=== PATIENT | female | born 1945 | race African-American/Black ===

== ENCOUNTER 2018-06-09 15:41 | Inpatient (IN) | payer MEDICARE, OTHER ==
[~2018-06-09] VITALS: Ht 167.6 cm; Wt 103.0 kg
[~2018-06-09 15:41] MED LIST: LIPITOR10 MG PO; NAPROXEN500 M1 ORAL; NORCO 5-325 TA1 EACH ORAL; NORVASC10 MG PO
[2018-06-09 21:30] VITALS: BP 146/67
[2018-06-09] MEDS ORDERED: Acetaminophen 500mg (ES) tab ORAL PRN (21:30)
[2018-06-09] MEDS: Docusate 100mg cap ORAL SCH (22:36)
[2018-06-09] MEDS: Atorvastatin 20mg tab ORAL SCH (22:39)
[2018-06-09] MEDS: Carvedilol 12.5mg tab ORAL SCH (22:39)
[2018-06-09] MEDS: Heparin 5000 units/ml inj SUBQ SCH (23:08)
[2018-06-10] VITALS: BP 111/53
[2018-06-10 04:00] VITALS: BP 121/53
[2018-06-10] MEDS: Heparin 5000 units/ml inj SUBQ SCH ×3 (05:38→22:19)
[2018-06-10] MEDS: metFORMIN 500mg tab ORAL SCH ×3 (06:25→16:59)
[2018-06-10] MEDS: NovoLOG Insulin Flexpen SUBQ SCH ×4 (06:26→20:36)
[2018-06-10] MEDS ORDERED: METFORMIN HCL500 M1 ORAL (06:29)
[2018-06-10] MEDS ORDERED: ASPIRIN81 M3 PO (06:49)
[2018-06-10] MEDS ORDERED: SPIRONOLACTONE100 MG ORAL (06:49)
[2018-06-10] MEDS ORDERED: APRESOLINE50 MG ORAL (06:49)
[2018-06-10] MEDS ORDERED: AMLODIPINE BESYL5 MG ORAL (06:49)
[2018-06-10] MEDS ORDERED: COLACE100 MG ORAL (06:49)
[2018-06-10] MEDS ORDERED: CRESTOR10 M1 ORAL (06:49)
[2018-06-10] MEDS ORDERED: FUROSEMIDE40 MG/5 ML ORAL (06:49)
[2018-06-10] MEDS ORDERED: PROTONIX20 MG ORAL (06:49)
[2018-06-10] MEDS ORDERED: COREG12.5 MG ORAL (06:49)
[2018-06-10] MEDS ORDERED: BENICAR HCT 401 EAC1 ORAL (06:50)
[2018-06-10 06:59] LABS: ALANINE AMINOTRANSFERASE 15 U/L (12-78); ALBUMIN 3.3 G/DL (3.4-5.0); ALBUMIN/GLOBULIN RATIO 0.7 (1.0-2.7); ALKALINE PHOSPHATASE 82 U/L (46-116); ANION GAP 8 mmol/L (5-15); ASPARTATE AMINO TRANSFERASE 13 U/L (15-37); BILIRUBIN,TOTAL 0.4 MG/DL (0.2-1.0); BLOOD UREA NITROGEN 43 mg/dL (7-18); CALCIUM 8.8 MG/DL (8.5-10.1); CARBON DIOXIDE 28 MMOL/L (21-32); CHLORIDE 101 MMOL/L (98-107); CHOLESTEROL 108 MG/DL (< 200); CREATININE 1.8 MG/DL (0.55-1.30); HDL CHOLESTEROL 43 MG/DL (40-60); PHOSPHORUS 4.8 MG/DL (2.5-4.9); POTASSIUM 4.1 MMOL/L (3.5-5.1); SODIUM 137 MMOL/L (136-145); TRIGLYCERIDES 87 MG/DL (30-150)
[2018-06-10 07:14] LABS: BASOPHILS % (AUTO) 0.8 % (0.0-2.0); HEMATOCRIT 26.3 % (37.0-47.0); HEMOGLOBIN 8.6 G/DL (12.0-16.0); LYMPHOCYTES % (AUTO) 18.6 % (20.0-45.0); MEAN CORPUSCULAR VOLUME 89 FL (80-99); MONOCYTES % (AUTO) 9.1 % (1.0-10.0); NEUTROPHILS % (AUTO) 70.4 % (45.0-75.0); PLATELET COUNT 274 K/UL (150-450); RED BLOOD COUNT 2.96 M/UL (4.20-5.40); WHITE BLOOD COUNT 10.9 K/UL (4.8-10.8)
[2018-06-10 08:00] VITALS: BP 149/56
[2018-06-10] MEDS: Spironolactone 50mg tab ORAL SCH (09:11)
[2018-06-10] MEDS: Carvedilol 12.5mg tab ORAL SCH ×2 (09:11→20:36)
[2018-06-10] MEDS: Aspirin Baby 81mg ORAL SCH (09:12)
--- NOTE | 2018-06-10 10:07 | Consultation ---
History of Present Illness General Date patient seen: Jun 10, 2018 Present Illness HPI 72 year old female with hx of DM, HTN, CHF ( based on meds that she takes), poor historian was taken by her daughter to [facility] with cc of increased pain in bottom of feet and inability to care for herself. Pt was found to have renal failure and transferred to [facility] for further management. Allergies: Coded Allergies: No Known Allergies (Unverified , 09/17/12) Medication History Scheduled Amlodipine Besylate* (Amlodipine Besylate*), 5 MG ORAL DAILY, (Reported) Aspirin (Aspirin), 81 MG PO DAILY, (Reported) Carvedilol (Coreg), 12.5 MG ORAL EVERY 12 HOURS, (Reported) Docusate Sodium* (Colace*), 100 MG ORAL QHS, (Reported) Furosemide (Furosemide), 20 MG ORAL DAILY, (Reported) Metformin Hcl* (Metformin Hcl*), 500 MG ORAL THREE TIMES A DAY, (Reported) Pantoprazole Sodium (Protonix), 40 MG ORAL DAILY, (Reported) Rosuvastatin Calcium (Crestor), 10 MG ORAL DAILY, (Reported) Spironolactone* (Spironolactone*), 50 MG ORAL DAILY, (Reported) Discontinued Medications Amlodipine Besylate (Norvasc), 10 MG PO DAILY, (Reported) Discontinued Reason: Medication dose changed Hydralazine HCl (Hydralazine HCl), 50 MG ORAL TID, (Reported) Discontinued Reason: MD discontinued med Olmesartan/Hydrochlorothiazide 40-25MG (Benicar Hct 40-25 Mg Tablet), 1 TAB ORAL DAILY, (Reported) Discontinued Reason: MD discontinued med Patient History Healthcare decision maker N Resuscitation status Full Code Advanced Directive on File No Past Medical/Surgical History Past Medical/Surgical History: (1) History of hypertension (2) Diabetes mellitus Review of Systems Constitutional: Reports: weakness Neurological: Reports: numbness, paresthesia - in feet All Other Systems: negative except mentioned in HPI Physical Exam General Appearance: WD/WN Lines, tubes and drains: peripheral HEENT: normocephalic, atraumatic Neck: non-tender, normal alignment Respiratory/Chest: chest wall non-tender, lungs clear Cardiovascular/Chest: normal peripheral pulses, normal rate Abdomen: normal bowel sounds, non tender Last 24 Hour Vital Signs Date Time Temp Pulse Resp B/P (MAP) Pulse Ox O2 Delivery O2 Flow Rate FiO2 06/10/18 09:12 74 149/56 06/10/18 09:11 74 149/56 06/10/18 08:00 97.9 74 18 149/56 (87) 97 06/10/18 04:00 63 06/10/18 04:00 97.7 62 20 121/53 (75) 97 06/10/18 00:00 99.2 68 18 111/53 (72) 96 06/10/18 00:00 62 06/09/18 22:39 70 146/67 06/09/18 22:00 Room Air 06/09/18 21:30 99.0 68 16 146/67 (93) 99 06/09/18 20:50 70 Intake and Output 06/09/18 06/10/18 19:00 07:00 Intake Total 240 ml Balance 240 ml Intake Oral 240 ml # Voids 2 Laboratory Tests Test 06/10/18 06:05 White Blood Count 10.9 K/UL (4.8-10.8) H Red Blood Count 2.96 M/UL (4.20-5.40) L Hemoglobin 8.6 G/DL (12.0-16.0) L Hematocrit 26.3 % (37.0-47.0) L Mean Corpuscular Volume 89 FL (80-99) Mean Corpuscular Hemoglobin 29.1 PG (27.0-31.0) Mean Corpuscular Hemoglobin Concent 32.8 G/DL (32.0-36.0) Red Cell Distribution Width 13.0 % (11.6-14.8) Platelet Count 274 K/UL (150-450) Mean Platelet Volume 6.7 FL (6.5-10.1) Neutrophils (%) (Auto) 70.4 % (45.0-75.0) Lymphocytes (%) (Auto) 18.6 % (20.0-45.0) L Monocytes (%) (Auto) 9.1 % (1.0-10.0) Eosinophils (%) (Auto) 1.0 % (0.0-3.0) Basophils (%) (Auto) 0.8 % (0.0-2.0) Sodium Level 137 MMOL/L (136-145) Potassium Level 4.1 MMOL/L (3.5-5.1) Chloride Level 101 MMOL/L (98-107) Carbon Dioxide Level 28 MMOL/L (21-32) Anion Gap 8 mmol/L (5-15) Blood Urea Nitrogen 43 mg/dL (7-18) H Creatinine 1.8 MG/DL (0.55-1.30) H Estimat Glomerular Filtration Rate mL/min (>60) Glucose Level 142 MG/DL (74-106) H Hemoglobin A1c 6.5 % (4.3-6.0) H Uric Acid 10.7 MG/DL (2.6-7.2) H Calcium Level 8.8 MG/DL (8.5-10.1) Phosphorus Level 4.8 MG/DL (2.5-4.9) Magnesium Level 2.1 MG/DL (1.8-2.4) Total Bilirubin 0.4 MG/DL (0.2-1.0) Aspartate Amino Transf (AST/SGOT) 13 U/L (15-37) L Alanine Aminotransferase (ALT/SGPT) 15 U/L (12-78) Alkaline Phosphatase 82 U/L (46-116) Troponin I 0.000 ng/mL (0.000-0.056) Total Protein 7.8 G/DL (6.4-8.2) Albumin 3.3 G/DL (3.4-5.0) L Globulin 4.5 g/dL Albumin/Globulin Ratio 0.7 (1.0-2.7) L Triglycerides Level 87 MG/DL (30-150) Cholesterol Level 108 MG/DL (< 200) LDL Cholesterol 58 mg/dL (<100) HDL Cholesterol 43 MG/DL (40-60) Cholesterol/HDL Ratio 2.5 (3.3-4.4) L Height (Feet): 5 Height (Inches): 6.00 Weight (Pounds): 227 Medications Current Medications Medications (Trade) Dose Ordered Sig/Nick Route PRN Reason Start Time Stop Time Status Last Admin Dose Admin Acetaminophen (Tylenol) 500 mg Q4H PRN ORAL Mild Pain/Temp > 100.5 06/09/18 21:30 07/09/18 21:29 Amlodipine Besylate (Norvasc) 5 mg DAILY ORAL 06/10/18 09:00 07/10/18 08:59 06/10/18 09:12 Aspirin (ASA) 81 mg DAILY ORAL 06/10/18 09:00 07/10/18 08:59 06/10/18 09:12 Atorvastatin Calcium (Lipitor) 40 mg BEDTIME ORAL 06/09/18 22:30 07/09/18 22:29 06/09/18 22:39 Carvedilol (Coreg) 12.5 mg EVERY 12 HOURS ORAL 06/09/18 22:30 07/09/18 22:29 06/10/18 09:11 Colchicine (Colchicine) 0.6 mg Q8HR PRN ORAL For Pain 06/09/18 21:30 07/09/18 21:29 06/10/18 09:11 Dextrose (Dextrose 50%) 25 ml Q30M PRN IV Hypoglycemia 06/09/18 21:45 07/09/18 21:44 Dextrose (Dextrose 50%) 50 ml Q30M PRN IV Hypoglycemia 06/09/18 21:45 07/09/18 21:44 Docusate Sodium (Colace) 100 mg QHS ORAL 06/09/18 22:30 07/09/18 22:29 06/09/18 22:36 Furosemide (Lasix) 20 mg DAILY ORAL 06/10/18 09:00 07/10/18 08:59 06/10/18 09:12 Heparin Sodium (Porcine) (Heparin 5000 units/ml) 5,000 units EVERY 8 HOURS SUBQ 06/09/18 22:00 07/09/18 21:59 06/10/18 05:38 Insulin Aspart (NovoLOG) BEFORE MEALS AND HS SUBQ 06/10/18 06:30 07/10/18 06:29 06/10/18 06:26 Metformin HCl (Glucophage) 500 mg TIAC ORAL 06/10/18 06:30 07/10/18 06:29 06/10/18 06:25 Ondansetron HCl (Zofran) 4 mg Q4HR PRN IVP Nausea & Vomiting 06/09/18 21:30 07/09/18 21:29 Pantoprazole (Protonix) 40 mg DAILY ORAL 06/10/18 09:00 07/10/18 08:59 06/10/18 09:11 Spironolactone (Aldactone) 50 mg DAILY ORAL 06/10/18 09:00 07/10/18 08:59 06/10/18 09:11 Assessment/Plan Problem List: (1) ACS (acute coronary syndrome) ICD Codes: I24.9 - Acute ischemic heart disease, unspecified SNOMED: 819413814 (2) ATN (acute tubular necrosis) ICD Codes: N17.0 - Acute kidney failure with tubular necrosis SNOMED: 60327930 (3) Decreased activities of daily living (ADL) ICD Codes: R68.89 - Other general symptoms and signs SNOMED: 886016120 (4) Diabetes mellitus ICD Codes: E11.9 - Type 2 diabetes mellitus without complications SNOMED: 08283482 (5) Neuropathy ICD Codes: G62.9 - Polyneuropathy, unspecified SNOMED: 861484985 (6) History of hypertension ICD Codes: Z86.79 - Personal history of other diseases of the circulatory system SNOMED: 605796176 Assessment/Plan serial EKG, troponin Echo Cardiology to see renal studies social service might need placement pt/ot Calli Lux MD Jun 10, 2018 10:07
[2018-06-10 10:14] LABS: CREATINE KINASE 151 U/L (26-308)
[2018-06-10] MEDS ORDERED: NovoLOG Insulin Flexpen SUBQ SCH (11:30)
[2018-06-10 12:00] VITALS: BP 138/56
[2018-06-10] MEDS ORDERED: methylPREDNISolone Sod Succ 500 MG in NS 110 ML IVPB ONE (13:00)
[2018-06-10] MEDS: Indomethacin 25mg cap ORAL SCH ×2 (13:14→17:29)
--- NOTE | 2018-06-10 14:14 | Cardiology Progress Note ---
Assessment/Plan Assessment/Plan [id number] Subjective Subjective Past Medical History: Diagnosis Date History of cancer left breast CA History of gastrointestinal disorder GERD History of hypertension History of stroke 12/2014, left posterior limb Past Surgical History: Procedure Laterality Date HX HYSTERECTOMY partial, 30yrs ago OTHER SURGICAL HISTORY left breast lymphectomy Allergies:~~Review of patient's allergies indicates no known allergies.~ Family history:~family history includes Heart Attack in her mother. There is no history of Diabetes. Social history:~~reports that she has never smoked. She does not have any smokeless tobacco history on file. She reports that she does not drink alcohol or use illicit drugs.~ Objective Last 24 Hour Vital Signs Date Time Temp Pulse Resp B/P (MAP) Pulse Ox O2 Delivery O2 Flow Rate FiO2 06/10/18 12:00 98.5 63 18 138/56 (83) 99 06/10/18 11:33 62 06/10/18 09:12 74 149/56 06/10/18 09:11 74 149/56 06/10/18 08:20 Room Air 06/10/18 08:00 97.9 74 18 149/56 (87) 97 06/10/18 07:30 74 06/10/18 04:00 63 06/10/18 04:00 97.7 62 20 121/53 (75) 97 06/10/18 00:00 99.2 68 18 111/53 (72) 96 06/10/18 00:00 62 06/09/18 22:39 70 146/67 06/09/18 22:00 Room Air 06/09/18 21:30 99.0 68 16 146/67 (93) 99 06/09/18 20:50 70 Intake and Output 06/09/18 06/10/18 19:00 07:00 Intake Total 240 ml Balance 240 ml Intake Oral 240 ml # Voids 2 Laboratory Tests Test 06/10/18 06:05 White Blood Count 10.9 K/UL (4.8-10.8) H Red Blood Count 2.96 M/UL (4.20-5.40) L Hemoglobin 8.6 G/DL (12.0-16.0) L Hematocrit 26.3 % (37.0-47.0) L Mean Corpuscular Volume 89 FL (80-99) Mean Corpuscular Hemoglobin 29.1 PG (27.0-31.0) Mean Corpuscular Hemoglobin Concent 32.8 G/DL (32.0-36.0) Red Cell Distribution Width 13.0 % (11.6-14.8) Platelet Count 274 K/UL (150-450) Mean Platelet Volume 6.7 FL (6.5-10.1) Neutrophils (%) (Auto) 70.4 % (45.0-75.0) Lymphocytes (%) (Auto) 18.6 % (20.0-45.0) L Monocytes (%) (Auto) 9.1 % (1.0-10.0) Eosinophils (%) (Auto) 1.0 % (0.0-3.0) Basophils (%) (Auto) 0.8 % (0.0-2.0) Erythrocyte Sedimentation Rate 108 MM/HR (0-30) H Sodium Level 137 MMOL/L (136-145) Potassium Level 4.1 MMOL/L (3.5-5.1) Chloride Level 101 MMOL/L (98-107) Carbon Dioxide Level 28 MMOL/L (21-32) Anion Gap 8 mmol/L (5-15) Blood Urea Nitrogen 43 mg/dL (7-18) H Creatinine 1.8 MG/DL (0.55-1.30) H Estimat Glomerular Filtration Rate mL/min (>60) Glucose Level 142 MG/DL (74-106) H Hemoglobin A1c 6.5 % (4.3-6.0) H Uric Acid 10.7 MG/DL (2.6-7.2) H Calcium Level 8.8 MG/DL (8.5-10.1) Phosphorus Level 4.8 MG/DL (2.5-4.9) Magnesium Level 2.1 MG/DL (1.8-2.4) Total Bilirubin 0.4 MG/DL (0.2-1.0) Aspartate Amino Transf (AST/SGOT) 13 U/L (15-37) L Alanine Aminotransferase (ALT/SGPT) 15 U/L (12-78) Alkaline Phosphatase 82 U/L (46-116) Total Creatine Kinase 151 U/L (26-308) Troponin I 0.000 ng/mL (0.000-0.056) C-Reactive Protein, Quantitative 4.0 mg/dL (0.00-0.90) H Total Protein 7.8 G/DL (6.4-8.2) Albumin 3.3 G/DL (3.4-5.0) L Globulin 4.5 g/dL Albumin/Globulin Ratio 0.7 (1.0-2.7) L Triglycerides Level 87 MG/DL (30-150) Cholesterol Level 108 MG/DL (< 200) LDL Cholesterol 58 mg/dL (<100) HDL Cholesterol 43 MG/DL (40-60) Cholesterol/HDL Ratio 2.5 (3.3-4.4) L Giovanni Veloz MD Jun 10, 2018 14:14
--- NOTE | 2018-06-10 15:24 | Cardiology Report ---
APPROVED REPORT EXAM: Two-dimensional and M-mode echocardiogram with Doppler and color Doppler. INDICATION LV FUNCTION M-Mode DIMENSIONS IVSd1.2 (0.7-1.1cm)Left Atrium (MM)3.8 (1.6-4.0cm) LVDd5.4 (3.5-5.6cm)Aortic Root3.2 (2.0-3.7cm) PWd1.1 (0.7-1.1cm)Aortic Cusp Exc.1.8 (1.5-2.0cm) IVSs1.9 cm LVDs3.3 (2.5-4.0cm) PWs1.5 cm Normal left ventricular chamber size, systolic function and wall motion . Left ventricular ejection fraction estimated to be 60 %. Mild left ventricular hypertrophy. No evidence of pericardial effusion. All other cardiac chamber sizes are within normal limits. Focal aortic valve sclerosis with adequate cusp excursion. Thickened mitral valve leaflets with normal excursion. Mitral annulus and aortic root calcification. Pulmonic valve not well visualized. Normal tricuspid valve structure. IVC at normal size physiologic collapse . A color flow and spectral Doppler study was performed and revealed: No aortic regurgitation. Trace mitral regurgitation. Mitral diastolic velocities suggest reduced left ventricular relaxation c/w mild LV diastolic dysfunction (Grade I ) Mild tricuspid regurgitation. Tricuspid systolic velocities suggests peak right ventricular systolic pressure of 35 mmHg,consistent with mild pulmonary hypertension .
[2018-06-10 16:00] VITALS: BP 130/60
--- NOTE | 2018-06-10 19:30 | Consultation ---
DATE OF CONSULTATION: 06/10/2018 CARDIAC CONSULTATION CONSULTING PHYSICIAN: Giovanni Veloz M.D. REFERRING PHYSICIAN: 1. Papa French M.D. 2. Calli Lux M.D. REASON FOR REFERRAL: History of coronary artery disease. HISTORY OF PRESENT ILLNESS: This is a 72-year-old, female, who is a [facility]. The patient presented to the hospital because of pain in both the soles of her feet but she said they started recently. She says she is able to ambulate with help of a walker around the facility and sometimes even in the halls of the facility without much in terms of chest pain or shortness of breath. There is no PND or orthopnea. She uses one pillow. There is no dizziness on standing. No heart pounding or palpitations. PAST MEDICAL HISTORY: Extensive and documented at [facility] with history of breast cancer status post lumpectomy, history of gastroesophageal reflux disease, hypertension, history of stroke in history of diabetes mellitus, hypertension, hyperlipidemia, and dehydration. She has a history of hysterectomy some 30 years ago. SOCIAL HISTORY: She never smoked. No alcoholic beverages. She lives at a facility. She has a daughter who lives in [place] that checks on her intermittently. REVIEW OF SYSTEMS: GASTROINTESTINAL: She indicates she has had diarrhea as of today. No black or bloody stools. GENITOURINARY: Denies any discomfort on urination. No blood in her urine. PULMONARY: Denies any coughing or wheezing. CONSTITUTIONAL: No fever, chills, or night sweats. NEUROLOGIC: Negative. PHYSICAL EXAMINATION: GENERAL: Shows to be obese elderly female, in no apparent respiratory distress. NECK: Supple. No jugular venous distention. LUNGS: Clear to auscultation and percussion. CARDIAC: S1 is normal. S2 is normal. Regular rate and rhythm. No heaves, thrills, or gallops noted. ABDOMEN: Obese. Positive bowel sounds. Nontender. EXTREMITIES: There is no edema, clubbing, or cyanosis. NEUROLOGICAL: She is awake, alert, responsive, and in no apparent respiratory distress. LABORATORY AND DIAGNOSTIC DATA: Sodium is 137, potassium 4.1, chloride 101, bicarb 24, BUN of 42, creatinine 1.8 glucose of 142, A1c of 6.5 with a uric acid 10.7. Troponin first set was negative. CK of 151. Total cholesterol was 108, LDL of 58 and HDL of 43. White count 10.9, hemoglobin 8.6, and platelet count of 274. Sedimentation rate of 104. She has no readings here from the x-ray although she had a CT scan that did not show any evidence of abnormality at [facility] where she was before, she was transferred here. EKG is sinus, no ST or T-wave abnormalities. Review of [facility] data was performed, no real cardiac studies recently at [facility] either. ASSESSMENT AND PLAN: 1. Hypertension. 2. Diabetes. 3. Paresthesias in feet likely secondary to peripheral neuropathy. 4. History of stroke previously. 5. Obesity. This patient was seen in cardiac consultation. She does not seem to endorse any chest pain. No pressure, tightness, heaviness or discomfort in the chest at this time. She is minimally ambulatory according to her own description. First set of cardiac enzymes are negative. Her electrocardiogram is also negative. appeared to be well controlled. She should be continued on her home medications which includes amlodipine, aspirin, Coreg, Colace, Lasix, metformin, Crestor, spironolactone. Creatinine seems to be relatively high than it has been previously at [facility]. Her last creatinine at [facility] was 0.9 that was two years ago. Giovanni Veloz M.D. DR: Nicholas JOB#: [id number] CC:
--- NOTE | 2018-06-10 19:45 | History & Physical ---
History and Physical History & Physicial dictated for Int med-dr French no. [id number]. Bk Kellogg MD Jun 10, 2018 19:45
[2018-06-10 20:00] VITALS: BP 141/75
[2018-06-10] MEDS: Atorvastatin 20mg tab ORAL SCH (20:35)
[2018-06-10] MEDS: Docusate 100mg cap ORAL SCH (20:35)
--- NOTE | 2018-06-10 21:37 | Consultation ---
History of Present Illness General Date patient seen: Jun 10, 2018 Present Illness HPI 72-year-old, female, who is a resident of convalescent facility. The patient presented to the hospital because of pain in both the soles of her feet. The pt is low energy and depressed. the pt is addition c/o anxiety and insomnia. she denied si/hi. The pt stated that she has lost interest in daily activities no si/hi Allergies: Coded Allergies: No Known Allergies (Unverified , 09/17/12) Medication History Scheduled Amlodipine Besylate* (Amlodipine Besylate*), 5 MG ORAL DAILY, (Reported) Aspirin (Aspirin), 81 MG PO DAILY, (Reported) Carvedilol (Coreg), 12.5 MG ORAL EVERY 12 HOURS, (Reported) Docusate Sodium* (Colace*), 100 MG ORAL QHS, (Reported) Furosemide (Furosemide), 20 MG ORAL DAILY, (Reported) Metformin Hcl* (Metformin Hcl*), 500 MG ORAL THREE TIMES A DAY, (Reported) Pantoprazole Sodium (Protonix), 40 MG ORAL DAILY, (Reported) Rosuvastatin Calcium (Crestor), 10 MG ORAL DAILY, (Reported) Spironolactone* (Spironolactone*), 50 MG ORAL DAILY, (Reported) Discontinued Medications Amlodipine Besylate (Norvasc), 10 MG PO DAILY, (Reported) Discontinued Reason: Medication dose changed Hydralazine HCl (Hydralazine HCl), 50 MG ORAL TID, (Reported) Discontinued Reason: MD discontinued med Olmesartan/Hydrochlorothiazide 40-25MG (Benicar Hct 40-25 Mg Tablet), 1 TAB ORAL DAILY, (Reported) Discontinued Reason: MD discontinued med Patient History History Provided By: Patient, Medical Record, PMD Healthcare decision maker N Resuscitation status Full Code Advanced Directive on File No Past Medical/Surgical History Past Medical/Surgical History: (1) arthritis (2) Diabetes mellitus (3) History of hypertension (4) Gout (5) Neuropathy (6) Decreased activities of daily living (ADL) (7) ATN (acute tubular necrosis) (8) ACS (acute coronary syndrome) Review of Systems Psychiatric: Reports: prior hx, anxiety, depressed feelings Physical Exam General Appearance: alert Neurologic: oriented x 3, responsive, depressed affect Last 24 Hour Vital Signs Date Time Temp Pulse Resp B/P (MAP) Pulse Ox O2 Delivery O2 Flow Rate FiO2 06/10/18 20:36 76 141/75 06/10/18 20:00 76 06/10/18 16:16 60 06/10/18 16:00 98.1 62 18 130/60 (83) 96 06/10/18 12:00 98.5 63 18 138/56 (83) 99 06/10/18 11:33 62 06/10/18 09:12 74 149/56 06/10/18 09:11 74 149/56 06/10/18 08:20 Room Air 06/10/18 08:00 97.9 74 18 149/56 (87) 97 06/10/18 07:30 74 06/10/18 04:00 63 06/10/18 04:00 97.7 62 20 121/53 (75) 97 06/10/18 00:00 99.2 68 18 111/53 (72) 96 06/10/18 00:00 62 06/09/18 22:39 70 146/67 06/09/18 22:00 Room Air Intake and Output 06/09/18 06/10/18 18:59 06:59 Intake Total 240 ml Balance 240 ml Intake Oral 240 ml # Voids 2 Laboratory Tests Test 06/10/18 06:05 06/10/18 14:10 White Blood Count 10.9 K/UL (4.8-10.8) H Red Blood Count 2.96 M/UL (4.20-5.40) L Hemoglobin 8.6 G/DL (12.0-16.0) L Hematocrit 26.3 % (37.0-47.0) L Mean Corpuscular Volume 89 FL (80-99) Mean Corpuscular Hemoglobin 29.1 PG (27.0-31.0) Mean Corpuscular Hemoglobin Concent 32.8 G/DL (32.0-36.0) Red Cell Distribution Width 13.0 % (11.6-14.8) Platelet Count 274 K/UL (150-450) Mean Platelet Volume 6.7 FL (6.5-10.1) Neutrophils (%) (Auto) 70.4 % (45.0-75.0) Lymphocytes (%) (Auto) 18.6 % (20.0-45.0) L Monocytes (%) (Auto) 9.1 % (1.0-10.0) Eosinophils (%) (Auto) 1.0 % (0.0-3.0) Basophils (%) (Auto) 0.8 % (0.0-2.0) Erythrocyte Sedimentation Rate 108 MM/HR (0-30) H Sodium Level 137 MMOL/L (136-145) Potassium Level 4.1 MMOL/L (3.5-5.1) Chloride Level 101 MMOL/L (98-107) Carbon Dioxide Level 28 MMOL/L (21-32) Anion Gap 8 mmol/L (5-15) Blood Urea Nitrogen 43 mg/dL (7-18) H Creatinine 1.8 MG/DL (0.55-1.30) H Estimat Glomerular Filtration Rate mL/min (>60) Glucose Level 142 MG/DL (74-106) H Hemoglobin A1c 6.5 % (4.3-6.0) H Uric Acid 10.7 MG/DL (2.6-7.2) H Calcium Level 8.8 MG/DL (8.5-10.1) Phosphorus Level 4.8 MG/DL (2.5-4.9) Magnesium Level 2.1 MG/DL (1.8-2.4) Total Bilirubin 0.4 MG/DL (0.2-1.0) Aspartate Amino Transf (AST/SGOT) 13 U/L (15-37) L Alanine Aminotransferase (ALT/SGPT) 15 U/L (12-78) Alkaline Phosphatase 82 U/L (46-116) Total Creatine Kinase 151 U/L (26-308) Troponin I 0.000 ng/mL (0.000-0.056) C-Reactive Protein, Quantitative 4.0 mg/dL (0.00-0.90) H Total Protein 7.8 G/DL (6.4-8.2) Albumin 3.3 G/DL (3.4-5.0) L Globulin 4.5 g/dL Albumin/Globulin Ratio 0.7 (1.0-2.7) L Triglycerides Level 87 MG/DL (30-150) Cholesterol Level 108 MG/DL (< 200) LDL Cholesterol 58 mg/dL (<100) HDL Cholesterol 43 MG/DL (40-60) Cholesterol/HDL Ratio 2.5 (3.3-4.4) L Stool Occult Blood Pending Height (Feet): 5 Height (Inches): 6.00 Weight (Pounds): 227 Medications Current Medications Medications (Trade) Dose Ordered Sig/Nick Route PRN Reason Start Time Stop Time Status Last Admin Dose Admin Acetaminophen (Tylenol) 500 mg Q4H PRN ORAL Mild Pain/Temp > 100.5 06/09/18 21:30 07/09/18 21:29 Amlodipine Besylate (Norvasc) 5 mg DAILY ORAL 06/10/18 09:00 07/10/18 08:59 06/10/18 09:12 Aspirin (ASA) 81 mg DAILY ORAL 06/10/18 09:00 07/10/18 08:59 06/10/18 09:12 Atorvastatin Calcium (Lipitor) 40 mg BEDTIME ORAL 06/09/18 22:30 07/09/18 22:29 06/10/18 20:35 Carvedilol (Coreg) 12.5 mg EVERY 12 HOURS ORAL 06/09/18 22:30 07/09/18 22:29 06/10/18 20:36 Colchicine (Colchicine) 0.6 mg Q8HR PRN ORAL For Pain 06/09/18 21:30 07/09/18 21:29 06/10/18 20:35 Dextrose (Dextrose 50%) 25 ml Q30M PRN IV Hypoglycemia 06/09/18 21:45 07/09/18 21:44 Dextrose (Dextrose 50%) 50 ml Q30M PRN IV Hypoglycemia 06/09/18 21:45 07/09/18 21:44 Diphenhydramine HCl (Benadryl) 25 mg BEDTIME ORAL 06/10/18 21:00 07/10/18 20:59 06/10/18 20:35 Docusate Sodium (Colace) 100 mg QHS ORAL 06/09/18 22:30 07/09/18 22:29 06/10/18 20:35 Escitalopram Oxalate (Lexapro) 10 mg DAILY ORAL 06/10/18 12:00 07/10/18 11:59 06/10/18 12:02 Furosemide (Lasix) 20 mg DAILY ORAL 06/10/18 09:00 07/10/18 08:59 06/10/18 09:12 Heparin Sodium (Porcine) (Heparin 5000 units/ml) 5,000 units EVERY 8 HOURS SUBQ 06/09/18 22:00 07/09/18 21:59 06/10/18 14:39 Indomethacin (Indocin) 25 mg THREE TIMES A DAY ORAL 06/10/18 13:00 07/10/18 12:59 06/10/18 17:29 Insulin Aspart (NovoLOG) BEFORE MEALS AND HS SUBQ 06/10/18 06:30 07/10/18 06:29 06/10/18 20:36 Metformin HCl (Glucophage) 500 mg TIAC ORAL 06/10/18 06:30 07/10/18 06:29 06/10/18 16:59 Ondansetron HCl (Zofran) 4 mg Q4HR PRN IVP Nausea & Vomiting 06/09/18 21:30 07/09/18 21:29 Pantoprazole (Protonix) 40 mg DAILY ORAL 06/10/18 09:00 07/10/18 08:59 06/10/18 09:11 Spironolactone (Aldactone) 50 mg DAILY ORAL 06/10/18 09:00 07/10/18 08:59 06/10/18 09:11 Assessment/Plan Problem List: (1) Major depression, recurrent ICD Codes: F33.9 - Major depressive disorder, recurrent, unspecified SNOMED: 78812801 (2) Anxiety disorder ICD Codes: F41.9 - Anxiety disorder, unspecified SNOMED: 085473878 Status: stable Assessment/Plan Lexapro 10mg qam Benadryl 25mg qhs provided reese/Geovanna Acuna MD Jun 10, 2018 21:37
--- NOTE | 2018-06-10 22:45 | History and Physical Report ---
DATE OF ADMISSION: 06/09/2018 CHIEF COMPLAINT: The patient is a 72-year-old female, who presents with chief complaint of bilateral leg and feet swelling. HISTORY OF PRESENT ILLNESS: This began two days prior to admission. The patient began to experience extreme bilateral leg and foot pain. The patient has history of gout. The patient states this attack was more severe than others. The patient states she was unable to get out of bed. The patient states every time she put her legs over the side of the bed, the pain became unbearable. The patient initially presented to [facility] Emergency Room. The patient was transferred to [facility] for insurance purposes. The patient is admitted for bilateral lower extremity pain to rule out acute gouty arthritis. REVIEW OF SYSTEMS: CONSTITUTIONAL: The patient denies weight loss or weight gain. The patient denies fever or chills. HEENT: The patient denies ear or throat pain. The patient denies headache. CARDIOVASCULAR: The patient denies palpitations or chest pain. CHEST: The patient denies wheeze or shortness of breath. ABDOMINAL: The patient denies nausea, vomiting, diarrhea, or constipation. GENITOURINARY: The patient denies dysuria or increased frequency of urination. NEUROMUSCULAR: The patient complains of bilateral leg and foot pain as above. The patient denies seizures or generalized weakness. PAST MEDICAL HISTORY: Significant for: 1. Diabetes type 2. 2. Hypertension. 3. Gout. 4. Hypercholesterolemia. PAST SURGICAL HISTORY: The patient denies. CURRENT MEDICATIONS: 1. Amlodipine 5 mg p.o. daily. 2. Aspirin 81 mg p.o. daily. 3. Carvedilol 12.5 mg p.o. twice daily. 4. Metformin 500 mg p.o. 3 times daily. 5. Protonix 20 mg p.o. daily. 6. Crestor 10 mg p.o. daily. 7. Spironolactone 50 mg p.o. daily. ALLERGIES: No known drug allergies. SOCIAL HISTORY: The patient is and lives alone. The patient has a grown daughter who lives nearby. The patient denies tobacco or alcohol use. PHYSICAL EXAMINATION: VITAL SIGNS: Temperature 98.3, respirations 17, pulse 78, blood pressure 133/78. GENERAL: The patient is a well-developed, well-nourished, slightly obese female, in no apparent distress. HEENT: Eyes, pupils equal and responsive to light and accommodation. Extraocular movements are intact. NECK: Supple without lymphadenopathy. CHEST: Lungs are clear to auscultation bilaterally without wheezes or rales. CARDIOVASCULAR: Regular rate. S1, S2 are normal without murmurs, rubs, or gallops. ABDOMEN: Soft, nontender, nondistended. Positive bowel sounds. No evidence of hepatosplenomegaly. Currently, no rebound or guarding noted. EXTREMITIES: Negative for clubbing, cyanosis, or edema. RECTAL: Refused. GENITAL: Refused. NEUROLOGIC: Cranial nerves II through XII are grossly intact without focal deficits. Motor strength is 5/5 bilaterally intact. Deep tendon reflexes are 2+, plantar. LABORATORY STUDIES: WBC 18.9, hemoglobin 10.8, hematocrit 32.9, platelets 364,000. Sodium 135, potassium 5.0, chloride 99, CO2 23, BUN 41, creatinine 1.60, glucose 140. Uric acid elevated at 10.6. CT scan of the brain revealed no acute hemorrhage or infarct. ASSESSMENT: This is a 72-year-old female with: 1. Bilateral lower extremity pain. 2. Gout. 3. Diabetes type 2. 4. Hypertension. 5. Hypercholesterolemia. TREATMENT: 1. Bilateral lower extremity pain/gout. The patient has been started empirically on intravenous Solu-Medrol. The patient has been off of her colchicine as well. The patient's pain is somewhat improved. 2. Diabetes type 2. Regular insulin sliding scale has been instituted. 3. Hypertension. Continue amlodipine and spironolactone as above. 4. Hypercholesterolemia. Continue simvastatin as above. Bk Kellogg M.D. DR: Rakel JOB#: [id number] CC:
[2018-06-11] VITALS: BP 119/54
[2018-06-11 04:00] VITALS: BP 156/79
[2018-06-11] MEDS: Heparin 5000 units/ml inj SUBQ SCH ×3 (05:58→21:58)
[2018-06-11] MEDS: metFORMIN 500mg tab ORAL SCH ×3 (06:18→17:18)
[2018-06-11] MEDS: NovoLOG Insulin Flexpen SUBQ SCH ×4 (06:19→20:31)
[2018-06-11 08:00] VITALS: BP 151/69
[2018-06-11] MEDS: Spironolactone 50mg tab ORAL SCH (09:03)
[2018-06-11] MEDS: Aspirin Baby 81mg ORAL SCH (09:03)
[2018-06-11] MEDS: Indomethacin 25mg cap ORAL SCH ×3 (09:04→17:18)
[2018-06-11] MEDS: Carvedilol 12.5mg tab ORAL SCH ×2 (09:04→20:33)
[2018-06-11 09:13] LABS: HEMATOCRIT 28.2 % (37.0-47.0); HEMOGLOBIN 9.2 G/DL (12.0-16.0); LACTATE DEHYDROGENASE 107 U/L (81-234); MEAN CORPUSCULAR VOLUME 89 FL (80-99); PLATELET COUNT 290 K/UL (150-450); RED BLOOD COUNT 3.18 M/UL (4.20-5.40); RED CELL DISTRIBUTION WIDTH 12.7 % (11.6-14.8)
[2018-06-11 09:50] LABS: % IRON SATURATION 23 % (15-50); IRON 61 ug/dL (50-175); TOTAL IRON BINDING CAPACITY 267 ug/dL (250-450)
--- NOTE | 2018-06-11 11:15 | Pulmonology Progress Note ---
Assessment/Plan Problems: (1) ACS (acute coronary syndrome) (2) ATN (acute tubular necrosis) (3) Decreased activities of daily living (ADL) (4) Diabetes mellitus (5) Neuropathy (6) History of hypertension Assessment/Plan cardiology note appreciated symptomatic treatment renal w/u NSAID and steroids for possible gouty arthritis, ( doubt) med/surg Subjective ROS Limited/Unobtainable: No Interval Events: feeling better, less pain in left ankle Constitutional: Reports: no symptoms Allergies: Coded Allergies: No Known Allergies (Unverified , 09/17/12) Objective Last 24 Hour Vital Signs Date Time Temp Pulse Resp B/P (MAP) Pulse Ox O2 Delivery O2 Flow Rate FiO2 06/11/18 09:04 80 151/69 06/11/18 09:04 80 151/69 06/11/18 09:00 Room Air 06/11/18 08:00 96.8 80 20 151/69 (96) 96 06/11/18 08:00 80 06/11/18 04:00 97.5 74 16 156/79 (104) 96 06/11/18 04:00 76 06/11/18 00:00 69 06/11/18 00:00 97.0 74 18 119/54 (75) 97 06/10/18 21:00 Room Air 06/10/18 20:36 76 141/75 06/10/18 20:00 76 06/10/18 20:00 97.9 76 18 141/75 (97) 94 06/10/18 16:16 60 06/10/18 16:00 98.1 62 18 130/60 (83) 96 06/10/18 12:00 98.5 63 18 138/56 (83) 99 06/10/18 11:33 62 Intake and Output 06/10/18 06/11/18 19:00 07:00 Intake Total 360 ml 240 ml Output Total 350 ml Balance 10 ml 240 ml Intake Oral 360 ml 240 ml Output Urine Total 350 ml # Voids 1 1 # Bowel Movements 2 General Appearance: WD/WN HEENT: normocephalic, atraumatic Respiratory/Chest: chest wall non-tender, lungs clear Breasts: no masses Cardiovascular: normal peripheral pulses, normal rate Abdomen: normal bowel sounds, soft, non tender Genitourinary: normal external genitalia Extremities: no clubbing Skin: no lesions 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 Laboratory Tests 06/10/18 14:10: Stool Occult Blood Negative 06/11/18 06:53: White Blood Count 17.0#H, Red Blood Count 3.18L, Hemoglobin 9.2L, Hematocrit 28.2L, Mean Corpuscular Volume 89, Mean Corpuscular Hemoglobin 28.9, Mean Corpuscular Hemoglobin Concent 32.7, Red Cell Distribution Width 12.7, Platelet Count 290, Mean Platelet Volume 5.8L, Neutrophils (%) (Auto) , Lymphocytes (%) ( Auto) , Monocytes (%) (Auto) , Eosinophils (%) (Auto) , Basophils (%) (Auto) , Differential Total Cells Counted 100, Neutrophils % (Manual) 86H, Lymphocytes % (Manual) 13L, Monocytes % (Manual) 1, Eosinophils % (Manual) 0, Basophils % ( Manual) 0, Band Neutrophils 0, Platelet Estimate Adequate, Platelet Morphology Normal, Hypochromasia 2+, Erythrocyte Sedimentation Rate 114H, Reticulocyte Count 1.2, Prothrombin Time 10.3, Prothromb Time International Ratio 1.0, Activated Partial Thromboplast Time 28, Iron Level 61, Total Iron Binding Capacity 267, Percent Iron Saturation 23, Unsaturated Iron Binding 206, Lactate Dehydrogenase 107, Troponin I 0.000, Carcinoembryonic Antigen [Pending], Vitamin B12 Level < 80L, Folate 11.9 Current Medications Medications (Trade) Dose Ordered Sig/Nick Route PRN Reason Start Time Stop Time Status Last Admin Dose Admin Acetaminophen (Tylenol) 500 mg Q4H PRN ORAL Mild Pain/Temp > 100.5 06/09/18 21:30 07/09/18 21:29 Amlodipine Besylate (Norvasc) 5 mg DAILY ORAL 06/10/18 09:00 07/10/18 08:59 06/11/18 09:04 Aspirin (ASA) 81 mg DAILY ORAL 06/10/18 09:00 07/10/18 08:59 06/11/18 09:03 Atorvastatin Calcium (Lipitor) 40 mg BEDTIME ORAL 06/09/18 22:30 07/09/18 22:29 06/10/18 20:35 Carvedilol (Coreg) 12.5 mg EVERY 12 HOURS ORAL 06/09/18 22:30 07/09/18 22:29 06/11/18 09:04 Colchicine (Colchicine) 0.6 mg Q8HR PRN ORAL For Pain 06/09/18 21:30 07/09/18 21:29 06/11/18 09:10 Dextrose (Dextrose 50%) 25 ml Q30M PRN IV Hypoglycemia 06/09/18 21:45 07/09/18 21:44 Dextrose (Dextrose 50%) 50 ml Q30M PRN IV Hypoglycemia 06/09/18 21:45 07/09/18 21:44 Diphenhydramine HCl (Benadryl) 25 mg BEDTIME ORAL 06/10/18 21:00 07/10/18 20:59 06/10/18 20:35 Docusate Sodium (Colace) 100 mg QHS ORAL 06/09/18 22:30 07/09/18 22:29 06/10/18 20:35 Escitalopram Oxalate (Lexapro) 10 mg DAILY ORAL 06/10/18 12:00 07/10/18 11:59 06/11/18 09:04 Furosemide (Lasix) 20 mg DAILY ORAL 06/10/18 09:00 07/10/18 08:59 06/11/18 09:03 Heparin Sodium (Porcine) (Heparin 5000 units/ml) 5,000 units EVERY 8 HOURS SUBQ 06/09/18 22:00 07/09/18 21:59 06/11/18 05:58 Indomethacin (Indocin) 25 mg THREE TIMES A DAY ORAL 06/10/18 13:00 07/10/18 12:59 06/11/18 09:04 Insulin Aspart (NovoLOG) BEFORE MEALS AND HS SUBQ 06/10/18 06:30 07/10/18 06:29 06/11/18 06:19 Metformin HCl (Glucophage) 500 mg TIAC ORAL 06/10/18 06:30 07/10/18 06:29 06/11/18 06:18 Ondansetron HCl (Zofran) 4 mg Q4HR PRN IVP Nausea & Vomiting 06/09/18 21:30 07/09/18 21:29 Pantoprazole (Protonix) 40 mg DAILY ORAL 06/10/18 09:00 07/10/18 08:59 06/11/18 09:03 Spironolactone (Aldactone) 50 mg DAILY ORAL 06/10/18 09:00 07/10/18 08:59 06/11/18 09:03 Calli Lux MD Jun 11, 2018 11:15
[2018-06-11 12:00] VITALS: BP 123/61
[2018-06-11 16:00] VITALS: BP 142/69
--- NOTE | 2018-06-11 17:16 | Consultation ---
History of Present Illness General Date patient seen: Jun 11, 2018 Present Illness HPI 72 y/o F with hx of Breast CA s/p lumpectomy, gout, GERD, Obesity, CHF, HTN, CVA , DM2, HLD, s/p hysterectomy ~30 yras ago presents to ED on 06/10 with b/l feet pain, low energy, depression. Upon admission found to have SVETLANA Denied PND, orthopnea, palpitations, CP Allergies: Coded Allergies: No Known Allergies (Unverified , 09/17/12) Medication History Scheduled Amlodipine Besylate* (Amlodipine Besylate*), 5 MG ORAL DAILY, (Reported) Aspirin (Aspirin), 81 MG PO DAILY, (Reported) Carvedilol (Coreg), 12.5 MG ORAL EVERY 12 HOURS, (Reported) Docusate Sodium* (Colace*), 100 MG ORAL QHS, (Reported) Furosemide (Furosemide), 20 MG ORAL DAILY, (Reported) Metformin Hcl* (Metformin Hcl*), 500 MG ORAL THREE TIMES A DAY, (Reported) Pantoprazole Sodium (Protonix), 40 MG ORAL DAILY, (Reported) Rosuvastatin Calcium (Crestor), 10 MG ORAL DAILY, (Reported) Spironolactone* (Spironolactone*), 50 MG ORAL DAILY, (Reported) Discontinued Medications Amlodipine Besylate (Norvasc), 10 MG PO DAILY, (Reported) Discontinued Reason: Medication dose changed Hydralazine HCl (Hydralazine HCl), 50 MG ORAL TID, (Reported) Discontinued Reason: discontinued med Olmesartan/Hydrochlorothiazide 40-25MG (Benicar Hct 40-25 Mg Tablet), 1 TAB ORAL DAILY, (Reported) Discontinued Reason: discontinued med Patient History Healthcare decision maker N Resuscitation status Full Code Advanced Directive on File No Patient History Narrative Pmhx: as above Shx: She never smoked. No alcoholic beverages. She lives at a facility. She has a daughter who lives in [place] that checks on her intermittently. Fhx: non contributory Review of Systems All Other Systems: negative except mentioned in HPI Physical Exam Physical Exam Narrative GENERAL: Shows to be obese elderly female, in no apparent respiratory distress. NECK: Supple. No jugular venous distention. LUNGS: Clear to auscultation and percussion. CARDIAC: S1 is normal. S2 is normal. Regular rate and rhythm. No heaves, thrills, or gallops noted. ABDOMEN: Obese. Positive bowel sounds. Nontender. EXTREMITIES: There is no edema, clubbing, or cyanosis. NEUROLOGICAL: She is awake, alert, responsive, and in no apparent respiratory distress. Last 24 Hour Vital Signs Date Time Temp Pulse Resp B/P (MAP) Pulse Ox O2 Delivery O2 Flow Rate FiO2 06/11/18 12:00 97.5 79 20 123/61 (81) 94 06/11/18 12:00 81 06/11/18 09:04 80 151/69 06/11/18 09:04 80 151/69 06/11/18 09:00 Room Air 06/11/18 08:00 96.8 80 20 151/69 (96) 96 06/11/18 08:00 80 06/11/18 04:00 97.5 74 16 156/79 (104) 96 06/11/18 04:00 76 06/11/18 00:00 69 06/11/18 00:00 97.0 74 18 119/54 (75) 97 06/10/18 21:00 Room Air 06/10/18 20:36 76 141/75 06/10/18 20:00 76 06/10/18 20:00 97.9 76 18 141/75 (97) 94 Intake and Output 06/10/18 06/11/18 19:00 07:00 Intake Total 360 ml 240 ml Output Total 350 ml Balance 10 ml 240 ml Intake Oral 360 ml 240 ml Output Urine Total 350 ml # Voids 1 1 # Bowel Movements 2 Laboratory Tests Test 06/11/18 06:53 White Blood Count 17.0 K/UL (4.8-10.8) #H Red Blood Count 3.18 M/UL (4.20-5.40) L Hemoglobin 9.2 G/DL (12.0-16.0) L Hematocrit 28.2 % (37.0-47.0) L Mean Corpuscular Volume 89 FL (80-99) Mean Corpuscular Hemoglobin 28.9 PG (27.0-31.0) Mean Corpuscular Hemoglobin Concent 32.7 G/DL (32.0-36.0) Red Cell Distribution Width 12.7 % (11.6-14.8) Platelet Count 290 K/UL (150-450) Mean Platelet Volume 5.8 FL (6.5-10.1) L Neutrophils (%) (Auto) % (45.0-75.0) Lymphocytes (%) (Auto) % (20.0-45.0) Monocytes (%) (Auto) % (1.0-10.0) Eosinophils (%) (Auto) % (0.0-3.0) Basophils (%) (Auto) % (0.0-2.0) Differential Total Cells Counted 100 Neutrophils % (Manual) 86 % (45-75) H Lymphocytes % (Manual) 13 % (20-45) L Monocytes % (Manual) 1 % (1-10) Eosinophils % (Manual) 0 % (0-3) Basophils % (Manual) 0 % (0-2) Band Neutrophils 0 % (0-8) Platelet Estimate Adequate Platelet Morphology Normal Hypochromasia 2+ Erythrocyte Sedimentation Rate 114 MM/HR (0-30) H Reticulocyte Count 1.2 % (0.0-2.0) Prothrombin Time 10.3 SEC (9.30-11.50) Prothromb Time International Ratio 1.0 (0.9-1.1) Activated Partial Thromboplast Time 28 SEC (23-33) Iron Level 61 ug/dL (50-175) Total Iron Binding Capacity 267 ug/dL (250-450) Percent Iron Saturation 23 % (15-50) Unsaturated Iron Binding 206 ug/dL (112-346) Lactate Dehydrogenase 107 U/L (81-234) Troponin I 0.000 ng/mL (0.000-0.056) Carcinoembryonic Antigen Pending Vitamin B12 Level < 80 PG/ML (193-986) L Folate 11.9 NG/ML (8.6-58.9) Height (Feet): 5 Height (Inches): 6.00 Weight (Pounds): 227 Medications Current Medications Medications (Trade) Dose Ordered Sig/Nick Route PRN Reason Start Time Stop Time Status Last Admin Dose Admin Acetaminophen (Tylenol) 500 mg Q4H PRN ORAL Mild Pain/Temp > 100.5 06/09/18 21:30 07/09/18 21:29 06/11/18 12:31 Amlodipine Besylate (Norvasc) 5 mg DAILY ORAL 06/10/18 09:00 07/10/18 08:59 06/11/18 09:04 Aspirin (ASA) 81 mg DAILY ORAL 06/10/18 09:00 07/10/18 08:59 06/11/18 09:03 Atorvastatin Calcium (Lipitor) 40 mg BEDTIME ORAL 06/09/18 22:30 07/09/18 22:29 06/10/18 20:35 Carvedilol (Coreg) 12.5 mg EVERY 12 HOURS ORAL 06/09/18 22:30 07/09/18 22:29 06/11/18 09:04 Colchicine (Colchicine) 0.6 mg Q8HR PRN ORAL For Pain 06/09/18 21:30 07/09/18 21:29 06/11/18 09:10 Dextrose (Dextrose 50%) 25 ml Q30M PRN IV Hypoglycemia 06/09/18 21:45 07/09/18 21:44 Dextrose (Dextrose 50%) 50 ml Q30M PRN IV Hypoglycemia 06/09/18 21:45 07/09/18 21:44 Diphenhydramine HCl (Benadryl) 25 mg BEDTIME ORAL 06/10/18 21:00 07/10/18 20:59 06/10/18 20:35 Docusate Sodium (Colace) 100 mg QHS ORAL 06/09/18 22:30 07/09/18 22:29 06/10/18 20:35 Escitalopram Oxalate (Lexapro) 10 mg DAILY ORAL 06/10/18 12:00 07/10/18 11:59 06/11/18 09:04 Furosemide (Lasix) 20 mg DAILY ORAL 06/10/18 09:00 07/10/18 08:59 06/11/18 09:03 Heparin Sodium (Porcine) (Heparin 5000 units/ml) 5,000 units EVERY 8 HOURS SUBQ 06/09/18 22:00 07/09/18 21:59 06/11/18 15:01 Indomethacin (Indocin) 25 mg THREE TIMES A DAY ORAL 06/10/18 13:00 07/10/18 12:59 06/11/18 12:28 Insulin Aspart (NovoLOG) BEFORE MEALS AND HS SUBQ 06/10/18 06:30 07/10/18 06:29 06/11/18 12:29 Metformin HCl (Glucophage) 500 mg TIAC ORAL 06/10/18 06:30 07/10/18 06:29 06/11/18 12:28 Ondansetron HCl (Zofran) 4 mg Q4HR PRN IVP Nausea & Vomiting 06/09/18 21:30 07/09/18 21:29 Pantoprazole (Protonix) 40 mg DAILY ORAL 06/10/18 09:00 07/10/18 08:59 06/11/18 09:03 Spironolactone (Aldactone) 50 mg DAILY ORAL 06/10/18 09:00 07/10/18 08:59 06/11/18 09:03 Assessment/Plan Assessment/Plan Abx: None Assessment: B/l feet pain- suspect Gout flare Leukocytosis- likely 2ry to high dose steroid -cdff neg Afebrile SVETLANA Breast CA s/p lumpectomy gout GERD Obesity CHF HTN CVA DM2 HLD s/p hysterectomy ~30 yrs ago Plan: -Continue to monitor off abx -f/u cx -Monitor CBC/CMP, temperatures -aspiration precautions -CBC, CMP am -CXR Thank you for this consultation. Will continue to follow along with you. Discussed with Kathryn Abad M.D. Jun 11, 2018 17:16
--- NOTE | 2018-06-11 19:28 | Internal Med Progress Note ---
Subjective Date of Service: Jun 11, 2018 Physician Name Bk Kellogg Attending Physician Papa French MD Current Medications Medications (Trade) Dose Ordered Sig/Nick Route PRN Reason Start Time Stop Time Status Last Admin Dose Admin Acetaminophen (Tylenol) 500 mg Q4H PRN ORAL Mild Pain/Temp > 100.5 06/09/18 21:30 07/09/18 21:29 06/11/18 12:31 Amlodipine Besylate (Norvasc) 5 mg DAILY ORAL 06/10/18 09:00 07/10/18 08:59 06/11/18 09:04 Aspirin (ASA) 81 mg DAILY ORAL 06/10/18 09:00 07/10/18 08:59 06/11/18 09:03 Atorvastatin Calcium (Lipitor) 40 mg BEDTIME ORAL 06/09/18 22:30 07/09/18 22:29 06/10/18 20:35 Carvedilol (Coreg) 12.5 mg EVERY 12 HOURS ORAL 06/09/18 22:30 07/09/18 22:29 06/11/18 09:04 Colchicine (Colchicine) 0.6 mg Q8HR PRN ORAL For Pain 06/09/18 21:30 07/09/18 21:29 06/11/18 09:10 Dextrose (Dextrose 50%) 25 ml Q30M PRN IV Hypoglycemia 06/09/18 21:45 07/09/18 21:44 Dextrose (Dextrose 50%) 50 ml Q30M PRN IV Hypoglycemia 06/09/18 21:45 07/09/18 21:44 Diphenhydramine HCl (Benadryl) 25 mg BEDTIME ORAL 06/10/18 21:00 07/10/18 20:59 06/10/18 20:35 Docusate Sodium (Colace) 100 mg QHS ORAL 06/09/18 22:30 07/09/18 22:29 06/10/18 20:35 Escitalopram Oxalate (Lexapro) 10 mg DAILY ORAL 06/10/18 12:00 07/10/18 11:59 06/11/18 09:04 Furosemide (Lasix) 20 mg DAILY ORAL 06/10/18 09:00 07/10/18 08:59 06/11/18 09:03 Heparin Sodium (Porcine) (Heparin 5000 units/ml) 5,000 units EVERY 8 HOURS SUBQ 06/09/18 22:00 07/09/18 21:59 06/11/18 15:01 Indomethacin (Indocin) 25 mg THREE TIMES A DAY ORAL 06/10/18 13:00 07/10/18 12:59 06/11/18 17:18 Insulin Aspart (NovoLOG) BEFORE MEALS AND HS SUBQ 06/10/18 06:30 07/10/18 06:29 06/11/18 17:20 Metformin HCl (Glucophage) 500 mg TIAC ORAL 06/10/18 06:30 07/10/18 06:29 06/11/18 17:18 Ondansetron HCl (Zofran) 4 mg Q4HR PRN IVP Nausea & Vomiting 06/09/18 21:30 07/09/18 21:29 Pantoprazole (Protonix) 40 mg DAILY ORAL 06/10/18 09:00 07/10/18 08:59 06/11/18 09:03 Spironolactone (Aldactone) 50 mg DAILY ORAL 06/10/18 09:00 07/10/18 08:59 06/11/18 09:03 Allergies: Coded Allergies: No Known Allergies (Unverified , 09/17/12) ROS Limited/Unobtainable: No Constitutional: Reports: no symptoms HEENT: Reports: no symptoms Cardiovascular: Reports: no symptoms Respiratory: Reports: no symptoms Gastrointestinal/Abdominal: Reports: no symptoms Genitourinary: Reports: no symptoms Neurologic/Psychiatric: Reports: no symptoms Subjective 72 YO F admitted with bilat lower ext pain. Now leukocytosis and acute renal insufficiency. Cover for Int Ambrocio-Dr French Objective Last Vital Signs Date Time Temp Pulse Resp B/P (MAP) Pulse Ox O2 Delivery O2 Flow Rate FiO2 06/11/18 16:00 98.0 75 21 142/69 (93) 96 06/11/18 09:00 Room Air General Appearance: WD/WN, no apparent distress, alert EENT: PERRL/EOMI, normal ENT inspection, TMs normal Neck: non-tender, normal alignment, supple, normal inspection Cardiovascular: normal peripheral pulses, normal rate, regular rhythm, no gallop/murmur, no JVD Respiratory/Chest: chest wall non-tender, lungs clear, normal breath sounds, no respiratory distress, no accessory muscle use Abdomen: normal bowel sounds, non tender, soft, no organomegaly, no mass Extremities: normal range of motion 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, no motor/sensory deficits Skin: normal pigmentation, warm/dry Laboratory Tests Test 06/11/18 06:53 White Blood Count 17.0 K/UL (4.8-10.8) #H Red Blood Count 3.18 M/UL (4.20-5.40) L Hemoglobin 9.2 G/DL (12.0-16.0) L Hematocrit 28.2 % (37.0-47.0) L Mean Corpuscular Volume 89 FL (80-99) Mean Corpuscular Hemoglobin 28.9 PG (27.0-31.0) Mean Corpuscular Hemoglobin Concent 32.7 G/DL (32.0-36.0) Red Cell Distribution Width 12.7 % (11.6-14.8) Platelet Count 290 K/UL (150-450) Mean Platelet Volume 5.8 FL (6.5-10.1) L Neutrophils (%) (Auto) % (45.0-75.0) Lymphocytes (%) (Auto) % (20.0-45.0) Monocytes (%) (Auto) % (1.0-10.0) Eosinophils (%) (Auto) % (0.0-3.0) Basophils (%) (Auto) % (0.0-2.0) Differential Total Cells Counted 100 Neutrophils % (Manual) 86 % (45-75) H Lymphocytes % (Manual) 13 % (20-45) L Monocytes % (Manual) 1 % (1-10) Eosinophils % (Manual) 0 % (0-3) Basophils % (Manual) 0 % (0-2) Band Neutrophils 0 % (0-8) Platelet Estimate Adequate Platelet Morphology Normal Hypochromasia 2+ Erythrocyte Sedimentation Rate 114 MM/HR (0-30) H Reticulocyte Count 1.2 % (0.0-2.0) Prothrombin Time 10.3 SEC (9.30-11.50) Prothromb Time International Ratio 1.0 (0.9-1.1) Activated Partial Thromboplast Time 28 SEC (23-33) Iron Level 61 ug/dL (50-175) Total Iron Binding Capacity 267 ug/dL (250-450) Percent Iron Saturation 23 % (15-50) Unsaturated Iron Binding 206 ug/dL (112-346) Lactate Dehydrogenase 107 U/L (81-234) Troponin I 0.000 ng/mL (0.000-0.056) Carcinoembryonic Antigen Pending Vitamin B12 Level < 80 PG/ML (193-986) L Folate 11.9 NG/ML (8.6-58.9) Microbiology Date/Time Source Procedure Growth Status 06/10/18 14:10 Stool Clostridium difficile Toxin Assay - Final Complete Intake and Output 06/10/18 06/11/18 19:00 07:00 Intake Total 360 ml 240 ml Output Total 350 ml Balance 10 ml 240 ml Intake Oral 360 ml 240 ml Output Urine Total 350 ml # Voids 1 1 # Bowel Movements 2 Assessment/Plan Problem List: (1) Gout Assessment & Plan: Acute attack. Continue indomethacin and solumedrol (2) HTN (hypertension) Assessment & Plan: continue norvasc, aldactone and coreg (3) Renal insufficiency (4) Hypercholesteremia Assessment & Plan: Continue lipitor (5) HX: breast cancer (6) Diabetes mellitus Assessment & Plan: Continue novolog sliding scale. (7) Leukocytosis Assessment & Plan: See ID note Status: not improved Bk Kellogg MD Jun 11, 2018 19:28
[2018-06-11 20:00] VITALS: BP 133/55
[2018-06-11] MEDS: Atorvastatin 20mg tab ORAL SCH (20:33)
[2018-06-11] MEDS: Docusate 100mg cap ORAL SCH (20:33)
[2018-06-12] VITALS: BP 122/61
[2018-06-12 04:00] VITALS: BP 139/73
[2018-06-12] MEDS: metFORMIN 500mg tab ORAL SCH (05:58)
[2018-06-12] MEDS: Heparin 5000 units/ml inj SUBQ SCH ×3 (05:59→22:12)
[2018-06-12] MEDS: NovoLOG Insulin Flexpen SUBQ SCH ×4 (06:00→20:48)
[2018-06-12 07:34] LABS: ALANINE AMINOTRANSFERASE 19 U/L (12-78); ALBUMIN/GLOBULIN RATIO 0.7 (1.0-2.7); ALKALINE PHOSPHATASE 78 U/L (46-116); ANION GAP 10 mmol/L (5-15); ASPARTATE AMINO TRANSFERASE 13 U/L (15-37); BASOPHILS % (AUTO) 0.2 % (0.0-2.0); BILIRUBIN,TOTAL 0.3 MG/DL (0.2-1.0); BLOOD UREA NITROGEN 76 mg/dL (7-18); CALCIUM 8.9 MG/DL (8.5-10.1); CARBON DIOXIDE 25 MMOL/L (21-32); CHLORIDE 101 MMOL/L (98-107); CREATININE 2.6 MG/DL (0.55-1.30); EOSINOPHILS % (AUTO) 0.1 % (0.0-3.0); HEMATOCRIT 25.8 % (37.0-47.0); HEMOGLOBIN 8.5 G/DL (12.0-16.0); LYMPHOCYTES % (AUTO) 15.5 % (20.0-45.0); MEAN CORPUSCULAR VOLUME 88 FL (80-99); MONOCYTES % (AUTO) 7.1 % (1.0-10.0); PLATELET COUNT 283 K/UL (150-450); POTASSIUM 4.6 MMOL/L (3.5-5.1); RED BLOOD COUNT 2.92 M/UL (4.20-5.40); RED CELL DISTRIBUTION WIDTH 12.9 % (11.6-14.8); SODIUM 136 MMOL/L (136-145); WHITE BLOOD COUNT 17.7 K/UL (4.8-10.8)
[2018-06-12 08:00] VITALS: BP 138/73
--- NOTE | 2018-06-12 08:45 | Diagnostic Imaging Report ---
Indication: Cough Technique: One view of the chest Comparison: none Findings: The heart is enlarged. Lungs and pleural spaces are clear. There are surgical clips in the left and axilla Impression: Cardiomegaly. No definite acute process Evidence of prior left axillary node dissection
[2018-06-12] MEDS: Carvedilol 12.5mg tab ORAL SCH ×2 (09:49→20:46)
[2018-06-12] MEDS: Spironolactone 50mg tab ORAL SCH (09:49)
[2018-06-12] MEDS: Aspirin Baby 81mg ORAL SCH (09:50)
[2018-06-12] MEDS: Indomethacin 25mg cap ORAL SCH (09:50)
--- NOTE | 2018-06-12 11:02 | Pulmonology Progress Note ---
Assessment/Plan Problems: (1) ACS (acute coronary syndrome) (2) ATN (acute tubular necrosis) (3) Decreased activities of daily living (ADL) (4) Diabetes mellitus (5) Neuropathy (6) History of hypertension Assessment/Plan cardiology note appreciated symptomatic treatment renal w/u on colchicine Indocin for Gouty arthritis med/surg Subjective ROS Limited/Unobtainable: No Interval Events: still c/o pain in right ankle Constitutional: Reports: no symptoms Respiratory: Reports: no symptoms Allergies: Coded Allergies: No Known Allergies (Unverified , 09/17/12) Objective Last 24 Hour Vital Signs Date Time Temp Pulse Resp B/P (MAP) Pulse Ox O2 Delivery O2 Flow Rate FiO2 06/12/18 09:50 69 138/73 06/12/18 09:49 69 138/73 06/12/18 09:00 Room Air 06/12/18 08:00 97.5 69 21 138/73 (94) 96 06/12/18 04:00 97.4 88 18 139/73 (95) 96 06/12/18 00:00 98.0 81 18 122/61 (81) 97 06/11/18 21:00 Room Air 06/11/18 20:33 72 133/55 06/11/18 20:00 98.4 72 18 133/55 (81) 94 06/11/18 16:00 98.0 75 21 142/69 (93) 96 06/11/18 12:00 97.5 79 20 123/61 (81) 94 06/11/18 12:00 81 Intake and Output 06/11/18 06/12/18 19:00 07:00 Intake Total 860 ml Balance 860 ml Intake Oral 860 ml # Voids 1 Objective General Appearance: WD/WN Lines, tubes and drains: peripheral HEENT: normocephalic Neck: non-tender Respiratory/Chest: chest wall non-tender, lungs clear Cardiovascular/Chest: normal peripheral pulses Abdomen: normal bowel sounds Genitourinary/Rectal: normal genital exam Extremities: normal range of motion, non-pitting Microbiology Date/Time Source Procedure Growth Status 06/10/18 14:10 Stool Clostridium difficile Toxin Assay - Final Complete Laboratory Tests 06/12/18 05:35: White Blood Count 17.7H, Red Blood Count 2.92L, Hemoglobin 8.5L, Hematocrit 25.8L, Mean Corpuscular Volume 88, Mean Corpuscular Hemoglobin 29.2, Mean Corpuscular Hemoglobin Concent 33.1, Red Cell Distribution Width 12.9, Platelet Count 283, Mean Platelet Volume 6.7, Neutrophils (%) (Auto) 77.0H, Lymphocytes ( %) (Auto) 15.5L, Monocytes (%) (Auto) 7.1, Eosinophils (%) (Auto) 0.1, Basophils (%) (Auto) 0.2, Erythrocyte Sedimentation Rate 108H, Sodium Level 136 , Potassium Level 4.6, Chloride Level 101, Carbon Dioxide Level 25, Anion Gap 10 , Blood Urea Nitrogen 76H, Creatinine 2.6H, Estimat Glomerular Filtration Rate , Glucose Level 151H, Calcium Level 8.9, Phosphorus Level 4.0, Magnesium Level 2.1, Total Bilirubin 0.3, Aspartate Amino Transf (AST/SGOT) 13L, Alanine Aminotransferase (ALT/SGPT) 19, Alkaline Phosphatase 78, C-Reactive Protein, Quantitative 1.3H, Total Protein 7.5, Albumin 3.0L, Globulin 4.5, Albumin/ Globulin Ratio 0.7L Current Medications Medications (Trade) Dose Ordered Sig/Nick Route PRN Reason Start Time Stop Time Status Last Admin Dose Admin Acetaminophen (Tylenol) 500 mg Q4H PRN ORAL Mild Pain/Temp > 100.5 06/09/18 21:30 07/09/18 21:29 06/11/18 12:31 Amlodipine Besylate (Norvasc) 5 mg DAILY ORAL 06/10/18 09:00 07/10/18 08:59 06/12/18 09:50 Aspirin (ASA) 81 mg DAILY ORAL 06/10/18 09:00 07/10/18 08:59 06/12/18 09:50 Atorvastatin Calcium (Lipitor) 40 mg BEDTIME ORAL 06/09/18 22:30 07/09/18 22:29 06/11/18 20:33 Carvedilol (Coreg) 12.5 mg EVERY 12 HOURS ORAL 06/09/18 22:30 07/09/18 22:29 06/12/18 09:49 Colchicine (Colchicine) 0.6 mg Q8HR PRN ORAL For Pain 06/09/18 21:30 07/09/18 21:29 06/11/18 20:33 Dextrose (Dextrose 50%) 25 ml Q30M PRN IV Hypoglycemia 06/09/18 21:45 07/09/18 21:44 Dextrose (Dextrose 50%) 50 ml Q30M PRN IV Hypoglycemia 06/09/18 21:45 07/09/18 21:44 Diphenhydramine HCl (Benadryl) 25 mg BEDTIME ORAL 06/10/18 21:00 07/10/18 20:59 06/11/18 20:34 Docusate Sodium (Colace) 100 mg QHS ORAL 06/09/18 22:30 07/09/18 22:29 06/11/18 20:33 Escitalopram Oxalate (Lexapro) 10 mg DAILY ORAL 06/10/18 12:00 07/10/18 11:59 06/12/18 09:49 Furosemide (Lasix) 20 mg DAILY ORAL 06/10/18 09:00 07/10/18 08:59 06/12/18 09:49 Heparin Sodium (Porcine) (Heparin 5000 units/ml) 5,000 units EVERY 8 HOURS SUBQ 06/09/18 22:00 07/09/18 21:59 06/12/18 05:59 Indomethacin (Indocin) 25 mg THREE TIMES A DAY ORAL 06/10/18 13:00 07/10/18 12:59 06/12/18 09:50 Insulin Aspart (NovoLOG) BEFORE MEALS AND HS SUBQ 06/10/18 06:30 07/10/18 06:29 06/12/18 06:00 Metformin HCl (Glucophage) 500 mg TIAC ORAL 06/10/18 06:30 07/10/18 06:29 06/12/18 05:58 Ondansetron HCl (Zofran) 4 mg Q4HR PRN IVP Nausea & Vomiting 06/09/18 21:30 07/09/18 21:29 Pantoprazole (Protonix) 40 mg DAILY ORAL 06/10/18 09:00 07/10/18 08:59 06/12/18 09:49 Spironolactone (Aldactone) 50 mg DAILY ORAL 06/10/18 09:00 07/10/18 08:59 06/12/18 09:49 Temazepam (Restoril) 15 mg HSPRN PRN ORAL Insomnia 06/11/18 22:30 06/18/18 22:29 Calli Lux MD Jun 12, 2018 11:02
--- NOTE | 2018-06-12 11:03 | Infectious Diseases Prog Note ---
Assessment/Plan Assessment/Plan Abx: None Assessment: B/l feet pain- suspect Gout flare Leukocytosis- likely 2ry to s/p high dose steroid -cdff neg -CXR: Cardiomegaly. No definite acute process. Evidence of prior left axillary node dissection Afebrile SVETLANA, worsening Breast CA s/p lumpectomy gout GERD Obesity CHF HTN CVA DM2 HLD s/p hysterectomy ~30 yrs ago Plan: -Continue to monitor off abx -f/u cx -Monitor CBC/CMP, temperatures -aspiration precautions Thank you for this consultation. Will continue to follow along with you. Discussed with RN Subjective Allergies: Coded Allergies: No Known Allergies (Unverified , 09/17/12) Subjective afebrile wbc stable ast 17 Cr increased Objective Vital Signs Last 24 Hour Vital Signs Date Time Temp Pulse Resp B/P (MAP) Pulse Ox O2 Delivery O2 Flow Rate FiO2 06/12/18 09:50 69 138/73 06/12/18 09:49 69 138/73 06/12/18 09:00 Room Air 06/12/18 08:00 97.5 69 21 138/73 (94) 96 06/12/18 04:00 97.4 88 18 139/73 (95) 96 06/12/18 00:00 98.0 81 18 122/61 (81) 97 06/11/18 21:00 Room Air 06/11/18 20:33 72 133/55 06/11/18 20:00 98.4 72 18 133/55 (81) 94 06/11/18 16:00 98.0 75 21 142/69 (93) 96 06/11/18 12:00 97.5 79 20 123/61 (81) 94 06/11/18 12:00 81 Height (Feet): 5 Height (Inches): 6.00 Weight (Pounds): 227 Objective GENERAL: Shows to be obese elderly female, in no apparent respiratory distress. NECK: Supple. No jugular venous distention. LUNGS: Clear to auscultation and percussion. CARDIAC: S1 is normal. S2 is normal. Regular rate and rhythm. No heaves, thrills, or gallops noted. ABDOMEN: Obese. Positive bowel sounds. Nontender. EXTREMITIES: There is no edema, clubbing, or cyanosis.b/l 1st toe swelling L>R and TTP, mild rednes on L 1st toe NEUROLOGICAL: She is awake, alert, responsive, and in no apparent respiratory distress. Microbiology Date/Time Source Procedure Growth Status 06/10/18 14:10 Stool Clostridium difficile Toxin Assay - Final Complete Laboratory Tests Test 06/12/18 05:35 White Blood Count 17.7 K/UL (4.8-10.8) H Red Blood Count 2.92 M/UL (4.20-5.40) L Hemoglobin 8.5 G/DL (12.0-16.0) L Hematocrit 25.8 % (37.0-47.0) L Mean Corpuscular Volume 88 FL (80-99) Mean Corpuscular Hemoglobin 29.2 PG (27.0-31.0) Mean Corpuscular Hemoglobin Concent 33.1 G/DL (32.0-36.0) Red Cell Distribution Width 12.9 % (11.6-14.8) Platelet Count 283 K/UL (150-450) Mean Platelet Volume 6.7 FL (6.5-10.1) Neutrophils (%) (Auto) 77.0 % (45.0-75.0) H Lymphocytes (%) (Auto) 15.5 % (20.0-45.0) L Monocytes (%) (Auto) 7.1 % (1.0-10.0) Eosinophils (%) (Auto) 0.1 % (0.0-3.0) Basophils (%) (Auto) 0.2 % (0.0-2.0) Erythrocyte Sedimentation Rate 108 MM/HR (0-30) H Sodium Level 136 MMOL/L (136-145) Potassium Level 4.6 MMOL/L (3.5-5.1) Chloride Level 101 MMOL/L (98-107) Carbon Dioxide Level 25 MMOL/L (21-32) Anion Gap 10 mmol/L (5-15) Blood Urea Nitrogen 76 mg/dL (7-18) H Creatinine 2.6 MG/DL (0.55-1.30) H Estimat Glomerular Filtration Rate mL/min (>60) Glucose Level 151 MG/DL (74-106) H Calcium Level 8.9 MG/DL (8.5-10.1) Phosphorus Level 4.0 MG/DL (2.5-4.9) Magnesium Level 2.1 MG/DL (1.8-2.4) Total Bilirubin 0.3 MG/DL (0.2-1.0) Aspartate Amino Transf (AST/SGOT) 13 U/L (15-37) L Alanine Aminotransferase (ALT/SGPT) 19 U/L (12-78) Alkaline Phosphatase 78 U/L (46-116) C-Reactive Protein, Quantitative 1.3 mg/dL (0.00-0.90) H Total Protein 7.5 G/DL (6.4-8.2) Albumin 3.0 G/DL (3.4-5.0) L Globulin 4.5 g/dL Albumin/Globulin Ratio 0.7 (1.0-2.7) L Current Medications Medications (Trade) Dose Ordered Sig/Nick Route PRN Reason Start Time Stop Time Status Last Admin Dose Admin Acetaminophen (Tylenol) 500 mg Q4H PRN ORAL Mild Pain/Temp > 100.5 06/09/18 21:30 07/09/18 21:29 06/11/18 12:31 Amlodipine Besylate (Norvasc) 5 mg DAILY ORAL 06/10/18 09:00 07/10/18 08:59 06/12/18 09:50 Aspirin (ASA) 81 mg DAILY ORAL 06/10/18 09:00 07/10/18 08:59 06/12/18 09:50 Atorvastatin Calcium (Lipitor) 40 mg BEDTIME ORAL 06/09/18 22:30 07/09/18 22:29 06/11/18 20:33 Carvedilol (Coreg) 12.5 mg EVERY 12 HOURS ORAL 06/09/18 22:30 07/09/18 22:29 06/12/18 09:49 Colchicine (Colchicine) 0.6 mg Q8HR PRN ORAL For Pain 06/09/18 21:30 07/09/18 21:29 06/11/18 20:33 Dextrose (Dextrose 50%) 25 ml Q30M PRN IV Hypoglycemia 06/09/18 21:45 07/09/18 21:44 Dextrose (Dextrose 50%) 50 ml Q30M PRN IV Hypoglycemia 06/09/18 21:45 07/09/18 21:44 Diphenhydramine HCl (Benadryl) 25 mg BEDTIME ORAL 06/10/18 21:00 07/10/18 20:59 06/11/18 20:34 Docusate Sodium (Colace) 100 mg QHS ORAL 06/09/18 22:30 07/09/18 22:29 06/11/18 20:33 Escitalopram Oxalate (Lexapro) 10 mg DAILY ORAL 06/10/18 12:00 07/10/18 11:59 06/12/18 09:49 Furosemide (Lasix) 20 mg DAILY ORAL 06/10/18 09:00 07/10/18 08:59 06/12/18 09:49 Heparin Sodium (Porcine) (Heparin 5000 units/ml) 5,000 units EVERY 8 HOURS SUBQ 06/09/18 22:00 07/09/18 21:59 06/12/18 05:59 Indomethacin (Indocin) 25 mg THREE TIMES A DAY ORAL 06/10/18 13:00 07/10/18 12:59 06/12/18 09:50 Insulin Aspart (NovoLOG) BEFORE MEALS AND HS SUBQ 06/10/18 06:30 07/10/18 06:29 06/12/18 06:00 Metformin HCl (Glucophage) 500 mg TIAC ORAL 06/10/18 06:30 07/10/18 06:29 06/12/18 05:58 Ondansetron HCl (Zofran) 4 mg Q4HR PRN IVP Nausea & Vomiting 06/09/18 21:30 07/09/18 21:29 Pantoprazole (Protonix) 40 mg DAILY ORAL 06/10/18 09:00 07/10/18 08:59 06/12/18 09:49 Spironolactone (Aldactone) 50 mg DAILY ORAL 06/10/18 09:00 07/10/18 08:59 06/12/18 09:49 Temazepam (Restoril) 15 mg HSPRN PRN ORAL Insomnia 06/11/18 22:30 06/18/18 22:29 Kathryn Hernandez M.D. Jun 12, 2018 11:03
--- NOTE | 2018-06-12 11:51 | Consultation ---
Consult Note Consult Note ask to eval for rising creatinine 72 year old female with hx of DM, HTN, CHF ( based on meds that she takes), poor historian was taken by her daughter to [facility] with cc of increased pain in bottom of feet and inability to care for herself. Pt was found to have renal failure and transferred to [facility] for further management. Allergies: Coded Allergies: No Known Allergies (Unverified , 09/17/12) examined- data reviewed discussed with weight analyst/Plan Acute Renal Failure DM HTN Neuropathy Obesity Breast Ca s/p Lumpectomy s/p Hysterectomy GERD Gout Ej Fx 60% Anemia Plan DC Indomethacin Adjust BP meds Abraham Hold Diuretics urine studies Anemia rodriguez Add allopurinol Monitor renal parameters Avoid Nephrotoxics Adithya Valladares MD Jun 12, 2018 11:51
[2018-06-12 12:00] VITALS: BP 155/72
--- NOTE | 2018-06-12 12:22 | General Progress Note ---
Assessment/Plan Problem List: (1) Major depression, recurrent ICD Codes: F33.9 - Major depressive disorder, recurrent, unspecified SNOMED: 17870607 (2) Anxiety disorder ICD Codes: F41.9 - Anxiety disorder, unspecified SNOMED: 618753728 Status: stable, progressing Assessment/Plan Lexapro 10mg qam Benadryl 25mg qhs provided ro/st Subjective Neurologic/Psychiatric: Reports: anxiety, depressed Allergies: Coded Allergies: No Known Allergies (Unverified , 09/17/12) Objective Last 24 Hour Vital Signs Date Time Temp Pulse Resp B/P (MAP) Pulse Ox O2 Delivery O2 Flow Rate FiO2 06/12/18 09:50 69 138/73 06/12/18 09:49 69 138/73 06/12/18 09:00 Room Air 06/12/18 08:00 97.5 69 21 138/73 (94) 96 06/12/18 04:00 97.4 88 18 139/73 (95) 96 06/12/18 00:00 98.0 81 18 122/61 (81) 97 06/11/18 21:00 Room Air 06/11/18 20:33 72 133/55 06/11/18 20:00 98.4 72 18 133/55 (81) 94 06/11/18 16:00 98.0 75 21 142/69 (93) 96 Intake and Output 06/11/18 06/12/18 19:00 07:00 Intake Total 860 ml Balance 860 ml Intake Oral 860 ml # Voids 1 Laboratory Tests 06/12/18 05:35: White Blood Count 17.7H, Red Blood Count 2.92L, Hemoglobin 8.5L, Hematocrit 25.8L, Mean Corpuscular Volume 88, Mean Corpuscular Hemoglobin 29.2, Mean Corpuscular Hemoglobin Concent 33.1, Red Cell Distribution Width 12.9, Platelet Count 283, Mean Platelet Volume 6.7, Neutrophils (%) (Auto) 77.0H, Lymphocytes ( %) (Auto) 15.5L, Monocytes (%) (Auto) 7.1, Eosinophils (%) (Auto) 0.1, Basophils (%) (Auto) 0.2, Erythrocyte Sedimentation Rate 108H, Sodium Level 136 , Potassium Level 4.6, Chloride Level 101, Carbon Dioxide Level 25, Anion Gap 10 , Blood Urea Nitrogen 76H, Creatinine 2.6H, Estimat Glomerular Filtration Rate , Glucose Level 151H, Uric Acid [Pending], Calcium Level 8.9, Phosphorus Level 4.0, Magnesium Level 2.1, Iron Level [Pending], Unsaturated Iron Binding [ Pending], Ferritin [Pending], Total Bilirubin 0.3, Aspartate Amino Transf (AST/ SGOT) 13L, Alanine Aminotransferase (ALT/SGPT) 19, Alkaline Phosphatase 78, C- Reactive Protein, Quantitative 1.3H, Total Protein 7.5, Albumin 3.0L, Globulin 4.5, Albumin/Globulin Ratio 0.7L, Vitamin B12 Level [Pending], Folate [Pending] Height (Feet): 5 Height (Inches): 6.00 Weight (Pounds): 227 General Appearance: no apparent distress, alert Geovanna Murguia MD Jun 12, 2018 12:22
[2018-06-12 12:45] LABS: APPEARANCE,URINE CLEAR; BILIRUBIN, URINE NEGATIVE (NEGATIVE); COLOR,URINE PALE YELLOW; GLUCOSE, URINE (UA) NEGATIVE (NEGATIVE); KETONES,URINE NEGATIVE (NEGATIVE); LEUKOCYTE ESTERASE ,URINE NEGATIVE (NEGATIVE); NITRITE,URINE NEGATIVE (NEGATIVE); PH,URINE 5 (4.5-8.0); PROTEIN,URINE NEGATIVE (NEGATIVE); UROBILINOGEN,URINE NORMAL MG/DL (0.0-1.0)
[2018-06-12] MEDS: Docusate 100mg cap ORAL SCH ×2 (13:05→17:24)
[2018-06-12 13:09] LABS: % IRON SATURATION 33 % (15-50); FERRITIN 97 NG/ML (8-388); IRON 81 ug/dL (50-175); TOTAL IRON BINDING CAPACITY 244 ug/dL (250-450)
[2018-06-12] MEDS ORDERED: Vitamin B12 1000mcg/ml Inj SUBQ SCH (13:30)
--- NOTE | 2018-06-12 14:56 | Cardiology Report ---
APPROVED REPORT EKG Measurement Heart [id number] Sinus rhythm with 1st degree AV block Moderate voltage criteria for LVH, may be normal variant Borderline ECG
[2018-06-12 16:00] VITALS: BP 142/73
[2018-06-12 20:00] VITALS: BP 130/61
[2018-06-12] MEDS: Atorvastatin 20mg tab ORAL SCH (20:46)
--- NOTE | 2018-06-12 21:36 | Internal Med Progress Note ---
Subjective Physician Name Papa French Attending Physician Papa French MD Current Medications Medications (Trade) Dose Ordered Sig/Nick Route PRN Reason Start Time Stop Time Status Last Admin Dose Admin Acetaminophen (Tylenol) 500 mg Q4H PRN ORAL Mild Pain/Temp > 100.5 06/09/18 21:30 07/09/18 21:29 06/11/18 12:31 Allopurinol (Allopurinol) 300 mg DAILY ORAL 06/13/18 09:00 07/13/18 08:59 Amlodipine Besylate (Norvasc) 5 mg DAILY ORAL 06/10/18 09:00 07/10/18 08:59 06/12/18 09:50 Aspirin (ASA) 81 mg DAILY ORAL 06/10/18 09:00 07/10/18 08:59 06/12/18 09:50 Atorvastatin Calcium (Lipitor) 40 mg BEDTIME ORAL 06/09/18 22:30 07/09/18 22:29 06/12/18 20:46 Carvedilol (Coreg) 12.5 mg EVERY 12 HOURS ORAL 06/09/18 22:30 07/09/18 22:29 06/12/18 20:46 Colchicine (Colchicine) 0.6 mg Q8HR PRN ORAL For Pain 06/09/18 21:30 07/09/18 21:29 06/12/18 20:46 Cyanocobalamin (Vitamin B12) 1,000 mcg DAILY SUBQ 06/12/18 13:30 06/14/18 09:01 06/12/18 13:20 Dextrose (Dextrose 50%) 25 ml Q30M PRN IV Hypoglycemia 06/09/18 21:45 07/09/18 21:44 Dextrose (Dextrose 50%) 50 ml Q30M PRN IV Hypoglycemia 06/09/18 21:45 07/09/18 21:44 Diphenhydramine HCl (Benadryl) 25 mg BEDTIME ORAL 06/10/18 21:00 07/10/18 20:59 06/12/18 20:47 Docusate Sodium (Colace) 100 mg TID ORAL 06/12/18 13:00 07/09/18 22:29 06/12/18 17:24 Escitalopram Oxalate (Lexapro) 10 mg DAILY ORAL 06/10/18 12:00 1/10/19 11:59 06/12/18 09:49 Heparin Sodium (Porcine) (Heparin 5000 units/ml) 5,000 units EVERY 8 HOURS SUBQ 06/09/18 22:00 07/09/18 21:59 06/12/18 13:08 Insulin Aspart (NovoLOG) BEFORE MEALS AND HS SUBQ 06/10/18 06:30 07/10/18 06:29 06/12/18 20:48 Ondansetron HCl (Zofran) 4 mg Q4HR PRN IVP Nausea & Vomiting 06/09/18 21:30 07/09/18 21:29 Pantoprazole (Protonix) 40 mg DAILY ORAL 06/10/18 09:00 07/10/18 08:59 06/12/18 09:49 Spironolactone (Aldactone) 50 mg DAILY ORAL 06/10/18 09:00 07/10/18 08:59 06/12/18 09:49 Temazepam (Restoril) 15 mg HSPRN PRN ORAL Insomnia 06/11/18 22:30 06/18/18 22:29 06/12/18 20:47 Allergies: Coded Allergies: No Known Allergies (Unverified , 09/17/12) Subjective awake, responsive, NAD Objective Last Vital Signs Date Time Temp Pulse Resp B/P (MAP) Pulse Ox O2 Delivery O2 Flow Rate FiO2 06/12/18 20:46 66 130/61 06/12/18 20:00 98.6 18 97 06/12/18 09:00 Room Air Laboratory Tests Test 06/12/18 05:35 06/12/18 12:21 White Blood Count 17.7 K/UL (4.8-10.8) H Red Blood Count 2.92 M/UL (4.20-5.40) L Hemoglobin 8.5 G/DL (12.0-16.0) L Hematocrit 25.8 % (37.0-47.0) L Mean Corpuscular Volume 88 FL (80-99) Mean Corpuscular Hemoglobin 29.2 PG (27.0-31.0) Mean Corpuscular Hemoglobin Concent 33.1 G/DL (32.0-36.0) Red Cell Distribution Width 12.9 % (11.6-14.8) Platelet Count 283 K/UL (150-450) Mean Platelet Volume 6.7 FL (6.5-10.1) Neutrophils (%) (Auto) 77.0 % (45.0-75.0) H Lymphocytes (%) (Auto) 15.5 % (20.0-45.0) L Monocytes (%) (Auto) 7.1 % (1.0-10.0) Eosinophils (%) (Auto) 0.1 % (0.0-3.0) Basophils (%) (Auto) 0.2 % (0.0-2.0) Erythrocyte Sedimentation Rate 108 MM/HR (0-30) H Sodium Level 136 MMOL/L (136-145) Potassium Level 4.6 MMOL/L (3.5-5.1) Chloride Level 101 MMOL/L (98-107) Carbon Dioxide Level 25 MMOL/L (21-32) Anion Gap 10 mmol/L (5-15) Blood Urea Nitrogen 76 mg/dL (7-18) H Creatinine 2.6 MG/DL (0.55-1.30) H Estimat Glomerular Filtration Rate mL/min (>60) Glucose Level 151 MG/DL (74-106) H Uric Acid 12.0 MG/DL (2.6-7.2) H Calcium Level 8.9 MG/DL (8.5-10.1) Phosphorus Level 4.0 MG/DL (2.5-4.9) Magnesium Level 2.1 MG/DL (1.8-2.4) Iron Level 81 ug/dL (50-175) Total Iron Binding Capacity 244 ug/dL (250-450) L Percent Iron Saturation 33 % (15-50) Unsaturated Iron Binding 163 ug/dL (112-346) Ferritin 97 NG/ML (8-388) Total Bilirubin 0.3 MG/DL (0.2-1.0) Aspartate Amino Transf (AST/SGOT) 13 U/L (15-37) L Alanine Aminotransferase (ALT/SGPT) 19 U/L (12-78) Alkaline Phosphatase 78 U/L (46-116) C-Reactive Protein, Quantitative 1.3 mg/dL (0.00-0.90) H Total Protein 7.5 G/DL (6.4-8.2) Albumin 3.0 G/DL (3.4-5.0) L Globulin 4.5 g/dL Albumin/Globulin Ratio 0.7 (1.0-2.7) L Vitamin B12 Level 94 PG/ML (193-986) L Folate 8.2 NG/ML (8.6-58.9) L Urine Color Pale yellow Urine Appearance Clear Urine pH 5 (4.5-8.0) Urine Specific [place] 1.015 (1.005-1.035) Urine Protein Negative (NEGATIVE) Urine Glucose (UA) Negative (NEGATIVE) Urine Ketones Negative (NEGATIVE) Urine Blood Negative (NEGATIVE) Urine Nitrite Negative (NEGATIVE) Urine Bilirubin Negative (NEGATIVE) Urine Urobilinogen Normal MG/DL (0.0-1.0) Urine Leukocyte Esterase Negative (NEGATIVE) Urine RBC 0 /HPF (0 - 2) Urine WBC 0-2 /HPF (0 - 2) Urine Squamous Epithelial Cells Occasional /LPF Urine Bacteria Occasional /HPF (NONE) Urine Random Sodium 69 mmol/L (20-110) Microbiology Date/Time Source Procedure Growth Status 06/10/18 14:10 Stool Clostridium difficile Toxin Assay - Final Complete Intake and Output 06/11/18 06/12/18 19:00 07:00 Intake Total 860 ml Balance 860 ml Intake Oral 860 ml # Voids 1 Objective General: No acute distress, awake and alert HEENT: NCAT, sclera anicteric, PERRL, EOMI. Neck: Supple, no significant jugular venous distention, Lungs: Good inspiratory effort, Decrease air on the bases, no Wheeze or Rales. Heart: Regular rate and rhythm, normal S1/S2, no murmurs Abdomen: soft, nontender, nondistended. Normoactive bowel sounds, Obesity / Rectal: Refused and deferred. Extremities: No Cyanosis , clubbing, +1 edema. Neuro: A&O x 3, Able to move all extremities Skin: warm, no rashes or lesions Psych: Normal mood and affect Assessment/Plan Assessment/Plan (1) Gout Assessment & Plan: Acute attack. Continue indomethacin (2) HTN (hypertension) Assessment & Plan: continue norvasc, aldactone and coreg (3) SVETLANA on CKD. (4) Hypercholesteremia Assessment & Plan: Continue lipitor (5) HX: breast cancer (6) Diabetes mellitus Assessment & Plan: Continue novolog sliding scale. (7) Leukocytosis Assessment & Plan: monitor labs Papa French MD Jun 12, 2018 21:36
[2018-06-13] VITALS: BP 122/60
[2018-06-13 04:00] VITALS: BP 145/59
[2018-06-13] MEDS: Heparin 5000 units/ml inj SUBQ SCH ×3 (05:35→21:35)
[2018-06-13] MEDS: NovoLOG Insulin Flexpen SUBQ SCH ×4 (05:58→20:36)
[2018-06-13 06:09] LABS: BASOPHILS % (AUTO) 0.6 % (0.0-2.0); EOSINOPHILS % (AUTO) 1.4 % (0.0-3.0); HEMATOCRIT 26.6 % (37.0-47.0); HEMOGLOBIN 8.7 G/DL (12.0-16.0); LYMPHOCYTES % (AUTO) 25.9 % (20.0-45.0); MEAN CORPUSCULAR VOLUME 88 FL (80-99); MONOCYTES % (AUTO) 8.1 % (1.0-10.0); PLATELET COUNT 293 K/UL (150-450); RED CELL DISTRIBUTION WIDTH 12.9 % (11.6-14.8); WHITE BLOOD COUNT 12.1 K/UL (4.8-10.8)
[2018-06-13 06:49] LABS: ALANINE AMINOTRANSFERASE 19 U/L (12-78); ALBUMIN 3.1 G/DL (3.4-5.0); ALBUMIN/GLOBULIN RATIO 0.7 (1.0-2.7); ALKALINE PHOSPHATASE 84 U/L (46-116); ANION GAP 8 mmol/L (5-15); ASPARTATE AMINO TRANSFERASE 7 U/L (15-37); BILIRUBIN,TOTAL 0.2 MG/DL (0.2-1.0); BLOOD UREA NITROGEN 67 mg/dL (7-18); CALCIUM 9.2 MG/DL (8.5-10.1); CARBON DIOXIDE 25 MMOL/L (21-32); CHLORIDE 102 MMOL/L (98-107); CREATININE 2.2 MG/DL (0.55-1.30); PHOSPHORUS 3.9 MG/DL (2.5-4.9); POTASSIUM 4.4 MMOL/L (3.5-5.1); SODIUM 135 MMOL/L (136-145)
[2018-06-13 08:00] VITALS: BP 138/59
[2018-06-13] MEDS: Carvedilol 12.5mg tab ORAL SCH ×2 (08:55→20:26)
[2018-06-13] MEDS: Spironolactone 50mg tab ORAL SCH (08:55)
[2018-06-13] MEDS: Aspirin Baby 81mg ORAL SCH (08:55)
[2018-06-13] MEDS: Vitamin B12 1000mcg/ml Inj SUBQ SCH (08:56)
[2018-06-13] MEDS: Docusate 100mg cap ORAL SCH ×3 (08:56→17:28)
[2018-06-13 12:00] VITALS: BP 140/55
--- NOTE | 2018-06-13 14:09 | General Progress Note ---
Assessment/Plan Problem List: (1) Major depression, recurrent ICD Codes: F33.9 - Major depressive disorder, recurrent, unspecified SNOMED: 14511232 (2) Anxiety disorder ICD Codes: F41.9 - Anxiety disorder, unspecified SNOMED: 551822280 Status: stable, progressing Assessment/Plan Lexapro 10mg qam Benadryl 25mg qhs provided ro/st Subjective Neurologic/Psychiatric: Reports: anxiety, depressed, emotional problems Allergies: Coded Allergies: No Known Allergies (Unverified , 09/17/12) Objective Last 24 Hour Vital Signs Date Time Temp Pulse Resp B/P (MAP) Pulse Ox O2 Delivery O2 Flow Rate FiO2 06/13/18 12:00 98.3 57 20 140/55 (83) 98 06/13/18 09:00 Room Air 06/13/18 08:56 64 138/59 06/13/18 08:55 64 138/59 06/13/18 08:00 98.0 64 19 138/59 (85) 100 06/13/18 04:00 98.1 62 19 145/59 (87) 96 06/13/18 00:00 98.2 60 17 122/60 (80) 96 06/12/18 21:00 Room Air 06/12/18 20:46 66 130/61 06/12/18 20:00 98.6 66 18 130/61 (84) 97 06/12/18 16:00 98.4 61 21 142/73 (96) 97 Intake and Output 06/12/18 06/13/18 19:00 07:00 Intake Total 860 ml 120 ml Output Total 1200 ml Balance 860 ml -1080 ml Intake Oral 860 ml 120 ml Output Urine Total 1200 ml # Voids 2 Laboratory Tests 06/13/18 05:40: Urine Eosinophils None seen 06/13/18 05:50: White Blood Count 12.1H, Red Blood Count 3.00L, Hemoglobin 8.7L, Hematocrit 26.6L, Mean Corpuscular Volume 88, Mean Corpuscular Hemoglobin 29.1, Mean Corpuscular Hemoglobin Concent 32.9, Red Cell Distribution Width 12.9, Platelet Count 293, Mean Platelet Volume 6.4L, Neutrophils (%) (Auto) 64.0, Lymphocytes ( %) (Auto) 25.9, Monocytes (%) (Auto) 8.1, Eosinophils (%) (Auto) 1.4, Basophils (%) (Auto) 0.6, Sodium Level 135L, Potassium Level 4.4, Chloride Level 102, Carbon Dioxide Level 25, Anion Gap 8, Blood Urea Nitrogen 67H, Creatinine 2.2H, Estimat Glomerular Filtration Rate , Glucose Level 149H, Uric Acid 10.9H, Calcium Level 9.2, Phosphorus Level 3.9, Magnesium Level 2.2, Total Bilirubin 0.2, Aspartate Amino Transf (AST/SGOT) 7L, Alanine Aminotransferase (ALT/SGPT) 19, Alkaline Phosphatase 84, C-Reactive Protein, Quantitative 0.9, Pro-B-Type Natriuretic Peptide 155H, Total Protein 7.5, Albumin 3.1L, Globulin 4.4, Albumin /Globulin Ratio 0.7L Height (Feet): 5 Height (Inches): 6.00 Weight (Pounds): 227 General Appearance: no apparent distress, alert Neurologic: oriented x 3, responsive, depressed affect Geovanna Murguia MD Jun 13, 2018 14:09
--- NOTE | 2018-06-13 14:37 | Pulmonology Progress Note ---
Assessment/Plan Problems: (1) ACS (acute coronary syndrome) (2) ATN (acute tubular necrosis) (3) Decreased activities of daily living (ADL) (4) Diabetes mellitus (5) Neuropathy (6) History of hypertension Assessment/Plan on colchine still has lots of pain cardiology note appreciated symptomatic treatment renal w/u on colchicine Indocin for Gouty arthritis f/u WBC med/surg Subjective ROS Limited/Unobtainable: No Constitutional: Reports: no symptoms HEENT: Repors: no symptoms Respiratory: Reports: no symptoms Allergies: Coded Allergies: No Known Allergies (Unverified , 09/17/12) Objective Last 24 Hour Vital Signs Date Time Temp Pulse Resp B/P (MAP) Pulse Ox O2 Delivery O2 Flow Rate FiO2 06/13/18 12:00 98.3 57 20 140/55 (83) 98 06/13/18 09:00 Room Air 06/13/18 08:56 64 138/59 06/13/18 08:55 64 138/59 06/13/18 08:00 98.0 64 19 138/59 (85) 100 06/13/18 04:00 98.1 62 19 145/59 (87) 96 06/13/18 00:00 98.2 60 17 122/60 (80) 96 06/12/18 21:00 Room Air 06/12/18 20:46 66 130/61 06/12/18 20:00 98.6 66 18 130/61 (84) 97 06/12/18 16:00 98.4 61 21 142/73 (96) 97 Intake and Output 06/12/18 06/13/18 19:00 07:00 Intake Total 860 ml 120 ml Output Total 1200 ml Balance 860 ml -1080 ml Intake Oral 860 ml 120 ml Output Urine Total 1200 ml # Voids 2 Objective General Appearance: WD/WN Lines, tubes and drains: peripheral HEENT: normocephalic Neck: non-tender Respiratory/Chest: chest wall non-tender, lungs clear Cardiovascular/Chest: normal peripheral pulses Abdomen: normal bowel sounds Genitourinary/Rectal: normal genital exam Extremities: normal range of motion, non-pitting Laboratory Tests 06/13/18 05:40: Urine Eosinophils None seen 06/13/18 05:50: White Blood Count 12.1H, Red Blood Count 3.00L, Hemoglobin 8.7L, Hematocrit 26.6L, Mean Corpuscular Volume 88, Mean Corpuscular Hemoglobin 29.1, Mean Corpuscular Hemoglobin Concent 32.9, Red Cell Distribution Width 12.9, Platelet Count 293, Mean Platelet Volume 6.4L, Neutrophils (%) (Auto) 64.0, Lymphocytes ( %) (Auto) 25.9, Monocytes (%) (Auto) 8.1, Eosinophils (%) (Auto) 1.4, Basophils (%) (Auto) 0.6, Sodium Level 135L, Potassium Level 4.4, Chloride Level 102, Carbon Dioxide Level 25, Anion Gap 8, Blood Urea Nitrogen 67H, Creatinine 2.2H, Estimat Glomerular Filtration Rate , Glucose Level 149H, Uric Acid 10.9H, Calcium Level 9.2, Phosphorus Level 3.9, Magnesium Level 2.2, Total Bilirubin 0.2, Aspartate Amino Transf (AST/SGOT) 7L, Alanine Aminotransferase (ALT/SGPT) 19, Alkaline Phosphatase 84, C-Reactive Protein, Quantitative 0.9, Pro-B-Type Natriuretic Peptide 155H, Total Protein 7.5, Albumin 3.1L, Globulin 4.4, Albumin /Globulin Ratio 0.7L Current Medications Medications (Trade) Dose Ordered Sig/Nick Route PRN Reason Start Time Stop Time Status Last Admin Dose Admin Acetaminophen (Tylenol) 500 mg Q4H PRN ORAL Mild Pain/Temp > 100.5 06/13/18 01:30 07/09/18 21:29 Allopurinol (Allopurinol) 300 mg DAILY ORAL 06/13/18 09:00 07/13/18 08:59 06/13/18 08:56 Amlodipine Besylate (Norvasc) 5 mg DAILY ORAL 06/13/18 09:00 07/10/18 08:59 06/13/18 08:56 Aspirin (ASA) 81 mg DAILY ORAL 06/13/18 09:00 07/10/18 08:59 06/13/18 08:55 Atorvastatin Calcium (Lipitor) 40 mg BEDTIME ORAL 06/13/18 21:00 07/09/18 22:29 Carvedilol (Coreg) 12.5 mg EVERY 12 HOURS ORAL 06/13/18 09:00 07/09/18 22:29 06/13/18 08:55 Colchicine (Colchicine) 0.6 mg Q8HR PRN ORAL For Pain 06/13/18 06:00 07/09/18 21:29 Cyanocobalamin (Vitamin B12) 1,000 mcg DAILY SUBQ 06/13/18 09:00 06/14/18 09:01 06/13/18 08:56 Dextrose (Dextrose 50%) 25 ml Q30M PRN IV Hypoglycemia 06/12/18 22:45 07/09/18 21:44 Dextrose (Dextrose 50%) 50 ml Q30M PRN IV Hypoglycemia 06/12/18 22:45 07/09/18 21:44 Diphenhydramine HCl (Benadryl) 25 mg BEDTIME ORAL 06/13/18 21:00 07/10/18 20:59 Docusate Sodium (Colace) 100 mg TID ORAL 06/13/18 09:00 07/09/18 22:29 06/13/18 12:29 Escitalopram Oxalate (Lexapro) 10 mg DAILY ORAL 06/13/18 09:00 07/10/18 11:59 06/13/18 08:56 Heparin Sodium (Porcine) (Heparin 5000 units/ml) 5,000 units EVERY 8 HOURS SUBQ 06/13/18 06:00 07/09/18 21:59 06/13/18 14:31 Insulin Aspart (NovoLOG) BEFORE MEALS AND HS SUBQ 06/13/18 06:30 07/10/18 06:29 06/13/18 12:31 Ondansetron HCl (Zofran) 4 mg Q4HR PRN IVP Nausea & Vomiting 06/13/18 01:00 07/09/18 21:29 Pantoprazole (Protonix) 40 mg DAILY ORAL 06/13/18 09:00 07/10/18 08:59 06/13/18 08:55 Spironolactone (Aldactone) 50 mg DAILY ORAL 06/13/18 09:00 07/10/18 08:59 06/13/18 08:55 Temazepam (Restoril) 15 mg HSPRN PRN ORAL Insomnia 06/13/18 22:30 06/18/18 22:29 Calli Lux MD Jun 13, 2018 14:37
--- NOTE | 2018-06-13 15:37 | Infectious Diseases Prog Note ---
Assessment/Plan Assessment/Plan Abx: None Assessment: B/l feet pain- suspect Gout flare; improving Leukocytosis- likely 2ry to s/p high dose steroid -cdff neg -CXR: Cardiomegaly. No definite acute process. Evidence of prior left axillary node dissection Afebrile SVETLANA, worsened, now improving Breast CA s/p lumpectomy gout GERD Obesity CHF HTN CVA DM2 HLD s/p hysterectomy ~30 yrs ago Plan: -Continue to monitor off abx -f/u cx -Monitor CBC/CMP, temperatures -aspiration precautions Thank you for this consultation. Will continue to follow along with you. Discussed with RN Subjective Allergies: Coded Allergies: No Known Allergies (Unverified , 09/17/12) Subjective afebrile wbc improving b/l 1st toe pain and swelling improving Objective Vital Signs Last 24 Hour Vital Signs Date Time Temp Pulse Resp B/P (MAP) Pulse Ox O2 Delivery O2 Flow Rate FiO2 06/13/18 12:00 98.3 57 20 140/55 (83) 98 06/13/18 09:00 Room Air 06/13/18 08:56 64 138/59 06/13/18 08:55 64 138/59 06/13/18 08:00 98.0 64 19 138/59 (85) 100 06/13/18 04:00 98.1 62 19 145/59 (87) 96 06/13/18 00:00 98.2 60 17 122/60 (80) 96 06/12/18 21:00 Room Air 06/12/18 20:46 66 130/61 06/12/18 20:00 98.6 66 18 130/61 (84) 97 06/12/18 16:00 98.4 61 21 142/73 (96) 97 Height (Feet): 5 Height (Inches): 6.00 Weight (Pounds): 227 Objective GENERAL: Shows to be obese elderly female, in no apparent respiratory distress. NECK: Supple. No jugular venous distention. LUNGS: Clear to auscultation and percussion. CARDIAC: S1 is normal. S2 is normal. Regular rate and rhythm. No heaves, thrills, or gallops noted. ABDOMEN: Obese. Positive bowel sounds. Nontender. EXTREMITIES: There is no edema, clubbing, or cyanosis.b/l 1st toe swelling L>R and TTP, mild rednes on L 1st toe NEUROLOGICAL: She is awake, alert, responsive, and in no apparent respiratory distress. Laboratory Tests Test 06/13/18 05:40 06/13/18 05:50 Urine Eosinophils None seen (NONE SEEN) White Blood Count 12.1 K/UL (4.8-10.8) H Red Blood Count 3.00 M/UL (4.20-5.40) L Hemoglobin 8.7 G/DL (12.0-16.0) L Hematocrit 26.6 % (37.0-47.0) L Mean Corpuscular Volume 88 FL (80-99) Mean Corpuscular Hemoglobin 29.1 PG (27.0-31.0) Mean Corpuscular Hemoglobin Concent 32.9 G/DL (32.0-36.0) Red Cell Distribution Width 12.9 % (11.6-14.8) Platelet Count 293 K/UL (150-450) Mean Platelet Volume 6.4 FL (6.5-10.1) L Neutrophils (%) (Auto) 64.0 % (45.0-75.0) Lymphocytes (%) (Auto) 25.9 % (20.0-45.0) Monocytes (%) (Auto) 8.1 % (1.0-10.0) Eosinophils (%) (Auto) 1.4 % (0.0-3.0) Basophils (%) (Auto) 0.6 % (0.0-2.0) Sodium Level 135 MMOL/L (136-145) L Potassium Level 4.4 MMOL/L (3.5-5.1) Chloride Level 102 MMOL/L (98-107) Carbon Dioxide Level 25 MMOL/L (21-32) Anion Gap 8 mmol/L (5-15) Blood Urea Nitrogen 67 mg/dL (7-18) H Creatinine 2.2 MG/DL (0.55-1.30) H Estimat Glomerular Filtration Rate mL/min (>60) Glucose Level 149 MG/DL (74-106) H Uric Acid 10.9 MG/DL (2.6-7.2) H Calcium Level 9.2 MG/DL (8.5-10.1) Phosphorus Level 3.9 MG/DL (2.5-4.9) Magnesium Level 2.2 MG/DL (1.8-2.4) Total Bilirubin 0.2 MG/DL (0.2-1.0) Aspartate Amino Transf (AST/SGOT) 7 U/L (15-37) L Alanine Aminotransferase (ALT/SGPT) 19 U/L (12-78) Alkaline Phosphatase 84 U/L (46-116) C-Reactive Protein, Quantitative 0.9 mg/dL (0.00-0.90) Pro-B-Type Natriuretic Peptide 155 pg/mL (0-125) H Total Protein 7.5 G/DL (6.4-8.2) Albumin 3.1 G/DL (3.4-5.0) L Globulin 4.4 g/dL Albumin/Globulin Ratio 0.7 (1.0-2.7) L Current Medications Medications (Trade) Dose Ordered Sig/Nick Route PRN Reason Start Time Stop Time Status Last Admin Dose Admin Acetaminophen (Tylenol) 500 mg Q4H PRN ORAL Mild Pain/Temp > 100.5 06/13/18 01:30 07/09/18 21:29 Allopurinol (Allopurinol) 300 mg DAILY ORAL 06/13/18 09:00 07/13/18 08:59 06/13/18 08:56 Amlodipine Besylate (Norvasc) 5 mg DAILY ORAL 06/13/18 09:00 07/10/18 08:59 06/13/18 08:56 Aspirin (ASA) 81 mg DAILY ORAL 06/13/18 09:00 07/10/18 08:59 06/13/18 08:55 Atorvastatin Calcium (Lipitor) 40 mg BEDTIME ORAL 06/13/18 21:00 07/09/18 22:29 Carvedilol (Coreg) 12.5 mg EVERY 12 HOURS ORAL 06/13/18 09:00 07/09/18 22:29 06/13/18 08:55 Colchicine (Colchicine) 0.6 mg Q8HR PRN ORAL For Pain 06/13/18 06:00 07/09/18 21:29 Cyanocobalamin (Vitamin B12) 1,000 mcg DAILY SUBQ 06/13/18 09:00 06/14/18 09:01 06/13/18 08:56 Dextrose (Dextrose 50%) 25 ml Q30M PRN IV Hypoglycemia 06/12/18 22:45 07/09/18 21:44 Dextrose (Dextrose 50%) 50 ml Q30M PRN IV Hypoglycemia 06/12/18 22:45 07/09/18 21:44 Diphenhydramine HCl (Benadryl) 25 mg BEDTIME ORAL 06/13/18 21:00 07/10/18 20:59 Docusate Sodium (Colace) 100 mg TID ORAL 06/13/18 09:00 07/09/18 22:29 06/13/18 12:29 Escitalopram Oxalate (Lexapro) 10 mg DAILY ORAL 06/13/18 09:00 07/10/18 11:59 06/13/18 08:56 Heparin Sodium (Porcine) (Heparin 5000 units/ml) 5,000 units EVERY 8 HOURS SUBQ 06/13/18 06:00 07/09/18 21:59 06/13/18 14:31 Insulin Aspart (NovoLOG) BEFORE MEALS AND HS SUBQ 06/13/18 06:30 07/10/18 06:29 06/13/18 12:31 Ondansetron HCl (Zofran) 4 mg Q4HR PRN IVP Nausea & Vomiting 06/13/18 01:00 07/09/18 21:29 Pantoprazole (Protonix) 40 mg DAILY ORAL 06/13/18 09:00 07/10/18 08:59 06/13/18 08:55 Spironolactone (Aldactone) 50 mg DAILY ORAL 06/13/18 09:00 07/10/18 08:59 06/13/18 08:55 Temazepam (Restoril) 15 mg HSPRN PRN ORAL Insomnia 06/13/18 22:30 06/18/18 22:29 Kathryn Hernandez M.D. Jun 13, 2018 15:37
[2018-06-13] MEDS ORDERED: Sodium Chloride 500ML 550 ML IV SCH (15:46)
--- NOTE | 2018-06-13 15:46 | Nephrology Progress Note ---
Assessment/Plan Problem List: (1) ATN (acute tubular necrosis) (2) HTN (hypertension) (3) Gout (4) Diabetes mellitus (5) Anemia (6) Obesity (BMI 30-39.9) Assessment Acute Renal Failure DM HTN Neuropathy Obesity Breast Ca s/p Lumpectomy s/p Hysterectomy GERD Gout Ej Fx 60% Anemia Plan DC Indomethacin Adjust BP meds Abraham Hold Diuretics urine studies Anemia rodriguez Add allopurinol Monitor renal parameters Avoid Nephrotoxics NS bollous Thiamin Folic acid Ergocalciferol Objective Objective Last 24 Hour Vital Signs Date Time Temp Pulse Resp B/P (MAP) Pulse Ox O2 Delivery O2 Flow Rate FiO2 06/13/18 12:00 98.3 57 20 140/55 (83) 98 06/13/18 09:00 Room Air 06/13/18 08:56 64 138/59 06/13/18 08:55 64 138/59 06/13/18 08:00 98.0 64 19 138/59 (85) 100 06/13/18 04:00 98.1 62 19 145/59 (87) 96 06/13/18 00:00 98.2 60 17 122/60 (80) 96 06/12/18 21:00 Room Air 06/12/18 20:46 66 130/61 06/12/18 20:00 98.6 66 18 130/61 (84) 97 06/12/18 16:00 98.4 61 21 142/73 (96) 97 Intake and Output 06/12/18 06/13/18 19:00 07:00 Intake Total 860 ml 120 ml Output Total 1200 ml Balance 860 ml -1080 ml Intake Oral 860 ml 120 ml Output Urine Total 1200 ml # Voids 2 Laboratory Tests 06/13/18 05:40: Urine Eosinophils None seen 06/13/18 05:50: White Blood Count 12.1H, Red Blood Count 3.00L, Hemoglobin 8.7L, Hematocrit 26.6L, Mean Corpuscular Volume 88, Mean Corpuscular Hemoglobin 29.1, Mean Corpuscular Hemoglobin Concent 32.9, Red Cell Distribution Width 12.9, Platelet Count 293, Mean Platelet Volume 6.4L, Neutrophils (%) (Auto) 64.0, Lymphocytes ( %) (Auto) 25.9, Monocytes (%) (Auto) 8.1, Eosinophils (%) (Auto) 1.4, Basophils (%) (Auto) 0.6, Sodium Level 135L, Potassium Level 4.4, Chloride Level 102, Carbon Dioxide Level 25, Anion Gap 8, Blood Urea Nitrogen 67H, Creatinine 2.2H, Estimat Glomerular Filtration Rate , Glucose Level 149H, Uric Acid 10.9H, Calcium Level 9.2, Phosphorus Level 3.9, Magnesium Level 2.2, Total Bilirubin 0.2, Aspartate Amino Transf (AST/SGOT) 7L, Alanine Aminotransferase (ALT/SGPT) 19, Alkaline Phosphatase 84, C-Reactive Protein, Quantitative 0.9, Pro-B-Type Natriuretic Peptide 155H, Total Protein 7.5, Albumin 3.1L, Globulin 4.4, Albumin /Globulin Ratio 0.7L Height (Feet): 5 Height (Inches): 6.00 Weight (Pounds): 227 Adithya Valladares MD Jun 13, 2018 15:46
[2018-06-13 16:00] VITALS: BP 136/61
[2018-06-13] MEDS ORDERED: Vitamin D 50,000 units cap ORAL SCH (17:00)
[2018-06-13 20:21] VITALS: BP 131/66
[2018-06-13] MEDS: Atorvastatin 20mg tab ORAL SCH (20:26)
[2018-06-14] VITALS: BP 119/51
[2018-06-14 04:00] VITALS: BP 127/52
[2018-06-14] MEDS: Heparin 5000 units/ml inj SUBQ SCH ×3 (05:45→21:16)
[2018-06-14] MEDS: NovoLOG Insulin Flexpen SUBQ SCH ×4 (05:45→21:15)
[2018-06-14 06:24] LABS: BASOPHILS % (AUTO) 1.1 % (0.0-2.0); EOSINOPHILS % (AUTO) 2.2 % (0.0-3.0); HEMATOCRIT 27.8 % (37.0-47.0); HEMOGLOBIN 9.2 G/DL (12.0-16.0); LYMPHOCYTES % (AUTO) 25.3 % (20.0-45.0); MEAN CORPUSCULAR VOLUME 89 FL (80-99); MONOCYTES % (AUTO) 7.6 % (1.0-10.0); NEUTROPHILS % (AUTO) 63.8 % (45.0-75.0); PLATELET COUNT 311 K/UL (150-450); RED BLOOD COUNT 3.12 M/UL (4.20-5.40); RED CELL DISTRIBUTION WIDTH 13.1 % (11.6-14.8); WHITE BLOOD COUNT 12.8 K/UL (4.8-10.8)
[2018-06-14 06:55] LABS: ALANINE AMINOTRANSFERASE 24 U/L (12-78); ALBUMIN 3.1 G/DL (3.4-5.0); ALBUMIN/GLOBULIN RATIO 0.7 (1.0-2.7); ALKALINE PHOSPHATASE 86 U/L (46-116); ANION GAP 7 mmol/L (5-15); ASPARTATE AMINO TRANSFERASE 14 U/L (15-37); BILIRUBIN,TOTAL 0.2 MG/DL (0.2-1.0); BLOOD UREA NITROGEN 62 mg/dL (7-18); CARBON DIOXIDE 27 MMOL/L (21-32); CHLORIDE 106 MMOL/L (98-107); CREATININE 2.3 MG/DL (0.55-1.30); PHOSPHORUS 3.9 MG/DL (2.5-4.9); POTASSIUM 4.8 MMOL/L (3.5-5.1); SODIUM 139 MMOL/L (136-145)
--- NOTE | 2018-06-14 07:40 | Pulmonology Progress Note ---
Assessment/Plan Assessment/Plan ASSESSMENT BLE edema Acute renal failure Gout, probably gout flare Peripheral neuropathy Diabetes mellitus type 2 Hypertension Obesity Anemia B 12 deficiency Folic acid deficiency Major depressive disorder Anxiety History of breast cancer , status post lumpectomy PLAN OF CARE Med Surg floor initially on indomethacin and Lasix , both dc due to worsening renal failure allopurinol added and colchicine prn uric acid trending down monitor renal parameters and electrolytes, correct lytes prn, and avoid nephrotoxic follow-up with nephro recs despite uric acid go down , pain BLE add small dose of Neurontin will need slowly uptitrated for effect as outpatient continue home meds, including Aspirin , statin and Aldactone BP management with CCB and BB, optimize further as needed DVT and GI prophylaxis BS management with SSI ECHO with PEF 60 % and RVSP of 35 c/w mild pulm HTN stool for C. difficile negative chest x-ray revealed cardiomegaly , but no acute process monitor H&H with goal to keep hemoglobin 7 , remains at baseline CEA WNL , stool for OB negative iron stable , low B 12 and folate, started on supplements bowel regimen pain management supportive care PT RX continue discussed with daughter POC and progress daughter lives out of town, mother lives alone, daughter will consider short term rehab recommended to speak with counseling case manager re options available case discussed and evaluated by supervising physician Subjective Allergies: Coded Allergies: No Known Allergies (Unverified , 09/17/12) Subjective mild leucocytosis, afebrile pulse ox stable on RA HH stable uric acid trending down still ++ pain BLE Objective Last 24 Hour Vital Signs Date Time Temp Pulse Resp B/P (MAP) Pulse Ox O2 Delivery O2 Flow Rate FiO2 06/14/18 04:00 98.4 66 18 127/52 (77) 96 06/14/18 00:00 98.9 65 19 119/51 (73) 96 06/13/18 21:00 Room Air 06/13/18 20:26 63 131/66 06/13/18 20:21 98.3 63 20 131/66 (87) 98 06/13/18 16:00 97.8 68 19 136/61 (86) 98 06/13/18 12:00 98.3 57 20 140/55 (83) 98 06/13/18 09:00 Room Air 06/13/18 08:56 64 138/59 12/14/18 08:55 64 138/59 12/14/18 08:00 98.0 64 19 138/59 (85) 100 Intake and Output 06/13/18 06/14/18 18:59 06:59 Intake Total 760 ml 880 ml Output Total 1050 ml 1300 ml Balance -290 ml -420 ml Intake Oral 760 ml 880 ml Output Urine Total 800 ml 1300 ml Stool Total 250 ml # Voids 2 # Bowel Movements 1 1 General Appearance: no acute distress, other - aawake, alert, oriented, obese AA female HEENT: normocephalic, atraumatic, anicteric, mucous membranes moist Respiratory/Chest: lungs clear, no accessory muscle use Cardiovascular: normal peripheral pulses, normal rate, no JVD Abdomen: normal bowel sounds, soft, non tender - obese Extremities: pedal pulses normal, other - trace to +1 edema BLE Neurologic/Psychiatric: abnormal gait, alert, oriented x 3, responsive Musculoskeletal: normal muscle bulk Laboratory Tests 06/14/18 03:20: Urine Eosinophils None seen 06/14/18 06:03: White Blood Count 12.8H, Red Blood Count 3.12L, Hemoglobin 9.2L, Hematocrit 27.8L, Mean Corpuscular Volume 89, Mean Corpuscular Hemoglobin 29.5, Mean Corpuscular Hemoglobin Concent 33.1, Red Cell Distribution Width 13.1, Platelet Count 311, Mean Platelet Volume 6.6, Neutrophils (%) (Auto) 63.8, Lymphocytes (% ) (Auto) 25.3, Monocytes (%) (Auto) 7.6, Eosinophils (%) (Auto) 2.2, Basophils ( %) (Auto) 1.1, Sodium Level 139, Potassium Level 4.8, Chloride Level 106, Carbon Dioxide Level 27, Anion Gap 7, Blood Urea Nitrogen 62H, Creatinine 2.3H, Estimat Glomerular Filtration Rate , Glucose Level 168H, Uric Acid 8.5H, Calcium Level 9.0, Phosphorus Level 3.9, Magnesium Level 2.2, Total Bilirubin 0.2, Aspartate Amino Transf (AST/SGOT) 14L, Alanine Aminotransferase (ALT/SGPT) 24, Alkaline Phosphatase 86, Pro-B-Type Natriuretic Peptide 71, Total Protein 7.5, Albumin 3.1L, Globulin 4.4, Albumin/Globulin Ratio 0.7L Current Medications Medications (Trade) Dose Ordered Sig/Nick Route PRN Reason Start Time Stop Time Status Last Admin Dose Admin Acetaminophen (Tylenol) 500 mg Q4H PRN ORAL Mild Pain/Temp > 100.5 06/13/18 01:30 07/09/18 21:29 Allopurinol (Allopurinol) 300 mg DAILY ORAL 06/13/18 09:00 07/13/18 08:59 06/13/18 08:56 Amlodipine Besylate (Norvasc) 5 mg DAILY ORAL 06/13/18 09:00 07/10/18 08:59 06/13/18 08:56 Aspirin (ASA) 81 mg DAILY ORAL 06/13/18 09:00 07/10/18 08:59 06/13/18 08:55 Atorvastatin Calcium (Lipitor) 40 mg BEDTIME ORAL 06/13/18 21:00 07/09/18 22:29 06/13/18 20:26 Carvedilol (Coreg) 12.5 mg EVERY 12 HOURS ORAL 06/13/18 09:00 07/09/18 22:29 06/13/18 20:26 Colchicine (Colchicine) 0.6 mg Q8HR PRN ORAL For Pain 06/13/18 06:00 07/09/18 21:29 Cyanocobalamin (Vitamin B12) 1,000 mcg DAILY SUBQ 06/13/18 09:00 06/14/18 09:01 06/13/18 08:56 Dextrose (Dextrose 50%) 25 ml Q30M PRN IV Hypoglycemia 06/12/18 22:45 07/09/18 21:44 Dextrose (Dextrose 50%) 50 ml Q30M PRN IV Hypoglycemia 06/12/18 22:45 07/09/18 21:44 Diphenhydramine HCl (Benadryl) 25 mg BEDTIME ORAL 06/13/18 21:00 07/10/18 20:59 06/13/18 20:26 Docusate Sodium (Colace) 100 mg TID ORAL 06/13/18 09:00 07/09/18 22:29 06/13/18 12:29 Ergocalciferol (Drisdol) 50,000 intlu QWEEK ORAL 06/13/18 17:00 07/13/18 16:59 06/13/18 17:28 Escitalopram Oxalate (Lexapro) 10 mg DAILY ORAL 06/13/18 09:00 07/10/18 11:59 06/13/18 08:56 Folic Acid (Folate) 2 mg DAILY ORAL 06/13/18 15:44 07/13/18 15:43 06/13/18 17:28 Heparin Sodium (Porcine) (Heparin 5000 units/ml) 5,000 units EVERY 8 HOURS SUBQ 06/13/18 06:00 07/09/18 21:59 06/14/18 05:45 Insulin Aspart (NovoLOG) BEFORE MEALS AND HS SUBQ 06/13/18 06:30 07/10/18 06:29 06/14/18 05:45 Ondansetron HCl (Zofran) 4 mg Q4HR PRN IVP Nausea & Vomiting 06/13/18 01:00 07/09/18 21:29 Pantoprazole (Protonix) 40 mg DAILY ORAL 06/13/18 09:00 07/10/18 08:59 06/13/18 08:55 Sodium Chloride 550 ml @ 0 mls/hr Q0M IV 06/13/18 15:46 07/13/18 15:45 Spironolactone (Aldactone) 50 mg DAILY ORAL 06/13/18 09:00 07/10/18 08:59 06/13/18 08:55 Temazepam (Restoril) 15 mg HSPRN PRN ORAL Insomnia 06/13/18 22:30 06/18/18 22:29 06/14/18 02:07 Thiamine HCl (Vitamin B1) 100 mg DAILY ORAL 06/14/18 09:00 07/14/18 08:59 Angelina Alvarado [employer] Jun 14, 2018 07:40
--- NOTE | 2018-06-14 08:18 | Infectious Diseases Prog Note ---
Assessment/Plan Assessment/Plan Abx: None Assessment: B/l feet pain- suspect Gout flare; improving Leukocytosis- likely 2ry to s/p high dose steroid -cdff neg -CXR: Cardiomegaly. No definite acute process. Evidence of prior left axillary node dissection Afebrile SVETLANA, worsened, now improving Breast CA s/p lumpectomy gout GERD Obesity CHF HTN CVA DM2 HLD s/p hysterectomy ~30 yrs ago Plan: -Continue to monitor off abx as clinically improving -f/u cx -Monitor CBC/CMP, temperatures -aspiration precautions Thank you for this consultation. Will continue to follow along with you. Discussed with RN Subjective Allergies: Coded Allergies: No Known Allergies (Unverified , 09/17/12) Subjective Pain controlled Afebrile leukocytosis resolving Objective Vital Signs Last 24 Hour Vital Signs Date Time Temp Pulse Resp B/P (MAP) Pulse Ox O2 Delivery O2 Flow Rate FiO2 06/14/18 04:00 98.4 66 18 127/52 (77) 96 06/14/18 00:00 98.9 65 19 119/51 (73) 96 06/13/18 21:00 Room Air 06/13/18 20:26 63 131/66 06/13/18 20:21 98.3 63 20 131/66 (87) 98 06/13/18 16:00 97.8 68 19 136/61 (86) 98 06/13/18 12:00 98.3 57 20 140/55 (83) 98 06/13/18 09:00 Room Air 06/13/18 08:56 64 138/59 06/13/18 08:55 64 138/59 Height (Feet): 5 Height (Inches): 6.00 Weight (Pounds): 227 Objective GENERAL: NAD LUNGS: Clear to auscultation and percussion. CARDIAC: S1 is normal. S2 is normal. Regular rate and rhythm. ABDOMEN: Obese. Positive bowel sounds. Nontender. EXTREMITIES: There is no edema, clubbing, or cyanosis.b/l 1st toe swelling L>R and TTP, mild redness on L 1st toe NEUROLOGICAL: She is awake, alert, responsive, Laboratory Tests Test 06/14/18 03:20 06/14/18 06:03 Urine Eosinophils None seen (NONE SEEN) White Blood Count 12.8 K/UL (4.8-10.8) H Red Blood Count 3.12 M/UL (4.20-5.40) L Hemoglobin 9.2 G/DL (12.0-16.0) L Hematocrit 27.8 % (37.0-47.0) L Mean Corpuscular Volume 89 FL (80-99) Mean Corpuscular Hemoglobin 29.5 PG (27.0-31.0) Mean Corpuscular Hemoglobin Concent 33.1 G/DL (32.0-36.0) Red Cell Distribution Width 13.1 % (11.6-14.8) Platelet Count 311 K/UL (150-450) Mean Platelet Volume 6.6 FL (6.5-10.1) Neutrophils (%) (Auto) 63.8 % (45.0-75.0) Lymphocytes (%) (Auto) 25.3 % (20.0-45.0) Monocytes (%) (Auto) 7.6 % (1.0-10.0) Eosinophils (%) (Auto) 2.2 % (0.0-3.0) Basophils (%) (Auto) 1.1 % (0.0-2.0) Sodium Level 139 MMOL/L (136-145) Potassium Level 4.8 MMOL/L (3.5-5.1) Chloride Level 106 MMOL/L (98-107) Carbon Dioxide Level 27 MMOL/L (21-32) Anion Gap 7 mmol/L (5-15) Blood Urea Nitrogen 62 mg/dL (7-18) H Creatinine 2.3 MG/DL (0.55-1.30) H Estimat Glomerular Filtration Rate mL/min (>60) Glucose Level 168 MG/DL (74-106) H Uric Acid 8.5 MG/DL (2.6-7.2) H Calcium Level 9.0 MG/DL (8.5-10.1) Phosphorus Level 3.9 MG/DL (2.5-4.9) Magnesium Level 2.2 MG/DL (1.8-2.4) Total Bilirubin 0.2 MG/DL (0.2-1.0) Aspartate Amino Transf (AST/SGOT) 14 U/L (15-37) L Alanine Aminotransferase (ALT/SGPT) 24 U/L (12-78) Alkaline Phosphatase 86 U/L (46-116) Pro-B-Type Natriuretic Peptide 71 pg/mL (0-125) Total Protein 7.5 G/DL (6.4-8.2) Albumin 3.1 G/DL (3.4-5.0) L Globulin 4.4 g/dL Albumin/Globulin Ratio 0.7 (1.0-2.7) L Current Medications Medications (Trade) Dose Ordered Sig/Nick Route PRN Reason Start Time Stop Time Status Last Admin Dose Admin Acetaminophen (Tylenol) 500 mg Q4H PRN ORAL Mild Pain/Temp > 100.5 06/13/18 01:30 07/09/18 21:29 Allopurinol (Allopurinol) 300 mg DAILY ORAL 06/13/18 09:00 07/13/18 08:59 06/13/18 08:56 Amlodipine Besylate (Norvasc) 5 mg DAILY ORAL 06/13/18 09:00 07/10/18 08:59 06/13/18 08:56 Aspirin (ASA) 81 mg DAILY ORAL 06/13/18 09:00 07/10/18 08:59 06/13/18 08:55 Atorvastatin Calcium (Lipitor) 40 mg BEDTIME ORAL 06/13/18 21:00 07/09/18 22:29 06/13/18 20:26 Carvedilol (Coreg) 12.5 mg EVERY 12 HOURS ORAL 06/13/18 09:00 07/09/18 22:29 06/13/18 20:26 Colchicine (Colchicine) 0.6 mg Q8HR PRN ORAL For Pain 06/13/18 06:00 07/09/18 21:29 Cyanocobalamin (Vitamin B12) 1,000 mcg DAILY SUBQ 06/13/18 09:00 06/14/18 09:01 06/13/18 08:56 Dextrose (Dextrose 50%) 25 ml Q30M PRN IV Hypoglycemia 06/12/18 22:45 07/09/18 21:44 Dextrose (Dextrose 50%) 50 ml Q30M PRN IV Hypoglycemia 06/12/18 22:45 07/09/18 21:44 Diphenhydramine HCl (Benadryl) 25 mg BEDTIME ORAL 06/13/18 21:00 07/10/18 20:59 06/13/18 20:26 Docusate Sodium (Colace) 100 mg TID ORAL 06/13/18 09:00 07/09/18 22:29 06/13/18 12:29 Ergocalciferol (Drisdol) 50,000 intlu QWEEK ORAL 06/13/18 17:00 07/13/18 16:59 06/13/18 17:28 Escitalopram Oxalate (Lexapro) 10 mg DAILY ORAL 06/13/18 09:00 07/10/18 11:59 06/13/18 08:56 Folic Acid (Folate) 2 mg DAILY ORAL 06/13/18 15:44 07/13/18 15:43 06/13/18 17:28 Heparin Sodium (Porcine) (Heparin 5000 units/ml) 5,000 units EVERY 8 HOURS SUBQ 06/13/18 06:00 07/09/18 21:59 06/14/18 05:45 Insulin Aspart (NovoLOG) BEFORE MEALS AND HS SUBQ 06/13/18 06:30 07/10/18 06:29 06/14/18 05:45 Ondansetron HCl (Zofran) 4 mg Q4HR PRN IVP Nausea & Vomiting 06/13/18 01:00 07/09/18 21:29 Pantoprazole (Protonix) 40 mg DAILY ORAL 06/13/18 09:00 07/10/18 08:59 06/13/18 08:55 Sodium Chloride 550 ml @ 0 mls/hr Q0M IV 06/13/18 15:46 07/13/18 15:45 Spironolactone (Aldactone) 50 mg DAILY ORAL 06/13/18 09:00 07/10/18 08:59 06/13/18 08:55 Temazepam (Restoril) 15 mg HSPRN PRN ORAL Insomnia 06/13/18 22:30 06/18/18 22:29 06/14/18 02:07 Thiamine HCl (Vitamin B1) 100 mg DAILY ORAL 06/14/18 09:00 07/14/18 08:59 Mio Oviedo MD Jun 14, 2018 08:18
[2018-06-14 08:20] VITALS: BP 146/64
[2018-06-14] MEDS: Thiamine 100mg tab ORAL SCH (08:21)
[2018-06-14] MEDS: Aspirin Baby 81mg ORAL SCH (08:21)
[2018-06-14] MEDS: Docusate 100mg cap ORAL SCH ×3 (08:22→17:21)
[2018-06-14] MEDS: Spironolactone 50mg tab ORAL SCH (08:22)
[2018-06-14] MEDS: Carvedilol 12.5mg tab ORAL SCH ×2 (08:22→21:11)
[2018-06-14] MEDS: Vitamin B12 1000mcg/ml Inj SUBQ SCH (09:00)
[2018-06-14] MEDS: Acetaminophen 500mg (ES) tab ORAL PRN (09:08)
[2018-06-14] MEDS ORDERED: Vitamin B12 1000mcg/ml Inj SUBQ SCH ×2 (09:15→13:00)
[2018-06-14 12:00] VITALS: BP 140/64
--- NOTE | 2018-06-14 12:05 | Nephrology Progress Note ---
Assessment/Plan Problem List: (1) ATN (acute tubular necrosis) (2) HTN (hypertension) (3) Gout (4) Diabetes mellitus (5) Anemia (6) Obesity (BMI 30-39.9) Assessment Acute Renal Failure DM HTN Neuropathy Obesity Breast Ca s/p Lumpectomy s/p Hysterectomy GERD Gout Ej Fx 60% Anemia Plan one liter IV fluids DC Indomethacin Adjust BP meds Abraham Hold Diuretics urine studies Anemia rodriguez Add allopurinol Monitor renal parameters Avoid Nephrotoxics Thiamin Folic acid Ergocalciferol Subjective ROS Limited/Unobtainable: No Objective Objective Last 24 Hour Vital Signs Date Time Temp Pulse Resp B/P (MAP) Pulse Ox O2 Delivery O2 Flow Rate FiO2 06/14/18 09:00 Room Air 06/14/18 08:22 70 146/64 06/14/18 08:22 70 146/64 06/14/18 08:20 98.5 70 18 146/64 (91) 96 06/14/18 04:00 98.4 66 18 127/52 (77) 96 06/14/18 00:00 98.9 65 19 119/51 (73) 96 06/13/18 21:00 Room Air 06/13/18 20:26 63 131/66 06/13/18 20:21 98.3 63 20 131/66 (87) 98 06/13/18 16:00 97.8 68 19 136/61 (86) 98 Intake and Output 06/13/18 06/14/18 18:59 06:59 Intake Total 760 ml 880 ml Output Total 1050 ml 1300 ml Balance -290 ml -420 ml Intake Oral 760 ml 880 ml Output Urine Total 800 ml 1300 ml Stool Total 250 ml # Voids 2 # Bowel Movements 1 1 Laboratory Tests 06/14/18 03:20: Urine Eosinophils None seen 06/14/18 06:03: White Blood Count 12.8H, Red Blood Count 3.12L, Hemoglobin 9.2L, Hematocrit 27.8L, Mean Corpuscular Volume 89, Mean Corpuscular Hemoglobin 29.5, Mean Corpuscular Hemoglobin Concent 33.1, Red Cell Distribution Width 13.1, Platelet Count 311, Mean Platelet Volume 6.6, Neutrophils (%) (Auto) 63.8, Lymphocytes (% ) (Auto) 25.3, Monocytes (%) (Auto) 7.6, Eosinophils (%) (Auto) 2.2, Basophils ( %) (Auto) 1.1, Sodium Level 139, Potassium Level 4.8, Chloride Level 106, Carbon Dioxide Level 27, Anion Gap 7, Blood Urea Nitrogen 62H, Creatinine 2.3H, Estimat Glomerular Filtration Rate , Glucose Level 168H, Uric Acid 8.5H, Calcium Level 9.0, Phosphorus Level 3.9, Magnesium Level 2.2, Total Bilirubin 0.2, Aspartate Amino Transf (AST/SGOT) 14L, Alanine Aminotransferase (ALT/SGPT) 24, Alkaline Phosphatase 86, Pro-B-Type Natriuretic Peptide 71, Total Protein 7.5, Albumin 3.1L, Globulin 4.4, Albumin/Globulin Ratio 0.7L Height (Feet): 5 Height (Inches): 6.00 Weight (Pounds): 227 General Appearance: no apparent distress Objective no change Adithya Valladares MD Jun 14, 2018 12:05
--- NOTE | 2018-06-14 14:09 | Internal Med Progress Note ---
Subjective Physician Name Papa French Attending Physician Papa French MD Current Medications Medications (Trade) Dose Ordered Sig/Nick Route PRN Reason Start Time Stop Time Status Last Admin Dose Admin Acetaminophen (Tylenol) 500 mg Q4H PRN ORAL Mild Pain/Temp > 100.5 06/13/18 01:30 07/09/18 21:29 06/14/18 09:08 Allopurinol (Allopurinol) 300 mg DAILY ORAL 06/13/18 09:00 07/13/18 08:59 06/14/18 08:22 Amlodipine Besylate (Norvasc) 5 mg DAILY ORAL 06/13/18 09:00 07/10/18 08:59 06/14/18 08:22 Aspirin (ASA) 81 mg DAILY ORAL 06/13/18 09:00 07/10/18 08:59 06/14/18 08:21 Atorvastatin Calcium (Lipitor) 40 mg BEDTIME ORAL 06/13/18 21:00 07/09/18 22:29 06/13/18 20:26 Carvedilol (Coreg) 12.5 mg EVERY 12 HOURS ORAL 06/13/18 09:00 07/09/18 22:29 06/14/18 08:22 Colchicine (Colchicine) 0.6 mg Q8HR PRN ORAL For Pain 06/13/18 06:00 07/09/18 21:29 Cyanocobalamin (Vitamin B12) 1,000 mcg DAILY SUBQ 06/15/18 09:00 06/17/18 09:01 Dextrose (Dextrose 50%) 25 ml Q30M PRN IV Hypoglycemia 06/12/18 22:45 07/09/18 21:44 Dextrose (Dextrose 50%) 50 ml Q30M PRN IV Hypoglycemia 06/12/18 22:45 07/09/18 21:44 Diphenhydramine HCl (Benadryl) 25 mg BEDTIME ORAL 06/13/18 21:00 07/10/18 20:59 06/13/18 20:26 Docusate Sodium (Colace) 100 mg TID ORAL 06/13/18 09:00 07/09/18 22:29 06/14/18 08:22 Ergocalciferol (Drisdol) 50,000 intlu QWEEK ORAL 06/13/18 17:00 07/13/18 16:59 06/13/18 17:28 Escitalopram Oxalate (Lexapro) 10 mg DAILY ORAL 06/13/18 09:00 07/10/18 11:59 06/14/18 08:22 Folic Acid (Folate) 2 mg DAILY ORAL 06/13/18 15:44 07/13/18 15:43 06/14/18 08:22 Gabapentin (Neurontin) 100 mg THREE TIMES A DAY ORAL 06/14/18 13:00 07/14/18 12:59 Heparin Sodium (Porcine) (Heparin 5000 units/ml) 5,000 units EVERY 8 HOURS SUBQ 06/13/18 06:00 07/09/18 21:59 06/14/18 05:45 Insulin Aspart (NovoLOG) BEFORE MEALS AND HS SUBQ 06/13/18 06:30 07/10/18 06:29 06/14/18 11:54 Ondansetron HCl (Zofran) 4 mg Q4HR PRN IVP Nausea & Vomiting 06/13/18 01:00 07/09/18 21:29 Pantoprazole (Protonix) 40 mg DAILY ORAL 06/13/18 09:00 07/10/18 08:59 06/14/18 08:22 Sodium Chloride 550 ml @ 0 mls/hr Q0M IV 06/13/18 15:46 07/13/18 15:45 Sodium Chloride 1,000 ml @ 100 mls/hr Q10H IV 06/14/18 12:30 06/14/18 22:29 Spironolactone (Aldactone) 50 mg DAILY ORAL 06/13/18 09:00 07/10/18 08:59 06/14/18 08:22 Temazepam (Restoril) 15 mg HSPRN PRN ORAL Insomnia 06/13/18 22:30 06/18/18 22:29 06/14/18 02:07 Thiamine HCl (Vitamin B1) 100 mg DAILY ORAL 06/14/18 09:00 07/14/18 08:59 06/14/18 08:21 Allergies: Coded Allergies: No Known Allergies (Unverified , 09/17/12) Subjective awake, alert, responsive, NAD, + BM, Cr: 2.3 Objective Last Vital Signs Date Time Temp Pulse Resp B/P (MAP) Pulse Ox O2 Delivery O2 Flow Rate FiO2 06/14/18 12:00 98.1 65 19 140/64 (89) 100 06/14/18 09:00 Room Air Laboratory Tests Test 06/14/18 03:20 06/14/18 06:03 Urine Eosinophils None seen (NONE SEEN) White Blood Count 12.8 K/UL (4.8-10.8) H Red Blood Count 3.12 M/UL (4.20-5.40) L Hemoglobin 9.2 G/DL (12.0-16.0) L Hematocrit 27.8 % (37.0-47.0) L Mean Corpuscular Volume 89 FL (80-99) Mean Corpuscular Hemoglobin 29.5 PG (27.0-31.0) Mean Corpuscular Hemoglobin Concent 33.1 G/DL (32.0-36.0) Red Cell Distribution Width 13.1 % (11.6-14.8) Platelet Count 311 K/UL (150-450) Mean Platelet Volume 6.6 FL (6.5-10.1) Neutrophils (%) (Auto) 63.8 % (45.0-75.0) Lymphocytes (%) (Auto) 25.3 % (20.0-45.0) Monocytes (%) (Auto) 7.6 % (1.0-10.0) Eosinophils (%) (Auto) 2.2 % (0.0-3.0) Basophils (%) (Auto) 1.1 % (0.0-2.0) Sodium Level 139 MMOL/L (136-145) Potassium Level 4.8 MMOL/L (3.5-5.1) Chloride Level 106 MMOL/L (98-107) Carbon Dioxide Level 27 MMOL/L (21-32) Anion Gap 7 mmol/L (5-15) Blood Urea Nitrogen 62 mg/dL (7-18) H Creatinine 2.3 MG/DL (0.55-1.30) H Estimat Glomerular Filtration Rate mL/min (>60) Glucose Level 168 MG/DL (74-106) H Uric Acid 8.5 MG/DL (2.6-7.2) H Calcium Level 9.0 MG/DL (8.5-10.1) Phosphorus Level 3.9 MG/DL (2.5-4.9) Magnesium Level 2.2 MG/DL (1.8-2.4) Total Bilirubin 0.2 MG/DL (0.2-1.0) Aspartate Amino Transf (AST/SGOT) 14 U/L (15-37) L Alanine Aminotransferase (ALT/SGPT) 24 U/L (12-78) Alkaline Phosphatase 86 U/L (46-116) Pro-B-Type Natriuretic Peptide 71 pg/mL (0-125) Total Protein 7.5 G/DL (6.4-8.2) Albumin 3.1 G/DL (3.4-5.0) L Globulin 4.4 g/dL Albumin/Globulin Ratio 0.7 (1.0-2.7) L Intake and Output 06/13/18 06/14/18 19:00 07:00 Intake Total 760 ml 880 ml Output Total 1050 ml 1300 ml Balance -290 ml -420 ml Intake Oral 760 ml 880 ml Output Urine Total 800 ml 1300 ml Stool Total 250 ml # Voids 2 # Bowel Movements 1 1 Objective General: No acute distress, awake and alert HEENT: NCAT, sclera anicteric, PERRL, EOMI. Neck: Supple, no significant jugular venous distention, Lungs: Fair inspiratory effort, Decrease air on the bases, no Wheeze or Rales. Heart: Regular rate and rhythm, normal S1/S2, no murmurs Abdomen: soft, nontender, nondistended. Normoactive bowel sounds, Obesity Extremities: No Cyanosis , clubbing, +1 edema. Neuro: A&O x 3, Able to move all extremities Skin: warm, no rashes or lesions Psych: Normal mood and affect Assessment/Plan Assessment/Plan (1) Gout Assessment & Plan: Acute attack. Continue indomethacin (2) HTN (hypertension) Assessment & Plan: continue norvasc, aldactone and coreg (3) SVETLANA on CKD. (4) Hypercholesteremia Assessment & Plan: Continue lipitor (5) HX: breast cancer (6) Diabetes mellitus Assessment & Plan: Continue novolog sliding scale. (7) Leukocytosis Assessment & Plan: monitor labs Plan: DC planning to SNF soon Continue to monitor off abx as clinically improving Papa French MD Jun 14, 2018 14:09
[2018-06-14] MEDS ORDERED: Tubing IV Secondary IV ONE (15:29)
[2018-06-14] MEDS ORDERED: LR 1000ml ONE (15:29)
[2018-06-14] MEDS ORDERED: NS 275ml ONE (15:29)
[2018-06-14] MEDS ORDERED: NS 500ML ONE (15:29)
[2018-06-14 16:00] VITALS: BP 146/64
[2018-06-14 20:00] VITALS: BP 105/57
[2018-06-14] MEDS: Atorvastatin 20mg tab ORAL SCH (21:11)
[2018-06-15] VITALS: BP 144/72
[2018-06-15 04:00] VITALS: BP 127/75
[2018-06-15] MEDS: Heparin 5000 units/ml inj SUBQ SCH ×3 (05:54→21:10)
[2018-06-15] MEDS: NovoLOG Insulin Flexpen SUBQ SCH ×4 (06:32→21:09)
[2018-06-15 07:30] LABS: BASOPHILS % (AUTO) 0.9 % (0.0-2.0); EOSINOPHILS % (AUTO) 2.3 % (0.0-3.0); HEMATOCRIT 25.9 % (37.0-47.0); HEMOGLOBIN 8.4 G/DL (12.0-16.0); LYMPHOCYTES % (AUTO) 23.7 % (20.0-45.0); MEAN CORPUSCULAR VOLUME 89 FL (80-99); MONOCYTES % (AUTO) 8.1 % (1.0-10.0); NEUTROPHILS % (AUTO) 65.1 % (45.0-75.0); PLATELET COUNT 278 K/UL (150-450); RED BLOOD COUNT 2.93 M/UL (4.20-5.40); RED CELL DISTRIBUTION WIDTH 13.3 % (11.6-14.8); WHITE BLOOD COUNT 13.9 K/UL (4.8-10.8)
[2018-06-15 08:00] VITALS: BP 155/62
[2018-06-15 08:03] LABS: ALANINE AMINOTRANSFERASE 34 U/L (12-78); ALBUMIN/GLOBULIN RATIO 0.7 (1.0-2.7); ALKALINE PHOSPHATASE 77 U/L (46-116); ANION GAP 8 mmol/L (5-15); ASPARTATE AMINO TRANSFERASE 27 U/L (15-37); BILIRUBIN,TOTAL 0.4 MG/DL (0.2-1.0); BLOOD UREA NITROGEN 43 mg/dL (7-18); CALCIUM 9.1 MG/DL (8.5-10.1); CARBON DIOXIDE 25 MMOL/L (21-32); CHLORIDE 103 MMOL/L (98-107); CREATININE 1.7 MG/DL (0.55-1.30); PHOSPHORUS 3.5 MG/DL (2.5-4.9); SODIUM 136 MMOL/L (136-145)
--- NOTE | 2018-06-15 08:06 | Pulmonology Progress Note ---
Assessment/Plan Assessment/Plan ASSESSMENT BLE edema Acute renal failure Gout, probably gout flare Peripheral neuropathy Diabetes mellitus type 2 Hypertension Obesity Anemia B 12 deficiency Folate deficiency Major depressive disorder Anxiety History of breast cancer , status post lumpectomy PLAN OF CARE Med Surg floor initially on indomethacin and Lasix , both dc due to worsening renal failure allopurinol added and colchicine prn uric acid trending down monitor renal parameters and electrolytes, correct lytes prn, and avoid nephrotoxic follow-up with nephro recs creat down to admission level despite uric acid go down , pain BLE added small dose of Neurontin will need slowly uptitrated for effect as outpatient continue home meds, including Aspirin , statin and Aldactone BP management with CCB and BB, optimize further as needed DVT and GI prophylaxis BS management with SSI ECHO with PEF 60 % and RVSP of 35 c/w mild pulm HTN stool for C. difficile negative chest x-ray revealed cardiomegaly , but no acute process monitor H&H with goal to keep hemoglobin 7 , remains at baseline CEA WNL , stool for OB negative iron stable ,low B 12 and folate, started on supplements bowel regimen pain management supportive care PT RX continue, PT recommended SNF daughter at the bedside awaiting for disability case manager, charge nurse aware case discussed and evaluated by supervising physician Subjective Allergies: Coded Allergies: No Known Allergies (Unverified , 09/17/12) Subjective mild leucocytosis, afebrile pulse ox stable on RA uric acid trending down creat down to admission level still ++ pain BLE Objective Last 24 Hour Vital Signs Date Time Temp Pulse Resp B/P (MAP) Pulse Ox O2 Delivery O2 Flow Rate FiO2 06/15/18 04:00 98.4 60 18 127/75 (92) 97 06/15/18 00:00 98.2 63 18 144/72 (96) 97 06/14/18 21:42 Room Air 06/14/18 21:11 60 153/61 06/14/18 20:00 98.3 65 20 105/57 (73) 97 06/14/18 16:00 98.6 61 19 146/64 (91) 100 06/14/18 12:00 98.1 65 19 140/64 (89) 100 06/14/18 09:00 Room Air 06/14/18 08:22 70 146/64 06/14/18 08:22 70 146/64 06/14/18 08:20 98.5 70 18 146/64 (91) 96 Intake and Output 06/14/18 06/15/18 19:00 07:00 Intake Total 100 ml 460 ml Output Total 1100 ml Balance 100 ml -640 ml Intake Oral 360 ml IV Total 100 ml 100 ml Output Urine Total 1100 ml # Bowel Movements 1 1 Objective General Appearance: no acute distress, awake, alert, oriented, obese AA female HEENT: normocephalic, atraumatic, anicteric, mucous membranes moist Respiratory/Chest: lungs clear, no accessory muscle use Cardiovascular: normal peripheral pulses, normal rate, no JVD Abdomen: normal bowel sounds, soft, non tender - obese Extremities: pedal pulses normal, trace to +1 edema BLE Neurologic/Psychiatric: abnormal gait, alert, oriented x 3, responsive Musculoskeletal: normal muscle bulk Laboratory Tests 06/15/18 05:30: Urine Eosinophils [Pending] 06/15/18 06:25: White Blood Count 13.9H, Red Blood Count 2.93L, Hemoglobin 8.4L, Hematocrit 25.9L, Mean Corpuscular Volume 89, Mean Corpuscular Hemoglobin 28.8, Mean Corpuscular Hemoglobin Concent 32.5, Red Cell Distribution Width 13.3, Platelet Count 278, Mean Platelet Volume 6.6, Neutrophils (%) (Auto) 65.1, Lymphocytes (% ) (Auto) 23.7, Monocytes (%) (Auto) 8.1, Eosinophils (%) (Auto) 2.3, Basophils ( %) (Auto) 0.9, Sodium Level 136, Potassium Level 5.0, Chloride Level 103, Carbon Dioxide Level 25, Anion Gap 8, Blood Urea Nitrogen 43H, Creatinine 1.7H, Estimat Glomerular Filtration Rate , Glucose Level 135H, Uric Acid 6.5, Calcium Level 9.1, Phosphorus Level 3.5, Magnesium Level 2.0, Total Bilirubin 0.4, Aspartate Amino Transf (AST/SGOT) 27, Alanine Aminotransferase (ALT/SGPT) 34, Alkaline Phosphatase 77, Total Protein 7.3, Albumin 3.0L, Globulin 4.3, Albumin/ Globulin Ratio 0.7L, Vitamin B12 Level [Pending], Folate [Pending] Current Medications Medications (Trade) Dose Ordered Sig/Nick Route PRN Reason Start Time Stop Time Status Last Admin Dose Admin Acetaminophen (Tylenol) 500 mg Q4H PRN ORAL Mild Pain/Temp > 100.5 06/13/18 01:30 07/09/18 21:29 06/14/18 09:08 Allopurinol (Allopurinol) 300 mg DAILY ORAL 06/13/18 09:00 07/13/18 08:59 06/14/18 08:22 Amlodipine Besylate (Norvasc) 5 mg DAILY ORAL 06/13/18 09:00 07/10/18 08:59 06/14/18 08:22 Aspirin (ASA) 81 mg DAILY ORAL 06/13/18 09:00 07/10/18 08:59 06/14/18 08:21 Atorvastatin Calcium (Lipitor) 40 mg BEDTIME ORAL 06/13/18 21:00 07/09/18 22:29 06/14/18 21:11 Carvedilol (Coreg) 12.5 mg EVERY 12 HOURS ORAL 06/13/18 09:00 07/09/18 22:29 06/14/18 21:11 Colchicine (Colchicine) 0.6 mg Q8HR PRN ORAL For Pain 06/13/18 06:00 07/09/18 21:29 Cyanocobalamin (Vitamin B12) 1,000 mcg DAILY SUBQ 06/15/18 09:00 06/17/18 09:01 Dextrose (Dextrose 50%) 25 ml Q30M PRN IV Hypoglycemia 06/12/18 22:45 07/09/18 21:44 Dextrose (Dextrose 50%) 50 ml Q30M PRN IV Hypoglycemia 06/12/18 22:45 07/09/18 21:44 Diphenhydramine HCl (Benadryl) 25 mg BEDTIME ORAL 06/13/18 21:00 07/10/18 20:59 06/14/18 21:11 Docusate Sodium (Colace) 100 mg TID ORAL 06/13/18 09:00 07/09/18 22:29 06/14/18 17:21 Ergocalciferol (Drisdol) 50,000 intlu QWEEK ORAL 06/13/18 17:00 07/13/18 16:59 06/13/18 17:28 Escitalopram Oxalate (Lexapro) 10 mg DAILY ORAL 06/13/18 09:00 07/10/18 11:59 06/14/18 08:22 Folic Acid (Folate) 2 mg DAILY ORAL 06/13/18 15:44 07/13/18 15:43 06/14/18 08:22 Gabapentin (Neurontin) 100 mg THREE TIMES A DAY ORAL 06/14/18 13:00 07/14/18 12:59 06/14/18 17:21 Heparin Sodium (Porcine) (Heparin 5000 units/ml) 5,000 units EVERY 8 HOURS SUBQ 06/13/18 06:00 07/09/18 21:59 06/15/18 05:54 Insulin Aspart (NovoLOG) BEFORE MEALS AND HS SUBQ 06/13/18 06:30 07/10/18 06:29 06/15/18 06:32 Ondansetron HCl (Zofran) 4 mg Q4HR PRN IVP Nausea & Vomiting 06/13/18 01:00 07/09/18 21:29 Pantoprazole (Protonix) 40 mg DAILY ORAL 06/13/18 09:00 07/10/18 08:59 06/14/18 08:22 Sodium Chloride 550 ml @ 0 mls/hr Q0M IV 06/13/18 15:46 07/13/18 15:45 Spironolactone (Aldactone) 50 mg DAILY ORAL 06/13/18 09:00 07/10/18 08:59 06/14/18 08:22 Temazepam (Restoril) 15 mg HSPRN PRN ORAL Insomnia 06/13/18 22:30 06/18/18 22:29 06/14/18 02:07 Thiamine HCl (Vitamin B1) 100 mg DAILY ORAL 06/14/18 09:00 07/14/18 08:59 06/14/18 08:21 Angelina Alvarado NP Jun 15, 2018 08:06
[2018-06-15] MEDS ORDERED: Vitamin B12 1000mcg/ml Inj SUBQ SCH (09:00)
[2018-06-15] MEDS: Docusate 100mg cap ORAL SCH ×3 (09:20→17:52)
[2018-06-15] MEDS: Carvedilol 12.5mg tab ORAL SCH ×2 (09:20→21:09)
[2018-06-15] MEDS: Aspirin Baby 81mg ORAL SCH (09:20)
[2018-06-15] MEDS: Spironolactone 50mg tab ORAL SCH (09:20)
[2018-06-15] MEDS: Thiamine 100mg tab ORAL SCH (09:21)
[2018-06-15 12:00] VITALS: BP 138/59
--- NOTE | 2018-06-15 14:41 | Nephrology Progress Note ---
Assessment/Plan Problem List: (1) ATN (acute tubular necrosis) Assessment: Cr lower (2) HTN (hypertension) (3) Gout (4) Diabetes mellitus (5) Anemia (6) Obesity (BMI 30-39.9) Assessment Acute Renal Failure DM HTN Neuropathy Obesity Breast Ca s/p Lumpectomy s/p Hysterectomy GERD Gout Ej Fx 60% Anemia Plan one liter IV fluids DC Indomethacin Adjust BP meds Abraham Hold Diuretics urine studies Anemia rodriguez Add allopurinol Monitor renal parameters Avoid Nephrotoxics Thiamin Folic acid Ergocalciferol Subjective ROS Limited/Unobtainable: No Constitutional: Reports: malaise Objective Objective Last 24 Hour Vital Signs Date Time Temp Pulse Resp B/P (MAP) Pulse Ox O2 Delivery O2 Flow Rate FiO2 06/15/18 12:00 98.7 62 18 138/59 (85) 97 06/15/18 09:21 63 155/62 06/15/18 09:20 63 155/62 06/15/18 08:00 98.3 63 18 155/62 (93) 98 06/15/18 04:00 98.4 60 18 127/75 (92) 97 06/15/18 00:00 98.2 63 18 144/72 (96) 97 06/14/18 21:42 Room Air 06/14/18 21:11 60 153/61 06/14/18 20:00 98.3 65 20 105/57 (73) 97 06/14/18 16:00 98.6 61 19 146/64 (91) 100 Intake and Output 06/14/18 06/15/18 18:59 06:59 Intake Total 560 ml Output Total 1100 ml Balance -540 ml Intake Oral 360 ml IV Total 200 ml Output Urine Total 1100 ml # Bowel Movements 1 1 Laboratory Tests 06/15/18 05:30: Urine Eosinophils None seen 06/15/18 06:25: White Blood Count 13.9H, Red Blood Count 2.93L, Hemoglobin 8.4L, Hematocrit 25.9L, Mean Corpuscular Volume 89, Mean Corpuscular Hemoglobin 28.8, Mean Corpuscular Hemoglobin Concent 32.5, Red Cell Distribution Width 13.3, Platelet Count 278, Mean Platelet Volume 6.6, Neutrophils (%) (Auto) 65.1, Lymphocytes (% ) (Auto) 23.7, Monocytes (%) (Auto) 8.1, Eosinophils (%) (Auto) 2.3, Basophils ( %) (Auto) 0.9, Sodium Level 136, Potassium Level 5.0, Chloride Level 103, Carbon Dioxide Level 25, Anion Gap 8, Blood Urea Nitrogen 43H, Creatinine 1.7H, Estimat Glomerular Filtration Rate , Glucose Level 135H, Uric Acid 6.5, Calcium Level 9.1, Phosphorus Level 3.5, Magnesium Level 2.0, Total Bilirubin 0.4, Aspartate Amino Transf (AST/SGOT) 27, Alanine Aminotransferase (ALT/SGPT) 34, Alkaline Phosphatase 77, Total Protein 7.3, Albumin 3.0L, Globulin 4.3, Albumin/ Globulin Ratio 0.7L, Vitamin B12 Level > 2000H, Folate 17.7 Height (Feet): 5 Height (Inches): 6.00 Weight (Pounds): 227 General Appearance: no apparent distress Objective no change Adithya Valladares MD Jun 15, 2018 14:41
[2018-06-15 16:00] VITALS: BP 148/64
[2018-06-15] MEDS: Acetaminophen 500mg (ES) tab ORAL PRN (16:54)
[2018-06-15 20:00] VITALS: BP 139/55
[2018-06-15] MEDS: Atorvastatin 20mg tab ORAL SCH (21:08)
--- NOTE | 2018-06-15 22:46 | Internal Med Progress Note ---
Subjective Physician Name Papa French Attending Physician Papa French MD Current Medications Medications (Trade) Dose Ordered Sig/Nick Route PRN Reason Start Time Stop Time Status Last Admin Dose Admin Acetaminophen (Tylenol) 500 mg Q4H PRN ORAL Mild Pain/Temp > 100.5 06/13/18 01:30 07/09/18 21:29 06/15/18 16:54 Allopurinol (Zyloprim) 200 mg DAILY ORAL 06/16/18 09:00 07/13/18 08:59 Amlodipine Besylate (Norvasc) 5 mg DAILY ORAL 06/13/18 09:00 07/10/18 08:59 06/15/18 09:21 Aspirin (ASA) 81 mg DAILY ORAL 06/13/18 09:00 07/10/18 08:59 06/15/18 09:20 Atorvastatin Calcium (Lipitor) 20 mg BEDTIME ORAL 06/15/18 21:00 07/09/18 22:29 06/15/18 21:08 Carvedilol (Coreg) 12.5 mg EVERY 12 HOURS ORAL 06/13/18 09:00 07/09/18 22:29 06/15/18 21:09 Colchicine (Colchicine) 0.6 mg Q8HR PRN ORAL For Pain 06/13/18 06:00 07/09/18 21:29 Dextrose (Dextrose 50%) 25 ml Q30M PRN IV Hypoglycemia 06/12/18 22:45 07/09/18 21:44 Dextrose (Dextrose 50%) 50 ml Q30M PRN IV Hypoglycemia 06/12/18 22:45 07/09/18 21:44 Diphenhydramine HCl (Benadryl) 25 mg BEDTIME ORAL 06/13/18 21:00 07/10/18 20:59 06/15/18 21:09 Docusate Sodium (Colace) 100 mg TID ORAL 06/13/18 09:00 07/09/18 22:29 06/15/18 17:52 Ergocalciferol (Drisdol) 50,000 intlu QWEEK ORAL 06/13/18 17:00 07/13/18 16:59 06/13/18 17:28 Escitalopram Oxalate (Lexapro) 10 mg DAILY ORAL 06/13/18 09:00 07/10/18 11:59 06/15/18 09:20 Folic Acid (Folate) 1 mg DAILY ORAL 06/16/18 09:00 07/13/18 15:43 Gabapentin (Neurontin) 100 mg THREE TIMES A DAY ORAL 06/14/18 13:00 07/14/18 12:59 06/15/18 17:52 Heparin Sodium (Porcine) (Heparin 5000 units/ml) 5,000 units EVERY 8 HOURS SUBQ 06/13/18 06:00 07/09/18 21:59 06/15/18 21:10 Insulin Aspart (NovoLOG) BEFORE MEALS AND HS SUBQ 06/13/18 06:30 07/10/18 06:29 06/15/18 21:09 Ondansetron HCl (Zofran) 4 mg Q4HR PRN IVP Nausea & Vomiting 06/13/18 01:00 07/09/18 21:29 Pantoprazole (Protonix) 40 mg DAILY ORAL 06/13/18 09:00 07/10/18 08:59 06/15/18 09:20 Sodium Chloride 550 ml @ 0 mls/hr Q0M IV 06/13/18 15:46 07/13/18 15:45 Spironolactone (Aldactone) 50 mg DAILY ORAL 06/13/18 09:00 07/10/18 08:59 06/15/18 09:20 Temazepam (Restoril) 15 mg HSPRN PRN ORAL Insomnia 06/13/18 22:30 06/18/18 22:29 06/14/18 02:07 Thiamine HCl (Vitamin B1) 100 mg DAILY ORAL 06/14/18 09:00 07/14/18 08:59 06/15/18 09:21 Allergies: Coded Allergies: No Known Allergies (Unverified , 09/17/12) Subjective awake, alert, responsive, NAD, + BM, Cr: 1.7 Objective Last Vital Signs Date Time Temp Pulse Resp B/P (MAP) Pulse Ox O2 Delivery O2 Flow Rate FiO2 06/15/18 21:09 60 139/55 06/15/18 20:00 98.4 18 96 06/14/18 21:42 Room Air Laboratory Tests Test 06/15/18 05:30 06/15/18 06:25 Urine Eosinophils None seen (NONE SEEN) White Blood Count 13.9 K/UL (4.8-10.8) H Red Blood Count 2.93 M/UL (4.20-5.40) L Hemoglobin 8.4 G/DL (12.0-16.0) L Hematocrit 25.9 % (37.0-47.0) L Mean Corpuscular Volume 89 FL (80-99) Mean Corpuscular Hemoglobin 28.8 PG (27.0-31.0) Mean Corpuscular Hemoglobin Concent 32.5 G/DL (32.0-36.0) Red Cell Distribution Width 13.3 % (11.6-14.8) Platelet Count 278 K/UL (150-450) Mean Platelet Volume 6.6 FL (6.5-10.1) Neutrophils (%) (Auto) 65.1 % (45.0-75.0) Lymphocytes (%) (Auto) 23.7 % (20.0-45.0) Monocytes (%) (Auto) 8.1 % (1.0-10.0) Eosinophils (%) (Auto) 2.3 % (0.0-3.0) Basophils (%) (Auto) 0.9 % (0.0-2.0) Sodium Level 136 MMOL/L (136-145) Potassium Level 5.0 MMOL/L (3.5-5.1) Chloride Level 103 MMOL/L (98-107) Carbon Dioxide Level 25 MMOL/L (21-32) Anion Gap 8 mmol/L (5-15) Blood Urea Nitrogen 43 mg/dL (7-18) H Creatinine 1.7 MG/DL (0.55-1.30) H Estimat Glomerular Filtration Rate mL/min (>60) Glucose Level 135 MG/DL (74-106) H Uric Acid 6.5 MG/DL (2.6-7.2) Calcium Level 9.1 MG/DL (8.5-10.1) Phosphorus Level 3.5 MG/DL (2.5-4.9) Magnesium Level 2.0 MG/DL (1.8-2.4) Total Bilirubin 0.4 MG/DL (0.2-1.0) Aspartate Amino Transf (AST/SGOT) 27 U/L (15-37) Alanine Aminotransferase (ALT/SGPT) 34 U/L (12-78) Alkaline Phosphatase 77 U/L (46-116) Total Protein 7.3 G/DL (6.4-8.2) Albumin 3.0 G/DL (3.4-5.0) L Globulin 4.3 g/dL Albumin/Globulin Ratio 0.7 (1.0-2.7) L Vitamin B12 Level > 2000 PG/ML (193-986) H Folate 17.7 NG/ML (8.6-58.9) Intake and Output 06/14/18 06/15/18 19:00 07:00 Intake Total 100 ml 460 ml Output Total 1100 ml Balance 100 ml -640 ml Intake Oral 360 ml IV Total 100 ml 100 ml Output Urine Total 1100 ml # Bowel Movements 1 1 Objective General: No acute distress, awake and alert HEENT: NCAT, sclera anicteric, PERRL, EOMI. Neck: Supple, no significant jugular venous distention, Lungs: Fair inspiratory effort, Decrease air on the bases, no Wheeze or Rales. Heart: Regular rate and rhythm, normal S1/S2, no murmurs Abdomen: soft, nontender, nondistended. Normoactive bowel sounds, Obesity Extremities: No Cyanosis , clubbing, +1 edema. Neuro: A&O x 3, Able to move all extremities Skin: warm, no rashes or lesions Psych: Normal mood and affect Assessment/Plan Assessment/Plan (1) Gout Assessment & Plan: Acute attack. Continue indomethacin (2) HTN (hypertension) Assessment & Plan: continue norvasc, aldactone and coreg (3) SVETLANA on CKD. (4) Hypercholesteremia Assessment & Plan: Continue lipitor (5) HX: breast cancer (6) Diabetes mellitus Assessment & Plan: Continue novolog sliding scale. (7) Leukocytosis Assessment & Plan: monitor labs Plan: DC planning to SNF soon Continue to monitor off abx as clinically improving Papa French MD Jun 15, 2018 22:46
[2018-06-16] VITALS: BP 133/58
[2018-06-16 04:00] VITALS: BP 133/57
[2018-06-16] MEDS: Heparin 5000 units/ml inj SUBQ SCH ×3 (06:17→21:43)
[2018-06-16] MEDS: NovoLOG Insulin Flexpen SUBQ SCH ×4 (06:18→20:49)
[2018-06-16 08:00] VITALS: BP 129/52
[2018-06-16] MEDS: Allopurinol 100mg Tab ORAL SCH (09:05)
[2018-06-16] MEDS: Thiamine 100mg tab ORAL SCH (09:05)
[2018-06-16] MEDS: Docusate 100mg cap ORAL SCH ×3 (09:05→17:15)
[2018-06-16] MEDS: Aspirin Baby 81mg ORAL SCH (09:05)
[2018-06-16] MEDS: Spironolactone 50mg tab ORAL SCH (09:06)
[2018-06-16] MEDS: Carvedilol 12.5mg tab ORAL SCH ×2 (09:06→20:43)
[2018-06-16 12:00] VITALS: BP 136/63
--- NOTE | 2018-06-16 12:10 | Infectious Diseases Prog Note ---
Assessment/Plan Assessment/Plan Abx: None Assessment: B/l feet pain- suspect Gout flare; improving Leukocytosis- likely 2ry to s/p high dose steroid -cdff neg -CXR: Cardiomegaly. No definite acute process. Evidence of prior left axillary node dissection Afebrile SVETLANA, worsened, now improving Breast CA s/p lumpectomy gout GERD Obesity CHF HTN CVA DM2 HLD s/p hysterectomy ~30 yrs ago Plan: -Continue to monitor off abx as clinically improving -f/u cx -Monitor CBC/CMP, temperatures -aspiration precautions Thank you for this consultation. Will continue to follow along with you. Discussed with RN Subjective Allergies: Coded Allergies: No Known Allergies (Unverified , 09/17/12) Subjective afebrile wbc improving b/l 1st toe pain and swelling improving Objective Vital Signs Last 24 Hour Vital Signs Date Time Temp Pulse Resp B/P (MAP) Pulse Ox O2 Delivery O2 Flow Rate FiO2 06/16/18 09:06 61 129/52 06/16/18 09:04 61 129/52 06/16/18 08:00 98.6 61 18 129/52 (77) 98 06/16/18 08:00 Room Air 06/16/18 04:00 98.3 62 19 133/57 (82) 98 06/16/18 00:00 98.5 62 18 133/58 (83) 97 06/15/18 21:09 60 139/55 06/15/18 20:00 98.4 60 18 139/55 (83) 96 06/15/18 16:00 98.5 64 18 148/64 (92) 99 Height (Feet): 5 Height (Inches): 6.00 Weight (Pounds): 227 Objective GENERAL: Shows to be obese elderly female, in no apparent respiratory distress. NECK: Supple. No jugular venous distention. LUNGS: Clear to auscultation and percussion. CARDIAC: S1 is normal. S2 is normal. Regular rate and rhythm. No heaves, thrills, or gallops noted. ABDOMEN: Obese. Positive bowel sounds. Nontender. EXTREMITIES: There is no edema, clubbing, or cyanosis.b/l 1st toe swelling L>R and TTP, mild rednes on L 1st toe NEUROLOGICAL: She is awake, alert, responsive, and in no apparent respiratory distress. Current Medications Medications (Trade) Dose Ordered Sig/Nick Route PRN Reason Start Time Stop Time Status Last Admin Dose Admin Acetaminophen (Tylenol) 500 mg Q4H PRN ORAL Mild Pain/Temp > 100.5 06/13/18 01:30 07/09/18 21:29 06/15/18 16:54 Allopurinol (Zyloprim) 200 mg DAILY ORAL 06/16/18 09:00 07/13/18 08:59 06/16/18 09:05 Amlodipine Besylate (Norvasc) 5 mg DAILY ORAL 06/13/18 09:00 07/10/18 08:59 06/16/18 09:04 Aspirin (ASA) 81 mg DAILY ORAL 06/13/18 09:00 07/10/18 08:59 06/16/18 09:05 Atorvastatin Calcium (Lipitor) 20 mg BEDTIME ORAL 06/15/18 21:00 07/09/18 22:29 06/15/18 21:08 Carvedilol (Coreg) 12.5 mg EVERY 12 HOURS ORAL 06/13/18 09:00 07/09/18 22:29 06/16/18 09:06 Colchicine (Colchicine) 0.6 mg Q8HR PRN ORAL For Pain 06/13/18 06:00 07/09/18 21:29 Dextrose (Dextrose 50%) 25 ml Q30M PRN IV Hypoglycemia 06/12/18 22:45 07/09/18 21:44 Dextrose (Dextrose 50%) 50 ml Q30M PRN IV Hypoglycemia 06/12/18 22:45 07/09/18 21:44 Diphenhydramine HCl (Benadryl) 25 mg BEDTIME ORAL 06/13/18 21:00 07/10/18 20:59 06/15/18 21:09 Docusate Sodium (Colace) 100 mg TID ORAL 06/13/18 09:00 07/09/18 22:29 06/16/18 09:05 Ergocalciferol (Drisdol) 50,000 intlu QWEEK ORAL 06/13/18 17:00 07/13/18 16:59 06/13/18 17:28 Escitalopram Oxalate (Lexapro) 10 mg DAILY ORAL 06/13/18 09:00 07/10/18 11:59 06/16/18 09:06 Folic Acid (Folate) 1 mg DAILY ORAL 06/16/18 09:00 07/13/18 15:43 06/16/18 09:04 Gabapentin (Neurontin) 100 mg THREE TIMES A DAY ORAL 06/14/18 13:00 07/14/18 12:59 06/16/18 09:05 Heparin Sodium (Porcine) (Heparin 5000 units/ml) 5,000 units EVERY 8 HOURS SUBQ 06/13/18 06:00 07/09/18 21:59 06/16/18 06:17 Insulin Aspart (NovoLOG) BEFORE MEALS AND HS SUBQ 06/13/18 06:30 07/10/18 06:29 06/16/18 06:18 Ondansetron HCl (Zofran) 4 mg Q4HR PRN IVP Nausea & Vomiting 06/13/18 01:00 07/09/18 21:29 Pantoprazole (Protonix) 40 mg DAILY ORAL 06/13/18 09:00 07/10/18 08:59 06/16/18 09:06 Sodium Chloride 550 ml @ 0 mls/hr Q0M IV 06/13/18 15:46 07/13/18 15:45 Spironolactone (Aldactone) 50 mg DAILY ORAL 06/13/18 09:00 07/10/18 08:59 06/16/18 09:06 Temazepam (Restoril) 15 mg HSPRN PRN ORAL Insomnia 06/13/18 22:30 06/18/18 22:29 06/14/18 02:07 Thiamine HCl (Vitamin B1) 100 mg DAILY ORAL 06/14/18 09:00 07/14/18 08:59 06/16/18 09:05 Kathryn Hernandez M.D. Jun 16, 2018 12:10
--- NOTE | 2018-06-16 12:28 | Nephrology Progress Note ---
Assessment/Plan Problem List: (1) ATN (acute tubular necrosis) Assessment: Cr lower (2) HTN (hypertension) (3) Gout (4) Diabetes mellitus (5) Anemia (6) Obesity (BMI 30-39.9) Assessment Acute Renal Failure DM HTN Neuropathy Obesity Breast Ca s/p Lumpectomy s/p Hysterectomy GERD Gout Ej Fx 60% Anemia Plan one liter IV fluids DC Indomethacin Adjust BP meds Abraham Hold Diuretics urine studies Anemia rodriguez Add allopurinol Monitor renal parameters Avoid Nephrotoxics Thiamin Folic acid Ergocalciferol Subjective ROS Limited/Unobtainable: No Constitutional: Reports: weakness Objective Objective Last 24 Hour Vital Signs Date Time Temp Pulse Resp B/P (MAP) Pulse Ox O2 Delivery O2 Flow Rate FiO2 06/16/18 09:06 61 129/52 06/16/18 09:04 61 129/52 06/16/18 08:00 98.6 61 18 129/52 (77) 98 06/16/18 08:00 Room Air 06/16/18 04:00 98.3 62 19 133/57 (82) 98 06/16/18 00:00 98.5 62 18 133/58 (83) 97 06/15/18 21:09 60 139/55 06/15/18 20:00 98.4 60 18 139/55 (83) 96 06/15/18 16:00 98.5 64 18 148/64 (92) 99 Intake and Output 06/15/18 06/16/18 19:00 07:00 Intake Total 720 ml Output Total 850 ml 1500 ml Balance -130 ml -1500 ml Intake Oral 720 ml Output Urine Total 850 ml 1500 ml Height (Feet): 5 Height (Inches): 6.00 Weight (Pounds): 227 General Appearance: no apparent distress Objective no change Adithya Valladares MD Jun 16, 2018 12:28
[2018-06-16] MEDS ORDERED: LEXAPRO10 MG ORAL (14:56)
[2018-06-16] MEDS ORDERED: ALLOPURINOL100 M1 ORAL (14:56)
[2018-06-16] MEDS ORDERED: NOVOLOG100 UNITS1 SUBQ (14:56)
[2018-06-16] MEDS ORDERED: GABAPENTIN100 MG ORAL (14:56)
--- NOTE | 2018-06-16 14:57 | Pulmonology Progress Note ---
Assessment/Plan Problems: (1) ACS (acute coronary syndrome) (2) ATN (acute tubular necrosis) (3) Decreased activities of daily living (ADL) (4) Diabetes mellitus (5) Neuropathy (6) History of hypertension Assessment/Plan less pain pain cardiology note appreciated symptomatic treatment renal w/u on colchicine sliding scale f/u WBC med/surg dc to [facility] today, med/recon done Subjective ROS Limited/Unobtainable: No Constitutional: Reports: no symptoms HEENT: Repors: no symptoms Respiratory: Reports: no symptoms Allergies: Coded Allergies: No Known Allergies (Unverified , 09/17/12) Objective Last 24 Hour Vital Signs Date Time Temp Pulse Resp B/P (MAP) Pulse Ox O2 Delivery O2 Flow Rate FiO2 06/16/18 12:00 98.8 60 19 136/63 (87) 98 06/16/18 09:06 61 129/52 06/16/18 09:04 61 129/52 06/16/18 08:00 98.6 61 18 129/52 (77) 98 06/16/18 08:00 Room Air 06/16/18 04:00 98.3 62 19 133/57 (82) 98 06/16/18 00:00 98.5 62 18 133/58 (83) 97 06/15/18 21:09 60 139/55 06/15/18 20:00 98.4 60 18 139/55 (83) 96 06/15/18 16:00 98.5 64 18 148/64 (92) 99 Intake and Output 06/15/18 06/16/18 19:00 07:00 Intake Total 720 ml Output Total 850 ml 1500 ml Balance -130 ml -1500 ml Intake Oral 720 ml Output Urine Total 850 ml 1500 ml Objective General Appearance: WD/WN Lines, tubes and drains: peripheral HEENT: normocephalic Neck: non-tender Respiratory/Chest: chest wall non-tender, lungs clear Cardiovascular/Chest: normal peripheral pulses Abdomen: normal bowel sounds Genitourinary/Rectal: normal genital exam Extremities: normal range of motion, non-pitting Current Medications Medications (Trade) Dose Ordered Sig/Nick Route PRN Reason Start Time Stop Time Status Last Admin Dose Admin Acetaminophen (Tylenol) 500 mg Q4H PRN ORAL Mild Pain/Temp > 100.5 06/13/18 01:30 07/09/18 21:29 06/15/18 16:54 Allopurinol (Zyloprim) 200 mg DAILY ORAL 06/16/18 09:00 07/13/18 08:59 06/16/18 09:05 Amlodipine Besylate (Norvasc) 5 mg DAILY ORAL 06/13/18 09:00 07/10/18 08:59 06/16/18 09:04 Aspirin (ASA) 81 mg DAILY ORAL 06/13/18 09:00 07/10/18 08:59 06/16/18 09:05 Atorvastatin Calcium (Lipitor) 20 mg BEDTIME ORAL 06/15/18 21:00 07/09/18 22:29 06/15/18 21:08 Carvedilol (Coreg) 12.5 mg EVERY 12 HOURS ORAL 06/13/18 09:00 07/09/18 22:29 06/16/18 09:06 Colchicine (Colchicine) 0.6 mg Q8HR PRN ORAL For Pain 06/13/18 06:00 07/09/18 21:29 Dextrose (Dextrose 50%) 25 ml Q30M PRN IV Hypoglycemia 06/12/18 22:45 07/09/18 21:44 Dextrose (Dextrose 50%) 50 ml Q30M PRN IV Hypoglycemia 06/12/18 22:45 07/09/18 21:44 Diphenhydramine HCl (Benadryl) 25 mg BEDTIME ORAL 06/13/18 21:00 07/10/18 20:59 06/15/18 21:09 Docusate Sodium (Colace) 100 mg TID ORAL 06/13/18 09:00 07/09/18 22:29 06/16/18 12:15 Ergocalciferol (Drisdol) 50,000 intlu QWEEK ORAL 06/13/18 17:00 07/13/18 16:59 06/13/18 17:28 Escitalopram Oxalate (Lexapro) 10 mg DAILY ORAL 06/13/18 09:00 07/10/18 11:59 06/16/18 09:06 Folic Acid (Folate) 1 mg DAILY ORAL 06/16/18 09:00 07/13/18 15:43 06/16/18 09:04 Gabapentin (Neurontin) 100 mg THREE TIMES A DAY ORAL 06/14/18 13:00 07/14/18 12:59 12/17/18 12:15 Heparin Sodium (Porcine) (Heparin 5000 units/ml) 5,000 units EVERY 8 HOURS SUBQ 06/13/18 06:00 07/09/18 21:59 06/16/18 13:05 Insulin Aspart (NovoLOG) BEFORE MEALS AND HS SUBQ 06/13/18 06:30 07/10/18 06:29 06/16/18 12:14 Ondansetron HCl (Zofran) 4 mg Q4HR PRN IVP Nausea & Vomiting 06/13/18 01:00 07/09/18 21:29 Pantoprazole (Protonix) 40 mg DAILY ORAL 06/13/18 09:00 07/10/18 08:59 06/16/18 09:06 Sodium Chloride 550 ml @ 0 mls/hr Q0M IV 06/13/18 15:46 07/13/18 15:45 Spironolactone (Aldactone) 50 mg DAILY ORAL 06/13/18 09:00 07/10/18 08:59 06/16/18 09:06 Temazepam (Restoril) 15 mg HSPRN PRN ORAL Insomnia 06/13/18 22:30 06/18/18 22:29 06/14/18 02:07 Thiamine HCl (Vitamin B1) 100 mg DAILY ORAL 06/14/18 09:00 07/14/18 08:59 06/16/18 09:05 Calli Lux MD Jun 16, 2018 14:57
[2018-06-16 15:47] VITALS: BP 138/68
--- NOTE | 2018-06-16 19:27 | Internal Med Progress Note ---
Subjective Date of Service: Jun 16, 2018 Physician Name Bk Kellogg Attending Physician Papa French MD Current Medications Medications (Trade) Dose Ordered Sig/Nick Route PRN Reason Start Time Stop Time Status Last Admin Dose Admin Acetaminophen (Tylenol) 500 mg Q4H PRN ORAL Mild Pain/Temp > 100.5 06/13/18 01:30 07/09/18 21:29 06/15/18 16:54 Allopurinol (Zyloprim) 200 mg DAILY ORAL 06/16/18 09:00 07/13/18 08:59 06/16/18 09:05 Amlodipine Besylate (Norvasc) 5 mg DAILY ORAL 06/13/18 09:00 07/10/18 08:59 06/16/18 09:04 Aspirin (ASA) 81 mg DAILY ORAL 06/13/18 09:00 07/10/18 08:59 06/16/18 09:05 Atorvastatin Calcium (Lipitor) 20 mg BEDTIME ORAL 06/15/18 21:00 07/09/18 22:29 06/15/18 21:08 Carvedilol (Coreg) 12.5 mg EVERY 12 HOURS ORAL 06/13/18 09:00 07/09/18 22:29 06/16/18 09:06 Colchicine (Colchicine) 0.6 mg Q8HR PRN ORAL For Pain 06/13/18 06:00 07/09/18 21:29 Dextrose (Dextrose 50%) 25 ml Q30M PRN IV Hypoglycemia 06/12/18 22:45 07/09/18 21:44 Dextrose (Dextrose 50%) 50 ml Q30M PRN IV Hypoglycemia 06/12/18 22:45 07/09/18 21:44 Diphenhydramine HCl (Benadryl) 25 mg BEDTIME ORAL 06/13/18 21:00 07/10/18 20:59 06/15/18 21:09 Docusate Sodium (Colace) 100 mg TID ORAL 06/13/18 09:00 07/09/18 22:29 06/16/18 17:15 Ergocalciferol (Drisdol) 50,000 intlu QWEEK ORAL 06/13/18 17:00 07/13/18 16:59 06/13/18 17:28 Escitalopram Oxalate (Lexapro) 10 mg DAILY ORAL 06/13/18 09:00 07/10/18 11:59 06/16/18 09:06 Folic Acid (Folate) 1 mg DAILY ORAL 06/16/18 09:00 07/13/18 15:43 06/16/18 09:04 Gabapentin (Neurontin) 100 mg THREE TIMES A DAY ORAL 06/14/18 13:00 07/14/18 12:59 06/16/18 17:15 Heparin Sodium (Porcine) (Heparin 5000 units/ml) 5,000 units EVERY 8 HOURS SUBQ 06/13/18 06:00 07/09/18 21:59 06/16/18 13:05 Insulin Aspart (NovoLOG) BEFORE MEALS AND HS SUBQ 06/13/18 06:30 07/10/18 06:29 06/16/18 17:17 Ondansetron HCl (Zofran) 4 mg Q4HR PRN IVP Nausea & Vomiting 06/13/18 01:00 07/09/18 21:29 Pantoprazole (Protonix) 40 mg DAILY ORAL 06/13/18 09:00 07/10/18 08:59 06/16/18 09:06 Sodium Chloride 550 ml @ 0 mls/hr Q0M IV 06/13/18 15:46 07/13/18 15:45 Spironolactone (Aldactone) 50 mg DAILY ORAL 06/13/18 09:00 07/10/18 08:59 06/16/18 09:06 Temazepam (Restoril) 15 mg HSPRN PRN ORAL Insomnia 06/13/18 22:30 06/18/18 22:29 06/14/18 02:07 Thiamine HCl (Vitamin B1) 100 mg DAILY ORAL 06/14/18 09:00 07/14/18 08:59 06/16/18 09:05 Allergies: Coded Allergies: No Known Allergies (Unverified , 09/17/12) ROS Limited/Unobtainable: No Constitutional: Reports: no symptoms HEENT: Reports: no symptoms Cardiovascular: Reports: no symptoms Respiratory: Reports: no symptoms Gastrointestinal/Abdominal: Reports: no symptoms Genitourinary: Reports: no symptoms Neurologic/Psychiatric: Reports: no symptoms Subjective 72 YO F admitted with bilat lower ext pain. Now leukocytosis and acute renal insufficiency. Cover for Int Ambroc[facility]-Dr French Objective Last Vital Signs Date Time Temp Pulse Resp B/P (MAP) Pulse Ox O2 Delivery O2 Flow Rate FiO2 06/16/18 15:47 99.3 64 18 138/68 (91) 98 06/16/18 08:00 Room Air Intake and Output 06/15/18 06/16/18 18:59 06:59 Intake Total 720 ml Output Total 850 ml 1500 ml Balance -130 ml -1500 ml Intake Oral 720 ml Output Urine Total 850 ml 1500 ml Objective General Appearance: WD/WN, no apparent distress, alert EENT: PERRL/EOMI, normal ENT inspection, TMs normal Neck: non-tender, normal alignment, supple, normal inspection Cardiovascular: normal peripheral pulses, normal rate, regular rhythm, no gallop/murmur, no JVD Respiratory/Chest: chest wall non-tender, lungs clear, normal breath sounds, no respiratory distress, no accessory muscle use Abdomen: normal bowel sounds, non tender, soft, no organomegaly, no mass Extremities: normal range of motion 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 Continue indomethacin and solumedrol (2) HTN (hypertension) Assessment & Plan: continue norvasc, aldactone and coreg (3) Renal insufficiency (4) Hypercholesteremia Assessment & Plan: Continue lipitor (5) HX: breast cancer (6) Diabetes mellitus Assessment & Plan: Continue novolog sliding scale. (7) Leukocytosis Assessment & Plan: See ID Bk Lopes MD Jun 16, 2018 19:27
[2018-06-16 20:00] VITALS: BP 133/63
[2018-06-16] MEDS: Atorvastatin 20mg tab ORAL SCH (20:38)
[2018-06-17 00:51] VITALS: BP 129/67
[2018-06-17 04:00] VITALS: BP 119/50
[2018-06-17 04:49] VITALS: BP 119/50
[2018-06-17] MEDS: Heparin 5000 units/ml inj SUBQ SCH ×2 (05:35→13:11)
[2018-06-17] MEDS: NovoLOG Insulin Flexpen SUBQ SCH ×3 (05:44→16:49)
[2018-06-17 06:06] LABS: BASOPHILS % (AUTO) 0.8 % (0.0-2.0); EOSINOPHILS % (AUTO) 2.7 % (0.0-3.0); HEMATOCRIT 25.3 % (37.0-47.0); HEMOGLOBIN 8.2 G/DL (12.0-16.0); LYMPHOCYTES % (AUTO) 22.1 % (20.0-45.0); MEAN CORPUSCULAR VOLUME 90 FL (80-99); NEUTROPHILS % (AUTO) 67.5 % (45.0-75.0); PLATELET COUNT 298 K/UL (150-450); RED CELL DISTRIBUTION WIDTH 13.5 % (11.6-14.8); WHITE BLOOD COUNT 13.7 K/UL (4.8-10.8)
[2018-06-17 06:43] LABS: ALANINE AMINOTRANSFERASE 56 U/L (12-78); ALBUMIN 2.9 G/DL (3.4-5.0); ALBUMIN/GLOBULIN RATIO 0.6 (1.0-2.7); ALKALINE PHOSPHATASE 79 U/L (46-116); ANION GAP 7 mmol/L (5-15); ASPARTATE AMINO TRANSFERASE 32 U/L (15-37); BILIRUBIN,TOTAL 0.2 MG/DL (0.2-1.0); BLOOD UREA NITROGEN 40 mg/dL (7-18); CALCIUM 9.2 MG/DL (8.5-10.1); CARBON DIOXIDE 27 MMOL/L (21-32); CHLORIDE 103 MMOL/L (98-107); CREATININE 1.8 MG/DL (0.55-1.30); PHOSPHORUS 4.4 MG/DL (2.5-4.9); POTASSIUM 4.9 MMOL/L (3.5-5.1); SODIUM 136 MMOL/L (136-145)
[2018-06-17 08:00] VITALS: BP 131/74
[2018-06-17] MEDS: Carvedilol 12.5mg tab ORAL SCH (10:01)
[2018-06-17] MEDS: Docusate 100mg cap ORAL SCH ×3 (10:01→18:50)
[2018-06-17] MEDS: Aspirin Baby 81mg ORAL SCH (10:01)
[2018-06-17] MEDS: Spironolactone 50mg tab ORAL SCH (10:01)
[2018-06-17] MEDS: Thiamine 100mg tab ORAL SCH (10:02)
[2018-06-17] MEDS: Allopurinol 100mg Tab ORAL SCH (10:02)
[2018-06-17 12:00] VITALS: BP 143/60
--- NOTE | 2018-06-17 12:25 | Pulmonology Progress Note ---
Assessment/Plan Problems: (1) Gout (2) ACS (acute coronary syndrome) (3) ATN (acute tubular necrosis) (4) Decreased activities of daily living (ADL) (5) Diabetes mellitus (6) Neuropathy (7) History of hypertension (8) HX: breast cancer (9) Major depression, recurrent Assessment/Plan improving slowly less pain pain cardiology note appreciated symptomatic treatment renal w/u on colchicine sliding scale f/u WBC med/surg dc to [facility] today, med/recon done Subjective ROS Limited/Unobtainable: No Constitutional: Reports: no symptoms HEENT: Repors: no symptoms Respiratory: Reports: no symptoms Cardiovascular: Reports: no symptoms Gastrointestinal/Abdominal: Reports: no symptoms Allergies: Coded Allergies: No Known Allergies (Unverified , 09/17/12) Objective Last 24 Hour Vital Signs Date Time Temp Pulse Resp B/P (MAP) Pulse Ox O2 Delivery O2 Flow Rate FiO2 06/17/18 12:00 98.0 55 19 143/60 (87) 98 06/17/18 10:02 63 131/74 06/17/18 10:01 63 131/74 06/17/18 09:00 Room Air 06/17/18 08:00 98.4 63 18 131/74 (93) 96 06/17/18 04:49 98.5 63 18 119/50 (73) 96 06/17/18 04:00 98.5 63 18 119/50 (73) 96 06/17/18 00:51 98.6 60 17 129/67 (87) 98 06/16/18 21:00 Room Air 06/16/18 20:43 63 133/63 06/16/18 20:00 98.5 63 17 133/63 (86) 98 06/16/18 15:47 99.3 64 18 138/68 (91) 98 Intake and Output 06/16/18 06/17/18 19:00 07:00 Intake Total 1000 ml 480 ml Output Total 1650 ml 800 ml Balance -650 ml -320 ml Intake Oral 1000 ml 480 ml Output Urine Total 1650 ml 800 ml # Voids 1 Objective General Appearance: WD/WN Lines, tubes and drains: peripheral HEENT: normocephalic Neck: non-tender Respiratory/Chest: chest wall non-tender, lungs clear Cardiovascular/Chest: normal peripheral pulses Abdomen: normal bowel sounds Genitourinary/Rectal: normal genital exam Extremities: normal range of motion, non-pitting Laboratory Tests 06/17/18 04:50: White Blood Count 13.7H, Red Blood Count 2.80L, Hemoglobin 8.2L, Hematocrit 25.3L, Mean Corpuscular Volume 90, Mean Corpuscular Hemoglobin 29.4, Mean Corpuscular Hemoglobin Concent 32.6, Red Cell Distribution Width 13.5, Platelet Count 298, Mean Platelet Volume 6.4L, Neutrophils (%) (Auto) 67.5, Lymphocytes ( %) (Auto) 22.1, Monocytes (%) (Auto) 7.0, Eosinophils (%) (Auto) 2.7, Basophils (%) (Auto) 0.8, Sodium Level 136, Potassium Level 4.9, Chloride Level 103, Carbon Dioxide Level 27, Anion Gap 7, Blood Urea Nitrogen 40H, Creatinine 1.8H, Estimat Glomerular Filtration Rate , Glucose Level 149H, Uric Acid 5.3, Calcium Level 9.2, Phosphorus Level 4.4, Magnesium Level 2.1, Total Bilirubin 0.2, Aspartate Amino Transf (AST/SGOT) 32, Alanine Aminotransferase (ALT/SGPT) 56, Alkaline Phosphatase 79, C-Reactive Protein, Quantitative 1.5H, Pro-B-Type Natriuretic Peptide 48, Total Protein 7.4, Albumin 2.9L, Globulin 4.5, Albumin/ Globulin Ratio 0.6L Current Medications Medications (Trade) Dose Ordered Sig/Nick Route PRN Reason Start Time Stop Time Status Last Admin Dose Admin Acetaminophen (Tylenol) 500 mg Q4H PRN ORAL Mild Pain/Temp > 100.5 06/13/18 01:30 07/09/18 21:29 06/15/18 16:54 Allopurinol (Zyloprim) 200 mg DAILY ORAL 06/16/18 09:00 07/13/18 08:59 06/17/18 10:02 Amlodipine Besylate (Norvasc) 5 mg DAILY ORAL 06/13/18 09:00 07/10/18 08:59 06/17/18 10:02 Aspirin (ASA) 81 mg DAILY ORAL 06/13/18 09:00 07/10/18 08:59 06/17/18 10:01 Atorvastatin Calcium (Lipitor) 20 mg BEDTIME ORAL 06/15/18 21:00 07/09/18 22:29 06/16/18 20:38 Carvedilol (Coreg) 12.5 mg EVERY 12 HOURS ORAL 06/13/18 09:00 07/09/18 22:29 06/17/18 10:01 Colchicine (Colchicine) 0.6 mg Q8HR PRN ORAL For Pain 06/13/18 06:00 07/09/18 21:29 06/16/18 20:38 Dextrose (Dextrose 50%) 25 ml Q30M PRN IV Hypoglycemia 06/12/18 22:45 07/09/18 21:44 Dextrose (Dextrose 50%) 50 ml Q30M PRN IV Hypoglycemia 06/12/18 22:45 07/09/18 21:44 Diphenhydramine HCl (Benadryl) 25 mg BEDTIME ORAL 06/13/18 21:00 07/10/18 20:59 06/16/18 20:38 Docusate Sodium (Colace) 100 mg TID ORAL 06/13/18 09:00 07/09/18 22:29 06/17/18 10:01 Ergocalciferol (Drisdol) 50,000 intlu QWEEK ORAL 06/13/18 17:00 07/13/18 16:59 06/13/18 17:28 Escitalopram Oxalate (Lexapro) 10 mg DAILY ORAL 06/13/18 09:00 07/10/18 11:59 06/17/18 10:02 Folic Acid (Folate) 1 mg DAILY ORAL 06/16/18 09:00 07/13/18 15:43 06/17/18 10:01 Gabapentin (Neurontin) 100 mg THREE TIMES A DAY ORAL 06/14/18 13:00 07/14/18 12:59 06/17/18 10:01 Heparin Sodium (Porcine) (Heparin 5000 units/ml) 5,000 units EVERY 8 HOURS SUBQ 06/13/18 06:00 07/09/18 21:59 06/17/18 05:35 Insulin Aspart (NovoLOG) BEFORE MEALS AND HS SUBQ 06/13/18 06:30 07/10/18 06:29 06/17/18 11:51 Ondansetron HCl (Zofran) 4 mg Q4HR PRN IVP Nausea & Vomiting 06/13/18 01:00 1/9/19 21:29 Pantoprazole (Protonix) 40 mg DAILY ORAL 06/13/18 09:00 07/10/18 08:59 06/17/18 10:01 Sodium Chloride 550 ml @ 0 mls/hr Q0M IV 06/13/18 15:46 07/13/18 15:45 Spironolactone (Aldactone) 50 mg DAILY ORAL 06/13/18 09:00 07/10/18 08:59 06/17/18 10:01 Temazepam (Restoril) 15 mg HSPRN PRN ORAL Insomnia 06/13/18 22:30 06/18/18 22:29 06/14/18 02:07 Thiamine HCl (Vitamin B1) 100 mg DAILY ORAL 06/14/18 09:00 07/14/18 08:59 06/17/18 10:02 Calli Lux MD Jun 17, 2018 12:25
--- NOTE | 2018-06-17 12:27 | Nephrology Progress Note ---
Assessment/Plan Problem List: (1) ATN (acute tubular necrosis) Assessment: Cr lower (2) HTN (hypertension) (3) Gout (4) Diabetes mellitus (5) Anemia (6) Obesity (BMI 30-39.9) Assessment Acute Renal Failure DM HTN Neuropathy Obesity Breast Ca s/p Lumpectomy s/p Hysterectomy GERD Gout Ej Fx 60% Anemia Plan one liter IV fluids DC Indomethacin Adjust BP meds Abraham Hold Diuretics urine studies Anemia rodriguez Add allopurinol Monitor renal parameters Avoid Nephrotoxics Thiamin Folic acid Ergocalciferol Objective Objective Last 24 Hour Vital Signs Date Time Temp Pulse Resp B/P (MAP) Pulse Ox O2 Delivery O2 Flow Rate FiO2 06/17/18 12:00 98.0 55 19 143/60 (87) 98 06/17/18 10:02 63 131/74 06/17/18 10:01 63 131/74 06/17/18 09:00 Room Air 06/17/18 08:00 98.4 63 18 131/74 (93) 96 06/17/18 04:49 98.5 63 18 119/50 (73) 96 06/17/18 04:00 98.5 63 18 119/50 (73) 96 06/17/18 00:51 98.6 60 17 129/67 (87) 98 06/16/18 21:00 Room Air 06/16/18 20:43 63 133/63 06/16/18 20:00 98.5 63 17 133/63 (86) 98 06/16/18 15:47 99.3 64 18 138/68 (91) 98 Intake and Output 06/16/18 06/17/18 19:00 07:00 Intake Total 1000 ml 480 ml Output Total 1650 ml 800 ml Balance -650 ml -320 ml Intake Oral 1000 ml 480 ml Output Urine Total 1650 ml 800 ml # Voids 1 Laboratory Tests 06/17/18 04:50: White Blood Count 13.7H, Red Blood Count 2.80L, Hemoglobin 8.2L, Hematocrit 25.3L, Mean Corpuscular Volume 90, Mean Corpuscular Hemoglobin 29.4, Mean Corpuscular Hemoglobin Concent 32.6, Red Cell Distribution Width 13.5, Platelet Count 298, Mean Platelet Volume 6.4L, Neutrophils (%) (Auto) 67.5, Lymphocytes ( %) (Auto) 22.1, Monocytes (%) (Auto) 7.0, Eosinophils (%) (Auto) 2.7, Basophils (%) (Auto) 0.8, Sodium Level 136, Potassium Level 4.9, Chloride Level 103, Carbon Dioxide Level 27, Anion Gap 7, Blood Urea Nitrogen 40H, Creatinine 1.8H, Estimat Glomerular Filtration Rate , Glucose Level 149H, Uric Acid 5.3, Calcium Level 9.2, Phosphorus Level 4.4, Magnesium Level 2.1, Total Bilirubin 0.2, Aspartate Amino Transf (AST/SGOT) 32, Alanine Aminotransferase (ALT/SGPT) 56, Alkaline Phosphatase 79, C-Reactive Protein, Quantitative 1.5H, Pro-B-Type Natriuretic Peptide 48, Total Protein 7.4, Albumin 2.9L, Globulin 4.5, Albumin/ Globulin Ratio 0.6L Height (Feet): 5 Height (Inches): 6.00 Weight (Pounds): 227 Objective no change Adithya Valladares MD Jun 17, 2018 12:27
--- NOTE | 2018-06-17 12:51 | Infectious Diseases Prog Note ---
Assessment/Plan Assessment/Plan Abx: None Assessment: B/l feet pain- suspect Gout flare; improving Leukocytosis- likely 2ry to s/p high dose steroid -cdff neg -CXR: Cardiomegaly. No definite acute process. Evidence of prior left axillary node dissection Afebrile SVETLANA, worsened, now improving Breast CA s/p lumpectomy gout GERD Obesity CHF HTN CVA DM2 HLD s/p hysterectomy ~30 yrs ago Plan: -Continue to monitor off abx as clinically improving -f/u cx -Monitor CBC/CMP, temperatures -aspiration precautions Thank you for this consultation. Will continue to follow along with you. Discussed with RN Subjective Allergies: Coded Allergies: No Known Allergies (Unverified , 09/17/12) Subjective afebrile wbc improving b/l 1st toe pain and swelling improving Objective Vital Signs Last 24 Hour Vital Signs Date Time Temp Pulse Resp B/P (MAP) Pulse Ox O2 Delivery O2 Flow Rate FiO2 06/17/18 12:00 98.0 55 19 143/60 (87) 98 06/17/18 10:02 63 131/74 06/17/18 10:01 63 131/74 06/17/18 09:00 Room Air 06/17/18 08:00 98.4 63 18 131/74 (93) 96 06/17/18 04:49 98.5 63 18 119/50 (73) 96 06/17/18 04:00 98.5 63 18 119/50 (73) 96 06/17/18 00:51 98.6 60 17 129/67 (87) 98 06/16/18 21:00 Room Air 06/16/18 20:43 63 133/63 06/16/18 20:00 98.5 63 17 133/63 (86) 98 06/16/18 15:47 99.3 64 18 138/68 (91) 98 Height (Feet): 5 Height (Inches): 6.00 Weight (Pounds): 227 Objective GENERAL: Shows to be obese elderly female, in no apparent respiratory distress. NECK: Supple. No jugular venous distention. LUNGS: Clear to auscultation and percussion. CARDIAC: S1 is normal. S2 is normal. Regular rate and rhythm. No heaves, thrills, or gallops noted. ABDOMEN: Obese. Positive bowel sounds. Nontender. EXTREMITIES: There is no edema, clubbing, or cyanosis.b/l 1st toe swelling L>R and TTP, mild rednes on L 1st toe NEUROLOGICAL: She is awake, alert, responsive, and in no apparent respiratory distress. Laboratory Tests Test 06/17/18 04:50 White Blood Count 13.7 K/UL (4.8-10.8) H Red Blood Count 2.80 M/UL (4.20-5.40) L Hemoglobin 8.2 G/DL (12.0-16.0) L Hematocrit 25.3 % (37.0-47.0) L Mean Corpuscular Volume 90 FL (80-99) Mean Corpuscular Hemoglobin 29.4 PG (27.0-31.0) Mean Corpuscular Hemoglobin Concent 32.6 G/DL (32.0-36.0) Red Cell Distribution Width 13.5 % (11.6-14.8) Platelet Count 298 K/UL (150-450) Mean Platelet Volume 6.4 FL (6.5-10.1) L Neutrophils (%) (Auto) 67.5 % (45.0-75.0) Lymphocytes (%) (Auto) 22.1 % (20.0-45.0) Monocytes (%) (Auto) 7.0 % (1.0-10.0) Eosinophils (%) (Auto) 2.7 % (0.0-3.0) Basophils (%) (Auto) 0.8 % (0.0-2.0) Sodium Level 136 MMOL/L (136-145) Potassium Level 4.9 MMOL/L (3.5-5.1) Chloride Level 103 MMOL/L (98-107) Carbon Dioxide Level 27 MMOL/L (21-32) Anion Gap 7 mmol/L (5-15) Blood Urea Nitrogen 40 mg/dL (7-18) H Creatinine 1.8 MG/DL (0.55-1.30) H Estimat Glomerular Filtration Rate mL/min (>60) Glucose Level 149 MG/DL (74-106) H Uric Acid 5.3 MG/DL (2.6-7.2) Calcium Level 9.2 MG/DL (8.5-10.1) Phosphorus Level 4.4 MG/DL (2.5-4.9) Magnesium Level 2.1 MG/DL (1.8-2.4) Total Bilirubin 0.2 MG/DL (0.2-1.0) Aspartate Amino Transf (AST/SGOT) 32 U/L (15-37) Alanine Aminotransferase (ALT/SGPT) 56 U/L (12-78) Alkaline Phosphatase 79 U/L (46-116) C-Reactive Protein, Quantitative 1.5 mg/dL (0.00-0.90) H Pro-B-Type Natriuretic Peptide 48 pg/mL (0-125) Total Protein 7.4 G/DL (6.4-8.2) Albumin 2.9 G/DL (3.4-5.0) L Globulin 4.5 g/dL Albumin/Globulin Ratio 0.6 (1.0-2.7) L Current Medications Medications (Trade) Dose Ordered Sig/Nick Route PRN Reason Start Time Stop Time Status Last Admin Dose Admin Acetaminophen (Tylenol) 500 mg Q4H PRN ORAL Mild Pain/Temp > 100.5 06/13/18 01:30 07/09/18 21:29 06/15/18 16:54 Allopurinol (Zyloprim) 200 mg DAILY ORAL 06/16/18 09:00 07/13/18 08:59 06/17/18 10:02 Amlodipine Besylate (Norvasc) 5 mg DAILY ORAL 06/13/18 09:00 07/10/18 08:59 06/17/18 10:02 Aspirin (ASA) 81 mg DAILY ORAL 06/13/18 09:00 07/10/18 08:59 06/17/18 10:01 Atorvastatin Calcium (Lipitor) 20 mg BEDTIME ORAL 06/15/18 21:00 07/09/18 22:29 06/16/18 20:38 Carvedilol (Coreg) 12.5 mg EVERY 12 HOURS ORAL 06/13/18 09:00 07/09/18 22:29 06/17/18 10:01 Colchicine (Colchicine) 0.6 mg Q8HR PRN ORAL For Pain 06/13/18 06:00 07/09/18 21:29 06/16/18 20:38 Dextrose (Dextrose 50%) 25 ml Q30M PRN IV Hypoglycemia 06/12/18 22:45 07/09/18 21:44 Dextrose (Dextrose 50%) 50 ml Q30M PRN IV Hypoglycemia 06/12/18 22:45 07/09/18 21:44 Diphenhydramine HCl (Benadryl) 25 mg BEDTIME ORAL 06/13/18 21:00 07/10/18 20:59 06/16/18 20:38 Docusate Sodium (Colace) 100 mg TID ORAL 06/13/18 09:00 07/09/18 22:29 06/17/18 10:01 Ergocalciferol (Drisdol) 50,000 intlu QWEEK ORAL 06/13/18 17:00 07/13/18 16:59 06/13/18 17:28 Escitalopram Oxalate (Lexapro) 10 mg DAILY ORAL 06/13/18 09:00 07/10/18 11:59 06/17/18 10:02 Folic Acid (Folate) 1 mg DAILY ORAL 06/16/18 09:00 07/13/18 15:43 06/17/18 10:01 Gabapentin (Neurontin) 100 mg THREE TIMES A DAY ORAL 06/14/18 13:00 07/14/18 12:59 06/17/18 10:01 Heparin Sodium (Porcine) (Heparin 5000 units/ml) 5,000 units EVERY 8 HOURS SUBQ 06/13/18 06:00 07/09/18 21:59 06/17/18 05:35 Insulin Aspart (NovoLOG) BEFORE MEALS AND HS SUBQ 06/13/18 06:30 07/10/18 06:29 06/17/18 11:51 Ondansetron HCl (Zofran) 4 mg Q4HR PRN IVP Nausea & Vomiting 06/13/18 01:00 07/09/18 21:29 Pantoprazole (Protonix) 40 mg DAILY ORAL 06/13/18 09:00 07/10/18 08:59 06/17/18 10:01 Sodium Chloride 550 ml @ 0 mls/hr Q0M IV 06/13/18 15:46 07/13/18 15:45 Spironolactone (Aldactone) 50 mg DAILY ORAL 06/13/18 09:00 07/10/18 08:59 06/17/18 10:01 Temazepam (Restoril) 15 mg HSPRN PRN ORAL Insomnia 06/13/18 22:30 06/18/18 22:29 06/14/18 02:07 Thiamine HCl (Vitamin B1) 100 mg DAILY ORAL 06/14/18 09:00 07/14/18 08:59 06/17/18 10:02 Kathryn Hernandez M.D. Jun 17, 2018 12:51
[2018-06-17 16:00] VITALS: BP 114/62
--- NOTE | 2018-06-17 17:05 | Internal Med Progress Note ---
Subjective Date of Service: Jun 17, 2018 Physician Name Bk Kellogg Attending Physician Papa French MD Current Medications Medications (Trade) Dose Ordered Sig/Nick Route PRN Reason Start Time Stop Time Status Last Admin Dose Admin Acetaminophen (Tylenol) 500 mg Q4H PRN ORAL Mild Pain/Temp > 100.5 06/13/18 01:30 07/09/18 21:29 06/15/18 16:54 Allopurinol (Zyloprim) 200 mg DAILY ORAL 06/16/18 09:00 07/13/18 08:59 06/17/18 10:02 Amlodipine Besylate (Norvasc) 5 mg DAILY ORAL 06/13/18 09:00 07/10/18 08:59 06/17/18 10:02 Aspirin (ASA) 81 mg DAILY ORAL 06/13/18 09:00 07/10/18 08:59 06/17/18 10:01 Atorvastatin Calcium (Lipitor) 20 mg BEDTIME ORAL 06/15/18 21:00 07/09/18 22:29 06/16/18 20:38 Carvedilol (Coreg) 12.5 mg EVERY 12 HOURS ORAL 06/13/18 09:00 07/09/18 22:29 06/17/18 10:01 Colchicine (Colchicine) 0.6 mg Q8HR PRN ORAL For Pain 06/13/18 06:00 07/09/18 21:29 06/16/18 20:38 Dextrose (Dextrose 50%) 25 ml Q30M PRN IV Hypoglycemia 06/12/18 22:45 07/09/18 21:44 Dextrose (Dextrose 50%) 50 ml Q30M PRN IV Hypoglycemia 06/12/18 22:45 07/09/18 21:44 Diphenhydramine HCl (Benadryl) 25 mg BEDTIME ORAL 06/13/18 21:00 07/10/18 20:59 06/16/18 20:38 Docusate Sodium (Colace) 100 mg TID ORAL 06/13/18 09:00 07/09/18 22:29 06/17/18 13:09 Ergocalciferol (Drisdol) 50,000 intlu QWEEK ORAL 06/13/18 17:00 07/13/18 16:59 06/13/18 17:28 Escitalopram Oxalate (Lexapro) 10 mg DAILY ORAL 06/13/18 09:00 07/10/18 11:59 06/17/18 10:02 Folic Acid (Folate) 1 mg DAILY ORAL 06/16/18 09:00 07/13/18 15:43 06/17/18 10:01 Gabapentin (Neurontin) 100 mg THREE TIMES A DAY ORAL 06/14/18 13:00 07/14/18 12:59 06/17/18 13:09 Heparin Sodium (Porcine) (Heparin 5000 units/ml) 5,000 units EVERY 8 HOURS SUBQ 06/13/18 06:00 07/09/18 21:59 06/17/18 13:11 Insulin Aspart (NovoLOG) BEFORE MEALS AND HS SUBQ 06/13/18 06:30 07/10/18 06:29 06/17/18 16:49 Ondansetron HCl (Zofran) 4 mg Q4HR PRN IVP Nausea & Vomiting 06/13/18 01:00 07/09/18 21:29 Pantoprazole (Protonix) 40 mg DAILY ORAL 06/13/18 09:00 07/10/18 08:59 06/17/18 10:01 Sodium Chloride 550 ml @ 0 mls/hr Q0M IV 06/13/18 15:46 07/13/18 15:45 Spironolactone (Aldactone) 50 mg DAILY ORAL 06/13/18 09:00 07/10/18 08:59 06/17/18 10:01 Temazepam (Restoril) 15 mg HSPRN PRN ORAL Insomnia 06/13/18 22:30 06/18/18 22:29 06/14/18 02:07 Thiamine HCl (Vitamin B1) 100 mg DAILY ORAL 06/14/18 09:00 07/14/18 08:59 06/17/18 10:02 Allergies: Coded Allergies: No Known Allergies (Unverified , 09/17/12) ROS Limited/Unobtainable: No Constitutional: Reports: no symptoms HEENT: Reports: no symptoms Cardiovascular: Reports: no symptoms Respiratory: Reports: no symptoms Gastrointestinal/Abdominal: Reports: no symptoms Genitourinary: Reports: no symptoms Neurologic/Psychiatric: Reports: no symptoms Subjective 72 YO F admitted with bilat lower ext pain. Now leukocytosis and acute renal insufficiency. Cover for Int Med-Dr Manolo Objective Last Vital Signs Date Time Temp Pulse Resp B/P (MAP) Pulse Ox O2 Delivery O2 Flow Rate FiO2 06/17/18 12:00 98.0 55 19 143/60 (87) 98 06/17/18 09:00 Room Air Laboratory Tests Test 06/17/18 04:50 White Blood Count 13.7 K/UL (4.8-10.8) H Red Blood Count 2.80 M/UL (4.20-5.40) L Hemoglobin 8.2 G/DL (12.0-16.0) L Hematocrit 25.3 % (37.0-47.0) L Mean Corpuscular Volume 90 FL (80-99) Mean Corpuscular Hemoglobin 29.4 PG (27.0-31.0) Mean Corpuscular Hemoglobin Concent 32.6 G/DL (32.0-36.0) Red Cell Distribution Width 13.5 % (11.6-14.8) Platelet Count 298 K/UL (150-450) Mean Platelet Volume 6.4 FL (6.5-10.1) L Neutrophils (%) (Auto) 67.5 % (45.0-75.0) Lymphocytes (%) (Auto) 22.1 % (20.0-45.0) Monocytes (%) (Auto) 7.0 % (1.0-10.0) Eosinophils (%) (Auto) 2.7 % (0.0-3.0) Basophils (%) (Auto) 0.8 % (0.0-2.0) Sodium Level 136 MMOL/L (136-145) Potassium Level 4.9 MMOL/L (3.5-5.1) Chloride Level 103 MMOL/L (98-107) Carbon Dioxide Level 27 MMOL/L (21-32) Anion Gap 7 mmol/L (5-15) Blood Urea Nitrogen 40 mg/dL (7-18) H Creatinine 1.8 MG/DL (0.55-1.30) H Estimat Glomerular Filtration Rate mL/min (>60) Glucose Level 149 MG/DL (74-106) H Uric Acid 5.3 MG/DL (2.6-7.2) Calcium Level 9.2 MG/DL (8.5-10.1) Phosphorus Level 4.4 MG/DL (2.5-4.9) Magnesium Level 2.1 MG/DL (1.8-2.4) Total Bilirubin 0.2 MG/DL (0.2-1.0) Aspartate Amino Transf (AST/SGOT) 32 U/L (15-37) Alanine Aminotransferase (ALT/SGPT) 56 U/L (12-78) Alkaline Phosphatase 79 U/L (46-116) C-Reactive Protein, Quantitative 1.5 mg/dL (0.00-0.90) H Pro-B-Type Natriuretic Peptide 48 pg/mL (0-125) Total Protein 7.4 G/DL (6.4-8.2) Albumin 2.9 G/DL (3.4-5.0) L Globulin 4.5 g/dL Albumin/Globulin Ratio 0.6 (1.0-2.7) L Intake and Output 06/16/18 06/17/18 18:59 06:59 Intake Total 1000 ml 480 ml Output Total 1650 ml 800 ml Balance -650 ml -320 ml Intake Oral 1000 ml 480 ml Output Urine Total 1650 ml 800 ml # Voids 1 Objective General Appearance: WD/WN, no apparent distress, alert EENT: PERRL/EOMI, normal ENT inspection, TMs normal Neck: non-tender, normal alignment, supple, normal inspection Cardiovascular: normal peripheral pulses, normal rate, regular rhythm, no gallop/murmur, no JVD Respiratory/Chest: chest wall non-tender, lungs clear, normal breath sounds, no respiratory distress, no accessory muscle use Abdomen: normal bowel sounds, non tender, soft, no organomegaly, no mass Extremities: normal range of motion Neurologic: genetic counselor II-XII grossly normal, no motor/sensory deficits Skin: normal pigmentation, warm/dry Assessment/Plan Problem List: (1) Gout Assessment & Plan: Acute attack. Continue indomethacin and solumedrol (2) HTN (hypertension) Assessment & Plan: continue norvasc, aldactone and coreg (3) Renal insufficiency (4) Hypercholesteremia Assessment & Plan: Continue lipitor (5) HX: breast cancer (6) Diabetes mellitus Assessment & Plan: Continue novolog sliding scale. (7) Leukocytosis Assessment & Plan: ?secondary to IV solumedrol? See ID note Status: Bk Guerra MD Jun 17, 2018 17:05
--- NOTE | 2018-06-17 17:15 | Nephrology Progress Note ---
Assessment/Plan Problem List: (1) ATN (acute tubular necrosis) Assessment: Cr lower (2) HTN (hypertension) (3) Gout (4) Diabetes mellitus (5) Anemia (6) Obesity (BMI 30-39.9) Assessment Acute Renal Failure DM HTN Neuropathy Obesity Breast Ca s/p Lumpectomy s/p Hysterectomy GERD Gout Ej Fx 60% Anemia Plan DC Indomethacin Adjust BP meds Abraham Hold Diuretics urine studies Anemia rodriguez Add allopurinol Monitor renal parameters Avoid Nephrotoxics Thiamin Folic acid Ergocalciferol Subjective ROS Limited/Unobtainable: No Objective Objective Last 24 Hour Vital Signs Date Time Temp Pulse Resp B/P (MAP) Pulse Ox O2 Delivery O2 Flow Rate FiO2 06/17/18 12:00 98.0 55 19 143/60 (87) 98 06/17/18 10:02 63 131/74 06/17/18 10:01 63 131/74 06/17/18 09:00 Room Air 06/17/18 08:00 98.4 63 18 131/74 (93) 96 06/17/18 04:49 98.5 63 18 119/50 (73) 96 06/17/18 04:00 98.5 63 18 119/50 (73) 96 06/17/18 00:51 98.6 60 17 129/67 (87) 98 06/16/18 21:00 Room Air 06/16/18 20:43 63 133/63 06/16/18 20:00 98.5 63 17 133/63 (86) 98 Intake and Output 06/16/18 06/17/18 18:59 06:59 Intake Total 1000 ml 480 ml Output Total 1650 ml 800 ml Balance -650 ml -320 ml Intake Oral 1000 ml 480 ml Output Urine Total 1650 ml 800 ml # Voids 1 Laboratory Tests 06/17/18 04:50: White Blood Count 13.7H, Red Blood Count 2.80L, Hemoglobin 8.2L, Hematocrit 25.3L, Mean Corpuscular Volume 90, Mean Corpuscular Hemoglobin 29.4, Mean Corpuscular Hemoglobin Concent 32.6, Red Cell Distribution Width 13.5, Platelet Count 298, Mean Platelet Volume 6.4L, Neutrophils (%) (Auto) 67.5, Lymphocytes ( %) (Auto) 22.1, Monocytes (%) (Auto) 7.0, Eosinophils (%) (Auto) 2.7, Basophils (%) (Auto) 0.8, Sodium Level 136, Potassium Level 4.9, Chloride Level 103, Carbon Dioxide Level 27, Anion Gap 7, Blood Urea Nitrogen 40H, Creatinine 1.8H, Estimat Glomerular Filtration Rate , Glucose Level 149H, Uric Acid 5.3, Calcium Level 9.2, Phosphorus Level 4.4, Magnesium Level 2.1, Total Bilirubin 0.2, Aspartate Amino Transf (AST/SGOT) 32, Alanine Aminotransferase (ALT/SGPT) 56, Alkaline Phosphatase 79, C-Reactive Protein, Quantitative 1.5H, Pro-B-Type Natriuretic Peptide 48, Total Protein 7.4, Albumin 2.9L, Globulin 4.5, Albumin/ Globulin Ratio 0.6L Height (Feet): 5 Height (Inches): 6.00 Weight (Pounds): 227 General Appearance: no apparent distress Objective no change Adithya Valladares MD Jun 17, 2018 17:15
--- NOTE | 2018-06-19 09:53 | Discharge Summary ---
Discharge Summary Discharge Summary _ DATE OF ADMISSION: 06/09/2018 DATE OF DISCHARGE: 06/17/2018 DISCHARGED BY: Dr. French REASON FOR ADMISSION: 72 years old female with past medical history of diabetes mellitus type 2, hypertension, hypercholesterolemia, gout, initially presented to [facility] emergency department. Patient started to experience extreme bilateral leg swelling and pain. Patient reported that it was more severe than before. Patient was unable to get out of the bed. Her pain became unbearable. Patient stabilized at [place] emergency room and was subsequently transferred to [facility] for insurance purposes. Patient admitted with bilateral lower extremity edema pain , gout, probable gout flare, peripheral neuropathy. CONSULTANTS: radio tester Dr. Veloz pulmonary Dr. Lux ID specialist Dr. Garcia manager air Dr. Valladares psychiatrist [facility] COURSE: Patient admitted to medical surgical floor. Patient initially started on indomethacin and Lasix , which were s discontinued due to worsening renal failure. Allopurinol was added to existing regimen and colchicine was continued on as needed basis. Uric acid was trending down. Barge Captain follow. Renal parameters and electrolytes were closely monitored. Electrolytes corrected as needed. Nephrotoxins were avoided. Creatinine trended down to admission level. Despite uric acid trending down to 5.3 , patient reported pain and in bilateral lower extremity. Patient started on small dose of Neurontin. Patient will need to slowly up titrate to desired effect as outpatient. Laboratory workup revealed folate and B 12 deficiency. Patient started on supplements of B 12 and folic acid. After three days of supplements , B12 level more than 2000, folate level 17.7. Pain management was addressed, and eventually controlled. Blood pressure was managed with amlodipine. Statin was continued. Lipid panel was stable. Cardiology followed. Patient did not endorse chest pain. Troponin were negative. EKG reveals no acute ischemic changes. Echocardiogram revealed preserved ejection fraction of 60%. Mild left ventricular hypertrophy. No evidence. No wall motion abnormality. Right ventricular systolic pressure of 35, consistent with mild pulmonary hypertension. DVT and GI prophylaxis provided. Blood sugar was managed with sliding scale of insulin. Hemoglobin A1c 6.5. Infectious disease specialist closely followed. Patient had a leukocytosis , which was likely reactive secondary to high-dose of steroids initially provided( time one). Stool for C. difficile is negative. Chest x-ray revealed cardiomegaly but no acute process. No fever. Infectious disease doctor recommended to keep patient off antibiotics and monitor clinically. Hemoglobin hematocrit were closely monitored with goal to keep hemoglobin 7. Anemia workup revealed stable iron. B 12 and folate deficiency were addressed as mentioned above. Hemoglobin and hematocrit remain at baseline. CEA within normal limits. Stool for occult blood was negative.. Supportive care provided. Patient was working with physical therapist. Fall precautions were maintained. Psychiatrist followed and diagnosed patient with major depression , recurrent and anxiety disorder. Patient started on antidepressant with Lexapro and Benadryl at nighttime. reality orientation and supportive therapy provided. Daughter lives out of town , was at the bedside and requested short-term jail facility. [facility] facility placement was arranged . Patient was subsequently transferred to the jail facility for continuation of care. FINAL DIAGNOSES: Acute renal failure/ acute tubular necrosis Gout, probably gout flare Peripheral neuropathy Diabetes mellitus type 2 Hypertension Anemia B12 deficiency Folic acid deficiency Obesity Major depressive disorder Anxiety History of breast cancer , status post lumpectomy DISCHARGE MEDICATIONS: See Medication Reconciliation list. DISCHARGE INSTRUCTIONS: Patient was discharged to the jail facility. Follow up with medical doctor at the facility. Angelina Alvarado NP Jun 19, 2018 09:53
== END 2018-06-17 20:12 | DRG 684 ==
LOC: 2E 19:45 → 3E 06-12 22:25
DX: N17.0 Acute kidney failure with tubular necrosis (principal); M10.9 Gout, unspecified; E11.9 Type 2 diabetes mellitus without complications; G62.9 Polyneuropathy, unspecified; I10 Essential (primary) hypertension; E78.00 Pure hypercholesterolemia, unspecified; Z79.84 Long term (current) use of oral hypoglycemic drugs; Z79.82 Long term (current) use of aspirin; D52.9 Folate deficiency anemia, unspecified; E53.8 Deficiency of other specified B group vitamins; F32.9 Major depressive disorder, single episode, unspecified; F41.9 Anxiety disorder, unspecified; Z85.3 Personal history of malignant neoplasm of breast; Z86.73 Personal history of transient ischemic attack (TIA), and cerebral infarction without residual deficits; E66.9 Obesity, unspecified; K21.9 Gastro-esophageal reflux disease without esophagitis
CPT/HCPCS: 36415; 71045; 80053; 80061; 81001; 82270; 82378; 82550; 82607; 82728; 82746; 82962; 83036; 83540; 83550; 83615; 83735; 83880; 84100; 84300; 84484; 84550; 85007; 85025; 85044; 85060; 85610; 85651; 85730; 86140; 87324; 89050; 93005; 93306; J1815

== ENCOUNTER 2020-03-18 09:38 | Inpatient (IN) | payer MEDICARE, OTHER ==
[~2020-03-18] VITALS: Ht 165.1 cm; Wt 102.7 kg
[~2020-03-18 09:38] MED LIST changes: +ALLOPURINOL100 M1 ORAL; +AMLODIPINE BESYL5 MG ORAL; +APRESOLINE50 MG ORAL; +ASPIRIN81 M3 PO; +BENICAR HCT 401 EAC1 ORAL; +COLACE100 MG ORAL; +COREG12.5 MG ORAL; +CRESTOR10 M1 ORAL; +FUROSEMIDE40 MG/5 ML ORAL; +GABAPENTIN100 MG ORAL; +LEXAPRO10 MG ORAL; +METFORMIN HCL500 M1 ORAL; +NOVOLOG100 UNITS1 SUBQ; +PROTONIX20 MG ORAL; +SPIRONOLACTONE100 MG ORAL
--- NOTE | 2020-03-18 09:52 | NUR ---
ED Nurse Note: Pt BIBA from [facility] for fever of 103F at [facility]. Pt tested positive for COVID 03/15. Pt is alert and oreintedx4, incontinent. Lungs clear bilaterally. Pt is set up with iso precautions.
[2020-03-18] MEDS ORDERED: GABAPENTIN100 MG ORAL (10:03)
[2020-03-18] MEDS ORDERED: VITAMIN C500 M1 ORAL (10:03)
[2020-03-18] MEDS ORDERED: MAGNESIUM400 M1 PO (10:03)
[2020-03-18] MEDS ORDERED: CRESTOR10 M2 ORAL (10:03)
[2020-03-18] MEDS ORDERED: FERROUS SULFAT325 MG ORAL (10:03)
[2020-03-18] MEDS ORDERED: METFORMIN HCL1000 M1 ORAL (10:03)
[2020-03-18] MEDS ORDERED: LOSARTAN POTASS50 MG ORAL (10:03)
[2020-03-18] MEDS ORDERED: LEXAPRO10 MG ORAL (10:03)
[2020-03-18] MEDS ORDERED: ACETAMINOPHEN500 M3 ORAL ×2 (10:03→15:22)
[2020-03-18] MEDS ORDERED: MULTIVITAMINS1 EAC8 ORAL (10:03)
[2020-03-18] MEDS ORDERED: AMLODIPINE BESY10 MG ORAL (10:03)
[2020-03-18] MEDS ORDERED: NOVOLIN R100 UNIT/1 SUBQ (10:03)
[2020-03-18] MEDS ORDERED: HYDROCHLOROTH12.5 MG ORAL (10:03)
[2020-03-18] MEDS ORDERED: FUROSEMIDE20 M1 ORAL (10:03)
--- NOTE | 2020-03-18 10:12 | Emergency Room Report ---
History of Present Illness General Chief Complaint: Fever Source: Patient Present Illness HPI Disclaimer: Please note that this report is being documented using DRAGON technology. This can lead to erroneous entry secondary to incorrect interpretation by the dictating instrument. HPI: 74-year-old female history of heart failure, obesity, hypertension, diabetes presents for evaluation of hypoxia. Found saturating 90% on room air with worsening cough. Patient had COVID-19 swab performed on 03/15 which returned positive on 03/17. She also had a chest x-ray on 03/17 showing bilateral infiltrates. Sent over for treatment of COVID-19 pneumonia. The patient herself has no complaints though she is a poor historian does not seem to know much about her medical history. Denies fevers, headache, nausea, vomiting, chest pain, abdominal pain or discomfort of any kind. 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 COVID-19 Screening: Positive COVID-19 COVID-19 Testing Source: unpaid intern Patient History Last Menstrual Period: na Nursing Documentation-PMH Past Medical History: No History, Except For Hx Cardiac Problems: Yes Hx Hypertension: Yes Hx Diabetes: Yes Hx Cancer: Yes Hx Gastrointestinal Problems: Yes Hx Cerebrovascular Accident: Yes - 2 years ago per dtr Review of Systems All Other Systems: negative except mentioned in HPI Physical Exam Vital Signs Date Time Temp Pulse Resp B/P (MAP) Pulse Ox O2 Delivery O2 Flow Rate FiO2 03/18/20 09:39 100.2 81 24 198/110 (139) 97 Nasal Cannula 2.0 General: Awake and alert, no acute distress, low-grade fever HEENT: NC/AT. EOMI. Cardiovascular: RRR. S1 and S2 normal. No murmur appreciated Resp: 2 L nasal cannula. Normal work of breathing. No cough, wheezing or crackles appreciated Abdomen: Abdomen is soft, nondistended. Nontender Skin: Intact. No abrasions, laceration or rash over the exposed skin MSK: Normal tone and bulk. Moving all extremities. No obvious deformity. Neuro: Awake and alert. Mentating appropriately though a poor historian. Procedures Critical Care Time Critical Care Time Total critical care time: Approximately 45 minutes Due to a high probability of clinically significant, life threatening de terioration, the patient required the highest level of preparedness to intervene emergently and I personally spent this critical care time directly and personally managing the patient. This critical care time included obtaining a history, examining the patient, pulse oximetry, ordering and reviewing studies, ordering treatments, evaluating response to treatment and updating management plan as needed, frequent reassessment and discussion with other providers as well as arranging for ultimate disposition. This critical to care time was performed to assess and manage the high probability of life-threatening deterioration that could result in multiorgan failure. This critical care time is separate from the separately billable procedures and treating other patients. Medical Decision Making Diagnostic Impression: Primary Impression: Pneumonia due to COVID-19 virus Additional Impressions: UTI (urinary tract infection) Elevated d-dimer Diabetes mellitus ER Course 74-year-old female transferred from nursing facility to ER for admission of COVID-19 pneumonia. She arrives with a borderline fever will be given antipyretics, start antibiotics, IV steroids ordered. Will repeat COVID-19 swab, x-ray and send broad labs. Will admit to her PMD, Dr. French. 1300 Blood show evidence of an acute urinary tract infection as well as a middle lobe infiltrate on chest x-ray consistent with the patient's history. Treated with Zosyn. Lactate within normal limits. Other labs unremarkable. D-dimer was slightly elevated and patient was treated with Lovenox. Admitted to telemetry. Laboratory Tests Test 03/18/20 10:05 03/18/20 10:51 White Blood Count 8.5 K/UL (4.8-10.8) Red Blood Count 4.12 M/UL (4.20-5.40) L Hemoglobin 11.2 G/DL (12.0-16.0) L Hematocrit 35.9 % (37.0-47.0) L Mean Corpuscular Volume 87 FL (80-99) Mean Corpuscular Hemoglobin 27.2 PG (27.0-31.0) Mean Corpuscular Hemoglobin Concent 31.2 G/DL (32.0-36.0) L Red Cell Distribution Width 15.0 % (11.6-14.8) H Platelet Count 324 K/UL (150-450) Mean Platelet Volume 6.2 FL (6.5-10.1) L Neutrophils (%) (Auto) 66.1 % (45.0-75.0) Lymphocytes (%) (Auto) 19.9 % (20.0-45.0) L Monocytes (%) (Auto) 10.1 % (1.0-10.0) H Eosinophils (%) (Auto) 1.2 % (0.0-3.0) Basophils (%) (Auto) 2.8 % (0.0-2.0) H Prothrombin Time 10.5 SEC (9.30-11.50) Prothrombin Time INR 0.9 (0.9-1.1) Activated Partial Thromboplast Time 27 SEC (23-33) D-Dimer 0.70 mg/L FEU (0.00-0.49) H Sodium Level 141 MMOL/L (136-145) Potassium Level 4.4 MMOL/L (3.5-5.1) Chloride Level 100 MMOL/L (98-107) Carbon Dioxide Level 31 MMOL/L (21-32) Anion Gap 10 mmol/L (5-15) Blood Urea Nitrogen 26 mg/dL (7-18) H Creatinine 1.1 MG/DL (0.55-1.30) Estimated Glomerular Filtration Rate 59.0 mL/min (>60) Glucose Level 143 MG/DL (74-106) H Lactic Acid Level 1.00 mmol/L (0.4-2.0) Calcium Level 8.9 MG/DL (8.5-10.1) Ferritin 299 NG/ML (8-388) Total Bilirubin 0.5 MG/DL (0.2-1.0) Aspartate Amino Transferase (AST) 30 U/L (15-37) Alanine Aminotransferase (ALT) 24 U/L (12-78) Alkaline Phosphatase 111 U/L (46-116) Lactate Dehydrogenase 207 U/L (81-234) Total Creatine Kinase 58 U/L (26-308) Creatine Kinase MB < 0.5 NG/ML (0.0-3.6) Creatine Kinase MB Relative Index 0.8 Troponin I 0.000 ng/mL (0.000-0.056) C-Reactive Protein, Quantitative 6.7 mg/dL (0.00-0.90) H Pro-B-Type Natriuretic Peptide 86 pg/mL (0-125) Total Protein 8.6 G/DL (6.4-8.2) H Albumin 3.6 G/DL (3.4-5.0) Globulin 5.0 g/dL Albumin/Globulin Ratio 0.7 (1.0-2.7) L Lipase 59 U/L (73-393) L Urine Color Yellow Urine Appearance Slightly cloudy Urine pH 6.5 (4.5-8.0) Urine Specific [place] 1.010 (1.005-1.035) Urine Protein 3+ (NEGATIVE) H Urine Glucose (UA) Negative (NEGATIVE) Urine Ketones Negative (NEGATIVE) Urine Blood 5+ (NEGATIVE) H Urine Nitrite Positive (NEGATIVE) H Urine Bilirubin Negative (NEGATIVE) Urine Urobilinogen 1 MG/DL (0.0-1.0) H Urine Leukocyte Esterase 3+ (NEGATIVE) H Urine RBC 10-15 /HPF (0 - 2) H Urine WBC 60-80 /HPF (0 - 2) H Urine Squamous Epithelial Cells Moderate /LPF (NONE/OCC) H Urine Bacteria Moderate /HPF (NONE) H Microbiology Date/Time Source Procedure Growth Status 03/18/20 10:51 Nasopharynx SARS-CoV-2 RdRp Gene Assay - Final Complete EKG Diagnostic Results EKG Time: 10:12 Rate: normal Rhythm: NSR ST Segments: no acute changes Other Impression Sinus rhythm, left axis, first-degree AV block with MS interval of 232 ms, QTc interval 454 ms. Signs of LVH and nonspecific T wave changes. Rhythm Strip Diag. Results Rhythm Strip Time: 10:12 EP Interpretation: yes Rate: 80 Rhythm: NSR, no PVC's, no ectopy Chest X-Ray Diagnostic Results Chest X-Ray Diagnostic Results : Chest X-Ray Ordered: Yes Indication: Shortness of Breath EP Interpretation: Yes Interpretation: other - Cardiomegaly, hazy bilateral opacities Impression: Other - Cardiomegaly with bilateral opacities Electronically Signed by: Electronically signed by Dr. Zain Marshall Last Vital Signs Date Time Temp Pulse Resp B/P (MAP) Pulse Ox O2 Delivery O2 Flow Rate FiO2 03/18/20 09:39 100.2 81 24 198/110 (139) 97 Nasal Cannula 2.0 Disposition: ADMITTED INPATIENT Condition: Serious Referrals: Papa French MD (PCP) Zain Marshall MD Mar 18, 2020 10:12
[2020-03-18] MEDS ORDERED: cefTRIAXone 1 GM in NS 55 ML IV ONE (10:15)
[2020-03-18] MEDS ORDERED: Azithromycin 500 MG in NS 275 ML IVPB ONE (10:15)
[2020-03-18] MEDS ORDERED: dexAMETHasone 10mg/ml Inj IV ONE (10:15)
[2020-03-18 10:25] VITALS: BP 150/101
[2020-03-18 10:47] LABS: BASOPHILS % (AUTO) 2.8 % (0.0-2.0); EOSINOPHILS % (AUTO) 1.2 % (0.0-3.0); HEMATOCRIT 35.9 % (37.0-47.0); HEMOGLOBIN 11.2 G/DL (12.0-16.0); LYMPHOCYTES % (AUTO) 19.9 % (20.0-45.0); MEAN CORPUSCULAR VOLUME 87 FL (80-99); MONOCYTES % (AUTO) 10.1 % (1.0-10.0); NEUTROPHILS % (AUTO) 66.1 % (45.0-75.0); PLATELET COUNT 324 K/UL (150-450); RED BLOOD COUNT 4.12 M/UL (4.20-5.40); WHITE BLOOD COUNT 8.5 K/UL (4.8-10.8)
[2020-03-18 10:54] LABS: INR 0.9 (0.9-1.1)
[2020-03-18 11:03] LABS: ANION GAP 10 mmol/L (5-15); BLOOD UREA NITROGEN 26 mg/dL (7-18); CALCIUM 8.9 MG/DL (8.5-10.1); CARBON DIOXIDE 31 MMOL/L (21-32); CHLORIDE 100 MMOL/L (98-107); CREATININE 1.1 MG/DL (0.55-1.30); POTASSIUM 4.4 MMOL/L (3.5-5.1); SODIUM 141 MMOL/L (136-145)
[2020-03-18 11:18] LABS: APPEARANCE,URINE SLIGHTLY CLOUDY; BILIRUBIN, URINE NEGATIVE (NEGATIVE); GLUCOSE, URINE (UA) NEGATIVE (NEGATIVE); KETONES,URINE NEGATIVE (NEGATIVE); LEUKOCYTE ESTERASE ,URINE 3+ (NEGATIVE); NITRITE,URINE POSITIVE (NEGATIVE); PH,URINE 6.5 (4.5-8.0); PROTEIN,URINE 3+ (NEGATIVE); UROBILINOGEN,URINE 1 MG/DL (0.0-1.0)
[2020-03-18 11:19] LABS: ALANINE AMINOTRANSFERASE 24 U/L (12-78); ALBUMIN 3.6 G/DL (3.4-5.0); ALBUMIN/GLOBULIN RATIO 0.7 (1.0-2.7); ALKALINE PHOSPHATASE 111 U/L (46-116); ASPARTATE AMINO TRANSFERASE 30 U/L (15-37); BILIRUBIN,TOTAL 0.5 MG/DL (0.2-1.0); CKMB < 0.5 NG/ML (0.0-3.6); CREATINE KINASE 58 U/L (26-308); FERRITIN 299 NG/ML (8-388); LACTATE DEHYDROGENASE 207 U/L (81-234)
[2020-03-18 11:21] LABS: COLOR,URINE YELLOW
--- NOTE | 2020-03-18 11:33 | Diagnostic Imaging Report ---
Procedure: XRAY Chest 1v Reason for study: Reason For Exam: SOB Comparison films: 06/11/2018. FINDINGS: A single one view chest is obtained. Vascularity is normal. There is mild densities noted in the right midlung. Question early infiltrate. Cardiomegaly unchanged. CP angles are sharp. The bony thorax appear unremarkable. IMPRESSION: Possible early infiltrate right midlung.
[2020-03-18] MEDS ORDERED: Enoxaparin 40mg Inj SUBQ SCH (12:30)
[2020-03-18 12:45] VITALS: BP 146/100
--- NOTE | 2020-03-18 13:40 | NUR ---
ED Nurse Note: Pt transferred with all belongings to tele floor on monitor. No acute distress.
[2020-03-18] MEDS ORDERED: LORazepam Inj 2mg/ml 1ml IV PRN (14:00)
[2020-03-18] MEDS ORDERED: Promethazine/Codeine 5ml UD ORAL PRN (14:00)
[2020-03-18] MEDS ORDERED: Albuterol/Ipratropium 3ml neb HHN PRN (14:00)
[2020-03-18] MEDS ORDERED: Miralax 17gm pkt ORAL PRN (14:00)
--- NOTE | 2020-03-18 14:07 | Consultation ---
History of Present Illness General Date patient seen: Mar 18, 2020 Chief Complaint: Fever Present Illness HPI 4-year-old female wit history of heart failure, obesity, hypertension, diabetes presented to ER for evaluation of hypoxia and persistent cough. Patient had COVID-19 swab performed on 03/15 which returned positive on 03/17. She also had a chest x-ray on 03/17 showing bilateral infiltrates. Sent over for treatment of COVID-19 pneumonia. The patient herself has no complaints though she is a poor historian does not seem to know much about her medical history. Denies fevers, headache, nausea, vomiting, chest pain, abdominal pain or discomfort of any kin d. Allergies: Coded Allergies: No Known Allergies (Unverified , 09/17/12) Medication History Scheduled Allopurinol* (Allopurinol*), 100 MG ORAL DAILY, (Reported) Amlodipine Besylate* (Amlodipine Besylate*), 10 MG ORAL DAILY, (Reported) Ascorbic Acid* (Vitamin C*), 500 MG ORAL DAILY, (Reported) Aspirin (Aspirin), 81 MG PO DAILY, (Reported) Carvedilol (Coreg), 12.5 MG ORAL EVERY 12 HOURS, (Reported) Docusate Sodium* (Colace*), 100 MG ORAL QHS, (Reported) Escitalopram Oxalate* (Lexapro*), 5 MG ORAL DAILY, (Reported) Ferrous Sulfate* (Ferrous Sulfate*), 325 MG ORAL BID, (Reported) Furosemide* (Lasix*), 20 MG ORAL DAILY, (Reported) Gabapentin* (Gabapentin*), 300 MG ORAL THREE TIMES A DAY, (Reported) Hydrochlorothiazide* (Hydrochlorothiazide*), 12.5 MG ORAL DAILY, (Reported) Losartan Potassium* (Losartan Potassium*), 50 MG ORAL DAILY, (Reported) Magnesium Oxide (Magnesium), 400 MG PO DAILY, (Reported) Metformin Hcl* (Metformin Hcl*), 1,000 MG ORAL BID, (Reported) Multivitamin With Minerals (Multivitamins With Minerals*), 1 TAB ORAL DAILY, (Reported) Rosuvastatin Calcium* (Crestor*), 10 MG ORAL DAILY, (Reported) Scheduled PRN Acetaminophen* (Acetaminophen 325MG Tablet*), 650 MG ORAL Q4H PRN for For Pain, (Reported) Acetaminophen* (Acetaminophen 325MG Tablet*), 650 MG ORAL Q4H PRN for TEMP (Temp>101F), (Reported) Acetaminophen* (Acetaminophen Extra Strength*), 1,000 MG ORAL for For Pain, (Reported) Lidocaine Hcl (Lidocaine Hcl), GM TP BID PRN for BILATERAL KNEE PAIN, (Reported) Miscellaneous Medications Insulin Aspart (Novolog), UNITS SUBQ, (Reported) Discontinued Medications Acetaminophen* (Acetaminophen Extra Strength*), 1,000 MG ORAL Q6H, (Reported) Discontinued Reason: Prescription changed Allopurinol* (Allopurinol*), 200 MG ORAL DAILY Discontinued Reason: Pt stopped taking med Amlodipine Besylate* (Amlodipine Besylate*), 5 MG ORAL DAILY, (Reported) Discontinued Reason: Pt stopped taking med Escitalopram Oxalate* (Lexapro*), 10 MG ORAL DAILY Discontinued Reason: Pt stopped taking med Furosemide (Furosemide), 20 MG ORAL DAILY, (Reported) Discontinued Reason: Pt stopped taking med Gabapentin* (Gabapentin*), 100 MG ORAL THREE TIMES A DAY Discontinued Reason: Pt stopped taking med Insulin Aspart (Novolog Flexpen), 0 UNITS SUBQ BEFORE MEALS AND HS Discontinued Reason: Pt stopped taking med Insulin Regular, Human* (Novolin R*), 0 SUBQ .SLIDING SCALE, (Reported) Discontinued Reason: Pt stopped taking med Metformin Hcl* (Metformin Hcl*), 500 MG ORAL THREE TIMES A DAY, (Reported) Discontinued Reason: Pt stopped taking med Pantoprazole Sodium (Protonix), 40 MG ORAL DAILY, (Reported) Discontinued Reason: Pt stopped taking med Rosuvastatin Calcium (Crestor), 10 MG ORAL DAILY, (Reported) Discontinued Reason: Pt stopped taking med Spironolactone* (Spironolactone*), 50 MG ORAL DAILY, (Reported) Discontinued Reason: Pt stopped taking med Patient History Healthcare decision maker Resuscitation status Advanced Directive on File Past Medical/Surgical History Past Medical/Surgical History: (1) Diabetes mellitus (2) HX: breast cancer (3) Anxiety disorder (4) Major depression, recurrent (5) Decreased activities of daily living (ADL) (6) Gout (7) History of hypertension Review of Systems All Other Systems: negative except mentioned in HPI Physical Exam General Appearance: WD/WN, no apparent distress Lines, tubes and drains: peripheral HEENT: normocephalic, atraumatic Neck: non-tender, normal alignment Respiratory/Chest: chest wall non-tender, rhonchi - left, rhonchi - right Abdomen: normal bowel sounds, non tender Genitourinary/Rectal: normal genital exam Extremities: normal range of motion Skin Exam: normal pigmentation 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 Last 24 Hour Vital Signs Date Time Temp Pulse Resp B/P (MAP) Pulse Ox O2 Delivery O2 Flow Rate FiO2 03/18/20 13:40 98.1 76 19 126/87 96 Room Air 03/18/20 12:45 100.2 81 20 146/100 98 Nasal Cannula 2.0 03/18/20 10:25 83 22 Nasal Cannula 2.0 97 03/18/20 10:25 100.2 83 22 150/101 97 Nasal Cannula 2.0 03/18/20 09:39 100.2 81 24 198/110 (139) 97 Nasal Cannula 2.0 Laboratory Tests Test 03/18/20 10:05 03/18/20 10:51 White Blood Count 8.5 K/UL (4.8-10.8) Red Blood Count 4.12 M/UL (4.20-5.40) L Hemoglobin 11.2 G/DL (12.0-16.0) L Hematocrit 35.9 % (37.0-47.0) L Mean Corpuscular Volume 87 FL (80-99) Mean Corpuscular Hemoglobin 27.2 PG (27.0-31.0) Mean Corpuscular Hemoglobin Concent 31.2 G/DL (32.0-36.0) L Red Cell Distribution Width 15.0 % (11.6-14.8) H Platelet Count 324 K/UL (150-450) Mean Platelet Volume 6.2 FL (6.5-10.1) L Neutrophils (%) (Auto) 66.1 % (45.0-75.0) Lymphocytes (%) (Auto) 19.9 % (20.0-45.0) L Monocytes (%) (Auto) 10.1 % (1.0-10.0) H Eosinophils (%) (Auto) 1.2 % (0.0-3.0) Basophils (%) (Auto) 2.8 % (0.0-2.0) H Prothrombin Time 10.5 SEC (9.30-11.50) Prothromb Time International Ratio 0.9 (0.9-1.1) Activated Partial Thromboplast Time 27 SEC (23-33) D-Dimer 0.70 mg/L FEU (0.00-0.49) H Sodium Level 141 MMOL/L (136-145) Potassium Level 4.4 MMOL/L (3.5-5.1) Chloride Level 100 MMOL/L (98-107) Carbon Dioxide Level 31 MMOL/L (21-32) Anion Gap 10 mmol/L (5-15) Blood Urea Nitrogen 26 mg/dL (7-18) H Creatinine 1.1 MG/DL (0.55-1.30) Estimat Glomerular Filtration Rate 59.0 mL/min (>60) Glucose Level 143 MG/DL (74-106) H Lactic Acid Level 1.00 mmol/L (0.4-2.0) Calcium Level 8.9 MG/DL (8.5-10.1) Ferritin 299 NG/ML (8-388) Total Bilirubin 0.5 MG/DL (0.2-1.0) Aspartate Amino Transf (AST/SGOT) 30 U/L (15-37) Alanine Aminotransferase (ALT/SGPT) 24 U/L (12-78) Alkaline Phosphatase 111 U/L (46-116) Lactate Dehydrogenase 207 U/L (81-234) Total Creatine Kinase 58 U/L (26-308) Creatine Kinase MB < 0.5 NG/ML (0.0-3.6) Creatine Kinase MB Relative Index 0.8 Troponin I 0.000 ng/mL (0.000-0.056) C-Reactive Protein, Quantitative 6.7 mg/dL (0.00-0.90) H Pro-B-Type Natriuretic Peptide 86 pg/mL (0-125) Total Protein 8.6 G/DL (6.4-8.2) H Albumin 3.6 G/DL (3.4-5.0) Globulin 5.0 g/dL Albumin/Globulin Ratio 0.7 (1.0-2.7) L Lipase 59 U/L (73-393) L Urine Color Yellow Urine Appearance Slightly cloudy Urine pH 6.5 (4.5-8.0) Urine Specific [place] 1.010 (1.005-1.035) Urine Protein 3+ (NEGATIVE) H Urine Glucose (UA) Negative (NEGATIVE) Urine Ketones Negative (NEGATIVE) Urine Blood 5+ (NEGATIVE) H Urine Nitrite Positive (NEGATIVE) H Urine Bilirubin Negative (NEGATIVE) Urine Urobilinogen 1 MG/DL (0.0-1.0) H Urine Leukocyte Esterase 3+ (NEGATIVE) H Urine RBC 10-15 /HPF (0 - 2) H Urine WBC 60-80 /HPF (0 - 2) H Urine Squamous Epithelial Cells Moderate /LPF (NONE/OCC) H Urine Bacteria Moderate /HPF (NONE) H Microbiology Date/Time Source Procedure Growth Status 03/18/20 11:11 Rectum Received 03/18/20 10:51 Nasopharynx SARS-CoV-2 RdRp Gene Assay - Final Complete Height (Feet): 5 Height (Inches): 3.00 Weight (Pounds): 232 Medications Current Medications Medications (Trade) Dose Ordered Sig/Nick Route PRN Reason Start Time Stop Time Status Last Admin Dose Admin Acetaminophen (Tylenol) 650 mg Q4H PRN ORAL FEVER 03/18/20 14:00 04/17/20 13:59 UNV Albuterol/ Ipratropium (Albuterol/ Ipratropium) 3 ml EVERY 4 HOURS PRN HHN Shortness of Breath 03/18/20 14:00 03/23/20 13:59 UNV Allopurinol (Zyloprim) 200 mg DAILY ORAL 03/19/20 09:00 04/18/20 08:59 Amlodipine Besylate (Norvasc) 5 mg DAILY ORAL 03/19/20 09:00 04/18/20 08:59 Carvedilol (Coreg) 12.5 mg EVERY 12 HOURS ORAL 03/18/20 21:00 04/17/20 20:59 Cefepime HCl 2 gm/ Dextrose 110 ml @ 220 mls/hr EVERY 12 HOURS IV 03/18/20 21:00 03/25/20 20:59 UNV Dextrose (Dextrose 50%) 25 ml Q30M PRN IV Hypoglycemia 03/18/20 14:00 06/16/20 13:59 Dextrose (Dextrose 50%) 50 ml Q30M PRN IV Hypoglycemia 03/18/20 14:00 06/16/20 13:59 Enoxaparin Sodium (Lovenox) 40 mg Q12HR SUBQ 03/18/20 12:30 06/16/20 12:29 03/18/20 12:37 Escitalopram Oxalate (Lexapro) 5 mg DAILY ORAL 03/19/20 09:00 04/18/20 08:59 Heparin Sodium (Porcine) (Heparin 5000 units/ml) 5,000 units EVERY 12 HOURS SUBQ 03/18/20 21:00 05/02/20 20:59 UNV Insulin Aspart (NovoLOG) BEFORE MEALS AND HS SUBQ 03/18/20 16:30 06/16/20 16:29 Lorazepam (Ativan 2mg/ml 1ml) 2 mg EVERY 2 HOURS PRN IV For Anxiety 03/18/20 14:00 03/25/20 13:59 UNV Ondansetron HCl (Zofran) 4 mg Q6H PRN IVP Nausea & Vomiting 03/18/20 14:00 04/17/20 13:59 UNV Polyethylene Glycol (Miralax) 17 gm DAILYPRN PRN ORAL Constipation 03/18/20 14:00 04/17/20 13:59 UNV Promethazine HCl/ Codeine (Phenergan with Codeine) 5 ml Q4H PRN ORAL For Cough 03/18/20 14:00 04/17/20 13:59 UNV Vancomycin HCl 1 gm/Dextrose 275 ml @ 183.3 mls/ hr Q24H IV 03/18/20 23:00 03/23/20 22:59 UNV Assessment/Plan Problem List: (1) 2019 novel coronavirus disease (COVID-19) ICD Codes: U07.1 - COVID-19 SNOMED: 681213979 (2) UTI (urinary tract infection) ICD Codes: N39.0 - Urinary tract infection, site not specified SNOMED: 54780014 (3) Diabetes mellitus ICD Codes: E11.9 - Type 2 diabetes mellitus without complications SNOMED: 53939354 (4) History of hypertension ICD Codes: Z86.79 - Personal history of other diseases of the circulatory system SNOMED: 359061943 (5) Gout ICD Codes: M10.9 - Gout, unspecified SNOMED: 10101941 (6) HX: breast cancer ICD Codes: Z85.3 - Personal history of malignant neoplasm of breast SNOMED: 843194300 (7) Major depression, recurrent ICD Codes: F33.9 - Major depressive disorder, recurrent, unspecified SNOMED: 85807446 Assessment/Plan: hi culture respiratory isolation check urine culture ID evaluation sliding scale diabetic diet monitor BP Calli Lux MD Mar 18, 2020 14:07
[2020-03-18 14:09] VITALS: BP 126/75
--- NOTE | 2020-03-18 14:20 | NUR ---
NURSE NOTES:Handoff received. Patient arrived to the floor and placed on threat monitoring analyst, vital signs are stable, patient on room air. Patient placed on droplet and contact precautions for Covid-19, patient does not have any belongings. Oriented patient to room and call light. Bed in the low and locked position, will continue to monitor patient.
--- NOTE | 2020-03-18 14:30 | NUR ---
NURSE NOTES: Received patient in bed. Awake, A/O x2. On room air, respirations unlabored. VSS. Heart monitor in place. Bed low and locked, side rails up x2, call light within reach with return demonstration. IV in the Left AC, site intact. Patient denies pain.
[2020-03-18] MEDS ORDERED: ACETAMINOPHEN325 M1 ORAL (14:59)
[2020-03-18] MEDS ORDERED: ALLOPURINOL100 M1 ORAL (15:01)
[2020-03-18] MEDS ORDERED: NOVOLOG100 UNIT/5 SUBQ (15:22)
[2020-03-18] MEDS ORDERED: LIDOCAINE HC28.35 GM TP (15:25)
--- NOTE | 2020-03-18 15:31 | Consultation ---
History of Present Illness General Date patient seen: Mar 18, 2020 Chief Complaint: Fever Present Illness HPI 74 y/o F with hx of CHF, obesity, HTN, Dm2, CVA, COVID19 (dx'ed 03/15) presented to ED on 03/18 with worsening cough, 90% at RA. CXR done on 03/17 showed b/l infiltrates Denies fevers, headache, nausea, vomiting, chest pain, abdominal pain Allergies: Coded Allergies: No Known Allergies (Unverified , 09/17/12) Medication History Scheduled Allopurinol* (Allopurinol*), 100 MG ORAL DAILY, (Reported) Amlodipine Besylate* (Amlodipine Besylate*), 10 MG ORAL DAILY, (Reported) Ascorbic Acid* (Vitamin C*), 500 MG ORAL DAILY, (Reported) Aspirin (Aspirin), 81 MG PO DAILY, (Reported) Carvedilol (Coreg), 12.5 MG ORAL EVERY 12 HOURS, (Reported) Docusate Sodium* (Colace*), 100 MG ORAL QHS, (Reported) Escitalopram Oxalate* (Lexapro*), 5 MG ORAL DAILY, (Reported) Ferrous Sulfate* (Ferrous Sulfate*), 325 MG ORAL BID, (Reported) Furosemide* (Lasix*), 20 MG ORAL DAILY, (Reported) Gabapentin* (Gabapentin*), 300 MG ORAL THREE TIMES A DAY, (Reported) Hydrochlorothiazide* (Hydrochlorothiazide*), 12.5 MG ORAL DAILY, (Reported) Losartan Potassium* (Losartan Potassium*), 50 MG ORAL DAILY, (Reported) Magnesium Oxide (Magnesium), 400 MG PO DAILY, (Reported) Metformin Hcl* (Metformin Hcl*), 1,000 MG ORAL BID, (Reported) Multivitamin With Minerals (Multivitamins With Minerals*), 1 TAB ORAL DAILY, (Reported) Rosuvastatin Calcium* (Crestor*), 10 MG ORAL DAILY, (Reported) Scheduled PRN Acetaminophen* (Acetaminophen 325MG Tablet*), 650 MG ORAL Q4H PRN for For Pain, (Reported) Acetaminophen* (Acetaminophen 325MG Tablet*), 650 MG ORAL Q4H PRN for TEMP (Temp>101F), (Reported) Acetaminophen* (Acetaminophen Extra Strength*), 1,000 MG ORAL for For Pain, (Reported) Lidocaine Hcl (Lidocaine Hcl), GM TP BID PRN for BILATERAL KNEE PAIN, (Reported) Miscellaneous Medications Insulin Aspart (Novolog), UNITS SUBQ, (Reported) Discontinued Medications Acetaminophen* (Acetaminophen Extra Strength*), 1,000 MG ORAL Q6H, (Reported) Discontinued Reason: Prescription changed Allopurinol* (Allopurinol*), 200 MG ORAL DAILY Discontinued Reason: Pt stopped taking med Amlodipine Besylate* (Amlodipine Besylate*), 5 MG ORAL DAILY, (Reported) Discontinued Reason: Pt stopped taking med Escitalopram Oxalate* (Lexapro*), 10 MG ORAL DAILY Discontinued Reason: Pt stopped taking med Furosemide (Furosemide), 20 MG ORAL DAILY, (Reported) Discontinued Reason: Pt stopped taking med Gabapentin* (Gabapentin*), 100 MG ORAL THREE TIMES A DAY Discontinued Reason: Pt stopped taking med Insulin Aspart (Novolog Flexpen), 0 UNITS SUBQ BEFORE MEALS AND HS Discontinued Reason: Pt stopped taking med Insulin Regular, Human* (Novolin R*), 0 SUBQ .SLIDING SCALE, (Reported) Discontinued Reason: Pt stopped taking med Metformin Hcl* (Metformin Hcl*), 500 MG ORAL THREE TIMES A DAY, (Reported) Discontinued Reason: Pt stopped taking med Pantoprazole Sodium (Protonix), 40 MG ORAL DAILY, (Reported) Discontinued Reason: Pt stopped taking med Rosuvastatin Calcium (Crestor), 10 MG ORAL DAILY, (Reported) Discontinued Reason: Pt stopped taking med Spironolactone* (Spironolactone*), 50 MG ORAL DAILY, (Reported) Discontinued Reason: Pt stopped taking med Patient History Healthcare decision maker Resuscitation status Advanced Directive on File Patient History Narrative Pmhx: as above Shx: reviewed Fhx: non contributory Review of Systems All Other Systems: negative except mentioned in HPI Physical Exam Physical Exam Narrative General: Awake and alert, no acute distress, low-grade fever HEENT: NC/AT. EOMI. Cardiovascular: RRR. S1 and S2 normal. No murmur appreciated Resp: 2 L nasal cannula. Normal work of breathing. No cough, wheezing or crackles appreciated Abdomen: Abdomen is soft, nondistended. Nontender Skin: Intact. No abrasions, laceration or rash over the exposed skin MSK: Normal tone and bulk. Moving all extremities. No obvious deformity. Neuro: Awake and alert. Mentating appropriately though a poor historian. Last 24 Hour Vital Signs Date Time Temp Pulse Resp B/P (MAP) Pulse Ox O2 Delivery O2 Flow Rate FiO2 03/18/20 14:39 Room Air 03/18/20 14:09 98.2 73 18 126/75 (92) 96 03/18/20 13:40 98.1 76 19 126/87 96 Room Air 03/18/20 12:45 100.2 81 20 146/100 98 Nasal Cannula 2.0 03/18/20 10:25 83 22 Nasal Cannula 2.0 97 03/18/20 10:25 100.2 83 22 150/101 97 Nasal Cannula 2.0 03/18/20 09:39 100.2 81 24 198/110 (139) 97 Nasal Cannula 2.0 Laboratory Tests Test 03/18/20 10:05 03/18/20 10:51 White Blood Count 8.5 K/UL (4.8-10.8) Red Blood Count 4.12 M/UL (4.20-5.40) L Hemoglobin 11.2 G/DL (12.0-16.0) L Hematocrit 35.9 % (37.0-47.0) L Mean Corpuscular Volume 87 FL (80-99) Mean Corpuscular Hemoglobin 27.2 PG (27.0-31.0) Mean Corpuscular Hemoglobin Concent 31.2 G/DL (32.0-36.0) L Red Cell Distribution Width 15.0 % (11.6-14.8) H Platelet Count 324 K/UL (150-450) Mean Platelet Volume 6.2 FL (6.5-10.1) L Neutrophils (%) (Auto) 66.1 % (45.0-75.0) Lymphocytes (%) (Auto) 19.9 % (20.0-45.0) L Monocytes (%) (Auto) 10.1 % (1.0-10.0) H Eosinophils (%) (Auto) 1.2 % (0.0-3.0) Basophils (%) (Auto) 2.8 % (0.0-2.0) H Prothrombin Time 10.5 SEC (9.30-11.50) Prothromb Time International Ratio 0.9 (0.9-1.1) Activated Partial Thromboplast Time 27 SEC (23-33) D-Dimer 0.70 mg/L FEU (0.00-0.49) H Sodium Level 141 MMOL/L (136-145) Potassium Level 4.4 MMOL/L (3.5-5.1) Chloride Level 100 MMOL/L (98-107) Carbon Dioxide Level 31 MMOL/L (21-32) Anion Gap 10 mmol/L (5-15) Blood Urea Nitrogen 26 mg/dL (7-18) H Creatinine 1.1 MG/DL (0.55-1.30) Estimat Glomerular Filtration Rate 59.0 mL/min (>60) Glucose Level 143 MG/DL (74-106) H Lactic Acid Level 1.00 mmol/L (0.4-2.0) Calcium Level 8.9 MG/DL (8.5-10.1) Ferritin 299 NG/ML (8-388) Total Bilirubin 0.5 MG/DL (0.2-1.0) Aspartate Amino Transf (AST/SGOT) 30 U/L (15-37) Alanine Aminotransferase (ALT/SGPT) 24 U/L (12-78) Alkaline Phosphatase 111 U/L (46-116) Lactate Dehydrogenase 207 U/L (81-234) Total Creatine Kinase 58 U/L (26-308) Creatine Kinase MB < 0.5 NG/ML (0.0-3.6) Creatine Kinase MB Relative Index 0.8 Troponin I 0.000 ng/mL (0.000-0.056) C-Reactive Protein, Quantitative 6.7 mg/dL (0.00-0.90) H Pro-B-Type Natriuretic Peptide 86 pg/mL (0-125) Total Protein 8.6 G/DL (6.4-8.2) H Albumin 3.6 G/DL (3.4-5.0) Globulin 5.0 g/dL Albumin/Globulin Ratio 0.7 (1.0-2.7) L Lipase 59 U/L (73-393) L Urine Color Yellow Urine Appearance Slightly cloudy Urine pH 6.5 (4.5-8.0) Urine Specific [place] 1.010 (1.005-1.035) Urine Protein 3+ (NEGATIVE) H Urine Glucose (UA) Negative (NEGATIVE) Urine Ketones Negative (NEGATIVE) Urine Blood 5+ (NEGATIVE) H Urine Nitrite Positive (NEGATIVE) H Urine Bilirubin Negative (NEGATIVE) Urine Urobilinogen 1 MG/DL (0.0-1.0) H Urine Leukocyte Esterase 3+ (NEGATIVE) H Urine RBC 10-15 /HPF (0 - 2) H Urine WBC 60-80 /HPF (0 - 2) H Urine Squamous Epithelial Cells Moderate /LPF (NONE/OCC) H Urine Bacteria Moderate /HPF (NONE) H Microbiology Date/Time Source Procedure Growth Status 03/18/20 11:11 Rectum Received 03/18/20 10:51 Nasopharynx SARS-CoV-2 RdRp Gene Assay - Final Complete Height (Feet): 5 Height (Inches): 5.00 Weight (Pounds): 225 Medications Current Medications Medications (Trade) Dose Ordered Sig/Nick Route PRN Reason Start Time Stop Time Status Last Admin Dose Admin Acetaminophen (Tylenol) 650 mg Q4H PRN ORAL FEVER 03/18/20 14:00 04/17/20 13:59 Albuterol/ Ipratropium (Albuterol/ Ipratropium) 3 ml Q4H PRN HHN Shortness of Breath 03/18/20 14:00 03/23/20 13:59 Allopurinol (Zyloprim) 200 mg DAILY ORAL 03/19/20 09:00 04/18/20 08:59 Amlodipine Besylate (Norvasc) 5 mg DAILY ORAL 03/19/20 09:00 04/18/20 08:59 Carvedilol (Coreg) 12.5 mg EVERY 12 HOURS ORAL 03/18/20 21:00 04/17/20 20:59 Cefepime HCl 2 gm/ Dextrose 110 ml @ 220 mls/hr Q24H IV 03/18/20 21:00 03/25/20 20:59 Dextrose (Dextrose 50%) 25 ml Q30M PRN IV Hypoglycemia 03/18/20 14:00 06/16/20 13:59 Dextrose (Dextrose 50%) 50 ml Q30M PRN IV Hypoglycemia 03/18/20 14:00 06/16/20 13:59 Enoxaparin Sodium (Lovenox) 40 mg Q12HR SUBQ 03/18/20 12:30 06/16/20 12:29 03/18/20 12:37 Escitalopram Oxalate (Lexapro) 5 mg DAILY ORAL 03/19/20 09:00 04/18/20 08:59 Heparin Sodium (Porcine) (Heparin 5000 units/ml) 5,000 units EVERY 12 HOURS SUBQ 03/18/20 21:00 05/02/20 20:59 Insulin Aspart (NovoLOG) BEFORE MEALS AND HS SUBQ 03/18/20 16:30 06/16/20 16:29 Lorazepam (Ativan 2mg/ml 1ml) 2 mg Q2H PRN IV For Anxiety 03/18/20 14:00 03/25/20 13:59 Ondansetron HCl (Zofran) 4 mg Q6H PRN IVP Nausea & Vomiting 03/18/20 14:00 04/17/20 13:59 Polyethylene Glycol (Miralax) 17 gm DAILYPRN PRN ORAL Constipation 03/18/20 14:00 04/17/20 13:59 Promethazine HCl/ Codeine (Phenergan with Codeine) 5 ml Q4H PRN ORAL For Cough 03/18/20 14:00 04/17/20 13:59 Vancomycin HCl (Vanco pharmacy to dose) 1 ea DAILY PRN MISC . 03/18/20 14:15 04/17/20 14:14 Vancomycin HCl 750 mg/Sodium Chloride 250 ml @ 166.667 mls/hr Q12HR@0400,1600 IVPB 03/18/20 16:00 03/23/20 15:59 Assessment/Plan Assessment/Plan: Abx: IV Vancomycin 03/18- Cefepime 03/18- Ceftriaxone x1 03/18 Azithromycin x1 03/18 Assessment: COVID19 Pneumonia(dx'ed 03/15) Acute hypoxic resp failure- sp OR, now at -03/18 rapid COVID PCR + CXR: Possible early infiltrate right midlung. Low grade fever No leukocytosis Probable UTI -u/a wbc 60-80, nit +, leuk +3; ucx p CHF obesity HTN Dm2 CVA Plan: -Continue empiric IV Vancomcyin, Cefepime, Azithromycin #2 -Decadron #1 -Patient is currently at and does not meet C criteria for Remdesevir- if decompensates requiring O2, will request -f/u cx -Monitor CBC/CMP, temperatures -COVID19 isolation Thank you for consulting [facility]. Will continue to follow along with you. Discussed with Kathryn Bonilla M.D. Mar 18, 2020 15:31
[2020-03-18 16:00] VITALS: BP 142/64
[2020-03-18] MEDS: NovoLOG Insulin Flexpen SUBQ SCH ×2 (16:59→21:12)
--- NOTE | 2020-03-18 18:11 | History & Physical ---
History and Physical History & Physicial Papa French MD Mar 18, 2020 18:11
--- NOTE | 2020-03-18 18:22 | NUR ---
NURSE NOTES: Patient attempted to cough up sputum for specimen collection. Per patient she is unable to provide sputum.
--- NOTE | 2020-03-18 18:51 | NUR ---
NURSE NOTES: Pictures taken for sacrum.
--- NOTE | 2020-03-18 19:28 | NUR ---
Received report from PRITESH Anderson. Pt in bed awake, alert, oriented x2.able to make needs known. On O2 via NC at 2L/min, no resp distress noted. On cardiac monitoring. IV 20G in left AC in place & patent. Bed in low position & locked, side rail up x3. Bed alarm on. Call light with in reach. Remained pt to use call light for assistance.
--- NOTE | 2020-03-18 19:31 | NUR ---
NURSE HAND-OFF REPORT: Important Events on Shift:[admit, IV antibiotics] Patient Status: [FULL CODE] Diet: [CCHO medium] Pending Orders: [] Pending Results/Labs:[] Pending MD notification:[] Latest Vital Signs: Temperature 97.7 , Pulse 89 , B/P 142 /64 , Respiratory Rate 18 , O2 SAT 93 , Room Air, O2 Flow Rate 2.0 . Vital Sign Comment: [] EKG Rhythm: Sinus Rhythm Rhythm change?: N MD Notified?: - MD Response: Latest Garcia Fall Score: 35 Fall Risk: Medium Risk Safety Measures: Call light Within Reach, Bed Alarm Zone 2, Side Rails Side Rails x3, Bed position Low and Locked. Fall Precautions: Yellow Socks Patient Fall Education Report given to [Dafne RN].
[2020-03-18 20:00] VITALS: BP 150/85
[2020-03-18] MEDS: Cefepime HCl 2 GM in D5W 110 ML IV SCH (20:59)
[2020-03-18] MEDS: Carvedilol 12.5mg tab ORAL SCH (20:59)
[2020-03-18 21:00] VITALS: BP 150/85
[2020-03-18] MEDS: Heparin 5000 units/ml inj SUBQ SCH (21:01)
[2020-03-18] MEDS ORDERED: Vancomycin 1 GM in D5W 275 ML IV SCH (23:00)
[2020-03-19] VITALS: BP 146/56
[2020-03-19 04:00] VITALS: BP 137/62
[2020-03-19] MEDS: NovoLOG Insulin Flexpen SUBQ SCH ×4 (05:55→20:43)
--- NOTE | 2020-03-19 07:30 | NUR ---
NURSE NOTES: Received patient in bed awake. O2 via NC in place, no SOB or acute distress. IV line intact. HOB elevated. Bed locked in low position. Call light within reach. Will continue plan of care.
[2020-03-19 08:00] VITALS: BP 140/65
[2020-03-19] MEDS: Allopurinol 100mg Tab ORAL SCH (08:49)
[2020-03-19] MEDS: Carvedilol 12.5mg tab ORAL SCH ×2 (08:50→20:35)
[2020-03-19] MEDS: Azithromycin 250mg tab ORAL SCH (08:50)
[2020-03-19] MEDS: Heparin 5000 units/ml inj SUBQ SCH ×2 (08:52→20:34)
--- NOTE | 2020-03-19 09:06 | Pulmonology Progress Note ---
Subjective ROS Limited/Unobtainable: No Constitutional: Reports: no symptoms HEENT: Repors: no symptoms Allergies: Coded Allergies: No Known Allergies (Unverified , 09/17/12) Objective Last 24 Hour Vital Signs Date Time Temp Pulse Resp B/P (MAP) Pulse Ox O2 Delivery O2 Flow Rate FiO2 03/19/20 08:50 77 140/65 03/19/20 08:50 77 140/65 03/19/20 08:00 99.0 77 20 140/65 (90) 94 03/19/20 04:00 99.1 88 19 137/62 (87) 94 03/19/20 04:00 56 03/19/20 00:00 63 03/19/20 00:00 99.0 75 20 146/56 (86) 93 03/18/20 21:00 Nasal Cannula 2.0 03/18/20 20:59 80 144/68 03/18/20 20:00 97.0 73 20 150/85 (106) 94 03/18/20 20:00 74 03/18/20 16:00 89 03/18/20 16:00 97.7 81 18 142/64 (90) 93 03/18/20 14:39 Room Air 03/18/20 14:09 98.2 73 18 126/75 (92) 96 03/18/20 13:40 98.1 76 19 126/87 96 Room Air 03/18/20 12:45 100.2 81 20 146/100 98 Nasal Cannula 2.0 03/18/20 10:25 83 22 Nasal Cannula 2.0 97 03/18/20 10:25 100.2 83 22 150/101 97 Nasal Cannula 2.0 03/18/20 09:39 100.2 81 24 198/110 (139) 97 Nasal Cannula 2.0 Intake and Output 03/18/20 03/19/20 19:00 07:00 Intake Total 100 ml 300 ml Balance 100 ml 300 ml Intake Oral 100 ml 300 ml # Voids 2 3 # Bowel Movements 1 1 General Appearance: WD/WN HEENT: normocephalic, atraumatic Respiratory: chest wall non-tender, lungs clear Breasts: no masses Cardiovascular: normal peripheral pulses, normal rate Genitourinary: normal external genitalia Extremities: no cyanosis Skin: no lesions Neurologic: blue line trimmer II-XII grossly normal Microbiology Date/Time Source Procedure Growth Status 03/18/20 11:11 Rectum Received 03/18/20 10:51 Nasopharynx SARS-CoV-2 RdRp Gene Assay - Final Complete 03/18/20 10:05 Blood Blood Culture - Preliminary Resulted 03/18/20 09:50 Blood Blood Culture - Preliminary Resulted Laboratory Tests 03/18/20 10:05: White Blood Count 8.5, Red Blood Count 4.12L, Hemoglobin 11.2L, Hematocrit 35.9L , Mean Corpuscular Volume 87, Mean Corpuscular Hemoglobin 27.2, Mean Corpuscular Hemoglobin Concent 31.2L, Red Cell Distribution Width 15.0H, Platelet Count 324, Mean Platelet Volume 6.2L, Neutrophils (%) (Auto) 66.1, Lymphocytes (%) (Auto) 19.9L, Monocytes (%) (Auto) 10.1H, Eosinophils (%) (Auto) 1.2, Basophils (%) (Auto) 2.8H, Prothrombin Time 10.5, Prothromb Time International Ratio 0.9, Activated Partial Thromboplast Time 27, D-Dimer 0.70H, Sodium Level 141, Potassium Level 4.4, Chloride Level 100, Carbon Dioxide Level 31, Anion Gap 10, Blood Urea Nitrogen 26H, Creatinine 1.1, Estimat Glomerular Filtration Rate 59.0, Glucose Level 143H, Lactic Acid Level 1.00, Calcium Level 8.9, Ferritin 299, Total Bilirubin 0.5, Aspartate Amino Transf (AST/SGOT) 30, Alanine Aminotransferase (ALT/SGPT) 24, Alkaline Phosphatase 111, Lactate Dehydrogenase 207, Total Creatine Kinase 58, Creatine Kinase MB < 0.5, Creatine Kinase MB Relative Index 0.8, Troponin I 0.000, C-Reactive Protein, Quantitative 6.7H, Pro-B-Type Natriuretic Peptide 86, Total Protein 8.6H, Albumin 3.6, Globulin 5.0, Albumin/Globulin Ratio 0.7L, Lipase 59L 03/18/20 10:51: Urine Color Yellow, Urine Appearance Slightly cloudy, Urine pH 6.5, Urine Sp ecific [place] 1.010, Urine Protein 3+H, Urine Glucose (UA) Negative, Urine Ketones Negative, Urine Blood 5+H, Urine Nitrite PositiveH, Urine Bilirubin Negative, Urine Urobilinogen 1H, Urine Leukocyte Esterase 3+H, Urine RBC 10-15H, Urine WBC 60-80H, Urine Squamous Epithelial Cells ModerateH, Urine Bacteria ModerateH 03/18/20 15:31: POC Whole Blood Glucose [Pending] 03/18/20 20:48: POC Whole Blood Glucose 219H 03/19/20 05:47: POC Whole Blood Glucose 173H Current Medications Medications (Trade) Dose Ordered Sig/Nick Route PRN Reason Start Time Stop Time Status Last Admin Dose Admin Acetaminophen (Tylenol) 650 mg Q4H PRN ORAL FEVER 03/18/20 14:00 04/17/20 13:59 Albuterol/ Ipratropium (Albuterol/ Ipratropium) 3 ml Q4H PRN HHN Shortness of Breath 03/18/20 14:00 03/23/20 13:59 Allopurinol (Zyloprim) 200 mg DAILY ORAL 03/19/20 09:00 04/18/20 08:59 03/19/20 08:49 Amlodipine Besylate (Norvasc) 5 mg DAILY ORAL 03/19/20 09:00 04/18/20 08:59 03/19/20 08:50 Azithromycin (Zithromax) 500 mg DAILY ORAL 03/19/20 09:00 03/26/20 08:59 03/19/20 08:50 Carvedilol (Coreg) 12.5 mg EVERY 12 HOURS ORAL 03/18/20 21:00 04/17/20 20:59 03/19/20 08:50 Cefepime HCl 2 gm/ Dextrose 110 ml @ 220 mls/hr Q24H IV 03/18/20 21:00 03/25/20 20:59 03/18/20 20:59 Dexamethasone Sodium Phosphate (Decadron 4mg/ml vial) 6 mg DAILY IVP 03/19/20 09:00 03/28/20 08:59 03/19/20 08:51 Dextrose (Dextrose 50%) 25 ml Q30M PRN IV Hypoglycemia 03/18/20 14:00 06/16/20 13:59 Dextrose (Dextrose 50%) 50 ml Q30M PRN IV Hypoglycemia 03/18/20 14:00 06/16/20 13:59 Escitalopram Oxalate (Lexapro) 5 mg DAILY ORAL 03/19/20 09:00 04/18/20 08:59 03/19/20 08:49 Heparin Sodium (Porcine) (Heparin 5000 units/ml) 5,000 units EVERY 12 HOURS SUBQ 03/18/20 21:00 05/02/20 20:59 03/19/20 08:52 Insulin Aspart (NovoLOG) BEFORE MEALS AND HS SUBQ 03/18/20 16:30 06/16/20 16:29 03/19/20 05:55 Lorazepam (Ativan 2mg/ml 1ml) 2 mg Q2H PRN IV For Anxiety 03/18/20 14:00 03/25/20 13:59 Ondansetron HCl (Zofran) 4 mg Q6H PRN IVP Nausea & Vomiting 03/18/20 14:00 04/17/20 13:59 Polyethylene Glycol (Miralax) 17 gm DAILYPRN PRN ORAL Constipation 03/18/20 14:00 04/17/20 13:59 Promethazine HCl/ Codeine (Phenergan with Codeine) 5 ml Q4H PRN ORAL For Cough 03/18/20 14:00 04/17/20 13:59 Vancomycin HCl (Vanco pharmacy to dose) 1 ea DAILY PRN MISC . 03/18/20 14:15 04/17/20 14:14 Vancomycin HCl 750 mg/Sodium Chloride 250 ml @ 166.667 mls/hr Q12HR@0400,1600 IVPB 03/18/20 16:00 03/23/20 15:59 03/19/20 04:07 Assessment/Plan Problems: (1) 2019 novel coronavirus disease (COVID-19) (2) UTI (urinary tract infection) (3) Diabetes mellitus (4) History of hypertension (5) Gout (6) HX: breast cancer (7) Major depression, recurrent Assessment/Plan hi culture, BC are positive for [facility] respiratory isolation check urine culture ID evaluation appreciated sliding scale diabetic diet monitor BP Calli Lux MD Mar 19, 2020 09:06
--- NOTE | 2020-03-19 09:53 | NUR ---
NURSE NOTES: Relayed blood culture result to dr larson, awaiting response. Patient positive for gram positive cocci in clusters for 2 aerobic bottles. Addendum: 03/19/20 at 1026 by Rosa Dahl RN Relayed blood culture to Dr Garcia as instructed by Dr Larson, awaiting response. Addendum: 03/19/20 at 1140 by Rosa Dahl RN For repeat blood culture x [address] Garcia
--- NOTE | 2020-03-19 09:59 | History and Physical Report ---
DATE OF ADMISSION: 03/18/2020 CHIEF COMPLAINT: Shortness of breath and fever. HISTORY OF PRESENT ILLNESS: This is a 74-year-old female with past medical history significant for congestive heart failure, morbid obesity, hypertension, diabetes type 2, stroke, who presented to the hospital from nursing facility after she was noted to have COVID-19 pneumonia recently. The patient presented complaining of shortness of breath and cough, noted saturation 90% on room, worsening of cough. COVID swab was performed on 03/15/2020 which was positive for 03/17/2020. X-ray on 03/17/2020 confirmed bilateral infiltrate and the patient was subsequently referred to the hospital from nursing facility for COVID-19 pneumonia. Shortly after initial evaluation in the emergency department, the patient was admitted to the hospital with acute hypoxemic respiratory failure due to the COVID-19 pneumonia. The patient denies any nausea or vomiting, had a fever. Denies any headache. Denies any chest pain, abdominal pain, or loss of consciousness. PAST MEDICAL HISTORY/PAST SURGICAL HISTORY: As above history of obesity, hypertension, diabetes type 2, congestive heart failure, history of stroke about 2 years ago. MEDICATIONS: At the nursing facility, please refer to medication reconciliation. ALLERGIES: No known drug allergies. SOCIAL HISTORY: [facility] resident. No smoking, alcohol, or drugs. FAMILY HISTORY: Noncontributory. REVIEW OF SYSTEMS: Mostly as above, shortness of breath, fever, cough. Denies any hemoptysis or hematochezia. Denies any bright red blood per rectum. Denies any loss of consciousness. PHYSICAL EXAMINATION: VITAL SIGNS: On admission, temperature is 100.2, pulse of 81, respirations 24, blood pressure 198/110. GENERAL: The patient awake, responsive, no acute distress. HEENT: Head and neck examination, pupils are equal and reactive to light. Extraocular muscles intact. Neck was supple. No JVD. LUNGS: Good air entry. Decreased air in bases. HEART: S1, S2. Regular rhythm. No gallops. ABDOMEN: Soft, nontender, nondistended. Mildly obese. EXTREMITIES: No cyanosis, clubbing, or edema. NEUROLOGIC: Cranial nerves II through XII grossly intact. The patient moving all extremities. RECTAL: Refused and deferred. GENITOURINARY: Refused and deferred. PSYCHIATRIC: Mood and affect is intact. LABORATORY AND DIAGNOSTIC DATA: Laboratory on admission from the emergency department, WBC of 8.5, hemoglobin 11, hematocrit 35, platelet is 324. Sodium 141, potassium 4.4, chloride 100, bicarb 31, BUN 23, creatinine 1.1, GFR 59, glucose is 143. Ferritin is 299. AST of 30, ALT of 24, alkaline phosphatase was 111. First troponin 0.00. Total protein is 8.6. Lipase is 59. PT of 10, INR 0.9, PTT of 27. D-dimer 0.70. UA wbc's of 60 to 80, moderate bacteria, moderate epithelial cell, +5 blood, +3 protein, +3 leukocyte esterase. Rapid COVID-19 test is positive. Chest x-ray early infiltrate in the right mid lung. ASSESSMENT: 1. COVID-19 pneumonia. 2. Acute hypoxemic respiratory failure. 3. Low-grade fever, possible due to the pneumonia. 4. Possible urinary tract infection. 5. Congestive heart failure, chronic. 6. Obesity. 7. Hypertension. 8. Diabetes type 2. 9. History of CVA. PLAN: Admit the patient to monitored unit. We will start the patient on broad-spectrum antibiotic, vancomycin, cefepime, and azithromycin. Start the patient on Decadron IV. At this time, we will hold off on Remdesivir therapy due to the patient's oxygen saturation has been stable. Follow up with the laboratory cultures. DVT prophylaxis, heparin subcutaneous. Code status is Full Code. Follow up with Dr. Calli Lux, Pulmonary Critical Care as well as Dr. Hernandez from Infectious Disease consultation. Papa French M.D. DR: Romario JOB#: [id number] CC:
--- NOTE | 2020-03-19 11:30 | NUR ---
NURSE NOTES: Relayed rhythm strip to Dr Lux, no new orders.
[2020-03-19 12:00] VITALS: BP 138/68
--- NOTE | 2020-03-19 12:50 | Infectious Diseases Prog Note ---
Assessment/Plan Abx: IV Vancomycin 03/18- Cefepime 03/18- Ceftriaxone x1 03/18 Azithromycin x1 03/18 Assessment: COVID19 Pneumonia(dx'ed 03/15) Acute hypoxic resp failure- sp NC, now on 2 Lit O2 -03/18 rapid COVID PCR + CXR: Possible early infiltrate right midlung. Low grade fever No leukocytosis Probable UTI -u/a wbc 60-80, nit +, leuk +3; ucx p CHF obesity HTN Dm2 CVA Plan: -Continue empiric IV Vancomcyin, Cefepime, Azithromycin # 3 -Decadron #2 -Patient is on 2 L NC: and O2 Sat on RA 93% will DW pt about RDV -f/u cx -Monitor CBC/CMP, temperatures -COVID19 isolation Pt agrees with RDV That the patient/ has been: a) Given the Fact Sheet for Patients and Parents/Caregivers( Asled RN to provide it the facts sheet) (helps patient understand risks and benefits)b. Informed of alternatives to receiving remdesivir, and c. Informed that remdesivir is an unapproved drug that is authorized for use under EUA Subjective Allergies: Coded Allergies: No Known Allergies (Unverified , 09/17/12) afebrile no active infection Objective Last 24 Hour Vital Signs Date Time Temp Pulse Resp B/P (MAP) Pulse Ox O2 Delivery O2 Flow Rate FiO2 03/19/20 12:00 98.8 65 18 138/68 (91) 93 03/19/20 09:00 Nasal Cannula 2.0 03/19/20 08:50 77 140/65 03/19/20 08:50 77 140/65 03/19/20 08:00 81 03/19/20 08:00 99.0 77 20 140/65 (90) 94 03/19/20 04:00 99.1 88 19 137/62 (87) 94 03/19/20 04:00 56 03/19/20 00:00 63 03/19/20 00:00 99.0 75 20 146/56 (86) 93 03/18/20 21:00 Nasal Cannula 2.0 03/18/20 20:59 80 144/68 03/18/20 20:00 97.0 73 20 150/85 (106) 94 03/18/20 20:00 74 03/18/20 16:00 89 03/18/20 16:00 97.7 81 18 142/64 (90) 93 03/18/20 14:39 Room Air 03/18/20 14:09 98.2 73 18 126/75 (92) 96 03/18/20 13:40 98.1 76 19 126/87 96 Room Air Height (Feet): 5 Height (Inches): 5.00 Weight (Pounds): 225 HEENT: atraumatic Respiratory/Chest: normal breath sounds Cardiovascular: regularly irregular Microbiology Date/Time Source Procedure Growth Status 03/18/20 11:11 Rectum Received 03/18/20 10:51 Nasopharynx SARS-CoV-2 RdRp Gene Assay - Final Complete 03/18/20 10:05 Blood Blood Culture - Preliminary Resulted 03/18/20 09:50 Blood Blood Culture - Preliminary Resulted Laboratory Tests Test 03/18/20 15:31 03/18/20 20:48 03/19/20 05:47 03/19/20 11:52 POC Whole Blood Glucose Pending 219 MG/DL (74-106) H 173 MG/DL (74-106) H 241 MG/DL (74-106) H Current Medications Medications (Trade) Dose Ordered Sig/Nick Route PRN Reason Start Time Stop Time Status Last Admin Dose Admin Acetaminophen (Tylenol) 650 mg Q4H PRN ORAL FEVER 03/18/20 14:00 04/17/20 13:59 Albuterol/ Ipratropium (Albuterol/ Ipratropium) 3 ml Q4H PRN HHN Shortness of Breath 03/18/20 14:00 03/23/20 13:59 Allopurinol (Zyloprim) 200 mg DAILY ORAL 03/19/20 09:00 04/18/20 08:59 03/19/20 08:49 Amlodipine Besylate (Norvasc) 5 mg DAILY ORAL 03/19/20 09:00 04/18/20 08:59 03/19/20 08:50 Azithromycin (Zithromax) 500 mg DAILY ORAL 03/19/20 09:00 03/26/20 08:59 03/19/20 08:50 Carvedilol (Coreg) 12.5 mg EVERY 12 HOURS ORAL 03/18/20 21:00 04/17/20 20:59 03/19/20 08:50 Cefepime HCl 2 gm/ Dextrose 110 ml @ 220 mls/hr Q24H IV 03/18/20 21:00 03/25/20 20:59 03/18/20 20:59 Dexamethasone Sodium Phosphate (Decadron 4mg/ml vial) 6 mg DAILY IVP 03/19/20 09:00 03/28/20 08:59 03/19/20 08:51 Dextrose (Dextrose 50%) 25 ml Q30M PRN IV Hypoglycemia 03/18/20 14:00 06/16/20 13:59 Dextrose (Dextrose 50%) 50 ml Q30M PRN IV Hypoglycemia 03/18/20 14:00 06/16/20 13:59 Escitalopram Oxalate (Lexapro) 5 mg DAILY ORAL 03/19/20 09:00 04/18/20 08:59 03/19/20 08:49 Heparin Sodium (Porcine) (Heparin 5000 units/ml) 5,000 units EVERY 12 HOURS SUBQ 03/18/20 21:00 05/02/20 20:59 03/19/20 08:52 Insulin Aspart (NovoLOG) BEFORE MEALS AND HS SUBQ 03/18/20 16:30 06/16/20 16:29 03/19/20 12:09 Lorazepam (Ativan 2mg/ml 1ml) 2 mg Q2H PRN IV For Anxiety 03/18/20 14:00 03/25/20 13:59 Ondansetron HCl (Zofran) 4 mg Q6H PRN IVP Nausea & Vomiting 03/18/20 14:00 04/17/20 13:59 Polyethylene Glycol (Miralax) 17 gm DAILYPRN PRN ORAL Constipation 03/18/20 14:00 04/17/20 13:59 Promethazine HCl/ Codeine (Phenergan with Codeine) 5 ml Q4H PRN ORAL For Cough 03/18/20 14:00 04/17/20 13:59 Vancomycin HCl ([facility] pharmacy to dose) 1 ea DAILY PRN MISC . 03/18/20 14:15 04/17/20 14:14 Vancomycin HCl 750 mg/Sodium Chloride 250 ml @ 166.667 mls/hr Q12HR@0400,1600 IVPB 03/18/20 16:00 03/23/20 15:59 03/19/20 04:07 De Garcia MD Mar 19, 2020 12:50
--- NOTE | 2020-03-19 15:46 | Internal Med Progress Note ---
Subjective Date of Service: Mar 19, 2020 Physician Name KelloggBk Attending Physician Papa French MD Current Medications Medications (Trade) Dose Ordered Sig/Nick Route PRN Reason Start Time Stop Time Status Last Admin Dose Admin Acetaminophen (Tylenol) 650 mg Q4H PRN ORAL FEVER 03/18/20 14:00 04/17/20 13:59 Albuterol/ Ipratropium (Albuterol/ Ipratropium) 3 ml Q4H PRN HHN Shortness of Breath 03/18/20 14:00 03/23/20 13:59 Allopurinol (Zyloprim) 200 mg DAILY ORAL 03/19/20 09:00 04/18/20 08:59 03/19/20 08:49 Amlodipine Besylate (Norvasc) 5 mg DAILY ORAL 03/19/20 09:00 04/18/20 08:59 03/19/20 08:50 Azithromycin (Zithromax) 500 mg DAILY ORAL 03/19/20 09:00 03/26/20 08:59 03/19/20 08:50 Carvedilol (Coreg) 12.5 mg EVERY 12 HOURS ORAL 03/18/20 21:00 04/17/20 20:59 03/19/20 08:50 Cefepime HCl 2 gm/ Dextrose 110 ml @ 220 mls/hr Q24H IV 03/18/20 21:00 03/25/20 20:59 03/18/20 20:59 Dexamethasone Sodium Phosphate (Decadron 4mg/ml vial) 6 mg DAILY IVP 03/19/20 09:00 03/28/20 08:59 03/19/20 08:51 Dextrose (Dextrose 50%) 25 ml Q30M PRN IV Hypoglycemia 03/18/20 14:00 06/16/20 13:59 Dextrose (Dextrose 50%) 50 ml Q30M PRN IV Hypoglycemia 03/18/20 14:00 06/16/20 13:59 Escitalopram Oxalate (Lexapro) 5 mg DAILY ORAL 03/19/20 09:00 04/18/20 08:59 03/19/20 08:49 Heparin Sodium (Porcine) (Heparin 5000 units/ml) 5,000 units EVERY 12 HOURS SUBQ 03/18/20 21:00 05/02/20 20:59 03/19/20 08:52 Insulin Aspart (NovoLOG) BEFORE MEALS AND HS SUBQ 03/18/20 16:30 06/16/20 16:29 03/19/20 12:09 Lorazepam (Ativan 2mg/ml 1ml) 2 mg Q2H PRN IV For Anxiety 03/18/20 14:00 03/25/20 13:59 Ondansetron HCl (Zofran) 4 mg Q6H PRN IVP Nausea & Vomiting 03/18/20 14:00 04/17/20 13:59 Polyethylene Glycol (Miralax) 17 gm DAILYPRN PRN ORAL Constipation 03/18/20 14:00 04/17/20 13:59 Promethazine HCl/ Codeine (Phenergan with Codeine) 5 ml Q4H PRN ORAL For Cough 03/18/20 14:00 04/17/20 13:59 Vancomycin HCl ([facility] pharmacy to dose) 1 ea DAILY PRN MISC . 03/18/20 14:15 04/17/20 14:14 Vancomycin HCl 750 mg/Sodium Chloride 250 ml @ 166.667 mls/hr Q12HR@0400,1600 IVPB 03/18/20 16:00 03/23/20 15:59 03/19/20 04:07 Allergies: Coded Allergies: No Known Allergies (Unverified , 09/17/12) ROS Limited/Unobtainable: Yes Subjective 74 YO F admitted with fever. Now COVID 19 positive and pneumonia. Cover for Int Med-Dr French Objective Last Vital Signs Date Time Temp Pulse Resp B/P (MAP) Pulse Ox O2 Delivery O2 Flow Rate FiO2 03/19/20 12:00 69 03/19/20 12:00 98.8 18 138/68 (91) 93 03/19/20 09:00 Nasal Cannula 2.0 03/18/20 10:25 97 Laboratory Tests Test 03/18/20 20:48 03/19/20 05:47 03/19/20 11:52 POC Whole Blood Glucose 219 MG/DL (74-106) H 173 MG/DL (74-106) H 241 MG/DL (74-106) H Microbiology Date/Time Source Procedure Growth Status 03/18/20 11:11 Rectum Received 03/18/20 10:51 Nasopharynx SARS-CoV-2 RdRp Gene Assay - Final Complete 03/18/20 10:05 Blood Blood Culture - Preliminary Resulted 03/18/20 09:50 Blood Blood Culture - Preliminary Resulted Intake and Output 03/18/20 03/19/20 19:00 07:00 Intake Total 100 ml 300 ml Balance 100 ml 300 ml Intake Oral 100 ml 300 ml # Voids 2 3 # Bowel Movements 1 1 Objective PHYSICAL EXAMINATION: GENERAL: The patient awake, responsive, no acute distress. HEENT: Head and neck examination, pupils are equal and reactive to light. Extraocular muscles intact. Neck was supple. No JVD. LUNGS: Good air entry. Decreased air in bases. HEART: S1, S2. Regular rhythm. No gallops. ABDOMEN: Soft, nontender, nondistended. Mildly obese. EXTREMITIES: No cyanosis, clubbing, or edema. NEUROLOGIC: Cranial nerves II through XII grossly intact. The patient moving all extremities. RECTAL: Refused and deferred. GENITOURINARY: Refused and deferred. PSYCHIATRIC: Mood and affect is intact. Assessment/Plan Assessment/Plan ASSESSMENT: 1. COVID-19 pneumonia. 2. Acute hypoxemic respiratory failure. 3. Low-grade fever, possible due to the pneumonia. 4. Possible urinary tract infection. 5. Congestive heart failure, chronic. 6. Obesity. 7. Hypertension. 8. Diabetes type 2. 9. History of CVA. PLAN: Admit the patient to monitored unit. We will start the patient on broad-spectrum antibiotic, vancomycin, cefepime, and azithromycin. Start the patient on Decadron IV. At this time, we will hold off on Remdesivir therapy due to the patient's oxygen saturation has been stable. Follow up with the laboratory cultures. DVT prophylaxis, heparin subcutaneous. Code status is Full Code. Follow up with Dr. Calli Lux, Pulmonary Critical Care as well as Dr. Hernandez from Infectious Disease consultation. Bk Kellogg MD Mar 19, 2020 15:46
[2020-03-19 16:00] VITALS: BP 145/72
--- NOTE | 2020-03-19 18:47 | NUR ---
NURSE HAND-OFF REPORT: Important Events on Shift:wound nurse recommended wound consult for sacral redness Patient Status: stable, on room air Diet: ccho med Pending Orders: sputum culture, repeat blood culture x2 Pending Results/Labs:mrsa, vre, cre Pending notification: Latest Vital Signs: Temperature 98.9 , Pulse 72 , B/P 145 /72 , Respiratory Rate 20 , O2 SAT 94 , Nasal Cannula, O2 Flow Rate 2.0 . Vital Sign Comment: EKG Rhythm: Sinus Rhythm Rhythm change?: N Notified?: N -Dr Jose J BADILLO Response: No New Orders Received Latest Garcia Fall Score: 50 Fall Risk: High Risk Safety Measures: Call light Within Reach, Bed Alarm Zone 2, Side Rails Side Rails x2, Bed position Low and Locked. Fall Precautions: Yellow Socks Yellow Gown Door Sign Patient Fall Education . Addendum: 03/19/20 at 1921 by Rosa Dahl RN HAND-OFF: Report given to Dafne FERNÁNDEZ
--- NOTE | 2020-03-19 19:25 | NUR ---
NURSE NOTES: Received report from PRITESH Lee. Pt in bed awake, alert, oriented x2.able to make needs known. On O2 via NC at 2L/min, no resp distress noted. On cardiac monitoring. IV 20G in left AC in place & patent. No c/o pain. Bed in low position & locked, side rail up x3. Bed alarm on. Call light with in reach. Remained pt to use call light for assistance.
[2020-03-19 20:00] VITALS: BP 155/70
[2020-03-19] MEDS: Cefepime HCl 2 GM in D5W 110 ML IV SCH (20:32)
[2020-03-20] VITALS: BP 134/57
[2020-03-20 04:00] VITALS: BP 154/58
[2020-03-20 04:20] LABS: BASOPHILS % (AUTO) 0.7 % (0.0-2.0); HEMOGLOBIN 11.1 G/DL (12.0-16.0); LYMPHOCYTES % (AUTO) 20.4 % (20.0-45.0); MEAN CORPUSCULAR VOLUME 86 FL (80-99); MONOCYTES % (AUTO) 6.3 % (1.0-10.0); NEUTROPHILS % (AUTO) 72.6 % (45.0-75.0); PLATELET COUNT 359 K/UL (150-450); RED BLOOD COUNT 3.96 M/UL (4.20-5.40); RED CELL DISTRIBUTION WIDTH 14.3 % (11.6-14.8); WHITE BLOOD COUNT 8.8 K/UL (4.8-10.8)
[2020-03-20 04:39] LABS: PHOSPHORUS 2.9 MG/DL (2.5-4.9)
[2020-03-20 04:40] LABS: ALBUMIN 3.6 G/DL (3.4-5.0); ALBUMIN/GLOBULIN RATIO 0.7 (1.0-2.7); BILIRUBIN,TOTAL 0.3 MG/DL (0.2-1.0); CALCIUM 9.4 MG/DL (8.5-10.1); CREATININE 1.1 MG/DL (0.55-1.30); POTASSIUM 3.5 MMOL/L (3.5-5.1)
[2020-03-20 05:21] LABS: ALBUMIN 3.7 G/DL (3.4-5.0); ANION GAP 9 mmol/L (5-15); BLOOD UREA NITROGEN 23 mg/dL (7-18); CALCIUM 9.3 MG/DL (8.5-10.1); CARBON DIOXIDE 28 MMOL/L (21-32); CHLORIDE 100 MMOL/L (98-107); FERRITIN 397 NG/ML (8-388); LACTATE DEHYDROGENASE 182 U/L (81-234); POTASSIUM 3.9 MMOL/L (3.5-5.1); SODIUM 137 MMOL/L (136-145)
[2020-03-20] MEDS: NovoLOG Insulin Flexpen SUBQ SCH ×4 (06:26→20:32)
--- NOTE | 2020-03-20 06:58 | NUR ---
Dr. Garcia called with new orders for Remdesivir pharmacy to dose.
--- NOTE | 2020-03-20 07:20 | NUR ---
NURSE HAND-OFF REPORT: Important Events on Shift:Dr mike guzman Patient Status: stable Diet: CCHO Pending Orders: [] Pending Results/Labs:[] Pending MD notification:[] Latest Vital Signs: Temperature 98.2 , Pulse 53 , B/P 154 /58 , Respiratory Rate 18 , O2 SAT 93 , Nasal Cannula, O2 Flow Rate 2.0 . Vital Sign Comment: [] EKG Rhythm: Sinus Bradycardia Rhythm change?: N MD Notified?: N -Dr Jose J BADILLO Response: No New Orders Received Latest Garcia Fall Score: 50 Fall Risk: High Risk Safety Measures: Call light Within Reach, Bed Alarm Zone 2, Side Rails Side Rails x2, Bed position Low and Locked. Fall Precautions: Yellow Socks Yellow Gown Door Sign Patient Fall Education Report given to PRITESH Gonzalez.
[2020-03-20 08:00] VITALS: BP 156/73
--- NOTE | 2020-03-20 08:37 | NUR ---
NURSE NOTES: pt in bed awake and talking. She just had breakfast. Pt on threat monitoring analyst no signs of cardiac or respiratory distress. Bed in lowest position and locked. Call light within reach. IV site may have to be changed, there is discomfort on the area. Will continue to monitor pt.
[2020-03-20 09:19] LABS: ALANINE AMINOTRANSFERASE 39 U/L (12-78); ALBUMIN 3.4 G/DL (3.4-5.0); ALBUMIN/GLOBULIN RATIO 0.7 (1.0-2.7); ALKALINE PHOSPHATASE 104 U/L (46-116); ANION GAP 10 mmol/L (5-15); ASPARTATE AMINO TRANSFERASE 31 U/L (15-37); BILIRUBIN,TOTAL 0.4 MG/DL (0.2-1.0); BLOOD UREA NITROGEN 20 mg/dL (7-18); CALCIUM 9.1 MG/DL (8.5-10.1); CARBON DIOXIDE 28 MMOL/L (21-32); CHLORIDE 102 MMOL/L (98-107); PHOSPHORUS 2.6 MG/DL (2.5-4.9); POTASSIUM 3.4 MMOL/L (3.5-5.1); SODIUM 140 MMOL/L (136-145)
[2020-03-20] MEDS: Heparin 5000 units/ml inj SUBQ SCH ×2 (09:40→20:31)
[2020-03-20] MEDS: Allopurinol 100mg Tab ORAL SCH (09:56)
[2020-03-20] MEDS: Azithromycin 250mg tab ORAL SCH (09:56)
[2020-03-20] MEDS: Carvedilol 12.5mg tab ORAL SCH ×2 (09:57→20:27)
--- NOTE | 2020-03-20 11:02 | Pulmonology Progress Note ---
Subjective ROS Limited/Unobtainable: Yes Constitutional: Reports: no symptoms HEENT: Repors: no symptoms Allergies: Coded Allergies: No Known Allergies (Unverified , 09/17/12) Objective Last 24 Hour Vital Signs Date Time Temp Pulse Resp B/P (MAP) Pulse Ox O2 Delivery O2 Flow Rate FiO2 03/20/20 09:57 70 156/73 03/20/20 09:56 70 156/73 03/20/20 08:23 98 Nasal Cannula 2.0 28 03/20/20 08:00 98.0 70 20 156/73 (100) 97 03/20/20 04:00 53 03/20/20 04:00 98.2 54 18 154/58 (90) 93 03/20/20 00:00 99.0 62 20 134/57 (82) 94 03/20/20 00:00 56 03/19/20 21:00 Nasal Cannula 2.0 03/19/20 20:35 88 158/70 03/19/20 20:00 77 03/19/20 20:00 98.7 76 20 155/70 (98) 98 03/19/20 19:28 97 Nasal Cannula 2.0 28 03/19/20 16:00 98.9 65 20 145/72 (96) 94 03/19/20 16:00 72 03/19/20 12:00 69 03/19/20 12:00 98.8 65 18 138/68 (91) 93 Intake and Output 03/19/20 03/20/20 19:00 07:00 Intake Total 360 ml 200 ml Balance 360 ml 200 ml Intake Oral 360 ml 200 ml # Voids 4 General Appearance: WD/WN HEENT: normocephalic, atraumatic Respiratory: chest wall non-tender, lungs clear Breasts: no masses Cardiovascular: normal peripheral pulses, normal rate Genitourinary: normal external genitalia Extremities: no cyanosis Skin: no lesions Neurologic: carbon setter II-XII grossly normal Microbiology Date/Time Source Procedure Growth Status 03/18/20 11:11 Rectum VRE Culture - Final NO VANCOMYCIN RESISTANT ENTEROCOCCUS ... Complete 03/18/20 11:11 Nasal Nares MRSA Culture - Final Staphylococcus Aureus - Mrsa Complete 03/18/20 10:51 Urine,Clean Catch Urine Culture - Preliminary Gram Negative [place] Resulted 03/18/20 10:51 Nasopharynx SARS-CoV-2 RdRp Gene Assay - Final Complete 03/18/20 10:05 Blood Blood Culture - Preliminary Staphylococcus Sp Coag Neg Resulted 03/18/20 09:50 Blood Blood Culture - Preliminary Staphylococcus Sp Coag Neg Resulted Laboratory Tests 03/19/20 11:52: POC Whole Blood Glucose 241H 03/19/20 16:46: POC Whole Blood Glucose [Pending] 03/19/20 20:22: POC Whole Blood Glucose 288H 03/20/20 03:20: White Blood Count 8.8, Red Blood Count 3.96L, Hemoglobin 11.1L, Hematocrit 34.0L , Mean Corpuscular Volume 86, Mean Corpuscular Hemoglobin 27.9, Mean Corpuscular Hemoglobin Concent 32.5, Red Cell Distribution Width 14.3, Platelet Count 359, Mean Platelet Volume 5.5L, Neutrophils (%) (Auto) 72.6, Lymphocytes (%) (Auto) 20.4, Monocytes (%) (Auto) 6.3, Eosinophils (%) (Auto) 0.0, Basophils (%) (Auto) 0.7, Erythrocyte Sedimentation Rate 100H, Sodium Level 137, Potassium Level 3.9, Chloride Level 100, Carbon Dioxide Level 28, Anion Gap 9, Blood Urea Nitrogen 23H, Creatinine 1.0, Estimat Glomerular Filtration Rate > 60, Glucose Level 244H, Calcium Level 9.3, Phosphorus Level 3.0, Magnesium Level 2.2, Ferritin 397H, Total Bilirubin 0.3, Aspartate Amino Transf (AST/SGOT) 27, Alanine Aminotransferase (ALT/SGPT) 35, Alkaline Phosphatase 108, Lactate Dehydrogenase 182, C-Reactive Protein, Quantitative 3.8H, Total Protein 8.7H, Albumin 3.7, Globulin 5.1, Albumin/Globulin Ratio 0.7L, Vancomycin Level Trough 9.7, HIV (1&2) Antibody Rapid Negative 03/20/20 05:38: POC Whole Blood Glucose 220H 03/20/20 08:20: Sodium Level 140, Potassium Level 3.4L, Chloride Level 102, Carbon Dioxide Level 28, Anion Gap 10, Blood Urea Nitrogen 20H, Creatinine 1.0, Estimat Glomerular Filtration Rate > 60, Glucose Level 211H, Calcium Level 9.1, Phosphorus Level 2.6, Total Bilirubin 0.4, Aspartate Amino Transf (AST/SGOT) 31, Alanine Aminotransferase (ALT/SGPT) 39, Alkaline Phosphatase 104, Lactate Dehydrogenase 149, Total Protein 8.2, Albumin 3.4, Globulin 4.8, Albumin/Globulin Ratio 0.7L, HIV (1&2) Antibody Rapid Negative 03/20/20 08:30: Fibrinogen 412H, D-Dimer 0.81H, Magnesium Level 2.0, Ferritin 404H, C-Reactive Protein, Quantitative 2.7H Current Medications Medications (Trade) Dose Ordered Sig/Nick Route PRN Reason Start Time Stop Time Status Last Admin Dose Admin Acetaminophen (Tylenol) 650 mg Q4H PRN ORAL FEVER 03/18/20 14:00 04/17/20 13:59 Albuterol/ Ipratropium (Albuterol/ Ipratropium) 3 ml Q4H PRN HHN Shortness of Breath 03/18/20 14:00 03/23/20 13:59 Allopurinol (Zyloprim) 200 mg DAILY ORAL 03/19/20 09:00 04/18/20 08:59 03/20/20 09:56 Amlodipine Besylate (Norvasc) 5 mg DAILY ORAL 03/19/20 09:00 04/18/20 08:59 03/20/20 09:56 Azithromycin (Zithromax) 500 mg DAILY ORAL 03/19/20 09:00 03/26/20 08:59 03/20/20 09:56 Carvedilol (Coreg) 12.5 mg EVERY 12 HOURS ORAL 03/18/20 21:00 04/17/20 20:59 03/20/20 09:57 Cefepime HCl 2 gm/ Dextrose 110 ml @ 220 mls/hr Q24H IV 03/18/20 21:00 03/25/20 20:59 03/19/20 20:32 Dexamethasone Sodium Phosphate (Decadron 4mg/ml vial) 6 mg DAILY IVP 03/19/20 09:00 03/28/20 08:59 03/20/20 09:52 Dextrose (Dextrose 50%) 25 ml Q30M PRN IV Hypoglycemia 03/18/20 14:00 06/16/20 13:59 Dextrose (Dextrose 50%) 50 ml Q30M PRN IV Hypoglycemia 03/18/20 14:00 06/16/20 13:59 Escitalopram Oxalate (Lexapro) 5 mg DAILY ORAL 03/19/20 09:00 04/18/20 08:59 03/20/20 09:56 Heparin Sodium (Porcine) (Heparin 5000 units/ml) 5,000 units EVERY 12 HOURS SUBQ 03/18/20 21:00 05/02/20 20:59 03/20/20 09:40 Insulin Aspart (NovoLOG) BEFORE MEALS AND HS SUBQ 03/18/20 16:30 06/16/20 16:29 03/20/20 06:26 Lorazepam (Ativan 2mg/ml 1ml) 2 mg Q2H PRN IV For Anxiety 03/18/20 14:00 03/25/20 13:59 Non-Formulary Medication (Non-Formulary Med) 1 ea DAILY ORAL 03/20/20 09:00 04/19/20 08:59 UNV Ondansetron HCl (Zofran) 4 mg Q6H PRN IVP Nausea & Vomiting 03/18/20 14:00 04/17/20 13:59 Polyethylene Glycol (Miralax) 17 gm DAILYPRN PRN ORAL Constipation 03/18/20 14:00 04/17/20 13:59 Promethazine HCl/ Codeine (Phenergan with Codeine) 5 ml Q4H PRN ORAL For Cough 03/18/20 14:00 04/17/20 13:59 Vancomycin HCl ([facility] pharmacy to dose) 1 ea DAILY PRN MISC . 03/18/20 14:15 04/17/20 14:14 Vancomycin HCl 750 mg/Sodium Chloride 250 ml @ 166.667 mls/hr Q8HR@0500,1300,2100 IVPB 03/20/20 13:00 03/25/20 12:59 Assessment/Plan Problems: (1) 2019 novel coronavirus disease (COVID-19) (2) UTI (urinary tract infection) (3) Diabetes mellitus (4) History of hypertension (5) Gout (6) HX: breast cancer (7) Major depression, recurrent Assessment/Plan afebrile check cxr, crp in am hi culture, BC are positive for GPC respiratory isolation check urine culture ID evaluation appreciated sliding scale diabetic diet monitor BP Calli Lux MD Mar 20, 2020 11:02
[2020-03-20 12:00] VITALS: BP 138/70
--- NOTE | 2020-03-20 13:00 | NUR ---
NURSE NOTE Julia daughter consented for pt to get Rendesevier to treat covid. Daughter looked up side effects of med and she was ok for pt to recieved meds.
[2020-03-20] MEDS ORDERED: Loading Dose:Remdesivir 200mg/NS 210ml IV SCH ×2 (14:00)
[2020-03-20] MEDS ORDERED: Remdesivir Fact Sheet MISC SCH (14:00)
[2020-03-20 16:00] VITALS: BP 142/60
--- NOTE | 2020-03-20 16:27 | Internal Med Progress Note ---
Subjective Date of Service: Mar 20, 2020 Physician Name BessBk Attending Physician Papa French MD Current Medications Medications (Trade) Dose Ordered Sig/Nick Route PRN Reason Start Time Stop Time Status Last Admin Dose Admin Acetaminophen (Tylenol) 650 mg Q4H PRN ORAL FEVER 03/18/20 14:00 04/17/20 13:59 Albuterol/ Ipratropium (Albuterol/ Ipratropium) 3 ml Q4H PRN HHN Shortness of Breath 03/18/20 14:00 03/23/20 13:59 Allopurinol (Zyloprim) 200 mg DAILY ORAL 03/19/20 09:00 04/18/20 08:59 03/20/20 09:56 Amlodipine Besylate (Norvasc) 5 mg DAILY ORAL 03/19/20 09:00 04/18/20 08:59 03/20/20 09:56 Azithromycin (Zithromax) 500 mg DAILY ORAL 03/19/20 09:00 03/26/20 08:59 03/20/20 09:56 Carvedilol (Coreg) 12.5 mg EVERY 12 HOURS ORAL 03/18/20 21:00 04/17/20 20:59 03/20/20 09:57 Cefepime HCl 2 gm/ Dextrose 110 ml @ 220 mls/hr Q24H IV 03/18/20 21:00 03/25/20 20:59 03/19/20 20:32 Dexamethasone Sodium Phosphate (Decadron 4mg/ml vial) 6 mg DAILY IVP 03/19/20 09:00 03/28/20 08:59 03/20/20 09:52 Dextrose (Dextrose 50%) 25 ml Q30M PRN IV Hypoglycemia 03/18/20 14:00 06/16/20 13:59 Dextrose (Dextrose 50%) 50 ml Q30M PRN IV Hypoglycemia 03/18/20 14:00 06/16/20 13:59 Escitalopram Oxalate (Lexapro) 5 mg DAILY ORAL 03/19/20 09:00 04/18/20 08:59 03/20/20 09:56 Heparin Sodium (Porcine) (Heparin 5000 units/ml) 5,000 units EVERY 12 HOURS SUBQ 03/18/20 21:00 05/02/20 20:59 03/20/20 09:40 Insulin Aspart (NovoLOG) BEFORE MEALS AND HS SUBQ 03/18/20 16:30 06/16/20 16:29 03/20/20 12:43 Lorazepam (Ativan 2mg/ml 1ml) 2 mg Q2H PRN IV For Anxiety 03/18/20 14:00 03/25/20 13:59 Ondansetron HCl (Zofran) 4 mg Q6H PRN IVP Nausea & Vomiting 03/18/20 14:00 04/17/20 13:59 Polyethylene Glycol (Miralax) 17 gm DAILYPRN PRN ORAL Constipation 03/18/20 14:00 04/17/20 13:59 Promethazine HCl/ Codeine (Phenergan with Codeine) 5 ml Q4H PRN ORAL For Cough 03/18/20 14:00 04/17/20 13:59 Remdesivir 100 mg/ Sodium Chloride 250 ml @ 250 mls/hr Q24H IV 03/21/20 14:00 03/24/20 14:59 Vancomycin HCl (Vanco pharmacy to dose) 1 ea DAILY PRN MISC . 03/18/20 14:15 04/17/20 14:14 Vancomycin HCl 750 mg/Sodium Chloride 250 ml @ 166.667 mls/hr Q8HR@0500,1300,2100 IVPB 03/20/20 13:00 03/25/20 12:59 03/20/20 12:08 Allergies: Coded Allergies: No Known Allergies (Unverified , 09/17/12) ROS Limited/Unobtainable: Yes Subjective 74 YO F admitted with fever. Now COVID 19 positive and pneumonia. Cover for Int [facility]-Dr French Objective Last Vital Signs Date Time Temp Pulse Resp B/P (MAP) Pulse Ox O2 Delivery O2 Flow Rate FiO2 03/20/20 12:00 61 03/20/20 09:57 156/73 03/20/20 09:00 Nasal Cannula 2.0 03/20/20 08:23 98 28 03/20/20 08:00 98.0 20 Laboratory Tests Test 03/19/20 16:46 03/19/20 20:22 03/20/20 03:20 03/20/20 05:38 POC Whole Blood Glucose Pending 288 MG/DL (74-106) H 220 MG/DL (74-106) H White Blood Count 8.8 K/UL (4.8-10.8) Red Blood Count 3.96 M/UL (4.20-5.40) L Hemoglobin 11.1 G/DL (12.0-16.0) L Hematocrit 34.0 % (37.0-47.0) L Mean Corpuscular Volume 86 FL (80-99) Mean Corpuscular Hemoglobin 27.9 PG (27.0-31.0) Mean Corpuscular Hemoglobin Concent 32.5 G/DL (32.0-36.0) Red Cell Distribution Width 14.3 % (11.6-14.8) Platelet Count 359 K/UL (150-450) Mean Platelet Volume 5.5 FL (6.5-10.1) L Neutrophils (%) (Auto) 72.6 % (45.0-75.0) Lymphocytes (%) (Auto) 20.4 % (20.0-45.0) Monocytes (%) (Auto) 6.3 % (1.0-10.0) Eosinophils (%) (Auto) 0.0 % (0.0-3.0) Basophils (%) (Auto) 0.7 % (0.0-2.0) Erythrocyte Sedimentation Rate 100 MM/HR (0-30) H Sodium Level 137 MMOL/L (136-145) Potassium Level 3.9 MMOL/L (3.5-5.1) Chloride Level 100 MMOL/L (98-107) Carbon Dioxide Level 28 MMOL/L (21-32) Anion Gap 9 mmol/L (5-15) Blood Urea Nitrogen 23 mg/dL (7-18) H Creatinine 1.0 MG/DL (0.55-1.30) Estimat Glomerular Filtration Rate > 60 mL/min (>60) Glucose Level 244 MG/DL (74-106) H Calcium Level 9.3 MG/DL (8.5-10.1) Phosphorus Level 3.0 MG/DL (2.5-4.9) Magnesium Level 2.2 MG/DL (1.8-2.4) Ferritin 397 NG/ML (8-388) H Total Bilirubin 0.3 MG/DL (0.2-1.0) Aspartate Amino Transf (AST/SGOT) 27 U/L (15-37) Alanine Aminotransferase (ALT/SGPT) 35 U/L (12-78) Alkaline Phosphatase 108 U/L (46-116) Lactate Dehydrogenase 182 U/L (81-234) C-Reactive Protein, Quantitative 3.8 mg/dL (0.00-0.90) H Total Protein 8.7 G/DL (6.4-8.2) H Albumin 3.7 G/DL (3.4-5.0) Globulin 5.1 g/dL Albumin/Globulin Ratio 0.7 (1.0-2.7) L Vancomycin Level Trough 9.7 ug/mL (5.0-12.0) HIV (1&2) Antibody Rapid Negative (NEGATIVE) Test 03/20/20 08:20 03/20/20 08:30 03/20/20 12:11 Sodium Level 140 MMOL/L (136-145) Potassium Level 3.4 MMOL/L (3.5-5.1) L Chloride Level 102 MMOL/L (98-107) Carbon Dioxide Level 28 MMOL/L (21-32) Anion Gap 10 mmol/L (5-15) Blood Urea Nitrogen 20 mg/dL (7-18) H Creatinine 1.0 MG/DL (0.55-1.30) Estimat Glomerular Filtration Rate > 60 mL/min (>60) Glucose Level 211 MG/DL (74-106) H Calcium Level 9.1 MG/DL (8.5-10.1) Phosphorus Level 2.6 MG/DL (2.5-4.9) Total Bilirubin 0.4 MG/DL (0.2-1.0) Aspartate Amino Transf (AST/SGOT) 31 U/L (15-37) Alanine Aminotransferase (ALT/SGPT) 39 U/L (12-78) Alkaline Phosphatase 104 U/L (46-116) Lactate Dehydrogenase 149 U/L (81-234) Total Protein 8.2 G/DL (6.4-8.2) Albumin 3.4 G/DL (3.4-5.0) Globulin 4.8 g/dL Albumin/Globulin Ratio 0.7 (1.0-2.7) L HIV (1&2) Antibody Rapid Negative (NEGATIVE) Fibrinogen 412 mg/dL (200-400) H D-Dimer 0.81 mg/L FEU (0.00-0.49) H Magnesium Level 2.0 MG/DL (1.8-2.4) Ferritin 404 NG/ML (8-388) H C-Reactive Protein, Quantitative 2.7 mg/dL (0.00-0.90) H POC Whole Blood Glucose 183 MG/DL (74-106) H Microbiology Date/Time Source Procedure Growth Status 03/18/20 11:11 Rectum VRE Culture - Final NO VANCOMYCIN RESISTANT ENTEROCOCCUS ... Complete 03/18/20 11:11 Nasal Nares MRSA Culture - Final Staphylococcus Aureus - Mrsa Complete 03/18/20 10:51 Urine,Clean Catch Urine Culture - Preliminary Gram Negative Constantine Resulted 03/18/20 10:51 Nasopharynx SARS-CoV-2 RdRp Gene Assay - Final Complete 03/18/20 10:05 Blood Blood Culture - Preliminary Staphylococcus Sp Coag Neg Resulted 03/18/20 09:50 Blood Blood Culture - Preliminary Staphylococcus Sp Coag Neg Resulted Intake and Output 03/19/20 03/20/20 19:00 07:00 Intake Total 360 ml 200 ml Balance 360 ml 200 ml Intake Oral 360 ml 200 ml # Voids 4 Objective PHYSICAL EXAMINATION: GENERAL: The patient awake, responsive, no acute distress. HEENT: Head and neck examination, pupils are equal and reactive to light. Extraocular muscles intact. Neck was supple. No JVD. LUNGS: Good air entry. Decreased air in bases. HEART: S1, S2. Regular rhythm. No gallops. ABDOMEN: Soft, nontender, nondistended. Mildly obese. EXTREMITIES: No cyanosis, clubbing, or edema. NEUROLOGIC: Cranial nerves II through XII grossly intact. The patient moving all extremities. RECTAL: Refused and deferred. GENITOURINARY: Refused and deferred. PSYCHIATRIC: Mood and affect is intact. Assessment/Plan Assessment/Plan ASSESSMENT: 1. COVID-19 pneumonia. 2. Acute hypoxemic respiratory failure. 3. Low-grade fever, possible due to the pneumonia. 4. Possible urinary tract infection. 5. Congestive heart failure, chronic. 6. Obesity. 7. Hypertension. 8. Diabetes type 2. 9. History of CVA. PLAN: 1. Admit the patient to monitored unit. 2. antibiotic, vancomycin, cefepime, and azithromycin. 3. Continue Decadron IV. 4. Continue Remdesivir 5. DVT prophylaxis=heparin subcutaneous. 6. Code status is Full Code. 7. Dr. Calli Lux=Pulmonary Critical Care 8. Dr. Hernandez = Infectious Disease Bk Kellogg MD Mar 20, 2020 16:27
--- NOTE | 2020-03-20 18:30 | NUR ---
NURSE NOTES: Reported latest labs to and Bess, they are aware. Doctor Bess ordered 40meq of potassium once
--- NOTE | 2020-03-20 19:15 | NUR ---
NURSE NOTES: Received report from PRITESH Gonzalez. Pt in bed awake, alert, oriented x2.able to make needs known. On O2 via NC at 2L/min, no resp distress noted. On cardiac monitoring. IV on left hand in place & patent. No c/o pain. Bed in low position & locked, side rail up x3. Bed alarm on. Call light with in reach. Remained pt to use call light for assistance.
--- NOTE | 2020-03-20 19:18 | NUR ---
NURSE HAND-OFF REPORT: Important Events on Shift: 1st dose of [place]ve[place] given, no side effects noted. once dose of potassium will be given Patient Status: full code Diet: CCHO Pending Orders: xray, labs` Pending Results/Labs: Pending MD notification: Latest Vital Signs: Temperature 97.7 , Pulse 72 , B/P 142 /60 , Respiratory Rate 20 , O2 SAT 97 , Nasal Cannula, O2 Flow Rate 2.0 . Vital Sign Comment: EKG Rhythm: Sinus Rhythm Rhythm change?: N Notified?: N -Dr Jose J BADILLO Response: No New Orders Received Latest Garcia Fall Score: 50 Fall Risk: High Risk Safety Measures: Call light Within Reach, Bed Alarm Zone 2, Side Rails Side Rails x2, Bed position Low and Locked. Fall Precautions: Y Yellow Socks y Yellow Gown y Door Sign y Patient Fall Education Y Report given to [place]/JOSE J.
[2020-03-20 20:00] VITALS: BP 139/61
[2020-03-20] MEDS: Cefepime HCl 2 GM in D5W 110 ML IV SCH (21:55)
[2020-03-21] VITALS: BP 145/67
[2020-03-21 04:00] VITALS: BP 170/86
[2020-03-21 05:05] LABS: HEMATOCRIT 36.8 % (37.0-47.0); HEMOGLOBIN 11.8 G/DL (12.0-16.0); LYMPHOCYTES % (AUTO) 17.7 % (20.0-45.0); MEAN CORPUSCULAR VOLUME 86 FL (80-99); MONOCYTES % (AUTO) 9.3 % (1.0-10.0); PLATELET COUNT 395 K/UL (150-450); RED BLOOD COUNT 4.28 M/UL (4.20-5.40); RED CELL DISTRIBUTION WIDTH 14.3 % (11.6-14.8); WHITE BLOOD COUNT 9.4 K/UL (4.8-10.8)
[2020-03-21 05:21] LABS: ALANINE AMINOTRANSFERASE 78 U/L (12-78); ALBUMIN 3.6 G/DL (3.4-5.0); ALBUMIN/GLOBULIN RATIO 0.7 (1.0-2.7); ALKALINE PHOSPHATASE 119 U/L (46-116); ANION GAP 11 mmol/L (5-15); ASPARTATE AMINO TRANSFERASE 47 U/L (15-37); BILIRUBIN,TOTAL 0.3 MG/DL (0.2-1.0); BLOOD UREA NITROGEN 19 mg/dL (7-18); CALCIUM 9.4 MG/DL (8.5-10.1); CARBON DIOXIDE 27 MMOL/L (21-32); CHLORIDE 101 MMOL/L (98-107); POTASSIUM 3.9 MMOL/L (3.5-5.1); SODIUM 139 MMOL/L (136-145)
--- NOTE | 2020-03-21 05:30 | NUR ---
NURSE NOTES: Called regarding b/p of 170/ awating call back.
--- NOTE | 2020-03-21 05:40 | NUR ---
NURSE NOTES: Recheck b/p 155/57, p62, RR 20, O2 SAT 97%. made comfortable.
[2020-03-21 05:42] LABS: PHOSPHORUS 2.9 MG/DL (2.5-4.9)
[2020-03-21] MEDS: NovoLOG Insulin Flexpen SUBQ SCH ×4 (06:27→21:49)
--- NOTE | 2020-03-21 07:20 | NUR ---
NURSE HAND-OFF REPORT: Important Events on Shift:NOTED AN EPISODE OF ELEVATED BP 170/[address] WORTHY AWAITING CALL BACK, RECHECKED BP 155/57 AND EPISODE OF BRADYCARDIA AT 48 Patient Status: STABLE Diet: CCHO MED Pending Orders: YES Pending Results/Labs:YES Pending MD notification:[] Latest Vital Signs: Temperature 99.0 , Pulse 67 , B/P 170 /86 , Respiratory Rate 18 , O2 SAT 99 , Nasal Cannula, O2 Flow Rate 2.0 . Vital Sign Comment: [] EKG Rhythm: Sinus Bradycardia Rhythm change?: N Notified?: N -Dr Jose J BADILLO Response: No New Orders Received Latest Garcia Fall Score: 50 Fall Risk: High Risk Safety Measures: Call light Within Reach, Bed Alarm Zone 2, Side Rails Side Rails x2, Bed position Low and Locked. Fall Precautions: Yellow Socks Yellow Gown Door Sign Patient Fall Education Report given to PRITESH Arango.
--- NOTE | 2020-03-21 07:31 | NUR ---
NURSE NOTES: Received report from PRITESH Leos. Pt in bed sleeping. On O2 via NC at 2L/min, no resp distress noted. On cardiac monitoring. IV on left hand and left AC. No c/o pain. Bed in low position & locked, side rail up x2. Bed alarm on. Call light with in reach. Remained pt to use call light for assistance. Whiteboard updated.
--- NOTE | 2020-03-21 07:46 | NUR ---
NURSE NOTES: Dr. Samuel made aware of ESBL in urine, awaiting call back indorsed to on coming shift.
[2020-03-21 08:00] VITALS: BP 153/56
[2020-03-21] MEDS: Carvedilol 12.5mg tab ORAL SCH ×2 (08:08→21:49)
[2020-03-21] MEDS: Azithromycin 250mg tab ORAL SCH (08:09)
[2020-03-21] MEDS: Allopurinol 100mg Tab ORAL SCH (08:10)
[2020-03-21] MEDS: Heparin 5000 units/ml inj SUBQ SCH ×2 (08:13→21:00)
--- NOTE | 2020-03-21 11:03 | NUR ---
RADIOLOGY DEPT., CHEST X-RAY DONE.-P.DYE
--- NOTE | 2020-03-21 11:21 | Pulmonology Progress Note ---
Subjective ROS Limited/Unobtainable: No Constitutional: Reports: no symptoms HEENT: Repors: no symptoms Respiratory: Reports: no symptoms Allergies: Coded Allergies: No Known Allergies (Unverified , 09/17/12) Objective Last 24 Hour Vital Signs Date Time Temp Pulse Resp B/P (MAP) Pulse Ox O2 Delivery O2 Flow Rate FiO2 03/21/20 09:00 Nasal Cannula 2.0 03/21/20 08:24 62 153/56 03/21/20 08:08 50 153/56 03/21/20 08:00 47 03/21/20 08:00 98.2 50 18 153/56 (88) 98 03/21/20 04:00 48 03/21/20 04:00 99.0 67 18 170/86 (114) 99 03/21/20 00:00 99.2 63 18 145/67 (93) 98 03/21/20 00:00 62 03/20/20 21:00 Nasal Cannula 2.0 03/20/20 20:27 84 142/78 03/20/20 20:00 60 03/20/20 20:00 99.8 61 18 139/61 (87) 98 03/20/20 16:00 72 03/20/20 16:00 97.7 71 20 142/60 (87) 97 03/20/20 12:00 61 03/20/20 12:00 97.3 58 22 138/70 (92) 96 Intake and Output 03/20/20 03/21/20 19:00 07:00 Intake Total 360 ml Balance 360 ml Intake Oral 360 ml # Voids 4 2 # Bowel Movements 1 General Appearance: WD/WN HEENT: normocephalic, atraumatic Respiratory: chest wall non-tender, lungs clear Breasts: no masses Cardiovascular: normal peripheral pulses, normal rate Genitourinary: normal external genitalia Extremities: no cyanosis Skin: no lesions Neurologic: transplanter II-XII grossly normal Laboratory Tests 03/20/20 12:11: POC Whole Blood Glucose 183H 03/20/20 17:44: POC Whole Blood Glucose [Pending] 03/20/20 20:29: POC Whole Blood Glucose 297H 03/21/20 04:53: White Blood Count 9.4, Red Blood Count 4.28, Hemoglobin 11.8L, Hematocrit 36.8L, Mean Corpuscular Volume 86, Mean Corpuscular Hemoglobin 27.5, Mean Corpuscular Hemoglobin Concent 31.9L, Red Cell Distribution Width 14.3, Platelet Count 395, Mean Platelet Volume 5.9L, Neutrophils (%) (Auto) 72.0, Lymphocytes (%) (Auto) 17.7L, Monocytes (%) (Auto) 9.3, Eosinophils (%) (Auto) 0.0, Basophils (%) (Auto) 1.0, Erythrocyte Sedimentation Rate 84H, Sodium Level 139, Potassium Level 3.9, Chloride Level 101, Carbon Dioxide Level 27, Anion Gap 11, Blood Urea Nitrogen 19H, Creatinine 1.0, Estimat Glomerular Filtration Rate > 60, Glucose Level 201H, Calcium Level 9.4, Phosphorus Level 2.9, Magnesium Level 2.1, Total Bilirubin 0.3, Aspartate Amino Transf (AST/SGOT) 47H, Alanine Aminotransferase (ALT/SGPT) 78, Alkaline Phosphatase 119H, C-Reactive Protein, Quantitative 2.4H, Total Protein 8.7H, Albumin 3.6, Globulin 5.1, Albumin/Globulin Ratio 0.7L, Vancomycin Level Trough 18.2H 03/21/20 06:25: POC Whole Blood Glucose 203H Current Medications Medications (Trade) Dose Ordered Sig/Nick Route PRN Reason Start Time Stop Time Status Last Admin Dose Admin Acetaminophen (Tylenol) 650 mg Q4H PRN ORAL FEVER 03/18/20 14:00 04/17/20 13:59 Albuterol/ Ipratropium (Albuterol/ Ipratropium) 3 ml Q4H PRN HHN Shortness of Breath 03/18/20 14:00 03/23/20 13:59 Allopurinol (Zyloprim) 200 mg DAILY ORAL 03/19/20 09:00 04/18/20 08:59 03/21/20 08:10 Amlodipine Besylate (Norvasc) 5 mg DAILY ORAL 03/19/20 09:00 04/18/20 08:59 03/21/20 08:24 Azithromycin (Zithromax) 500 mg DAILY ORAL 03/19/20 09:00 03/26/20 08:59 03/21/20 08:09 Carvedilol (Coreg) 12.5 mg EVERY 12 HOURS ORAL 03/18/20 21:00 04/17/20 20:59 03/20/20 20:27 Cefepime HCl 2 gm/ Dextrose 110 ml @ 220 mls/hr Q24H IV 03/18/20 21:00 03/25/20 20:59 03/20/20 21:55 Dexamethasone Sodium Phosphate (Decadron 4mg/ml vial) 6 mg DAILY IVP 03/19/20 09:00 03/28/20 08:59 03/21/20 08:09 Dextrose (Dextrose 50%) 25 ml Q30M PRN IV Hypoglycemia 03/18/20 14:00 06/16/20 13:59 Dextrose (Dextrose 50%) 50 ml Q30M PRN IV Hypoglycemia 03/18/20 14:00 06/16/20 13:59 Escitalopram Oxalate (Lexapro) 5 mg DAILY ORAL 03/19/20 09:00 04/18/20 08:59 03/21/20 08:08 Heparin Sodium (Porcine) (Heparin 5000 units/ml) 5,000 units EVERY 12 HOURS SUBQ 03/18/20 21:00 05/02/20 20:59 03/21/20 08:13 Insulin Aspart (NovoLOG) BEFORE MEALS AND HS SUBQ 03/18/20 16:30 06/16/20 16:29 03/21/20 06:27 Lorazepam (Ativan 2mg/ml 1ml) 2 mg Q2H PRN IV For Anxiety 03/18/20 14:00 03/25/20 13:59 Ondansetron HCl (Zofran) 4 mg Q6H PRN IVP Nausea & Vomiting 03/18/20 14:00 04/17/20 13:59 Polyethylene Glycol (Miralax) 17 gm DAILYPRN PRN ORAL Constipation 03/18/20 14:00 04/17/20 13:59 Promethazine HCl/ Codeine (Phenergan with Codeine) 5 ml Q4H PRN ORAL For Cough 03/18/20 14:00 04/17/20 13:59 Remdesivir 100 mg/ Sodium Chloride 250 ml @ 250 mls/hr Q24H IV 03/21/20 14:00 03/24/20 14:59 Vancomycin HCl (Vanco pharmacy to dose) 1 ea DAILY PRN MISC . 03/18/20 14:15 04/17/20 14:14 Vancomycin HCl 750 mg/Sodium Chloride 250 ml @ 166.667 mls/hr Q8HR@0500,1300,2100 IVPB 03/20/20 13:00 03/25/20 12:59 03/21/20 06:03 Assessment/Plan Problems: (1) 2019 novel coronavirus disease (COVID-19) (2) UTI (urinary tract infection) (3) Diabetes mellitus (4) History of hypertension (5) Gout (6) HX: breast cancer (7) Major depression, recurrent Assessment/Plan afebrile check cxr,still pending hi culture, BC are positive for GPC respiratory isolation check urine culture ID evaluation appreciated sliding scale diabetic diet monitor BP Calli Lux MD Mar 21, 2020 11:21
[2020-03-21 12:00] VITALS: BP 159/64
--- NOTE | 2020-03-21 13:28 | NUR ---
NURSE NOTES: Reported to Dr. Lux that 5mg amlodipine in AM jeffries snot reduce BP and coreg is not appropriate because pt jay jay. Per Dr. Lux make amlodipine BID. Add Hydralazine IV PRN Q4 for Systolic> 160. However hydralazine on back order therefore can't order. Will assess efficacy of second dose of amlodipine and ask for alternative to hydralazine if it jeffries snot help.
--- NOTE | 2020-03-21 13:29 | Internal Med Progress Note ---
Subjective Date of Service: Mar 21, 2020 Physician Name KelloggBk Attending Physician Papa French MD Current Medications Medications (Trade) Dose Ordered Sig/Nick Route PRN Reason Start Time Stop Time Status Last Admin Dose Admin Acetaminophen (Tylenol) 650 mg Q4H PRN ORAL FEVER 03/18/20 14:00 04/17/20 13:59 Albuterol/ Ipratropium (Albuterol/ Ipratropium) 3 ml Q4H PRN HHN Shortness of Breath 03/18/20 14:00 03/23/20 13:59 Allopurinol (Zyloprim) 200 mg DAILY ORAL 03/19/20 09:00 04/18/20 08:59 03/21/20 08:10 Amlodipine Besylate (Norvasc) 5 mg DAILY ORAL 03/19/20 09:00 04/18/20 08:59 03/21/20 08:24 Azithromycin (Zithromax) 500 mg DAILY ORAL 03/19/20 09:00 03/26/20 08:59 03/21/20 08:09 Carvedilol (Coreg) 12.5 mg EVERY 12 HOURS ORAL 03/18/20 21:00 04/17/20 20:59 03/20/20 20:27 Cefepime HCl 2 gm/ Dextrose 110 ml @ 220 mls/hr Q24H IV 03/18/20 21:00 03/25/20 20:59 03/20/20 21:55 Dexamethasone Sodium Phosphate (Decadron 4mg/ml vial) 6 mg DAILY IVP 03/19/20 09:00 03/28/20 08:59 03/21/20 08:09 Dextrose (Dextrose 50%) 25 ml Q30M PRN IV Hypoglycemia 03/18/20 14:00 06/16/20 13:59 Dextrose (Dextrose 50%) 50 ml Q30M PRN IV Hypoglycemia 03/18/20 14:00 06/16/20 13:59 Escitalopram Oxalate (Lexapro) 5 mg DAILY ORAL 03/19/20 09:00 04/18/20 08:59 03/21/20 08:08 Heparin Sodium (Porcine) (Heparin 5000 units/ml) 5,000 units EVERY 12 HOURS SUBQ 03/18/20 21:00 05/02/20 20:59 03/21/20 08:13 Insulin Aspart (NovoLOG) BEFORE MEALS AND HS SUBQ 03/18/20 16:30 06/16/20 16:29 03/21/20 11:43 Lorazepam (Ativan 2mg/ml 1ml) 2 mg Q2H PRN IV For Anxiety 03/18/20 14:00 03/25/20 13:59 Ondansetron HCl (Zofran) 4 mg Q6H PRN IVP Nausea & Vomiting 03/18/20 14:00 04/17/20 13:59 Polyethylene Glycol (Miralax) 17 gm DAILYPRN PRN ORAL Constipation 03/18/20 14:00 04/17/20 13:59 Promethazine HCl/ Codeine (Phenergan with Codeine) 5 ml Q4H PRN ORAL For Cough 03/18/20 14:00 04/17/20 13:59 Remdesivir 100 mg/ Sodium Chloride 250 ml @ 250 mls/hr Q24H IV 03/21/20 14:00 03/24/20 14:59 Vancomycin HCl (Vanco pharmacy to dose) 1 ea DAILY PRN MISC . 03/18/20 14:15 04/17/20 14:14 Vancomycin HCl 750 mg/Sodium Chloride 250 ml @ 166.667 mls/hr Q8HR@0500,1300,2100 IVPB 03/20/20 13:00 03/25/20 12:59 03/21/20 12:29 Allergies: Coded Allergies: No Known Allergies (Unverified , 09/17/12) ROS Limited/Unobtainable: Yes Subjective 74 YO F admitted with fever. Now COVID 19 positive and pneumonia. Cover for Int [facility]-Dr French Objective Last Vital Signs Date Time Temp Pulse Resp B/P (MAP) Pulse Ox O2 Delivery O2 Flow Rate FiO2 03/21/20 12:00 49 03/21/20 12:00 99.5 18 159/64 (95) 98 03/21/20 09:00 Nasal Cannula 2.0 03/20/20 08:23 28 Laboratory Tests Test 03/20/20 17:44 03/20/20 20:29 03/21/20 04:53 03/21/20 06:25 POC Whole Blood Glucose Pending 297 MG/DL (74-106) H 203 MG/DL (74-106) H White Blood Count 9.4 K/UL (4.8-10.8) Red Blood Count 4.28 M/UL (4.20-5.40) Hemoglobin 11.8 G/DL (12.0-16.0) L Hematocrit 36.8 % (37.0-47.0) L Mean Corpuscular Volume 86 FL (80-99) Mean Corpuscular Hemoglobin 27.5 PG (27.0-31.0) Mean Corpuscular Hemoglobin Concent 31.9 G/DL (32.0-36.0) L Red Cell Distribution Width 14.3 % (11.6-14.8) Platelet Count 395 K/UL (150-450) Mean Platelet Volume 5.9 FL (6.5-10.1) L Neutrophils (%) (Auto) 72.0 % (45.0-75.0) Lymphocytes (%) (Auto) 17.7 % (20.0-45.0) L Monocytes (%) (Auto) 9.3 % (1.0-10.0) Eosinophils (%) (Auto) 0.0 % (0.0-3.0) Basophils (%) (Auto) 1.0 % (0.0-2.0) Erythrocyte Sedimentation Rate 84 MM/HR (0-30) H Sodium Level 139 MMOL/L (136-145) Potassium Level 3.9 MMOL/L (3.5-5.1) Chloride Level 101 MMOL/L (98-107) Carbon Dioxide Level 27 MMOL/L (21-32) Anion Gap 11 mmol/L (5-15) Blood Urea Nitrogen 19 mg/dL (7-18) H Creatinine 1.0 MG/DL (0.55-1.30) Estimat Glomerular Filtration Rate > 60 mL/min (>60) Glucose Level 201 MG/DL (74-106) H Calcium Level 9.4 MG/DL (8.5-10.1) Phosphorus Level 2.9 MG/DL (2.5-4.9) Magnesium Level 2.1 MG/DL (1.8-2.4) Total Bilirubin 0.3 MG/DL (0.2-1.0) Aspartate Amino Transf (AST/SGOT) 47 U/L (15-37) H Alanine Aminotransferase (ALT/SGPT) 78 U/L (12-78) Alkaline Phosphatase 119 U/L (46-116) H C-Reactive Protein, Quantitative 2.4 mg/dL (0.00-0.90) H Total Protein 8.7 G/DL (6.4-8.2) H Albumin 3.6 G/DL (3.4-5.0) Globulin 5.1 g/dL Albumin/Globulin Ratio 0.7 (1.0-2.7) L Vancomycin Level Trough 18.2 ug/mL (5.0-12.0) H Intake and Output 03/20/20 03/21/20 19:00 07:00 Intake Total 360 ml Balance 360 ml Intake Oral 360 ml # Voids 4 2 # Bowel Movements 1 Objective PHYSICAL EXAMINATION: GENERAL: The patient awake, responsive, no acute distress. HEENT: Head and neck examination, pupils are equal and reactive to light. Extraocular muscles intact. Neck was supple. No JVD. LUNGS: Good air entry. Decreased air in bases. HEART: S1, S2. Regular rhythm. No gallops. ABDOMEN: Soft, nontender, nondistended. Mildly obese. EXTREMITIES: No cyanosis, clubbing, or edema. NEUROLOGIC: Cranial nerves II through XII grossly intact. The patient moving all extremities. RECTAL: Refused and deferred. GENITOURINARY: Refused and deferred. PSYCHIATRIC: Mood and affect is intact. Assessment/Plan Assessment/Plan ASSESSMENT: 1. COVID-19 pneumonia. 2. Acute hypoxemic respiratory failure. 3. Low-grade fever, possible due to the pneumonia. 4. Possible urinary tract infection. 5. Congestive heart failure, chronic. 6. Obesity. 7. Hypertension. 8. Diabetes type 2. 9. History of CVA. PLAN: 1. Admit the patient to monitored unit. 2. antibiotic, vancomycin, cefepime, and azithromycin. 3. Continue Decadron IV. 4. Continue Remdesivir 5. DVT prophylaxis=heparin subcutaneous. 6. Code status is Full Code. 7. Dr. Calli Lux=Pulmonary Critical Care 8. Dr. Hernandez = Infectious Disease Bk Kellogg MD Mar 21, 2020 13:29
--- NOTE | 2020-03-21 14:35 | NUR ---
CASE MANAGEMENT:REVIEW BIBA FROM [facility] CC: FEVER AND ABNORMAL CXR SI: COVID PNA 100.3 81 24 150/101 97% ON 2L/NC BUN+26 IS:IV AZITHROMYCIN X1 IV DECADRON IV ROCPHIN LOVENOX SQ : TO TELEMETRY
--- NOTE | 2020-03-21 14:41 | NUR ---
CASE MANAGEMENT:REVIEW 03/21/20 SI: COVID PNEUMONIA 99.5 57 18 159/64 98% ON RA H/H-11.8/36.8 ESR+84 GLUCOSE+201 IS: IV REMDESIVIR Q24 (DAY #2/5) IV VANCOMYCIN Q8HRS IV DECADRON QD AZITHROMYCIN QD IV CEFEPIME Q24 HEPARIN SQ Q12 : TELEMETRY STATUS DCP; FROM [facility]
[2020-03-21 16:00] VITALS: BP 165/66
[2020-03-21] MEDS: Maintenance Dose:Remdesivir 100mg/NS 230ml x 4 Doses IV SCH ×2 (16:27)
--- NOTE | 2020-03-21 17:04 | Diagnostic Imaging Report ---
Indication: Dyspnea Technique: One view of the chest Comparison: 03/18/2020 Findings: The heart is enlarged. There is perhaps slightly increased interstitial congestion. No focal airspace consolidation. Impression: Suspect slightly increased interstitial congestion. Cardiomegaly
--- NOTE | 2020-03-21 17:42 | NUR ---
NURSE NOTES:WOUND CARE NOTES:Pt presented on admission with non-Blanchable erythema Sacrum.Pt also noted to have skin tone that is significantly darker than is normal skin tone R and L gluteal cheeks. Both heels are easily blanchable and dry.Thick callus noted to Plantar L foot. Tx.Plan: Apply Moisture Barrier Paste to Buttocks with each incontinence care. Cover Sacrum with Optifoam drsg. Change every 3 days and prn. Apply Cavilon Skin Barrier to both heels. Cover each heel with Optifoam drsg. Change every 7 days and prn. Reposition at least every 2hours or as tolerated. Off-load heels with pillow.
[2020-03-21] MEDS: Meropenem 1gm/NS 55ml IVPB SCH ×2 (17:51)
--- NOTE | 2020-03-21 19:49 | NUR ---
HAND-OFF: Report given to rodrigue velasquez
--- NOTE | 2020-03-21 19:55 | NUR ---
NURSE NOTES: Pt received from PRITESH Arango. Pt is sleeping comfortably in bed. Pt is AO x2 to person and location; pt is lethargic and responds with minimal effort. Pt has NC3 LPM sating 99% and breathing unlabored. Pt is on cardiac monitoring SB 58 and asymptomatic. Pt has purwick in place and draining well to suction. Pt has LAC 22G TKO NS 5ml/hr. Bed locked in lowest position and call light within reach. Will continue to monitor.
[2020-03-21 20:00] VITALS: BP 161/63
--- NOTE | 2020-03-21 20:35 | Infectious Diseases Prog Note ---
Assessment/Plan Assessment: COVID19 Pneumonia(dx'ed 03/15) Acute hypoxic resp failure- sp NC, now on 2 Lit O2 -03/21 CXR: Suspect slightly increased interstitial congestion. Cardiomegaly -03/20 Bcx 1/2 GPC clusters -03/18 rapid COVID PCR + CXR: Possible early infiltrate right midlung. Low grade fever, SP No leukocytosis Probable UTI -u/a wbc 60-80, nit +, leuk +3; ucx >100k ESBL E.coli, 20-30k GNR Gram positive bacteremia -03/18 Bcx 1/ S. warneri, 07/04 S. hominis CHF obesity HTN Dm2 CVA Plan: -Continue empiric IV Vancomcyin #5 - Azithromycin # 5/ -Meropenem #1 for ESBL UTI -Decadron #10/08 -Remdesivir #2/5 -03/20 SP Cefepime #4 -03/18 SP Ceftriaxone x1 -f/u cx -Monitor CBC/CMP, temperatures -COVID19 isolation Pt agrees with RDV That the patient/ has been: a) Given the Fact Sheet for Patients and Parents/Caregivers( Asled RN to provide it the facts sheet) (helps patient understand risks and benefits)b. Informed of alternatives to receiving remdesivir, and c. Informed that remdesivir is an unapproved drug that is authorized for use under EUA Subjective Allergies: Coded Allergies: No Known Allergies (Unverified , 09/17/12) *late entry* afebrile >72hrs at 2l NC Objective Last 24 Hour Vital Signs Date Time Temp Pulse Resp B/P (MAP) Pulse Ox O2 Delivery O2 Flow Rate FiO2 03/21/20 17:51 61 165/66 03/21/20 16:00 99.3 54 18 165/66 (99) 97 03/21/20 16:00 49 03/21/20 12:00 49 03/21/20 12:00 99.5 57 18 159/64 (95) 98 03/21/20 09:00 Nasal Cannula 2.0 03/21/20 08:24 62 153/56 03/21/20 08:08 50 153/56 03/21/20 08:00 47 03/21/20 08:00 98.2 50 18 153/56 (88) 98 03/21/20 04:00 48 03/21/20 04:00 99.0 67 18 170/86 (114) 99 03/21/20 00:00 99.2 63 18 145/67 (93) 98 03/21/20 00:00 62 03/20/20 21:00 Nasal Cannula 2.0 03/20/20 20:27 84 142/78 Height (Feet): 5 Height (Inches): 5.00 Weight (Pounds): 225 GENERAL: The patient awake, responsive, no acute distress. HEENT: Head and neck examination, pupils are equal and reactive to light. Extraocular muscles intact. Neck was supple. No JVD. LUNGS: Good air entry. Decreased air in bases. HEART: S1, S2. Regular rhythm. No gallops. ABDOMEN: Soft, nontender, nondistended. Mildly obese. EXTREMITIES: No cyanosis, clubbing, or edema. Microbiology Date/Time Source Procedure Growth Status 03/20/20 08:30 Blood Blood Culture - Preliminary Resulted Laboratory Tests Test 03/20/20 20:29 03/21/20 04:53 03/21/20 06:25 POC Whole Blood Glucose 297 MG/DL (74-106) H 203 MG/DL (74-106) H White Blood Count 9.4 K/UL (4.8-10.8) Red Blood Count 4.28 M/UL (4.20-5.40) Hemoglobin 11.8 G/DL (12.0-16.0) L Hematocrit 36.8 % (37.0-47.0) L Mean Corpuscular Volume 86 FL (80-99) Mean Corpuscular Hemoglobin 27.5 PG (27.0-31.0) Mean Corpuscular Hemoglobin Concent 31.9 G/DL (32.0-36.0) L Red Cell Distribution Width 14.3 % (11.6-14.8) Platelet Count 395 K/UL (150-450) Mean Platelet Volume 5.9 FL (6.5-10.1) L Neutrophils (%) (Auto) 72.0 % (45.0-75.0) Lymphocytes (%) (Auto) 17.7 % (20.0-45.0) L Monocytes (%) (Auto) 9.3 % (1.0-10.0) Eosinophils (%) (Auto) 0.0 % (0.0-3.0) Basophils (%) (Auto) 1.0 % (0.0-2.0) Erythrocyte Sedimentation Rate 84 MM/HR (0-30) H Sodium Level 139 MMOL/L (136-145) Potassium Level 3.9 MMOL/L (3.5-5.1) Chloride Level 101 MMOL/L (98-107) Carbon Dioxide Level 27 MMOL/L (21-32) Anion Gap 11 mmol/L (5-15) Blood Urea Nitrogen 19 mg/dL (7-18) H Creatinine 1.0 MG/DL (0.55-1.30) Estimat Glomerular Filtration Rate > 60 mL/min (>60) Glucose Level 201 MG/DL (74-106) H Calcium Level 9.4 MG/DL (8.5-10.1) Phosphorus Level 2.9 MG/DL (2.5-4.9) Magnesium Level 2.1 MG/DL (1.8-2.4) Total Bilirubin 0.3 MG/DL (0.2-1.0) Aspartate Amino Transf (AST/SGOT) 47 U/L (15-37) H Alanine Aminotransferase (ALT/SGPT) 78 U/L (12-78) Alkaline Phosphatase 119 U/L (46-116) H C-Reactive Protein, Quantitative 2.4 mg/dL (0.00-0.90) H Total Protein 8.7 G/DL (6.4-8.2) H Albumin 3.6 G/DL (3.4-5.0) Globulin 5.1 g/dL Albumin/Globulin Ratio 0.7 (1.0-2.7) L Vancomycin Level Trough 18.2 ug/mL (5.0-12.0) H Current Medications Medications (Trade) Dose Ordered Sig/Nick Route PRN Reason Start Time Stop Time Status Last Admin Dose Admin Acetaminophen (Tylenol) 650 mg Q4H PRN ORAL FEVER 03/18/20 14:00 04/17/20 13:59 Albuterol/ Ipratropium (Albuterol/ Ipratropium) 3 ml Q4H PRN HHN Shortness of Breath 03/18/20 14:00 03/23/20 13:59 Allopurinol (Zyloprim) 200 mg DAILY ORAL 03/19/20 09:00 04/18/20 08:59 03/21/20 08:10 Amlodipine Besylate (Norvasc) 5 mg BID ORAL 03/21/20 18:00 04/18/20 08:59 03/21/20 17:51 Azithromycin (Zithromax) 500 mg DAILY ORAL 03/19/20 09:00 03/26/20 08:59 03/21/20 08:09 Carvedilol (Coreg) 12.5 mg EVERY 12 HOURS ORAL 03/18/20 21:00 04/17/20 20:59 03/20/20 20:27 Dexamethasone Sodium Phosphate (Decadron 4mg/ml vial) 6 mg DAILY IVP 03/19/20 09:00 03/28/20 08:59 03/21/20 08:09 Dextrose (Dextrose 50%) 25 ml Q30M PRN IV Hypoglycemia 03/18/20 14:00 06/16/20 13:59 Dextrose (Dextrose 50%) 50 ml Q30M PRN IV Hypoglycemia 03/18/20 14:00 06/16/20 13:59 Escitalopram Oxalate (Lexapro) 5 mg DAILY ORAL 03/19/20 09:00 04/18/20 08:59 03/21/20 08:08 Heparin Sodium (Porcine) (Heparin 5000 units/ml) 5,000 units EVERY 12 HOURS SUBQ 03/18/20 21:00 05/02/20 20:59 03/21/20 08:13 Insulin Aspart (NovoLOG) BEFORE MEALS AND HS SUBQ 03/18/20 16:30 06/16/20 16:29 03/21/20 16:53 Lorazepam (Ativan 2mg/ml 1ml) 2 mg Q2H PRN IV For Anxiety 03/18/20 14:00 03/25/20 13:59 Meropenem 1 gm/ Sodium Chloride 55 ml @ 110 mls/hr Q12HR@0400,1600 IVPB 03/21/20 16:00 03/26/20 15:59 03/21/20 17:51 Ondansetron HCl (Zofran) 4 mg Q6H PRN IVP Nausea & Vomiting 03/18/20 14:00 04/17/20 13:59 Polyethylene Glycol (Miralax) 17 gm DAILYPRN PRN ORAL Constipation 03/18/20 14:00 04/17/20 13:59 Promethazine HCl/ Codeine (Phenergan with Codeine) 5 ml Q4H PRN ORAL For Cough 03/18/20 14:00 04/17/20 13:59 Remdesivir 100 mg/ Sodium Chloride 250 ml @ 250 mls/hr Q24H IV 03/21/20 14:00 03/24/20 14:59 03/21/20 16:27 Vancomycin HCl (Vanco pharmacy to dose) 1 ea DAILY PRN MISC . 03/18/20 14:15 04/17/20 14:14 Vancomycin HCl 750 mg/Sodium Chloride 250 ml @ 166.667 mls/hr Q8HR@0500,1300,2100 IVPB 03/20/20 13:00 03/25/20 12:59 03/21/20 12:29 Kathryn Hernandez M.D. Mar 21, 2020 20:35
[2020-03-22] VITALS: BP 168/74
[2020-03-22] MEDS ORDERED: HydrALAZINE 10mg Tab ORAL PRN (00:30)
[2020-03-22] MEDS: Meropenem 1gm/NS 55ml IVPB SCH ×4 (03:58→15:36)
[2020-03-22 04:00] VITALS: BP 157/61
[2020-03-22] MEDS: NovoLOG Insulin Flexpen SUBQ SCH ×4 (05:48→20:34)
[2020-03-22 07:03] LABS: BASOPHILS % (AUTO) 1.1 % (0.0-2.0); HEMATOCRIT 34.9 % (37.0-47.0); HEMOGLOBIN 11.2 G/DL (12.0-16.0); LYMPHOCYTES % (AUTO) 28.8 % (20.0-45.0); MEAN CORPUSCULAR VOLUME 86 FL (80-99); MONOCYTES % (AUTO) 10.7 % (1.0-10.0); NEUTROPHILS % (AUTO) 59.4 % (45.0-75.0); PLATELET COUNT 357 K/UL (150-450); RED BLOOD COUNT 4.08 M/UL (4.20-5.40); RED CELL DISTRIBUTION WIDTH 14.6 % (11.6-14.8); WHITE BLOOD COUNT 7.7 K/UL (4.8-10.8)
--- NOTE | 2020-03-22 07:15 | NUR ---
NURSE HAND-OFF REPORT: Important Events on Shift:Pt simple mask increased to 10lpm. Patient Status: Stable Diet: Cardiac Diet Pending Orders: CXR Pending Results/Labs:AM Labs Latest Vital Signs: Temperature 97.9 , Pulse 51 , B/P 157 /61 , Respiratory Rate 18 , O2 SAT 99 , Nasal Cannula, O2 Flow Rate 2.0 . Vital Sign Comment: VSS EKG Rhythm: Sinus Bradycardia Rhythm change?: N Notified?: N -Dr Jose J BADILLO Response: No New Orders Received Latest Garcia Fall Score: 50 Fall Risk: High Risk Safety Measures: Call light Within Reach, Bed Alarm Zone 2, Side Rails Side Rails x2, Bed position Low and Locked. Fall Precautions: Yellow Socks Yellow Gown Door Sign Patient Fall Education Report given to PRITESH Anderson.
--- NOTE | 2020-03-22 07:43 | NUR ---
NURSE NOTES: Received patient in bed. Awake, A/O x2. On 2 L via NC. Patient denies pain at this time. IV in the Left AC, site intact. Patient is a high fall risk d/t Garcia fall score of 50. Patient placed close to the nurse's station for safety and close monitoring. Yellow socks on, yellow gown on, bed alarm placed on high sensitivity, bed at the lowest position, side rails up x2, bed alarm within reach - unable to return demonstration. CN and SPRINKLING SYSTEM IRRIGATOR made aware. Heart monitor on.
--- NOTE | 2020-03-22 07:46 | NUR ---
NURSE HAND-OFF REPORT: Important Events on Shift:Pt started Vancomycin and Meropenem. Pt received new orders for Hydralazine and Clonidine. Sputum culture not collected Patient Status: Stable Diet: CCHO Med Pending Results/Labs:AM Labs Latest Vital Signs: Temperature 97.9 , Pulse 51 , B/P 157 /61 , Respiratory Rate 18 , O2 SAT 99 , Nasal Cannula, O2 Flow Rate 2.0 . Vital Sign Comment: Pt bradycardia and hypertension EKG Rhythm: Sinus Bradycardia Rhythm change?: N Notified?: N -Dr Jose J BADILLO Response: No New Orders Received Latest Garcia Fall Score: 50 Fall Risk: High Risk Safety Measures: Call light Within Reach, Bed Alarm Zone 2, Side Rails Side Rails x2, Bed position Low and Locked. Fall Precautions: Yellow Socks Yellow Gown Door Sign Patient Fall Education Report given to PRITESH Anderson.
[2020-03-22 08:00] VITALS: BP 161/61
[2020-03-22 08:06] LABS: ALANINE AMINOTRANSFERASE 66 U/L (12-78); ALBUMIN 3.1 G/DL (3.4-5.0); ALBUMIN/GLOBULIN RATIO 0.7 (1.0-2.7); ALKALINE PHOSPHATASE 106 U/L (46-116); ANION GAP 11 mmol/L (5-15); ASPARTATE AMINO TRANSFERASE 34 U/L (15-37); BILIRUBIN,TOTAL 0.3 MG/DL (0.2-1.0); BLOOD UREA NITROGEN 17 mg/dL (7-18); CALCIUM 9.1 MG/DL (8.5-10.1); CARBON DIOXIDE 25 MMOL/L (21-32); CHLORIDE 103 MMOL/L (98-107); CREATININE 0.9 MG/DL (0.55-1.30); PHOSPHORUS 3.2 MG/DL (2.5-4.9); SODIUM 139 MMOL/L (136-145)
[2020-03-22] MEDS: Carvedilol 12.5mg tab ORAL SCH ×2 (09:00→20:07)
[2020-03-22] MEDS: HydrALAZINE 25mg tab ORAL SCH ×3 (09:17→17:26)
[2020-03-22] MEDS: Allopurinol 100mg Tab ORAL SCH (09:17)
[2020-03-22] MEDS: Azithromycin 250mg tab ORAL SCH (09:17)
[2020-03-22] MEDS: Heparin 5000 units/ml inj SUBQ SCH ×2 (09:27→20:09)
--- NOTE | 2020-03-22 09:36 | NUR ---
NURSE NOTES: PO coreg held d/t HR of 46.
--- NOTE | 2020-03-22 11:04 | Diagnostic Imaging Report ---
Indication: Shortness of breath Technique: One view of the chest Comparison: none Findings: Heart is enlarged. Previously demonstrated interstitial congestive changes are less prominent, allowing for differences in degree of exposure. Left axillary surgical clips are again demonstrated.. Impression: Cardiomegaly Decreased and now minimal interstitial congestion
--- NOTE | 2020-03-22 11:31 | Pulmonology Progress Note ---
Subjective ROS Limited/Unobtainable: Yes Constitutional: Reports: no symptoms HEENT: Repors: no symptoms Respiratory: Reports: no symptoms Allergies: Coded Allergies: No Known Allergies (Unverified , 09/17/12) Objective Last 24 Hour Vital Signs Date Time Temp Pulse Resp B/P (MAP) Pulse Ox O2 Delivery O2 Flow Rate FiO2 03/22/20 09:34 46 161/61 03/22/20 09:17 161/61 03/22/20 08:11 Nasal Cannula 2.0 03/22/20 08:00 97.9 46 18 161/61 (94) 99 03/22/20 08:00 46 03/22/20 07:15 99 Nasal Cannula 2.0 28 03/22/20 04:00 97.9 51 18 157/61 (93) 99 03/22/20 04:00 41 03/22/20 03:59 172/68 03/22/20 00:00 97.7 60 20 168/74 (105) 100 03/22/20 00:00 44 03/21/20 22:38 99 Nasal Cannula 2.0 28 03/21/20 21:49 59 168/69 03/21/20 21:00 Nasal Cannula 2.0 03/21/20 20:00 98.2 55 18 161/63 (95) 95 03/21/20 17:51 61 165/66 03/21/20 16:00 99.3 54 18 165/66 (99) 97 03/21/20 16:00 49 03/21/20 12:00 49 03/21/20 12:00 99.5 57 18 159/64 (95) 98 Intake and Output 03/21/20 03/22/20 19:00 07:00 Intake Total 120 ml 240 ml Output Total 450 ml Balance 120 ml -210 ml Intake Oral 120 ml 240 ml Output Urine Total 450 ml # Voids 1 1 # Bowel Movements 1 General Appearance: WD/WN HEENT: normocephalic, atraumatic Respiratory: chest wall non-tender, lungs clear Breasts: no masses Cardiovascular: normal peripheral pulses, normal rate Abdomen: normal bowel sounds Genitourinary: normal external genitalia Extremities: no cyanosis Skin: no lesions Neurologic: senior caregiver II-XII grossly normal Microbiology Date/Time Source Procedure Growth Status 03/20/20 08:30 Blood Blood Culture - Preliminary Staphylococcus Sp Coag Neg Resulted 03/20/20 08:20 Blood Blood Culture - Preliminary NO GROWTH AFTER 24 HOURS Resulted Laboratory Tests 03/22/20 05:30: White Blood Count 7.7, Red Blood Count 4.08L, Hemoglobin 11.2L, Hematocrit 34.9L , Mean Corpuscular Volume 86, Mean Corpuscular Hemoglobin 27.4, Mean Corpuscular Hemoglobin Concent 32.0, Red Cell Distribution Width 14.6, Platelet Count 357, Mean Platelet Volume 5.3L, Neutrophils (%) (Auto) 59.4, Lymphocytes (%) (Auto) 28.8, Monocytes (%) (Auto) 10.7H, Eosinophils (%) (Auto) 0.0, Basophils (%) (Auto) 1.1, Erythrocyte Sedimentation Rate 87H, Sodium Level 139, Potassium L evel 4.0, Chloride Level 103, Carbon Dioxide Level 25, Anion Gap 11, Blood Urea Nitrogen 17, Creatinine 0.9, Estimat Glomerular Filtration Rate > 60, Glucose Level 167H, Calcium Level 9.1, Phosphorus Level 3.2, Magnesium Level 2.0, Total Bilirubin 0.3, Direct Bilirubin < 0.1, Aspartate Amino Transf (AST/SGOT) 34, Alanine Aminotransferase (ALT/SGPT) 66, Alkaline Phosphatase 106, C-Reactive Protein, Quantitative 1.7H, Total Protein 7.7, Albumin 3.1L, Globulin 4.6, Albumin/Globulin Ratio 0.7L 03/22/20 10:57: POC Whole Blood Glucose [Pending] Current Medications Medications (Trade) Dose Ordered Sig/Nick Route PRN Reason Start Time Stop Time Status Last Admin Dose Admin Acetaminophen (Tylenol) 650 mg Q4H PRN ORAL FEVER 03/18/20 14:00 04/17/20 13:59 Albuterol/ Ipratropium (Albuterol/ Ipratropium) 3 ml Q4H PRN HHN Shortness of Breath 03/18/20 14:00 03/23/20 13:59 Allopurinol (Zyloprim) 200 mg DAILY ORAL 03/19/20 09:00 04/18/20 08:59 03/22/20 09:17 Amlodipine Besylate (Norvasc) 5 mg BID ORAL 03/21/20 18:00 04/18/20 08:59 03/22/20 09:34 Azithromycin (Zithromax) 500 mg DAILY ORAL 03/19/20 09:00 03/26/20 08:59 03/22/20 09:17 Carvedilol (Coreg) 6.25 mg EVERY 12 HOURS ORAL 03/22/20 09:00 04/17/20 20:59 Clonidine HCl (Catapres Tab) 0.1 mg Q4H PRN ORAL For High Blood Pressure 03/22/20 03:45 06/20/20 03:44 03/22/20 03:59 Dexamethasone Sodium Phosphate (Decadron 4mg/ml vial) 6 mg DAILY IVP 03/19/20 09:00 03/28/20 08:59 03/22/20 09:17 Dextrose (Dextrose 50%) 25 ml Q30M PRN IV Hypoglycemia 03/18/20 14:00 06/16/20 13:59 Dextrose (Dextrose 50%) 50 ml Q30M PRN IV Hypoglycemia 03/18/20 14:00 06/16/20 13:59 Escitalopram Oxalate (Lexapro) 5 mg DAILY ORAL 03/19/20 09:00 04/18/20 08:59 03/22/20 09:17 Heparin Sodium (Porcine) (Heparin 5000 units/ml) 5,000 units EVERY 12 HOURS SUBQ 03/18/20 21:00 05/02/20 20:59 03/22/20 09:27 Hydralazine HCl (Apresoline) 25 mg TID ORAL 03/22/20 09:00 06/20/20 08:59 03/22/20 09:17 Hydralazine HCl (Apresoline) 50 mg EVERY 8 HOURS PRN ORAL For High Blood Pressure 03/22/20 00:30 06/20/20 00:29 Insulin Aspart (NovoLOG) BEFORE MEALS AND HS SUBQ 03/18/20 16:30 06/16/20 16:29 03/22/20 05:48 Lorazepam (Ativan 2mg/ml 1ml) 2 mg Q2H PRN IV For Anxiety 03/18/20 14:00 03/25/20 13:59 Meropenem 1 gm/ Sodium Chloride 55 ml @ 110 mls/hr Q12HR@0400,1600 IVPB 03/21/20 16:00 03/26/20 15:59 03/22/20 03:58 Ondansetron HCl (Zofran) 4 mg Q6H PRN IVP Nausea & Vomiting 03/18/20 14:00 04/17/20 13:59 Polyethylene Glycol (Miralax) 17 gm DAILYPRN PRN ORAL Constipation 03/18/20 14:00 04/17/20 13:59 Promethazine HCl/ Codeine (Phenergan with Codeine) 5 ml Q4H PRN ORAL For Cough 03/18/20 14:00 04/17/20 13:59 Remdesivir 100 mg/ Sodium Chloride 250 ml @ 250 mls/hr Q24H IV 03/21/20 14:00 03/24/20 14:59 03/21/20 16:27 Vancomycin HCl (Vanco pharmacy to dose) 1 ea DAILY PRN MISC . 03/18/20 14:15 04/17/20 14:14 Vancomycin HCl 750 mg/Sodium Chloride 250 ml @ 166.667 mls/hr Q8HR@0500,1300,2100 IVPB 03/20/20 13:00 03/25/20 12:59 03/22/20 05:00 Assessment/Plan Problems: (1) 2019 novel coronavirus disease (COVID-19) (2) UTI (urinary tract infection) (3) Diabetes mellitus (4) History of hypertension (5) Gout (6) HX: breast cancer (7) Major depression, recurrent Assessment/Plan afebrile check cxr,still pending respiratory isolation check urine culture ID evaluation appreciated sliding scale diabetic diet monitor BP Calli Lux MD Mar 22, 2020 11:31
--- NOTE | 2020-03-22 11:40 | NUR ---
NURSE NOTES: Dr. Lux notified of HR 46. No new orders.
[2020-03-22 12:00] VITALS: BP 147/62
--- NOTE | 2020-03-22 12:39 | NUR ---
RD ASSESSMENT & RECOMMENDATIONS SEE CARE ACTIVITY FOR COMPLETE ASSESSMENT DAILY ESTIMATED NEEDS: Needs based on DM, OBESE/ 69kg abw 22-27 kcals/kg 7147-3503 total kcals 1-1.3 g protein/kg 69-89 g total protein 25-30 mL/kg 3842-2957 total fluid mLs NUTRITION DIAGNOSIS: Altered nutrition related lab values R/T DM + on steroidal med and HTN as evidenced by elev BGs (167 201 211), pt on Decadron, elev BPs (198/110). CURRENT DIET:[facility]HO MED PO DIET RECOMMENDATIONS: Maintain CCHO MED/ texture as tolerated ADDITIONAL RECOMMENDATIONS: * Standing wt as able for accurate CBW * Glucerna TID w/ poor PO (DC Glucerna once PO intake consistently >50%) * Monitor BGs, need for long acting insulin * Add LOW NA to diet once PO intake consistently >50% * Monitor lytes, replete as needed * Skin integrity: MVI x 1 + Vit C 250mg QD
--- NOTE | 2020-03-22 12:59 | NUR ---
RADIOLOGY DEPT., CHEST X-RAY DONE.-P.DYE
[2020-03-22] MEDS: Maintenance Dose:Remdesivir 100mg/NS 230ml x 4 Doses IV SCH ×2 (14:18)
--- NOTE | 2020-03-22 14:55 | Cardiology Progress Note ---
Assessment/Plan Assessment/Plan [id number] jay jay sinus asymptomatic bp elevated need to restart cozaar agree with decrease in coreg dose for now echo when safe to see if needs coreg avoid neg chronotropic meds Objective Last 24 Hour Vital Signs Date Time Temp Pulse Resp B/P (MAP) Pulse Ox O2 Delivery O2 Flow Rate FiO2 03/22/20 13:02 147/62 03/22/20 12:00 98.5 53 18 147/62 (90) 98 03/22/20 12:00 48 03/22/20 09:34 46 161/61 03/22/20 09:17 161/61 03/22/20 08:11 Nasal Cannula 2.0 03/22/20 08:00 97.9 46 18 161/61 (94) 99 03/22/20 08:00 46 03/22/20 07:15 99 Nasal Cannula 2.0 28 03/22/20 04:00 97.9 51 18 157/61 (93) 99 03/22/20 04:00 41 03/22/20 03:59 172/68 03/22/20 00:00 97.7 60 20 168/74 (105) 100 03/22/20 00:00 44 03/21/20 22:38 99 Nasal Cannula 2.0 28 03/21/20 21:49 59 168/69 03/21/20 21:00 Nasal Cannula 2.0 03/21/20 20:00 98.2 55 18 161/63 (95) 95 03/21/20 17:51 61 165/66 03/21/20 16:00 99.3 54 18 165/66 (99) 97 03/21/20 16:00 49 Intake and Output 03/21/20 03/22/20 19:00 07:00 Intake Total 120 ml 240 ml Output Total 450 ml Balance 120 ml -210 ml Intake Oral 120 ml 240 ml Output Urine Total 450 ml # Voids 1 1 # Bowel Movements 1 Laboratory Tests Test 03/22/20 05:30 03/22/20 10:57 03/22/20 12:40 White Blood Count 7.7 K/UL (4.8-10.8) Red Blood Count 4.08 M/UL (4.20-5.40) L Hemoglobin 11.2 G/DL (12.0-16.0) L Hematocrit 34.9 % (37.0-47.0) L Mean Corpuscular Volume 86 FL (80-99) Mean Corpuscular Hemoglobin 27.4 PG (27.0-31.0) Mean Corpuscular Hemoglobin Concent 32.0 G/DL (32.0-36.0) Red Cell Distribution Width 14.6 % (11.6-14.8) Platelet Count 357 K/UL (150-450) Mean Platelet Volume 5.3 FL (6.5-10.1) L Neutrophils (%) (Auto) 59.4 % (45.0-75.0) Lymphocytes (%) (Auto) 28.8 % (20.0-45.0) Monocytes (%) (Auto) 10.7 % (1.0-10.0) H Eosinophils (%) (Auto) 0.0 % (0.0-3.0) Basophils (%) (Auto) 1.1 % (0.0-2.0) Erythrocyte Sedimentation Rate 87 MM/HR (0-30) H Sodium Level 139 MMOL/L (136-145) Potassium Level 4.0 MMOL/L (3.5-5.1) Chloride Level 103 MMOL/L (98-107) Carbon Dioxide Level 25 MMOL/L (21-32) Anion Gap 11 mmol/L (5-15) Blood Urea Nitrogen 17 mg/dL (7-18) Creatinine 0.9 MG/DL (0.55-1.30) Estimat Glomerular Filtration Rate > 60 mL/min (>60) Glucose Level 167 MG/DL (74-106) H Calcium Level 9.1 MG/DL (8.5-10.1) Phosphorus Level 3.2 MG/DL (2.5-4.9) Magnesium Level 2.0 MG/DL (1.8-2.4) Total Bilirubin 0.3 MG/DL (0.2-1.0) Direct Bilirubin < 0.1 MG/DL (0.0-0.3) Aspartate Amino Transf (AST/SGOT) 34 U/L (15-37) Alanine Aminotransferase (ALT/SGPT) 66 U/L (12-78) Alkaline Phosphatase 106 U/L (46-116) C-Reactive Protein, Quantitative 1.7 mg/dL (0.00-0.90) H Total Protein 7.7 G/DL (6.4-8.2) Albumin 3.1 G/DL (3.4-5.0) L Globulin 4.6 g/dL Albumin/Globulin Ratio 0.7 (1.0-2.7) L POC Whole Blood Glucose Pending Vancomycin Level Trough 19.9 ug/mL (5.0-12.0) H Microbiology Date/Time Source Procedure Growth Status 03/20/20 08:30 Blood Blood Culture - Preliminary Staphylococcus Sp Coag Neg Resulted 03/20/20 08:20 Blood Blood Culture - Preliminary NO GROWTH AFTER 24 HOURS Resulted Giovanni Veloz MD Mar 22, 2020 14:55
[2020-03-22] MEDS: Losartan 50mg tab ORAL SCH ×2 (15:31→20:08)
[2020-03-22 16:00] VITALS: BP 150/69
--- NOTE | 2020-03-22 16:29 | Consultation ---
DATE OF CONSULTATION: 03/22/2020 CARDIOLOGY CONSULTATION CONSULTING PHYSICIAN: Giovanni Veloz MD. REFERRING PHYSICIAN: Calli Lux MD. REASON FOR REFERRAL: Bradycardia. HISTORY OF PRESENT ILLNESS: This is a 74-year-old female with history of multiple medical problems as detailed below. The patient is a resident of convalescent facility, was noted to have low oxygen saturation, was transferred to the emergency room at [facility]. History is obtained from review of the patient's chart. The patient was a COVID positive swab on 03/15/2020 results of which was apparent on 03/17/2020. A chest x-ray on that day showed bilateral pulmonary infiltration. The patient was transferred to [facility] for evaluation of COVID-19 pneumonia. Patient's information is obtained from the chart as well as from my review of the [facility] records. The patient felt to be a poor historian through the emergency room physician's documentation and at the time apparently she denied any chest pain, abdominal pain or discomfort or fevers or chills or any other symptoms. PAST MEDICAL HISTORY: Positive for history of diabetes mellitus, gastroesophageal reflux disease, history of breast cancer for which she underwent a left breast partial mastectomy, systemic hypertension, left posterior limb stroke. She reportedly has a history of heart failure, obesity as well according to the records here, but the details of which are really not known. PAST SURGICAL HISTORY: Hysterectomy and left breast mastectomy. ALLERGIES: She has no known drug allergies. MEDICATIONS: Review of the medications from the convalescent facility indicated that the patient has been on allopurinol, amlodipine 10 mg a day, aspirin, carvedilol 12.5 mg twice daily, Colace as well as Lexapro, iron sulfate, Lasix 20 mg a day for congestive heart failure, gabapentin, hydrochlorothiazide in addition to Lasix, losartan 50 mg 1 time a day, magnesium, metformin, multivitamins, NovoLog insulin, Crestor 10 mg, and vitamin C as well. The patient's medications here also reviewed. She seems to be getting the same dose of Coreg before. The dose was decreased today because of bradycardia down to 6.25 mg, which I feel is appropriate. The patient was getting Cozaar, which I do not see her getting here and I think that should be resumed as well. SOCIAL HISTORY: Never smoked. Does not use any alcoholic beverages or drugs. She resides in a convalescent facility. REVIEW OF SYSTEMS: Really not able to obtain from the patient in the emergency room physician's notation. Patient denied any fevers, headache, nausea, vomiting, chest pain, abdominal pain, or discomfort of any kind. PHYSICAL EXAMINATION: This was deferred secondary to active COVID infection. CARDIAC: Review of the chart indicates that patient has a regular rate and rhythm. No murmurs appreciated. HEENT: Unremarkable. GENERAL: Patient was awake, alert, no acute respiratory distress with low-grade fevers. RESPIRATORY: 2 liters nasal cannula. Normal work of breathing. No cough or wheezing or crackles appreciated by the emergency room physician. ABDOMEN: Soft, nontender. SKIN: No lesions in the lower extremities. LABORATORY AND DIAGNOSTIC DATA: White count of 7.7, hemoglobin 11.2, and platelet count 357. Sodium is 139, potassium 4.0, chloride 103, bicarb 25, BUN 17, creatinine 0.9, glucose of 167, calcium 9.1, phosphorus of 3.2, magnesium of 3.0. AST of 34, ALT of 66, and alkaline phosphatase is 106. of 1.7 down from 2.4. Albumin of 3.1. Coags, INR of 0.9 two days ago with PTT of 27, of 412. D-dimer of 0.77 and 0.81. Urinalysis shows 10 to 15 rbc's, 60 to 80 wbc's, 3+ leukocyte esterase. Microbiology shows 2 sets of blood cultures, 1 growing Staphylococcus warneri, second one is Staphylococcus hominis. COVID SARS rapid swab was positive here as well. The patient's urine cultures now growing E. coli ESBL and repeat blood culture 1 of 2 was negative. The second 1 shows Staphylococcus aureus. The patient's electrocardiogram was reviewed. The patient in sinus rhythm, rate of 80. No significant ST or T-wave abnormalities. She did have leftward axis. Left axis deviation was noted. Her telemetry data was reviewed. Heart rates are in the 40s and even in the middle of the night in the 30s were documented. At the time of admission, her heart rates were in the 70s. ASSESSMENT AND PLAN: 1. Acute COVID-19 infection. 2. COVID-19 pneumonia. 3. History of cardiomyopathy reportedly. 4. Diabetes mellitus. 5. Hypertension. 6. Hyperlipidemia. 7. Obesity. Dr. Lux, this patient was seen in cardiac consultation. The patient's blood pressure appears to be relatively stable and normal in fact on the high side. The patient is somewhat bradycardic although she is on a lower dose of beta-blockers. The etiology of the decrease in heart rate while inpatient compared to her EKG at the time of admission is not really apparent. None of her medications otherwise can cause bradycardia of that significant degree. She will be followed on telemetry. If needed, the dose of the Coreg will be readjusted downward. An echocardiogram will be ordered to evaluate her systolic function to see if she truly needs to be on carvedilol at all at this time in light of the bradycardia. Further recommendations will be provided once that is known. The patient otherwise should be back on her Cozaar that she was receiving as outpatient and if needed the dose could be adjusted upward rather than administering any other medication like hydralazine. The patient had a chest x-ray that showed some cardiomegaly. Interstitial congestive changes were less prominent and some surgical clips were noted in the axilla, which may be related to her breast surgery. She will have a set of cardiac enzymes repeated. Giovanni Veloz M.D. DR: ELSIE JOB#: [id number] CC:
--- NOTE | 2020-03-22 16:30 | Internal Med Progress Note ---
Subjective Date of Service: Mar 22, 2020 Physician Name BessBk Attending Physician Papa French MD Current Medications Medications (Trade) Dose Ordered Sig/Nick Route PRN Reason Start Time Stop Time Status Last Admin Dose Admin Acetaminophen (Tylenol) 650 mg Q4H PRN ORAL FEVER 03/18/20 14:00 04/17/20 13:59 Albuterol/ Ipratropium (Albuterol/ Ipratropium) 3 ml Q4H PRN HHN Shortness of Breath 03/18/20 14:00 03/23/20 13:59 Allopurinol (Zyloprim) 200 mg DAILY ORAL 03/19/20 09:00 04/18/20 08:59 03/22/20 09:17 Amlodipine Besylate (Norvasc) 5 mg BID ORAL 03/21/20 18:00 04/18/20 08:59 03/22/20 09:34 Azithromycin (Zithromax) 500 mg DAILY ORAL 03/19/20 09:00 03/26/20 08:59 03/22/20 09:17 Carvedilol (Coreg) 6.25 mg EVERY 12 HOURS ORAL 03/22/20 09:00 04/17/20 20:59 Clonidine HCl (Catapres Tab) 0.1 mg Q4H PRN ORAL For High Blood Pressure 03/22/20 03:45 06/20/20 03:44 03/22/20 03:59 Dexamethasone Sodium Phosphate (Decadron 10mg/ ml Inj) 6 mg DAILY IV 03/23/20 09:00 03/28/20 08:59 Dextrose (Dextrose 50%) 25 ml Q30M PRN IV Hypoglycemia 03/18/20 14:00 06/16/20 13:59 Dextrose (Dextrose 50%) 50 ml Q30M PRN IV Hypoglycemia 03/18/20 14:00 06/16/20 13:59 Escitalopram Oxalate (Lexapro) 5 mg DAILY ORAL 03/19/20 09:00 04/18/20 08:59 03/22/20 09:17 Heparin Sodium (Porcine) (Heparin 5000 units/ml) 5,000 units EVERY 12 HOURS SUBQ 03/18/20 21:00 05/02/20 20:59 03/22/20 09:27 Hydralazine HCl (Apresoline) 25 mg TID ORAL 03/22/20 09:00 06/20/20 08:59 03/22/20 13:02 Hydralazine HCl (Apresoline) 50 mg EVERY 8 HOURS PRN ORAL For High Blood Pressure 03/22/20 00:30 06/20/20 00:29 Insulin Aspart (NovoLOG) BEFORE MEALS AND HS SUBQ 03/18/20 16:30 06/16/20 16:29 03/22/20 11:39 Lorazepam (Ativan 2mg/ml 1ml) 2 mg Q2H PRN IV For Anxiety 03/18/20 14:00 03/25/20 13:59 Losartan Potassium (Cozaar) 50 mg EVERY 12 HOURS ORAL 03/22/20 15:00 04/21/20 14:59 03/22/20 15:31 Meropenem 1 gm/ Sodium Chloride 55 ml @ 110 mls/hr Q12HR@0400,1600 IVPB 03/21/20 16:00 03/26/20 15:59 03/22/20 15:36 Ondansetron HCl (Zofran) 4 mg Q6H PRN IVP Nausea & Vomiting 03/18/20 14:00 04/17/20 13:59 Polyethylene Glycol (Miralax) 17 gm DAILYPRN PRN ORAL Constipation 03/18/20 14:00 04/17/20 13:59 Promethazine HCl/ Codeine (Phenergan with Codeine) 5 ml Q4H PRN ORAL For Cough 03/18/20 14:00 04/17/20 13:59 Remdesivir 100 mg/ Sodium Chloride 250 ml @ 250 mls/hr Q24H IV 03/21/20 14:00 03/24/20 14:59 03/22/20 14:18 Vancomycin HCl ([facility] pharmacy to dose) 1 ea DAILY PRN MISC . 03/18/20 14:15 04/17/20 14:14 Vancomycin HCl 750 mg/Sodium Chloride 250 ml @ 166.667 mls/hr Q8HR@0500,1300,2100 IVPB 03/20/20 13:00 03/25/20 12:59 03/22/20 13:26 Allergies: Coded Allergies: No Known Allergies (Unverified , 09/17/12) ROS Limited/Unobtainable: Yes Subjective 74 YO F admitted with fever. Now COVID 19 positive and pneumonia. Cover for Int [facility]-Dr French Objective Last Vital Signs Date Time Temp Pulse Resp B/P (MAP) Pulse Ox O2 Delivery O2 Flow Rate FiO2 03/22/20 16:00 98.1 60 18 150/69 (96) 98 03/22/20 08:11 Nasal Cannula 2.0 03/22/20 07:15 28 Laboratory Tests Test 03/22/20 05:30 03/22/20 10:57 03/22/20 12:40 White Blood Count 7.7 K/UL (4.8-10.8) Red Blood Count 4.08 M/UL (4.20-5.40) L Hemoglobin 11.2 G/DL (12.0-16.0) L Hematocrit 34.9 % (37.0-47.0) L Mean Corpuscular Volume 86 FL (80-99) Mean Corpuscular Hemoglobin 27.4 PG (27.0-31.0) Mean Corpuscular Hemoglobin Concent 32.0 G/DL (32.0-36.0) Red Cell Distribution Width 14.6 % (11.6-14.8) Platelet Count 357 K/UL (150-450) Mean Platelet Volume 5.3 FL (6.5-10.1) L Neutrophils (%) (Auto) 59.4 % (45.0-75.0) Lymphocytes (%) (Auto) 28.8 % (20.0-45.0) Monocytes (%) (Auto) 10.7 % (1.0-10.0) H Eosinophils (%) (Auto) 0.0 % (0.0-3.0) Basophils (%) (Auto) 1.1 % (0.0-2.0) Erythrocyte Sedimentation Rate 87 MM/HR (0-30) H Sodium Level 139 MMOL/L (136-145) Potassium Level 4.0 MMOL/L (3.5-5.1) Chloride Level 103 MMOL/L (98-107) Carbon Dioxide Level 25 MMOL/L (21-32) Anion Gap 11 mmol/L (5-15) Blood Urea Nitrogen 17 mg/dL (7-18) Creatinine 0.9 MG/DL (0.55-1.30) Estimat Glomerular Filtration Rate > 60 mL/min (>60) Glucose Level 167 MG/DL (74-106) H Calcium Level 9.1 MG/DL (8.5-10.1) Phosphorus Level 3.2 MG/DL (2.5-4.9) Magnesium Level 2.0 MG/DL (1.8-2.4) Total Bilirubin 0.3 MG/DL (0.2-1.0) Direct Bilirubin < 0.1 MG/DL (0.0-0.3) Aspartate Amino Transf (AST/SGOT) 34 U/L (15-37) Alanine Aminotransferase (ALT/SGPT) 66 U/L (12-78) Alkaline Phosphatase 106 U/L (46-116) C-Reactive Protein, Quantitative 1.7 mg/dL (0.00-0.90) H Total Protein 7.7 G/DL (6.4-8.2) Albumin 3.1 G/DL (3.4-5.0) L Globulin 4.6 g/dL Albumin/Globulin Ratio 0.7 (1.0-2.7) L POC Whole Blood Glucose Pending Vancomycin Level Trough 19.9 ug/mL (5.0-12.0) H Microbiology Date/Time Source Procedure Growth Status 03/20/20 08:30 Blood Blood Culture - Preliminary Staphylococcus Sp Coag Neg Resulted 03/20/20 08:20 Blood Blood Culture - Preliminary NO GROWTH AFTER 24 HOURS Resulted Intake and Output 03/21/20 03/22/20 19:00 07:00 Intake Total 120 ml 240 ml Output Total 450 ml Balance 120 ml -210 ml Intake Oral 120 ml 240 ml Output Urine Total 450 ml # Voids 1 1 # Bowel Movements 1 Objective PHYSICAL EXAMINATION: GENERAL: The patient awake, responsive, no acute distress. HEENT: Head and neck examination, pupils are equal and reactive to light. Extraocular muscles intact. Neck was supple. No JVD. LUNGS: Good air entry. Decreased air in bases. HEART: S1, S2. Regular rhythm. No gallops. ABDOMEN: Soft, nontender, nondistended. Mildly obese. EXTREMITIES: No cyanosis, clubbing, or edema. NEUROLOGIC: Cranial nerves II through XII grossly intact. The patient moving all extremities. RECTAL: Refused and deferred. GENITOURINARY: Refused and deferred. PSYCHIATRIC: Mood and affect is intact. Assessment/Plan Assessment/Plan ASSESSMENT: 1. COVID-19 pneumonia. 2. Acute hypoxemic respiratory failure. 3. Low-grade fever, possible due to the pneumonia. 4. Possible urinary tract infection. 5. Congestive heart failure, chronic. 6. Obesity. 7. Hypertension. 8. Diabetes type 2. 9. History of CVA. 10. UTI=ESBL E. Coli PLAN: 1. Admit the patient to monitored unit. 2. antibiotic=vancomycin, meropenem, and azithromycin. S/P cefepime 3. Continue Decadron IV. 4. Continue Remdesivir 5. DVT prophylaxis=heparin subcutaneous. 6. Code status is Full Code. 7. Dr. Calli Lux=Pulmonary Critical Care 8. Dr. Hernandez = Infectious Disease Bk Kellogg MD Mar 22, 2020 16:29
--- NOTE | 2020-03-22 16:47 | NUR ---
NURSE NOTES: RN attempted to collect sputum specimen. Patient unable to provide specimen. Patient states "It is dry. I am too weak."
--- NOTE | 2020-03-22 18:57 | NUR ---
NURSE HAND-OFF REPORT: Important Events on Shift:[IV antibiotics/antivirals, new IV insertion, PRN miralax] Patient Status: [Full code] Diet: [CCHO medium] Pending Orders: [] Pending Results/Labs:[] Pending MD notification:[] Latest Vital Signs: Temperature 98.1 , Pulse 60 , B/P 150 /69 , Respiratory Rate 18 , O2 SAT 98 , Nasal Cannula, O2 Flow Rate 2.0 . Vital Sign Comment: [] EKG Rhythm: Sinus Bradycardia Rhythm change?: N Notified?: N -Dr Jose J BADILLO Response: No New Orders Received Latest Garcia Fall Score: 50 Fall Risk: High Risk Safety Measures: Call light Within Reach, Bed Alarm Zone 1, Side Rails Side Rails x2, Bed position Low and Locked. Fall Precautions: Yellow Socks Yellow Gown Door Sign Patient Fall Education Report given to [Latrice JONAS].
--- NOTE | 2020-03-22 19:25 | NUR ---
NURSE NOTES: Received report from PRITESH Anderson. Patient is awake, on bed, alert and oriented x 1. awake overnight monitor is in place, shows sinus bradycardia. On oxygen via nasal cannula @ 2Lpm with no shortness of breath nor reported. Patient is on fall and aspiration precaution. IV site is on left hand g-24 and left AC G-22 saline lock that is patent and intact. Safety measures are in place, bed in lowest and locked position, side rails up x 2. Call light button and bedside table within reach, instructed to call for any assistance needed. Will continue plan of care.
[2020-03-22 20:00] VITALS: BP 135/48
--- NOTE | 2020-03-22 20:57 | Infectious Diseases Prog Note ---
Assessment/Plan Assessment: COVID19 Pneumonia(dx'ed 03/15) Acute hypoxic resp failure- sp NC, now on 2 Lit O2 -03/22 CXR: Cardiomegaly. Decreased and now minimal interstitial congestion -03/21 CXR: Suspect slightly increased interstitial congestion. Cardiomegaly -03/18 rapid COVID PCR + CXR: Possible early infiltrate right midlung. Low grade fever, SP No leukocytosis Probable UTI -u/a wbc 60-80, nit +, leuk +3; ucx >100k ESBL E.coli, 20-30k GNR Gram positive bacteremia -03/21 Bcx p -03/18 Bcx 1/ S. warneri, 07/04 S. hominis; 03/20 Bcx 1/ CONS CHF obesity HTN Dm2 CVA Plan: -Continue empiric IV Vancomcyin #6 - Dc Azithromycin # 6/5 -Meropenem #2 for ESBL UTI -Decadron #/ -Remdesivir #3/ -03/20 SP Cefepime #4 -03/18 SP Ceftriaxone x1 -f/u cx -Monitor CBC/CMP, temperatures -COVID19 isolation - f/u repeat Bcx Pt agrees with RDV That the patient/ has been: a) Given the Fact Sheet for Patients and Parents/Caregivers( Asled RN to provide it the facts sheet) (helps patient un derstand risks and benefits)b. Informed of alternatives to receiving remdesivir, and c. Informed that remdesivir is an unapproved drug that is authorized for use under EUA Subjective Allergies: Coded Allergies: No Known Allergies (Unverified , 09/17/12) *late entry* afebrile at 2l NC Objective Last 24 Hour Vital Signs Date Time Temp Pulse Resp B/P (MAP) Pulse Ox O2 Delivery O2 Flow Rate FiO2 03/22/20 20:08 135/48 03/22/20 20:07 50 135/48 03/22/20 17:26 150/69 03/22/20 17:26 60 150/69 03/22/20 16:00 98.1 60 18 150/69 (96) 98 03/22/20 16:00 51 03/22/20 15:31 145/68 03/22/20 13:02 147/62 03/22/20 12:00 98.5 53 18 147/62 (90) 98 03/22/20 12:00 48 03/22/20 09:34 46 161/61 03/22/20 09:17 161/61 03/22/20 08:11 Nasal Cannula 2.0 03/22/20 08:00 97.9 46 18 161/61 (94) 99 03/22/20 08:00 46 03/22/20 07:15 99 Nasal Cannula 2.0 28 03/22/20 04:00 97.9 51 18 157/61 (93) 99 03/22/20 04:00 41 03/22/20 03:59 172/68 03/22/20 00:00 97.7 60 20 168/74 (105) 100 03/22/20 00:00 44 03/21/20 22:38 99 Nasal Cannula 2.0 28 03/21/20 21:49 59 168/69 03/21/20 21:00 Nasal Cannula 2.0 Height (Feet): 5 Height (Inches): 5.00 Weight (Pounds): 225 GENERAL: The patient awake, responsive, no acute distress. HEENT: Head and neck examination, pupils are equal and reactive to light. Extraocular muscles intact. Neck was supple. No JVD. LUNGS: Good air entry. Decreased air in bases. HEART: S1, S2. Regular rhythm. No gallops. ABDOMEN: Soft, nontender, nondistended. Mildly obese. EXTREMITIES: No cyanosis, clubbing, or edema. Microbiology Date/Time Source Procedure Growth Status 03/20/20 08:30 Blood Blood Culture - Preliminary Staphylococcus Sp Coag Neg Resulted 03/20/20 08:20 Blood Blood Culture - Preliminary NO GROWTH AFTER 24 HOURS Resulted Laboratory Tests Test 03/22/20 05:30 03/22/20 10:57 03/22/20 12:40 03/22/20 16:54 White Blood Count 7.7 K/UL (4.8-10.8) Red Blood Count 4.08 M/UL (4.20-5.40) L Hemoglobin 11.2 G/DL (12.0-16.0) L Hematocrit 34.9 % (37.0-47.0) L Mean Corpuscular Volume 86 FL (80-99) Mean Corpuscular Hemoglobin 27.4 PG (27.0-31.0) Mean Corpuscular Hemoglobin Concent 32.0 G/DL (32.0-36.0) Red Cell Distribution Width 14.6 % (11.6-14.8) Platelet Count 357 K/UL (150-450) Mean Platelet Volume 5.3 FL (6.5-10.1) L Neutrophils (%) (Auto) 59.4 % (45.0-75.0) Lymphocytes (%) (Auto) 28.8 % (20.0-45.0) Monocytes (%) (Auto) 10.7 % (1.0-10.0) H Eosinophils (%) (Auto) 0.0 % (0.0-3.0) Basophils (%) (Auto) 1.1 % (0.0-2.0) Erythrocyte Sedimentation Rate 87 MM/HR (0-30) H Sodium Level 139 MMOL/L (136-145) Potassium Level 4.0 MMOL/L (3.5-5.1) Chloride Level 103 MMOL/L (98-107) Carbon Dioxide Level 25 MMOL/L (21-32) Anion Gap 11 mmol/L (5-15) Blood Urea Nitrogen 17 mg/dL (7-18) Creatinine 0.9 MG/DL (0.55-1.30) Estimat Glomerular Filtration Rate > 60 mL/min (>60) Glucose Level 167 MG/DL (74-106) H Calcium Level 9.1 MG/DL (8.5-10.1) Phosphorus Level 3.2 MG/DL (2.5-4.9) Magnesium Level 2.0 MG/DL (1.8-2.4) Total Bilirubin 0.3 MG/DL (0.2-1.0) Direct Bilirubin < 0.1 MG/DL (0.0-0.3) Aspartate Amino Transf (AST/SGOT) 34 U/L (15-37) Alanine Aminotransferase (ALT/SGPT) 66 U/L (12-78) Alkaline Phosphatase 106 U/L (46-116) C-Reactive Protein, Quantitative 1.7 mg/dL (0.00-0.90) H Total Protein 7.7 G/DL (6.4-8.2) Albumin 3.1 G/DL (3.4-5.0) L Globulin 4.6 g/dL Albumin/Globulin Ratio 0.7 (1.0-2.7) L POC Whole Blood Glucose Pending Pending Vancomycin Level Trough 19.9 ug/mL (5.0-12.0) H Test 03/22/20 20:12 POC Whole Blood Glucose Pending Current Medications Medications (Trade) Dose Ordered Sig/Nick Route PRN Reason Start Time Stop Time Status Last Admin Dose Admin Acetaminophen (Tylenol) 650 mg Q4H PRN ORAL FEVER 03/18/20 14:00 04/17/20 13:59 Albuterol/ Ipratropium (Albuterol/ Ipratropium) 3 ml Q4H PRN HHN Shortness of Breath 03/18/20 14:00 03/23/20 13:59 Allopurinol (Zyloprim) 200 mg DAILY ORAL 03/19/20 09:00 04/18/20 08:59 03/22/20 09:17 Amlodipine Besylate (Norvasc) 5 mg BID ORAL 03/21/20 18:00 04/18/20 08:59 03/22/20 17:26 Azithromycin (Zithromax) 500 mg DAILY ORAL 03/19/20 09:00 03/26/20 08:59 03/22/20 09:17 Carvedilol (Coreg) 6.25 mg EVERY 12 HOURS ORAL 03/22/20 09:00 04/17/20 20:59 Clonidine HCl (Catapres Tab) 0.1 mg Q4H PRN ORAL For High Blood Pressure 03/22/20 03:45 06/20/20 03:44 03/22/20 03:59 Dexamethasone Sodium Phosphate (Decadron 10mg/ ml Inj) 6 mg DAILY IV 03/23/20 09:00 03/28/20 08:59 Dextrose (Dextrose 50%) 25 ml Q30M PRN IV Hypoglycemia 03/18/20 14:00 06/16/20 13:59 Dextrose (Dextrose 50%) 50 ml Q30M PRN IV Hypoglycemia 03/18/20 14:00 06/16/20 13:59 Escitalopram Oxalate (Lexapro) 5 mg DAILY ORAL 03/19/20 09:00 04/18/20 08:59 03/22/20 09:17 Heparin Sodium (Porcine) (Heparin 5000 units/ml) 5,000 units EVERY 12 HOURS SUBQ 03/18/20 21:00 11/2/20 20:59 03/22/20 20:09 Hydralazine HCl (Apresoline) 25 mg TID ORAL 03/22/20 09:00 06/20/20 08:59 03/22/20 17:26 Hydralazine HCl (Apresoline) 50 mg EVERY 8 HOURS PRN ORAL For High Blood Pressure 03/22/20 00:30 06/20/20 00:29 Insulin Aspart (NovoLOG) BEFORE MEALS AND HS SUBQ 03/18/20 16:30 06/16/20 16:29 03/22/20 20:34 Lorazepam (Ativan 2mg/ml 1ml) 2 mg Q2H PRN IV For Anxiety 03/18/20 14:00 03/25/20 13:59 Losartan Potassium (Cozaar) 50 mg EVERY 12 HOURS ORAL 03/22/20 15:00 04/21/20 14:59 03/22/20 20:08 Meropenem 1 gm/ Sodium Chloride 55 ml @ 110 mls/hr Q12HR@0400,1600 IVPB 03/21/20 16:00 03/26/20 15:59 03/22/20 15:36 Ondansetron HCl (Zofran) 4 mg Q6H PRN IVP Nausea & Vomiting 03/18/20 14:00 04/17/20 13:59 Polyethylene Glycol (Miralax) 17 gm DAILYPRN PRN ORAL Constipation 03/18/20 14:00 04/17/20 13:59 03/22/20 17:26 Promethazine HCl/ Codeine (Phenergan with Codeine) 5 ml Q4H PRN ORAL For Cough 03/18/20 14:00 04/17/20 13:59 Remdesivir 100 mg/ Sodium Chloride 250 ml @ 250 mls/hr Q24H IV 03/21/20 14:00 03/24/20 14:59 03/22/20 14:18 Vancomycin HCl ([facility] pharmacy to dose) 1 ea DAILY PRN MISC . 03/18/20 14:15 04/17/20 14:14 Vancomycin HCl 750 mg/Sodium Chloride 250 ml @ 166.667 mls/hr Q8HR@0500,1300,2100 IVPB 03/20/20 13:00 03/25/20 12:59 03/22/20 20:05 Kathryn Hernandez M.D. Mar 22, 2020 20:57
[2020-03-23] VITALS: BP 155/57
[2020-03-23] MEDS: Meropenem 1gm/NS 55ml IVPB SCH ×4 (03:32→16:30)
[2020-03-23 04:00] VITALS: BP 151/52
[2020-03-23 05:15] LABS: EOSINOPHILS % (AUTO) 0.3 % (0.0-3.0); HEMOGLOBIN 10.7 G/DL (12.0-16.0); LYMPHOCYTES % (AUTO) 27.1 % (20.0-45.0); MEAN CORPUSCULAR VOLUME 86 FL (80-99); NEUTROPHILS % (AUTO) 57.6 % (45.0-75.0); PLATELET COUNT 204 K/UL (150-450); RED BLOOD COUNT 4.19 M/UL (4.20-5.40); RED CELL DISTRIBUTION WIDTH 14.4 % (11.6-14.8); WHITE BLOOD COUNT 10.3 K/UL (4.8-10.8)
[2020-03-23 05:51] LABS: ALANINE AMINOTRANSFERASE 68 U/L (12-78); ALBUMIN/GLOBULIN RATIO 0.7 (1.0-2.7); ALKALINE PHOSPHATASE 105 U/L (46-116); ASPARTATE AMINO TRANSFERASE 48 U/L (15-37); BILIRUBIN,DIRECT < 0.1 MG/DL (0.0-0.3); BILIRUBIN,TOTAL 0.3 MG/DL (0.2-1.0); BLOOD UREA NITROGEN 20 mg/dL (7-18); CALCIUM 8.9 MG/DL (8.5-10.1); CARBON DIOXIDE 24 MMOL/L (21-32); CREATININE 0.9 MG/DL (0.55-1.30)
[2020-03-23 06:02] LABS: CHLORIDE 102 MMOL/L (98-107); POTASSIUM 4.5 MMOL/L (3.5-5.1); SODIUM 136 MMOL/L (136-145)
[2020-03-23] MEDS: NovoLOG Insulin Flexpen SUBQ SCH ×4 (06:09→21:00)
--- NOTE | 2020-03-23 07:00 | Consultation ---
DATE OF CONSULTATION: 03/22/2020 CARDIOLOGY CONSULTATION NOTE: INCOMPLETE DICTATION CONSULTING PHYSICIAN: Giovanni Veloz MD HISTORY OF PRESENT ILLNESS: This is a 74-year-old female who is a resident of a convalescent facility. The patient was transferred from the [facility] facility where she has been taken care of by Dr. French for low oxygen saturation on room air of 90%, worsening cough, had COVID-19 swab on 03/15/2020 which returned positive on 03/17/2020 and the patient was subsequently transferred to [facility] because she had a chest x-ray showing bilateral infiltrates at the [facility] facility and a diagnosis of COVID-19 pneumonia. The patient apparently has been a poor historian and I did not know much about her medical history, according to the emergency physician whose data I have reviewed. I was consulted because the patient has some bradycardia and asked to see the patient in relation to the bradycardia. I really does not know much about her history. I was asked to address the patient's bradycardia for which I have reviewed the patient's chart. Because of the COVID infection, interview with the patient was deferred and all information was obtained from review of the chart at this time. In the emergency room, the patient denied any chest pain, abdominal pain or discomfort of any kind, fevers, headache, nausea or vomiting. PAST MEDICAL HISTORY: Positive for history of diabetes mellitus, hypertension, history of cerebrovascular accident, history of hyperlipidemia as well, history of left breast cancer, history of gastroenteritis, gastroesophageal reflux disease, stroke was in December of 2014, left posterior limb, stroke was documented in the patient's previous chart at [facility]. PAST SURGICAL HISTORY: Left breast lumpectomy, partial hysterectomy. SOCIAL HISTORY: Never smoked. No alcoholic beverages. At the present time, resides in a convalescent facility. ALLERGIES: There has been no reports of any allergies to medications here or through the patient's chart review at [facility]. REVIEW OF SYSTEMS: Really I did not obtain, again the patient was not physically interviewed. From the emergency room physician's data sheet, the patient was noted to be a poor historian. . Giovanni Veloz M.D. DR: Nicholas JOB#: [id number] CC:
--- NOTE | 2020-03-23 07:15 | NUR ---
NURSE NOTES: pt in bed awake and about to have breakfast. pt is not complaining of pain. 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 Bed in lowest position call light within reach. Will continue to monitor.
--- NOTE | 2020-03-23 07:40 | NUR ---
NURSE HAND-OFF REPORT: Important Events on Shift: Patient has been resting comfortably the whole night. Still on Sinus bradycardia Patient Status: Patient is asleep, in stable condition without complaints made at this time. Plan of care endorsed. Diet: CCHO (Medium) Pending Orders: none Pending Results/Labs: CBC, Trop-I, CMP, Direct bili and BTNP results Pending MD notification: Latest Vital Signs: Temperature 96.3 , Pulse 60 , B/P 151 /52 , Respiratory Rate 20 , O2 SAT 98 , Nasal Cannula, O2 Flow Rate 2.0 . Vital Sign Comment: stable EKG Rhythm: Sinus Bradycardia Rhythm change?: N Notified?: N -Dr Jose J BADILLO Response: No New Orders Received Latest Garcia Fall Score: 70 Fall Risk: High Risk Safety Measures: Call light Within Reach, Bed Alarm Zone 1, Side Rails Side Rails x2, Bed position Low and Locked. Fall Precautions: Yellow Socks Yellow Gown Door Sign Patient Fall Education Report given to PRITESH Gonzalez.
[2020-03-23] MEDS: Losartan 50mg tab ORAL SCH ×2 (09:00→22:02)
[2020-03-23] MEDS: Carvedilol 12.5mg tab ORAL SCH ×2 (09:00→22:03)
[2020-03-23 11:43] VITALS: BP 156/60
[2020-03-23] MEDS: HydrALAZINE 25mg tab ORAL SCH ×3 (11:45→17:34)
[2020-03-23] MEDS: Allopurinol 100mg Tab ORAL SCH (11:48)
[2020-03-23] MEDS: Heparin 5000 units/ml inj SUBQ SCH ×2 (11:49→22:02)
[2020-03-23] MEDS: dexAMETHasone 10mg/ml Inj IV SCH (11:50)
[2020-03-23] MEDS: Maintenance Dose:Remdesivir 100mg/NS 230ml x 4 Doses IV SCH ×2 (14:11)
--- NOTE | 2020-03-23 15:01 | NUR ---
CASE MANAGEMENT:REVIEW 03/23/20 SI: COVID PNEUMONIA 99.0 54 20 156/60 98% ON 2L/NC BUN+20 [id number] IS: IV REMDESIVIR Q24 (DAY #4/5) IV DECADRON QD IV VANCOMYCIN Q8HRS IV MEROPENEM Q12 : TELEMETRY STATUS DCP; FROM [facility]
[2020-03-23 16:00] VITALS: BP 153/66
--- NOTE | 2020-03-23 17:13 | Pulmonology Progress Note ---
Subjective ROS Limited/Unobtainable: Yes Constitutional: Reports: no symptoms HEENT: Repors: no symptoms Respiratory: Reports: no symptoms Allergies: Coded Allergies: No Known Allergies (Unverified , 09/17/12) Objective Last 24 Hour Vital Signs Date Time Temp Pulse Resp B/P (MAP) Pulse Ox O2 Delivery O2 Flow Rate FiO2 03/23/20 16:00 71 03/23/20 13:00 142/58 03/23/20 12:00 57 03/23/20 11:45 156/60 03/23/20 11:45 56 156/60 03/23/20 11:43 99.0 54 20 156/60 (92) 98 03/23/20 09:00 Nasal Cannula 2.0 03/23/20 09:00 156/60 03/23/20 08:00 54 03/23/20 04:00 42 03/23/20 04:00 96.3 60 20 151/52 (85) 98 03/23/20 00:00 43 03/23/20 00:00 96.1 51 18 155/57 (89) 99 03/22/20 21:00 Nasal Cannula 2.0 03/22/20 20:08 135/48 03/22/20 20:07 50 135/48 03/22/20 20:00 99.9 50 20 135/48 (77) 98 03/22/20 20:00 46 03/22/20 19:05 98 Nasal Cannula 2.0 28 03/22/20 17:26 150/69 03/22/20 17:26 60 150/69 Intake and Output 03/22/20 03/23/20 19:00 07:00 Intake Total 125 ml 200 ml Output Total 350 ml Balance 125 ml -150 ml Intake Oral 125 ml 200 ml Output Urine Total 350 ml # Voids 1 General Appearance: WD/WN HEENT: normocephalic, atraumatic Respiratory: chest wall non-tender, lungs clear Breasts: no masses Cardiovascular: normal peripheral pulses, normal rate Abdomen: normal bowel sounds Genitourinary: normal external genitalia Extremities: no cyanosis Skin: no lesions Neurologic: home stager II-XII grossly normal Microbiology Date/Time Source Procedure Growth Status 03/21/20 16:30 Blood Blood Culture - Preliminary NO GROWTH AFTER 24 HOURS Resulted 03/21/20 16:30 Blood Blood Culture - Preliminary NO GROWTH AFTER 24 HOURS Resulted Laboratory Tests 03/22/20 20:12: POC Whole Blood Glucose [Pending] 03/23/20 04:00: White Blood Count 10.3, Red Blood Count 4.19L, Hemoglobin 10.7L, Hematocrit 36.0L, Mean Corpuscular Volume 86, Mean Corpuscular Hemoglobin 25.6L, Mean Corpuscular Hemoglobin Concent 29.8L, Red Cell Distribution Width 14.4, Platelet Count 204, Mean Platelet Volume 5.2L, Neutrophils (%) (Auto) 57.6, Lymphocytes (%) (Auto) 27.1, Monocytes (%) (Auto) 12.0H, Eosinophils (%) (Auto) 0.3, Basophils (%) (Auto) 3.0H, Sodium Level 136, Potassium Level 4.5, Chloride Level 102, Carbon Dioxide Level 24, Blood Urea Nitrogen 20H, Creatinine 0.9, Estimat Glomerular Filtration Rate > 60, Glucose Level 160H, Calcium Level 8.9, Total Bilirubin 0.3, Direct Bilirubin < 0.1, Aspartate Amino Transf (AST/SGOT) 48H, Alanine Aminotransferase (ALT/SGPT) 68, Alkaline Phosphatase 105, Troponin I 0.010, Pro-B-Type Natriuretic Peptide 226H, Total Protein 7.3, Albumin 3.0L, Globulin 4.3, Albumin/Globulin Ratio 0.7L 03/23/20 05:24: POC Whole Blood Glucose 161H 03/23/20 11:48: POC Whole Blood Glucose 172H Current Medications Medications (Trade) Dose Ordered Sig/Nick Route PRN Reason Start Time Stop Time Status Last Admin Dose Admin Acetaminophen (Tylenol) 650 mg Q4H PRN ORAL FEVER 03/18/20 14:00 04/17/20 13:59 Allopurinol (Zyloprim) 200 mg DAILY ORAL 03/19/20 09:00 04/18/20 08:59 03/23/20 11:48 Amlodipine Besylate (Norvasc) 5 mg BID ORAL 03/21/20 18:00 04/18/20 08:59 03/23/20 11:45 Carvedilol (Coreg) 6.25 mg EVERY 12 HOURS ORAL 03/22/20 09:00 04/17/20 20:59 Clonidine HCl (Catapres Tab) 0.1 mg Q4H PRN ORAL For High Blood Pressure 03/22/20 03:45 06/20/20 03:44 03/22/20 03:59 Dexamethasone Sodium Phosphate (Decadron 10mg/ ml Inj) 6 mg DAILY IV 03/23/20 09:00 03/28/20 08:59 03/23/20 11:50 Dextrose (Dextrose 50%) 25 ml Q30M PRN IV Hypoglycemia 03/18/20 14:00 06/16/20 13:59 Dextrose (Dextrose 50%) 50 ml Q30M PRN IV Hypoglycemia 03/18/20 14:00 06/16/20 13:59 Escitalopram Oxalate (Lexapro) 5 mg DAILY ORAL 03/19/20 09:00 04/18/20 08:59 03/23/20 11:47 Heparin Sodium (Porcine) (Heparin 5000 units/ml) 5,000 units EVERY 12 HOURS SUBQ 03/18/20 21:00 05/02/20 20:59 03/23/20 11:49 Hydralazine HCl (Apresoline) 25 mg TID ORAL 03/22/20 09:00 06/20/20 08:59 03/23/20 13:00 Hydralazine HCl (Apresoline) 50 mg EVERY 8 HOURS PRN ORAL For High Blood Pressure 03/22/20 00:30 06/20/20 00:29 Insulin Aspart (NovoLOG) BEFORE MEALS AND HS SUBQ 03/18/20 16:30 06/16/20 16:29 03/23/20 12:58 Lorazepam (Ativan 2mg/ml 1ml) 2 mg Q2H PRN IV For Anxiety 03/18/20 14:00 03/25/20 13:59 Losartan Potassium (Cozaar) 50 mg EVERY 12 HOURS ORAL 03/22/20 15:00 04/21/20 14:59 03/23/20 09:00 Meropenem 1 gm/ Sodium Chloride 55 ml @ 110 mls/hr Q12HR@0400,1600 IVPB 03/21/20 16:00 03/26/20 15:59 03/23/20 03:32 Ondansetron HCl (Zofran) 4 mg Q6H PRN IVP Nausea & Vomiting 03/18/20 14:00 04/17/20 13:59 Polyethylene Glycol (Miralax) 17 gm DAILYPRN PRN ORAL Constipation 03/18/20 14:00 04/17/20 13:59 03/22/20 17:26 Promethazine HCl/ Codeine (Phenergan with Codeine) 5 ml Q4H PRN ORAL For Cough 03/18/20 14:00 04/17/20 13:59 Remdesivir 100 mg/ Sodium Chloride 250 ml @ 250 mls/hr Q24H IV 03/21/20 14:00 03/24/20 14:59 03/23/20 14:11 Vancomycin HCl (Vanco pharmacy to dose) 1 ea DAILY PRN MISC . 03/18/20 14:15 04/17/20 14:14 Vancomycin HCl 750 mg/Sodium Chloride 250 ml @ 166.667 mls/hr Q8HR@0500,1300,2100 IVPB 03/20/20 13:00 03/25/20 12:59 03/23/20 13:00 Assessment/Plan Problems: (1) 2019 novel coronavirus disease (COVID-19) (2) UTI (urinary tract infection) (3) Diabetes mellitus (4) History of hypertension (5) Gout (6) HX: breast cancer (7) Major depression, recurrent (8) Bacteremia Assessment/Plan BC are positive now afebrile check cxr, Decreased and now minimal interstitial congestion respiratory isolation check urine culture ID evaluation appreciated sliding scale diabetic diet monitor BP Calli Lxu MD Mar 23, 2020 17:13
--- NOTE | 2020-03-23 18:33 | Internal Med Progress Note ---
Subjective Date of Service: Mar 23, 2020 Physician Name BessBk Attending Physician Papa French MD Current Medications Medications (Trade) Dose Ordered Sig/Nick Route PRN Reason Start Time Stop Time Status Last Admin Dose Admin Acetaminophen (Tylenol) 650 mg Q4H PRN ORAL FEVER 03/18/20 14:00 04/17/20 13:59 Allopurinol (Zyloprim) 200 mg DAILY ORAL 03/19/20 09:00 04/18/20 08:59 03/23/20 11:48 Amlodipine Besylate (Norvasc) 5 mg BID ORAL 03/21/20 18:00 04/18/20 08:59 03/23/20 17:35 Carvedilol (Coreg) 6.25 mg EVERY 12 HOURS ORAL 03/22/20 09:00 04/17/20 20:59 Clonidine HCl (Catapres Tab) 0.1 mg Q4H PRN ORAL For High Blood Pressure 03/22/20 03:45 06/20/20 03:44 03/22/20 03:59 Dexamethasone Sodium Phosphate (Decadron 10mg/ ml Inj) 6 mg DAILY IV 03/23/20 09:00 03/28/20 08:59 03/23/20 11:50 Dextrose (Dextrose 50%) 25 ml Q30M PRN IV Hypoglycemia 03/18/20 14:00 06/16/20 13:59 Dextrose (Dextrose 50%) 50 ml Q30M PRN IV Hypoglycemia 03/18/20 14:00 06/16/20 13:59 Escitalopram Oxalate (Lexapro) 5 mg DAILY ORAL 03/19/20 09:00 04/18/20 08:59 03/23/20 11:47 Heparin Sodium (Porcine) (Heparin 5000 units/ml) 5,000 units EVERY 12 HOURS SUBQ 03/18/20 21:00 05/02/20 20:59 03/23/20 11:49 Hydralazine HCl (Apresoline) 25 mg TID ORAL 03/22/20 09:00 06/20/20 08:59 03/23/20 17:34 Hydralazine HCl (Apresoline) 50 mg EVERY 8 HOURS PRN ORAL For High Blood Pressure 03/22/20 00:30 06/20/20 00:29 Insulin Aspart (NovoLOG) BEFORE MEALS AND HS SUBQ 03/18/20 16:30 06/16/20 16:29 03/23/20 16:30 Lorazepam (Ativan 2mg/ml 1ml) 2 mg Q2H PRN IV For Anxiety 03/18/20 14:00 03/25/20 13:59 Losartan Potassium (Cozaar) 50 mg EVERY 12 HOURS ORAL 03/22/20 15:00 04/21/20 14:59 03/23/20 09:00 Meropenem 1 gm/ Sodium Chloride 55 ml @ 110 mls/hr Q12HR@0400,1600 IVPB 03/21/20 16:00 03/26/20 15:59 03/23/20 16:30 Ondansetron HCl (Zofran) 4 mg Q6H PRN IVP Nausea & Vomiting 03/18/20 14:00 04/17/20 13:59 Polyethylene Glycol (Miralax) 17 gm DAILYPRN PRN ORAL Constipation 03/18/20 14:00 04/17/20 13:59 03/22/20 17:26 Promethazine HCl/ Codeine (Phenergan with Codeine) 5 ml Q4H PRN ORAL For Cough 03/18/20 14:00 04/17/20 13:59 Remdesivir 100 mg/ Sodium Chloride 250 ml @ 250 mls/hr Q24H IV 03/21/20 14:00 03/24/20 14:59 03/23/20 14:11 Vancomycin HCl (Vanco pharmacy to dose) 1 ea DAILY PRN MISC . 03/18/20 14:15 04/17/20 14:14 Vancomycin HCl 750 mg/Sodium Chloride 250 ml @ 166.667 mls/hr Q8HR@0500,1300,2100 IVPB 03/20/20 13:00 03/25/20 12:59 03/23/20 13:00 Allergies: Coded Allergies: No Known Allergies (Unverified , 09/17/12) ROS Limited/Unobtainable: Yes Subjective 74 YO F admitted with fever. Now COVID 19 positive and pneumonia. Cover for Int Ambrocio-Dr French Objective Last Vital Signs Date Time Temp Pulse Resp B/P (MAP) Pulse Ox O2 Delivery O2 Flow Rate FiO2 03/23/20 17:35 74 153/66 03/23/20 11:43 99.0 20 98 03/23/20 09:00 Nasal Cannula 2.0 03/22/20 19:05 28 Laboratory Tests Test 03/22/20 20:12 03/23/20 04:00 03/23/20 05:24 03/23/20 11:48 POC Whole Blood Glucose Pending 161 MG/DL (74-106) H 172 MG/DL (74-106) H White Blood Count 10.3 K/UL (4.8-10.8) Red Blood Count 4.19 M/UL (4.20-5.40) L Hemoglobin 10.7 G/DL (12.0-16.0) L Hematocrit 36.0 % (37.0-47.0) L Mean Corpuscular Volume 86 FL (80-99) Mean Corpuscular Hemoglobin 25.6 PG (27.0-31.0) L Mean Corpuscular Hemoglobin Concent 29.8 G/DL (32.0-36.0) L Red Cell Distribution Width 14.4 % (11.6-14.8) Platelet Count 204 K/UL (150-450) Mean Platelet Volume 5.2 FL (6.5-10.1) L Neutrophils (%) (Auto) 57.6 % (45.0-75.0) Lymphocytes (%) (Auto) 27.1 % (20.0-45.0) Monocytes (%) (Auto) 12.0 % (1.0-10.0) H Eosinophils (%) (Auto) 0.3 % (0.0-3.0) Basophils (%) (Auto) 3.0 % (0.0-2.0) H Sodium Level 136 MMOL/L (136-145) Potassium Level 4.5 MMOL/L (3.5-5.1) Chloride Level 102 MMOL/L (98-107) Carbon Dioxide Level 24 MMOL/L (21-32) Blood Urea Nitrogen 20 mg/dL (7-18) H Creatinine 0.9 MG/DL (0.55-1.30) Estimat Glomerular Filtration Rate > 60 mL/min (>60) Glucose Level 160 MG/DL (74-106) H Calcium Level 8.9 MG/DL (8.5-10.1) Total Bilirubin 0.3 MG/DL (0.2-1.0) Direct Bilirubin < 0.1 MG/DL (0.0-0.3) Aspartate Amino Transf (AST/SGOT) 48 U/L (15-37) H Alanine Aminotransferase (ALT/SGPT) 68 U/L (12-78) Alkaline Phosphatase 105 U/L (46-116) Troponin I 0.010 ng/mL (0.000-0.056) Pro-B-Type Natriuretic Peptide 226 pg/mL (0-125) H Total Protein 7.3 G/DL (6.4-8.2) Albumin 3.0 G/DL (3.4-5.0) L Globulin 4.3 g/dL Albumin/Globulin Ratio 0.7 (1.0-2.7) L Test 03/23/20 17:12 POC Whole Blood Glucose Pending Microbiology Date/Time Source Procedure Growth Status 03/21/20 16:30 Blood Blood Culture - Preliminary NO GROWTH AFTER 24 HOURS Resulted 03/21/20 16:30 Blood Blood Culture - Preliminary NO GROWTH AFTER 24 HOURS Resulted Intake and Output 03/22/20 03/23/20 19:00 07:00 Intake Total 125 ml 200 ml Output Total 350 ml Balance 125 ml -150 ml Intake Oral 125 ml 200 ml Output Urine Total 350 ml # Voids 1 Objective PHYSICAL EXAMINATION: GENERAL: The patient awake, responsive, no acute distress. HEENT: Head and neck examination, pupils are equal and reactive to light. Extraocular muscles intact. Neck was supple. No JVD. LUNGS: Good air entry. Decreased air in bases. HEART: S1, S2. Regular rhythm. No gallops. ABDOMEN: Soft, nontender, nondistended. Mildly obese. EXTREMITIES: No cyanosis, clubbing, or edema. NEUROLOGIC: Cranial nerves II through XII grossly intact. The patient moving all extremities. RECTAL: Refused and deferred. GENITOURINARY: Refused and deferred. PSYCHIATRIC: Mood and affect is intact. Assessment/Plan Assessment/Plan ASSESSMENT: 1. COVID-19 pneumonia. 2. Acute hypoxemic respiratory failure. 3. Low-grade fever, possible due to the pneumonia. 4. Possible urinary tract infection. 5. Congestive heart failure, chronic. 6. Obesity. 7. Hypertension. 8. Diabetes type 2. 9. History of CVA. 10. UTI=ESBL E. Coli PLAN: 1. Admit the patient to monitored unit. 2. antibiotic=vancomycin, meropenem, and azithromycin. S/P cefepime 3. Continue Decadron IV. 4. Continue Remdesivir 5. DVT prophylaxis=heparin subcutaneous. 6. Code status is Full Code. 7. Dr. Calli Lux=Pulmonary Critical Care 8. Dr. Hernandez = Infectious Disease Bk Kellogg MD Mar 23, 2020 18:33
--- NOTE | 2020-03-23 19:30 | NUR ---
NURSE NOTES: Report received from Lisa JONAS. Patient is COVID positive. Isolation precautions instilled. Patient is on room air. No SOB or distress at this time. Call light within reach. Bed at lowest position locked with side rails up. fitness coach intact. Will continue with plan of care.
--- NOTE | 2020-03-23 19:35 | Cardiology Progress Note ---
Assessment/Plan Assessment/Plan 1. Acute COVID-19 infection. 2. COVID-19 pneumonia. 3. History of cardiomyopathy reportedly. 4. Diabetes mellitus. 5. Hypertension. 6. Hyperlipidemia. 7. Obesity. tele reviewed personally sinus jay jay earlier now sinus no sig pauses noted trop neg pro bnp normal cxr improved bp elevated on max dose of cozaar is on hydralazine and low dose coreg will add low dsoe norvasc diuretic prn Subjective Subjective deferred due to acute covid infection per rn Objective Last 24 Hour Vital Signs Date Time Temp Pulse Resp B/P (MAP) Pulse Ox O2 Delivery O2 Flow Rate FiO2 03/23/20 17:35 74 153/66 03/23/20 17:34 153/66 03/23/20 16:00 71 03/23/20 13:00 142/58 03/23/20 12:00 57 03/23/20 11:45 156/60 03/23/20 11:45 56 156/60 03/23/20 11:43 99.0 54 20 156/60 (92) 98 03/23/20 09:00 Nasal Cannula 2.0 03/23/20 09:00 156/60 03/23/20 08:00 54 03/23/20 04:00 42 03/23/20 04:00 96.3 60 20 151/52 (85) 98 03/23/20 00:00 43 03/23/20 00:00 96.1 51 18 155/57 (89) 99 03/22/20 21:00 Nasal Cannula 2.0 03/22/20 20:08 135/48 03/22/20 20:07 50 135/48 03/22/20 20:00 99.9 50 20 135/48 (77) 98 03/22/20 20:00 46 Intake and Output 03/22/20 03/23/20 19:00 07:00 Intake Total 125 ml 200 ml Output Total 350 ml Balance 125 ml -150 ml Intake Oral 125 ml 200 ml Output Urine Total 350 ml # Voids 1 Laboratory Tests Test 03/22/20 20:12 03/23/20 04:00 03/23/20 05:24 03/23/20 11:48 POC Whole Blood Glucose Pending 161 MG/DL (74-106) H 172 MG/DL (74-106) H White Blood Count 10.3 K/UL (4.8-10.8) Red Blood Count 4.19 M/UL (4.20-5.40) L Hemoglobin 10.7 G/DL (12.0-16.0) L Hematocrit 36.0 % (37.0-47.0) L Mean Corpuscular Volume 86 FL (80-99) Mean Corpuscular Hemoglobin 25.6 PG (27.0-31.0) L Mean Corpuscular Hemoglobin Concent 29.8 G/DL (32.0-36.0) L Red Cell Distribution Width 14.4 % (11.6-14.8) Platelet Count 204 K/UL (150-450) Mean Platelet Volume 5.2 FL (6.5-10.1) L Neutrophils (%) (Auto) 57.6 % (45.0-75.0) Lymphocytes (%) (Auto) 27.1 % (20.0-45.0) Monocytes (%) (Auto) 12.0 % (1.0-10.0) H Eosinophils (%) (Auto) 0.3 % (0.0-3.0) Basophils (%) (Auto) 3.0 % (0.0-2.0) H Sodium Level 136 MMOL/L (136-145) Potassium Level 4.5 MMOL/L (3.5-5.1) Chloride Level 102 MMOL/L (98-107) Carbon Dioxide Level 24 MMOL/L (21-32) Blood Urea Nitrogen 20 mg/dL (7-18) H Creatinine 0.9 MG/DL (0.55-1.30) Estimat Glomerular Filtration Rate > 60 mL/min (>60) Glucose Level 160 MG/DL (74-106) H Calcium Level 8.9 MG/DL (8.5-10.1) Total Bilirubin 0.3 MG/DL (0.2-1.0) Direct Bilirubin < 0.1 MG/DL (0.0-0.3) Aspartate Amino Transf (AST/SGOT) 48 U/L (15-37) H Alanine Aminotransferase (ALT/SGPT) 68 U/L (12-78) Alkaline Phosphatase 105 U/L (46-116) Troponin I 0.010 ng/mL (0.000-0.056) Pro-B-Type Natriuretic Peptide 226 pg/mL (0-125) H Total Protein 7.3 G/DL (6.4-8.2) Albumin 3.0 G/DL (3.4-5.0) L Globulin 4.3 g/dL Albumin/Globulin Ratio 0.7 (1.0-2.7) L Test 03/23/20 17:12 POC Whole Blood Glucose Pending Microbiology Date/Time Source Procedure Growth Status 03/21/20 16:30 Blood Blood Culture - Preliminary NO GROWTH AFTER 24 HOURS Resulted 03/21/20 16:30 Blood Blood Culture - Preliminary NO GROWTH AFTER 24 HOURS Resulted Objective deferred due to active covid infection per dr feng LUNGS: Good air entry. Decreased air in bases. HEART: S1, S2. Regular rhythm. No gallops. ABDOMEN: Soft, nontender, nondistended. Mildly obese. EXTREMITIES: No cyanosis, clubbing, or edema Giovanni Veloz MD Mar 23, 2020 19:35
--- NOTE | 2020-03-23 19:50 | NUR ---
NURSE HAND-OFF REPORT: Important Events on Shift:pt is doing fine and is more alert, pt needs to be encourage to eat BP meds pls read comments when given specially if pt has low HR Patient Status: full code Diet: ccho Pending Orders: stool and sputum sample pending because she is covid positive Pending Results/Labs: Pending MD notification: Latest Vital Signs: Temperature 100.4 , Pulse 74 , B/P 153 /66 , Respiratory Rate 20 , O2 SAT 98 , Nasal Cannula, O2 Flow Rate 2.0 . Vital Sign Comment: EKG Rhythm: Sinus Bradycardia Rhythm change?: N Notified?: N -Dr Jose J BADILLO Response: No New Orders Received Latest Garcia Fall Score: 70 Fall Risk: High Risk Safety Measures: Call light Within Reach, Bed Alarm Zone 1, Side Rails Side Rails x2, Bed position Low and Locked. Fall Precautions: Y Yellow Socks y Yellow Gown y Door Sign Patient Fall Education Report given to Keke/RN.
[2020-03-23 20:00] VITALS: BP 132/48
--- NOTE | 2020-03-23 20:12 | Infectious Diseases Prog Note ---
Assessment/Plan Assessment: COVID19 Pneumonia(dx'ed 03/15) Acute hypoxic resp failure- sp NC, now on 2 Lit O2 -03/22 CXR: Cardiomegaly. Decreased and now minimal interstitial congestion -03/21 CXR: Suspect slightly increased interstitial congestion. Cardiomegaly -03/18 rapid COVID PCR + CXR: Possible early infiltrate right midlung. Low grade fever, recurrent No leukocytosis Probable UTI -u/a wbc 60-80, nit +, leuk +3; ucx >100k ESBL E.coli, 20-30k GNR Gram positive bacteremia -03/21 Bcx p -03/18 Bcx 1/4 S. warneri, 07/04 S. hominis; 03/20 Bcx 1/4 S.auricularis; 03/21 Bcx NTD CHF obesity HTN Dm2 CVA Plan: -Continue empiric IV Vancomcyin #7 -Meropenem #3/ for ESBL UTI -Decadron #/ -Remdesivir #4/5 -03/22 SP Azithromycin #6 -03/20 SP Cefepime #4 -03/18 SP Ceftriaxone x1 -f/u cx -Monitor CBC/CMP, temperatures -COVID19 isolation - f/u repeat Bcx Pt agrees with RDV That the patient/ has been: a) Given the Fact Sheet for Patients and Parents/Caregivers( Asled RN to provide it the facts sheet) (helps patient understand risks and benefits)b. Informed of alternatives to receiving remdesivir, and c. Informed that remdesivir is an unapproved drug that is authorized for use under EUA Subjective Allergies: Coded Allergies: No Known Allergies (Unverified , 09/17/12) *late entry* afebrile at 2l NC Objective Last 24 Hour Vital Signs Date Time Temp Pulse Resp B/P (MAP) Pulse Ox O2 Delivery O2 Flow Rate FiO2 03/23/20 17:35 74 153/66 03/23/20 17:34 153/66 03/23/20 16:00 71 03/23/20 16:00 100.4 74 20 153/66 (95) 98 03/23/20 13:00 142/58 03/23/20 12:00 57 03/23/20 11:45 156/60 03/23/20 11:45 56 156/60 03/23/20 11:43 99.0 54 20 156/60 (92) 98 03/23/20 09:00 Nasal Cannula 2.0 03/23/20 09:00 156/60 03/23/20 08:00 54 03/23/20 04:00 42 03/23/20 04:00 96.3 60 20 151/52 (85) 98 03/23/20 00:00 43 03/23/20 00:00 96.1 51 18 155/57 (89) 99 03/22/20 21:00 Nasal Cannula 2.0 Height (Feet): 5 Height (Inches): 5.00 Weight (Pounds): 225 GENERAL: The patient awake, responsive, no acute distress. HEENT: Head and neck examination, pupils are equal and reactive to light. Extraocular muscles intact. Neck was supple. No JVD. LUNGS: Good air entry. Decreased air in bases. HEART: S1, S2. Regular rhythm. No gallops. ABDOMEN: Soft, nontender, nondistended. Mildly obese. EXTREMITIES: No cyanosis, clubbing, or edema. Microbiology Date/Time Source Procedure Growth Status 03/21/20 16:30 Blood Blood Culture - Preliminary NO GROWTH AFTER 24 HOURS Resulted 03/21/20 16:30 Blood Blood Culture - Preliminary NO GROWTH AFTER 24 HOURS Resulted Laboratory Tests Test 03/22/20 20:12 03/23/20 04:00 03/23/20 05:24 03/23/20 11:48 POC Whole Blood Glucose Pending 161 MG/DL (74-106) H 172 MG/DL (74-106) H White Blood Count 10.3 K/UL (4.8-10.8) Red Blood Count 4.19 M/UL (4.20-5.40) L Hemoglobin 10.7 G/DL (12.0-16.0) L Hematocrit 36.0 % (37.0-47.0) L Mean Corpuscular Volume 86 FL (80-99) Mean Corpuscular Hemoglobin 25.6 PG (27.0-31.0) L Mean Corpuscular Hemoglobin Concent 29.8 G/DL (32.0-36.0) L Red Cell Distribution Width 14.4 % (11.6-14.8) Platelet Count 204 K/UL (150-450) Mean Platelet Volume 5.2 FL (6.5-10.1) L Neutrophils (%) (Auto) 57.6 % (45.0-75.0) Lymphocytes (%) (Auto) 27.1 % (20.0-45.0) Monocytes (%) (Auto) 12.0 % (1.0-10.0) H Eosinophils (%) (Auto) 0.3 % (0.0-3.0) Basophils (%) (Auto) 3.0 % (0.0-2.0) H Sodium Level 136 MMOL/L (136-145) Potassium Level 4.5 MMOL/L (3.5-5.1) Chloride Level 102 MMOL/L (98-107) Carbon Dioxide Level 24 MMOL/L (21-32) Blood Urea Nitrogen 20 mg/dL (7-18) H Creatinine 0.9 MG/DL (0.55-1.30) Estimat Glomerular Filtration Rate > 60 mL/min (>60) Glucose Level 160 MG/DL (74-106) H Calcium Level 8.9 MG/DL (8.5-10.1) Total Bilirubin 0.3 MG/DL (0.2-1.0) Direct Bilirubin < 0.1 MG/DL (0.0-0.3) Aspartate Amino Transf (AST/SGOT) 48 U/L (15-37) H Alanine Aminotransferase (ALT/SGPT) 68 U/L (12-78) Alkaline Phosphatase 105 U/L (46-116) Troponin I 0.010 ng/mL (0.000-0.056) Pro-B-Type Natriuretic Peptide 226 pg/mL (0-125) H Total Protein 7.3 G/DL (6.4-8.2) Albumin 3.0 G/DL (3.4-5.0) L Globulin 4.3 g/dL Albumin/Globulin Ratio 0.7 (1.0-2.7) L Test 03/23/20 17:12 POC Whole Blood Glucose Pending Current Medications Medications (Trade) Dose Ordered Sig/Nick Route PRN Reason Start Time Stop Time Status Last Admin Dose Admin Acetaminophen (Tylenol) 650 mg Q4H PRN ORAL FEVER 03/18/20 14:00 04/17/20 13:59 Allopurinol (Zyloprim) 200 mg DAILY ORAL 03/19/20 09:00 04/18/20 08:59 03/23/20 11:48 Amlodipine Besylate (Norvasc) 2.5 mg DAILY ORAL 03/23/20 19:45 04/22/20 19:44 Carvedilol (Coreg) 6.25 mg EVERY 12 HOURS ORAL 03/22/20 09:00 04/17/20 20:59 Clonidine HCl (Catapres Tab) 0.1 mg Q4H PRN ORAL For High Blood Pressure 03/22/20 03:45 06/20/20 03:44 03/22/20 03:59 Dexamethasone Sodium Phosphate (Decadron 10mg/ ml Inj) 6 mg DAILY IV 03/23/20 09:00 03/28/20 08:59 03/23/20 11:50 Dextrose (Dextrose 50%) 25 ml Q30M PRN IV Hypoglycemia 03/18/20 14:00 06/16/20 13:59 Dextrose (Dextrose 50%) 50 ml Q30M PRN IV Hypoglycemia 03/18/20 14:00 06/16/20 13:59 Escitalopram Oxalate (Lexapro) 5 mg DAILY ORAL 03/19/20 09:00 04/18/20 08:59 03/23/20 11:47 Heparin Sodium (Porcine) (Heparin 5000 units/ml) 5,000 units EVERY 12 HOURS SUBQ 03/18/20 21:00 05/02/20 20:59 03/23/20 11:49 Hydralazine HCl (Apresoline) 25 mg TID ORAL 03/22/20 09:00 06/20/20 08:59 03/23/20 17:34 Hydralazine HCl (Apresoline) 50 mg EVERY 8 HOURS PRN ORAL For High Blood Pressure 03/22/20 00:30 06/20/20 00:29 Insulin Aspart (NovoLOG) BEFORE MEALS AND HS SUBQ 03/18/20 16:30 06/16/20 16:29 03/23/20 16:30 Lorazepam (Ativan 2mg/ml 1ml) 2 mg Q2H PRN IV For Anxiety 03/18/20 14:00 03/25/20 13:59 Losartan Potassium (Cozaar) 50 mg EVERY 12 HOURS ORAL 03/22/20 15:00 04/21/20 14:59 03/23/20 09:00 Meropenem 1 gm/ Sodium Chloride 55 ml @ 110 mls/hr Q12HR@0400,1600 IVPB 03/21/20 16:00 03/26/20 15:59 03/23/20 16:30 Ondansetron HCl (Zofran) 4 mg Q6H PRN IVP Nausea & Vomiting 03/18/20 14:00 04/17/20 13:59 Polyethylene Glycol (Miralax) 17 gm DAILYPRN PRN ORAL Constipation 03/18/20 14:00 04/17/20 13:59 03/22/20 17:26 Promethazine HCl/ Codeine (Phenergan with Codeine) 5 ml Q4H PRN ORAL For Cough 03/18/20 14:00 04/17/20 13:59 Remdesivir 100 mg/ Sodium Chloride 250 ml @ 250 mls/hr Q24H IV 03/21/20 14:00 03/24/20 14:59 03/23/20 14:11 Vancomycin HCl (Vanco pharmacy to dose) 1 ea DAILY PRN MISC . 03/18/20 14:15 04/17/20 14:14 Vancomycin HCl 750 mg/Sodium Chloride 250 ml @ 166.667 mls/hr Q8HR@0500,1300,2100 IVPB 03/20/20 13:00 03/25/20 12:59 03/23/20 13:00 Kathryn Hernandez M.D. Mar 23, 2020 20:12
--- NOTE | 2020-03-23 22:00 | NUR ---
NURSE NOTES: Vano level elevated. Spoke with Perfecto at pharmacy and laboratory. Pharmacy to change dose and time of next Vanco dose.
[2020-03-23] MEDS ORDERED: NS 275ml ONE (22:32)
[2020-03-23] MEDS ORDERED: Tubing IV Secondary IV ONE (22:32)
[2020-03-24] VITALS: BP 145/67
[2020-03-24 04:00] VITALS: BP 116/43
[2020-03-24] MEDS: Meropenem 1gm/NS 55ml IVPB SCH ×4 (04:09→16:00)
[2020-03-24] MEDS: NovoLOG Insulin Flexpen SUBQ SCH ×4 (06:38→20:48)
--- NOTE | 2020-03-24 07:15 | NUR ---
NURSE HAND-OFF REPORT: Important Events on Shift:[Unable to collect stool and sputum] Patient Status: [Stable alert and oriented] Diet: [CCHO Medium] Pending Orders: [] Pending Results/Labs:[] Pending MD notification:[] Latest Vital Signs: Temperature 97.7 , Pulse 46 , B/P 116 /43 , Respiratory Rate 21 , O2 SAT 96 , Nasal Cannula, O2 Flow Rate 2.0 . Vital Sign Comment: [] EKG Rhythm: Sinus Bradycardia Rhythm change?: N Notified?: N -Dr Jose J BADILLO Response: No New Orders Received Latest Garcia Fall Score: 70 Fall Risk: High Risk Safety Measures: Call light Within Reach, Bed Alarm Zone 1, Side Rails Side Rails x2, Bed position Low and Locked. Fall Precautions: Yellow Socks Yellow Gown Door Sign Patient Fall Education Report given to [PRITESH Gonzalez].
[2020-03-24 07:33] LABS: BASOPHILS % (AUTO) 1.1 % (0.0-2.0); EOSINOPHILS % (AUTO) 0.2 % (0.0-3.0); HEMATOCRIT 35.4 % (37.0-47.0); HEMOGLOBIN 11.4 G/DL (12.0-16.0); LYMPHOCYTES % (AUTO) 23.5 % (20.0-45.0); MEAN CORPUSCULAR VOLUME 86 FL (80-99); MONOCYTES % (AUTO) 10.1 % (1.0-10.0); NEUTROPHILS % (AUTO) 65.2 % (45.0-75.0); PLATELET COUNT 388 K/UL (150-450); RED BLOOD COUNT 4.12 M/UL (4.20-5.40); RED CELL DISTRIBUTION WIDTH 14.5 % (11.6-14.8); WHITE BLOOD COUNT 9.6 K/UL (4.8-10.8)
[2020-03-24 08:00] VITALS: BP 149/52
[2020-03-24 08:07] LABS: ALANINE AMINOTRANSFERASE 68 U/L (12-78); ALBUMIN 3.2 G/DL (3.4-5.0); ALBUMIN/GLOBULIN RATIO 0.9 (1.0-2.7); ALKALINE PHOSPHATASE 112 U/L (46-116); ANION GAP 10 mmol/L (5-15); ASPARTATE AMINO TRANSFERASE 30 U/L (15-37); BILIRUBIN,DIRECT < 0.1 MG/DL (0.0-0.3); BILIRUBIN,TOTAL 0.4 MG/DL (0.2-1.0); BLOOD UREA NITROGEN 20 mg/dL (7-18); CALCIUM 9.4 MG/DL (8.5-10.1); CARBON DIOXIDE 26 MMOL/L (21-32); CHLORIDE 101 MMOL/L (98-107); CREATININE 1.1 MG/DL (0.55-1.30); POTASSIUM 3.8 MMOL/L (3.5-5.1); SODIUM 137 MMOL/L (136-145)
--- NOTE | 2020-03-24 08:50 | NUR ---
NURSE NOTES: pt in bed having breakfast AOx2. Pt is on 2L oxygen, Pt on electronic device monitor no signs of cardiac or respiratory distress at this time. Bed locked and in lowest position. call light and ph within reach. Pt has yellow socks. Will continue to monitor pt.
--- NOTE | 2020-03-24 09:51 | Infectious Diseases Prog Note ---
Assessment/Plan Assessment: COVID19 Pneumonia(dx'ed 03/15) Acute hypoxic resp failure- sp NC, now on 2 Lit O2 -03/22 CXR: Cardiomegaly. Decreased and now minimal interstitial congestion -03/21 CXR: Suspect slightly increased interstitial congestion. Cardiomegaly -03/18 rapid COVID PCR + CXR: Possible early infiltrate right midlung. Low grade fever, recurrent No leukocytosis Probable UTI -u/a wbc 60-80, nit +, leuk +3; ucx >100k ESBL E.coli, 20-30k GNR Gram positive bacteremia - Likely contaminants -03/21 Bcx p -03/18 Bcx 1/4 S. warneri, 07/04 S. hominis; 03/20 Bcx 1/4 S.auricularis; 03/21 Bcx NTD CHF obesity HTN Dm2 CVA Plan: -Continue empiric IV Vancomcyin #8 -Meropenem #/ for ESBL UTI -Decadron #/ -Remdesivir #5/ -03/22 SP Azithromycin #6 -03/20 SP Cefepime #4 -03/18 SP Ceftriaxone x1 -f/u cx -Monitor CBC/CMP, temperatures -COVID19 isolation - f/u repeat Bcx Pt agrees with RDV That the patient/ has been: a) Given the Fact Sheet for Patients and Parents/Caregivers( Asled RN to provide it the facts sheet) (helps patient understand risks and benefits)b. Informed of alternatives to receiving remdesivir, and c. Informed that remdesivir is an unapproved drug that is authorized for use under EUA Subjective Allergies: Coded Allergies: No Known Allergies (Unverified , 09/17/12) Afebrile on 2L NC and no leukocytosis is present CHAMP Objective Last 24 Hour Vital Signs Date Time Temp Pulse Resp B/P (MAP) Pulse Ox O2 Delivery O2 Flow Rate FiO2 03/24/20 04:00 46 03/24/20 04:00 97.7 70 21 116/43 (67) 96 03/24/20 00:00 47 03/24/20 00:00 99.4 75 21 145/67 (93) 98 03/23/20 22:08 73 132/55 03/23/20 22:03 73 132/55 03/23/20 22:02 132/55 03/23/20 21:00 Nasal Cannula 2.0 03/23/20 20:23 97 Nasal Cannula 2.0 28 03/23/20 20:00 64 03/23/20 20:00 98.4 73 22 132/48 (76) 94 03/23/20 17:35 74 153/66 03/23/20 17:34 153/66 03/23/20 16:00 71 03/23/20 16:00 100.4 74 20 153/66 (95) 98 03/23/20 13:00 142/58 03/23/20 12:00 57 03/23/20 11:45 156/60 03/23/20 11:45 56 156/60 03/23/20 11:43 99.0 54 20 156/60 (92) 98 Height (Feet): 5 Height (Inches): 5.00 Weight (Pounds): 225 GENERAL: NAD on 2L nC HEENT: NCAT, MMM, EOMI LUNGS: Equal rise and fall of chest B/L no accessory muscle use ABDOMEN: Soft, nondistended EXTREMITIES: No cyanosis, clubbing, or edema. Microbiology Date/Time Source Procedure Growth Status 03/21/20 16:30 Blood Blood Culture - Preliminary NO GROWTH AFTER 48 HOURS Resulted 03/21/20 16:30 Blood Blood Culture - Preliminary NO GROWTH AFTER 48 HOURS Resulted Laboratory Tests Test 03/23/20 11:48 03/23/20 17:12 03/23/20 20:40 03/23/20 22:20 POC Whole Blood Glucose 172 MG/DL (74-106) H Pending Pending Vancomycin Level Trough 22.8 ug/mL (5.0-12.0) H Test 03/24/20 06:17 03/24/20 06:34 White Blood Count 9.6 K/UL (4.8-10.8) Red Blood Count 4.12 M/UL (4.20-5.40) L Hemoglobin 11.4 G/DL (12.0-16.0) L Hematocrit 35.4 % (37.0-47.0) L Mean Corpuscular Volume 86 FL (80-99) Mean Corpuscular Hemoglobin 27.7 PG (27.0-31.0) Mean Corpuscular Hemoglobin Concent 32.2 G/DL (32.0-36.0) Red Cell Distribution Width 14.5 % (11.6-14.8) Platelet Count 388 K/UL (150-450) # Mean Platelet Volume 5.8 FL (6.5-10.1) L Neutrophils (%) (Auto) 65.2 % (45.0-75.0) Lymphocytes (%) (Auto) 23.5 % (20.0-45.0) Monocytes (%) (Auto) 10.1 % (1.0-10.0) H Eosinophils (%) (Auto) 0.2 % (0.0-3.0) Basophils (%) (Auto) 1.1 % (0.0-2.0) Sodium Level 137 MMOL/L (136-145) Potassium Level 3.8 MMOL/L (3.5-5.1) Chloride Level 101 MMOL/L (98-107) Carbon Dioxide Level 26 MMOL/L (21-32) Anion Gap 10 mmol/L (5-15) Blood Urea Nitrogen 20 mg/dL (7-18) H Creatinine 1.1 MG/DL (0.55-1.30) Estimat Glomerular Filtration Rate 59.0 mL/min (>60) Glucose Level 196 MG/DL (74-106) H Calcium Level 9.4 MG/DL (8.5-10.1) Total Bilirubin 0.4 MG/DL (0.2-1.0) Direct Bilirubin < 0.1 MG/DL (0.0-0.3) Aspartate Amino Transf (AST/SGOT) 30 U/L (15-37) Alanine Aminotransferase (ALT/SGPT) 68 U/L (12-78) Alkaline Phosphatase 112 U/L (46-116) Total Protein 6.9 G/DL (6.4-8.2) Albumin 3.2 G/DL (3.4-5.0) L Globulin 3.7 g/dL Albumin/Globulin Ratio 0.9 (1.0-2.7) L POC Whole Blood Glucose Pending Current Medications Medications (Trade) Dose Ordered Sig/Nick Route PRN Reason Start Time Stop Time Status Last Admin Dose Admin Acetaminophen (Tylenol) 650 mg Q4H PRN ORAL FEVER 03/18/20 14:00 04/17/20 13:59 Allopurinol (Zyloprim) 200 mg DAILY ORAL 03/19/20 09:00 04/18/20 08:59 03/23/20 11:48 Amlodipine Besylate (Norvasc) 2.5 mg DAILY ORAL 03/23/20 19:45 04/22/20 19:44 03/23/20 22:08 Carvedilol (Coreg) 6.25 mg EVERY 12 HOURS ORAL 03/22/20 09:00 04/17/20 20:59 03/23/20 22:03 Clonidine HCl (Catapres Tab) 0.1 mg Q4H PRN ORAL For High Blood Pressure 03/22/20 03:45 06/20/20 03:44 03/22/20 03:59 Dexamethasone Sodium Phosphate (Decadron 10mg/ ml Inj) 6 mg DAILY IV 03/23/20 09:00 03/28/20 08:59 03/23/20 11:50 Dextrose (Dextrose 50%) 25 ml Q30M PRN IV Hypoglycemia 03/18/20 14:00 06/16/20 13:59 Dextrose (Dextrose 50%) 50 ml Q30M PRN IV Hypoglycemia 03/18/20 14:00 06/16/20 13:59 Escitalopram Oxalate (Lexapro) 5 mg DAILY ORAL 03/19/20 09:00 04/18/20 08:59 03/23/20 11:47 Heparin Sodium (Porcine) (Heparin 5000 units/ml) 5,000 units EVERY 12 HOURS SUBQ 03/18/20 21:00 05/02/20 20:59 03/23/20 22:02 Hydralazine HCl (Apresoline) 25 mg Q8HR ORAL 03/24/20 09:00 06/20/20 08:59 Hydralazine HCl (Apresoline) 50 mg EVERY 8 HOURS PRN ORAL For High Blood Pressure 03/22/20 00:30 06/20/20 00:29 Insulin Aspart (NovoLOG) BEFORE MEALS AND HS SUBQ 03/18/20 16:30 06/16/20 16:29 03/24/20 06:38 Lorazepam (Ativan 2mg/ml 1ml) 2 mg Q2H PRN IV For Anxiety 03/18/20 14:00 03/25/20 13:59 Losartan Potassium (Cozaar) 50 mg EVERY 12 HOURS ORAL 9/22/20 15:00 04/21/20 14:59 03/23/20 22:02 Meropenem 1 gm/ Sodium Chloride 55 ml @ 110 mls/hr Q12HR@0400,1600 IVPB 03/21/20 16:00 03/26/20 15:59 03/24/20 04:09 Ondansetron HCl (Zofran) 4 mg Q6H PRN IVP Nausea & Vomiting 03/18/20 14:00 04/17/20 13:59 Polyethylene Glycol (Miralax) 17 gm DAILYPRN PRN ORAL Constipation 03/18/20 14:00 04/17/20 13:59 03/22/20 17:26 Promethazine HCl/ Codeine (Phenergan with Codeine) 5 ml Q4H PRN ORAL For Cough 03/18/20 14:00 04/17/20 13:59 Remdesivir 100 mg/ Sodium Chloride 250 ml @ 250 mls/hr Q24H IV 03/21/20 14:00 03/24/20 14:59 03/23/20 14:11 Vancomycin HCl (Vanco pharmacy to dose) 1 ea DAILY PRN MISC . 03/18/20 14:15 04/17/20 14:14 Vancomycin HCl 500 mg/Sodium Chloride 100 ml @ 100 mls/hr Q8H IVPB 03/24/20 01:00 03/29/20 00:59 03/24/20 01:19 Mio Oviedo MD Mar 24, 2020 09:51
[2020-03-24] MEDS: dexAMETHasone 10mg/ml Inj IV SCH (10:25)
[2020-03-24] MEDS: Losartan 50mg tab ORAL SCH ×2 (10:26→20:49)
[2020-03-24] MEDS: HydrALAZINE 25mg tab ORAL SCH ×3 (10:27→21:21)
[2020-03-24] MEDS: Allopurinol 100mg Tab ORAL SCH (10:27)
[2020-03-24] MEDS: Carvedilol 12.5mg tab ORAL SCH ×2 (10:28→20:50)
[2020-03-24] MEDS: Heparin 5000 units/ml inj SUBQ SCH ×2 (10:28→20:48)
--- NOTE | 2020-03-24 11:22 | Pulmonology Progress Note ---
Subjective ROS Limited/Unobtainable: Yes Constitutional: Reports: no symptoms HEENT: Repors: no symptoms Respiratory: Reports: no symptoms Allergies: Coded Allergies: No Known Allergies (Unverified , 09/17/12) Objective Last 24 Hour Vital Signs Date Time Temp Pulse Resp B/P (MAP) Pulse Ox O2 Delivery O2 Flow Rate FiO2 03/24/20 10:27 149/52 03/24/20 10:26 149/52 03/24/20 10:25 61 149/52 03/24/20 04:00 46 03/24/20 04:00 97.7 70 21 116/43 (67) 96 03/24/20 00:00 47 03/24/20 00:00 99.4 75 21 145/67 (93) 98 03/23/20 22:08 73 132/55 03/23/20 22:03 73 132/55 03/23/20 22:02 132/55 03/23/20 21:00 Nasal Cannula 2.0 03/23/20 20:23 97 Nasal Cannula 2.0 28 03/23/20 20:00 64 03/23/20 20:00 98.4 73 22 132/48 (76) 94 03/23/20 17:35 74 153/66 03/23/20 17:34 153/66 03/23/20 16:00 71 03/23/20 16:00 100.4 74 20 153/66 (95) 98 03/23/20 13:00 142/58 03/23/20 12:00 57 03/23/20 11:45 156/60 03/23/20 11:45 56 156/60 03/23/20 11:43 99.0 54 20 156/60 (92) 98 Intake and Output 03/23/20 03/24/20 19:00 07:00 Intake Total 240 ml 200 ml Output Total 500 ml Balance 240 ml -300 ml Intake Oral 240 ml 200 ml Output Urine Total 500 ml # Voids 1 General Appearance: WD/WN HEENT: normocephalic, atraumatic Respiratory: chest wall non-tender, lungs clear Breasts: no masses Cardiovascular: normal peripheral pulses, normal rate Abdomen: normal bowel sounds Genitourinary: normal external genitalia Extremities: no cyanosis Skin: no lesions Neurologic: child adolescent care II-XII grossly normal Microbiology Date/Time Source Procedure Growth Status 03/21/20 16:30 Blood Blood Culture - Preliminary NO GROWTH AFTER 48 HOURS Resulted 03/21/20 16:30 Blood Blood Culture - Preliminary NO GROWTH AFTER 48 HOURS Resulted Laboratory Tests 03/23/20 11:48: POC Whole Blood Glucose 172H 03/23/20 17:12: POC Whole Blood Glucose [Pending] 03/23/20 20:40: Vancomycin Level Trough 22.8H 03/23/20 22:20: POC Whole Blood Glucose [Pending] 03/24/20 06:17: White Blood Count 9.6, Red Blood Count 4.12L, Hemoglobin 11.4L, Hematocrit 35.4L , Mean Corpuscular Volume 86, Mean Corpuscular Hemoglobin 27.7, Mean Corpuscular Hemoglobin Concent 32.2, Red Cell Distribution Width 14.5, Platelet Count 388#, Mean Platelet Volume 5.8L, Neutrophils (%) (Auto) 65.2, Lymphocytes (%) (Auto) 23.5, Monocytes (%) (Auto) 10.1H, Eosinophils (%) (Auto) 0.2, Basophils (%) (Auto) 1.1, Sodium Level 137, Potassium Level 3.8, Chloride Level 101, Carbon Dioxide Level 26, Anion Gap 10, Blood Urea Nitrogen 20H, Creatinine 1.1, Estimat Glomerular Filtration Rate 59.0, Glucose Level 196H, Calcium Level 9.4, Total Bilirubin 0.4, Direct Bilirubin < 0.1, Aspartate Amino Transf (AST/SGOT) 30, Alanine Aminotransferase (ALT/SGPT) 68, Alkaline Phosphatase 112, Total Protein 6.9, Albumin 3.2L, Globulin 3.7, Albumin/Globulin Ratio 0.9L 03/24/20 06:34: POC Whole Blood Glucose [Pending] Current Medications Medications (Trade) Dose Ordered Sig/Nick Route PRN Reason Start Time Stop Time Status Last Admin Dose Admin Acetaminophen (Tylenol) 650 mg Q4H PRN ORAL FEVER 03/18/20 14:00 04/17/20 13:59 Allopurinol (Zyloprim) 200 mg DAILY ORAL 03/19/20 09:00 04/18/20 08:59 03/24/20 10:27 Amlodipine Besylate (Norvasc) 2.5 mg DAILY ORAL 03/23/20 19:45 04/22/20 19:44 03/24/20 10:25 Carvedilol (Coreg) 6.25 mg EVERY 12 HOURS ORAL 03/22/20 09:00 04/17/20 20:59 03/23/20 22:03 Clonidine HCl (Catapres Tab) 0.1 mg Q4H PRN ORAL For High Blood Pressure 03/22/20 03:45 06/20/20 03:44 03/22/20 03:59 Dexamethasone Sodium Phosphate (Decadron 10mg/ ml Inj) 6 mg DAILY IV 03/23/20 09:00 03/28/20 08:59 03/24/20 10:25 Dextrose (Dextrose 50%) 25 ml Q30M PRN IV Hypoglycemia 03/18/20 14:00 06/16/20 13:59 Dextrose (Dextrose 50%) 50 ml Q30M PRN IV Hypoglycemia 03/18/20 14:00 06/16/20 13:59 Escitalopram Oxalate (Lexapro) 5 mg DAILY ORAL 03/19/20 09:00 04/18/20 08:59 03/24/20 10:19 Heparin Sodium (Porcine) (Heparin 5000 units/ml) 5,000 units EVERY 12 HOURS SUBQ 03/18/20 21:00 05/02/20 20:59 03/24/20 10:28 Hydralazine HCl (Apresoline) 25 mg Q8HR ORAL 03/24/20 09:00 06/20/20 08:59 03/24/20 10:27 Hydralazine HCl (Apresoline) 50 mg EVERY 8 HOURS PRN ORAL For High Blood Pressure 03/22/20 00:30 06/20/20 00:29 Insulin Aspart (NovoLOG) BEFORE MEALS AND HS SUBQ 03/18/20 16:30 06/16/20 16:29 03/24/20 06:38 Lorazepam (Ativan 2mg/ml 1ml) 2 mg Q2H PRN IV For Anxiety 03/18/20 14:00 03/25/20 13:59 Losartan Potassium (Cozaar) 50 mg EVERY 12 HOURS ORAL 03/22/20 15:00 04/21/20 14:59 03/24/20 10:26 Meropenem 1 gm/ Sodium Chloride 55 ml @ 110 mls/hr Q12HR@0400,1600 IVPB 03/21/20 16:00 03/26/20 15:59 03/24/20 04:09 Ondansetron HCl (Zofran) 4 mg Q6H PRN IVP Nausea & Vomiting 03/18/20 14:00 04/17/20 13:59 Polyethylene Glycol (Miralax) 17 gm DAILYPRN PRN ORAL Constipation 03/18/20 14:00 04/17/20 13:59 03/22/20 17:26 Promethazine HCl/ Codeine (Phenergan with Codeine) 5 ml Q4H PRN ORAL For Cough 03/18/20 14:00 04/17/20 13:59 Remdesivir 100 mg/ Sodium Chloride 250 ml @ 250 mls/hr Q24H IV 03/21/20 14:00 03/24/20 14:59 03/23/20 14:11 Vancomycin HCl (Vanco pharmacy to dose) 1 ea DAILY PRN MISC . 03/18/20 14:15 04/17/20 14:14 Vancomycin HCl 500 mg/Sodium Chloride 100 ml @ 100 mls/hr Q8H IVPB 03/24/20 01:00 03/29/20 00:59 03/24/20 09:00 Assessment/Plan Problems: (1) 2019 novel coronavirus disease (COVID-19) (2) UTI (urinary tract infection) (3) Diabetes mellitus (4) History of hypertension (5) Gout (6) HX: breast cancer (7) Major depression, recurrent (8) Bacteremia Assessment/Plan repeat BC were negative low grade temp last night check cxr, 03/22, decreasing infiltrate Decreased and now minimal interstitial congestion respiratory isolation check urine culture sliding scale diabetic diet monitor BP Calli Lux MD Mar 24, 2020 11:22
[2020-03-24 12:00] VITALS: BP 140/56
--- NOTE | 2020-03-24 14:04 | Cardiology Report ---
APPROVED REPORT EKG Measurement Heart [id number] ID [id number] <Conclusion> Sinus rhythm with 1st degree AV block Left axis deviation Moderate voltage criteria for LVH, may be normal variant Nonspecific T wave abnormality Abnormal ECG
[2020-03-24] MEDS: Maintenance Dose:Remdesivir 100mg/NS 230ml x 4 Doses IV SCH ×2 (14:40)
--- NOTE | 2020-03-24 14:50 | NUR ---
CASE MANAGEMENT:REVIEW 03/24/20 SI: COVID PNEUMONIA T: 98.9 HR 61 RR 22 B/P 149/52 SATS 95% ON 2L/NC LABS: BUN 20 GLU 196 IS: IV REMDESIVIR Q24 (DAY #11/02) IV DECADRON QD IV VANCOMYCIN Q8HRS IV MEROPENEM Q12H : TELEMETRY STATUS DCP; FROM [facility]
--- NOTE | 2020-03-24 14:58 | NUR ---
DISCHARGE PLANNING: NOTE CLINICALS FAXED TO [facility] T: [phone]/F: [phone] DC REQUESTED Addendum: 03/24/20 at 1505 by Aby Mcgrath CM NO DC TODAY. PT LETHARGIC PER
[2020-03-24 16:00] VITALS: BP 135/60
--- NOTE | 2020-03-24 17:15 | Internal Med Progress Note ---
Subjective Date of Service: Mar 24, 2020 Physician Name BessBk Attending Physician Papa French MD Current Medications Medications (Trade) Dose Ordered Sig/Nick Route PRN Reason Start Time Stop Time Status Last Admin Dose Admin Acetaminophen (Tylenol) 650 mg Q4H PRN ORAL FEVER 03/18/20 14:00 04/17/20 13:59 Allopurinol (Zyloprim) 200 mg DAILY ORAL 03/19/20 09:00 04/18/20 08:59 03/24/20 10:27 Amlodipine Besylate (Norvasc) 2.5 mg DAILY ORAL 03/23/20 19:45 04/22/20 19:44 03/24/20 10:25 Carvedilol (Coreg) 6.25 mg EVERY 12 HOURS ORAL 03/22/20 09:00 04/17/20 20:59 03/23/20 22:03 Clonidine HCl (Catapres Tab) 0.1 mg Q4H PRN ORAL For High Blood Pressure 03/22/20 03:45 06/20/20 03:44 03/22/20 03:59 Dexamethasone Sodium Phosphate (Decadron 10mg/ ml Inj) 6 mg DAILY IV 03/23/20 09:00 03/28/20 08:59 03/24/20 10:25 Dextrose (Dextrose 50%) 25 ml Q30M PRN IV Hypoglycemia 03/18/20 14:00 06/16/20 13:59 Dextrose (Dextrose 50%) 50 ml Q30M PRN IV Hypoglycemia 03/18/20 14:00 06/16/20 13:59 Escitalopram Oxalate (Lexapro) 5 mg DAILY ORAL 03/19/20 09:00 04/18/20 08:59 03/24/20 10:19 Heparin Sodium (Porcine) (Heparin 5000 units/ml) 5,000 units EVERY 12 HOURS SUBQ 03/18/20 21:00 05/02/20 20:59 03/24/20 10:28 Hydralazine HCl (Apresoline) 25 mg Q8HR ORAL 03/24/20 09:00 06/20/20 08:59 03/24/20 16:00 Hydralazine HCl (Apresoline) 50 mg EVERY 8 HOURS PRN ORAL For High Blood Pressure 03/22/20 00:30 06/20/20 00:29 Insulin Aspart (NovoLOG) BEFORE MEALS AND HS SUBQ 03/18/20 16:30 06/16/20 16:29 03/24/20 11:30 Lorazepam (Ativan 2mg/ml 1ml) 2 mg Q2H PRN IV For Anxiety 03/18/20 14:00 03/25/20 13:59 Losartan Potassium (Cozaar) 50 mg EVERY 12 HOURS ORAL 03/22/20 15:00 04/21/20 14:59 03/24/20 10:26 Meropenem 1 gm/ Sodium Chloride 55 ml @ 110 mls/hr Q12HR@0400,1600 IVPB 03/21/20 16:00 03/26/20 15:59 03/24/20 16:00 Ondansetron HCl (Zofran) 4 mg Q6H PRN IVP Nausea & Vomiting 03/18/20 14:00 04/17/20 13:59 Polyethylene Glycol (Miralax) 17 gm DAILYPRN PRN ORAL Constipation 03/18/20 14:00 04/17/20 13:59 03/22/20 17:26 Promethazine HCl/ Codeine (Phenergan with Codeine) 5 ml Q4H PRN ORAL For Cough 03/18/20 14:00 04/17/20 13:59 Vancomycin HCl (Vanco pharmacy to dose) 1 ea DAILY PRN MISC . 03/18/20 14:15 04/17/20 14:14 Vancomycin HCl 500 mg/Sodium Chloride 100 ml @ 100 mls/hr Q8H IVPB 03/24/20 01:00 03/29/20 00:59 03/24/20 09:00 Allergies: Coded Allergies: No Known Allergies (Unverified , 09/17/12) ROS Limited/Unobtainable: Yes Subjective 74 YO F admitted with fever. Now COVID 19 positive and pneumonia. Cover for Int [facility]-Dr French Objective Last Vital Signs Date Time Temp Pulse Resp B/P (MAP) Pulse Ox O2 Delivery O2 Flow Rate FiO2 03/24/20 16:00 135/60 03/24/20 12:00 61 03/24/20 12:00 98.8 20 96 03/24/20 09:00 Nasal Cannula 2.0 03/23/20 20:23 28 Laboratory Tests Test 03/23/20 20:40 03/23/20 22:20 03/24/20 06:17 03/24/20 06:34 Vancomycin Level Trough 22.8 ug/mL (5.0-12.0) H POC Whole Blood Glucose Pending Pending White Blood Count 9.6 K/UL (4.8-10.8) Red Blood Count 4.12 M/UL (4.20-5.40) L Hemoglobin 11.4 G/DL (12.0-16.0) L Hematocrit 35.4 % (37.0-47.0) L Mean Corpuscular Volume 86 FL (80-99) Mean Corpuscular Hemoglobin 27.7 PG (27.0-31.0) Mean Corpuscular Hemoglobin Concent 32.2 G/DL (32.0-36.0) Red Cell Distribution Width 14.5 % (11.6-14.8) Platelet Count 388 K/UL (150-450) # Mean Platelet Volume 5.8 FL (6.5-10.1) L Neutrophils (%) (Auto) 65.2 % (45.0-75.0) Lymphocytes (%) (Auto) 23.5 % (20.0-45.0) Monocytes (%) (Auto) 10.1 % (1.0-10.0) H Eosinophils (%) (Auto) 0.2 % (0.0-3.0) Basophils (%) (Auto) 1.1 % (0.0-2.0) Sodium Level 137 MMOL/L (136-145) Potassium Level 3.8 MMOL/L (3.5-5.1) Chloride Level 101 MMOL/L (98-107) Carbon Dioxide Level 26 MMOL/L (21-32) Anion Gap 10 mmol/L (5-15) Blood Urea Nitrogen 20 mg/dL (7-18) H Creatinine 1.1 MG/DL (0.55-1.30) Estimat Glomerular Filtration Rate 59.0 mL/min (>60) Glucose Level 196 MG/DL (74-106) H Calcium Level 9.4 MG/DL (8.5-10.1) Total Bilirubin 0.4 MG/DL (0.2-1.0) Direct Bilirubin < 0.1 MG/DL (0.0-0.3) Aspartate Amino Transf (AST/SGOT) 30 U/L (15-37) Alanine Aminotransferase (ALT/SGPT) 68 U/L (12-78) Alkaline Phosphatase 112 U/L (46-116) Total Protein 6.9 G/DL (6.4-8.2) Albumin 3.2 G/DL (3.4-5.0) L Globulin 3.7 g/dL Albumin/Globulin Ratio 0.9 (1.0-2.7) L Test 03/24/20 11:21 POC Whole Blood Glucose Pending Intake and Output 03/23/20 03/24/20 19:00 07:00 Intake Total 240 ml 200 ml Output Total 500 ml Balance 240 ml -300 ml Intake Oral 240 ml 200 ml Output Urine Total 500 ml # Voids 1 Objective PHYSICAL EXAMINATION: GENERAL: The patient awake, responsive, no acute distress. HEENT: Head and neck examination, pupils are equal and reactive to light. Extraocular muscles intact. Neck was supple. No JVD. LUNGS: Good air entry. Decreased air in bases. HEART: S1, S2. Regular rhythm. No gallops. ABDOMEN: Soft, nontender, nondistended. Mildly obese. EXTREMITIES: No cyanosis, clubbing, or edema. NEUROLOGIC: Cranial nerves II through XII grossly intact. The patient moving all extremities. RECTAL: Refused and deferred. GENITOURINARY: Refused and deferred. PSYCHIATRIC: Mood and affect is intact. Assessment/Plan Assessment/Plan ASSESSMENT: 1. COVID-19 pneumonia. 2. Acute hypoxemic respiratory failure. 3. Low-grade fever, possible due to the pneumonia. 4. Possible urinary tract infection. 5. Congestive heart failure, chronic. 6. Obesity. 7. Hypertension. 8. Diabetes type 2. 9. History of CVA. 10. UTI=ESBL E. Coli PLAN: 1. Admit the patient to monitored unit. 2. antibiotic=vancomycin, meropenem, and azithromycin. S/P cefepime 3. Continue Decadron IV. 4. Continue Remdesivir 5. DVT prophylaxis=heparin subcutaneous. 6. Code status is Full Code. 7. Dr. Calli Lux=Pulmonary Critical Care 8. Dr. Hernandez = Infectious Disease Bk Kellogg MD Mar 24, 2020 17:15
--- NOTE | 2020-03-24 19:56 | NUR ---
NURSE NOTES: Report received form Lisa JONAS. Patient is awake and alert x 2. Patient is noted to be on 2 liters of oxygen via nasal canula. Patient does not appear to be in respiratory distress at this time. Patient has no complaints at this time. Patient is noted to be positive for covid 19. Patient is noted to have left forearm 22 samuel IV access saline lock. Was endorsed to Waqas JONAS that patient is currently on Remdesivir. Patient is noted to need a sputum and stool sample collected. Call light is in reach. Bed is locked, alarmed, and in lowest position. Will continue to follow plan of care.
[2020-03-24 20:00] VITALS: BP 155/69
--- NOTE | 2020-03-24 20:07 | NUR ---
NURSE HAND-OFF REPORT: Important Events on Shift:stable condition Patient Status: full code Diet: ccho Pending Orders: Pending Results/Labs: Pending MD notification: Latest Vital Signs: Temperature 98.6 , Pulse 65 , B/P 135 /60 , Respiratory Rate 22 , O2 SAT 95 , Nasal Cannula, O2 Flow Rate 2.0 . Vital Sign Comment: EKG Rhythm: Sinus Rhythm Rhythm change?: N MD Notified?: N -Dr Jose J BADILLO Response: No New Orders Received Latest Garcia Fall Score: 70 Fall Risk: High Risk Safety Measures: Call light Within Reach, Bed Alarm Zone 1, Side Rails Side Rails x2, Bed position Low and Locked. Fall Precautions: y Yellow Socks y Yellow Gown y Door Sign y Patient Fall Education y Report given to Rolf/rn .
--- NOTE | 2020-03-24 20:19 | Cardiology Progress Note ---
Assessment/Plan Assessment/Plan 1. Acute COVID-19 infection. 2. COVID-19 pneumonia. 3. History of cardiomyopathy reportedly. 4. Diabetes mellitus. 5. Hypertension. 6. Hyperlipidemia. 7. Obesity. tele reviewed personally sinus jay jay earlier now sinus jay jay resolved on lower dose of coreg no sig pauses noted trop neg pro bnp normal cxr improved bp better diuretic prn Subjective Subjective deferred due to acute covid infection per rn atient is awake and alert x 2. Patient is noted to be on 2 liters of oxygen via nasal canula. Patient does not appear to be in respiratory distress at this time. Patient has no complaints at this time. Patient is noted to be positive for covid 19. Objective Last 24 Hour Vital Signs Date Time Temp Pulse Resp B/P (MAP) Pulse Ox O2 Delivery O2 Flow Rate FiO2 03/24/20 16:00 66 03/24/20 16:00 98.6 65 22 135/60 (85) 95 03/24/20 16:00 135/60 03/24/20 12:00 61 03/24/20 12:00 98.8 76 20 140/56 (84) 96 03/24/20 10:27 149/52 03/24/20 10:26 149/52 03/24/20 10:25 61 149/52 03/24/20 09:00 Nasal Cannula 2.0 03/24/20 08:00 62 03/24/20 08:00 98.9 61 22 149/52 (84) 95 03/24/20 04:00 46 03/24/20 04:00 97.7 70 21 116/43 (67) 96 03/24/20 00:00 47 03/24/20 00:00 99.4 75 21 145/67 (93) 98 03/23/20 22:08 73 132/55 03/23/20 22:03 73 132/55 03/23/20 22:02 132/55 03/23/20 21:00 Nasal Cannula 2.0 03/23/20 20:23 97 Nasal Cannula 2.0 28 Intake and Output 03/23/20 03/24/20 18:59 06:59 Intake Total 240 ml 200 ml Output Total 500 ml Balance 240 ml -300 ml Intake Oral 240 ml 200 ml Output Urine Total 500 ml # Voids 1 Laboratory Tests Test 03/23/20 20:40 03/23/20 22:20 03/24/20 06:17 03/24/20 06:34 Vancomycin Level Trough 22.8 ug/mL (5.0-12.0) H POC Whole Blood Glucose Pending Pending White Blood Count 9.6 K/UL (4.8-10.8) Red Blood Count 4.12 M/UL (4.20-5.40) L Hemoglobin 11.4 G/DL (12.0-16.0) L Hematocrit 35.4 % (37.0-47.0) L Mean Corpuscular Volume 86 FL (80-99) Mean Corpuscular Hemoglobin 27.7 PG (27.0-31.0) Mean Corpuscular Hemoglobin Concent 32.2 G/DL (32.0-36.0) Red Cell Distribution Width 14.5 % (11.6-14.8) Platelet Count 388 K/UL (150-450) # Mean Platelet Volume 5.8 FL (6.5-10.1) L Neutrophils (%) (Auto) 65.2 % (45.0-75.0) Lymphocytes (%) (Auto) 23.5 % (20.0-45.0) Monocytes (%) (Auto) 10.1 % (1.0-10.0) H Eosinophils (%) (Auto) 0.2 % (0.0-3.0) Basophils (%) (Auto) 1.1 % (0.0-2.0) Sodium Level 137 MMOL/L (136-145) Potassium Level 3.8 MMOL/L (3.5-5.1) Chloride Level 101 MMOL/L (98-107) Carbon Dioxide Level 26 MMOL/L (21-32) Anion Gap 10 mmol/L (5-15) Blood Urea Nitrogen 20 mg/dL (7-18) H Creatinine 1.1 MG/DL (0.55-1.30) Estimat Glomerular Filtration Rate 59.0 mL/min (>60) Glucose Level 196 MG/DL (74-106) H Calcium Level 9.4 MG/DL (8.5-10.1) Total Bilirubin 0.4 MG/DL (0.2-1.0) Direct Bilirubin < 0.1 MG/DL (0.0-0.3) Aspartate Amino Transf (AST/SGOT) 30 U/L (15-37) Alanine Aminotransferase (ALT/SGPT) 68 U/L (12-78) Alkaline Phosphatase 112 U/L (46-116) Total Protein 6.9 G/DL (6.4-8.2) Albumin 3.2 G/DL (3.4-5.0) L Globulin 3.7 g/dL Albumin/Globulin Ratio 0.9 (1.0-2.7) L Test 03/24/20 11:21 03/24/20 17:22 POC Whole Blood Glucose Pending Pending Objective deferred due to active covid infection per dr feng LUNGS: Good air entry. Decreased air in bases. HEART: S1, S2. Regular rhythm. No gallops. ABDOMEN: Soft, nontender, nondistended. Mildly obese. EXTREMITIES: No cyanosis, clubbing, or edema Giovanni Veloz MD Mar 24, 2020 20:19
[2020-03-25] VITALS: BP 155/66
[2020-03-25 04:00] VITALS: BP 162/62
[2020-03-25] MEDS: Meropenem 1gm/NS 55ml IVPB SCH ×4 (05:11→16:00)
[2020-03-25] MEDS: NovoLOG Insulin Flexpen SUBQ SCH ×4 (05:49→21:00)
[2020-03-25] MEDS: HydrALAZINE 25mg tab ORAL SCH ×3 (05:50→21:21)
--- NOTE | 2020-03-25 05:56 | NUR ---
NURSE NOTES: Patient has sustained heart rate in the 40's. Heart rate is currently 43 BPM. Waqas JONAS went to assess the patient and patient awake and was at base line cognition and had no complains. Heart rate only sunny to 47 beats per minute. Waqas made charge nurse Kari aware. Waqas JONAS spoke with Doctor Veloz via telephone to make him aware. Doctor Veloz aware and informed Waqas JONAS to continue to hold Coreg.
[2020-03-25 07:31] LABS: BASOPHILS % (AUTO) 0.6 % (0.0-2.0); HEMATOCRIT 33.6 % (37.0-47.0); HEMOGLOBIN 10.9 G/DL (12.0-16.0); LYMPHOCYTES % (AUTO) 21.7 % (20.0-45.0); MEAN CORPUSCULAR VOLUME 86 FL (80-99); NEUTROPHILS % (AUTO) 68.7 % (45.0-75.0); PLATELET COUNT 354 K/UL (150-450); RED BLOOD COUNT 3.92 M/UL (4.20-5.40); RED CELL DISTRIBUTION WIDTH 14.5 % (11.6-14.8); WHITE BLOOD COUNT 10.6 K/UL (4.8-10.8)
--- NOTE | 2020-03-25 07:35 | NUR ---
NURSE HAND-OFF REPORT: Important Events on Shift: Patient was asleep most of shift. Patient was hypertensive and bradycardic. Endorsed that Doctor Roselia is aware. Patient Status: full code Diet: CCHO M Pending Orders: none Pending Results/Labs:morning labs Pending MD notification:none - Doctor Roselia aware of bradycardia Latest Vital Signs: Temperature 99.0 , Pulse 47 , B/P 166 /62 , Respiratory Rate 18 , O2 SAT 99 , Nasal Cannula, O2 Flow Rate 2.0 . Vital Sign Comment: bradycardic and hypertensive, on scheduled BP medication. EKG Rhythm: Sinus Bradycardia Rhythm change?: N MD Notified?: MD Response: Latest Garcia Fall Score: 70 Fall Risk: High Risk Safety Measures: Call light Within Reach, Bed Alarm Zone 1, Side Rails Side Rails x2, Bed position Low and Locked. Fall Precautions: Yellow Socks Yellow Gown Door Sign Patient Fall Education Report given to
[2020-03-25 07:42] LABS: ANION GAP 4 mmol/L (5-15); BLOOD UREA NITROGEN 21 mg/dL (7-18); CALCIUM 8.9 MG/DL (8.5-10.1); CARBON DIOXIDE 28 MMOL/L (21-32); CHLORIDE 102 MMOL/L (98-107); POTASSIUM 3.6 MMOL/L (3.5-5.1); SODIUM 134 MMOL/L (136-145)
[2020-03-25 08:00] VITALS: BP 150/48
--- NOTE | 2020-03-25 08:00 | NUR ---
NURSE NOTES: Pt is asleep, only responds after continued loud voice, O x name only, breathing easily on 2 lpm nasal cannula, denies SOB and denies pain at this time. Vital signs stable with SR at 56 on monitor. Pt is refusing to eat more than a spoon of breakfast. IV access left forearm flushed with 10ml NS and locked. Purewick in place, patent, draining clear yellow urine into collection canister. Bed left in low position, side rails up x 3 and call light left near pt's hand.
[2020-03-25] MEDS: Carvedilol 12.5mg tab ORAL SCH ×2 (09:00→21:05)
[2020-03-25] MEDS: dexAMETHasone 10mg/ml Inj IV SCH (09:23)
[2020-03-25] MEDS: Heparin 5000 units/ml inj SUBQ SCH ×2 (09:24→21:07)
[2020-03-25] MEDS: Allopurinol 100mg Tab ORAL SCH (09:24)
[2020-03-25] MEDS: Losartan 50mg tab ORAL SCH ×2 (09:24→21:06)
--- NOTE | 2020-03-25 09:58 | Infectious Diseases Prog Note ---
Assessment/Plan Assessment: COVID19 Pneumonia(dx'ed 03/15) Acute hypoxic resp failure- sp NC, now on 2 Lit O2 -03/22 CXR: Cardiomegaly. Decreased and now minimal interstitial congestion -03/21 CXR: Suspect slightly increased interstitial congestion. Cardiomegaly -03/18 rapid COVID PCR + CXR: Possible early infiltrate right midlung. Low grade fever, recurrent No leukocytosis Probable UTI -u/a wbc 60-80, nit +, leuk +3; ucx >100k ESBL E.coli, 20-30k GNR Gram positive bacteremia - Likely contaminants -03/21 Bcx p -03/18 Bcx 1/4 S. warneri, 07/04 S. hominis; 03/20 Bcx 1/4 S.auricularis; 03/21 Bcx NTD CHF obesity HTN Dm2 CVA Plan: -Meropenem #5/ for ESBL UTI -Decadron #8/10 - 03/25/20 SP IV Vancomcyin #9 - 03/24/20 SP Remdesivir #5/5 -03/22 SP Azithromycin #6 -03/20 SP Cefepime #4 -03/18 SP Ceftriaxone x1 -f/u cx -Monitor CBC/CMP, temperatures -COVID19 isolation - f/u repeat Bcx Pt agrees with RDV That the patient/ has been: a) Given the Fact Sheet for Patients and Parents/Caregivers( Asled RN to provide it the facts sheet) (helps patient understand risks and benefits)b. Informed of alternatives to receiving remdesivir, and c. Informed that remdesivir is an unapproved drug that is authorized for use under EUA Subjective Allergies: Coded Allergies: No Known Allergies (Unverified , 09/17/12) Afebrile on 2L NC No leukocytosis CHAMP Objective Last 24 Hour Vital Signs Date Time Temp Pulse Resp B/P (MAP) Pulse Ox O2 Delivery O2 Flow Rate FiO2 03/25/20 09:24 52 150/48 03/25/20 09:24 150/48 03/25/20 09:00 52 150/48 03/25/20 08:18 Nasal Cannula 2.0 03/25/20 08:00 99.3 52 20 150/48 (82) 98 03/25/20 05:50 166/62 03/25/20 04:00 99.0 47 18 162/62 (95) 99 03/25/20 04:00 47 03/25/20 00:00 99.0 60 18 155/66 (95) 99 03/25/20 00:00 53 03/24/20 21:21 172/88 03/24/20 21:00 Nasal Cannula 2.0 03/24/20 20:50 55 154/69 03/24/20 20:49 154/69 03/24/20 20:17 98 Nasal Cannula 2.0 28 03/24/20 20:00 98.4 55 20 155/69 (97) 99 03/24/20 20:00 60 03/24/20 16:00 66 03/24/20 16:00 98.6 65 22 135/60 (85) 95 03/24/20 16:00 135/60 03/24/20 12:00 61 03/24/20 12:00 98.8 76 20 140/56 (84) 96 03/24/20 10:27 149/52 03/24/20 10:26 149/52 03/24/20 10:25 61 149/52 Height (Feet): 5 Height (Inches): 5.00 Weight (Pounds): 225 GENERAL: NAD HEENT: NCAT, MMM, EOMI LUNGS: Equal rise and fall of chest B/L no accessory muscle use ABDOMEN: Soft, nondistended EXTREMITIES: No cyanosis, clubbing, or edema. Microbiology Date/Time Source Procedure Growth Status 03/24/20 13:50 Stool Clostridium difficile Toxin Assay - Final Complete Laboratory Tests Test 03/24/20 11:21 03/24/20 17:22 03/24/20 20:42 03/25/20 00:01 POC Whole Blood Glucose Pending Pending 213 MG/DL (74-106) H Vancomycin Level Trough 18.8 ug/mL (5.0-12.0) H Test 03/25/20 04:00 03/25/20 05:46 White Blood Count 10.6 K/UL (4.8-10.8) Red Blood Count 3.92 M/UL (4.20-5.40) L Hemoglobin 10.9 G/DL (12.0-16.0) L Hematocrit 33.6 % (37.0-47.0) L Mean Corpuscular Volume 86 FL (80-99) Mean Corpuscular Hemoglobin 27.7 PG (27.0-31.0) Mean Corpuscular Hemoglobin Concent 32.3 G/DL (32.0-36.0) Red Cell Distribution Width 14.5 % (11.6-14.8) Platelet Count 354 K/UL (150-450) Mean Platelet Volume 4.9 FL (6.5-10.1) L Neutrophils (%) (Auto) 68.7 % (45.0-75.0) Lymphocytes (%) (Auto) 21.7 % (20.0-45.0) Monocytes (%) (Auto) 9.0 % (1.0-10.0) Eosinophils (%) (Auto) 0.0 % (0.0-3.0) Basophils (%) (Auto) 0.6 % (0.0-2.0) Sodium Level 134 MMOL/L (136-145) L Potassium Level 3.6 MMOL/L (3.5-5.1) Chloride Level 102 MMOL/L (98-107) Carbon Dioxide Level 28 MMOL/L (21-32) Anion Gap 4 mmol/L (5-15) L Blood Urea Nitrogen 21 mg/dL (7-18) H Creatinine 1.0 MG/DL (0.55-1.30) Estimat Glomerular Filtration Rate > 60 mL/min (>60) Glucose Level 156 MG/DL (74-106) H Calcium Level 8.9 MG/DL (8.5-10.1) POC Whole Blood Glucose 166 MG/DL (74-106) H Current Medications Medications (Trade) Dose Ordered Sig/Nick Route PRN Reason Start Time Stop Time Status Last Admin Dose Admin Acetaminophen (Tylenol) 650 mg Q4H PRN ORAL FEVER 03/18/20 14:00 04/17/20 13:59 Allopurinol (Zyloprim) 200 mg DAILY ORAL 03/19/20 09:00 04/18/20 08:59 03/25/20 09:24 Amlodipine Besylate (Norvasc) 2.5 mg DAILY ORAL 03/23/20 19:45 04/22/20 19:44 03/25/20 09:24 Carvedilol (Coreg) 6.25 mg EVERY 12 HOURS ORAL 03/22/20 09:00 04/17/20 20:59 03/23/20 22:03 Clonidine HCl (Catapres Tab) 0.1 mg Q4H PRN ORAL For High Blood Pressure 03/22/20 03:45 06/20/20 03:44 03/22/20 03:59 Dexamethasone Sodium Phosphate (Decadron 10mg/ ml Inj) 6 mg DAILY IV 03/23/20 09:00 03/28/20 08:59 03/25/20 09:23 Dextrose (Dextrose 50%) 25 ml Q30M PRN IV Hypoglycemia 03/18/20 14:00 06/16/20 13:59 Dextrose (Dextrose 50%) 50 ml Q30M PRN IV Hypoglycemia 03/18/20 14:00 06/16/20 13:59 Escitalopram Oxalate (Lexapro) 5 mg DAILY ORAL 03/19/20 09:00 04/18/20 08:59 03/25/20 09:24 Heparin Sodium (Porcine) (Heparin 5000 units/ml) 5,000 units EVERY 12 HOURS SUBQ 03/18/20 21:00 05/02/20 20:59 03/25/20 09:24 Hydralazine HCl (Apresoline) 25 mg Q8HR ORAL 03/24/20 09:00 06/20/20 08:59 03/25/20 05:50 Hydralazine HCl (Apresoline) 50 mg EVERY 8 HOURS PRN ORAL For High Blood Pressure 03/22/20 00:30 06/20/20 00:29 Insulin Aspart (NovoLOG) BEFORE MEALS AND HS SUBQ 03/18/20 16:30 06/16/20 16:29 03/25/20 05:49 Lorazepam (Ativan 2mg/ml 1ml) 2 mg Q2H PRN IV For Anxiety 03/18/20 14:00 03/25/20 13:59 Losartan Potassium (Cozaar) 50 mg EVERY 12 HOURS ORAL 03/22/20 15:00 04/21/20 14:59 03/25/20 09:24 Meropenem 1 gm/ Sodium Chloride 55 ml @ 110 mls/hr Q12HR@0400,1600 IVPB 03/21/20 16:00 03/26/20 15:59 03/25/20 05:11 Ondansetron HCl (Zofran) 4 mg Q6H PRN IVP Nausea & Vomiting 03/18/20 14:00 04/17/20 13:59 Polyethylene Glycol (Miralax) 17 gm DAILYPRN PRN ORAL Constipation 03/18/20 14:00 04/17/20 13:59 03/22/20 17:26 Promethazine HCl/ Codeine (Phenergan with Codeine) 5 ml Q4H PRN ORAL For Cough 03/18/20 14:00 04/17/20 13:59 Vancomycin HCl (Vanco pharmacy to dose) 1 ea DAILY PRN MISC . 03/18/20 14:15 04/17/20 14:14 Vancomycin HCl 500 mg/Sodium Chloride 100 ml @ 100 mls/hr Q8H IVPB 03/24/20 01:00 03/29/20 00:59 03/25/20 09:26 Mio Oviedo MD Mar 25, 2020 09:58
--- NOTE | 2020-03-25 11:44 | Pulmonology Progress Note ---
Subjective ROS Limited/Unobtainable: Yes Constitutional: Reports: no symptoms HEENT: Repors: no symptoms Respiratory: Reports: no symptoms Allergies: Coded Allergies: No Known Allergies (Unverified , 09/17/12) Objective Last 24 Hour Vital Signs Date Time Temp Pulse Resp B/P (MAP) Pulse Ox O2 Delivery O2 Flow Rate FiO2 03/25/20 09:24 52 150/48 03/25/20 09:24 150/48 03/25/20 09:00 52 150/48 03/25/20 08:18 Nasal Cannula 2.0 03/25/20 08:00 52 03/25/20 08:00 99.3 52 20 150/48 (82) 98 03/25/20 05:50 166/62 03/25/20 04:00 99.0 47 18 162/62 (95) 99 03/25/20 04:00 47 03/25/20 00:00 99.0 60 18 155/66 (95) 99 03/25/20 00:00 53 03/24/20 21:21 172/88 03/24/20 21:00 Nasal Cannula 2.0 03/24/20 20:50 55 154/69 03/24/20 20:49 154/69 03/24/20 20:17 98 Nasal Cannula 2.0 28 03/24/20 20:00 98.4 55 20 155/69 (97) 99 03/24/20 20:00 60 03/24/20 16:00 66 03/24/20 16:00 98.6 65 22 135/60 (85) 95 03/24/20 16:00 135/60 03/24/20 12:00 61 03/24/20 12:00 98.8 76 20 140/56 (84) 96 Intake and Output 03/24/20 03/25/20 19:00 07:00 Intake Total 360 ml 275 ml Output Total 650 ml 200 ml Balance -290 ml 75 ml Intake Oral 360 ml 120 ml IV Total 155 ml Output Urine Total 650 ml 200 ml General Appearance: WD/WN HEENT: normocephalic, atraumatic Respiratory: chest wall non-tender, lungs clear Breasts: no masses Cardiovascular: normal peripheral pulses, normal rate Abdomen: normal bowel sounds Genitourinary: normal external genitalia Extremities: no cyanosis Skin: no lesions Neurologic: customer retention representative II-XII grossly normal Microbiology Date/Time Source Procedure Growth Status 03/24/20 13:50 Stool Clostridium difficile Toxin Assay - Final Complete Laboratory Tests 03/24/20 17:22: POC Whole Blood Glucose [Pending] 03/24/20 20:42: POC Whole Blood Glucose 213H 03/25/20 00:01: Vancomycin Level Trough 18.8H 03/25/20 04:00: White Blood Count 10.6, Red Blood Count 3.92L, Hemoglobin 10.9L, Hematocrit 33.6L, Mean Corpuscular Volume 86, Mean Corpuscular Hemoglobin 27.7, Mean Corpu scular Hemoglobin Concent 32.3, Red Cell Distribution Width 14.5, Platelet Count 354, Mean Platelet Volume 4.9L, Neutrophils (%) (Auto) 68.7, Lymphocytes (%) (Auto) 21.7, Monocytes (%) (Auto) 9.0, Eosinophils (%) (Auto) 0.0, Basophils (%) (Auto) 0.6, Sodium Level 134L, Potassium Level 3.6, Chloride Level 102, Carbon Dioxide Level 28, Anion Gap 4L, Blood Urea Nitrogen 21H, Creatinine 1.0, Estimat Glomerular Filtration Rate > 60, Glucose Level 156H, Calcium Level 8.9 03/25/20 05:46: POC Whole Blood Glucose 166H Current Medications Medications (Trade) Dose Ordered Sig/Nick Route PRN Reason Start Time Stop Time Status Last Admin Dose Admin Acetaminophen (Tylenol) 650 mg Q4H PRN ORAL FEVER 03/18/20 14:00 04/17/20 13:59 Allopurinol (Zyloprim) 200 mg DAILY ORAL 03/19/20 09:00 04/18/20 08:59 03/25/20 09:24 Amlodipine Besylate (Norvasc) 2.5 mg DAILY ORAL 03/23/20 19:45 04/22/20 19:44 03/25/20 09:24 Carvedilol (Coreg) 6.25 mg EVERY 12 HOURS ORAL 03/22/20 09:00 04/17/20 20:59 03/23/20 22:03 Clonidine HCl (Catapres Tab) 0.1 mg Q4H PRN ORAL For High Blood Pressure 03/22/20 03:45 06/20/20 03:44 03/22/20 03:59 Dexamethasone Sodium Phosphate (Decadron 10mg/ ml Inj) 6 mg DAILY IV 03/23/20 09:00 03/28/20 08:59 03/25/20 09:23 Dextrose (Dextrose 50%) 25 ml Q30M PRN IV Hypoglycemia 03/18/20 14:00 06/16/20 13:59 Dextrose (Dextrose 50%) 50 ml Q30M PRN IV Hypoglycemia 03/18/20 14:00 06/16/20 13:59 Escitalopram Oxalate (Lexapro) 5 mg DAILY ORAL 03/19/20 09:00 04/18/20 08:59 03/25/20 09:24 Heparin Sodium (Porcine) (Heparin 5000 units/ml) 5,000 units EVERY 12 HOURS SUBQ 03/18/20 21:00 05/02/20 20:59 03/25/20 09:24 Hydralazine HCl (Apresoline) 25 mg Q8HR ORAL 03/24/20 09:00 06/20/20 08:59 03/25/20 05:50 Hydralazine HCl (Apresoline) 50 mg EVERY 8 HOURS PRN ORAL For High Blood Pressure 03/22/20 00:30 06/20/20 00:29 Insulin Aspart (NovoLOG) BEFORE MEALS AND HS SUBQ 03/18/20 16:30 06/16/20 16:29 03/25/20 05:49 Lorazepam (Ativan 2mg/ml 1ml) 2 mg Q2H PRN IV For Anxiety 03/18/20 14:00 03/25/20 13:59 Losartan Potassium (Cozaar) 50 mg EVERY 12 HOURS ORAL 03/22/20 15:00 04/21/20 14:59 03/25/20 09:24 Meropenem 1 gm/ Sodium Chloride 55 ml @ 110 mls/hr Q12HR@0400,1600 IVPB 03/21/20 16:00 03/27/20 23:59 03/25/20 05:11 Ondansetron HCl (Zofran) 4 mg Q6H PRN IVP Nausea & Vomiting 03/18/20 14:00 04/17/20 13:59 Polyethylene Glycol (Miralax) 17 gm DAILYPRN PRN ORAL Constipation 03/18/20 14:00 04/17/20 13:59 03/22/20 17:26 Promethazine HCl/ Codeine (Phenergan with Codeine) 5 ml Q4H PRN ORAL For Cough 03/18/20 14:00 04/17/20 13:59 Assessment/Plan Problems: (1) 2019 novel coronavirus disease (COVID-19) (2) UTI (urinary tract infection) (3) Diabetes mellitus (4) History of hypertension (5) Gout (6) HX: breast cancer (7) Major depression, recurrent (8) Bacteremia Assessment/Plan pt not eating or drinking, will order 48 hours calorie count repeat BC were negative low grade temp last night check cxr, 03/22, decreasing infiltrate Decreased and now minimal interstitial congestion respiratory isolation check urine culture sliding scale diabetic diet monitor BP Calli Lux MD Mar 25, 2020 11:44
[2020-03-25 12:00] VITALS: BP 154/58
--- NOTE | 2020-03-25 14:34 | Cardiology Report ---
APPROVED REPORT EKG Measurement Heart [id number] MO [id number] <Conclusion> Sinus bradycardia Minimal voltage criteria for LVH, may be normal variant Borderline ECG
--- NOTE | 2020-03-25 15:20 | Internal Med Progress Note ---
Subjective Physician Name Papa French Attending Physician Papa French MD Current Medications Medications (Trade) Dose Ordered Sig/Nick Route PRN Reason Start Time Stop Time Status Last Admin Dose Admin Acetaminophen (Tylenol) 650 mg Q4H PRN ORAL FEVER 03/18/20 14:00 04/17/20 13:59 Allopurinol (Zyloprim) 200 mg DAILY ORAL 03/19/20 09:00 04/18/20 08:59 03/25/20 09:24 Amlodipine Besylate (Norvasc) 2.5 mg DAILY ORAL 03/23/20 19:45 04/22/20 19:44 03/25/20 09:24 Carvedilol (Coreg) 6.25 mg EVERY 12 HOURS ORAL 03/22/20 09:00 04/17/20 20:59 03/23/20 22:03 Clonidine HCl (Catapres Tab) 0.1 mg Q4H PRN ORAL For High Blood Pressure 03/22/20 03:45 06/20/20 03:44 03/22/20 03:59 Dexamethasone Sodium Phosphate (Decadron 10mg/ ml Inj) 6 mg DAILY IV 03/23/20 09:00 03/28/20 08:59 03/25/20 09:23 Dextrose (Dextrose 50%) 25 ml Q30M PRN IV Hypoglycemia 03/18/20 14:00 06/16/20 13:59 Dextrose (Dextrose 50%) 50 ml Q30M PRN IV Hypoglycemia 03/18/20 14:00 06/16/20 13:59 Escitalopram Oxalate (Lexapro) 5 mg DAILY ORAL 03/19/20 09:00 04/18/20 08:59 03/25/20 09:24 Heparin Sodium (Porcine) (Heparin 5000 units/ml) 5,000 units EVERY 12 HOURS SUBQ 03/18/20 21:00 05/02/20 20:59 03/25/20 09:24 Hydralazine HCl (Apresoline) 25 mg Q8HR ORAL 03/24/20 09:00 06/20/20 08:59 03/25/20 13:53 Hydralazine HCl (Apresoline) 50 mg EVERY 8 HOURS PRN ORAL For High Blood Pressure 03/22/20 00:30 06/20/20 00:29 Insulin Aspart (NovoLOG) BEFORE MEALS AND HS SUBQ 03/18/20 16:30 06/16/20 16:29 03/25/20 05:49 Losartan Potassium (Cozaar) 50 mg EVERY 12 HOURS ORAL 03/22/20 15:00 04/21/20 14:59 03/25/20 09:24 Meropenem 1 gm/ Sodium Chloride 55 ml @ 110 mls/hr Q12HR@0400,1600 IVPB 03/21/20 16:00 03/27/20 23:59 03/25/20 05:11 Ondansetron HCl (Zofran) 4 mg Q6H PRN IVP Nausea & Vomiting 03/18/20 14:00 04/17/20 13:59 Polyethylene Glycol (Miralax) 17 gm DAILYPRN PRN ORAL Constipation 03/18/20 14:00 04/17/20 13:59 03/22/20 17:26 Promethazine HCl/ Codeine (Phenergan with Codeine) 5 ml Q4H PRN ORAL For Cough 03/18/20 14:00 04/17/20 13:59 Sodium Chloride 1,000 ml @ 50 mls/hr Q20H IV 03/25/20 14:45 04/24/20 14:44 03/25/20 15:13 Allergies: Coded Allergies: No Known Allergies (Unverified , 09/17/12) Subjective awake, slow to respond, poor oral intake, in COVID isolation room, BUN/creatinine = 21/1.0, sodium 134. Objective Last Vital Signs Date Time Temp Pulse Resp B/P (MAP) Pulse Ox O2 Delivery O2 Flow Rate FiO2 03/25/20 13:53 154/58 03/25/20 12:00 66 03/25/20 12:00 98.7 19 98 03/25/20 08:18 Nasal Cannula 2.0 03/24/20 20:17 28 Laboratory Tests Test 03/24/20 17:22 03/24/20 20:42 03/25/20 00:01 03/25/20 04:00 POC Whole Blood Glucose Pending 213 MG/DL (74-106) H Vancomycin Level Trough 18.8 ug/mL (5.0-12.0) H White Blood Count 10.6 K/UL (4.8-10.8) Red Blood Count 3.92 M/UL (4.20-5.40) L Hemoglobin 10.9 G/DL (12.0-16.0) L Hematocrit 33.6 % (37.0-47.0) L Mean Corpuscular Volume 86 FL (80-99) Mean Corpuscular Hemoglobin 27.7 PG (27.0-31.0) Mean Corpuscular Hemoglobin Concent 32.3 G/DL (32.0-36.0) Red Cell Distribution Width 14.5 % (11.6-14.8) Platelet Count 354 K/UL (150-450) Mean Platelet Volume 4.9 FL (6.5-10.1) L Neutrophils (%) (Auto) 68.7 % (45.0-75.0) Lymphocytes (%) (Auto) 21.7 % (20.0-45.0) Monocytes (%) (Auto) 9.0 % (1.0-10.0) Eosinophils (%) (Auto) 0.0 % (0.0-3.0) Basophils (%) (Auto) 0.6 % (0.0-2.0) Sodium Level 134 MMOL/L (136-145) L Potassium Level 3.6 MMOL/L (3.5-5.1) Chloride Level 102 MMOL/L (98-107) Carbon Dioxide Level 28 MMOL/L (21-32) Anion Gap 4 mmol/L (5-15) L Blood Urea Nitrogen 21 mg/dL (7-18) H Creatinine 1.0 MG/DL (0.55-1.30) Estimat Glomerular Filtration Rate > 60 mL/min (>60) Glucose Level 156 MG/DL (74-106) H Calcium Level 8.9 MG/DL (8.5-10.1) Test 03/25/20 05:46 POC Whole Blood Glucose 166 MG/DL (74-106) H Microbiology Date/Time Source Procedure Growth Status 03/24/20 13:50 Stool Clostridium difficile Toxin Assay - Final Complete Intake and Output 03/24/20 03/25/20 19:00 07:00 Intake Total 360 ml 275 ml Output Total 650 ml 200 ml Balance -290 ml 75 ml Intake Oral 360 ml 120 ml IV Total 155 ml Output Urine Total 650 ml 200 ml Objective GENERAL: Awake, responsive, no acute distress. HEENT: Head and neck examination, pupils are equal and reactive to light. Extraocular muscles intact. Neck was supple. No JVD. LUNGS: decreased air at the bases, Decreased air in bases. HEART: S1, S2. Regular rhythm. No Murmur or gallops. ABDOMEN: Soft, nontender, nondistended. Mildly obese. EXTREMITIES: No cyanosis, clubbing, or edema. NEUROLOGIC: Cranial nerves II through XII grossly intact. moving all extremities. RECTAL: Refused and deferred. GENITOURINARY: Refused and deferred. Assessment/Plan Assessment/Plan ASSESSMENT: 1. COVID-19 pneumonia. 2. Acute hypoxemic respiratory failure. 3. Low-grade fever, possible due to the pneumonia. 4. Possible urinary tract infection. 5. Congestive heart failure, chronic. 6. Obesity. 7. Hypertension. 8. Diabetes type 2. 9. History of CVA. 10. UTI=ESBL E. Coli PLAN: In monitored unit. DVT prophylaxis=heparin subcutaneous. Code status is Full Code. Dr. Calli Lux=Pulmonary Critical Care Dr. [place] = Infectious Disease -Meropenem #5/7 for ESBL UTI -Decadron #8/10 -03/24/20 SP Remdesivir #5/5 -start normal saline at 50 cc/h Papa French MD Mar 25, 2020 15:20
--- NOTE | 2020-03-25 15:38 | NUR ---
CASE MANAGEMENT:REVIEW 03/25/20 SI: COVID PNA T~99.3 HR~52 SAT 98% ON 2L IS: IVF@50/HR IV MEROPENEM Q12 HYDRALAZINE PO Q8HRS NORVASC PO QD IV DECADRON QD COZAAR PO Q12 COREG PO Q12 HEPARIN SQ Q12 : TELEMETRY STATUS DCP: FROM [facility] PLAN: MONITOR SINUS BRADYCARDIA
[2020-03-25 16:00] VITALS: BP 151/59
--- NOTE | 2020-03-25 19:25 | NUR ---
NURSE NOTES: RECEIVED REPORT FROM PRITESH CORDERO. PATIENT ASLEEP IN BED, EASILY AROUSABLE TO VOICE AND OPENS EYES SPONTANEOUSLY, VERBALLY RESPONSIVE, OX1-2. PATIENT IN SUPINE POSITION, WITH BREATHING EVEN AND UNLABORED ON 2LPM VIA NC, NO S/SX OF DISTRESS NOTED. NO COMPLAINTS OF PAIN OR DISCOMFORT AT THIS TIME. IV SITE ON RFA PATENT, INTACT, ASYMPTOMATIC, WITH IVF RUNNING PRESCRIBED. FALL AND ASPIRATION PRECAUTIONS IN PLACE. CONTACT AND DROPLET ISOLATION IMPLEMENTED. BED LOCKED AND IN LOWEST POSITION, SIDERAILS UP X 3. CALL LIGHT WITHIN REACH, WILL CONTINUE TO MONITOR PER POC. Addendum: 03/25/20 at 2155 by Gloria Donovan RN IV SITE LFA
[2020-03-25 20:00] VITALS: BP 158/79
--- NOTE | 2020-03-25 21:00 | NUR ---
NURSE NOTES: BS 258, INSULIN HELD PATIENT IS NOT EATING. PATIENT IS ASYMPTOMATIC.
[2020-03-26] VITALS: BP 152/58
--- NOTE | 2020-03-26 | NUR ---
NURSE NOTES: BS RECHECKED- 137. PATIENT ASYMPTOMATIC.
--- NOTE | 2020-03-26 00:30 | NUR ---
NURSE NOTES: PATIENT HR 46. PATIENT ASLEEP. ONCE AWAKE, PATIENT'S HR WENT UP TO 55- PATIENT ASYMPTOMATIC. WILL CONTINUE TO MONITOR. Addendum: 03/26/20 at 0157 by Gloria Donovan RN [address]. CUI PREVIOUSLY MADE AWARE OF HR GOING DOWN TO THE 40S.
[2020-03-26] MEDS: Meropenem 1gm/NS 55ml IVPB SCH ×4 (03:40→16:00)
[2020-03-26 04:00] VITALS: BP 154/58
--- NOTE | 2020-03-26 04:30 | NUR ---
NURSE NOTES: TEMPERATURE NOTED TO BE 99.3F (AXILLARY)- COOLING MEASURES INITIATED.
[2020-03-26] MEDS: HydrALAZINE 25mg tab ORAL SCH ×3 (05:22→21:12)
[2020-03-26] MEDS: NovoLOG Insulin Flexpen SUBQ SCH ×4 (06:30→21:00)
--- NOTE | 2020-03-26 07:20 | NUR ---
NURSE HAND-OFF REPORT: Important Events on Shift: REFUSAL TO TAKE MEDICATIONS Patient Status: STABLE Diet: CCHO MEDIUM Pending Orders: N/A Pending Results/Labs:N/A Pending MD notification: DECREASED PO INTAKE Latest Vital Signs: Temperature 99.5 , Pulse 62 , B/P 154 /58 , Respiratory Rate 18 , O2 SAT 100 , Nasal Cannula, O2 Flow Rate 2.0 . Vital Sign Comment: STABLE, COOLING MEASURES APPLIED EKG Rhythm: Sinus Rhythm Rhythm change?: N Notified?: N -Dr Jose J BADILLO Response: No New Orders Received Latest Garcia Fall Score: 70 Fall Risk: High Risk Safety Measures: Call light Within Reach, Bed Alarm Zone 1, Side Rails Side Rails x3, Bed position Low and Locked. Fall Precautions: Yellow Socks Yellow Gown Door Sign Patient Fall Education Report given to PRITESH CORDERO.
--- NOTE | 2020-03-26 07:21 | Infectious Diseases Prog Note ---
Assessment/Plan Assessment: COVID19 Pneumonia(dx'ed 03/15) Acute hypoxic resp failure- sp NC, now on 2 Lit O2 -03/22 CXR: Cardiomegaly. Decreased and now minimal interstitial congestion -03/21 CXR: Suspect slightly increased interstitial congestion. Cardiomegaly -03/18 rapid COVID PCR + CXR: Possible early infiltrate right midlung. Low grade fever, recurrent No leukocytosis Probable UTI -u/a wbc 60-80, nit +, leuk +3; ucx >100k ESBL E.coli, 20-30k GNR Gram positive bacteremia - Likely contaminants -03/21 Bcx p -03/18 Bcx 1/4 S. warneri, 07/04 S. hominis; 03/20 Bcx 1/4 S.auricularis; 03/21 Bcx NTD CHF obesity HTN Dm2 CVA Plan: -Meropenem #6/7 for ESBL UTI -Decadron #9/10 - 03/25/20 SP IV Vancomcyin #9 - 03/24/20 SP Remdesivir #/5 -03/22 SP Azithromycin #6 -03/20 SP Cefepime #4 -03/18 SP Ceftriaxone x1 -f/u cx -Monitor CBC/CMP, temperatures -COVID19 isolation - f/u repeat Bcx Thank you for this consult. [facility] will continue to follow. Subjective Allergies: Coded Allergies: No Known Allergies (Unverified , 09/17/12) AF 2L NC NAD Objective Last 24 Hour Vital Signs Date Time Temp Pulse Resp B/P (MAP) Pulse Ox O2 Delivery O2 Flow Rate FiO2 03/26/20 05:22 154/58 03/26/20 04:00 99.5 62 18 154/58 (90) 100 03/26/20 04:00 62 03/26/20 00:00 98.8 56 20 152/58 (89) 100 03/26/20 00:00 46 03/25/20 21:21 142/68 03/25/20 21:06 158/79 03/25/20 21:05 63 158/79 03/25/20 21:00 Nasal Cannula 2.0 03/25/20 20:00 58 03/25/20 20:00 98.6 63 18 158/79 (105) 98 9/25/20 16:00 98.5 60 18 151/59 (89) 97 03/25/20 16:00 61 03/25/20 13:53 154/58 03/25/20 12:00 66 03/25/20 12:00 98.7 54 19 154/58 (90) 98 03/25/20 09:24 52 150/48 03/25/20 09:24 150/48 03/25/20 09:00 52 150/48 03/25/20 08:18 Nasal Cannula 2.0 03/25/20 08:00 52 03/25/20 08:00 99.3 52 20 150/48 (82) 98 Height (Feet): 5 Height (Inches): 5.00 Weight (Pounds): 225 Gen: NAD in bed HEENT: NCAT, EOMI, PERRL Pulm: BL chest rise Abd: Soft, NTND Ext: No c/c/e Neuro: Awake Microbiology Date/Time Source Procedure Growth Status 03/24/20 13:50 Stool Clostridium difficile Toxin Assay - Final Complete Laboratory Tests Test 03/25/20 21:12 POC Whole Blood Glucose 258 MG/DL (74-106) H Current Medications Medications (Trade) Dose Ordered Sig/Nick Route PRN Reason Start Time Stop Time Status Last Admin Dose Admin Acetaminophen (Tylenol) 650 mg Q4H PRN ORAL FEVER 03/18/20 14:00 04/17/20 13:59 Allopurinol (Zyloprim) 200 mg DAILY ORAL 03/19/20 09:00 04/18/20 08:59 03/25/20 09:24 Amlodipine Besylate (Norvasc) 2.5 mg DAILY ORAL 03/23/20 19:45 04/22/20 19:44 03/25/20 09:24 Carvedilol (Coreg) 6.25 mg EVERY 12 HOURS ORAL 03/22/20 09:00 04/17/20 20:59 03/25/20 21:05 Clonidine HCl (Catapres Tab) 0.1 mg Q4H PRN ORAL For High Blood Pressure 03/22/20 03:45 06/20/20 03:44 03/22/20 03:59 Dexamethasone Sodium Phosphate (Decadron 10mg/ ml Inj) 6 mg DAILY IV 03/23/20 09:00 03/28/20 08:59 03/25/20 09:23 Dextrose (Dextrose 50%) 25 ml Q30M PRN IV Hypoglycemia 03/18/20 14:00 06/16/20 13:59 Dextrose (Dextrose 50%) 50 ml Q30M PRN IV Hypoglycemia 03/18/20 14:00 06/16/20 13:59 Escitalopram Oxalate (Lexapro) 5 mg DAILY ORAL 03/19/20 09:00 04/18/20 08:59 03/25/20 09:24 Heparin Sodium (Porcine) (Heparin 5000 units/ml) 5,000 units EVERY 12 HOURS SUBQ 03/18/20 21:00 05/02/20 20:59 03/25/20 21:07 Hydralazine HCl (Apresoline) 25 mg Q8HR ORAL 03/24/20 09:00 06/20/20 08:59 03/26/20 05:22 Hydralazine HCl (Apresoline) 50 mg EVERY 8 HOURS PRN ORAL For High Blood Pressure 03/22/20 00:30 06/20/20 00:29 Insulin Aspart (NovoLOG) BEFORE MEALS AND HS SUBQ 03/18/20 16:30 06/16/20 16:29 03/25/20 05:49 Losartan Potassium (Cozaar) 50 mg EVERY 12 HOURS ORAL 03/22/20 15:00 04/21/20 14:59 03/25/20 21:06 Meropenem 1 gm/ Sodium Chloride 55 ml @ 110 mls/hr Q12HR@0400,1600 IVPB 03/21/20 16:00 03/27/20 23:59 03/26/20 03:40 Ondansetron HCl (Zofran) 4 mg Q6H PRN IVP Nausea & Vomiting 03/18/20 14:00 04/17/20 13:59 Polyethylene Glycol (Miralax) 17 gm DAILYPRN PRN ORAL Constipation 03/18/20 14:00 04/17/20 13:59 03/22/20 17:26 Promethazine HCl/ Codeine (Phenergan with Codeine) 5 ml Q4H PRN ORAL For Cough 03/18/20 14:00 04/17/20 13:59 Sodium Chloride 1,000 ml @ 50 mls/hr Q20H IV 03/25/20 14:45 04/24/20 14:44 03/25/20 15:13 Marilee Quintana M.D. Mar 26, 2020 07:21
--- NOTE | 2020-03-26 07:45 | NUR ---
NURSE NOTES: Pt is awake, lethargic, only responds after continued loud voice, O x name only, breathing easily on 2 lpm nasal cannula, denies SOB and denies pain at this time. Vital signs stable with SR at 60 on monitor. Pt is refusing to eat more than a spoon of breakfast. IV access left forearm with NS running @ 50 ml/hr. Purewick in place, patent, draining clear yellow urine into collection canister. Bed left in low position, side rails up x 3 and call light left near pt's hand.
[2020-03-26 08:00] VITALS: BP 171/59
--- NOTE | 2020-03-26 08:03 | Pulmonology Progress Note ---
Subjective ROS Limited/Unobtainable: Yes Constitutional: Reports: no symptoms HEENT: Repors: no symptoms Respiratory: Reports: no symptoms Allergies: Coded Allergies: No Known Allergies (Unverified , 09/17/12) Subjective remains afebrile, no leukocytosis no signs of resp distress on O2 via NC Objective Last 24 Hour Vital Signs Date Time Temp Pulse Resp B/P (MAP) Pulse Ox O2 Delivery O2 Flow Rate FiO2 03/26/20 05:22 154/58 03/26/20 04:00 99.5 62 18 154/58 (90) 100 03/26/20 04:00 62 03/26/20 00:00 98.8 56 20 152/58 (89) 100 03/26/20 00:00 46 03/25/20 21:21 142/68 03/25/20 21:06 158/79 03/25/20 21:05 63 158/79 03/25/20 21:00 Nasal Cannula 2.0 03/25/20 20:00 58 03/25/20 20:00 98.6 63 18 158/79 (105) 98 03/25/20 16:00 98.5 60 18 151/59 (89) 97 03/25/20 16:00 61 03/25/20 13:53 154/58 03/25/20 12:00 66 03/25/20 12:00 98.7 54 19 154/58 (90) 98 03/25/20 09:24 52 150/48 03/25/20 09:24 150/48 03/25/20 09:00 52 150/48 03/25/20 08:18 Nasal Cannula 2.0 Intake and Output 03/25/20 03/26/20 19:00 07:00 Intake Total 189.1 ml 600 ml Balance 189.1 ml 600 ml IV Total 189.1 ml 600 ml # Voids 3 2 General Appearance: WD/WN, no acute distress HEENT: normocephalic, atraumatic Respiratory: chest wall non-tender, lungs clear Cardiovascular: normal peripheral pulses, normal rate Abdomen: normal bowel sounds Genitourinary: normal external genitalia Extremities: pedal pulses normal Skin: no rash Neurologic: bat boy/girl II-XII grossly normal, alert, responsive Musculoskeletal: normal muscle bulk Microbiology Date/Time Source Procedure Growth Status 03/24/20 13:50 Stool Clostridium difficile Toxin Assay - Final Complete Laboratory Tests 03/25/20 21:12: POC Whole Blood Glucose 258H Current Medications Medications (Trade) Dose Ordered Sig/Nick Route PRN Reason Start Time Stop Time Status Last Admin Dose Admin Acetaminophen (Tylenol) 650 mg Q4H PRN ORAL FEVER 03/18/20 14:00 04/17/20 13:59 Allopurinol (Zyloprim) 200 mg DAILY ORAL 03/19/20 09:00 04/18/20 08:59 03/25/20 09:24 Amlodipine Besylate (Norvasc) 2.5 mg DAILY ORAL 03/23/20 19:45 04/22/20 19:44 03/25/20 09:24 Carvedilol (Coreg) 6.25 mg EVERY 12 HOURS ORAL 03/22/20 09:00 04/17/20 20:59 03/25/20 21:05 Clonidine HCl (Catapres Tab) 0.1 mg Q4H PRN ORAL For High Blood Pressure 03/22/20 03:45 06/20/20 03:44 03/22/20 03:59 Dexamethasone Sodium Phosphate (Decadron 10mg/ ml Inj) 6 mg DAILY IV 03/23/20 09:00 03/28/20 08:59 03/25/20 09:23 Dextrose (Dextrose 50%) 25 ml Q30M PRN IV Hypoglycemia 03/18/20 14:00 06/16/20 13:59 Dextrose (Dextrose 50%) 50 ml Q30M PRN IV Hypoglycemia 03/18/20 14:00 06/16/20 13:59 Escitalopram Oxalate (Lexapro) 5 mg DAILY ORAL 03/19/20 09:00 04/18/20 08:59 03/25/20 09:24 Heparin Sodium (Porcine) (Heparin 5000 units/ml) 5,000 units EVERY 12 HOURS SUBQ 03/18/20 21:00 05/02/20 20:59 03/25/20 21:07 Hydralazine HCl (Apresoline) 25 mg Q8HR ORAL 03/24/20 09:00 06/20/20 08:59 03/26/20 05:22 Hydralazine HCl (Apresoline) 50 mg EVERY 8 HOURS PRN ORAL For High Blood Pressure 03/22/20 00:30 06/20/20 00:29 Insulin Aspart (NovoLOG) BEFORE MEALS AND HS SUBQ 03/18/20 16:30 06/16/20 16:29 03/25/20 05:49 Losartan Potassium (Cozaar) 50 mg EVERY 12 HOURS ORAL 03/22/20 15:00 04/21/20 14:59 03/25/20 21:06 Meropenem 1 gm/ Sodium Chloride 55 ml @ 110 mls/hr Q12HR@0400,1600 IVPB 03/21/20 16:00 03/27/20 23:59 03/26/20 03:40 Ondansetron HCl (Zofran) 4 mg Q6H PRN IVP Nausea & Vomiting 03/18/20 14:00 04/17/20 13:59 Polyethylene Glycol (Miralax) 17 gm DAILYPRN PRN ORAL Constipation 03/18/20 14:00 04/17/20 13:59 03/22/20 17:26 Promethazine HCl/ Codeine (Phenergan with Codeine) 5 ml Q4H PRN ORAL For Cough 03/18/20 14:00 04/17/20 13:59 Sodium Chloride 1,000 ml @ 50 mls/hr Q20H IV 03/25/20 14:45 04/24/20 14:44 03/25/20 15:13 Assessment/Plan Assessment/Plan ASSESSMENT COVID-19 pneumonia Acute hypoxemic respiratory failure secondary to COVID infection UTI with E. coli ESBL and Klebsiella Hypertension Diabetes mellitus Chronic CHF with history of cardiomyopathy History of breast cancer Gout Major depressive disorder PLAN of CARE tele isolation O2 titrate to keep sat above 92% pulm toilet s/p remdesivir x 5 days continue steroids for total of 10 days fup with CXR abx as per ID recs UCX + E coli ESBL, Klebsiella, initial BCX likely contaminant; repeated BCX NGTD DVT prophylaxis fup with inflammatory markers a/tussive as needed guideline directed medical therapy with BB and ARB, monitor volumes; no need for diuretic at this time ; diuretic prn BP management with CCB , BB, ARB, and hydralazine continue allopurinol BS management with SSI supportive care continue Lexapro dietary eval given not eating or drinking case discussed and evaluated by supervising physician Angelina Alvarado TUBE ROLLER Mar 26, 2020 08:03
[2020-03-26] MEDS: Carvedilol 12.5mg tab ORAL SCH ×2 (09:00→21:11)
[2020-03-26] MEDS: Allopurinol 100mg Tab ORAL SCH (09:10)
[2020-03-26] MEDS: Losartan 50mg tab ORAL SCH ×2 (09:11→21:11)
[2020-03-26] MEDS: dexAMETHasone 10mg/ml Inj IV SCH (09:11)
[2020-03-26] MEDS: Heparin 5000 units/ml inj SUBQ SCH ×2 (09:12→21:14)
[2020-03-26 12:00] VITALS: BP 167/64
--- NOTE | 2020-03-26 12:20 | Internal Med Progress Note ---
Subjective Date of Service: Mar 26, 2020 Physician Name BessBk Attending Physician Papa French MD Current Medications Medications (Trade) Dose Ordered Sig/Nick Route PRN Reason Start Time Stop Time Status Last Admin Dose Admin Acetaminophen (Tylenol) 650 mg Q4H PRN ORAL FEVER 03/18/20 14:00 04/17/20 13:59 Allopurinol (Zyloprim) 200 mg DAILY ORAL 03/19/20 09:00 04/18/20 08:59 03/26/20 09:10 Amlodipine Besylate (Norvasc) 2.5 mg DAILY ORAL 03/23/20 19:45 04/22/20 19:44 03/26/20 09:10 Carvedilol (Coreg) 6.25 mg EVERY 12 HOURS ORAL 03/22/20 09:00 04/17/20 20:59 03/25/20 21:05 Clonidine HCl (Catapres Tab) 0.1 mg Q4H PRN ORAL For High Blood Pressure 03/22/20 03:45 06/20/20 03:44 03/22/20 03:59 Dexamethasone Sodium Phosphate (Decadron 10mg/ ml Inj) 6 mg DAILY IV 03/23/20 09:00 03/28/20 08:59 03/26/20 09:11 Dextrose (Dextrose 50%) 25 ml Q30M PRN IV Hypoglycemia 03/18/20 14:00 06/16/20 13:59 Dextrose (Dextrose 50%) 50 ml Q30M PRN IV Hypoglycemia 03/18/20 14:00 06/16/20 13:59 Escitalopram Oxalate (Lexapro) 5 mg DAILY ORAL 03/19/20 09:00 04/18/20 08:59 03/26/20 09:10 Heparin Sodium (Porcine) (Heparin 5000 units/ml) 5,000 units EVERY 12 HOURS SUBQ 03/18/20 21:00 05/02/20 20:59 03/26/20 09:12 Hydralazine HCl (Apresoline) 25 mg Q8HR ORAL 03/24/20 09:00 06/20/20 08:59 03/26/20 05:22 Hydralazine HCl (Apresoline) 50 mg EVERY 8 HOURS PRN ORAL For High Blood Pressure 03/22/20 00:30 06/20/20 00:29 Insulin Aspart (NovoLOG) BEFORE MEALS AND HS SUBQ 03/18/20 16:30 06/16/20 16:29 03/25/20 05:49 Losartan Potassium (Cozaar) 50 mg EVERY 12 HOURS ORAL 03/22/20 15:00 04/21/20 14:59 03/26/20 09:11 Meropenem 1 gm/ Sodium Chloride 55 ml @ 110 mls/hr Q12HR@0400,1600 IVPB 03/21/20 16:00 03/27/20 23:59 03/26/20 03:40 Ondansetron HCl (Zofran) 4 mg Q6H PRN IVP Nausea & Vomiting 03/18/20 14:00 04/17/20 13:59 Polyethylene Glycol (Miralax) 17 gm DAILYPRN PRN ORAL Constipation 03/18/20 14:00 04/17/20 13:59 03/22/20 17:26 Promethazine HCl/ Codeine (Phenergan with Codeine) 5 ml Q4H PRN ORAL For Cough 03/18/20 14:00 04/17/20 13:59 Sodium Chloride 1,000 ml @ 50 mls/hr Q20H IV 03/25/20 14:45 04/24/20 14:44 03/26/20 10:45 Allergies: Coded Allergies: No Known Allergies (Unverified , 09/17/12) ROS Limited/Unobtainable: Yes Subjective 74 YO F admitted with fever. Now COVID 19 positive and pneumonia. Cover for Int Med-Dr French Objective Last Vital Signs Date Time Temp Pulse Resp B/P (MAP) Pulse Ox O2 Delivery O2 Flow Rate FiO2 03/26/20 09:11 154/58 03/26/20 09:10 62 03/26/20 08:00 96.4 20 100 03/25/20 21:00 Nasal Cannula 2.0 03/24/20 20:17 28 Laboratory Tests Test 03/25/20 21:12 POC Whole Blood Glucose 258 MG/DL (74-106) H Microbiology Date/Time Source Procedure Growth Status 03/24/20 13:50 Stool Clostridium difficile Toxin Assay - Final Complete Intake and Output 03/25/20 03/26/20 19:00 07:00 Intake Total 189.1 ml 600 ml Balance 189.1 ml 600 ml IV Total 189.1 ml 600 ml # Voids 3 2 Objective PHYSICAL EXAMINATION: GENERAL: The patient awake, responsive, no acute distress. HEENT: Head and neck examination, pupils are equal and reactive to light. Extraocular muscles intact. Neck was supple. No JVD. LUNGS: Good air entry. Decreased air in bases. HEART: S1, S2. Regular rhythm. No gallops. ABDOMEN: Soft, nontender, nondistended. Mildly obese. EXTREMITIES: No cyanosis, clubbing, or edema. NEUROLOGIC: Cranial nerves II through XII grossly intact. The patient moving all extremities. RECTAL: Refused and deferred. GENITOURINARY: Refused and deferred. PSYCHIATRIC: Mood and affect is intact. Assessment/Plan Assessment/Plan ASSESSMENT: 1. COVID-19 pneumonia. 2. Acute hypoxemic respiratory failure. 3. Low-grade fever, possible due to the pneumonia. 4. Possible urinary tract infection. 5. Congestive heart failure, chronic. 6. Obesity. 7. Hypertension. 8. Diabetes type 2. 9. History of CVA. 10. UTI=ESBL E. Coli PLAN: 1. Admit the patient to monitored unit. 2. antibiotic=meropenem. S/P cefepime, vancomycin,and azithromycin 3. Continue Decadron IV. 4. Continue Remdesivir 5. DVT prophylaxis=heparin subcutaneous. 6. Code status is Full Code. 7. Dr. Calli Lux=Pulmonary Critical Care 8. Dr. Hernandez = Infectious Disease Bk Kellogg MD Mar 26, 2020 12:20
[2020-03-26 16:00] VITALS: BP 157/75
--- NOTE | 2020-03-26 17:43 | Cardiology Progress Note ---
Assessment/Plan Assessment/Plan The patient is bradycardic, but hemodynamically stable Subjective Subjective The patient is resting in bed, she reports feeling weak, no palpitations, no syn cope Objective Last 24 Hour Vital Signs Date Time Temp Pulse Resp B/P (MAP) Pulse Ox O2 Delivery O2 Flow Rate FiO2 03/26/20 16:00 61 03/26/20 14:00 167/64 03/26/20 12:00 98.6 55 18 167/64 (98) 98 03/26/20 12:00 67 03/26/20 09:11 154/58 03/26/20 09:10 62 154/58 03/26/20 09:00 60 154/58 03/26/20 09:00 Nasal Cannula 2.0 03/26/20 08:00 96.4 47 20 171/59 (96) 100 03/26/20 08:00 46 03/26/20 05:22 154/58 03/26/20 04:00 99.5 62 18 154/58 (90) 100 03/26/20 04:00 62 03/26/20 00:00 98.8 56 20 152/58 (89) 100 03/26/20 00:00 46 03/25/20 21:21 142/68 03/25/20 21:06 158/79 03/25/20 21:05 63 158/79 03/25/20 21:00 Nasal Cannula 2.0 03/25/20 20:00 58 03/25/20 20:00 98.6 63 18 158/79 (105) 98 General Appearance: other - looks ill EENT: PERRL/EOMI Neck: supple Cardiovascular: bradycardia, systolic murmur Respiratory/Chest: crackles/rales Abdomen: no mass Extremities: trace edema Intake and Output 03/25/20 03/26/20 19:00 07:00 Intake Total 189.1 ml 600 ml Balance 189.1 ml 600 ml IV Total 189.1 ml 600 ml # Voids 3 2 Laboratory Tests Test 03/25/20 21:12 POC Whole Blood Glucose 258 MG/DL (74-106) H Microbiology Date/Time Source Procedure Growth Status 03/24/20 13:50 Stool Clostridium difficile Toxin Assay - Final Complete Catie Dominguez MD Mar 26, 2020 17:43
[2020-03-26] MEDS ORDERED: Heparin1,000 units/500ml Premix(Conc:2 units/ml) IV SCH (18:15)
--- NOTE | 2020-03-26 19:10 | NUR ---
NURSE NOTES: Important Events on Shift: Received report from Michael Lucero RN. Pt is awake, oriented to place and name only, confused, in bed with eyes open. Pt is currently refusing meals, MD aware. PICC line placement on 03/28/20 r/t lack of PIV access. All IV meds on hold. Will continue plan of care and close monitoring. Patient Status: stable Diet: CCHO Med Pending Orders: collect OB stool and urine specimen Pending Results/Labs: BMP, CRP, CBC, CMP, Ferritin, Mag, Uric acid. Pending MD notification: none Latest Vital Signs: Temperature 98.8 , Pulse 59 , B/P 154 /65 , Respiratory Rate 20 , O2 SAT 94 , Nasal Cannula, O2 Flow Rate 2.0 . Vital Sign Comment: stable EKG Rhythm: Sinus Bradycardia Rhythm change?: N Notified?: N -Dr Jose J BADILLO Response: No New Orders Received Latest Garcia Fall Score: 70 Fall Risk: High Risk Safety Measures: Call light Within Reach, Bed Alarm Zone 1, Side Rails Side Rails x3, Bed position Low and Locked. Fall Precautions: Yellow Socks yes Yellow Gown yes Door Sign yes Patient Fall Education yes
[2020-03-26] MEDS ORDERED: Lidocaine 1% Plain 30 ml INJ SCH (19:30)
[2020-03-26 20:00] VITALS: BP 162/72
--- NOTE | 2020-03-26 21:00 | NUR ---
NURSE NOTES: Pt is currently refusing meals, novolog sliding scale held per protocol. Will continue to monitor closely.
[2020-03-27] VITALS: BP 154/65
[2020-03-27 04:00] VITALS: BP 165/82
[2020-03-27] MEDS: Meropenem 1gm/NS 55ml IVPB SCH ×6 (04:00→15:23)
[2020-03-27] MEDS: NovoLOG Insulin Flexpen SUBQ SCH ×4 (06:04→23:40)
[2020-03-27] MEDS: HydrALAZINE 25mg tab ORAL SCH ×3 (06:54→21:23)
[2020-03-27 07:14] LABS: EOSINOPHILS % (AUTO) 0.1 % (0.0-3.0); HEMATOCRIT 33.9 % (37.0-47.0); LYMPHOCYTES % (AUTO) 22.3 % (20.0-45.0); MEAN CORPUSCULAR VOLUME 85 FL (80-99); MONOCYTES % (AUTO) 10.8 % (1.0-10.0); NEUTROPHILS % (AUTO) 64.8 % (45.0-75.0); PLATELET COUNT 356 K/UL (150-450); RED BLOOD COUNT 3.98 M/UL (4.20-5.40); RED CELL DISTRIBUTION WIDTH 14.4 % (11.6-14.8); WHITE BLOOD COUNT 11.2 K/UL (4.8-10.8)
--- NOTE | 2020-03-27 07:14 | NUR ---
NURSE HAND-OFF REPORT: Important Events on Shift: Pt continues to refuse meals. Patient Status: stable Diet: CCHO med Pending Orders: none Pending Results/Labs: none Pending MD notification: none Latest Vital Signs: Temperature 99.1 , Pulse 46 , B/P 165 /82 , Respiratory Rate 18 , O2 SAT 98 , Nasal Cannula, O2 Flow Rate 2.0 . Vital Sign Comment: stable EKG Rhythm: Sinus Bradycardia Rhythm change?: N MD Notified?: N -Dr Jose J BADILLO Response: No New Orders Received Latest Garcia Fall Score: 70 Fall Risk: High Risk Safety Measures: Call light Within Reach, Bed Alarm Zone 1, Side Rails Side Rails x3, Bed position Low and Locked. Fall Precautions: Yellow Socks yes Yellow Gown yes Door Sign yes Patient Fall Education yes Report given to Michael Lucero RN
[2020-03-27 07:33] LABS: PHOSPHORUS 3.9 MG/DL (2.5-4.9)
[2020-03-27 07:48] LABS: ALANINE AMINOTRANSFERASE 46 U/L (12-78); ALBUMIN 3.1 G/DL (3.4-5.0); ALBUMIN/GLOBULIN RATIO 0.8 (1.0-2.7); ALKALINE PHOSPHATASE 105 U/L (46-116); ANION GAP 9 mmol/L (5-15); ASPARTATE AMINO TRANSFERASE 19 U/L (15-37); BILIRUBIN,TOTAL 0.6 MG/DL (0.2-1.0); BLOOD UREA NITROGEN 27 mg/dL (7-18); CALCIUM 9.2 MG/DL (8.5-10.1); CARBON DIOXIDE 28 MMOL/L (21-32); CHLORIDE 102 MMOL/L (98-107); FERRITIN 401 NG/ML (8-388); SODIUM 138 MMOL/L (136-145)
[2020-03-27 08:00] VITALS: BP 131/52
[2020-03-27] MEDS: Losartan 50mg tab ORAL SCH ×2 (09:31→21:13)
[2020-03-27] MEDS: dexAMETHasone 10mg/ml Inj IV SCH (09:31)
[2020-03-27] MEDS: Carvedilol 12.5mg tab ORAL SCH ×2 (09:32→21:00)
[2020-03-27] MEDS: Allopurinol 100mg Tab ORAL SCH (09:32)
[2020-03-27] MEDS: Heparin 5000 units/ml inj SUBQ SCH ×2 (09:34→21:24)
--- NOTE | 2020-03-27 09:51 | NUR ---
RD ASSESSMENT & RECOMMENDATIONS SEE CARE ACTIVITY FOR COMPLETE ASSESSMENT DAILY ESTIMATED NEEDS: Needs based on DM, OBESE/ 69kg abw 22-27 kcals/kg 6262-1776 total kcals 1-1.3 g protein/kg 69-89 g total protein 25-30 mL/kg 7204-2890 total fluid mLs NUTRITION DIAGNOSIS: Altered nutrition related lab values R/T DM + on steroidal med and HTN as evidenced by elev BGs (167 201 211), pt on Decadron, elev BPs (198/110). CURRENT DIET:CCHO MED PO DIET RECOMMENDATIONS: Maintain CCHO MED/ texture as tolerated ADDITIONAL RECOMMENDATIONS: * Standing wt as able for accurate CBW * Glucerna TID w/ poor PO + snacks as tolerated in b/ w meals * Monitor BGs, need for long acting insulin * Add LOW NA to diet once PO intake consistently >50% * Monitor lytes, replete as needed * Skin integrity: MVI x 1 + Vit C 250mg QD * Kcal count: poor intake, consider appetite stimulant -> Non oral feeds, temporarily, until appetite returns?
--- NOTE | 2020-03-27 11:20 | Pulmonology Progress Note ---
Subjective ROS Limited/Unobtainable: Yes Allergies: Coded Allergies: No Known Allergies (Unverified , 09/17/12) Subjective remains afebrile, mild leukocytosis this am no signs of resp distress on O2 via NC Objective Last 24 Hour Vital Signs Date Time Temp Pulse Resp B/P (MAP) Pulse Ox O2 Delivery O2 Flow Rate FiO2 03/27/20 09:32 48 131/52 03/27/20 09:32 48 131/52 03/27/20 09:31 131/52 03/27/20 09:00 Nasal Cannula 2.0 03/27/20 08:00 97.9 63 18 131/52 (78) 98 03/27/20 08:00 48 03/27/20 06:54 165/82 03/27/20 04:00 46 03/27/20 04:00 99.1 64 18 165/82 (109) 98 03/27/20 00:00 98.8 59 20 154/65 (94) 94 03/26/20 21:12 162/72 03/26/20 21:11 162/72 03/26/20 21:11 63 162/72 03/26/20 21:00 Nasal Cannula 2.0 03/26/20 20:00 51 03/26/20 20:00 98.6 63 20 162/72 (102) 96 03/26/20 16:00 98.8 68 18 157/75 (102) 99 03/26/20 16:00 61 03/26/20 14:00 167/64 03/26/20 12:00 98.6 55 18 167/64 (98) 98 03/26/20 12:00 67 Intake and Output 03/26/20 03/27/20 18:59 06:59 Intake Total 50 ml Balance 50 ml IV Total 50 ml # Voids 2 3 General Appearance: WD/WN, no acute distress HEENT: normocephalic, atraumatic Respiratory: chest wall non-tender, lungs clear Cardiovascular: normal peripheral pulses, normal rate Abdomen: normal bowel sounds Genitourinary: normal external genitalia Extremities: pedal pulses normal Skin: no rash 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: 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 grossly normal, alert, responsive Musculoskeletal: normal muscle bulk Microbiology Date/Time Source Procedure Growth Status 03/24/20 13:50 Stool Clostridium difficile Toxin Assay - Final Complete Laboratory Tests 03/27/20 06:23: White Blood Count 11.2H, Red Blood Count 3.98L, Hemoglobin 11.0L, Hematocrit 33.9L, Mean Corpuscular Volume 85, Mean Corpuscular Hemoglobin 27.8, Mean Corpuscular Hemoglobin Concent 32.5, Red Cell Distribution Width 14.4, Platelet Count 356, Mean Platelet Volume 6.1L, Neutrophils (%) (Auto) 64.8, Lymphocytes (%) (Auto) 22.3, Monocytes (%) (Auto) 10.8H, Eosinophils (%) (Auto) 0.1, Basophils (%) (Auto) 2.0, Sodium Level 138, Potassium Level 4.0, Chloride Level 102, Carbon Dioxide Level 28, Anion Gap 9, Blood Urea Nitrogen 27H, Creatinine 1.0, Estimat Glomerular Filtration Rate > 60, Glucose Level 215H, Osmolality 301, Uric Acid 2.7, Calcium Level 9.2, Phosphorus Level 3.9, Magnesium Level 2.3, Ferritin 401H, Total Bilirubin 0.6, Aspartate Amino Transf (AST/SGOT) 19, Alanine Aminotransferase (ALT/SGPT) 46, Alkaline Phosphatase 105, C-Reactive Protein, Quantitative 0.6, Total Protein 7.1, Albumin 3.1L, Globulin 4.0, Albumin/Globulin Ratio 0.8L Current Medications Medications (Trade) Dose Ordered Sig/Nick Route PRN Reason Start Time Stop Time Status Last Admin Dose Admin Acetaminophen (Tylenol) 650 mg Q4H PRN ORAL FEVER 03/18/20 14:00 04/17/20 13:59 Allopurinol (Zyloprim) 200 mg DAILY ORAL 03/19/20 09:00 04/18/20 08:59 03/27/20 09:32 Amlodipine Besylate (Norvasc) 2.5 mg DAILY ORAL 03/23/20 19:45 04/22/20 19:44 03/27/20 09:32 Carvedilol (Coreg) 6.25 mg EVERY 12 HOURS ORAL 03/22/20 09:00 04/17/20 20:59 03/27/20 09:32 Chlorhexidine Gluconate (Esther-Hex 2%) 1 applic DAILY@1999 TOPIC 03/28/20 20:00 06/26/20 19:59 Clonidine HCl (Catapres Tab) 0.1 mg Q4H PRN ORAL For High Blood Pressure 03/22/20 03:45 06/20/20 03:44 03/22/20 03:59 Dexamethasone Sodium Phosphate (Decadron 10mg/ ml Inj) 6 mg DAILY IV 03/23/20 09:00 03/28/20 08:59 03/27/20 09:31 Dextrose (Dextrose 50%) 25 ml Q30M PRN IV Hypoglycemia 03/18/20 14:00 06/16/20 13:59 Dextrose (Dextrose 50%) 50 ml Q30M PRN IV Hypoglycemia 03/18/20 14:00 06/16/20 13:59 Escitalopram Oxalate (Lexapro) 5 mg DAILY ORAL 03/19/20 09:00 04/18/20 08:59 03/27/20 09:34 Heparin Sodium (Porcine) (Heparin 5000 units/ml) 5,000 units EVERY 12 HOURS SUBQ 03/18/20 21:00 05/02/20 20:59 03/27/20 09:34 Heparin Sodium/ Sodium Chloride (Heparin 1000 units/500ml Premix) 1,000 unit ONCE IV 03/26/20 18:15 03/28/20 23:59 Hydralazine HCl (Apresoline) 25 mg Q8HR ORAL 03/24/20 09:00 06/20/20 08:59 03/27/20 06:54 Hydralazine HCl (Apresoline) 50 mg EVERY 8 HOURS PRN ORAL For High Blood Pressure 03/22/20 00:30 06/20/20 00:29 Insulin Aspart (NovoLOG) BEFORE MEALS AND HS SUBQ 03/18/20 16:30 06/16/20 16:29 03/25/20 05:49 Lidocaine HCl (Xylocaine 1% 30ml) 30 ml ONCE INJ 03/26/20 19:30 03/28/20 23:59 Losartan Potassium (Cozaar) 50 mg EVERY 12 HOURS ORAL 03/22/20 15:00 04/21/20 14:59 03/27/20 09:31 Meropenem 1 gm/ Sodium Chloride 55 ml @ 110 mls/hr Q12HR@0400,1600 IVPB 03/21/20 16:00 03/27/20 23:59 03/26/20 03:40 Ondansetron HCl (Zofran) 4 mg Q6H PRN IVP Nausea & Vomiting 03/18/20 14:00 04/17/20 13:59 Polyethylene Glycol (Miralax) 17 gm DAILYPRN PRN ORAL Constipation 03/18/20 14:00 04/17/20 13:59 03/22/20 17:26 Promethazine HCl/ Codeine (Phenergan with Codeine) 5 ml Q4H PRN ORAL For Cough 03/18/20 14:00 04/17/20 13:59 Sodium Chloride 1,000 ml @ 50 mls/hr Q20H IV 03/25/20 14:45 04/24/20 14:44 03/26/20 10:45 Assessment/Plan Assessment/Plan ASSESSMENT COVID-19 pneumonia Acute hypoxemic respiratory failure secondary to COVID infection UTI with E. coli ESBL and Klebsiella Hypertension Diabetes mellitus Chronic CHF with history of cardiomyopathy History of breast cancer Gout Major depressive disorder PLAN of CARE tele isolation O2 titrate to keep sat above 92% pulm toilet s/p remdesivir x 5 days continue steroids for total of 10 days fup with CXR in am abx as per ID recs UCX + E coli ESBL, Klebsiella, initial BCX likely contaminant; repeated BCX NGTD DVT prophylaxis fup with inflammatory markers, CRP down to normal a/tussive as needed guideline directed medical therapy with BB and ARB, monitor volumes; no need for diuretic at this time ; diuretic prn BP management with CCB , BB, ARB, and hydralazine continue allopurinol BS management with SSI supportive care continue Lexapro dietary eval given not eating or drinking case discussed and evaluated by supervising physician Angelina Alvarado NP Mar 27, 2020 11:20
[2020-03-27 12:00] VITALS: BP 155/57
--- NOTE | 2020-03-27 12:59 | Internal Med Progress Note ---
Subjective Date of Service: Mar 27, 2020 Physician Name BessBk Attending Physician Papa French MD Current Medications Medications (Trade) Dose Ordered Sig/Nick Route PRN Reason Start Time Stop Time Status Last Admin Dose Admin Acetaminophen (Tylenol) 650 mg Q4H PRN ORAL FEVER 03/18/20 14:00 04/17/20 13:59 Allopurinol (Zyloprim) 200 mg DAILY ORAL 03/19/20 09:00 04/18/20 08:59 03/27/20 09:32 Amlodipine Besylate (Norvasc) 2.5 mg DAILY ORAL 03/23/20 19:45 04/22/20 19:44 03/27/20 09:32 Carvedilol (Coreg) 6.25 mg EVERY 12 HOURS ORAL 03/22/20 09:00 04/17/20 20:59 03/27/20 09:32 Chlorhexidine Gluconate (Esther-Hex 2%) 1 applic DAILY@2000 TOPIC 03/28/20 20:00 06/26/20 19:59 Clonidine HCl (Catapres Tab) 0.1 mg Q4H PRN ORAL For High Blood Pressure 03/22/20 03:45 06/20/20 03:44 03/22/20 03:59 Dexamethasone Sodium Phosphate (Decadron 10mg/ ml Inj) 6 mg DAILY IV 03/23/20 09:00 03/28/20 08:59 03/27/20 09:31 Dextrose (Dextrose 50%) 25 ml Q30M PRN IV Hypoglycemia 03/27/20 11:45 06/25/20 11:44 Dextrose (Dextrose 50%) 50 ml Q30M PRN IV Hypoglycemia 03/27/20 11:45 06/25/20 11:44 Escitalopram Oxalate (Lexapro) 5 mg DAILY ORAL 03/19/20 09:00 04/18/20 08:59 03/27/20 09:34 Heparin Sodium (Porcine) (Heparin 5000 units/ml) 5,000 units EVERY 12 HOURS SUBQ 03/18/20 21:00 05/02/20 20:59 03/27/20 09:34 Heparin Sodium/ Sodium Chloride (Heparin 1000 units/500ml Premix) 1,000 unit ONCE IV 03/26/20 18:15 03/28/20 23:59 Hydralazine HCl (Apresoline) 25 mg Q8HR ORAL 03/24/20 09:00 06/20/20 08:59 03/27/20 06:54 Hydralazine HCl (Apresoline) 50 mg EVERY 8 HOURS PRN ORAL For High Blood Pressure 03/22/20 00:30 06/20/20 00:29 Insulin Aspart (NovoLOG) Q6HR SUBQ 03/27/20 12:00 06/25/20 11:59 Lidocaine HCl (Xylocaine 1% 30ml) 30 ml ONCE INJ 03/26/20 19:30 03/28/20 23:59 Losartan Potassium (Cozaar) 50 mg EVERY 12 HOURS ORAL 03/22/20 15:00 04/21/20 14:59 03/27/20 09:31 Meropenem 1 gm/ Sodium Chloride 55 ml @ 110 mls/hr Q12HR@0400,1600 IVPB 03/21/20 16:00 03/27/20 23:59 03/26/20 03:40 Ondansetron HCl (Zofran) 4 mg Q6H PRN IVP Nausea & Vomiting 03/18/20 14:00 04/17/20 13:59 Polyethylene Glycol (Miralax) 17 gm DAILYPRN PRN ORAL Constipation 03/18/20 14:00 04/17/20 13:59 03/22/20 17:26 Promethazine HCl/ Codeine (Phenergan with Codeine) 5 ml Q4H PRN ORAL For Cough 03/18/20 14:00 04/17/20 13:59 Sodium Chloride 1,000 ml @ 50 mls/hr Q20H IV 03/25/20 14:45 04/24/20 14:44 03/26/20 10:45 Allergies: Coded Allergies: No Known Allergies (Unverified , 09/17/12) ROS Limited/Unobtainable: Yes Subjective 74 YO F admitted with fever. Now COVID 19 positive and pneumonia. Cover for Int Ambrocio-Dr French Objective Last Vital Signs Date Time Temp Pulse Resp B/P (MAP) Pulse Ox O2 Delivery O2 Flow Rate FiO2 03/27/20 12:00 47 03/27/20 12:00 98.4 18 155/57 (89) 99 03/27/20 09:00 Nasal Cannula 2.0 03/24/20 20:17 28 Laboratory Tests Test 03/27/20 06:23 03/27/20 11:55 White Blood Count 11.2 K/UL (4.8-10.8) H Red Blood Count 3.98 M/UL (4.20-5.40) L Hemoglobin 11.0 G/DL (12.0-16.0) L Hematocrit 33.9 % (37.0-47.0) L Mean Corpuscular Volume 85 FL (80-99) Mean Corpuscular Hemoglobin 27.8 PG (27.0-31.0) Mean Corpuscular Hemoglobin Concent 32.5 G/DL (32.0-36.0) Red Cell Distribution Width 14.4 % (11.6-14.8) Platelet Count 356 K/UL (150-450) Mean Platelet Volume 6.1 FL (6.5-10.1) L Neutrophils (%) (Auto) 64.8 % (45.0-75.0) Lymphocytes (%) (Auto) 22.3 % (20.0-45.0) Monocytes (%) (Auto) 10.8 % (1.0-10.0) H Eosinophils (%) (Auto) 0.1 % (0.0-3.0) Basophils (%) (Auto) 2.0 % (0.0-2.0) Sodium Level 138 MMOL/L (136-145) Potassium Level 4.0 MMOL/L (3.5-5.1) Chloride Level 102 MMOL/L (98-107) Carbon Dioxide Level 28 MMOL/L (21-32) Anion Gap 9 mmol/L (5-15) Blood Urea Nitrogen 27 mg/dL (7-18) H Creatinine 1.0 MG/DL (0.55-1.30) Estimat Glomerular Filtration Rate > 60 mL/min (>60) Glucose Level 215 MG/DL (74-106) H Osmolality 301 mOsm/kg (297-317) Uric Acid 2.7 MG/DL (2.6-7.2) Calcium Level 9.2 MG/DL (8.5-10.1) Phosphorus Level 3.9 MG/DL (2.5-4.9) Magnesium Level 2.3 MG/DL (1.8-2.4) Ferritin 401 NG/ML (8-388) H Total Bilirubin 0.6 MG/DL (0.2-1.0) Aspartate Amino Transf (AST/SGOT) 19 U/L (15-37) Alanine Aminotransferase (ALT/SGPT) 46 U/L (12-78) Alkaline Phosphatase 105 U/L (46-116) C-Reactive Protein, Quantitative 0.6 mg/dL (0.00-0.90) Total Protein 7.1 G/DL (6.4-8.2) Albumin 3.1 G/DL (3.4-5.0) L Globulin 4.0 g/dL Albumin/Globulin Ratio 0.8 (1.0-2.7) L POC Whole Blood Glucose 207 MG/DL (74-106) H Microbiology Date/Time Source Procedure Growth Status 03/24/20 13:50 Stool Clostridium difficile Toxin Assay - Final Complete Intake and Output 03/26/20 03/27/20 19:00 07:00 # Voids 2 3 Objective PHYSICAL EXAMINATION: GENERAL: The patient awake, responsive, no acute distress. HEENT: Head and neck examination, pupils are equal and reactive to light. Extraocular muscles intact. Neck was supple. No JVD. LUNGS: Good air entry. Decreased air in bases. HEART: S1, S2. Regular rhythm. No gallops. ABDOMEN: Soft, nontender, nondistended. Mildly obese. EXTREMITIES: No cyanosis, clubbing, or edema. NEUROLOGIC: Cranial nerves II through XII grossly intact. The patient moving all extremities. RECTAL: Refused and deferred. GENITOURINARY: Refused and deferred. PSYCHIATRIC: Mood and affect is intact. Assessment/Plan Assessment/Plan ASSESSMENT: 1. COVID-19 pneumonia. 2. Acute hypoxemic respiratory failure. 3. Low-grade fever, possible due to the pneumonia. 4. Possible urinary tract infection. 5. Congestive heart failure, chronic. 6. Obesity. 7. Hypertension. 8. Diabetes type 2. 9. History of CVA. 10. UTI=ESBL E. Coli PLAN: 1. Admit the patient to monitored unit. 2. antibiotic=meropenem. S/P cefepime, vancomycin,and azithromycin 3. Continue Decadron IV. 4. Continue Remdesivir 5. DVT prophylaxis=heparin subcutaneous. 6. Code status is Full Code. 7. Dr. Calli Lux=Pulmonary Critical Care 8. Dr. Hernandez = Infectious Disease Bk Kellogg MD Mar 27, 2020 12:59
[2020-03-27 16:00] VITALS: BP 159/72
--- NOTE | 2020-03-27 18:43 | NUR ---
NURSE HAND-OFF REPORT: Important Events on Shift:Spiked mild temperature, treated with acetaminophen, oral temp=98.6, established IV access on left forearm 24 gauge, obtained consent from daughter for PICC line. Extremely poor appetite. Patient Status: Stable Diet: CCHO Medium. Pending Orders: PICC placement. Consent signed by daughter. Pending Results/Labs:03/28/20 CBC, BMP. Pending MD notification:N/A Latest Vital Signs: Temperature 98.6 , Pulse 53 , B/P 159 /72 , Respiratory Rate 18 , O2 SAT 98 , Nasal Cannula, O2 Flow Rate 2.0 . Vital Sign Comment: N/A EKG Rhythm: Sinus Bradycardia Rhythm change?: N Notified?: N -Dr Jose J BADILLO Response: No New Orders Received Latest Garcia Fall Score: 70 Fall Risk: High Risk Safety Measures: Call light Within Reach, Bed Alarm Zone 1, Side Rails Side Rails x3, Bed position Low and Locked. Fall Precautions: Yellow Socks Yellow Gown Door Sign Patient Fall Education Report given to Oncoming staff. Addendum: 03/27/20 at 1928 by MAXWELL PECK RN Report given to Latrice Bailey RN.
--- NOTE | 2020-03-27 19:00 | NUR ---
NURSE NOTES: Received report from PRITESH Maldonado. Patient is on bed, alert and oriented x 1. monitor tech is in place, shows sinus bradycardia. With oxygen via nasal cannula @ 2 Lpm. IV sine is on left wrist g-24, running fluid of NS @ 50 cc/hour that is patent and intact. Patient is bedbound. On CCHO (Medium). Safety measures are in place, bed in lowest and locked position, side rails up x 2. Will continue plan of care.
[2020-03-27 20:00] VITALS: BP 157/59
--- NOTE | 2020-03-27 21:15 | Cardiology Progress Note ---
Assessment/Plan Assessment/Plan no significant changes, stable, bradycardia is stable Subjective Subjective The patient is sleeping, arousable, she reports feeling weak, no palpitations, no syncope Objective Last 24 Hour Vital Signs Date Time Temp Pulse Resp B/P (MAP) Pulse Ox O2 Delivery O2 Flow Rate FiO2 03/27/20 17:58 98.6 03/27/20 16:00 99.3 58 18 159/72 (101) 98 03/27/20 16:00 53 03/27/20 13:19 155/57 03/27/20 12:00 47 03/27/20 12:00 98.4 64 18 155/57 (89) 99 03/27/20 09:32 48 131/52 03/27/20 09:32 48 131/52 03/27/20 09:31 131/52 03/27/20 09:00 Nasal Cannula 2.0 03/27/20 08:00 97.9 63 18 131/52 (78) 98 03/27/20 08:00 48 03/27/20 06:54 165/82 03/27/20 04:00 46 03/27/20 04:00 99.1 64 18 165/82 (109) 98 03/27/20 00:00 98.8 59 20 154/65 (94) 94 General Appearance: mild distress EENT: PERRL/EOMI Neck: no JVD Rhythm: SB Cardiovascular: bradycardia, systolic murmur Respiratory/Chest: crackles/rales Abdomen: no organomegaly Extremities: no swelling Intake and Output 03/26/20 03/27/20 19:00 07:00 Intake Total 50 ml Balance 50 ml IV Total 50 ml # Voids 2 3 Laboratory Tests Test 03/27/20 06:23 03/27/20 11:55 03/27/20 17:25 White Blood Count 11.2 K/UL (4.8-10.8) H Red Blood Count 3.98 M/UL (4.20-5.40) L Hemoglobin 11.0 G/DL (12.0-16.0) L Hematocrit 33.9 % (37.0-47.0) L Mean Corpuscular Volume 85 FL (80-99) Mean Corpuscular Hemoglobin 27.8 PG (27.0-31.0) Mean Corpuscular Hemoglobin Concent 32.5 G/DL (32.0-36.0) Red Cell Distribution Width 14.4 % (11.6-14.8) Platelet Count 356 K/UL (150-450) Mean Platelet Volume 6.1 FL (6.5-10.1) L Neutrophils (%) (Auto) 64.8 % (45.0-75.0) Lymphocytes (%) (Auto) 22.3 % (20.0-45.0) Monocytes (%) (Auto) 10.8 % (1.0-10.0) H Eosinophils (%) (Auto) 0.1 % (0.0-3.0) Basophils (%) (Auto) 2.0 % (0.0-2.0) Sodium Level 138 MMOL/L (136-145) Potassium Level 4.0 MMOL/L (3.5-5.1) Chloride Level 102 MMOL/L (98-107) Carbon Dioxide Level 28 MMOL/L (21-32) Anion Gap 9 mmol/L (5-15) Blood Urea Nitrogen 27 mg/dL (7-18) H Creatinine 1.0 MG/DL (0.55-1.30) Estimat Glomerular Filtration Rate > 60 mL/min (>60) Glucose Level 215 MG/DL (74-106) H Osmolality 301 mOsm/kg (297-317) Uric Acid 2.7 MG/DL (2.6-7.2) Calcium Level 9.2 MG/DL (8.5-10.1) Phosphorus Level 3.9 MG/DL (2.5-4.9) Magnesium Level 2.3 MG/DL (1.8-2.4) Ferritin 401 NG/ML (8-388) H Total Bilirubin 0.6 MG/DL (0.2-1.0) Aspartate Amino Transf (AST/SGOT) 19 U/L (15-37) Alanine Aminotransferase (ALT/SGPT) 46 U/L (12-78) Alkaline Phosphatase 105 U/L (46-116) C-Reactive Protein, Quantitative 0.6 mg/dL (0.00-0.90) Total Protein 7.1 G/DL (6.4-8.2) Albumin 3.1 G/DL (3.4-5.0) L Globulin 4.0 g/dL Albumin/Globulin Ratio 0.8 (1.0-2.7) L POC Whole Blood Glucose 207 MG/DL (74-106) H Pending Catie Dominguez MD Mar 27, 2020 21:15
[2020-03-28] VITALS: BP 137/59
[2020-03-28 04:00] VITALS: BP 138/66
[2020-03-28] MEDS: HydrALAZINE 25mg tab ORAL SCH ×4 (05:55→22:25)
[2020-03-28] MEDS: NovoLOG Insulin Flexpen SUBQ SCH ×3 (06:00→18:14)
[2020-03-28] MEDS: Heparin 5000 units/ml inj SUBQ SCH ×2 (07:04→21:01)
[2020-03-28 07:28] LABS: BASOPHILS % (AUTO) 1.3 % (0.0-2.0); EOSINOPHILS % (AUTO) 1.8 % (0.0-3.0); HEMATOCRIT 33.9 % (37.0-47.0); LYMPHOCYTES % (AUTO) 27.9 % (20.0-45.0); MEAN CORPUSCULAR VOLUME 87 FL (80-99); MONOCYTES % (AUTO) 10.7 % (1.0-10.0); NEUTROPHILS % (AUTO) 58.3 % (45.0-75.0); PLATELET COUNT 311 K/UL (150-450); RED BLOOD COUNT 3.91 M/UL (4.20-5.40); RED CELL DISTRIBUTION WIDTH 14.4 % (11.6-14.8); WHITE BLOOD COUNT 11.7 K/UL (4.8-10.8)
--- NOTE | 2020-03-28 07:30 | NUR ---
NURSE HAND-OFF REPORT: Important Events on Shift: Patient has been resting well the whole shift Patient Status: Patient is awake on bed in stab el condition, plan of care endorsed. Diet: CCHO (Medium) Pending Orders: none Pending Results/Labs:cbc, cmp Pending MD notification: Latest Vital Signs: Temperature 98.1 , Pulse 61 , B/P 154 /76 , Respiratory Rate 16 , O2 SAT 97 , Nasal Cannula, O2 Flow Rate 2.0 . Vital Sign Comment: stable EKG Rhythm: Sinus Rhythm Rhythm change?: Lauren BADILLO Notified?: N -Dr Jose J BADILLO Response: No New Orders Received Latest Garcia Fall Score: 70 Fall Risk: High Risk Safety Measures: Call light Within Reach, Bed Alarm Zone 1, Side Rails Side Rails x2, Bed position Low and Locked. Fall Precautions: Yellow Socks Yellow Gown Door Sign Patient Fall Education Report given to PRITESH Arango.
--- NOTE | 2020-03-28 07:32 | NUR ---
NURSE NOTES: Pt received from Fe Bailey. Pt in bed seeping, HOB at 30degrees. Breakfast tray is at bedside. No sign of pain or distress at this time. Bed low and locked. call light within reach. Heparin held since pt is getting PICC line later today.
[2020-03-28 07:33] LABS: ANION GAP 9 mmol/L (5-15); BLOOD UREA NITROGEN 25 mg/dL (7-18); CALCIUM 8.9 MG/DL (8.5-10.1); CARBON DIOXIDE 28 MMOL/L (21-32); CHLORIDE 106 MMOL/L (98-107); POTASSIUM 3.7 MMOL/L (3.5-5.1); SODIUM 142 MMOL/L (136-145)
[2020-03-28 08:00] VITALS: BP 145/60
[2020-03-28] MEDS: Carvedilol 12.5mg tab ORAL SCH ×2 (09:00→21:00)
--- NOTE | 2020-03-28 09:34 | NUR ---
NURSE NOTES: Coreg held because pt HR in 40's and low 50's
[2020-03-28] MEDS: Allopurinol 100mg Tab ORAL SCH (09:36)
[2020-03-28] MEDS: Losartan 50mg tab ORAL SCH ×2 (09:36→21:00)
--- NOTE | 2020-03-28 10:24 | Infectious Diseases Prog Note ---
Assessment/Plan Assessment: COVID19 Pneumonia(dx'ed 03/15) Acute hypoxic resp failure- sp NC, now on 2 Lit O2 -03/22 CXR: Cardiomegaly. Decreased and now minimal interstitial congestion -03/21 CXR: Suspect slightly increased interstitial congestion. Cardiomegaly -03/18 rapid COVID PCR + CXR: Possible early infiltrate right midlung. Low grade fever, recurrent No leukocytosis Probable UTI -u/a wbc 60-80, nit +, leuk +3; ucx >100k ESBL E.coli, 20-30k GNR Gram positive bacteremia - Likely contaminants -03/21 Bcx p -03/18 Bcx 1/4 S. warneri, 07/04 S. hominis; 03/20 Bcx 1/4 S.auricularis; 03/21 Bcx NTD CHF obesity HTN Dm2 CVA Plan: - Monitor off abx - 03/28/20 SP Decadron #10/10 - 03/27/20 SP Meropenem #7/7 for ESBL UTI - 03/25/20 SP IV Vancomcyin #9 - 03/24/20 SP Remdesivir #5/5 -03/22 SP Azithromycin #6 -03/20 SP Cefepime #4 -03/18 SP Ceftriaxone x1 -f/u cx -Monitor CBC/CMP, temperatures -COVID19 isolation - f/u repeat Bcx Thank you for this consult. [facility] will continue to follow. Subjective Allergies: Coded Allergies: No Known Allergies (Unverified , 09/17/12) Afebrile Still on 2L NC Mild leukocytosis Objective Last 24 Hour Vital Signs Date Time Temp Pulse Resp B/P (MAP) Pulse Ox O2 Delivery O2 Flow Rate FiO2 03/28/20 09:41 49 145/60 03/28/20 09:36 145/60 03/28/20 09:00 49 145/60 03/28/20 08:00 97.9 46 20 145/60 (88) 98 03/28/20 08:00 49 03/28/20 07:21 97 Nasal Cannula 2.0 03/28/20 05:55 154/76 03/28/20 04:00 98.1 59 16 138/66 (90) 100 03/28/20 04:00 61 03/28/20 00:00 99.0 45 18 137/59 (85) 99 03/28/20 00:00 46 03/27/20 21:23 151/59 03/27/20 21:13 151/59 03/27/20 21:00 57 151/59 03/27/20 21:00 Nasal Cannula 2.0 03/27/20 20:00 97.9 47 18 157/59 (91) 99 03/27/20 20:00 46 03/27/20 17:58 98.6 03/27/20 16:00 99.3 58 18 159/72 (101) 98 03/27/20 16:00 53 03/27/20 13:19 155/57 03/27/20 12:00 47 03/27/20 12:00 98.4 64 18 155/57 (89) 99 Height (Feet): 5 Height (Inches): 5.00 Weight (Pounds): 225 GENERAL: NAD HEENT: NCAT, MMM, EOMI LUNGS: Equal rise and fall of chest B/L no accessory muscle use ABDOMEN: Soft, nondistended Laboratory Tests Test 03/27/20 11:55 03/27/20 17:25 03/27/20 23:38 03/28/20 05:57 POC Whole Blood Glucose 207 MG/DL (74-106) H Pending Pending 116 MG/DL (74-106) H Test 03/28/20 06:00 White Blood Count 11.7 K/UL (4.8-10.8) H Red Blood Count 3.91 M/UL (4.20-5.40) L Hemoglobin 11.0 G/DL (12.0-16.0) L Hematocrit 33.9 % (37.0-47.0) L Mean Corpuscular Volume 87 FL (80-99) Mean Corpuscular Hemoglobin 28.1 PG (27.0-31.0) Mean Corpuscular Hemoglobin Concent 32.4 G/DL (32.0-36.0) Red Cell Distribution Width 14.4 % (11.6-14.8) Platelet Count 311 K/UL (150-450) Mean Platelet Volume 5.4 FL (6.5-10.1) L Neutrophils (%) (Auto) 58.3 % (45.0-75.0) Lymphocytes (%) (Auto) 27.9 % (20.0-45.0) Monocytes (%) (Auto) 10.7 % (1.0-10.0) H Eosinophils (%) (Auto) 1.8 % (0.0-3.0) Basophils (%) (Auto) 1.3 % (0.0-2.0) Sodium Level 142 MMOL/L (136-145) Potassium Level 3.7 MMOL/L (3.5-5.1) Chloride Level 106 MMOL/L (98-107) Carbon Dioxide Level 28 MMOL/L (21-32) Anion Gap 9 mmol/L (5-15) Blood Urea Nitrogen 25 mg/dL (7-18) H Creatinine 1.0 MG/DL (0.55-1.30) Estimat Glomerular Filtration Rate > 60 mL/min (>60) Glucose Level 117 MG/DL (74-106) H Calcium Level 8.9 MG/DL (8.5-10.1) Current Medications Medications (Trade) Dose Ordered Sig/Nick Route PRN Reason Start Time Stop Time Status Last Admin Dose Admin Acetaminophen (Tylenol) 650 mg Q4H PRN ORAL FEVER 03/18/20 14:00 04/17/20 13:59 03/27/20 17:28 Allopurinol (Zyloprim) 200 mg DAILY ORAL 03/19/20 09:00 04/18/20 08:59 03/28/20 09:36 Amlodipine Besylate (Norvasc) 2.5 mg DAILY ORAL 03/23/20 19:45 04/22/20 19:44 03/28/20 09:41 Carvedilol (Coreg) 6.25 mg EVERY 12 HOURS ORAL 03/22/20 09:00 04/17/20 20:59 03/27/20 09:32 Chlorhexidine Gluconate (Esther-Hex 2%) 1 applic DAILY@1999 TOPIC 03/28/20 20:00 06/26/20 19:59 Clonidine HCl (Catapres Tab) 0.1 mg Q4H PRN ORAL For High Blood Pressure 03/22/20 03:45 06/20/20 03:44 03/22/20 03:59 Dextrose (Dextrose 50%) 25 ml Q30M PRN IV Hypoglycemia 03/27/20 11:45 06/25/20 11:44 Dextrose (Dextrose 50%) 50 ml Q30M PRN IV Hypoglycemia 03/27/20 11:45 06/25/20 11:44 Escitalopram Oxalate (Lexapro) 5 mg DAILY ORAL 03/19/20 09:00 04/18/20 08:59 03/28/20 09:35 Heparin Sodium (Porcine) (Heparin 5000 units/ml) 5,000 units EVERY 12 HOURS SUBQ 03/18/20 21:00 05/02/20 20:59 03/27/20 21:24 Heparin Sodium/ Sodium Chloride (Heparin 1000 units/500ml Premix) 1,000 unit ONCE IV 03/26/20 18:15 03/28/20 23:59 Hydralazine HCl (Apresoline) 25 mg Q8HR ORAL 03/24/20 09:00 06/20/20 08:59 03/28/20 05:55 Hydralazine HCl (Apresoline) 50 mg EVERY 8 HOURS PRN ORAL For High Blood Pressure 03/22/20 00:30 06/20/20 00:29 Insulin Aspart (NovoLOG) Q6HR SUBQ 03/27/20 12:00 06/25/20 11:59 03/27/20 23:40 Lidocaine HCl (Xylocaine 1% 30ml) 30 ml ONCE INJ 03/26/20 19:30 03/28/20 23:59 Losartan Potassium (Cozaar) 50 mg EVERY 12 HOURS ORAL 03/22/20 15:00 04/21/20 14:59 03/28/20 09:36 Ondansetron HCl (Zofran) 4 mg Q6H PRN IVP Nausea & Vomiting 03/18/20 14:00 04/17/20 13:59 Polyethylene Glycol (Miralax) 17 gm DAILYPRN PRN ORAL Constipation 03/18/20 14:00 04/17/20 13:59 03/22/20 17:26 Promethazine HCl/ Codeine (Phenergan with Codeine) 5 ml Q4H PRN ORAL For Cough 03/18/20 14:00 04/17/20 13:59 Sodium Chloride 1,000 ml @ 50 mls/hr Q20H IV 03/25/20 14:45 04/24/20 14:44 03/26/20 10:45 Mio Oviedo MD Mar 28, 2020 10:24
--- NOTE | 2020-03-28 10:47 | NUR ---
Community Mental Health Worker: She is incredibly lethargic and sleeps constantly. Attempted to feed eggs, but she quickly refused. Gave her half a chocolate glucerna.
--- NOTE | 2020-03-28 11:50 | Pulmonology Progress Note ---
Subjective ROS Limited/Unobtainable: Yes Allergies: Coded Allergies: No Known Allergies (Unverified , 09/17/12) Objective Last 24 Hour Vital Signs Date Time Temp Pulse Resp B/P (MAP) Pulse Ox O2 Delivery O2 Flow Rate FiO2 03/28/20 09:41 49 145/60 03/28/20 09:36 145/60 03/28/20 09:00 49 145/60 03/28/20 09:00 Nasal Cannula 2.0 03/28/20 08:00 97.9 46 20 145/60 (88) 98 03/28/20 08:00 49 03/28/20 07:21 97 Nasal Cannula 2.0 28 03/28/20 05:55 154/76 03/28/20 04:00 98.1 59 16 138/66 (90) 100 03/28/20 04:00 61 03/28/20 00:00 99.0 45 18 137/59 (85) 99 03/28/20 00:00 46 03/27/20 21:23 151/59 03/27/20 21:13 151/59 03/27/20 21:00 57 151/59 03/27/20 21:00 Nasal Cannula 2.0 03/27/20 20:00 97.9 47 18 157/59 (91) 99 03/27/20 20:00 46 03/27/20 17:58 98.6 03/27/20 16:00 99.3 58 18 159/72 (101) 98 03/27/20 16:00 53 03/27/20 13:19 155/57 03/27/20 12:00 47 03/27/20 12:00 98.4 64 18 155/57 (89) 99 Intake and Output 03/27/20 03/28/20 19:00 07:00 Intake Total 620 ml Output Total 500 ml 450 ml Balance 120 ml -450 ml Intake Oral 220 ml IV Total 400 ml Output Urine Total 500 ml 450 ml # Voids 1 General Appearance: WD/WN, no acute distress HEENT: normocephalic, atraumatic Respiratory: chest wall non-tender, lungs clear Cardiovascular: normal peripheral pulses, normal rate Abdomen: normal bowel sounds Genitourinary: normal external genitalia Extremities: pedal pulses normal Skin: no rash Neurologic: director sales support II-XII grossly normal, alert, responsive Musculoskeletal: normal muscle bulk Laboratory Tests 03/27/20 11:55: POC Whole Blood Glucose 207H 03/27/20 17:25: POC Whole Blood Glucose [Pending] 03/27/20 23:38: POC Whole Blood Glucose [Pending] 03/28/20 05:57: POC Whole Blood Glucose 116H 03/28/20 06:00: White Blood Count 11.7H, Red Blood Count 3.91L, Hemoglobin 11.0L, Hematocrit 33.9L, Mean Corpuscular Volume 87, Mean Corpuscular Hemoglobin 28.1, Mean Corpuscular Hemoglobin Concent 32.4, Red Cell Distribution Width 14.4, Platelet Count 311, Mean Platelet Volume 5.4L, Neutrophils (%) (Auto) 58.3, Lymphocytes (%) (Auto) 27.9, Monocytes (%) (Auto) 10.7H, Eosinophils (%) (Auto) 1.8, Basophils (%) (Auto) 1.3, Sodium Level 142, Potassium Level 3.7, Chloride Level 106, Carbon Dioxide Level 28, Anion Gap 9, Blood Urea Nitrogen 25H, Creatinine 1.0, Estimat Glomerular Filtration Rate > 60, Glucose Level 117H, Calcium Level 8.9 Current Medications Medications (Trade) Dose Ordered Sig/Nick Route PRN Reason Start Time Stop Time Status Last Admin Dose Admin Acetaminophen (Tylenol) 650 mg Q4H PRN ORAL FEVER 03/18/20 14:00 04/17/20 13:59 03/27/20 17:28 Allopurinol (Zyloprim) 200 mg DAILY ORAL 03/19/20 09:00 04/18/20 08:59 03/28/20 09:36 Amlodipine Besylate (Norvasc) 2.5 mg DAILY ORAL 03/23/20 19:45 04/22/20 19:44 03/28/20 09:41 Carvedilol (Coreg) 6.25 mg EVERY 12 HOURS ORAL 03/22/20 09:00 04/17/20 20:59 03/27/20 09:32 Chlorhexidine Gluconate (Esther-Hex 2%) 1 applic DAILY@1999 TOPIC 03/28/20 20:00 06/26/20 19:59 Clonidine HCl (Catapres Tab) 0.1 mg Q4H PRN ORAL For High Blood Pressure 03/22/20 03:45 06/20/20 03:44 03/22/20 03:59 Dextrose (Dextrose 50%) 25 ml Q30M PRN IV Hypoglycemia 03/27/20 11:45 06/25/20 11:44 Dextrose (Dextrose 50%) 50 ml Q30M PRN IV Hypoglycemia 03/27/20 11:45 06/25/20 11:44 Escitalopram Oxalate (Lexapro) 5 mg DAILY ORAL 03/19/20 09:00 04/18/20 08:59 03/28/20 09:35 Heparin Sodium (Porcine) (Heparin 5000 units/ml) 5,000 units EVERY 12 HOURS SUBQ 03/18/20 21:00 05/02/20 20:59 03/27/20 21:24 Heparin Sodium/ Sodium Chloride (Heparin 1000 units/500ml Premix) 1,000 unit ONCE IV 03/26/20 18:15 03/28/20 23:59 Hydralazine HCl (Apresoline) 25 mg Q8HR ORAL 03/24/20 09:00 06/20/20 08:59 03/28/20 05:55 Hydralazine HCl (Apresoline) 50 mg EVERY 8 HOURS PRN ORAL For High Blood Pressure 03/22/20 00:30 06/20/20 00:29 Insulin Aspart (NovoLOG) Q6HR SUBQ 03/27/20 12:00 06/25/20 11:59 03/27/20 23:40 Lidocaine HCl (Xylocaine 1% 30ml) 30 ml ONCE INJ 03/26/20 19:30 03/28/20 23:59 Losartan Potassium (Cozaar) 50 mg EVERY 12 HOURS ORAL 03/22/20 15:00 04/21/20 14:59 03/28/20 09:36 Ondansetron HCl (Zofran) 4 mg Q6H PRN IVP Nausea & Vomiting 03/18/20 14:00 04/17/20 13:59 Polyethylene Glycol (Miralax) 17 gm DAILYPRN PRN ORAL Constipation 03/18/20 14:00 04/17/20 13:59 03/22/20 17:26 Promethazine HCl/ Codeine (Phenergan with Codeine) 5 ml Q4H PRN ORAL For Cough 03/18/20 14:00 04/17/20 13:59 Sodium Chloride 1,000 ml @ 50 mls/hr Q20H IV 03/25/20 14:45 04/24/20 14:44 03/26/20 10:45 Assessment/Plan Problems: (1) 2019 novel coronavirus disease (COVID-19) (2) UTI (urinary tract infection) (3) Diabetes mellitus (4) History of hypertension (5) Gout (6) HX: breast cancer (7) Major depression, recurrent (8) Bacteremia Assessment/Plan pt not eating or drinking, will order 48 hours calorie count swallow study ordered ? etiology of lethargy? repeat BC were negative low grade temp last night check cxr, 03/22, decreasing infiltrate Decreased and now minimal interstitial congestion respiratory isolation check urine culture sliding scale diabetic diet monitor BP Calli Lux MD Mar 28, 2020 11:50
[2020-03-28 12:00] VITALS: BP 134/63
[2020-03-28] MEDS ORDERED: Varibar Nectar 240ml MC PRN (13:45)
[2020-03-28] MEDS ORDERED: Varibar Honey 250ml MC PRN (13:45)
[2020-03-28] MEDS ORDERED: Varibar Thin Liquid powder 148gm MC PRN (13:45)
[2020-03-28] MEDS ORDERED: Varibar Pudding 230ml MC PRN (13:45)
--- NOTE | 2020-03-28 13:56 | NUR ---
Speech pathology Note (Dysphagia Evaluation) Indication of evaluation: Hx of CVA, rule out dysphagia with poor PO Brief Note: Ms. Champagne is a 74 year old female who is a resident of SNF admitted for COVID 19 on 03/18/2020. She was diagnosed on 03/17/2020, c.w hypoxia on 03/18, subsequently admitted. Her past medical history include CVA, depression anxiety, Left breast CA s/p mastectomy, Obesity, DMII, HTN, CHF, cardiomegaly. Her labs are stable except WBC elevated 11.7k with temp 98.2. Her respiratory function and CXR are stable with bilateral infiltrate, and satting at 97% on 2 liter. Findings: Ms. Champagne is alert and oriented x1. She follows simple commands with delay responses. her speech is slow but no dysarthria or apraxia. Her voice is intact, and cough is protective. Given her Po trial pt was able to demonstrate functional oropharyngeal motility and swallowing function. There is no overt s.s of aspiration at tis time. Interpretation: 1. Functional swallow 2. Underlying cognitively impaired Plan: 1. Resume regular diet 2 Supportive care/aspiration precaution No skilled therapy indicated at this time. Kaushik De La Paz
--- NOTE | 2020-03-28 15:43 | NUR ---
CASE MANAGEMENT: REVIEW SI: COVID-19 . PNA T 97.9 HR 46 RR 20 BP 145/60 SAT 98% NC/2L WBC 11.7 H/H 11.0/33.9 BUN 25 IS: HEPARIN SUBQ Q12HR NS IVF @ 50ML/HR SWALLOW EVAL CALORIE COUNT FOR POOR ORAL INTAKE TELEMETRY UNIT STATUS DCP: PATIENT IS FROM [facility]
[2020-03-28 16:00] VITALS: BP 150/65
--- NOTE | 2020-03-28 16:00 | NUR ---
RADIOLOGY NOTE: RIGHT UPPER EXTREMITY 2L PICC PLACED.
--- NOTE | 2020-03-28 16:31 | Diagnostic Imaging Report ---
Indication: Shortness of breath Technique: One view of the chest Comparison: 03/22/2020 Findings: Heart is enlarged. There is mild interstitial airspace edema bilaterally, increased somewhat from the prior exam. The pleural spaces are clear Impression: Cardiomegaly Bilateral interstitial and airspace edema, increased from prior study 03/22/2020
--- NOTE | 2020-03-28 17:24 | Brief Operative Note ---
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
--- NOTE | 2020-03-28 18:02 | Diagnostic Imaging Report ---
Indications: Needs long-term IV access Technique: Procedure performed at bedside. Procedural timeout performed. Ultrasound confirms patent compressible right basilic vein. Total sterile technique, including sterile probe cover and sterile gel, sterile gloves, hand hygiene, hat, mask,, sterile gown, large sterile drape, and preparation with 2% chlorhexidine utilized. Local anesthesia with 1% lidocaine. Under real-time ultrasound guidance, puncture basilic vein using 21-gauge needle, passage 0.018 guidewire, exchange for 4 Peruvian peel-away sheath. 4 [place]uv[place] Bard dual-lumen power PICC cut to 46 cm. It was inserted through the peel-away sheath. Peel-away sheath and guidewire removed. Catheter fixed to the skin. Both catheter ports aspirated and flushed. Patient tolerated procedure well, without immediate complication. Followup chest x-ray obtained, documents catheter tip position at the high right atrium Impression: Successful bedside placement of right arm PICC under sonographic guidance, as described above.
--- NOTE | 2020-03-28 19:02 | Internal Med Progress Note ---
Subjective Date of Service: Mar 28, 2020 Physician Name Bk Kellogg Attending Physician Papa French MD Current Medications Medications (Trade) Dose Ordered Sig/Nick Route PRN Reason Start Time Stop Time Status Last Admin Dose Admin Acetaminophen (Tylenol) 650 mg Q4H PRN ORAL FEVER 03/18/20 14:00 04/17/20 13:59 03/27/20 17:28 Allopurinol (Zyloprim) 200 mg DAILY ORAL 03/19/20 09:00 04/18/20 08:59 03/28/20 09:36 Amlodipine Besylate (Norvasc) 2.5 mg DAILY ORAL 03/23/20 19:45 04/22/20 19:44 03/28/20 09:41 Barium Sulfate (Varibar Honey) 250 ml NOW PRN MC RAD 03/28/20 13:45 03/31/20 13:39 Barium Sulfate (Varibar [place]) 240 ml NOW PRN MC RAD 03/28/20 13:45 03/31/20 13:39 Barium Sulfate (Varibar Pudding) 230 ml NOW PRN MC RAD 03/28/20 13:45 03/31/20 13:39 Barium Sulfate (Varibar Thin Liquid powder) 148 gm NOW PRN MC RAD 03/28/20 13:45 03/31/20 13:39 Carvedilol (Coreg) 6.25 mg EVERY 12 HOURS ORAL 03/22/20 09:00 04/17/20 20:59 03/27/20 09:32 Chlorhexidine Gluconate (Esther-Hex 2%) 1 applic DAILY@2000 TOPIC 03/28/20 20:00 06/26/20 19:59 Clonidine HCl (Catapres Tab) 0.1 mg Q4H PRN ORAL For High Blood Pressure 03/22/20 03:45 06/20/20 03:44 03/22/20 03:59 Dextrose (Dextrose 50%) 25 ml Q30M PRN IV Hypoglycemia 03/27/20 11:45 06/25/20 11:44 Dextrose (Dextrose 50%) 50 ml Q30M PRN IV Hypoglycemia 03/27/20 11:45 06/25/20 11:44 Escitalopram Oxalate (Lexapro) 5 mg DAILY ORAL 03/19/20 09:00 04/18/20 08:59 03/28/20 09:35 Heparin Sodium (Porcine) (Heparin 5000 units/ml) 5,000 units EVERY 12 HOURS SUBQ 03/18/20 21:00 05/02/20 20:59 03/27/20 21:24 Heparin Sodium/ Sodium Chloride (Heparin 1000 units/500ml Premix) 1,000 unit ONCE IV 03/26/20 18:15 03/28/20 23:59 Hydralazine HCl (Apresoline) 25 mg Q8HR ORAL 03/24/20 09:00 06/20/20 08:59 03/28/20 14:06 Hydralazine HCl (Apresoline) 50 mg EVERY 8 HOURS PRN ORAL For High Blood Pressure 03/22/20 00:30 06/20/20 00:29 Insulin Aspart (NovoLOG) Q6HR SUBQ 03/27/20 12:00 06/25/20 11:59 03/28/20 18:14 Lidocaine HCl (Xylocaine 1% 30ml) 30 ml ONCE INJ 03/26/20 19:30 03/28/20 23:59 Losartan Potassium (Cozaar) 50 mg EVERY 12 HOURS ORAL 03/22/20 15:00 04/21/20 14:59 03/28/20 09:36 Ondansetron HCl (Zofran) 4 mg Q6H PRN IVP Nausea & Vomiting 03/18/20 14:00 04/17/20 13:59 Polyethylene Glycol (Miralax) 17 gm DAILYPRN PRN ORAL Constipation 03/18/20 14:00 04/17/20 13:59 03/22/20 17:26 Promethazine HCl/ Codeine (Phenergan with Codeine) 5 ml Q4H PRN ORAL For Cough 03/18/20 14:00 04/17/20 13:59 Sodium Chloride 1,000 ml @ 50 mls/hr Q20H IV 03/25/20 14:45 04/24/20 14:44 03/26/20 10:45 Allergies: Coded Allergies: No Known Allergies (Unverified , 09/17/12) ROS Limited/Unobtainable: Yes Subjective 74 YO F admitted with fever. Now COVID 19 positive and pneumonia. Cover for Int Ambrocio-Dr French Objective Last Vital Signs Date Time Temp Pulse Resp B/P (MAP) Pulse Ox O2 Delivery O2 Flow Rate FiO2 03/28/20 16:00 58 9/28/20 16:00 97.7 20 150/65 (93) 98 03/28/20 09:00 Nasal Cannula 2.0 03/28/20 07:21 28 Laboratory Tests Test 03/27/20 23:38 03/28/20 05:57 03/28/20 06:00 POC Whole Blood Glucose Pending 116 MG/DL (74-106) H White Blood Count 11.7 K/UL (4.8-10.8) H Red Blood Count 3.91 M/UL (4.20-5.40) L Hemoglobin 11.0 G/DL (12.0-16.0) L Hematocrit 33.9 % (37.0-47.0) L Mean Corpuscular Volume 87 FL (80-99) Mean Corpuscular Hemoglobin 28.1 PG (27.0-31.0) Mean Corpuscular Hemoglobin Concent 32.4 G/DL (32.0-36.0) Red Cell Distribution Width 14.4 % (11.6-14.8) Platelet Count 311 K/UL (150-450) Mean Platelet Volume 5.4 FL (6.5-10.1) L Neutrophils (%) (Auto) 58.3 % (45.0-75.0) Lymphocytes (%) (Auto) 27.9 % (20.0-45.0) Monocytes (%) (Auto) 10.7 % (1.0-10.0) H Eosinophils (%) (Auto) 1.8 % (0.0-3.0) Basophils (%) (Auto) 1.3 % (0.0-2.0) Sodium Level 142 MMOL/L (136-145) Potassium Level 3.7 MMOL/L (3.5-5.1) Chloride Level 106 MMOL/L (98-107) Carbon Dioxide Level 28 MMOL/L (21-32) Anion Gap 9 mmol/L (5-15) Blood Urea Nitrogen 25 mg/dL (7-18) H Creatinine 1.0 MG/DL (0.55-1.30) Estimat Glomerular Filtration Rate > 60 mL/min (>60) Glucose Level 117 MG/DL (74-106) H Calcium Level 8.9 MG/DL (8.5-10.1) Intake and Output 03/27/20 03/28/20 18:59 06:59 Intake Total 670 ml Output Total 500 ml 450 ml Balance 170 ml -450 ml Intake Oral 220 ml IV Total 450 ml Output Urine Total 500 ml 450 ml # Voids 1 Objective PHYSICAL EXAMINATION: GENERAL: The patient awake, responsive, no acute distress. HEENT: Head and neck examination, pupils are equal and reactive to light. Extraocular muscles intact. Neck was supple. No JVD. LUNGS: Good air entry. Decreased air in bases. HEART: S1, S2. Regular rhythm. No gallops. ABDOMEN: Soft, nontender, nondistended. Mildly obese. EXTREMITIES: No cyanosis, clubbing, or edema. NEUROLOGIC: Cranial nerves II through XII grossly intact. The patient moving all extremities. RECTAL: Refused and deferred. GENITOURINARY: Refused and deferred. PSYCHIATRIC: Mood and affect is intact. Assessment/Plan Assessment/Plan ASSESSMENT: 1. COVID-19 pneumonia. 2. Acute hypoxemic respiratory failure. 3. Low-grade fever, possible due to the pneumonia. 4. Possible urinary tract infection. 5. Congestive heart failure, chronic. 6. Obesity. 7. Hypertension. 8. Diabetes type 2. 9. History of CVA. 10. UTI=ESBL E. Coli PLAN: 1. Admit the patient to monitored unit. 2. antibiotic= Monitor off ABX; S/P cefepime, vancomycin,meropenem.and azithromycin 3. Continue Decadron IV. 4. Continue Remdesivir 5. DVT prophylaxis=heparin subcutaneous. 6. Code status is Full Code. 7. Dr. Calli Lux=Pulmonary Critical Care 8. Dr. Hernandez = Infectious Disease Bk Kellogg MD Mar 28, 2020 19:02
--- NOTE | 2020-03-28 19:13 | NUR ---
NURSE NOTES: Heparin and lidocaine not given. This is for PICC line placement.
--- NOTE | 2020-03-28 19:34 | NUR ---
NURSE HAND-OFF REPORT: Important Events on Shift: pt lethargic and has poor appetite. swelling in right hand. PICC line placed. Patient Status: Diet: Pending Orders: Pending Results/Labs: Pending MD notification: Latest Vital Signs: Temperature 97.7 , Pulse 58 , B/P 150 /65 , Respiratory Rate 20 , O2 SAT 98 , Nasal Cannula, O2 Flow Rate 2.0 . Vital Sign Comment: EKG Rhythm: Sinus Bradycardia Rhythm change?: N Notified?: N -Dr Jose J BADILLO Response: No New Orders Received Latest Garcia Fall Score: 70 Fall Risk: High Risk Safety Measures: Call light Within Reach, Bed Alarm Zone 1, Side Rails Side Rails x2, Bed position Low and Locked. Fall Precautions: Yellow Socks Yellow Gown Door Sign Patient Fall Education Report given to .
--- NOTE | 2020-03-28 19:40 | NUR ---
NURSE NOTES: Patient received from PRITESH Arango. Patient is currently sleeping. Patient is lethargic, did not talk back but opened her eyes when I called her name. Patient is on 2 L Nasal cannula. Patient is currently on purewick. Patient has an IV on her left wrist 24 gauge running NS @ 50 ml/hr. Patient has a PICC line on her right upper arm. Bed is in the lowest position, call light within reach. Will continue to monitor.
[2020-03-28 20:00] VITALS: BP 155/66
[2020-03-28] MEDS: Dyna-Hex 2% Top Sol 2oz TOPIC SCH (20:47)
--- NOTE | 2020-03-28 21:45 | Cardiology Progress Note ---
Assessment/Plan Problem List: (1) Sinus bradycardia (2) Bacteremia (3) History of hypertension (4) Pneumonia due to COVID-19 virus Status: stable, unchanged Status Narrative COVID 19 pneumonia HTN Sinus bradycardia Assessment/Plan Hemodynamically stable. Management of respiratory infection per primary team. Continue low dose coreg, amlodipine, and losartan for BP control. Would avoid clonidine, as potential for interaction w/ coreg in worsening bradycardia. Subjective ROS Limited/Unobtainable: Yes Subjective Cardiology for Dr. Veloz Pt sedated; no respiratory distress Objective Exam deferred as pt on COVID isolation Last 24 Hour Vital Signs Date Time Temp Pulse Resp B/P (MAP) Pulse Ox O2 Delivery O2 Flow Rate FiO2 03/28/20 21:00 155/66 03/28/20 21:00 62 155/66 03/28/20 19:58 98 Nasal Cannula 2.0 28 03/28/20 16:00 58 03/28/20 16:00 97.7 60 20 150/65 (93) 98 03/28/20 14:06 134/63 03/28/20 12:00 98.2 46 18 134/63 (86) 97 03/28/20 12:00 47 03/28/20 09:41 49 145/60 03/28/20 09:36 145/60 03/28/20 09:00 49 145/60 03/28/20 09:00 Nasal Cannula 2.0 03/28/20 08:00 97.9 46 20 145/60 (88) 98 03/28/20 08:00 49 03/28/20 07:21 97 Nasal Cannula 2.0 03/28/20 05:55 154/76 03/28/20 04:00 98.1 59 16 138/66 (90) 100 03/28/20 04:00 61 03/28/20 00:00 99.0 45 18 137/59 (85) 99 03/28/20 00:00 46 General Appearance: WD/WN, no apparent distress Intake and Output 03/27/20 03/28/20 19:00 07:00 Intake Total 620 ml Output Total 500 ml 450 ml Balance 120 ml -450 ml Intake Oral 220 ml IV Total 400 ml Output Urine Total 500 ml 450 ml # Voids 1 Laboratory Tests Test 03/27/20 23:38 03/28/20 05:57 03/28/20 06:00 POC Whole Blood Glucose Pending 116 MG/DL (74-106) H White Blood Count 11.7 K/UL (4.8-10.8) H Red Blood Count 3.91 M/UL (4.20-5.40) L Hemoglobin 11.0 G/DL (12.0-16.0) L Hematocrit 33.9 % (37.0-47.0) L Mean Corpuscular Volume 87 FL (80-99) Mean Corpuscular Hemoglobin 28.1 PG (27.0-31.0) Mean Corpuscular Hemoglobin Concent 32.4 G/DL (32.0-36.0) Red Cell Distribution Width 14.4 % (11.6-14.8) Platelet Count 311 K/UL (150-450) Mean Platelet Volume 5.4 FL (6.5-10.1) L Neutrophils (%) (Auto) 58.3 % (45.0-75.0) Lymphocytes (%) (Auto) 27.9 % (20.0-45.0) Monocytes (%) (Auto) 10.7 % (1.0-10.0) H Eosinophils (%) (Auto) 1.8 % (0.0-3.0) Basophils (%) (Auto) 1.3 % (0.0-2.0) Sodium Level 142 MMOL/L (136-145) Potassium Level 3.7 MMOL/L (3.5-5.1) Chloride Level 106 MMOL/L (98-107) Carbon Dioxide Level 28 MMOL/L (21-32) Anion Gap 9 mmol/L (5-15) Blood Urea Nitrogen 25 mg/dL (7-18) H Creatinine 1.0 MG/DL (0.55-1.30) Estimat Glomerular Filtration Rate > 60 mL/min (>60) Glucose Level 117 MG/DL (74-106) H Calcium Level 8.9 MG/DL (8.5-10.1) Lovely Perkins MD Mar 28, 2020 21:45
[2020-03-29] VITALS: BP 154/57
[2020-03-29] MEDS: NovoLOG Insulin Flexpen SUBQ SCH ×4 (00:33→17:57)
[2020-03-29 04:00] VITALS: BP 154/59
[2020-03-29 05:54] LABS: BASOPHILS % (AUTO) 0.9 % (0.0-2.0); EOSINOPHILS % (AUTO) 1.9 % (0.0-3.0); HEMOGLOBIN 10.6 G/DL (12.0-16.0); LYMPHOCYTES % (AUTO) 14.4 % (20.0-45.0); MEAN CORPUSCULAR VOLUME 87 FL (80-99); MONOCYTES % (AUTO) 7.7 % (1.0-10.0); NEUTROPHILS % (AUTO) 75.2 % (45.0-75.0); PLATELET COUNT 277 K/UL (150-450); RED BLOOD COUNT 3.81 M/UL (4.20-5.40); RED CELL DISTRIBUTION WIDTH 14.6 % (11.6-14.8); WHITE BLOOD COUNT 14.1 K/UL (4.8-10.8)
[2020-03-29] MEDS: HydrALAZINE 25mg tab ORAL SCH ×3 (06:15→21:37)
[2020-03-29 06:37] LABS: ANION GAP 9 mmol/L (5-15); BLOOD UREA NITROGEN 21 mg/dL (7-18); CARBON DIOXIDE 27 MMOL/L (21-32); CHLORIDE 105 MMOL/L (98-107); CREATININE 0.8 MG/DL (0.55-1.30); POTASSIUM 3.9 MMOL/L (3.5-5.1); SODIUM 141 MMOL/L (136-145)
--- NOTE | 2020-03-29 07:20 | NUR ---
NURSE NOTES: RECEIVED REPORT FROM NAIF RN IN BED AAO X2-3, NO S/S OF PAIN NOTED, BUT PATIENT APPEARED UNCOMFORTABLE, STATES "I'M COLD." REPOSITIONED PATIENT, PERFORM PROMPT HYGIENE, AND CHANGED LINEN, PATIENT IS NOW COMFORTABLE. NO S/S OF RESPIRATORY DISTRESS NOTED. NOTED PATIENT HAS RIGHT UPPER ARM PICC LINE, CLEAN, INTACT, AND PATENT, RUNNINING NS @ 50CC/HR. BED IS IN LOWEST LEVEL WITH BEDSIDE RAILS UP X3, BRAKES ENGAGED FOR SAFETY, CALL LIGHT IS WITHIN REACH. WILL CONTINUE WITH THE PLAN OF CARE.
[2020-03-29 08:00] VITALS: BP 151/75
[2020-03-29] MEDS: Losartan 50mg tab ORAL SCH ×2 (08:35→21:37)
[2020-03-29] MEDS: Allopurinol 100mg Tab ORAL SCH (08:36)
[2020-03-29] MEDS: Carvedilol 12.5mg tab ORAL SCH ×2 (08:37→21:39)
[2020-03-29] MEDS: Heparin 5000 units/ml inj SUBQ SCH ×2 (08:38→21:40)
--- NOTE | 2020-03-29 09:31 | NUR ---
NURSE NOTES: PATIENT WAS FED BREAKFAST, ATE ABOUT 40% AND DRANK FLUID. WILL CONTINUE TO FEED PATIENT TOLERATED.
--- NOTE | 2020-03-29 10:28 | Infectious Diseases Prog Note ---
Assessment/Plan Assessment: COVID19 Pneumonia(dx'ed 03/15) Acute hypoxic resp failure- sp NC, now on 2 Lit O2 -03/22 CXR: Cardiomegaly. Decreased and now minimal interstitial congestion -03/21 CXR: Suspect slightly increased interstitial congestion. Cardiomegaly -03/18 rapid COVID PCR + CXR: Possible early infiltrate right midlung. Low grade fever, recurrent No leukocytosis Probable UTI -u/a wbc 60-80, nit +, leuk +3; ucx >100k ESBL E.coli, 20-30k GNR Gram positive bacteremia - Likely contaminants -03/21 Bcx p -03/18 Bcx 1/4 S. warneri, 07/04 S. hominis; 03/20 Bcx 1/4 S.auricularis; 03/21 Bcx NTD CHF obesity HTN Dm2 CVA Plan: - Monitor off abx - repeat UA and Cx - 03/28/20 SP Decadron #10/10 - 03/27/20 SP Meropenem #7/7 for ESBL UTI - 03/25/20 SP IV Vancomcyin #9 - 03/24/20 SP Remdesivir #5/5 -03/22 SP Azithromycin #6 -03/20 SP Cefepime #4 -03/18 SP Ceftriaxone x1 -f/u cx -Monitor CBC/CMP, temperatures -COVID19 isolation - f/u repeat Bcx Thank you for this consult. [facility] will continue to follow. Subjective Allergies: Coded Allergies: No Known Allergies (Unverified , 09/17/12) Afebrile Still on 2L NC Mild leukocytosis increased today Objective Last 24 Hour Vital Signs Date Time Temp Pulse Resp B/P (MAP) Pulse Ox O2 Delivery O2 Flow Rate FiO2 03/29/20 09:00 Nasal Cannula 2.0 03/29/20 08:37 58 151/75 03/29/20 08:35 58 151/75 03/29/20 08:35 151/75 03/29/20 08:00 99.3 67 20 151/75 (100) 96 03/29/20 08:00 67 03/29/20 06:15 157/82 03/29/20 04:00 97.9 51 18 154/59 (90) 96 03/29/20 04:00 49 03/29/20 00:00 97.9 52 15 154/57 (89) 97 03/29/20 00:00 53 03/28/20 22:00 148/67 03/28/20 21:00 Nasal Cannula 2.0 03/28/20 21:00 155/66 03/28/20 21:00 62 155/66 03/28/20 20:00 52 03/28/20 20:00 98.5 62 18 155/66 (95) 97 03/28/20 19:58 98 Nasal Cannula 2.0 28 03/28/20 16:00 58 03/28/20 16:00 97.7 60 20 150/65 (93) 98 03/28/20 14:06 134/63 03/28/20 12:00 98.2 46 18 134/63 (86) 97 03/28/20 12:00 47 Height (Feet): 5 Height (Inches): 5.00 Weight (Pounds): 225 GENERAL: NAD on 2L HEENT: NCAT, MMM, EOMI LUNGS: Equal rise and fall of chest B/L no accessory muscle use ABDOMEN: Soft, nondistended Laboratory Tests Test 03/29/20 00:07 03/29/20 04:30 03/29/20 06:39 POC Whole Blood Glucose Pending 122 MG/DL (74-106) H White Blood Count 14.1 K/UL (4.8-10.8) H Red Blood Count 3.81 M/UL (4.20-5.40) L Hemoglobin 10.6 G/DL (12.0-16.0) L Hematocrit 33.0 % (37.0-47.0) L Mean Corpuscular Volume 87 FL (80-99) Mean Corpuscular Hemoglobin 27.9 PG (27.0-31.0) Mean Corpuscular Hemoglobin Concent 32.2 G/DL (32.0-36.0) Red Cell Distribution Width 14.6 % (11.6-14.8) Platelet Count 277 K/UL (150-450) Mean Platelet Volume 7.1 FL (6.5-10.1) Neutrophils (%) (Auto) 75.2 % (45.0-75.0) H Lymphocytes (%) (Auto) 14.4 % (20.0-45.0) L Monocytes (%) (Auto) 7.7 % (1.0-10.0) Eosinophils (%) (Auto) 1.9 % (0.0-3.0) Basophils (%) (Auto) 0.9 % (0.0-2.0) Sodium Level 141 MMOL/L (136-145) Potassium Level 3.9 MMOL/L (3.5-5.1) Chloride Level 105 MMOL/L (98-107) Carbon Dioxide Level 27 MMOL/L (21-32) Anion Gap 9 mmol/L (5-15) Blood Urea Nitrogen 21 mg/dL (7-18) H Creatinine 0.8 MG/DL (0.55-1.30) Estimat Glomerular Filtration Rate > 60 mL/min (>60) Glucose Level 119 MG/DL (74-106) H Calcium Level 9.0 MG/DL (8.5-10.1) Current Medications Medications (Trade) Dose Ordered Sig/Nick Route PRN Reason Start Time Stop Time Status Last Admin Dose Admin Acetaminophen (Tylenol) 650 mg Q4H PRN ORAL FEVER 03/18/20 14:00 04/17/20 13:59 03/27/20 17:28 Allopurinol (Zyloprim) 200 mg DAILY ORAL 03/19/20 09:00 04/18/20 08:59 03/29/20 08:36 Amlodipine Besylate (Norvasc) 2.5 mg DAILY ORAL 03/23/20 19:45 04/22/20 19:44 03/29/20 08:35 Barium Sulfate (Varibar Honey) 250 ml NOW PRN RAD 03/28/20 13:45 03/31/20 13:39 Barium Sulfate (Varibar [place]) 240 ml NOW PRN MC RAD 03/28/20 13:45 03/31/20 13:39 Barium Sulfate (Varibar Pudding) 230 ml NOW PRN MC RAD 03/28/20 13:45 03/31/20 13:39 Barium Sulfate (Varibar Thin Liquid powder) 148 gm NOW PRN RAD 03/28/20 13:45 03/31/20 13:39 Carvedilol (Coreg) 6.25 mg EVERY 12 HOURS ORAL 03/22/20 09:00 04/17/20 20:59 03/29/20 08:37 Chlorhexidine Gluconate (Esther-Hex 2%) 1 applic DAILY@2000 TOPIC 03/28/20 20:00 06/26/20 19:59 03/28/20 20:47 Clonidine HCl (Catapres Tab) 0.1 mg Q4H PRN ORAL For High Blood Pressure 03/22/20 03:45 06/20/20 03:44 03/22/20 03:59 Dextrose (Dextrose 50%) 25 ml Q30M PRN IV Hypoglycemia 03/27/20 11:45 06/25/20 11:44 Dextrose (Dextrose 50%) 50 ml Q30M PRN IV Hypoglycemia 03/27/20 11:45 06/25/20 11:44 Escitalopram Oxalate (Lexapro) 5 mg DAILY ORAL 03/19/20 09:00 04/18/20 08:59 03/29/20 08:35 Heparin Sodium (Porcine) (Heparin 5000 units/ml) 5,000 units EVERY 12 HOURS SUBQ 03/18/20 21:00 05/02/20 20:59 03/29/20 08:38 Hydralazine HCl (Apresoline) 25 mg Q8HR ORAL 03/24/20 09:00 06/20/20 08:59 03/29/20 06:15 Hydralazine HCl (Apresoline) 50 mg EVERY 8 HOURS PRN ORAL For High Blood Pressure 03/22/20 00:30 06/20/20 00:29 Insulin Aspart (NovoLOG) Q6HR SUBQ 03/27/20 12:00 06/25/20 11:59 03/29/20 00:33 Losartan Potassium (Cozaar) 50 mg EVERY 12 HOURS ORAL 03/22/20 15:00 04/21/20 14:59 03/29/20 08:35 Ondansetron HCl (Zofran) 4 mg Q6H PRN IVP Nausea & Vomiting 03/18/20 14:00 04/17/20 13:59 Polyethylene Glycol (Miralax) 17 gm DAILYPRN PRN ORAL Constipation 03/18/20 14:00 04/17/20 13:59 03/22/20 17:26 Promethazine HCl/ Codeine (Phenergan with Codeine) 5 ml Q4H PRN ORAL For Cough 03/18/20 14:00 04/17/20 13:59 Sodium Chloride 1,000 ml @ 50 mls/hr Q20H IV 03/25/20 14:45 04/24/20 14:44 03/26/20 10:45 Mio Oviedo MD Mar 29, 2020 10:27
[2020-03-29 12:00] VITALS: BP 162/69
--- NOTE | 2020-03-29 12:09 | Cardiology Progress Note ---
Assessment/Plan Assessment/Plan 1. Acute COVID-19 infection. 2. COVID-19 pneumonia. 3. History of cardiomyopathy reportedly. 4. Diabetes mellitus. 5. Hypertension. 6. Hyperlipidemia. 7. Obesity. tele reviewed personally sinus / sinus jay jay no sig pauses noted trop neg pro bnp normal cxr improved bp better eats when fed but is on ivf dr brannon ordered calorie count Subjective Subjective deferred due to acute covid infection per rn: AAO X2-3, NO S/S OF PAIN NOTED, BUT PATIENT APPEARED UNCOMFORTABLE, STATES "I'M COLD." REPOSITIONED PATIENT, PERFORM PROMPT HYGIENE, AND CHANGED LINEN, PATIENT IS NOW COMFORTABLE. NO S/S OF RESPIRATORY DISTRESS NOTED. NOTED PATIENT HAS RIGHT UPPER ARM PICC LINE, CLEAN, INTACT, AND PATENT, RUNNINING NS @ 50CC/HR. Objective Last 24 Hour Vital Signs Date Time Temp Pulse Resp B/P (MAP) Pulse Ox O2 Delivery O2 Flow Rate FiO2 03/29/20 12:00 98.2 59 22 162/69 (100) 97 03/29/20 09:00 Nasal Cannula 2.0 03/29/20 08:37 58 151/75 03/29/20 08:35 58 151/75 03/29/20 08:35 151/75 03/29/20 08:00 99.3 67 20 151/75 (100) 96 03/29/20 08:00 67 03/29/20 06:15 157/82 03/29/20 04:00 97.9 51 18 154/59 (90) 96 03/29/20 04:00 49 03/29/20 00:00 97.9 52 15 154/57 (89) 97 03/29/20 00:00 53 03/28/20 22:00 148/67 03/28/20 21:00 Nasal Cannula 2.0 03/28/20 21:00 155/66 03/28/20 21:00 62 155/66 03/28/20 20:00 52 03/28/20 20:00 98.5 62 18 155/66 (95) 97 03/28/20 19:58 98 Nasal Cannula 2.0 28 03/28/20 16:00 58 03/28/20 16:00 97.7 60 20 150/65 (93) 98 03/28/20 14:06 134/63 Intake and Output 03/28/20 03/29/20 19:00 07:00 Intake Total 60 ml Output Total 300 ml 400 ml Balance -240 ml -400 ml Intake Oral 60 ml Output Urine Total 300 ml 400 ml Laboratory Tests Test 03/29/20 00:07 03/29/20 04:30 03/29/20 06:39 POC Whole Blood Glucose Pending 122 MG/DL (74-106) H White Blood Count 14.1 K/UL (4.8-10.8) H Red Blood Count 3.81 M/UL (4.20-5.40) L Hemoglobin 10.6 G/DL (12.0-16.0) L Hematocrit 33.0 % (37.0-47.0) L Mean Corpuscular Volume 87 FL (80-99) Mean Corpuscular Hemoglobin 27.9 PG (27.0-31.0) Mean Corpuscular Hemoglobin Concent 32.2 G/DL (32.0-36.0) Red Cell Distribution Width 14.6 % (11.6-14.8) Platelet Count 277 K/UL (150-450) Mean Platelet Volume 7.1 FL (6.5-10.1) Neutrophils (%) (Auto) 75.2 % (45.0-75.0) H Lymphocytes (%) (Auto) 14.4 % (20.0-45.0) L Monocytes (%) (Auto) 7.7 % (1.0-10.0) Eosinophils (%) (Auto) 1.9 % (0.0-3.0) Basophils (%) (Auto) 0.9 % (0.0-2.0) Sodium Level 141 MMOL/L (136-145) Potassium Level 3.9 MMOL/L (3.5-5.1) Chloride Level 105 MMOL/L (98-107) Carbon Dioxide Level 27 MMOL/L (21-32) Anion Gap 9 mmol/L (5-15) Blood Urea Nitrogen 21 mg/dL (7-18) H Creatinine 0.8 MG/DL (0.55-1.30) Estimat Glomerular Filtration Rate > 60 mL/min (>60) Glucose Level 119 MG/DL (74-106) H Calcium Level 9.0 MG/DL (8.5-10.1) Objective deferred due to active covid infection per dr feng LUNGS: Good air entry. Decreased air in bases. HEART: S1, S2. Regular rhythm. No gallops. ABDOMEN: Soft, nontender, nondistended. Mildly obese. EXTREMITIES: No cyanosis, clubbing, or edema Giovanni Veloz MD Mar 29, 2020 12:09
--- NOTE | 2020-03-29 13:35 | Pulmonology Progress Note ---
Subjective ROS Limited/Unobtainable: Yes Allergies: Coded Allergies: No Known Allergies (Unverified , 09/17/12) Objective Last 24 Hour Vital Signs Date Time Temp Pulse Resp B/P (MAP) Pulse Ox O2 Delivery O2 Flow Rate FiO2 03/29/20 12:00 70 03/29/20 12:00 98.2 59 22 162/69 (100) 97 03/29/20 09:00 Nasal Cannula 2.0 03/29/20 08:37 58 151/75 03/29/20 08:35 58 151/75 03/29/20 08:35 151/75 03/29/20 08:00 99.3 67 20 151/75 (100) 96 03/29/20 08:00 67 03/29/20 06:15 157/82 03/29/20 04:00 97.9 51 18 154/59 (90) 96 03/29/20 04:00 49 03/29/20 00:00 97.9 52 15 154/57 (89) 97 03/29/20 00:00 53 03/28/20 22:00 148/67 03/28/20 21:00 Nasal Cannula 2.0 03/28/20 21:00 155/66 03/28/20 21:00 62 155/66 03/28/20 20:00 52 03/28/20 20:00 98.5 62 18 155/66 (95) 97 03/28/20 19:58 98 Nasal Cannula 2.0 28 03/28/20 16:00 58 03/28/20 16:00 97.7 60 20 150/65 (93) 98 03/28/20 14:06 134/63 Intake and Output 03/28/20 03/29/20 18:59 06:59 Intake Total 60 ml Output Total 300 ml 400 ml Balance -240 ml -400 ml Intake Oral 60 ml Output Urine Total 300 ml 400 ml General Appearance: WD/WN, no acute distress HEENT: normocephalic, atraumatic Respiratory: chest wall non-tender, lungs clear Cardiovascular: normal peripheral pulses, normal rate Abdomen: normal bowel sounds Genitourinary: normal external genitalia Extremities: pedal pulses normal Skin: no rash Neurologic: rn rehab II-XII grossly normal, alert, responsive Musculoskeletal: normal muscle bulk Laboratory Tests 03/29/20 00:07: POC Whole Blood Glucose [Pending] 03/29/20 04:30: White Blood Count 14.1H, Red Blood Count 3.81L, Hemoglobin 10.6L, Hematocrit 33.0L, Mean Corpuscular Volume 87, Mean Corpuscular Hemoglobin 27.9, Mean Corpuscular Hemoglobin Concent 32.2, Red Cell Distribution Width 14.6, Platelet Count 277, Mean Platelet Volume 7.1, Neutrophils (%) (Auto) 75.2H, Lymphocytes (%) (Auto) 14.4L, Monocytes (%) (Auto) 7.7, Eosinophils (%) (Auto) 1.9, Basophils (%) (Auto) 0.9, Sodium Level 141, Potassium Level 3.9, Chloride Level 105, Carbon Dioxide Level 27, Anion Gap 9, Blood Urea Nitrogen 21H, Creatinine 0.8, Estimat Glomerular Filtration Rate > 60, Glucose Level 119H, Calcium Level 9.0 03/29/20 06:39: POC Whole Blood Glucose 122H Current Medications Medications (Trade) Dose Ordered Sig/Nick Route PRN Reason Start Time Stop Time Status Last Admin Dose Admin Acetaminophen (Tylenol) 650 mg Q4H PRN ORAL FEVER 03/18/20 14:00 04/17/20 13:59 03/27/20 17:28 Allopurinol (Zyloprim) 200 mg DAILY ORAL 03/19/20 09:00 04/18/20 08:59 03/29/20 08:36 Amlodipine Besylate (Norvasc) 2.5 mg DAILY ORAL 03/23/20 19:45 04/22/20 19:44 03/29/20 08:35 Barium Sulfate (Varibar Honey) 250 ml NOW PRN MC RAD 03/28/20 13:45 03/31/20 13:39 Barium Sulfate (Varibar [place]) 240 ml NOW PRN MC RAD 03/28/20 13:45 03/31/20 13:39 Barium Sulfate (Varibar Pudding) 230 ml NOW PRN MC RAD 03/28/20 13:45 03/31/20 13:39 Barium Sulfate (Varibar Thin Liquid powder) 148 gm NOW PRN MC RAD 03/28/20 13:45 03/31/20 13:39 Carvedilol (Coreg) 6.25 mg EVERY 12 HOURS ORAL 03/22/20 09:00 04/17/20 20:59 03/29/20 08:37 Chlorhexidine Gluconate (Esther-Hex 2%) 1 applic DAILY@2000 TOPIC 03/28/20 20:00 06/26/20 19:59 03/28/20 20:47 Clonidine HCl (Catapres Tab) 0.1 mg Q4H PRN ORAL For High Blood Pressure 03/22/20 03:45 06/20/20 03:44 03/22/20 03:59 Dextrose (Dextrose 50%) 25 ml Q30M PRN IV Hypoglycemia 03/27/20 11:45 06/25/20 11:44 Dextrose (Dextrose 50%) 50 ml Q30M PRN IV Hypoglycemia 03/27/20 11:45 06/25/20 11:44 Escitalopram Oxalate (Lexapro) 5 mg DAILY ORAL 03/19/20 09:00 04/18/20 08:59 03/29/20 08:35 Heparin Sodium (Porcine) (Heparin 5000 units/ml) 5,000 units EVERY 12 HOURS SUBQ 03/18/20 21:00 05/02/20 20:59 03/29/20 08:38 Hydralazine HCl (Apresoline) 25 mg Q8HR ORAL 03/24/20 09:00 06/20/20 08:59 03/29/20 06:15 Hydralazine HCl (Apresoline) 50 mg EVERY 8 HOURS PRN ORAL For High Blood Pressure 03/22/20 00:30 06/20/20 00:29 Insulin Aspart (NovoLOG) Q6HR SUBQ 03/27/20 12:00 06/25/20 11:59 03/29/20 00:33 Losartan Potassium (Cozaar) 50 mg EVERY 12 HOURS ORAL 03/22/20 15:00 04/21/20 14:59 03/29/20 08:35 Ondansetron HCl (Zofran) 4 mg Q6H PRN IVP Nausea & Vomiting 03/18/20 14:00 04/17/20 13:59 Polyethylene Glycol (Miralax) 17 gm DAILYPRN PRN ORAL Constipation 03/18/20 14:00 04/17/20 13:59 03/22/20 17:26 Promethazine HCl/ Codeine (Phenergan with Codeine) 5 ml Q4H PRN ORAL For Cough 03/18/20 14:00 04/17/20 13:59 Sodium Chloride 1,000 ml @ 50 mls/hr Q20H IV 03/25/20 14:45 04/24/20 14:44 03/26/20 10:45 Assessment/Plan Problems: (1) 2019 novel coronavirus disease (COVID-19) (2) UTI (urinary tract infection) (3) Diabetes mellitus (4) History of hypertension (5) Gout (6) HX: breast cancer (7) Major depression, recurrent (8) Bacteremia Assessment/Plan not eating well pt not eating or drinking, swallow study ordered repeat BC were negative low grade temp last night check cxr, 03/22, decreasing infiltrate Decreased and now minimal interstitial congestion respiratory isolation check urine culture sliding scale diabetic diet monitor BP Calli Lux MD Mar 29, 2020 13:35
--- NOTE | 2020-03-29 14:15 | NUR ---
CASE MANAGEMENT: REVIEW SI: COVID-19 . PNA T 99.3 HR 58 RR 20 BP 162/69 SAT 96% NC/2L WBC 14.1 H/H 10.6/33.0 URINE CX PENDING IS: HEPARIN SUBQ Q12HR NS IVF @ 50ML/HR SWALLOW EVAL COMPLETE w/RECOMMENDATION TO RESUME REGULAR DIET CALORIE COUNT FOR POOR ORAL INTAKE TELEMETRY UNIT STATUS DCP: PATIENT IS FROM [facility]
[2020-03-29 16:00] VITALS: BP 154/59
--- NOTE | 2020-03-29 17:04 | Internal Med Progress Note ---
Subjective Date of Service: Mar 29, 2020 Physician Name Bk Kellogg Attending Physician Papa French MD Current Medications Medications (Trade) Dose Ordered Sig/Nick Route PRN Reason Start Time Stop Time Status Last Admin Dose Admin Acetaminophen (Tylenol) 650 mg Q4H PRN ORAL FEVER 03/18/20 14:00 04/17/20 13:59 03/27/20 17:28 Allopurinol (Zyloprim) 200 mg DAILY ORAL 03/19/20 09:00 04/18/20 08:59 03/29/20 08:36 Amlodipine Besylate (Norvasc) 2.5 mg DAILY ORAL 03/23/20 19:45 04/22/20 19:44 03/29/20 08:35 Barium Sulfate (Varibar Honey) 250 ml NOW PRN MC RAD 03/28/20 13:45 03/31/20 13:39 Barium Sulfate (Varibar [place]) 240 ml NOW PRN MC RAD 03/28/20 13:45 03/31/20 13:39 Barium Sulfate (Varibar Pudding) 230 ml NOW PRN MC RAD 03/28/20 13:45 03/31/20 13:39 Barium Sulfate (Varibar Thin Liquid powder) 148 gm NOW PRN MC RAD 03/28/20 13:45 03/31/20 13:39 Carvedilol (Coreg) 6.25 mg EVERY 12 HOURS ORAL 03/22/20 09:00 04/17/20 20:59 03/29/20 08:37 Chlorhexidine Gluconate (Esther-Hex 2%) 1 applic DAILY@2000 TOPIC 03/28/20 20:00 06/26/20 19:59 03/28/20 20:47 Clonidine HCl (Catapres Tab) 0.1 mg Q4H PRN ORAL For High Blood Pressure 03/22/20 03:45 06/20/20 03:44 03/22/20 03:59 Dextrose (Dextrose 50%) 25 ml Q30M PRN IV Hypoglycemia 03/27/20 11:45 06/25/20 11:44 Dextrose (Dextrose 50%) 50 ml Q30M PRN IV Hypoglycemia 03/27/20 11:45 06/25/20 11:44 Escitalopram Oxalate (Lexapro) 5 mg DAILY ORAL 03/19/20 09:00 04/18/20 08:59 03/29/20 08:35 Heparin Sodium (Porcine) (Heparin 5000 units/ml) 5,000 units EVERY 12 HOURS SUBQ 03/18/20 21:00 05/02/20 20:59 03/29/20 08:38 Hydralazine HCl (Apresoline) 25 mg Q8HR ORAL 03/24/20 09:00 06/20/20 08:59 03/29/20 13:35 Hydralazine HCl (Apresoline) 50 mg EVERY 8 HOURS PRN ORAL For High Blood Pressure 03/22/20 00:30 06/20/20 00:29 Insulin Aspart (NovoLOG) Q6HR SUBQ 03/27/20 12:00 06/25/20 11:59 03/29/20 00:33 Losartan Potassium (Cozaar) 50 mg EVERY 12 HOURS ORAL 03/22/20 15:00 04/21/20 14:59 03/29/20 08:35 Ondansetron HCl (Zofran) 4 mg Q6H PRN IVP Nausea & Vomiting 03/18/20 14:00 04/17/20 13:59 Polyethylene Glycol (Miralax) 17 gm DAILYPRN PRN ORAL Constipation 03/18/20 14:00 04/17/20 13:59 03/22/20 17:26 Promethazine HCl/ Codeine (Phenergan with Codeine) 5 ml Q4H PRN ORAL For Cough 03/18/20 14:00 04/17/20 13:59 Sodium Chloride 1,000 ml @ 50 mls/hr Q20H IV 03/25/20 14:45 04/24/20 14:44 03/26/20 10:45 Allergies: Coded Allergies: No Known Allergies (Unverified , 09/17/12) ROS Limited/Unobtainable: Yes Subjective 74 YO F admitted with fever. Now COVID 19 positive and pneumonia. Cover for Int [facility]-Dr French Objective Last Vital Signs Date Time Temp Pulse Resp B/P (MAP) Pulse Ox O2 Delivery O2 Flow Rate FiO2 03/29/20 13:35 162/69 03/29/20 12:00 70 03/29/20 12:00 98.2 22 97 03/29/20 09:00 Nasal Cannula 2.0 03/28/20 19:58 28 Laboratory Tests Test 03/29/20 00:07 03/29/20 04:30 03/29/20 06:39 POC Whole Blood Glucose Pending 122 MG/DL (74-106) H White Blood Count 14.1 K/UL (4.8-10.8) H Red Blood Count 3.81 M/UL (4.20-5.40) L Hemoglobin 10.6 G/DL (12.0-16.0) L Hematocrit 33.0 % (37.0-47.0) L Mean Corpuscular Volume 87 FL (80-99) Mean Corpuscular Hemoglobin 27.9 PG (27.0-31.0) Mean Corpuscular Hemoglobin Concent 32.2 G/DL (32.0-36.0) Red Cell Distribution Width 14.6 % (11.6-14.8) Platelet Count 277 K/UL (150-450) Mean Platelet Volume 7.1 FL (6.5-10.1) Neutrophils (%) (Auto) 75.2 % (45.0-75.0) H Lymphocytes (%) (Auto) 14.4 % (20.0-45.0) L Monocytes (%) (Auto) 7.7 % (1.0-10.0) Eosinophils (%) (Auto) 1.9 % (0.0-3.0) Basophils (%) (Auto) 0.9 % (0.0-2.0) Sodium Level 141 MMOL/L (136-145) Potassium Level 3.9 MMOL/L (3.5-5.1) Chloride Level 105 MMOL/L (98-107) Carbon Dioxide Level 27 MMOL/L (21-32) Anion Gap 9 mmol/L (5-15) Blood Urea Nitrogen 21 mg/dL (7-18) H Creatinine 0.8 MG/DL (0.55-1.30) Estimat Glomerular Filtration Rate > 60 mL/min (>60) Glucose Level 119 MG/DL (74-106) H Calcium Level 9.0 MG/DL (8.5-10.1) Intake and Output 03/28/20 03/29/20 19:00 07:00 Intake Total 60 ml Output Total 300 ml 400 ml Balance -240 ml -400 ml Intake Oral 60 ml Output Urine Total 300 ml 400 ml Objective PHYSICAL EXAMINATION: GENERAL: The patient awake, responsive, no acute distress. HEENT: Head and neck examination, pupils are equal and reactive to light. Extraocular muscles intact. Neck was supple. No JVD. LUNGS: Good air entry. Decreased air in bases. HEART: S1, S2. Regular rhythm. No gallops. ABDOMEN: Soft, nontender, nondistended. Mildly obese. EXTREMITIES: No cyanosis, clubbing, or edema. NEUROLOGIC: Cranial nerves II through XII grossly intact. The patient moving all extremities. RECTAL: Refused and deferred. GENITOURINARY: Refused and deferred. PSYCHIATRIC: Mood and affect is intact. Assessment/Plan Assessment/Plan ASSESSMENT: 1. COVID-19 pneumonia. 2. Acute hypoxemic respiratory failure. 3. Low-grade fever, possible due to the pneumonia. 4. Possible urinary tract infection. 5. Congestive heart failure, chronic. 6. Obesity. 7. Hypertension. 8. Diabetes type 2. 9. History of CVA. 10. UTI=ESBL E. Coli PLAN: 1. Admit the patient to monitored unit. 2. antibiotic= Monitor off ABX; S/P cefepime, vancomycin,meropenem.and azithromycin 3. Continue Decadron IV. 4. Continue Remdesivir 5. DVT prophylaxis=heparin subcutaneous. 6. Code status is Full Code. 7. Dr. Calli Lux=Pulmonary Critical Care 8. Dr. Hernandez = Infectious Disease Bk Kellogg MD Mar 29, 2020 17:04
--- NOTE | 2020-03-29 18:55 | NUR ---
NURSE NOTES: URINE CULTURE AND URINALYSIS COLLECTED AND SENT TO LAB.
[2020-03-29 18:57] LABS: APPEARANCE,URINE SLIGHTLY CLOUDY; BILIRUBIN, URINE NEGATIVE (NEGATIVE); GLUCOSE, URINE (UA) NEGATIVE (NEGATIVE); KETONES,URINE 1+ (NEGATIVE); LEUKOCYTE ESTERASE ,URINE 2+ (NEGATIVE); NITRITE,URINE NEGATIVE (NEGATIVE); PH,URINE 5 (4.5-8.0); PROTEIN,URINE 2+ (NEGATIVE); UROBILINOGEN,URINE 1 MG/DL (0.0-1.0)
--- NOTE | 2020-03-29 18:59 | NUR ---
NURSE NOTES: NURSE HAND-OFF REPORT: Important Events on Shift:PATIENT IS EATING WHEN FED Patient Status: Diet: Pending Orders: Pending Results/Labs: Pending MD notification: Latest Vital Signs: Temperature 99.1 , Pulse 71 , B/P 154 /59 , Respiratory Rate 20 , O2 SAT 96 , Nasal Cannula, O2 Flow Rate 2.0 . Vital Sign Comment: STABLE EKG Rhythm: Sinus Rhythm Rhythm change?: N MD Notified?: N -Dr Jose J BADILLO Response: No New Orders Received Latest Garcia Fall Score: 70 Fall Risk: High Risk Safety Measures: Call light Within Reach, Bed Alarm Zone 1, Side Rails Side Rails x2, Bed position Low and Locked. Fall Precautions: Yellow Socks Yellow Gown Door Sign Patient Fall Education Report given to .
[2020-03-29 19:02] LABS: COLOR,URINE YELLOW
--- NOTE | 2020-03-29 19:30 | NUR ---
NURSE NOTES: Received report from Brenda JONAS. Pt in stable condition. No s/s of distress or discomfort noted. Pt resting in bed comfortably. Pt is A+Ox2 lethargic. Pt is Sinus Rhythm on the monitor. Pt on 2L NC sating 99%. Pt has R Upper arm PICC patent and intact. Pt is bedbound skin issues noted. Bed in low and locked position, call light within reach, bedside table within reach. Continue to monitor.
[2020-03-29 20:00] VITALS: BP 147/61
[2020-03-29] MEDS: Dyna-Hex 2% Top Sol 2oz TOPIC SCH (21:41)
[2020-03-30] VITALS: BP 146/64
[2020-03-30 04:00] VITALS: BP 155/71
[2020-03-30] MEDS: HydrALAZINE 25mg tab ORAL SCH ×2 (05:24→14:13)
[2020-03-30] MEDS: NovoLOG Insulin Flexpen SUBQ SCH ×3 (05:37→12:00)
[2020-03-30 06:54] LABS: ANION GAP 5 mmol/L (5-15); BLOOD UREA NITROGEN 18 mg/dL (7-18); CARBON DIOXIDE 30 MMOL/L (21-32); CHLORIDE 107 MMOL/L (98-107); CREATININE 0.8 MG/DL (0.55-1.30); POTASSIUM 3.7 MMOL/L (3.5-5.1); SODIUM 142 MMOL/L (136-145)
[2020-03-30 06:58] LABS: BASOPHILS % (AUTO) 0.5 % (0.0-2.0); EOSINOPHILS % (AUTO) 2.1 % (0.0-3.0); HEMATOCRIT 31.1 % (37.0-47.0); HEMOGLOBIN 10.3 G/DL (12.0-16.0); LYMPHOCYTES % (AUTO) 18.2 % (20.0-45.0); MEAN CORPUSCULAR VOLUME 85 FL (80-99); MONOCYTES % (AUTO) 8.4 % (1.0-10.0); NEUTROPHILS % (AUTO) 70.8 % (45.0-75.0); PLATELET COUNT 226 K/UL (150-450); RED BLOOD COUNT 3.66 M/UL (4.20-5.40); RED CELL DISTRIBUTION WIDTH 14.4 % (11.6-14.8); WHITE BLOOD COUNT 11.2 K/UL (4.8-10.8)
--- NOTE | 2020-03-30 07:15 | NUR ---
NURSE HAND-OFF REPORT: Important Events on Shift:[] Patient Status: [Stable] Diet: [CCHO Medium Thin Liquids] Pending Orders: [] Pending Results/Labs:[AM Labs] Pending MD notification:[] Latest Vital Signs: Temperature 97.9 , Pulse 65 , B/P 155 /71 , Respiratory Rate 18 , O2 SAT 99 , Nasal Cannula, O2 Flow Rate 2.0 . Vital Sign Comment: [] EKG Rhythm: Sinus Bradycardia Rhythm change?: N MD Notified?: N -Dr Jose J BADILLO Response: No New Orders Received Latest Garcia Fall Score: 70 Fall Risk: High Risk Safety Measures: Call light Within Reach, Bed Alarm Zone 1, Side Rails Side Rails x2, Bed position Low and Locked. Fall Precautions: Yellow Socks Yellow Gown Door Sign Patient Fall Education Report given to [Brenda JONAS].
--- NOTE | 2020-03-30 07:22 | NUR ---
NURSE NOTES: RECEIVED REPORT FROM CECY JONAS IN BED AAO X2-3, NO S/S OF PAIN NOTED. NO S/S OF RESPIRATORY DISTRESS NOTED. RIGHT UPPER ARM PICC LINE, CLEAN, INTACT, PATENT, AND SL. BED IS IN LOWEST LEVEL WITH BEDSIDE RAILS UP X3, BRAKES ENGAGED FOR SAFETY, CALL LIGHT IS WITHIN REACH. WILL CONTINUE WITH THE PLAN OF CARE.
[2020-03-30 08:00] VITALS: BP 156/64
--- NOTE | 2020-03-30 08:23 | NUR ---
RD ASSESSMENT & RECOMMENDATIONS SEE CARE ACTIVITY FOR COMPLETE ASSESSMENT DAILY ESTIMATED NEEDS: Needs based on DM, OBESE/ 69kg abw 22-27 kcals/kg 1267-3658 total kcals 1-1.3 g protein/kg 69-89 g total protein 25-30 mL/kg 8303-7492 total fluid mLs NUTRITION DIAGNOSIS: Altered nutrition related lab values R/T DM + on steroidal med and HTN as evidenced by elev BGs ([phone]), pt on Decadron, elev BPs (198/110). CURRENT DIET:CCHO MED PO DIET RECOMMENDATIONS: Maintain CCHO MED/ texture as tolerated ADDITIONAL RECOMMENDATIONS: * Standing wt as able for accurate CBW * Glucerna TID w/ poor PO + snacks as tolerated in b/ w meals * Monitor BGs, need for long acting insulin * Add LOW NA to diet once PO intake consistently >50% * Monitor lytes, replete as needed * Skin integrity: MVI x 1 + Vit C 250mg QD * Kcal count: poor intake, consider appetite stimulant
[2020-03-30] MEDS: Losartan 50mg tab ORAL SCH (08:48)
[2020-03-30] MEDS: Carvedilol 12.5mg tab ORAL SCH (08:50)
[2020-03-30] MEDS: Allopurinol 100mg Tab ORAL SCH (08:52)
[2020-03-30] MEDS: Heparin 5000 units/ml inj SUBQ SCH (08:53)
[2020-03-30] MEDS ORDERED: HYDRALAZINE HCL25 M1 ORAL (09:26)
[2020-03-30] MEDS ORDERED: ALLOPURINOL100 M1 ORAL (09:26)
[2020-03-30] MEDS ORDERED: NOVOLOG100 UNITS1 SUBQ (09:26)
--- NOTE | 2020-03-30 10:40 | Infectious Diseases Prog Note ---
Assessment/Plan Assessment: COVID19 Pneumonia(dx'ed 03/15) Acute hypoxic resp failure- sp NC, now on 2 Lit O2 -03/22 CXR: Cardiomegaly. Decreased and now minimal interstitial congestion -03/21 CXR: Suspect slightly increased interstitial congestion. Cardiomegaly -03/18 rapid COVID PCR + CXR: Possible early infiltrate right midlung. Low grade fever, recurrent No leukocytosis Probable UTI -u/a wbc 60-80, nit +, leuk +3; ucx >100k ESBL E.coli, 20-30k GNR Gram positive bacteremia - Likely contaminants -03/21 Bcx p -03/18 Bcx 1/4 S. warneri, 4 S. hominis; 03/20 Bcx 1/4 S.auricularis; 03/21 Bcx NTD CHF obesity HTN Dm2 CVA Plan: - Monitor off abx as she is stable - repeat UA and Cx - 03/28/20 SP Decadron #10/10 - 03/27/20 SP Meropenem #7/7 for ESBL UTI - 03/25/20 SP IV Vancomcyin #9 - 03/24/20 SP Remdesivir #5/5 -03/22 SP Azithromycin #6 -03/20 SP Cefepime #4 -03/18 SP Ceftriaxone x1 -f/u cx -Monitor CBC/CMP, temperatures -COVID19 isolation - f/u repeat Bcx Thank you for this consult. [facility] will continue to follow. Subjective Allergies: Coded Allergies: No Known Allergies (Unverified , 09/17/12) Afebrile Still on 2L NC Mild leukocytosis decreased Objective Last 24 Hour Vital Signs Date Time Temp Pulse Resp B/P (MAP) Pulse Ox O2 Delivery O2 Flow Rate FiO2 03/30/20 09:00 Nasal Cannula 2.0 03/30/20 08:51 72 156/64 03/30/20 08:50 72 156/64 03/30/20 08:48 156/64 03/30/20 08:00 98.1 68 18 156/64 (94) 100 03/30/20 08:00 68 03/30/20 05:24 155/71 03/30/20 04:00 59 03/30/20 04:00 97.9 65 18 155/71 (99) 99 03/30/20 00:00 98.2 51 16 146/64 (91) 97 03/30/20 00:00 52 03/29/20 21:39 60 147/61 03/29/20 21:37 147/61 03/29/20 21:37 147/61 03/29/20 21:00 Nasal Cannula 2.0 03/29/20 20:00 98.1 60 18 147/61 (89) 99 03/29/20 19:35 98 Nasal Cannula 2.0 28 03/29/20 16:00 71 03/29/20 16:00 99.1 71 20 154/59 (90) 96 03/29/20 13:35 162/69 03/29/20 12:00 70 03/29/20 12:00 98.2 59 22 162/69 (100) 97 Height (Feet): 5 Height (Inches): 5.00 Weight (Pounds): 225 GENERAL: NAD HEENT: NCAT, MMM, EOMI LUNGS: Equal rise and fall of chest B/L no accessory muscle use ABDOMEN: Soft, nondistended Microbiology Date/Time Source Procedure Growth Status 03/29/20 18:20 Urine,Clean Catch Urine Culture - Preliminary NO GROWTH Resulted Laboratory Tests Test 03/29/20 18:20 03/30/20 06:15 03/30/20 10:09 Urine Color Yellow Urine Appearance Slightly cloudy Urine pH 5 (4.5-8.0) Urine Specific [place] 1.020 (1.005-1.035) Urine Protein 2+ (NEGATIVE) H Urine Glucose (UA) Negative (NEGATIVE) Urine Ketones 1+ (NEGATIVE) H Urine Blood Negative (NEGATIVE) Urine Nitrite Negative (NEGATIVE) Urine Bilirubin Negative (NEGATIVE) Urine Urobilinogen 1 MG/DL (0.0-1.0) H Urine Leukocyte Esterase 2+ (NEGATIVE) H Urine RBC 0-2 /HPF (0 - 2) Urine WBC 20-30 /HPF (0 - 2) H Urine Squamous Epithelial Cells Moderate /LPF (NONE/OCC) H Urine Bacteria Few /HPF (NONE) Urine Yeast Moderate /HPF (NONE) H White Blood Count 11.2 K/UL (4.8-10.8) H Red Blood Count 3.66 M/UL (4.20-5.40) L Hemoglobin 10.3 G/DL (12.0-16.0) L Hematocrit 31.1 % (37.0-47.0) L Mean Corpuscular Volume 85 FL (80-99) Mean Corpuscular Hemoglobin 28.1 PG (27.0-31.0) Mean Corpuscular Hemoglobin Concent 33.0 G/DL (32.0-36.0) Red Cell Distribution Width 14.4 % (11.6-14.8) Platelet Count 226 K/UL (150-450) Mean Platelet Volume 6.1 FL (6.5-10.1) L Neutrophils (%) (Auto) 70.8 % (45.0-75.0) Lymphocytes (%) (Auto) 18.2 % (20.0-45.0) L Monocytes (%) (Auto) 8.4 % (1.0-10.0) Eosinophils (%) (Auto) 2.1 % (0.0-3.0) Basophils (%) (Auto) 0.5 % (0.0-2.0) Sodium Level 142 MMOL/L (136-145) Potassium Level 3.7 MMOL/L (3.5-5.1) Chloride Level 107 MMOL/L (98-107) Carbon Dioxide Level 30 MMOL/L (21-32) Anion Gap 5 mmol/L (5-15) Blood Urea Nitrogen 18 mg/dL (7-18) Creatinine 0.8 MG/DL (0.55-1.30) Estimat Glomerular Filtration Rate > 60 mL/min (>60) Glucose Level 136 MG/DL (74-106) H Calcium Level 9.0 MG/DL (8.5-10.1) POC Whole Blood Glucose 137 MG/DL (74-106) H Current Medications Medications (Trade) Dose Ordered Sig/Nick Route PRN Reason Start Time Stop Time Status Last Admin Dose Admin Acetaminophen (Tylenol) 650 mg Q4H PRN ORAL FEVER 03/18/20 14:00 04/17/20 13:59 03/27/20 17:28 Allopurinol (Zyloprim) 200 mg DAILY ORAL 03/19/20 09:00 04/18/20 08:59 03/30/20 08:52 Amlodipine Besylate (Norvasc) 2.5 mg DAILY ORAL 03/23/20 19:45 04/22/20 19:44 03/30/20 08:51 Barium Sulfate (Varibar Honey) 250 ml NOW PRN RAD 03/28/20 13:45 03/31/20 13:39 Barium Sulfate (Varibar [place]) 240 ml NOW PRN RAD 03/28/20 13:45 03/31/20 13:39 Barium Sulfate (Varibar Pudding) 230 ml NOW PRN RAD 03/28/20 13:45 03/31/20 13:39 Barium Sulfate (Varibar Thin Liquid powder) 148 gm NOW PRN RAD 03/28/20 13:45 03/31/20 13:39 Carvedilol (Coreg) 6.25 mg EVERY 12 HOURS ORAL 03/22/20 09:00 04/17/20 20:59 03/30/20 08:50 Chlorhexidine Gluconate (Esther-Hex 2%) 1 applic DAILY@2000 TOPIC 03/28/20 20:00 06/26/20 19:59 03/29/20 21:41 Clonidine HCl (Catapres Tab) 0.1 mg Q4H PRN ORAL For High Blood Pressure 03/22/20 03:45 06/20/20 03:44 03/22/20 03:59 Dextrose (Dextrose 50%) 25 ml Q30M PRN IV Hypoglycemia 03/27/20 11:45 06/25/20 11:44 Dextrose (Dextrose 50%) 50 ml Q30M PRN IV Hypoglycemia 03/27/20 11:45 06/25/20 11:44 Escitalopram Oxalate (Lexapro) 5 mg DAILY ORAL 03/19/20 09:00 04/18/20 08:59 03/30/20 08:51 Heparin Sodium (Porcine) (Heparin 5000 units/ml) 5,000 units EVERY 12 HOURS SUBQ 03/18/20 21:00 05/02/20 20:59 03/30/20 08:53 Hydralazine HCl (Apresoline) 25 mg Q8HR ORAL 03/24/20 09:00 06/20/20 08:59 03/30/20 05:24 Hydralazine HCl (Apresoline) 50 mg EVERY 8 HOURS PRN ORAL For High Blood Pressure 03/22/20 00:30 06/20/20 00:29 Insulin Aspart (NovoLOG) Q6HR SUBQ 03/27/20 12:00 06/25/20 11:59 03/29/20 17:57 Losartan Potassium (Cozaar) 50 mg EVERY 12 HOURS ORAL 03/22/20 15:00 04/21/20 14:59 03/30/20 08:48 Ondansetron HCl (Zofran) 4 mg Q6H PRN IVP Nausea & Vomiting 03/18/20 14:00 04/17/20 13:59 Polyethylene Glycol (Miralax) 17 gm DAILYPRN PRN ORAL Constipation 03/18/20 14:00 04/17/20 13:59 03/22/20 17:26 Promethazine HCl/ Codeine (Phenergan with Codeine) 5 ml Q4H PRN ORAL For Cough 03/18/20 14:00 04/17/20 13:59 Sodium Chloride 1,000 ml @ 50 mls/hr Q20H IV 03/25/20 14:45 04/24/20 14:44 03/26/20 10:45 Mio Oviedo MD Mar 30, 2020 10:40
--- NOTE | 2020-03-30 11:45 | NUR ---
*-*DISCHARGE PLANNING*-* PATIENT HAS BEEN REFERRED BACK TO: [facility] P: [phone]
[2020-03-30 12:00] VITALS: BP 146/62
--- NOTE | 2020-03-30 12:32 | NUR ---
*-*DISCHARGE PLANNED*-* PATIENT HAS BEEN ACCEPTED AND WILL BE DISCHARGED BACK TO: [facility] P: [phone] FOR NURSE TO [facility] REPORT ROOM# 15.A SKILLED [facility] TRANSPORTATION SET FOR 2:30PM [id number]. S/W PATIENT DAUGHTER MARCIA SCHERER, WHO IS IN AGREEMENT WITH DISCHARGE PLAN.
--- NOTE | 2020-03-30 12:47 | Internal Med Progress Note ---
Subjective Date of Service: Mar 30, 2020 Physician Name Bk Kellogg Attending Physician Papa French MD Current Medications Medications (Trade) Dose Ordered Sig/Nick Route PRN Reason Start Time Stop Time Status Last Admin Dose Admin Acetaminophen (Tylenol) 650 mg Q4H PRN ORAL FEVER 03/18/20 14:00 04/17/20 13:59 03/27/20 17:28 Allopurinol (Zyloprim) 200 mg DAILY ORAL 03/19/20 09:00 04/18/20 08:59 03/30/20 08:52 Amlodipine Besylate (Norvasc) 2.5 mg DAILY ORAL 03/23/20 19:45 04/22/20 19:44 03/30/20 08:51 Barium Sulfate (Varibar Honey) 250 ml NOW PRN MC RAD 03/28/20 13:45 03/31/20 13:39 Barium Sulfate (Varibar [place]) 240 ml NOW PRN MC RAD 03/28/20 13:45 03/31/20 13:39 Barium Sulfate (Varibar Pudding) 230 ml NOW PRN MC RAD 03/28/20 13:45 03/31/20 13:39 Barium Sulfate (Varibar Thin Liquid powder) 148 gm NOW PRN MC RAD 03/28/20 13:45 03/31/20 13:39 Carvedilol (Coreg) 6.25 mg EVERY 12 HOURS ORAL 03/22/20 09:00 04/17/20 20:59 03/30/20 08:50 Chlorhexidine Gluconate (Esther-Hex 2%) 1 applic DAILY@2000 TOPIC 03/28/20 20:00 06/26/20 19:59 03/29/20 21:41 Clonidine HCl (Catapres Tab) 0.1 mg Q4H PRN ORAL For High Blood Pressure 03/22/20 03:45 06/20/20 03:44 03/22/20 03:59 Dextrose (Dextrose 50%) 25 ml Q30M PRN IV Hypoglycemia 03/27/20 11:45 06/25/20 11:44 Dextrose (Dextrose 50%) 50 ml Q30M PRN IV Hypoglycemia 03/27/20 11:45 06/25/20 11:44 Escitalopram Oxalate (Lexapro) 5 mg DAILY ORAL 03/19/20 09:00 04/18/20 08:59 03/30/20 08:51 Heparin Sodium (Porcine) (Heparin 5000 units/ml) 5,000 units EVERY 12 HOURS SUBQ 03/18/20 21:00 05/02/20 20:59 03/30/20 08:53 Hydralazine HCl (Apresoline) 25 mg Q8HR ORAL 03/24/20 09:00 06/20/20 08:59 03/30/20 05:24 Hydralazine HCl (Apresoline) 50 mg EVERY 8 HOURS PRN ORAL For High Blood Pressure 03/22/20 00:30 06/20/20 00:29 Insulin Aspart (NovoLOG) Q6HR SUBQ 03/27/20 12:00 06/25/20 11:59 03/29/20 17:57 Losartan Potassium (Cozaar) 50 mg EVERY 12 HOURS ORAL 03/22/20 15:00 04/21/20 14:59 03/30/20 08:48 Ondansetron HCl (Zofran) 4 mg Q6H PRN IVP Nausea & Vomiting 03/18/20 14:00 04/17/20 13:59 Polyethylene Glycol (Miralax) 17 gm DAILYPRN PRN ORAL Constipation 03/18/20 14:00 04/17/20 13:59 03/22/20 17:26 Promethazine HCl/ Codeine (Phenergan with Codeine) 5 ml Q4H PRN ORAL For Cough 03/18/20 14:00 04/17/20 13:59 Sodium Chloride 1,000 ml @ 50 mls/hr Q20H IV 03/25/20 14:45 04/24/20 14:44 03/26/20 10:45 Allergies: Coded Allergies: No Known Allergies (Unverified , 09/17/12) ROS Limited/Unobtainable: Yes Subjective 74 YO F admitted with fever. Now COVID 19 positive and pneumonia. Cover for Int [facility]-Dr French Objective Last Vital Signs Date Time Temp Pulse Resp B/P (MAP) Pulse Ox O2 Delivery O2 Flow Rate FiO2 03/30/20 09:00 Nasal Cannula 2.0 03/30/20 08:51 72 156/64 03/30/20 08:00 98.1 18 100 03/29/20 19:35 28 Laboratory Tests Test 03/29/20 18:20 03/30/20 06:15 03/30/20 10:09 Urine Color Yellow Urine Appearance Slightly cloudy Urine pH 5 (4.5-8.0) Urine Specific [place] 1.020 (1.005-1.035) Urine Protein 2+ (NEGATIVE) H Urine Glucose (UA) Negative (NEGATIVE) Urine Ketones 1+ (NEGATIVE) H Urine Blood Negative (NEGATIVE) Urine Nitrite Negative (NEGATIVE) Urine Bilirubin Negative (NEGATIVE) Urine Urobilinogen 1 MG/DL (0.0-1.0) H Urine Leukocyte Esterase 2+ (NEGATIVE) H Urine RBC 0-2 /HPF (0 - 2) Urine WBC 20-30 /HPF (0 - 2) H Urine Squamous Epithelial Cells Moderate /LPF (NONE/OCC) H Urine Bacteria Few /HPF (NONE) Urine Yeast Moderate /HPF (NONE) H White Blood Count 11.2 K/UL (4.8-10.8) H Red Blood Count 3.66 M/UL (4.20-5.40) L Hemoglobin 10.3 G/DL (12.0-16.0) L Hematocrit 31.1 % (37.0-47.0) L Mean Corpuscular Volume 85 FL (80-99) Mean Corpuscular Hemoglobin 28.1 PG (27.0-31.0) Mean Corpuscular Hemoglobin Concent 33.0 G/DL (32.0-36.0) Red Cell Distribution Width 14.4 % (11.6-14.8) Platelet Count 226 K/UL (150-450) Mean Platelet Volume 6.1 FL (6.5-10.1) L Neutrophils (%) (Auto) 70.8 % (45.0-75.0) Lymphocytes (%) (Auto) 18.2 % (20.0-45.0) L Monocytes (%) (Auto) 8.4 % (1.0-10.0) Eosinophils (%) (Auto) 2.1 % (0.0-3.0) Basophils (%) (Auto) 0.5 % (0.0-2.0) Sodium Level 142 MMOL/L (136-145) Potassium Level 3.7 MMOL/L (3.5-5.1) Chloride Level 107 MMOL/L (98-107) Carbon Dioxide Level 30 MMOL/L (21-32) Anion Gap 5 mmol/L (5-15) Blood Urea Nitrogen 18 mg/dL (7-18) Creatinine 0.8 MG/DL (0.55-1.30) Estimat Glomerular Filtration Rate > 60 mL/min (>60) Glucose Level 136 MG/DL (74-106) H Calcium Level 9.0 MG/DL (8.5-10.1) POC Whole Blood Glucose 137 MG/DL (74-106) H Microbiology Date/Time Source Procedure Growth Status 03/29/20 18:20 Urine,Clean Catch Urine Culture - Preliminary NO GROWTH Resulted Intake and Output 03/29/20 03/30/20 19:00 07:00 Intake Total 180 ml Output Total 450 ml Balance -270 ml Intake Oral 180 ml Output Urine Total 450 ml # Voids 2 Objective PHYSICAL EXAMINATION: GENERAL: The patient awake, responsive, no acute distress. HEENT: Head and neck examination, pupils are equal and reactive to light. Extraocular muscles intact. Neck was supple. No JVD. LUNGS: Good air entry. Decreased air in bases. HEART: S1, S2. Regular rhythm. No gallops. ABDOMEN: Soft, nontender, nondistended. Mildly obese. EXTREMITIES: No cyanosis, clubbing, or edema. NEUROLOGIC: Cranial nerves II through XII grossly intact. The patient moving all extremities. RECTAL: Refused and deferred. GENITOURINARY: Refused and deferred. PSYCHIATRIC: Mood and affect is intact. Assessment/Plan Assessment/Plan ASSESSMENT: 1. COVID-19 pneumonia. 2. Acute hypoxemic respiratory failure. 3. Low-grade fever, possible due to the pneumonia. 4. Possible urinary tract infection. 5. Congestive heart failure, chronic. 6. Obesity. 7. Hypertension. 8. Diabetes type 2. 9. History of CVA. 10. UTI=ESBL E. Coli PLAN: 1. Admit the patient to monitored unit. 2. antibiotic= Monitor off ABX; S/P cefepime, vancomycin,meropenem.and azithromycin 3. Continue Decadron IV. 4. S/P Remdesivir 5. DVT prophylaxis=heparin subcutaneous. 6. Code status is Full Code. 7. Dr. Calli Lux=Pulmonary Critical Care 8. Dr. Hernandez = Infectious Disease kB Kellogg MD Mar 30, 2020 12:46
[2020-03-30 14:13] VITALS: BP 146/62
--- NOTE | 2020-03-30 15:07 | NUR ---
NURSE NOTES: PATIENT IS DISCHARGED PER DR. KLINE'S ORDER TO [facility]. ALL DISCHARGE PROTOCOLS FOLLOWED AND CARRIED OUT. LAUNDRY MACHINE OPERATOR REMOVED, PICC LINE REMOVED PER MD'S ORDER. NO BLEEDING, NO INFILTRATION NOTED. INTER-FACILITY REPORT GIVEN TO CARI JONAS AT THE SNF. BELONGING LIST AKNOWLEDGED, SIGNED, PATIENT UNABLE TO SIGN AND GIVEN TO TRANSPORTED. PATIENT IS IN STABLE CONDITION.
--- NOTE | 2020-03-31 07:43 | Discharge Summary ---
Discharge Summary Discharge Summary _ DATE OF ADMISSION: 03/18/2020 DATE OF DISCHARGE: 03/30/2020 DISCHARGED BY: Dr. French REASON FOR ADMISSION: 74 years old female with past medical history significant for congestive heart failure, morbid obesity, hypertension, diabetes mellitus type 2, CVA, [facility] after she was noted to have COVID-19 pneumonia recently. Patient presented complaining of shortness of breath and cough. In the facility COVID swab was performed on 03/15 with positive result on 03/17 reported. Chest x-ray for 03/17 revealed bilateral infiltrates. Patient subsequently was referred to the hospital from the nursing facility for COVID pneumonia. In ED patient required supplemental oxygen . She had low-grade fever , was tachypneic , and blood pressure was elevated 198/110. Laboratory work-up revealed no leukocytosis ,hemoglobin 11.2 ,hematocrit 35.9. D-dimer 0.7. Ferritin 299 . CRP 6.7. Stable electrolytes. BUN 26, creatinine 1.1. Glucose 143. Lactic acid 1.0. Stable LFT. Troponin negative , pro BNP 86 . EKG revealed sinus rhythm , no acute ischemic changes ; first-degree AV block . Urinalysis revealed +3 protein, +3 leukocyte esterase, pyuria and moderate bacteria. Rapid COVID-19 in ED was positive. Chest x-ray revealed bilateral opacity, cardiomegaly . In emergency department patient received IV steroids, Lovenox , empiric antibiotic and admitted for further management. CONSULTANTS: progress worker Dr. Veloz pulmonary Dr. Lux ID specialist Dr. Hernandez [facility] COURSE: Patient admitted to telemetry floor to isolation room. Patient was on antibiotic as per ID recommendation. Patient received IV steroids for 10 days and Remdesivir for 5 days. DVT prophylaxis with heparin provided. Patient was followed -up with chest x-ray. Supplemental oxygen provided Patient wand titrated to keep pulse oximetry above 92%. Pulmonary toilet provided. Patient was followed up with inflammatory markers. CRP prior to discharge trended down to normal. Antitussive provided as needed. Urine culture revealed E. coli ESBL and Klebsiella. Initial blood culture were positive with 1/4 Staph warneri and 1/4 Staph hominis; repeated blood culture on 03/20 showed 1/4 Staph auricularis . Blood culture on 03/21 were negative. Positive blood culture were most likely contaminant. Patient completed antibiotics while in the hospital. Patient with a history of cardiomyopathy. Guideline directed medical therapy continued with beta-kathi and TK inhibitor. Volumes were closely monitored. No need for routine diuretics. spot diuresis as needed. Blood pressure was managed with calcium channel kathi , beta-kathi and ARB. Hydralazine was on board as needed for blood pressure spikes. Blood pressure stabilized. Allopurinol continued. Blood sugar was managed with sliding scale of insulin. Supportive care provided. Lexapro continued. Patient clinically stabilized and was ready for [facility] for [facility] of care. FINAL DIAGNOSES: COVID-19 pneumonia Acute hypoxemic respiratory failure secondary to COVID infection UTI with E. coli ESBL and Klebsiella, s/p treatment Hypertension Diabetes mellitus Chronic CHF with history of cardiomyopathy History of breast cancer Gout History of CVA Obesity Major depressive disorder DISCHARGE MEDICATIONS: See Medication Reconciliation list. DISCHARGE INSTRUCTIONS: [facility]. Follow up with medical doctor at the facility. Angelina Alvarado NP Mar 31, 2020 07:43
== END 2020-03-30 15:06 | DRG 177 ==
LOC: EDSEX 09:38 → EDBD 09:38 → EMR 09:55 → 2E 10:07 → EDBEDREQ 12:59
PROC: 02H633Z Insertion of Infusion Device into Right Atrium, Percutaneous Approach (ICD-10-PCS; principal; 2020-03-28)
DX: U07.1 COVID-19 (principal); J12.89 Other viral pneumonia; J96.01 Acute respiratory failure with hypoxia; N39.0 Urinary tract infection, site not specified; Z16.12 Extended spectrum beta lactamase (ESBL) resistance; I42.9 Cardiomyopathy, unspecified; F33.9 Major depressive disorder, recurrent, unspecified; I11.0 Hypertensive heart disease with heart failure; E11.9 Type 2 diabetes mellitus without complications; Z86.73 Personal history of transient ischemic attack (TIA), and cerebral infarction without residual deficits; B96.20 Unspecified Escherichia coli [E. coli] as the cause of diseases classified elsewhere; B96.1 Klebsiella pneumoniae [K. pneumoniae] as the cause of diseases classified elsewhere; I50.9 Heart failure, unspecified; M10.9 Gout, unspecified; Z85.3 Personal history of malignant neoplasm of breast; E66.9 Obesity, unspecified; Z68.35 Body mass index [BMI] 35.0-35.9, adult
CPT/HCPCS: 36415; 36569; 71045; 76937; 80048; 80053; 80069; 80202; 81001; 81003; 82248; 82550; 82553; 82728; 82962; 83605; 83615; 83690; 83735; 83880; 83930; 84100; 84484; 84550; 85025; 85379; 85384; 85610; 85651; 85730; 86140; 86703; 87040; 87081; 87086; 87181; 87324; 93005; 96365; 96367; 96375; 99291; J1815; J3490; J8499; U0002

== ENCOUNTER 2020-04-01 13:49 | Inpatient (IN) | payer MEDICARE, OTHER ==
[~2020-04-01] VITALS: Ht 170.2 cm; Wt 107.5 kg
[~2020-04-01 13:49] MED LIST changes: +ACETAMINOPHEN325 M1 ORAL; +ACETAMINOPHEN500 M3 ORAL; +AMLODIPINE BESY10 MG ORAL; +CRESTOR10 M2 ORAL; +FERROUS SULFAT325 MG ORAL; +FUROSEMIDE20 M1 ORAL; +HYDRALAZINE HCL25 M1 ORAL; +HYDROCHLOROTH12.5 MG ORAL; +LIDOCAINE HC28.35 GM TP; +LOSARTAN POTASS50 MG ORAL; +MAGNESIUM400 M1 PO; +METFORMIN HCL1000 M1 ORAL; +MULTIVITAMINS1 EAC8 ORAL; +NOVOLIN R100 UNIT/1 SUBQ; +NOVOLOG100 UNIT/5 SUBQ; +VITAMIN C500 M1 ORAL
[2020-04-01 14:11] VITALS: BP 162/74
--- NOTE | 2020-04-01 14:16 | NUR ---
ED Nurse Note:pt. was BIBA from SNF with ALOC , she is A/Ox1, bed bound, VSS, placed on covid isolation, secured entrance monitor
--- NOTE | 2020-04-01 14:35 | Emergency Room Report ---
History of Present Illness General Chief Complaint: Altered Level of Consciousness Source: Medical Record, EMS Present Illness HPI Disclaimer: Please note that this report is being documented using [employer] technology. This can lead to erroneous entry secondary to incorrect interpretat ion by the dictating instrument. HPI: 74-year-old female history of hypertension diabetes stroke, recent COVID-19 presents from [facility] facility secondary to altered mental status. Apparently patient has been altered since the of last month. Decreased p.o. intake, not eating her food, and being noncompliant with medications. She was admitted 2 weeks ago for COVID-19 pneumonia and respiratory failure. Allergies: Coded Allergies: No Known Allergies (Unverified , 09/17/12) COVID-19 Screening Contact w/high risk pt: Yes Experienced COVID-19 symptoms?: Yes COVID-19 Testing performed BURRER HAND: Yes COVID-19 Screening: Positive COVID-19 COVID-19 Testing Source: [facility] [place] Patient History Last Menstrual Period: na Reviewed Nursing Documentation: PMH: Agreed; PSxH: Agreed Nursing Documentation-PMH Past Medical History: No History, Except For Hx Cardiac Problems: Yes Hx Hypertension: Yes Hx Diabetes: Yes Hx Cancer: Yes Hx Gastrointestinal Problems: Yes Hx Cerebrovascular Accident: Yes Review of Systems All Other Systems: negative except mentioned in HPI Physical Exam Vital Signs Date Time Temp Pulse Resp B/P (MAP) Pulse Ox O2 Delivery O2 Flow Rate FiO2 04/01/20 13:49 98.2 89 18 162/74 (103) 96 Room Air Sp02 EP Interpretation: reviewed, normal General Appearance: no apparent distress, Chronically Ill Head: normocephalic, atraumatic Eyes: bilateral eye PERRL, bilateral eye EOMI ENT: hearing grossly normal, moist mucus membranes Neck: full range of motion, supple Respiratory: lungs clear, normal breath sounds, no rhonchi, no respiratory distress, no retraction, no wheezing Cardiovascular #1: normal peripheral pulses, regular rate, rhythm, no murmur Gastrointestinal: soft, non-distended, no guarding, tenderness - Tenderness noted to bilateral lower quadrants Neurologic: alert, no focal defects, other - Patient was alert but not oriented, did answer some questions but mostly confused Skin: normal color, warm/dry Medical Decision Making Diagnostic Impression: Primary Impression: Altered level of consciousness Additional Impressions: UTI (urinary tract infection) 2019 novel coronavirus disease (COVID-19) Hypertension ER Course MDM: Differential diagnosis included but not limited to dehydration UTI COVID-19 renal failure pneumonia to name a few Clinical course-septic work-up initiated in the ER COVID test and IV fluids ordered. Laboratory studies demonstrated evidence of mild leukocytosis, urinalysis with leukocytes and leukocyte esterase with bacteria on straight cath, chest x-ray showed no obvious focal infiltrate. Patient's repeat COVID-19 testing was positive. As patient is altered evidence of UTI and persistent COVID-[address] on the medical floor. IV antibiotics given. Clonidine given for elevated blood pressure. Case discussed with patient's primary care doctor, Dr. French Labs - Laboratory Tests Test 04/01/20 14:45 White Blood Count 12.8 K/UL (4.8-10.8) H Red Blood Count 3.88 M/UL (4.20-5.40) L Hemoglobin 11.1 G/DL (12.0-16.0) L Hematocrit 34.7 % (37.0-47.0) L Mean Corpuscular Volume 89 FL (80-99) Mean Corpuscular Hemoglobin 28.5 PG (27.0-31.0) Mean Corpuscular Hemoglobin Concent 31.9 G/DL (32.0-36.0) L Red Cell Distribution Width 15.5 % (11.6-14.8) H Platelet Count 197 K/UL (150-450) Mean Platelet Volume 7.6 FL (6.5-10.1) Neutrophils (%) (Auto) 68.4 % (45.0-75.0) Lymphocytes (%) (Auto) 20.6 % (20.0-45.0) Monocytes (%) (Auto) 7.3 % (1.0-10.0) Eosinophils (%) (Auto) 2.2 % (0.0-3.0) Basophils (%) (Auto) 1.5 % (0.0-2.0) Urine Color Pale yellow Urine Appearance Slightly cloudy Urine pH 6 (4.5-8.0) Urine Specific [place] 1.015 (1.005-1.035) Urine Protein 2+ (NEGATIVE) H Urine Glucose (UA) Negative (NEGATIVE) Urine Ketones 1+ (NEGATIVE) H Urine Blood 1+ (NEGATIVE) H Urine Nitrite Negative (NEGATIVE) Urine Bilirubin Negative (NEGATIVE) Urine Urobilinogen Normal MG/DL (0.0-1.0) Urine Leukocyte Esterase 1+ (NEGATIVE) H Urine RBC 2-4 /HPF (0 - 2) H Urine WBC 20-30 /HPF (0 - 2) H Urine Squamous Epithelial Cells Moderate /LPF (NONE/OCC) H Urine Bacteria Many /HPF (NONE) H Sodium Level 144 MMOL/L (136-145) Potassium Level 4.0 MMOL/L (3.5-5.1) Chloride Level 106 MMOL/L (98-107) Carbon Dioxide Level 27 MMOL/L (21-32) Anion Gap 11 mmol/L (5-15) Blood Urea Nitrogen 15 mg/dL (7-18) Creatinine 0.8 MG/DL (0.55-1.30) Estimated Glomerular Filtration Rate > 60 mL/min (>60) Glucose Level 184 MG/DL (74-106) H Lactic Acid Level 1.20 mmol/L (0.4-2.0) Calcium Level 9.1 MG/DL (8.5-10.1) Total Bilirubin 0.7 MG/DL (0.2-1.0) Aspartate Amino Transferase (AST) 26 U/L (15-37) Alanine Aminotransferase (ALT) 32 U/L (12-78) Alkaline Phosphatase 118 U/L (46-116) H Total Creatine Kinase 43 U/L (26-308) Creatine Kinase MB < 0.5 NG/ML (0.0-3.6) Creatine Kinase MB Relative Index 1.1 Troponin I 0.005 ng/mL (0.000-0.056) Total Protein 7.5 G/DL (6.4-8.2) Albumin 3.1 G/DL (3.4-5.0) L Globulin 4.4 g/dL Albumin/Globulin Ratio 0.7 (1.0-2.7) L Lipase 80 U/L (73-393) Microbiology Date/Time Source Procedure Growth Status 04/01/20 14:45 Nasopharynx SARS-CoV-2 RdRp Gene Assay - Final Complete EKG Diagnostic Results Rate: normal Rhythm: NSR ST Segments: other - Left axis deviation, LVH, T wave flattening laterally Other Impression Specific changes Rhythm Strip Diag. Results EP Interpretation: yes Rate: 60 Rhythm: NSR, no PVC's, no ectopy Chest X-Ray Diagnostic Results Chest X-Ray Diagnostic Results : Chest X-Ray Ordered: Yes # of Views/Limited/Complete: 1 View Indication: Shortness of Breath EP Interpretation: Yes Interpretation: no consolidation, no effusion, other - Cardiomegaly Electronically Signed by: Rich Gardner MD Last Vital Signs Date Time Temp Pulse Resp B/P (MAP) Pulse Ox O2 Delivery O2 Flow Rate FiO2 04/01/20 14:13 89 18 Room Air 04/01/20 14:11 98.2 162/74 96 Disposition: ADMITTED INPATIENT Condition: Serious Rich Gardner M.D. Apr 01, 2020 14:35
--- NOTE | 2020-04-01 14:45 | NUR ---
ED Nurse Note: iv access established. blood, initial lactic, blood cultures, urine, covid mrsa vre cre collected; sent down to lab. ekg completed at bedside; nsr. iv infusion initiated as prescribed.
[2020-04-01 15:25] LABS: BASOPHILS % (AUTO) 1.5 % (0.0-2.0); EOSINOPHILS % (AUTO) 2.2 % (0.0-3.0); HEMATOCRIT 34.7 % (37.0-47.0); HEMOGLOBIN 11.1 G/DL (12.0-16.0); LYMPHOCYTES % (AUTO) 20.6 % (20.0-45.0); MEAN CORPUSCULAR VOLUME 89 FL (80-99); MONOCYTES % (AUTO) 7.3 % (1.0-10.0); NEUTROPHILS % (AUTO) 68.4 % (45.0-75.0); PLATELET COUNT 197 K/UL (150-450); RED BLOOD COUNT 3.88 M/UL (4.20-5.40); RED CELL DISTRIBUTION WIDTH 15.5 % (11.6-14.8); WHITE BLOOD COUNT 12.8 K/UL (4.8-10.8)
[2020-04-01 15:26] LABS: APPEARANCE,URINE SLIGHTLY CLOUDY; BILIRUBIN, URINE NEGATIVE (NEGATIVE); GLUCOSE, URINE (UA) NEGATIVE (NEGATIVE); KETONES,URINE 1+ (NEGATIVE); LEUKOCYTE ESTERASE ,URINE 1+ (NEGATIVE); NITRITE,URINE NEGATIVE (NEGATIVE); PH,URINE 6 (4.5-8.0); PROTEIN,URINE 2+ (NEGATIVE); UROBILINOGEN,URINE NORMAL MG/DL (0.0-1.0)
[2020-04-01 15:30] LABS: COLOR,URINE PALE YELLOW
[2020-04-01 15:48] LABS: ANION GAP 11 mmol/L (5-15); BLOOD UREA NITROGEN 15 mg/dL (7-18); CALCIUM 9.1 MG/DL (8.5-10.1); CARBON DIOXIDE 27 MMOL/L (21-32); CHLORIDE 106 MMOL/L (98-107); CREATININE 0.8 MG/DL (0.55-1.30); SODIUM 144 MMOL/L (136-145)
[2020-04-01 16:00] LABS: ALANINE AMINOTRANSFERASE 32 U/L (12-78); ALBUMIN 3.1 G/DL (3.4-5.0); ALBUMIN/GLOBULIN RATIO 0.7 (1.0-2.7); ALKALINE PHOSPHATASE 118 U/L (46-116); ASPARTATE AMINO TRANSFERASE 26 U/L (15-37); BILIRUBIN,TOTAL 0.7 MG/DL (0.2-1.0); CKMB < 0.5 NG/ML (0.0-3.6); CREATINE KINASE 43 U/L (26-308)
[2020-04-01] MEDS ORDERED: cefTRIAXone 1 GM in NS 55 ML IVPB ONE (16:00)
--- NOTE | 2020-04-01 16:04 | NUR ---
ED Nurse Note:blood urine covid ,MRSA/VRE swab sent to labs
[2020-04-01 16:23] VITALS: BP 180/61
--- NOTE | 2020-04-01 16:27 | NUR ---
ED Nurse Note: sacral wound noted; photos taken and uploaded. BP remains elevated; ermd made aware. received verbal order for 0.1 mg clonidine po; noted and carried out. pt tolerated well.
--- NOTE | 2020-04-01 17:00 | NUR ---
ED Nurse Note: report given to savana velasquez. patient to be admitted to [place] [id number]. endorsed elevated bp and antihypertensive admin. ermd aware of bp and cleared patient for transfer.
--- NOTE | 2020-04-01 17:30 | NUR ---
TRANSFER TO FLOOR: Patient transferred to med surg 412 as ordered, per em canales. Report given to savana velasquez. patient stable for transport. transferred to unit via gurney with 2 rn. belongings and admission packet sent with patient.
--- NOTE | 2020-04-01 17:40 | NUR ---
NURSE NOTES: Received report from ED RN Nasrin. Patient received via [place] admitted from [facility]. Patient is AAO x 1 to self, able to make some needs known, speaks one-word responses. VSS. Pt is on bedrest, nonambulatory, able to assist with turning. Patient is on RA, lung sounds CTA, c/o pain when moving her upper extremities. Abd large, soft, nontender, active bowel sounds x 4 small BM noted, brown and soft. Incontinent x 2, purewick applied and connected to wall suction. Pressure injury noted to L gluteal fold. Dry dressing applied. Applied protection to B heels. pIV 18 G to R hand, asymptomatic and intact. Admission orders received. Fall precautions enforced. Bed in lowest position, locked, with alarm on. Call light within reach. Will continue POC.
[2020-04-01] MEDS ORDERED: Albuterol/Ipratropium 3ml neb HHN PRN (17:45)
[2020-04-01] MEDS ORDERED: Miralax 17gm pkt ORAL PRN (17:45)
--- NOTE | 2020-04-01 17:48 | Diagnostic Imaging Report ---
Indication: Shortness of breath Technique: One view of the chest Comparison: 03/28/2020 Findings: The heart is enlarged. There is decreased bilateral interstitial and airspace opacities, with minimal residual, reticular the left. The pleural spaces are grossly clear. Impression: Improved and nearly resolved bilateral interstitial and airspace infiltrates versus edema, over 4 days
--- NOTE | 2020-04-01 19:36 | NUR ---
NURSE HAND-OFF: Important Events on Shift: Pt admitted to unit; poor appetite; pressure injury to L gluteal fold noted; Patient Status: elevated BP Diet: CCHO medium Pending Orders: n/a Pending Results/Labs: n/a Pending MD notification: n/a Latest Vital Signs: Temperature 98.2 , Pulse 55 , B/P 162 /62 , Respiratory Rate 14 , O2 SAT 99 , Room Air, O2 Flow Rate . Vital Sign Comment: monitor BP Latest Garcia Fall Score: 50 Fall Risk: High Risk Safety Measures: Call light , Bed Alarm Zone 1, Side Rails Side Rails x3, Bed position Low and Locked. Fall Precautions: Yellow Socks Yellow Gown Door Sign Patient Fall Education Report given to PRITESH Daniels. Endorsed POC.
--- NOTE | 2020-04-01 19:40 | NUR ---
NURSE NOTES: Received report from Robin JONAS. Patient is AAO x 1 to self, able to make some needs known, moans when you touch her or try to move her, speaks one-word responses. VSS. Pt is on bedrest, nonambulatory, able to assist somewhat with turning. Patient is on RA, Abd large, soft, nontender, Incontinent x 2, purewick in place. Pressure injury upon assessment to R lower gluteal fold. Barrier and optifoam clean, dry and intact. optifoam to Bilat heels. IV 18 gauge to R wrist, saline locked, asymptomatic, intact. Fall precautions and aspiration precautions in place. Bed in lowest position, locked, with bed alarm on. Call light within reach. Will continue plan of care.
[2020-04-01 20:00] VITALS: BP 142/57
[2020-04-01] MEDS: Vancomycin 1 GM in NS 275 ML IVPB SCH (20:25)
--- NOTE | 2020-04-01 21:03 | History & Physical ---
History and Physical History & Physicial -[id number] Papa French MD Apr 01, 2020 21:03
[2020-04-01] MEDS: NovoLOG Insulin Flexpen SUBQ SCH (21:05)
[2020-04-01] MEDS: Heparin 5000 units/ml inj SUBQ SCH (21:06)
[2020-04-01] MEDS: Carvedilol 12.5mg tab ORAL SCH (21:06)
[2020-04-01] MEDS: Cefepime HCl 2 GM in NS 110 ML IV SCH (21:07)
--- NOTE | 2020-04-01 22:45 | History and Physical Report ---
DATE OF ADMISSION: 04/01/2020 CHIEF COMPLAINT: Decreased oral intake, altered mental status, and confusion. HISTORY OF PRESENT ILLNESS: This is a 74-year-old very unfortunate female with past medical history significant for congestive heart failure, morbid obesity, hypertension, diabetes type 2, prior history of stroke, and history of recent COVID-19 infection, who presented initially to [facility] on 03/18/2020 through 03/30/2020. The patient was noted to have been admitted for COVID-19 pneumonia and subsequently was treated for pneumonia with acute hypoxemic respiratory failure secondary to COVID infection as well as the ESBL E. coli Klebsiella UTI. The patient was discharged back to the nursing facility on March 30, 2020. However, since arrival, the patient was not eating, becomes more altered than usual and less responsive, subsequently the patient was transferred back to the hospital for further evaluation and therapy. Shortly after initial evaluation in the emergency department, the patient was admitted to the hospital with altered mental status, most likely secondary to toxic metabolic encephalopathy, possible as a result of the infection and COVID-19 infection. PAST MEDICAL HISTORY/PAST SURGICAL HISTORY: As above, 1. History of COVID-19 pneumonia with acute hypoxemic respiratory failure secondary to COVID infection and E. coli ESBL as well as Klebsiella UTI. 2. Hypertension. 3. Dyslipidemia. 4. Chronic congestive heart failure with prior history of cardiomyopathy. 5. Breast cancer. 6. Gout. 7. History of CVA. 8. Morbid obesity. 9. Major depressive disorder. MEDICATIONS: Please refer to medication reconciliation. ALLERGIES: No known drug allergies. SOCIAL HISTORY: assisted resident. No smoking, alcohol, or drugs. FAMILY HISTORY: Noncontributory. REVIEW OF SYSTEMS: Very limited secondary to the patient's status. The patient is not responding, altered. No shortness of breath. No fever or chills was reported. No nausea, vomiting, or diarrhea. No hemoptysis or bright red blood per rectum. PHYSICAL EXAMINATION: VITAL SIGNS: On admission, temperature 98.2, pulse of 89, respirations 18, and blood pressure 162/74. GENERAL: The patient is altered, less responsive, however, opens her eyes. HEAD AND NECK: Pupils are equal and reactive to light. Extraocular muscles intact. Neck was supple. No JVD. LUNGS: Good air entry. Decreased air in bases. No wheeze or rhonchi. HEART: S1, S2. Distant heart sounds. No murmurs or gallops. ABDOMEN: Soft, nondistended, and nontender. Mildly obese. EXTREMITIES: No cyanosis, clubbing, or edema. NEUROLOGIC: Limited secondary to the patient's status; however, the patient is moving all the extremities spontaneously. Cranial nerves II through XII grossly intact. RECTAL: Refused and deferred. GENITOURINARY: Refused and deferred. LABORATORY DATA: On admission from the emergency department, WBC of 12, hemoglobin 11, hematocrit 34, platelets 197,000. Glucose is 144. 4.0, chloride 106, bicarb 27, BUN 15, creatinine 0.8, and glucose is 184. Lactate is 1.2. Alkaline phosphatase is 118. Troponin 0.05. Albumin is 3.1. 0.7. UA is 20 to 30 wbc, 2 to 4 rbc, +1 leukocytes, +1 ketone, +2 protein, many bacteria. The patient's chest x-ray improved and nearly resolved bilateral interstitial and airspace infiltrates versus edema. ASSESSMENT: 1. Altered mental status, most likely secondary to toxic metabolic encephalopathy as a result of infection. 2. Recurrent urinary tract infection. 3. History of COVID-19 infection, pneumonia. 4. Prior history of acute hypoxemic respiratory failure due to COVID-19 infection. 5. Prior history of E. coli ESBL as well as Klebsiella urinary tract infection. 6. Hypertension. 7. Diabetes type 2. 8. Chronic congestive heart failure. 9. Cardiomyopathy. 10. History of breast cancer. 11. Gout. 12. Prior history of CVA. 13. Morbid obesity. 14. Major depressive disorder. PLAN: Admit the patient to medical floor. We will follow up with cultures. Start the patient on broad-spectrum antibiotic with cefepime and vancomycin. Resume fci medication. Code status at this time is Full Code. DVT prophylaxis, heparin subcutaneous. We will follow up with Dr. Lux, Pulmonary Critical Care and Dr. Oviedo from Infectious Disease. Papa French M.D. DR: MARCO JOB#: [id number] CC:
[2020-04-02] VITALS: BP 115/74
[2020-04-02 04:00] VITALS: BP 145/60
[2020-04-02] MEDS: NovoLOG Insulin Flexpen SUBQ SCH ×4 (06:01→22:20)
--- NOTE | 2020-04-02 06:04 | NUR ---
NURSE NOTES: Pt did not urinate through the night, bladder scan done and only 130 ml retained. Pt is being given water and has had low PO intake and told me she hasnt been drinking enough.
--- NOTE | 2020-04-02 06:15 | NUR ---
NURSE NOTES: Left message with Dr Lux and Manolo, regarding pt low po intake, MD French aware of low intake. Pt had no urine overnight and therefore was unable to collect urine for UA and urine culture. Asked MD if he wanted to begin fluids or how to get urine collected, saw a note regarding an indwelling catheter but no order for catheter insertion. waiting for orders
[2020-04-02 07:00] LABS: EOSINOPHILS % (AUTO) 2.2 % (0.0-3.0); HEMATOCRIT 29.1 % (37.0-47.0); HEMOGLOBIN 9.6 G/DL (12.0-16.0); LYMPHOCYTES % (AUTO) 16.5 % (20.0-45.0); MEAN CORPUSCULAR VOLUME 86 FL (80-99); MONOCYTES % (AUTO) 9.4 % (1.0-10.0); NEUTROPHILS % (AUTO) 68.9 % (45.0-75.0); PLATELET COUNT 156 K/UL (150-450); RED BLOOD COUNT 3.38 M/UL (4.20-5.40); RED CELL DISTRIBUTION WIDTH 14.7 % (11.6-14.8); WHITE BLOOD COUNT 11.6 K/UL (4.8-10.8)
[2020-04-02 07:11] LABS: ALANINE AMINOTRANSFERASE 25 U/L (12-78); ALBUMIN 2.8 G/DL (3.4-5.0); ALBUMIN/GLOBULIN RATIO 0.8 (1.0-2.7); ALKALINE PHOSPHATASE 97 U/L (46-116); ANION GAP 7 mmol/L (5-15); ASPARTATE AMINO TRANSFERASE 17 U/L (15-37); BILIRUBIN,TOTAL 0.8 MG/DL (0.2-1.0); BLOOD UREA NITROGEN 13 mg/dL (7-18); CALCIUM 8.6 MG/DL (8.5-10.1); CARBON DIOXIDE 26 MMOL/L (21-32); CHLORIDE 110 MMOL/L (98-107); CREATININE 0.8 MG/DL (0.55-1.30); POTASSIUM 3.3 MMOL/L (3.5-5.1); SODIUM 143 MMOL/L (136-145)
--- NOTE | 2020-04-02 07:35 | NUR ---
NURSE NOTES: Received report from PRITESH Daniels. Patient is AAO x 2-[address], able to make some needs known,more alert than yesterday. Pt is on bedrest, nonambulatory, able to assist with turning. Patient is on RA, lung sounds CTA, c/o pain when moving her upper extremities. Abd large, soft, nontender, active bowel sounds x 4 small BM noted, brown and soft. Incontinent x 2, purewick applied and connected to wall suction but was ineffective overnight. Patient noted with large amount of urine output on pad. Dry dressing reapplied to L gluteal fold. Optifoam present for protection to B heels. pIV 18 G to R hand, asymptomatic and intact. Fall precautions reinforced. Bed in lowest position, locked, with alarm on. Call light within reach. Will continue POC.
[2020-04-02] MEDS: Vancomycin 1 GM in NS 275 ML IVPB SCH ×2 (07:48→20:24)
[2020-04-02 08:00] VITALS: BP 155/67
--- NOTE | 2020-04-02 08:12 | NUR ---
NURSE HAND-OFF: Important Events on Shift: Pt was very thirsty and drank more water at end of shift, pt finally voided at very end of shift as she had not throughout the shift. Informed MD French and Jose J that pt was not on IV fluids and had poor po intake. She is more alert and responsive able to name the location of the hospital and that Navid was president in addition to alert to self. Process plan in place Patient Status: pt unable to urinate until end of shift, cleaned pt towards end of shift Diet: CCHO medium Pending Orders: n/a Pending Results/Labs: n/a Pending MD notification: n/a Latest Garcia Fall Score: 50 Fall Risk: High Risk Safety Measures: Call light , Bed Alarm Zone 1, Side Rails Side Rails x3, Bed position Low and Locked. Fall Precautions: Yellow Socks Yellow Gown Door Sign Patient Fall Education Report given to , RN. Endorsed POC.
[2020-04-02] MEDS ORDERED: Escitalopram Oxalate 5mg tab ORAL SCH (09:00)
--- NOTE | 2020-04-02 09:23 | Consultation ---
History of Present Illness General Date patient seen: Apr 02, 2020 Chief Complaint: Altered Level of Consciousness Reason for Consultation: Sepsis Present Illness HPI MS. Champagne is a 74 yo female with PMHx of CHF, HTN, DM and stroke who was recently treated for COVID 19 here. She was D/C on 03/30/20 but was not eating and was noted to have AMS. In the ED she was afebrile with positive UA and WBCs of 13. She was started on Abx and WBCs came down to 12 today. cultures are pending. She unable to give a history so history was obtained from the notes ID was consulted for AMS PMHx See above SocHx No E/T/D FamHx Unable to obtain Allergies: Coded Allergies: No Known Allergies (Unverified , 09/17/12) Medication History Scheduled Allopurinol* (Allopurinol*), 100 MG ORAL DAILY, (Reported) Allopurinol* (Allopurinol*), 200 MG ORAL DAILY Amlodipine Besylate* (Amlodipine Besylate*), 10 MG ORAL DAILY, (Reported) Ascorbic Acid* (Vitamin C*), 500 MG ORAL DAILY, (Reported) Aspirin (Aspirin), 81 MG PO DAILY, (Reported) Carvedilol (Coreg), 12.5 MG ORAL EVERY 12 HOURS, (Reported) Docusate Sodium* (Colace*), 100 MG ORAL QHS, (Reported) Escitalopram Oxalate* (Lexapro*), 5 MG ORAL DAILY, (Reported) Ferrous Sulfate* (Ferrous Sulfate*), 325 MG ORAL BID, (Reported) Furosemide* (Lasix*), 20 MG ORAL DAILY, (Reported) Gabapentin* (Gabapentin*), 300 MG ORAL THREE TIMES A DAY, (Reported) Hydralazine Hcl* (Hydralazine Hcl*), 25 MG ORAL Q8HR Hydrochlorothiazide* (Hydrochlorothiazide*), 12.5 MG ORAL DAILY, (Reported) Insulin Aspart (Novolog Flexpen), 0 UNITS SUBQ Q6HR Losartan Potassium* (Losartan Potassium*), 50 MG ORAL DAILY, (Reported) Magnesium Oxide (Magnesium), 400 MG PO DAILY, (Reported) Metformin Hcl* (Metformin Hcl*), 1,000 MG ORAL BID, (Reported) Multivitamin With Minerals (Multivitamins With Minerals*), 1 TAB ORAL DAILY, (Reported) Rosuvastatin Calcium* (Crestor*), 10 MG ORAL DAILY, (Reported) Scheduled PRN Acetaminophen* (Acetaminophen 325MG Tablet*), 650 MG ORAL Q4H PRN for For Pain, (Reported) Acetaminophen* (Acetaminophen 325MG Tablet*), 650 MG ORAL Q4H PRN for TEMP (Temp>101F), (Reported) Acetaminophen* (Acetaminophen Extra Strength*), 1,000 MG ORAL for For Pain, (Reported) Lidocaine Hcl (Lidocaine Hcl), GM TP BID PRN for BILATERAL KNEE PAIN, (Reported) Miscellaneous Medications Insulin Aspart (Novolog), UNITS SUBQ, (Reported) Patient History Healthcare decision maker N Resuscitation status Advanced Directive on File Review of Systems ROS Narrative Unable to obtain Physical Exam Last 24 Hour Vital Signs Date Time Temp Pulse Resp B/P (MAP) Pulse Ox O2 Delivery O2 Flow Rate FiO2 04/02/20 08:00 97.9 64 19 155/67 (96) 96 04/02/20 04:00 97.7 55 20 145/60 (88) 96 04/02/20 00:00 97.3 61 20 115/74 (88) 97 04/01/20 21:06 66 142/57 04/01/20 21:00 Room Air 04/01/20 20:00 96.6 66 20 142/57 (85) 96 04/01/20 17:40 Room Air 04/01/20 17:30 98.2 55 14 162/62 99 Room Air 04/01/20 16:25 180/61 04/01/20 16:23 98.2 61 18 180/61 96 Room Air 04/01/20 14:13 89 18 Room Air 04/01/20 14:11 98.2 89 18 162/74 96 Room Air 04/01/20 13:49 98.2 89 18 162/74 (103) 96 Room Air Intake and Output 04/01/20 04/02/20 19:00 07:00 Intake Total 240 ml Balance 240 ml Intake Oral 240 ml # Voids 1 # Bowel Movements 2 Laboratory Tests Test 04/01/20 14:45 04/01/20 20:33 04/02/20 04:10 04/02/20 05:56 White Blood Count 12.8 K/UL (4.8-10.8) H 11.6 K/UL (4.8-10.8) H Red Blood Count 3.88 M/UL (4.20-5.40) L 3.38 M/UL (4.20-5.40) L Hemoglobin 11.1 G/DL (12.0-16.0) L 9.6 G/DL (12.0-16.0) L Hematocrit 34.7 % (37.0-47.0) L 29.1 % (37.0-47.0) L Mean Corpuscular Volume 89 FL (80-99) 86 FL (80-99) Mean Corpuscular Hemoglobin 28.5 PG (27.0-31.0) 28.4 PG (27.0-31.0) Mean Corpuscular Hemoglobin Concent 31.9 G/DL (32.0-36.0) L 32.9 G/DL (32.0-36.0) Red Cell Distribution Width 15.5 % (11.6-14.8) H 14.7 % (11.6-14.8) Platelet Count 197 K/UL (150-450) 156 K/UL (150-450) Mean Platelet Volume 7.6 FL (6.5-10.1) 6.1 FL (6.5-10.1) L Neutrophils (%) (Auto) 68.4 % (45.0-75.0) 68.9 % (45.0-75.0) Lymphocytes (%) (Auto) 20.6 % (20.0-45.0) 16.5 % (20.0-45.0) L Monocytes (%) (Auto) 7.3 % (1.0-10.0) 9.4 % (1.0-10.0) Eosinophils (%) (Auto) 2.2 % (0.0-3.0) 2.2 % (0.0-3.0) Basophils (%) (Auto) 1.5 % (0.0-2.0) 3.0 % (0.0-2.0) H Urine Color Pale yellow Urine Appearance Slightly cloudy Urine pH 6 (4.5-8.0) Urine Specific [place] 1.015 (1.005-1.035) Urine Protein 2+ (NEGATIVE) H Urine Glucose (UA) Negative (NEGATIVE) Urine Ketones 1+ (NEGATIVE) H Urine Blood 1+ (NEGATIVE) H Urine Nitrite Negative (NEGATIVE) Urine Bilirubin Negative (NEGATIVE) Urine Urobilinogen Normal MG/DL (0.0-1.0) Urine Leukocyte Esterase 1+ (NEGATIVE) H Urine RBC 2-4 /HPF (0 - 2) H Urine WBC 20-30 /HPF (0 - 2) H Urine Squamous Epithelial Cells Moderate /LPF (NONE/OCC) H Urine Bacteria Many /HPF (NONE) H Sodium Level 144 MMOL/L (136-145) 143 MMOL/L (136-145) Potassium Level 4.0 MMOL/L (3.5-5.1) 3.3 MMOL/L (3.5-5.1) L Chloride Level 106 MMOL/L (98-107) 110 MMOL/L (98-107) H Carbon Dioxide Level 27 MMOL/L (21-32) 26 MMOL/L (21-32) Anion Gap 11 mmol/L (5-15) 7 mmol/L (5-15) Blood Urea Nitrogen 15 mg/dL (7-18) 13 mg/dL (7-18) Creatinine 0.8 MG/DL (0.55-1.30) 0.8 MG/DL (0.55-1.30) Estimat Glomerular Filtration Rate > 60 mL/min (>60) > 60 mL/min (>60) Glucose Level 184 MG/DL (74-106) H 118 MG/DL (74-106) H Lactic Acid Level 1.20 mmol/L (0.4-2.0) Calcium Level 9.1 MG/DL (8.5-10.1) 8.6 MG/DL (8.5-10.1) Total Bilirubin 0.7 MG/DL (0.2-1.0) 0.8 MG/DL (0.2-1.0) Aspartate Amino Transf (AST/SGOT) 26 U/L (15-37) 17 U/L (15-37) Alanine Aminotransferase (ALT/SGPT) 32 U/L (12-78) 25 U/L (12-78) Alkaline Phosphatase 118 U/L (46-116) H 97 U/L (46-116) Total Creatine Kinase 43 U/L (26-308) Creatine Kinase MB < 0.5 NG/ML (0.0-3.6) Creatine Kinase MB Relative Index 1.1 Troponin I 0.005 ng/mL (0.000-0.056) Total Protein 7.5 G/DL (6.4-8.2) 6.5 G/DL (6.4-8.2) Albumin 3.1 G/DL (3.4-5.0) L 2.8 G/DL (3.4-5.0) L Globulin 4.4 g/dL 3.7 g/dL Albumin/Globulin Ratio 0.7 (1.0-2.7) L 0.8 (1.0-2.7) L Lipase 80 U/L (73-393) POC Whole Blood Glucose 153 MG/DL (74-106) H 143 MG/DL (74-106) H Microbiology Date/Time Source Procedure Growth Status 04/01/20 14:45 Nasopharynx SARS-CoV-2 RdRp Gene Assay - Final Complete Height (Feet): 5 Height (Inches): 7.00 Weight (Pounds): 225 Medications Current Medications Medications (Trade) Dose Ordered Sig/Nick Route PRN Reason Start Time Stop Time Status Last Admin Dose Admin Acetaminophen (Tylenol) 650 mg Q4H PRN ORAL fever (T>100.5) 04/01/20 17:45 05/01/20 17:44 Albuterol/ Ipratropium (Albuterol/ Ipratropium) 3 ml Q4H PRN HHN Shortness of Breath 04/01/20 17:45 04/06/20 17:44 Allopurinol (Zyloprim) 100 mg DAILY ORAL 04/02/20 09:00 05/02/20 08:59 Carvedilol (Coreg) 12.5 mg EVERY 12 HOURS ORAL 04/01/20 21:00 05/01/20 20:59 04/01/20 21:06 Cefepime HCl 2 gm/ Sodium Chloride 110 ml @ 220 mls/hr EVERY 12 HOURS IV 04/01/20 21:00 04/08/20 20:59 04/01/20 21:07 Dextrose (Dextrose 50%) 25 ml Q30M PRN IV Hypoglycemia 04/01/20 17:45 06/30/20 17:44 Dextrose (Dextrose 50%) 50 ml Q30M PRN IV Hypoglycemia 04/01/20 17:45 06/30/20 17:44 Escitalopram Oxalate (Lexapro) 5 mg DAILY ORAL 04/02/20 09:00 05/02/20 08:59 Gabapentin (Neurontin) 300 mg THREE TIMES A DAY ORAL 04/01/20 18:00 05/01/20 17:59 04/01/20 18:42 Heparin Sodium (Porcine) (Heparin 5000 units/ml) 5,000 units EVERY 12 HOURS SUBQ 04/01/20 21:00 05/16/20 20:59 04/01/20 21:06 Insulin Aspart (NovoLOG) BEFORE MEALS AND HS SUBQ 04/01/20 21:00 06/30/20 20:59 04/02/20 06:01 Ondansetron HCl (Zofran) 4 mg Q6H PRN IVP Nausea & Vomiting 04/01/20 17:45 05/01/20 17:44 Polyethylene Glycol (Miralax) 17 gm DAILYPRN PRN ORAL Constipation 04/01/20 17:45 05/01/20 17:44 Sodium Chloride 1,000 ml @ 75 mls/hr [id number] IV 04/02/20 09:15 05/02/20 09:14 Temazepam (Restoril) 15 mg HSPRN PRN ORAL Insomnia 04/01/20 17:45 04/08/20 17:44 Vancomycin HCl ([facility] pharmacy to dose) 1 ea DAILY PRN MISC PER RX PROTOCOL 04/01/20 18:00 05/01/20 17:59 Vancomycin HCl 1 gm/Sodium Chloride 275 ml @ 183.299 mls/hr Q12HR@0800,2000 IVPB 04/01/20 20:00 04/06/20 19:59 04/02/20 07:48 Objective Narrative GEN: NAD, reports being cold but is not say much else as this time HEENT: NCAT, MMM, EOMI, No scleral icterus NECK Supple No LAD HEART: RRR, S1, S2 LUNGS: CTAB, No W ABD: Soft, NT, ND NEURO: A/o X0 Not following, moving ext Assessment/Plan Assessment/Plan: COVID19 Pneumonia(dx'ed 03/15) Acute hypoxic resp failure- sp NC, now on 2 Lit O2 -03/22 CXR: Cardiomegaly. Decreased and now minimal interstitial congestion -03/21 CXR: Suspect slightly increased interstitial congestion. Cardiomegaly -03/18 rapid COVID PCR + CXR: Possible early infiltrate right midlung. Low grade fever, recurrent No leukocytosis Probable UTI -u/a wbc 60-80, nit +, leuk +3; ucx >100k ESBL E.coli, 20-30k GNR Gram positive bacteremia - Likely contaminants -03/21 Bcx p -03/18 Bcx 1/4 S. warneri, 07/04 S. hominis; 03/20 Bcx 1/4 S.auricularis; 03/21 Bcx NTD CHF obesity HTN Dm2 CVA Plan: - Continue Cefepime #2 and Vancomycin #2 - f/u Cultures - 03/28/20 SP Decadron #10/10 - 03/27/20 SP Meropenem #7/7 for ESBL UTI - 03/25/20 SP IV Vancomcyin #9 - 03/24/20 SP Remdesivir #5/5 -03/22 SP Azithromycin #6 -03/20 SP Cefepime #4 -03/18 SP Ceftriaxone x1 -f/u cx -Monitor CBC/CMP, temperatures -COVID19 isolation Thank you for this consult. [facility] will continue to follow. Mio Oviedo MD Apr 02, 2020 09:23
[2020-04-02] MEDS: Carvedilol 12.5mg tab ORAL SCH ×2 (09:30→22:10)
[2020-04-02] MEDS: Allopurinol 100mg Tab ORAL SCH (09:30)
[2020-04-02] MEDS: Heparin 5000 units/ml inj SUBQ SCH ×2 (09:32→20:28)
[2020-04-02] MEDS: Cefepime HCl 2 GM in NS 110 ML IV SCH ×2 (09:32→22:10)
[2020-04-02 10:24] LABS: APPEARANCE,URINE CLEAR; COLOR,URINE YELLOW; GLUCOSE, URINE (UA) NEGATIVE (NEGATIVE); KETONES,URINE NEGATIVE (NEGATIVE); PROTEIN,URINE 2+ (NEGATIVE)
[2020-04-02 10:25] LABS: BILIRUBIN, URINE NEGATIVE (NEGATIVE); LEUKOCYTE ESTERASE ,URINE 2+ (NEGATIVE); NITRITE,URINE NEGATIVE (NEGATIVE); UROBILINOGEN,URINE NORMAL MG/DL (0.0-1.0)
--- NOTE | 2020-04-02 10:45 | NUR ---
NURSE NOTES: Paged Dr. French re decreased K level per lab result. Awaiting response. Will continue to f/u. RN provided update re patient's conditions to steph Dumont [phone]. Julia was appreciative of update given.
[2020-04-02 12:00] VITALS: BP 147/86
[2020-04-02] MEDS: NS w/KCl 20mEq 1000ml 1,000 ML IV SCH (12:25)
--- NOTE | 2020-04-02 12:52 | Internal Med Progress Note ---
Subjective Date of Service: Apr 02, 2020 Physician Name Bk Kellogg Attending Physician Papa French MD Current Medications Medications (Trade) Dose Ordered Sig/Nick Route PRN Reason Start Time Stop Time Status Last Admin Dose Admin Acetaminophen (Tylenol) 650 mg Q4H PRN ORAL fever (T>100.5) 04/01/20 17:45 05/01/20 17:44 Albuterol/ Ipratropium (Albuterol/ Ipratropium) 3 ml Q4H PRN HHN Shortness of Breath 04/01/20 17:45 04/06/20 17:44 Allopurinol (Zyloprim) 100 mg DAILY ORAL 04/02/20 09:00 05/02/20 08:59 04/02/20 09:30 Carvedilol (Coreg) 12.5 mg EVERY 12 HOURS ORAL 04/01/20 21:00 05/01/20 20:59 04/02/20 09:30 Cefepime HCl 2 gm/ Sodium Chloride 110 ml @ 220 mls/hr EVERY 12 HOURS IV 04/01/20 21:00 04/08/20 20:59 04/02/20 09:32 Clonidine HCl (Catapres Tab) 0.1 mg Q6H PRN ORAL For High Blood Pressure 04/02/20 11:15 07/01/20 11:14 Dextrose (Dextrose 50%) 25 ml Q30M PRN IV Hypoglycemia 04/01/20 17:45 06/30/20 17:44 Dextrose (Dextrose 50%) 50 ml Q30M PRN IV Hypoglycemia 04/01/20 17:45 06/30/20 17:44 Escitalopram Oxalate (Lexapro) 5 mg DAILY ORAL 04/02/20 09:00 05/02/20 08:59 04/02/20 09:30 Gabapentin (Neurontin) 300 mg THREE TIMES A DAY ORAL 04/01/20 18:00 05/01/20 17:59 04/02/20 12:26 Heparin Sodium (Porcine) (Heparin 5000 units/ml) 5,000 units EVERY 12 HOURS SUBQ 04/01/20 21:00 05/16/20 20:59 04/02/20 09:32 Insulin Aspart (NovoLOG) BEFORE MEALS AND HS SUBQ 04/01/20 21:00 06/30/20 20:59 04/02/20 12:40 Ondansetron HCl (Zofran) 4 mg Q6H PRN IVP Nausea & Vomiting 04/01/20 17:45 05/01/20 17:44 Polyethylene Glycol (Miralax) 17 gm DAILYPRN PRN ORAL Constipation 04/01/20 17:45 05/01/20 17:44 Potassium Chloride/Sodium Chloride 1,000 ml @ 75 mls/hr [id number] IV 04/02/20 12:00 05/02/20 11:59 04/02/20 12:25 Temazepam (Restoril) 15 mg HSPRN PRN ORAL Insomnia 04/01/20 17:45 04/08/20 17:44 Vancomycin HCl (Vanco pharmacy to dose) 1 ea DAILY PRN MISC PER RX PROTOCOL 04/01/20 18:00 05/01/20 17:59 Vancomycin HCl 1 gm/Sodium Chloride 275 ml @ 183.299 mls/hr Q12HR@0800,2000 IVPB 04/01/20 20:00 04/06/20 19:59 04/02/20 07:48 Allergies: Coded Allergies: No Known Allergies (Unverified , 09/17/12) ROS Limited/Unobtainable: Yes Subjective 74 YO F with history of COVID 19 pneumonia in Mar 2020, admitted with altered mental status. Now UTI and possible sepsis. Cover for Int Med-Dr French Objective Last Vital Signs Date Time Temp Pulse Resp B/P (MAP) Pulse Ox O2 Delivery O2 Flow Rate FiO2 04/02/20 12:00 98.4 60 18 147/86 (106) 96 04/02/20 09:00 Room Air Laboratory Tests Test 04/01/20 14:45 04/01/20 20:33 04/02/20 04:10 04/02/20 05:56 White Blood Count 12.8 K/UL (4.8-10.8) H 11.6 K/UL (4.8-10.8) H Red Blood Count 3.88 M/UL (4.20-5.40) L 3.38 M/UL (4.20-5.40) L Hemoglobin 11.1 G/DL (12.0-16.0) L 9.6 G/DL (12.0-16.0) L Hematocrit 34.7 % (37.0-47.0) L 29.1 % (37.0-47.0) L Mean Corpuscular Volume 89 FL (80-99) 86 FL (80-99) Mean Corpuscular Hemoglobin 28.5 PG (27.0-31.0) 28.4 PG (27.0-31.0) Mean Corpuscular Hemoglobin Concent 31.9 G/DL (32.0-36.0) L 32.9 G/DL (32.0-36.0) Red Cell Distribution Width 15.5 % (11.6-14.8) H 14.7 % (11.6-14.8) Platelet Count 197 K/UL (150-450) 156 K/UL (150-450) Mean Platelet Volume 7.6 FL (6.5-10.1) 6.1 FL (6.5-10.1) L Neutrophils (%) (Auto) 68.4 % (45.0-75.0) 68.9 % (45.0-75.0) Lymphocytes (%) (Auto) 20.6 % (20.0-45.0) 16.5 % (20.0-45.0) L Monocytes (%) (Auto) 7.3 % (1.0-10.0) 9.4 % (1.0-10.0) Eosinophils (%) (Auto) 2.2 % (0.0-3.0) 2.2 % (0.0-3.0) Basophils (%) (Auto) 1.5 % (0.0-2.0) 3.0 % (0.0-2.0) H Urine Color Pale yellow Urine Appearance Slightly cloudy Urine pH 6 (4.5-8.0) Urine Specific [place] 1.015 (1.005-1.035) Urine Protein 2+ (NEGATIVE) H Urine Glucose (UA) Negative (NEGATIVE) Urine Ketones 1+ (NEGATIVE) H Urine Blood 1+ (NEGATIVE) H Urine Nitrite Negative (NEGATIVE) Urine Bilirubin Negative (NEGATIVE) Urine Urobilinogen Normal MG/DL (0.0-1.0) Urine Leukocyte Esterase 1+ (NEGATIVE) H Urine RBC 2-4 /HPF (0 - 2) H Urine WBC 20-30 /HPF (0 - 2) H Urine Squamous Epithelial Cells Moderate /LPF (NONE/OCC) H Urine Bacteria Many /HPF (NONE) H Sodium Level 144 MMOL/L (136-145) 143 MMOL/L (136-145) Potassium Level 4.0 MMOL/L (3.5-5.1) 3.3 MMOL/L (3.5-5.1) L Chloride Level 106 MMOL/L (98-107) 110 MMOL/L (98-107) H Carbon Dioxide Level 27 MMOL/L (21-32) 26 MMOL/L (21-32) Anion Gap 11 mmol/L (5-15) 7 mmol/L (5-15) Blood Urea Nitrogen 15 mg/dL (7-18) 13 mg/dL (7-18) Creatinine 0.8 MG/DL (0.55-1.30) 0.8 MG/DL (0.55-1.30) Estimat Glomerular Filtration Rate > 60 mL/min (>60) > 60 mL/min (>60) Glucose Level 184 MG/DL (74-106) H 118 MG/DL (74-106) H Lactic Acid Level 1.20 mmol/L (0.4-2.0) Calcium Level 9.1 MG/DL (8.5-10.1) 8.6 MG/DL (8.5-10.1) Total Bilirubin 0.7 MG/DL (0.2-1.0) 0.8 MG/DL (0.2-1.0) Aspartate Amino Transf (AST/SGOT) 26 U/L (15-37) 17 U/L (15-37) Alanine Aminotransferase (ALT/SGPT) 32 U/L (12-78) 25 U/L (12-78) Alkaline Phosphatase 118 U/L (46-116) H 97 U/L (46-116) Total Creatine Kinase 43 U/L (26-308) Creatine Kinase MB < 0.5 NG/ML (0.0-3.6) Creatine Kinase MB Relative Index 1.1 Troponin I 0.005 ng/mL (0.000-0.056) Total Protein 7.5 G/DL (6.4-8.2) 6.5 G/DL (6.4-8.2) Albumin 3.1 G/DL (3.4-5.0) L 2.8 G/DL (3.4-5.0) L Globulin 4.4 g/dL 3.7 g/dL Albumin/Globulin Ratio 0.7 (1.0-2.7) L 0.8 (1.0-2.7) L Lipase 80 U/L (73-393) POC Whole Blood Glucose 153 MG/DL (74-106) H 143 MG/DL (74-106) H Test 04/02/20 09:50 04/02/20 12:36 Urine Color Yellow Urine Appearance Clear Urine pH 7.0 (4.5-8.0) Urine Specific [place] 1.005 (1.005-1.035) Urine Protein 2+ (NEGATIVE) H Urine Glucose (UA) Negative (NEGATIVE) Urine Ketones Negative (NEGATIVE) Urine Blood 2+ (NEGATIVE) H Urine Nitrite Negative (NEGATIVE) Urine Bilirubin Negative (NEGATIVE) Urine Urobilinogen Normal MG/DL (0.0-1.0) Urine Leukocyte Esterase 2+ (NEGATIVE) H Urine RBC 2-4 /HPF (0 - 2) H Urine WBC 10-15 /HPF (0 - 2) H Urine Squamous Epithelial Cells Few /LPF (NONE/OCC) Urine Bacteria Occasional /HPF (NONE) POC Whole Blood Glucose 171 MG/DL (74-106) H Microbiology Date/Time Source Procedure Growth Status 04/01/20 14:45 Nasopharynx SARS-CoV-2 RdRp Gene Assay - Final Complete Intake and Output 04/01/20 04/02/20 19:00 07:00 Intake Total 240 ml Balance 240 ml Intake Oral 240 ml # Voids 1 # Bowel Movements 2 Objective PHYSICAL EXAMINATION: GENERAL: The patient is altered, less responsive, however, opens her eyes. HEAD AND NECK: Pupils are equal and reactive to light. Extraocular muscles intact. Neck was supple. No JVD. LUNGS: Good air entry. Decreased air in bases. No wheeze or rhonchi. HEART: S1, S2. Distant heart sounds. No murmurs or gallops. ABDOMEN: Soft, nondistended, and nontender. Mildly obese. EXTREMITIES: No cyanosis, clubbing, or edema. NEUROLOGIC: Limited secondary to the patient's status; however, the patient is moving all the extremities spontaneously. Cranial nerves II through XII grossly intact. RECTAL: Refused and deferred. GENITOURINARY: Refused and deferred. Assessment/Plan Assessment/Plan ASSESSMENT: 1. Altered mental status, most likely secondary to toxic metabolic encephalopathy as a result of infection. 2. Recurrent urinary tract infection. 3. COVID-19 positive. 4. Prior history of acute hypoxemic respiratory failure due to COVID-19 infection. 5. Prior history of E. coli ESBL as well as Klebsiella urinary tract infection. 6. Hypertension. 7. Diabetes type 2. 8. Chronic congestive heart failure. 9. Cardiomyopathy. 10. History of breast cancer. 11. Gout. 12. Prior history of CVA. 13. Morbid obesity. 14. Major depressive disorder. 15. urinary tract infection PLAN: 1. Admit the patient to medical floor. 2. antibiotic = cefepime and vancomycin. 3. Code status = Full Code. 4. DVT prophylaxis=heparin subcutaneous. 5. Dr. Lux=Pulmonary Critical Care 6. Dr. Oviedo = Infectious Disease. Bk Kellogg MD Apr 02, 2020 12:52
--- NOTE | 2020-04-02 15:21 | Consultation ---
History of Present Illness General Date patient seen: Apr 02, 2020 Chief Complaint: Altered Level of Consciousness Reason for Consultation: Sepsis Present Illness HPI 74-year-old female wit history of heart failure, obesity, hypertension, diabetes, treated recently at [facility] for COVID-19 and was discharged on Mar 30 to [facility], is sent back to ER for ALOC. The patient is a poor historian does not seem to know much about her medical history. She is admitted for further evaluation. Allergies: Coded Allergies: No Known Allergies (Unverified , 09/17/12) Medication History Scheduled Allopurinol* (Allopurinol*), 100 MG ORAL DAILY, (Reported) Allopurinol* (Allopurinol*), 200 MG ORAL DAILY Amlodipine Besylate* (Amlodipine Besylate*), 10 MG ORAL DAILY, (Reported) Ascorbic Acid* (Vitamin C*), 500 MG ORAL DAILY, (Reported) Aspirin (Aspirin), 81 MG PO DAILY, (Reported) Carvedilol (Coreg), 12.5 MG ORAL EVERY 12 HOURS, (Reported) Docusate Sodium* (Colace*), 100 MG ORAL QHS, (Reported) Escitalopram Oxalate* (Lexapro*), 5 MG ORAL DAILY, (Reported) Ferrous Sulfate* (Ferrous Sulfate*), 325 MG ORAL BID, (Reported) Furosemide* (Lasix*), 20 MG ORAL DAILY, (Reported) Gabapentin* (Gabapentin*), 300 MG ORAL THREE TIMES A DAY, (Reported) Hydralazine Hcl* (Hydralazine Hcl*), 25 MG ORAL Q8HR Hydrochlorothiazide* (Hydrochlorothiazide*), 12.5 MG ORAL DAILY, (Reported) Insulin Aspart (Novolog Flexpen), 0 UNITS SUBQ Q6HR Losartan Potassium* (Losartan Potassium*), 50 MG ORAL DAILY, (Reported) Magnesium Oxide (Magnesium), 400 MG PO DAILY, (Reported) Metformin Hcl* (Metformin Hcl*), 1,000 MG ORAL BID, (Reported) Multivitamin With Minerals (Multivitamins With Minerals*), 1 TAB ORAL DAILY, (Reported) Rosuvastatin Calcium* (Crestor*), 10 MG ORAL DAILY, (Reported) Scheduled PRN Acetaminophen* (Acetaminophen 325MG Tablet*), 650 MG ORAL Q4H PRN for For Pain, (Reported) Acetaminophen* (Acetaminophen 325MG Tablet*), 650 MG ORAL Q4H PRN for TEMP (Temp>101F), (Reported) Acetaminophen* (Acetaminophen Extra Strength*), 1,000 MG ORAL for For Pain, (Reported) Lidocaine Hcl (Lidocaine Hcl), GM TP BID PRN for BILATERAL KNEE PAIN, (Reported) Miscellaneous Medications Insulin Aspart (Novolog), UNITS SUBQ, (Reported) Patient History Healthcare decision maker N Resuscitation status Advanced Directive on File Past Medical/Surgical History Past Medical/Surgical History: (1) Hypertension (2) 2019 novel coronavirus disease (COVID-19) (3) Gout (4) Major depression, recurrent (5) Anxiety disorder (6) HX: breast cancer (7) Diabetes mellitus Review of Systems All Other Systems: negative except mentioned in HPI Physical Exam General Appearance: WD/WN, overweight Lines, tubes and drains: peripheral HEENT: normocephalic, atraumatic Neck: non-tender, supple Respiratory/Chest: chest wall non-tender, lungs clear Breasts: no masses Cardiovascular/Chest: normal rate Abdomen: normal bowel sounds, non tender Genitourinary/Rectal: normal genital exam Last 24 Hour Vital Signs Date Time Temp Pulse Resp B/P (MAP) Pulse Ox O2 Delivery O2 Flow Rate FiO2 04/02/20 12:00 98.4 60 18 147/86 (106) 96 04/02/20 09:30 64 155/67 04/02/20 09:00 Room Air 04/02/20 08:00 97.9 64 19 155/67 (96) 96 04/02/20 04:00 97.7 55 20 145/60 (88) 96 04/02/20 00:00 97.3 61 20 115/74 (88) 97 04/01/20 21:06 66 142/57 04/01/20 21:00 Room Air 04/01/20 20:00 96.6 66 20 142/57 (85) 96 04/01/20 17:40 Room Air 04/01/20 17:30 98.2 55 14 162/62 99 Room Air 04/01/20 16:25 180/61 04/01/20 16:23 98.2 61 18 180/61 96 Room Air Intake and Output 04/01/20 04/02/20 19:00 07:00 Intake Total 240 ml Balance 240 ml Intake Oral 240 ml # Voids 1 # Bowel Movements 2 Laboratory Tests Test 04/01/20 20:33 04/02/20 04:10 04/02/20 05:56 04/02/20 09:50 POC Whole Blood Glucose 153 MG/DL (74-106) H 143 MG/DL (74-106) H White Blood Count 11.6 K/UL (4.8-10.8) H Red Blood Count 3.38 M/UL (4.20-5.40) L Hemoglobin 9.6 G/DL (12.0-16.0) L Hematocrit 29.1 % (37.0-47.0) L Mean Corpuscular Volume 86 FL (80-99) Mean Corpuscular Hemoglobin 28.4 PG (27.0-31.0) Mean Corpuscular Hemoglobin Concent 32.9 G/DL (32.0-36.0) Red Cell Distribution Width 14.7 % (11.6-14.8) Platelet Count 156 K/UL (150-450) Mean Platelet Volume 6.1 FL (6.5-10.1) L Neutrophils (%) (Auto) 68.9 % (45.0-75.0) Lymphocytes (%) (Auto) 16.5 % (20.0-45.0) L Monocytes (%) (Auto) 9.4 % (1.0-10.0) Eosinophils (%) (Auto) 2.2 % (0.0-3.0) Basophils (%) (Auto) 3.0 % (0.0-2.0) H Sodium Level 143 MMOL/L (136-145) Potassium Level 3.3 MMOL/L (3.5-5.1) L Chloride Level 110 MMOL/L (98-107) H Carbon Dioxide Level 26 MMOL/L (21-32) Anion Gap 7 mmol/L (5-15) Blood Urea Nitrogen 13 mg/dL (7-18) Creatinine 0.8 MG/DL (0.55-1.30) Estimat Glomerular Filtration Rate > 60 mL/min (>60) Glucose Level 118 MG/DL (74-106) H Calcium Level 8.6 MG/DL (8.5-10.1) Total Bilirubin 0.8 MG/DL (0.2-1.0) Aspartate Amino Transf (AST/SGOT) 17 U/L (15-37) Alanine Aminotransferase (ALT/SGPT) 25 U/L (12-78) Alkaline Phosphatase 97 U/L (46-116) Total Protein 6.5 G/DL (6.4-8.2) Albumin 2.8 G/DL (3.4-5.0) L Globulin 3.7 g/dL Albumin/Globulin Ratio 0.8 (1.0-2.7) L Urine Color Yellow Urine Appearance Clear Urine pH 7.0 (4.5-8.0) Urine Specific [place] 1.005 (1.005-1.035) Urine Protein 2+ (NEGATIVE) H Urine Glucose (UA) Negative (NEGATIVE) Urine Ketones Negative (NEGATIVE) Urine Blood 2+ (NEGATIVE) H Urine Nitrite Negative (NEGATIVE) Urine Bilirubin Negative (NEGATIVE) Urine Urobilinogen Normal MG/DL (0.0-1.0) Urine Leukocyte Esterase 2+ (NEGATIVE) H Urine RBC 2-4 /HPF (0 - 2) H Urine WBC 10-15 /HPF (0 - 2) H Urine Squamous Epithelial Cells Few /LPF (NONE/OCC) Urine Bacteria Occasional /HPF (NONE) Test 04/02/20 12:36 POC Whole Blood Glucose 171 MG/DL (74-106) H Height (Feet): 5 Height (Inches): 7.00 Weight (Pounds): 225 Medications Current Medications Medications (Trade) Dose Ordered Sig/Nick Route PRN Reason Start Time Stop Time Status Last Admin Dose Admin Acetaminophen (Tylenol) 650 mg Q4H PRN ORAL fever (T>100.5) 04/01/20 17:45 05/01/20 17:44 Albuterol/ Ipratropium (Albuterol/ Ipratropium) 3 ml Q4H PRN HHN Shortness of Breath 04/01/20 17:45 04/06/20 17:44 Allopurinol (Zyloprim) 100 mg DAILY ORAL 04/02/20 09:00 05/02/20 08:59 04/02/20 09:30 Carvedilol (Coreg) 12.5 mg EVERY 12 HOURS ORAL 04/01/20 21:00 05/01/20 20:59 04/02/20 09:30 Cefepime HCl 2 gm/ Sodium Chloride 110 ml @ 220 mls/hr EVERY 12 HOURS IV 04/01/20 21:00 10/9/20 20:59 04/02/20 09:32 Clonidine HCl (Catapres Tab) 0.1 mg Q6H PRN ORAL For High Blood Pressure 04/02/20 11:15 07/01/20 11:14 Dextrose (Dextrose 50%) 25 ml Q30M PRN IV Hypoglycemia 04/01/20 17:45 06/30/20 17:44 Dextrose (Dextrose 50%) 50 ml Q30M PRN IV Hypoglycemia 04/01/20 17:45 06/30/20 17:44 Escitalopram Oxalate (Lexapro) 5 mg DAILY ORAL 04/02/20 09:00 05/02/20 08:59 04/02/20 09:30 Gabapentin (Neurontin) 300 mg THREE TIMES A DAY ORAL 04/01/20 18:00 05/01/20 17:59 04/02/20 12:26 Heparin Sodium (Porcine) (Heparin 5000 units/ml) 5,000 units EVERY 12 HOURS SUBQ 04/01/20 21:00 05/16/20 20:59 04/02/20 09:32 Insulin Aspart (NovoLOG) BEFORE MEALS AND HS SUBQ 04/01/20 21:00 06/30/20 20:59 04/02/20 12:40 Ondansetron HCl (Zofran) 4 mg Q6H PRN IVP Nausea & Vomiting 04/01/20 17:45 05/01/20 17:44 Polyethylene Glycol (Miralax) 17 gm DAILYPRN PRN ORAL Constipation 04/01/20 17:45 05/01/20 17:44 Potassium Chloride/Sodium Chloride 1,000 ml @ 75 mls/hr [id number] IV 04/02/20 12:00 05/02/20 11:59 04/02/20 12:25 Temazepam (Restoril) 15 mg HSPRN PRN ORAL Insomnia 04/01/20 17:45 04/08/20 17:44 Vancomycin HCl (Vanco pharmacy to dose) 1 ea DAILY PRN MISC PER RX PROTOCOL 04/01/20 18:00 05/01/20 17:59 Vancomycin HCl 1 gm/Sodium Chloride 275 ml @ 183.299 mls/hr Q12HR@0800,2000 IVPB 04/01/20 20:00 04/06/20 19:59 04/02/20 07:48 Assessment/Plan Problem List: (1) Altered level of consciousness ICD Codes: R40.4 - Transient alteration of awareness SNOMED: 0901137 (2) UTI (urinary tract infection) ICD Codes: N39.0 - Urinary tract infection, site not specified SNOMED: 68069515 (3) 2019 novel coronavirus disease (COVID-19) ICD Codes: U07.1 - COVID-19 SNOMED: 003954443 (4) Diabetes mellitus ICD Codes: E11.9 - Type 2 diabetes mellitus without complications SNOMED: 45335446 (5) History of hypertension ICD Codes: Z86.79 - Personal history of other diseases of the circulatory system SNOMED: 147921892 Assessment/Plan: hi culture iv abx iv fluids aspiration precaution ID evaluation Neuro evaluation dvt prophylaxis siding scale Calli Lux MD Apr 02, 2020 15:21
[2020-04-02 16:00] VITALS: BP 147/65
[2020-04-02] MEDS ORDERED: PERIDEX15 ML MM (18:15)
[2020-04-02] MEDS ORDERED: ZINC SULFATE220 M1 ORAL (18:15)
[2020-04-02] MEDS ORDERED: DOCUSATE SODIU100 M2 ORAL (18:15)
--- NOTE | 2020-04-02 18:58 | NUR ---
NURSE HAND-OFF: Important Events on Shift: no acute events during shift, patient on IVF, fair appetite, speaks more words today than yesterday, urinated large amount of urine in AM, Make It Workck still working well, stable on RA, repositioned [id number], BS WNL last result with no coverage Patient Status: stable Diet: CCHO medium Pending Orders: n/a Pending Results/Labs: Vanco trough in AM, CBC, CMP, Mg, Phos Pending MD notification: n/a Latest Vital Signs: Temperature 98.1 , Pulse 57 , B/P 147 /65 , Respiratory Rate 18 , O2 SAT 93 , Room Air, O2 Flow Rate . Vital Sign Comment: stable Latest Garcia Fall Score: 50 Fall Risk: High Risk Safety Measures: Call light Within Reach, Bed Alarm Zone 1, Side Rails Side Rails x3, Bed position Low and Locked. Fall Precautions: Yellow Socks Yellow Gown Door Sign Patient Fall Education . Addendum: 04/02/20 at 1935 by Robin Schneider RN HAND-OFF: Report given to PRITESH Holm. Endorsed POC.
--- NOTE | 2020-04-02 19:21 | NUR ---
NURSE NOTES: The patient is alert and oriented x3 and does seem to be in distress at this time.The Resp is even and unlabored .The patient has a pIV 18 G to R hand that is patent an asymptomatic. Fall precautions reinforced. Bed in lowest position, locked, with alarm on. Call light within reach. Will continue to monitor as indicated.
[2020-04-02 20:00] VITALS: BP 138/71
[2020-04-03] VITALS: BP 142/74
[2020-04-03] MEDS: NS w/KCl 20mEq 1000ml 1,000 ML IV SCH (01:22)
[2020-04-03 04:00] VITALS: BP 138/78
--- NOTE | 2020-04-03 05:16 | NUR ---
NURSE NOTES: The patient is cooperative with her care, was help with turning and re-positioning q2 hrs PRN as indicated. She was help with turning and re-positioning and doesn't seem to be in any distress at this time. Will continue to monitor
[2020-04-03] MEDS: NovoLOG Insulin Flexpen SUBQ SCH ×4 (06:11→21:00)
--- NOTE | 2020-04-03 07:21 | NUR ---
HAND-OFF: Report given to Marleny JONAS.
--- NOTE | 2020-04-03 07:58 | NUR ---
NURSE NOTES: Patient awake and alert to name ,patient knows that she is in the hospital,but unable to tell me the name of the hospital.Reorient patient to date month and year. respirations unlabored.IV fluids infusing as ordered.patient has puriwick and noted clear yellow urine .patient sitting up in bed and eating breakfast.Bed alarm is on,call light within reach.
[2020-04-03 08:00] VITALS: BP_SYST 155; BP_SYST 168; BP_DIAS 64; BP_DIAS 68
[2020-04-03 08:05] LABS: BASOPHILS % (AUTO) 3.4 % (0.0-2.0); EOSINOPHILS % (AUTO) 3.4 % (0.0-3.0); HEMATOCRIT 28.8 % (37.0-47.0); HEMOGLOBIN 9.5 G/DL (12.0-16.0); LYMPHOCYTES % (AUTO) 21.4 % (20.0-45.0); MEAN CORPUSCULAR VOLUME 86 FL (80-99); MONOCYTES % (AUTO) 8.4 % (1.0-10.0); NEUTROPHILS % (AUTO) 63.4 % (45.0-75.0); PLATELET COUNT 182 K/UL (150-450); RED BLOOD COUNT 3.35 M/UL (4.20-5.40); RED CELL DISTRIBUTION WIDTH 14.1 % (11.6-14.8); WHITE BLOOD COUNT 9.6 K/UL (4.8-10.8)
[2020-04-03 08:32] LABS: ANION GAP 7 mmol/L (5-15); BLOOD UREA NITROGEN 13 mg/dL (7-18); CALCIUM 8.4 MG/DL (8.5-10.1); CARBON DIOXIDE 24 MMOL/L (21-32); CHLORIDE 109 MMOL/L (98-107); CREATININE 0.9 MG/DL (0.55-1.30); POTASSIUM 3.8 MMOL/L (3.5-5.1); SODIUM 140 MMOL/L (136-145)
[2020-04-03 08:53] LABS: PHOSPHORUS 2.6 MG/DL (2.5-4.9)
[2020-04-03] MEDS: Carvedilol 12.5mg tab ORAL SCH ×2 (09:00→21:43)
[2020-04-03] MEDS: Allopurinol 100mg Tab ORAL SCH (09:00)
[2020-04-03] MEDS: Heparin 5000 units/ml inj SUBQ SCH ×2 (09:39→21:43)
[2020-04-03] MEDS: Cefepime HCl 2 GM in NS 110 ML IV SCH ×2 (09:43→21:00)
--- NOTE | 2020-04-03 09:56 | NUR ---
NURSE NOTES: Patient will not take medication,she keeps her mouth closed,responds to touch and painful stimuli when getting the heparin injection but nonverbal at this time.BP 167/77,heart rate 60 , o2 saturation 95% on room air.Will notify Doctor regarding status.
[2020-04-03] MEDS: Vancomycin 1 GM in NS 275 ML IVPB SCH ×2 (11:00→20:00)
--- NOTE | 2020-04-03 11:30 | NUR ---
CHARGE NURSE NOTE: and notified regarding the change in patient condition (she is nonverbal, was talking before). Messages left . Awaiting response back.
[2020-04-03 12:00] VITALS: BP 170/70
--- NOTE | 2020-04-03 13:10 | Pulmonology Progress Note ---
Subjective ROS Limited/Unobtainable: Yes Allergies: Coded Allergies: No Known Allergies (Unverified , 09/17/12) Objective Last 24 Hour Vital Signs Date Time Temp Pulse Resp B/P (MAP) Pulse Ox O2 Delivery O2 Flow Rate FiO2 04/03/20 12:08 170/70 04/03/20 12:00 98.0 53 18 170/70 (103) 95 04/03/20 09:00 60 167/77 04/03/20 09:00 Room Air 04/03/20 08:00 98.0 87 19 168/68 (101) 97 04/03/20 04:00 97.6 72 17 138/78 (98) 95 04/03/20 00:00 98.4 64 19 142/74 (96) 96 04/02/20 22:10 57 138/71 04/02/20 21:00 Room Air 04/02/20 20:00 98.0 57 18 138/71 (93) 96 04/02/20 16:00 98.1 57 18 147/65 (92) 93 Intake and Output 04/02/20 04/03/20 19:00 07:00 Intake Total 1485.000 ml 1120 ml Output Total 1200 ml Balance 1485.000 ml -80 ml Intake Oral 220 ml IV Total 685.000 ml 900 ml Other 800 ml Output Urine Total 1200 ml General Appearance: WD/WN HEENT: normocephalic, atraumatic Respiratory: chest wall non-tender, lungs clear Cardiovascular: normal peripheral pulses, normal rate Abdomen: normal bowel sounds, soft, non tender Genitourinary: normal external genitalia Extremities: no cyanosis Skin: no rash 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: 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 grossly normal Microbiology Date/Time Source Procedure Growth Status 04/01/20 14:45 Nasopharynx SARS-CoV-2 RdRp Gene Assay - Final Complete Laboratory Tests 04/02/20 22:13: POC Whole Blood Glucose 142H 04/03/20 07:30: White Blood Count 9.6, Red Blood Count 3.35L, Hemoglobin 9.5L, Hematocrit 28.8L, Mean Corpuscular Volume 86, Mean Corpuscular Hemoglobin 28.4, Mean Corpuscular Hemoglobin Concent 33.0, Red Cell Distribution Width 14.1, Platelet Count 182, Mean Platelet Volume 7.3, Neutrophils (%) (Auto) 63.4, Lymphocytes (%) (Auto) 21.4, Monocytes (%) (Auto) 8.4, Eosinophils (%) (Auto) 3.4H, Basophils (%) (Auto) 3.4H, Sodium Level 140, Potassium Level 3.8, Chloride Level 109H, Carbon Dioxide Level 24, Anion Gap 7, Blood Urea Nitrogen 13, Creatinine 0.9, Estimat Glomerular Filtration Rate > 60, Glucose Level 158H, Calcium Level 8.4L, Phosphorus Level 2.6, Magnesium Level 1.9, Vancomycin Level Trough 16.0H 04/03/20 12:06: POC Whole Blood Glucose 154H Current Medications Medications (Trade) Dose Ordered Sig/Nick Route PRN Reason Start Time Stop Time Status Last Admin Dose Admin Acetaminophen (Tylenol) 650 mg Q4H PRN ORAL fever (T>100.5) 04/01/20 17:45 05/01/20 17:44 Albuterol/ Ipratropium (Albuterol/ Ipratropium) 3 ml Q4H PRN HHN Shortness of Breath 04/01/20 17:45 04/06/20 17:44 Allopurinol (Zyloprim) 100 mg DAILY ORAL 04/02/20 09:00 05/02/20 08:59 04/02/20 09:30 Carvedilol (Coreg) 12.5 mg EVERY 12 HOURS ORAL 04/01/20 21:00 05/01/20 20:59 04/02/20 22:10 Cefepime HCl 2 gm/ Sodium Chloride 110 ml @ 220 mls/hr EVERY 12 HOURS IV 04/01/20 21:00 04/08/20 20:59 04/03/20 09:43 Clonidine HCl (Catapres TTS-1) 1 patch QWEEK TDERMAL 04/03/20 12:00 07/02/20 11:59 04/03/20 12:08 Clonidine HCl (Catapres Tab) 0.1 mg Q6H PRN ORAL For High Blood Pressure 04/02/20 11:15 07/01/20 11:14 Dextrose (Dextrose 50%) 25 ml Q30M PRN IV Hypoglycemia 04/01/20 17:45 06/30/20 17:44 Dextrose (Dextrose 50%) 50 ml Q30M PRN IV Hypoglycemia 04/01/20 17:45 06/30/20 17:44 Escitalopram Oxalate (Lexapro) 5 mg DAILY ORAL 04/02/20 09:00 05/02/20 08:59 04/02/20 09:30 Gabapentin (Neurontin) 300 mg THREE TIMES A DAY ORAL 04/01/20 18:00 05/01/20 17:59 04/02/20 18:18 Heparin Sodium (Porcine) (Heparin 5000 units/ml) 5,000 units EVERY 12 HOURS SUBQ 04/01/20 21:00 05/16/20 20:59 04/03/20 09:39 Insulin Aspart (NovoLOG) BEFORE MEALS AND HS SUBQ 04/01/20 21:00 06/30/20 20:59 04/03/20 06:11 Ondansetron HCl (Zofran) 4 mg Q6H PRN IVP Nausea & Vomiting 04/01/20 17:45 05/01/20 17:44 Polyethylene Glycol (Miralax) 17 gm DAILYPRN PRN ORAL Constipation 04/01/20 17:45 05/01/20 17:44 Sodium Chloride 1,000 ml @ 50 mls/hr Q20H IV 04/03/20 12:30 05/03/20 12:29 Temazepam (Restoril) 15 mg HSPRN PRN ORAL Insomnia 04/01/20 17:45 04/08/20 17:44 Vancomycin HCl (Vanco pharmacy to dose) 1 ea DAILY PRN MISC PER RX PROTOCOL 04/01/20 18:00 05/01/20 17:59 Vancomycin HCl 1 gm/Sodium Chloride 275 ml @ 183.299 mls/hr Q12HR@0800,2000 IVPB 04/01/20 20:00 04/06/20 19:59 04/03/20 11:00 Assessment/Plan Problems: (1) Altered level of consciousness (2) UTI (urinary tract infection) (3) 2019 novel coronavirus disease (COVID-19) (4) Diabetes mellitus (5) History of hypertension Assessment/Plan less responsive CT of head, keep npo hi culture iv abx iv fluids aspiration precaution ID evaluation Neuro evaluation dvt prophylaxis siding scale Calil Lux MD Apr 03, 2020 13:10
--- NOTE | 2020-04-03 13:39 | Diagnostic Imaging Report ---
EXAM: CT Head Without Intravenous Contrast CLINICAL HISTORY: ALOC TECHNIQUE: Axial computed tomography images of the head/brain without intravenous contrast. CTDI is 53.4 mGy and DLP is 1152.4 mGy-cm. One or more of the following dose reduction techniques were used: automated exposure control, adjustment of the mA and/or kV according to patient size, use of iterative reconstruction technique. COMPARISON: None FINDINGS: Brain: No acute infarct or hemorrhage identified. No extra-axial fluid collection. No mass effect or midline shift. Prominent areas of hypoattenuation in the supratentorial white matter likely represent chronic small vessel ischemic changes. Probable remote lacunar infarcts in the thalami. Ventricles and sulci: Prominence of the ventricles and sulci is likely secondary to cerebral volume loss. Cavum septum pellucidum. Bones: Hyperostosis frontalis interna. No bony lesion or fracture. Subcutaneous tissues: Normal. Sinuses: Mild mucosal thickening in the maxillary sinuses. Small polyps versus mucous retention cysts in the right frontal sinus. Mastoid air cells: Normal. Orbits: Grossly unremarkable. Other: Atherosclerotic calcifications in the intracranial vasculature. IMPRESSION: 1. No acute intracranial abnormality. If there is persistent concern for acute infarct, consider further evaluation with MRI. 2. Prominent chronic small vessel ischemic changes and cerebral volume loss. Probable small remote lacunar infarcts in the thalami.
[2020-04-03 16:00] VITALS: BP 161/74
--- NOTE | 2020-04-03 17:22 | Internal Med Progress Note ---
Subjective Date of Service: Apr 03, 2020 Physician Name Bk Kellogg Attending Physician Papa French MD Current Medications Medications (Trade) Dose Ordered Sig/Nick Route PRN Reason Start Time Stop Time Status Last Admin Dose Admin Acetaminophen (Tylenol) 650 mg Q4H PRN ORAL fever (T>100.5) 04/01/20 17:45 05/01/20 17:44 Albuterol/ Ipratropium (Albuterol/ Ipratropium) 3 ml Q4H PRN HHN Shortness of Breath 04/01/20 17:45 04/06/20 17:44 Allopurinol (Zyloprim) 100 mg DAILY ORAL 04/02/20 09:00 05/02/20 08:59 04/02/20 09:30 Carvedilol (Coreg) 12.5 mg EVERY 12 HOURS ORAL 04/01/20 21:00 05/01/20 20:59 04/02/20 22:10 Cefepime HCl 2 gm/ Sodium Chloride 110 ml @ 220 mls/hr EVERY 12 HOURS IV 04/01/20 21:00 04/08/20 20:59 04/03/20 09:43 Clonidine HCl (Catapres TTS-1) 1 patch QWEEK TDERMAL 04/03/20 12:00 07/02/20 11:59 04/03/20 12:08 Clonidine HCl (Catapres Tab) 0.1 mg Q6H PRN ORAL For High Blood Pressure 04/02/20 11:15 07/01/20 11:14 Dextrose (Dextrose 50%) 25 ml Q30M PRN IV Hypoglycemia 04/01/20 17:45 06/30/20 17:44 Dextrose (Dextrose 50%) 50 ml Q30M PRN IV Hypoglycemia 04/01/20 17:45 06/30/20 17:44 Escitalopram Oxalate (Lexapro) 5 mg DAILY ORAL 04/02/20 09:00 05/02/20 08:59 04/02/20 09:30 Gabapentin (Neurontin) 300 mg THREE TIMES A DAY ORAL 04/01/20 18:00 05/01/20 17:59 04/02/20 18:18 Heparin Sodium (Porcine) (Heparin 5000 units/ml) 5,000 units EVERY 12 HOURS SUBQ 04/01/20 21:00 05/16/20 20:59 04/03/20 09:39 Insulin Aspart (NovoLOG) BEFORE MEALS AND HS SUBQ 04/01/20 21:00 06/30/20 20:59 04/03/20 06:11 Ondansetron HCl (Zofran) 4 mg Q6H PRN IVP Nausea & Vomiting 04/01/20 17:45 05/01/20 17:44 Polyethylene Glycol (Miralax) 17 gm DAILYPRN PRN ORAL Constipation 04/01/20 17:45 05/01/20 17:44 Sodium Chloride 1,000 ml @ 50 mls/hr Q20H IV 04/03/20 12:30 05/03/20 12:29 Temazepam (Restoril) 15 mg HSPRN PRN ORAL Insomnia 04/01/20 17:45 04/08/20 17:44 Vancomycin HCl ([facility] pharmacy to dose) 1 ea DAILY PRN MISC PER RX PROTOCOL 04/01/20 18:00 05/01/20 17:59 Vancomycin HCl 1 gm/Sodium Chloride 275 ml @ 183.299 mls/hr Q12HR@0800,1999 IVPB 04/01/20 20:00 04/06/20 19:59 04/03/20 11:00 Allergies: Coded Allergies: No Known Allergies (Unverified , 09/17/12) ROS Limited/Unobtainable: Yes Subjective 74 YO F with history of COVID 19 pneumonia in Mar 2020, admitted with altered mental status. Now UTI and possible sepsis. Cover for Int Ambrocio-Dr French Objective Last Vital Signs Date Time Temp Pulse Resp B/P (MAP) Pulse Ox O2 Delivery O2 Flow Rate FiO2 04/03/20 12:08 170/70 04/03/20 12:00 98.0 53 18 95 04/03/20 09:00 Room Air Laboratory Tests Test 04/02/20 22:13 04/03/20 07:30 04/03/20 12:06 POC Whole Blood Glucose 142 MG/DL (74-106) H 154 MG/DL (74-106) H White Blood Count 9.6 K/UL (4.8-10.8) Red Blood Count 3.35 M/UL (4.20-5.40) L Hemoglobin 9.5 G/DL (12.0-16.0) L Hematocrit 28.8 % (37.0-47.0) L Mean Corpuscular Volume 86 FL (80-99) Mean Corpuscular Hemoglobin 28.4 PG (27.0-31.0) Mean Corpuscular Hemoglobin Concent 33.0 G/DL (32.0-36.0) Red Cell Distribution Width 14.1 % (11.6-14.8) Platelet Count 182 K/UL (150-450) Mean Platelet Volume 7.3 FL (6.5-10.1) Neutrophils (%) (Auto) 63.4 % (45.0-75.0) Lymphocytes (%) (Auto) 21.4 % (20.0-45.0) Monocytes (%) (Auto) 8.4 % (1.0-10.0) Eosinophils (%) (Auto) 3.4 % (0.0-3.0) H Basophils (%) (Auto) 3.4 % (0.0-2.0) H Sodium Level 140 MMOL/L (136-145) Potassium Level 3.8 MMOL/L (3.5-5.1) Chloride Level 109 MMOL/L (98-107) H Carbon Dioxide Level 24 MMOL/L (21-32) Anion Gap 7 mmol/L (5-15) Blood Urea Nitrogen 13 mg/dL (7-18) Creatinine 0.9 MG/DL (0.55-1.30) Estimat Glomerular Filtration Rate > 60 mL/min (>60) Glucose Level 158 MG/DL (74-106) H Calcium Level 8.4 MG/DL (8.5-10.1) L Phosphorus Level 2.6 MG/DL (2.5-4.9) Magnesium Level 1.9 MG/DL (1.8-2.4) Vancomycin Level Trough 16.0 ug/mL (5.0-12.0) H Microbiology Date/Time Source Procedure Growth Status 04/01/20 14:45 Nasopharynx SARS-CoV-2 RdRp Gene Assay - Final Complete Intake and Output 04/02/20 04/03/20 19:00 07:00 Intake Total 1485.000 ml 1120 ml Output Total 1200 ml Balance 1485.000 ml -80 ml Intake Oral 220 ml IV Total 685.000 ml 900 ml Other 800 ml Output Urine Total 1200 ml Objective PHYSICAL EXAMINATION: GENERAL: The patient is altered, less responsive, however, opens her eyes. HEAD AND NECK: Pupils are equal and reactive to light. Extraocular muscles intact. Neck was supple. No JVD. LUNGS: Good air entry. Decreased air in bases. No wheeze or rhonchi. HEART: S1, S2. Distant heart sounds. No murmurs or gallops. ABDOMEN: Soft, nondistended, and nontender. Mildly obese. EXTREMITIES: No cyanosis, clubbing, or edema. NEUROLOGIC: Limited secondary to the patient's status; however, the patient is moving all the extremities spontaneously. Cranial nerves II through XII grossly intact. RECTAL: Refused and deferred. GENITOURINARY: Refused and deferred. Assessment/Plan Assessment/Plan ASSESSMENT: 1. Altered mental status, most likely secondary to toxic metabolic encephalopathy as a result of infection. 2. Recurrent urinary tract infection. 3. COVID-19 positive. 4. Prior history of acute hypoxemic respiratory failure due to COVID-19 infection. 5. Prior history of E. coli ESBL as well as Klebsiella urinary tract infection. 6. Hypertension. 7. Diabetes type 2. 8. Chronic congestive heart failure. 9. Cardiomyopathy. 10. History of breast cancer. 11. Gout. 12. Prior history of CVA. 13. Morbid obesity. 14. Major depressive disorder. 15. urinary tract infection PLAN: 1. Admit the patient to medical floor. 2. antibiotic = cefepime and vancomycin. 3. Code status = Full Code. 4. DVT prophylaxis=heparin subcutaneous. 5. Dr. Lux=Pulmonary Critical Care 6. Dr. Oviedo = Infectious Disease. 7. Await MRI brain 8. CT brain=no acute hemorrhage or infarct Bk Kellogg MD Apr 03, 2020 17:22
--- NOTE | 2020-04-03 18:00 | NUR ---
NURSE NOTES: DR Kellogg was here and updated on patient condition,patient still remains mostly nonverbal.At times through the day she sometimes will respond ,she will say she is in the hospital when asked,but still does not know the day, month or year.She was able to tell me the name of her daughter but after she told me the name of her daughter, she would not answer any other questions . Skin care given,patient had a small Bm . Patient schedule for MRI of brain.Bed alarm is on,call light within reach.
--- NOTE | 2020-04-03 18:38 | NUR ---
CHARGE NURSE NOTE: NO IV access. KIERA sam, CN and primary nurse trying to insert IV line using vein finder - no success. Dr.Mora DR. French aware. PICC line for tomorrow.
--- NOTE | 2020-04-03 19:25 | NUR ---
NURSE HAND-OFF: Waqas JONAS Important Events on Shift:[] Patient Status: [] Diet: [NPO] Pending Orders: []Picc Line,MRI Brain no contrast,Venous duplex bilateral upper extremities Pending Results/Labs:[] Pending MD notification:[] Latest Vital Signs: Temperature 98.4 , Pulse 57 , B/P 161 /74 , Respiratory Rate 18 , O2 SAT 95 , Room Air, O2 Flow Rate . Vital Sign Comment: [] Latest Garcia Fall Score: 50 Fall Risk: High Risk Safety Measures: Call light Within Reach, Bed Alarm Zone 1, Side Rails Side Rails x3, Bed position Low and Locked. Fall Precautions: Yellow Socks y Yellow Gown Door Sign y Patient Fall Education Bed alarm Report given to [].
--- NOTE | 2020-04-03 19:53 | NUR ---
NURSE NOTES: Report received from Marleny JONAS. Patient is noted to be awake and alert x 2. Patient knows name, date or , and that she is at the hospital. Patient is noted to be on room air, does not appear to be in respiratory distress at this time. No complaints of shortness or breath or chest pain at this time. Patient is noted to have no IV access at this time. Was endorsed to Waqas JONAS that it is difficult to obtain IV access, and there was several failed attempts during the day shift. It is noted that the patient does have a PICC line order placed today, consent obtained and is placed in the chart. The patient is noted to have IV antibiotics due tonight, will attempt to gain IV access. Charge Nurse Ricardo is aware. Patient is noted to be on contact and droplet precautions due to testing positive for covid 19. Bed is locked, alarmed, and in lowest position. Call light in reach. Will continue to follow plan of care.
[2020-04-03 20:00] VITALS: BP 141/62
--- NOTE | 2020-04-03 21:30 | NUR ---
NURSE NOTES: Note that the patient was found to have POC blood glucose level of 141. However, Waqas JONAS held ordered insulin due to the patient being NPO and not currently receiving IV fluids due to no IV access. Charge Nurse Ricardo tapia.
--- NOTE | 2020-04-03 21:34 | NUR ---
NURSE NOTES: Was endorsed to Waqas JONAS that several day shift nurses attempted to place IV access and were unsuccessful. Waqas RN was also unsuccessful during this shift. Patient is to have PICC line placed. IV antibiotics to be held due to no IV access. Charge Nurse Ricardo is aware.
[2020-04-04] VITALS (7 sets, daily range): BP systolic 126–169; BP diastolic 62–89
--- NOTE | 2020-04-04 01:59 | NUR ---
NURSE NOTES: PRITESH Garcia attempted to obtain IV access on the patient and was unsuccessful.
--- NOTE | 2020-04-04 02:05 | NUR ---
NURSE NOTES: 24 samuel IV access obtained in right hand. Fluids restarted per MD orders.
--- NOTE | 2020-04-04 04:40 | NUR ---
NURSE NOTES: Unable to obtain laboratory blood. Waqas JONAS informed Abhijeet from the lab. Abhijeet informed Waqas JONAS that he would make note to have one of the setter automatic spinning lathe come draw the patient.
[2020-04-04] MEDS: NovoLOG Insulin Flexpen SUBQ SCH ×4 (06:30→20:25)
--- NOTE | 2020-04-04 07:36 | NUR ---
NURSE NOTES: Report received from Waqas JONAS. Patient seen on rounds, asleep but easily rousable, not in distress, nurse reports patient was more alert this AM. PIV on right hand patent and infusing 1/2 NS @ 50ml/hr. Patient is scheduled for PICC line placement today, will followup, still pending AM lab draw by installation drafter. Noted generalized, dependent edema on bilateral upper and lower extremities. Purewick is attached and draining urine. Bed low and locked, siderails up x2, zone alarms on 1, will continue to monitor.
--- NOTE | 2020-04-04 07:39 | NUR ---
NURSE HAND-OFF: Important Events on Shift: Patient continues to be on precautions for covid 19. Endorsed that patient appears more alert compared to beginning of shift. Patient Status: full code Diet: NPO Pending Orders: none Pending Results/Labs:Morning labs Pending MD notification:none Latest Vital Signs: Temperature 98.9 , Pulse 64 , B/P 140 /71 , Respiratory Rate 18 , O2 SAT 96 , Room Air, O2 Flow Rate . Vital Sign Comment: within normal limits. Latest Garcia Fall Score: 50 Fall Risk: High Risk Safety Measures: Call light Within Reach, Bed Alarm Zone 1, Side Rails Side Rails x3, Bed position Low and Locked. Fall Precautions: Yellow Socks Yellow Gown Door Sign Patient Fall Education Report given to Felipa JONAS.
[2020-04-04] MEDS ORDERED: Lidocaine 1% Plain 30 ml INJ PRN (08:45)
[2020-04-04] MEDS ORDERED: Heparin1,000 units/500ml Premix(Conc:2 units/ml) IV PRN (08:45)
[2020-04-04] MEDS: Cefepime HCl 2 GM in NS 110 ML IV SCH (08:56)
[2020-04-04] MEDS: Allopurinol 100mg Tab ORAL SCH (08:57)
[2020-04-04] MEDS: Heparin 5000 units/ml inj SUBQ SCH ×2 (08:57→20:20)
[2020-04-04] MEDS: Carvedilol 12.5mg tab ORAL SCH ×2 (08:57→20:22)
[2020-04-04] MEDS: Vancomycin 1 GM in NS 275 ML IVPB SCH (09:21)
--- NOTE | 2020-04-04 10:54 | NUR ---
NURSE NOTES: Wound/skin assessment:Left buttock stage 2 pressure ulcer 0.7x0.5x0.2 pink wound bed with scant amount serosanguineous drainage calazime and optifoam applied.Patient is alert and able to move side to side in bed.Educated on keeping pressure off affected site with pressure relief measures.Patient stated understanding.Report given to RN taking care of the patient.
--- NOTE | 2020-04-04 11:21 | Pulmonology Progress Note ---
Subjective ROS Limited/Unobtainable: Yes Constitutional: Reports: no symptoms HEENT: Repors: no symptoms Allergies: Coded Allergies: No Known Allergies (Unverified , 09/17/12) Objective Last 24 Hour Vital Signs Date Time Temp Pulse Resp B/P (MAP) Pulse Ox O2 Delivery O2 Flow Rate FiO2 04/04/20 09:00 Room Air 04/04/20 08:57 64 140/71 04/04/20 08:00 98.1 56 18 169/72 (104) 97 04/04/20 04:00 98.9 64 18 140/71 (94) 96 04/04/20 00:00 98.8 62 18 145/86 (105) 96 04/03/20 22:43 Room Air 04/03/20 21:43 64 141/62 04/03/20 20:00 98.6 65 18 141/62 (88) 96 04/03/20 16:00 98.4 57 18 161/74 (103) 95 04/03/20 12:08 170/70 04/03/20 12:00 98.0 53 18 170/70 (103) 95 Intake and Output 04/03/20 04/04/20 19:00 07:00 Intake Total 260 ml Output Total 800 ml 1400 ml Balance -540 ml -1400 ml IV Total 260 ml Output Urine Total 800 ml 1400 ml # Bowel Movements 1 General Appearance: WD/WN HEENT: normocephalic, atraumatic Respiratory: chest wall non-tender, lungs clear Cardiovascular: normal peripheral pulses, normal rate Abdomen: normal bowel sounds, soft, non tender Genitourinary: normal external genitalia Extremities: no cyanosis Skin: no rash 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 Complete 04/01/20 14:45 Urine,Clean Catch Urine Culture - Preliminary Escherichia Coli - Esbl Resulted 04/01/20 14:45 Nasal Nares MRSA Culture - Final NO METHICILLIN RESISTANT STAPH AUREUS... Complete 04/01/20 14:45 Nasopharynx SARS-CoV-2 RdRp Gene Assay - Final Complete 04/01/20 14:45 Blood Blood Culture - Preliminary NO GROWTH AFTER 48 HOURS Resulted Laboratory Tests 04/03/20 12:06: POC Whole Blood Glucose 154H Current Medications Medications (Trade) Dose Ordered Sig/Nick Route PRN Reason Start Time Stop Time Status Last Admin Dose Admin Acetaminophen (Tylenol) 650 mg Q4H PRN ORAL fever (T>100.5) 04/01/20 17:45 05/01/20 17:44 Albuterol/ Ipratropium (Albuterol/ Ipratropium) 3 ml Q4H PRN HHN Shortness of Breath 04/01/20 17:45 04/06/20 17:44 Allopurinol (Zyloprim) 100 mg DAILY ORAL 04/02/20 09:00 05/02/20 08:59 04/04/20 08:57 Carvedilol (Coreg) 12.5 mg EVERY 12 HOURS ORAL 04/01/20 21:00 05/01/20 20:59 04/04/20 08:57 Cefepime HCl 2 gm/ Sodium Chloride 110 ml @ 220 mls/hr EVERY 12 HOURS IV 04/01/20 21:00 04/08/20 20:59 04/04/20 08:56 Chlorhexidine Gluconate (Esther-Hex 2%) 1 applic DAILY@2000 TOPIC 04/04/20 20:00 07/03/20 19:59 Clonidine HCl (Catapres TTS-1) 1 patch QWEEK TDERMAL 04/03/20 12:00 07/02/20 11:59 04/03/20 12:08 Clonidine HCl (Catapres Tab) 0.1 mg Q6H PRN ORAL For High Blood Pressure 04/02/20 11:15 07/01/20 11:14 Dextrose (Dextrose 50%) 25 ml Q30M PRN IV Hypoglycemia 04/01/20 17:45 06/30/20 17:44 Dextrose (Dextrose 50%) 50 ml Q30M PRN IV Hypoglycemia 04/01/20 17:45 06/30/20 17:44 Escitalopram Oxalate (Lexapro) 5 mg DAILY ORAL 04/02/20 09:00 05/02/20 08:59 04/04/20 08:57 Gabapentin (Neurontin) 300 mg THREE TIMES A DAY ORAL 04/01/20 18:00 05/01/20 17:59 04/04/20 08:57 Heparin Sodium (Porcine) (Heparin 5000 units/ml) 5,000 units EVERY 12 HOURS SUBQ 04/01/20 21:00 05/16/20 20:59 04/03/20 21:43 Heparin Sodium/ Sodium Chloride (Heparin 1000 units/500ml Premix) 1,000 unit ONCE PRN IV PICC LINE 04/04/20 08:45 04/06/20 08:44 Insulin Aspart (NovoLOG) BEFORE MEALS AND HS SUBQ 04/01/20 21:00 06/30/20 20:59 04/03/20 06:11 Lidocaine HCl (Xylocaine 1% 30ml) 30 ml ONCE PRN INJ PICC LINE 04/04/20 08:45 04/06/20 08:44 Ondansetron HCl (Zofran) 4 mg Q6H PRN IVP Nausea & Vomiting 04/01/20 17:45 05/01/20 17:44 Polyethylene Glycol (Miralax) 17 gm DAILYPRN PRN ORAL Constipation 04/01/20 17:45 05/01/20 17:44 Sodium Chloride 1,000 ml @ 50 mls/hr Q20H IV 04/03/20 12:30 05/03/20 12:29 04/04/20 02:15 Temazepam (Restoril) 15 mg HSPRN PRN ORAL Insomnia 04/01/20 17:45 04/08/20 17:44 Vancomycin HCl ([facility] pharmacy to dose) 1 ea DAILY PRN MISC PER RX PROTOCOL 04/01/20 18:00 05/01/20 17:59 Vancomycin HCl 1 gm/Sodium Chloride 275 ml @ 183.299 mls/hr Q12HR@0800,2000 IVPB 04/01/20 20:00 04/06/20 19:59 04/04/20 09:21 Assessment/Plan Problems: (1) Altered level of consciousness (2) UTI (urinary tract infection) (3) 2019 novel coronavirus disease (COVID-19) (4) Diabetes mellitus (5) History of hypertension Assessment/Plan more awake, asking for more food CT of head was negative hi culture iv abx iv fluids aspiration precaution ID evaluation Neuro evaluation dvt prophylaxis siding scale Calli Lux MD Apr 04, 2020 11:21
--- NOTE | 2020-04-04 11:40 | NUR ---
RD ASSESSMENT & RECOMMENDATIONS SEE CARE ACTIVITY FOR COMPLETE ASSESSMENT DAILY ESTIMATED NEEDS: Needs based on Pulmonary, obese/ 72.5kg abw 22-27 kcals/kg 4859-9019 total kcals 1-1.5 g protein/kg 73-109 g total protein 25-30 mL/kg 7495-9673 total fluid mLs NUTRITION DIAGNOSIS: Altered nutrition related lab values R/T DM, HTN as evidenced by elev BGs (118-184), elev BPs (140/71). CURRENT DIET: Regular soft easy chew PO DIET RECOMMENDATIONS: With good po intake, rec CCHO MED/ LOW NA texture as tolerated ADDITIONAL RECOMMENDATIONS: * Standing wt as able for accurate CBW * Monitor po intake, need for snacks and/or supplements * Monitor BGs, need for long acting insulin * Rec WC assessment, f/up w/ eval SUSAN BID for skin integrity . .
--- NOTE | 2020-04-04 13:43 | Infectious Diseases Prog Note ---
Assessment/Plan Assessment/Plan: Recent COVID19 Pneumonia(dx'ed 03/15); still PCR positive- at [facility] -04/01 rapid COVID PCR + CXR: Improved and nearly resolved bilateral interstitial and airspace infiltrates versus edema, over 4 days -03/22 CXR: Cardiomegaly. Decreased and now minimal interstitial congestion -03/21 CXR: Suspect slightly increased interstitial congestion. Cardiomegaly -03/18 rapid COVID PCR + CXR: Possible early infiltrate right midlung. No fever No leukocytosis Acute encephalopathy -04/01 CT head: No acute intracranial abnormality. If there is persistent concern for acute infarct, consider further evaluation with MRI. Prominent chronic small vessel ischemic changes and cerebral volume loss. Probable small remote lacunar infarcts in the thalami. UTI -04/01u/a wbc 60-80, nit +, leuk +3; ucx >100k ESBL E.coli, 20-30k ESBL E.coli hx of Gram positive bacteremia - Likely contaminants -03/21 Bcx neg -03/18 Bcx 1/4 S. warneri, 4 S. hominis; 03/20 Bcx 1/4 S.auricularis; 03/21 Bcx NTD CHF obesity HTN Dm2 CVA Plan: -Switch Cefepime #4 to Ertapenem for ESBL UTI -Dc empiric Vancomycin #4 - f/u Cultures - 03/28/20 SP Decadron #10/ - 03/27/20 SP Meropenem #7/7 for ESBL UTI - 03/25/20 SP IV Vancomcyin #9 - 03/24/20 SP Remdesivir #/ -03/22 SP Azithromycin #6 -03/20 SP Cefepime #4 -03/18 SP Ceftriaxone x1 -f/u cx -Monitor CBC/CMP, temperatures -COVID19 isolation Thank you for this consult. [facility] will continue to follow. Subjective Allergies: Coded Allergies: No Known Allergies (Unverified , 09/17/12) afebrile leukocytosis resolved at [facility] Bcx NTD Objective Last 24 Hour Vital Signs Date Time Temp Pulse Resp B/P (MAP) Pulse Ox O2 Delivery O2 Flow Rate FiO2 04/04/20 12:00 97.3 62 18 126/62 (83) 96 04/04/20 09:00 Room Air 04/04/20 08:57 64 140/71 04/04/20 08:00 98.1 56 18 169/72 (104) 97 04/04/20 04:00 98.9 64 18 140/71 (94) 96 04/04/20 00:00 98.8 62 18 145/86 (105) 96 04/03/20 22:43 Room Air 04/03/20 21:43 64 141/62 04/03/20 20:00 98.6 65 18 141/62 (88) 96 04/03/20 16:00 98.4 57 18 161/74 (103) 95 Height (Feet): 5 Height (Inches): 7.00 Weight (Pounds): 225 GEN: NAD, reports being cold but is not say much else as this time HEENT: NCAT, MMM, EOMI, No scleral icterus NECK Supple No LAD HEART: RRR, S1, S2 LUNGS: CTAB, No W ABD: Soft, NT, ND NEURO: A/o X0 Not following, moving ext Microbiology Date/Time Source Procedure Growth Status 04/02/20 09:50 Indwelling Cath Urine Culture - Final Escherichia Coli Complete 04/01/20 19:45 Blood Blood Culture - Preliminary NO GROWTH AFTER 48 HOURS Resulted 04/01/20 19:30 Blood Blood Culture - Preliminary NO GROWTH AFTER 48 HOURS Resulted 04/01/20 15:00 Blood Blood Culture - Preliminary NO GROWTH AFTER 48 HOURS Resulted 04/01/20 14:45 Rectum - Final NO CARBAPENEM-RESISTANT ENTEROBACTERI... Complete 04/01/20 14:45 Urine,Clean Catch Urine Culture - Preliminary Escherichia Coli - Esbl Resulted 04/01/20 14:45 Nasal Nares MRSA Culture - Final NO METHICILLIN RESISTANT STAPH AUREUS... Complete 04/01/20 14:45 Nasopharynx SARS-CoV-2 RdRp Gene Assay - Final Complete 04/01/20 14:45 Blood Blood Culture - Preliminary NO GROWTH AFTER 48 HOURS Resulted Current Medications Medications (Trade) Dose Ordered Sig/Nick Route PRN Reason Start Time Stop Time Status Last Admin Dose Admin Acetaminophen (Tylenol) 650 mg Q4H PRN ORAL fever (T>100.5) 04/01/20 17:45 05/01/20 17:44 Albuterol/ Ipratropium (Albuterol/ Ipratropium) 3 ml Q4H PRN HHN Shortness of Breath 04/01/20 17:45 04/06/20 17:44 Allopurinol (Zyloprim) 100 mg DAILY ORAL 04/02/20 09:00 05/02/20 08:59 04/04/20 08:57 Carvedilol (Coreg) 12.5 mg EVERY 12 HOURS ORAL 04/01/20 21:00 05/01/20 20:59 04/04/20 08:57 Cefepime HCl 2 gm/ Sodium Chloride 110 ml @ 220 mls/hr EVERY 12 HOURS IV 04/01/20 21:00 04/08/20 20:59 04/04/20 08:56 Chlorhexidine Gluconate (Esther-Hex 2%) 1 applic DAILY@2000 TOPIC 04/04/20 20:00 07/03/20 19:59 Clonidine HCl (Catapres TTS-1) 1 patch QWEEK TDERMAL 04/03/20 12:00 07/02/20 11:59 04/03/20 12:08 Clonidine HCl (Catapres Tab) 0.1 mg Q6H PRN ORAL For High Blood Pressure 04/02/20 11:15 07/01/20 11:14 Dextrose (Dextrose 50%) 25 ml Q30M PRN IV Hypoglycemia 04/01/20 17:45 06/30/20 17:44 Dextrose (Dextrose 50%) 50 ml Q30M PRN IV Hypoglycemia 04/01/20 17:45 06/30/20 17:44 Escitalopram Oxalate (Lexapro) 5 mg DAILY ORAL 04/02/20 09:00 05/02/20 08:59 04/04/20 08:57 Gabapentin (Neurontin) 300 mg THREE TIMES A DAY ORAL 04/01/20 18:00 05/01/20 17:59 04/04/20 12:08 Heparin Sodium (Porcine) (Heparin 5000 units/ml) 5,000 units EVERY 12 HOURS SUBQ 04/01/20 21:00 05/16/20 20:59 04/03/20 21:43 Heparin Sodium/ Sodium Chloride (Heparin 1000 units/500ml Premix) 1,000 unit ONCE PRN IV PICC LINE 04/04/20 08:45 04/06/20 08:44 Insulin Aspart (NovoLOG) BEFORE MEALS AND HS SUBQ 04/01/20 21:00 06/30/20 20:59 10/5/20 11:38 Lidocaine HCl (Xylocaine 1% 30ml) 30 ml ONCE PRN INJ PICC LINE 04/04/20 08:45 04/06/20 08:44 Ondansetron HCl (Zofran) 4 mg Q6H PRN IVP Nausea & Vomiting 04/01/20 17:45 05/01/20 17:44 Polyethylene Glycol (Miralax) 17 gm DAILYPRN PRN ORAL Constipation 04/01/20 17:45 05/01/20 17:44 Sodium Chloride 1,000 ml @ 50 mls/hr Q20H IV 04/03/20 12:30 05/03/20 12:29 04/04/20 02:15 Temazepam (Restoril) 15 mg HSPRN PRN ORAL Insomnia 04/01/20 17:45 04/08/20 17:44 Vancomycin HCl ([facility] pharmacy to dose) 1 ea DAILY PRN MISC PER RX PROTOCOL 04/01/20 18:00 05/01/20 17:59 Vancomycin HCl 1 gm/Sodium Chloride 275 ml @ 183.299 mls/hr Q12HR@0800,1999 IVPB 04/01/20 20:00 04/06/20 19:59 04/04/20 09:21 Kathryn Hernandez M.D. Apr 04, 2020 13:43
[2020-04-04] MEDS: Ertapenem 1 GM in NS 55 ML IV SCH (15:52)
--- NOTE | 2020-04-04 16:07 | NUR ---
CASE MANAGEMENT:INITIAL REVIEW 04/02/20 74 YR OLD FEMALE BIBA FROM [facility] CC;ALOC SI;COVID POSITIVE. AMS. 98.2 55 18 180/61 96% ON RA WBC 12.8 BG 184 ALB 3.1 UA+ PROTEIN, KETONES, LEUKOCYTE ESTERASE, RBC, WBC, SQUAMOUS EPITH CELLS, BACTERIA VANCO TROUGH 16.0 COVID RAPID - POSITIVE CXR ~ Improved and nearly resolved bilateral interstitial and airspace infiltrates versus edema, over 4 days IS;IVF NS BOLUS ROCEPHIN IV CATAPRES PO ADMITTED TO MED SURG 04/02/20 @ 2239 MED SURG STATUS CASE MANAGEMENT:REVIEW 04/04/20 SI;COVID PNEUMONIA. UTI. 98.9 56 18 169/72 96% ON RA IS;ERTAPENEM IV Q24 IVF NS @ 50 ML/HR HEPARIN SUBQ Q12 COREG PO Q12 MED SURG STATUS DCP;FROM [facility]
--- NOTE | 2020-04-04 16:41 | NUR ---
RADIOLOGY NOTE: LEFT EXTREMITY PICC LINE PLACEMENT BY DR. RADHA HALL AT 1600 HRS. FA
[2020-04-04 17:13] LABS: BASOPHILS % (AUTO) 0.6 % (0.0-2.0); EOSINOPHILS % (AUTO) 2.8 % (0.0-3.0); HEMATOCRIT 30.9 % (37.0-47.0); HEMOGLOBIN 9.8 G/DL (12.0-16.0); LYMPHOCYTES % (AUTO) 22.7 % (20.0-45.0); MEAN CORPUSCULAR VOLUME 90 FL (80-99); MONOCYTES % (AUTO) 8.3 % (1.0-10.0); NEUTROPHILS % (AUTO) 65.6 % (45.0-75.0); PLATELET COUNT 188 K/UL (150-450); RED BLOOD COUNT 3.45 M/UL (4.20-5.40); RED CELL DISTRIBUTION WIDTH 15.5 % (11.6-14.8); WHITE BLOOD COUNT 11.2 K/UL (4.8-10.8)
--- NOTE | 2020-04-04 17:21 | Brief Operative Note ---
Immediate Post Operative Note Operative Note Pre-op Diagnosis: needs central IV access Procedure: PICC Post-op Diagnosis: same as pre-op Surgeon: Samuel Guzmán Specimen: none Complications: none Fluids: none Implant(s) used?: No Cristhian Guzmán MD Apr 04, 2020 17:21
--- NOTE | 2020-04-04 17:27 | Diagnostic Imaging Report ---
Indications: Needs long-term IV access Technique: Procedure performed at bedside. Procedural timeout performed. Ultrasound confirms patent compressible left basilic vein. Total sterile technique, including sterile probe cover and sterile gel, sterile gloves, hand hygiene, hat, mask,, sterile gown, large sterile drape, and preparation with 2% chlorhexidine utilized. Local anesthesia with 1% lidocaine. Under real-time ultrasound guidance, puncture basilic vein using 21-gauge needle, passage 0.018 guidewire, exchange for 4 Bulgarian peel-away sheath. 4 Bulgarian Bard dual-lumen power PICC cut to 45 cm. It was inserted through the peel-away sheath. Peel-away sheath and guidewire removed. Catheter fixed to the skin. Both catheter ports aspirated and flushed. Patient tolerated procedure well, without immediate complication. Followup chest x-ray obtained, documents catheter tip position at the mid superior vena cava Impression: Successful bedside placement of left PICC under sonographic guidance, as described above.
[2020-04-04 17:42] LABS: ALANINE AMINOTRANSFERASE 34 U/L (12-78); ALBUMIN 2.8 G/DL (3.4-5.0); ALBUMIN/GLOBULIN RATIO 0.9 (1.0-2.7); ALKALINE PHOSPHATASE 106 U/L (46-116); BILIRUBIN,TOTAL 0.5 MG/DL (0.2-1.0); BLOOD UREA NITROGEN 10 mg/dL (7-18); CALCIUM 8.7 MG/DL (8.5-10.1); CARBON DIOXIDE 30 MMOL/L (21-32); CHLORIDE 102 MMOL/L (98-107); CREATININE 1.2 MG/DL (0.55-1.30); PHOSPHORUS 3.1 MG/DL (2.5-4.9); POTASSIUM 3.7 MMOL/L (3.5-5.1); SODIUM 138 MMOL/L (136-145)
--- NOTE | 2020-04-04 18:39 | Internal Med Progress Note ---
Subjective Date of Service: Apr 04, 2020 Physician Name Bk Kellogg Attending Physician Ppaa French MD Current Medications Medications (Trade) Dose Ordered Sig/Nick Route PRN Reason Start Time Stop Time Status Last Admin Dose Admin Acetaminophen (Tylenol) 650 mg Q4H PRN ORAL fever (T>100.5) 04/01/20 17:45 05/01/20 17:44 Albuterol/ Ipratropium (Albuterol/ Ipratropium) 3 ml Q4H PRN HHN Shortness of Breath 04/01/20 17:45 04/06/20 17:44 Allopurinol (Zyloprim) 100 mg DAILY ORAL 04/02/20 09:00 05/02/20 08:59 04/04/20 08:57 Carvedilol (Coreg) 12.5 mg EVERY 12 HOURS ORAL 04/01/20 21:00 05/01/20 20:59 04/04/20 08:57 Chlorhexidine Gluconate (Esther-Hex 2%) 1 applic DAILY@2000 TOPIC 04/04/20 20:00 07/03/20 19:59 Clonidine HCl (Catapres TTS-1) 1 patch QWEEK TDERMAL 04/03/20 12:00 07/02/20 11:59 04/03/20 12:08 Clonidine HCl (Catapres Tab) 0.1 mg Q6H PRN ORAL For High Blood Pressure 04/02/20 11:15 07/01/20 11:14 04/04/20 17:14 Dextrose (Dextrose 50%) 25 ml Q30M PRN IV Hypoglycemia 04/01/20 17:45 06/30/20 17:44 Dextrose (Dextrose 50%) 50 ml Q30M PRN IV Hypoglycemia 04/01/20 17:45 06/30/20 17:44 Ertapenem 1 gm/ Sodium Chloride 55 ml @ 110 mls/hr Q24H IV 04/04/20 15:00 04/09/20 14:59 04/04/20 15:52 Escitalopram Oxalate (Lexapro) 5 mg DAILY ORAL 04/02/20 09:00 05/02/20 08:59 04/04/20 08:57 Gabapentin (Neurontin) 300 mg THREE TIMES A DAY ORAL 04/01/20 18:00 05/01/20 17:59 04/04/20 17:15 Heparin Sodium (Porcine) (Heparin 5000 units/ml) 5,000 units EVERY 12 HOURS SUBQ 04/01/20 21:00 05/16/20 20:59 04/03/20 21:43 Heparin Sodium/ Sodium Chloride (Heparin 1000 units/500ml Premix) 1,000 unit ONCE PRN IV PICC LINE 04/04/20 08:45 04/06/20 08:44 Insulin Aspart (NovoLOG) BEFORE MEALS AND HS SUBQ 04/01/20 21:00 06/30/20 20:59 04/04/20 17:08 Lidocaine HCl (Xylocaine 1% 30ml) 30 ml ONCE PRN INJ PICC LINE 04/04/20 08:45 04/06/20 08:44 Ondansetron HCl (Zofran) 4 mg Q6H PRN IVP Nausea & Vomiting 04/01/20 17:45 05/01/20 17:44 Polyethylene Glycol (Miralax) 17 gm DAILYPRN PRN ORAL Constipation 04/01/20 17:45 05/01/20 17:44 Sodium Chloride 1,000 ml @ 50 mls/hr Q20H IV 04/03/20 12:30 05/03/20 12:29 04/04/20 02:15 Temazepam (Restoril) 15 mg HSPRN PRN ORAL Insomnia 04/01/20 17:45 04/08/20 17:44 Allergies: Coded Allergies: No Known Allergies (Unverified , 09/17/12) ROS Limited/Unobtainable: Yes Subjective 74 YO F with history of COVID 19 pneumonia in Mar 2020, admitted with altered mental status. Now UTI and possible sepsis. Cover for Int [facility]roc[facility]-Dr French Objective Last Vital Signs Date Time Temp Pulse Resp B/P (MAP) Pulse Ox O2 Delivery O2 Flow Rate FiO2 04/04/20 17:14 160/89 04/04/20 17:10 98.2 62 20 97 04/04/20 09:00 Room Air Laboratory Tests Test 04/04/20 17:00 White Blood Count 11.2 K/UL (4.8-10.8) H Red Blood Count 3.45 M/UL (4.20-5.40) L Hemoglobin 9.8 G/DL (12.0-16.0) L Hematocrit 30.9 % (37.0-47.0) L Mean Corpuscular Volume 90 FL (80-99) Mean Corpuscular Hemoglobin 28.3 PG (27.0-31.0) Mean Corpuscular Hemoglobin Concent 31.6 G/DL (32.0-36.0) L Red Cell Distribution Width 15.5 % (11.6-14.8) H Platelet Count 188 K/UL (150-450) Mean Platelet Volume 7.8 FL (6.5-10.1) Neutrophils (%) (Auto) 65.6 % (45.0-75.0) Lymphocytes (%) (Auto) 22.7 % (20.0-45.0) Monocytes (%) (Auto) 8.3 % (1.0-10.0) Eosinophils (%) (Auto) 2.8 % (0.0-3.0) Basophils (%) (Auto) 0.6 % (0.0-2.0) Erythrocyte Sedimentation Rate 95 MM/HR (0-30) H Sodium Level 138 MMOL/L (136-145) Potassium Level 3.7 MMOL/L (3.5-5.1) Chloride Level 102 MMOL/L (98-107) Carbon Dioxide Level 30 MMOL/L (21-32) Blood Urea Nitrogen 10 mg/dL (7-18) Creatinine 1.2 MG/DL (0.55-1.30) Estimat Glomerular Filtration Rate 53.3 mL/min (>60) Glucose Level 139 MG/DL (74-106) H Calcium Level 8.7 MG/DL (8.5-10.1) Phosphorus Level 3.1 MG/DL (2.5-4.9) Magnesium Level 1.8 MG/DL (1.8-2.4) Total Bilirubin 0.5 MG/DL (0.2-1.0) Aspartate Amino Transf (AST/SGOT) Pending Alanine Aminotransferase (ALT/SGPT) 34 U/L (12-78) Alkaline Phosphatase 106 U/L (46-116) C-Reactive Protein, Quantitative 2.2 mg/dL (0.00-0.90) H Total Protein 6.0 G/DL (6.4-8.2) L Albumin 2.8 G/DL (3.4-5.0) L Globulin 3.2 g/dL Albumin/Globulin Ratio 0.9 (1.0-2.7) L Microbiology Date/Time Source Procedure Growth Status 04/02/20 09:50 Indwelling Cath Urine Culture - Final Escherichia Coli Complete 04/01/20 19:45 Blood Blood Culture - Preliminary NO GROWTH AFTER 48 HOURS Resulted 04/01/20 19:30 Blood Blood Culture - Preliminary NO GROWTH AFTER 48 HOURS Resulted Intake and Output 04/03/20 04/04/20 19:00 07:00 Intake Total 260 ml 50 ml Output Total 800 ml 1400 ml Balance -540 ml -1350 ml IV Total 260 ml 50 ml Output Urine Total 800 ml 1400 ml # Bowel Movements 1 Objective PHYSICAL EXAMINATION: GENERAL: The patient is altered, less responsive, however, opens her eyes. HEAD AND NECK: Pupils are equal and reactive to light. Extraocular muscles intact. Neck was supple. No JVD. LUNGS: Good air entry. Decreased air in bases. No wheeze or rhonchi. HEART: S1, S2. Distant heart sounds. No murmurs or gallops. ABDOMEN: Soft, nondistended, and nontender. Mildly obese. EXTREMITIES: No cyanosis, clubbing, or edema. NEUROLOGIC: Limited secondary to the patient's status; however, the patient is moving all the extremities spontaneously. Cranial nerves II through XII grossly intact. RECTAL: Refused and deferred. GENITOURINARY: Refused and deferred. Assessment/Plan Assessment/Plan ASSESSMENT: 1. Altered mental status, most likely secondary to toxic metabolic encephalopathy as a result of infection. 2. Recurrent urinary tract infection. 3. COVID-19 positive. 4. Prior history of acute hypoxemic respiratory failure due to COVID-19 infection. 5. Prior history of E. coli ESBL as well as Klebsiella urinary tract infection. 6. Hypertension. 7. Diabetes type 2. 8. Chronic congestive heart failure. 9. Cardiomyopathy. 10. History of breast cancer. 11. Gout. 12. Prior history of CVA. 13. Morbid obesity. 14. Major depressive disorder. 15. urinary tract infection=ESBL E. Coli PLAN: 1. Admit the patient to medical floor. 2. antibiotic = ertapenem; S/P cefepime and vancomycin. 3. Code status = Full Code. 4. DVT prophylaxis=heparin subcutaneous. 5. Dr. Lux=Pulmonary Critical Care 6. Dr. Oviedo = Infectious Disease. 7. Await MRI brain 8. CT brain=no acute hemorrhage or infarct 9. Await MRI brain Bk Kellogg MD Apr 04, 2020 18:39
[2020-04-04 18:47] LABS: ASPARTATE AMINO TRANSFERASE 17 U/L (15-37)
--- NOTE | 2020-04-04 19:14 | NUR ---
NURSE HAND-OFF: Important Events on Shift: S/P PICC line insertion on LEYLA, Regular diet ordered and patient had good appetite Patient Status: Stable Diet: Regular soft easy chew Pending Orders: Brain MRI/ Venous duplex, Labs in AM Pending Results/Labs: None Pending MD notification:None Latest Vital Signs: Temperature 98.2 , Pulse 62 , B/P 160 /89 , Respiratory Rate 20 , O2 SAT 97 , Room Air, O2 Flow Rate . Vital Sign Comment: Latest Garcia Fall Score: 50 Fall Risk: High Risk Safety Measures: Call light Within Reach, Bed Alarm Zone 1, Side Rails Side Rails x3, Bed position Low and Locked. Fall Precautions: Yellow Socks Yellow Gown Door Sign Patient Fall Education Report given to Radha JONAS.
[2020-04-04] MEDS: Dyna-Hex 2% Top Sol 2oz TOPIC SCH (20:19)
--- NOTE | 2020-04-04 21:14 | NUR ---
NURSE NOTES: Received report from PRITESH Leo. Pt is sleeping in bed and lethargic, rousable by shaking. On room air. No labored breathing. PICC line on LEYLA intact and running IVF. Isolation maintained. VD and MRI brain pending. Pt has edema on bilateral lower legs. Bed locked, lowest position, alarm on, side rails up, call light within reach. Will continue to monitor. Addendum: 04/05/20 at 0623 by JASMEET HURTADO RN RN Correct time is 1909
[2020-04-05] VITALS: BP 158/57
[2020-04-05 04:00] VITALS: BP 147/75
[2020-04-05] MEDS: NovoLOG Insulin Flexpen SUBQ SCH ×4 (05:42→20:29)
--- NOTE | 2020-04-05 06:24 | NUR ---
NURSE NOTES: Provided incontinent care and wound dressing changed. Addendum: 04/05/20 at 0624 by JASMEET HURTADO RN RN PICC line dressing changed
[2020-04-05 06:30] LABS: BASOPHILS % (AUTO) 0.6 % (0.0-2.0); EOSINOPHILS % (AUTO) 2.4 % (0.0-3.0); HEMATOCRIT 28.7 % (37.0-47.0); HEMOGLOBIN 9.1 G/DL (12.0-16.0); MEAN CORPUSCULAR VOLUME 87 FL (80-99); MONOCYTES % (AUTO) 8.2 % (1.0-10.0); NEUTROPHILS % (AUTO) 66.7 % (45.0-75.0); PLATELET COUNT 155 K/UL (150-450); RED CELL DISTRIBUTION WIDTH 14.7 % (11.6-14.8); WHITE BLOOD COUNT 10.2 K/UL (4.8-10.8)
--- NOTE | 2020-04-05 06:44 | NUR ---
NURSE HAND-OFF: Important Events on Shift:PICC line dressing change Patient Status: stable Diet: Reg soft easy chew Pending Orders: MRI brain and VD Pending Results/Labs:AM lab Pending MD notification:N Latest Vital Signs: Temperature 98.2 , Pulse 59 , B/P 147 /75 , Respiratory Rate 18 , O2 SAT 94 , Room Air, O2 Flow Rate . Vital Sign Comment: [] Latest Garcia Fall Score: 50 Fall Risk: High Risk Safety Measures: Call light Within Reach, Bed Alarm Zone 1, Side Rails Side Rails x3, Bed position Low and Locked. Fall Precautions: Yellow Socks Yellow Gown Door Sign Patient Fall Education Addendum: 04/05/20 at 0722 by JASMEET HURTADO RN RN HAND-OFF: Report given to PRITESH Payne.
--- NOTE | 2020-04-05 07:49 | NUR ---
NURSE NOTES: pt is asleep in bed and arousable. respiration is even and unlabored with o2 @ 2l inplace via NC. HOB elevated. no acute distress noted at this time. placed call light within reach.
[2020-04-05 08:00] VITALS: BP 173/80
--- NOTE | 2020-04-05 09:28 | Pulmonology Progress Note ---
Subjective ROS Limited/Unobtainable: Yes Constitutional: Reports: no symptoms HEENT: Repors: no symptoms Allergies: Coded Allergies: No Known Allergies (Unverified , 09/17/12) Objective Last 24 Hour Vital Signs Date Time Temp Pulse Resp B/P (MAP) Pulse Ox O2 Delivery O2 Flow Rate FiO2 04/05/20 04:00 98.2 59 18 147/75 (99) 94 04/05/20 00:00 97.9 61 18 158/57 (90) 95 04/04/20 21:00 Room Air 04/04/20 20:22 54 136/69 04/04/20 20:00 98.2 54 18 136/69 (91) 93 04/04/20 17:14 160/89 04/04/20 17:10 98.2 62 20 160/89 (112) 97 04/04/20 16:00 97.5 67 16 135/77 (96) 96 04/04/20 12:00 97.3 62 18 126/62 (83) 96 Intake and Output 04/04/20 04/05/20 19:00 07:00 Intake Total 1405 ml 860 ml Balance 1405 ml 860 ml Intake Oral 720 ml IV Total 685 ml 500 ml Other 360 ml # Voids 2 # Bowel Movements 1 1 General Appearance: WD/WN HEENT: normocephalic, atraumatic Respiratory: chest wall non-tender, lungs clear Cardiovascular: normal peripheral pulses, normal rate Abdomen: normal bowel sounds, soft, non tender Genitourinary: normal external genitalia Extremities: no cyanosis Skin: no rash Neurologic: shank piece tacker II-XII grossly normal Microbiology Date/Time Source Procedure Growth Status 04/02/20 09:50 Indwelling Cath Urine Culture - Final Escherichia Coli Complete Laboratory Tests 04/04/20 17:00: White Blood Count 11.2H, Red Blood Count 3.45L, Hemoglobin 9.8L, Hematocrit 30.9L, Mean Corpuscular Volume 90, Mean Corpuscular Hemoglobin 28.3, Mean Corpuscular Hemoglobin Concent 31.6L, Red Cell Distribution Width 15.5H, Platelet Count 188, Mean Platelet Volume 7.8, Neutrophils (%) (Auto) 65.6, Lymphocytes (%) (Auto) 22.7, Monocytes (%) (Auto) 8.3, Eosinophils (%) (Auto) 2.8, Basophils (%) (Auto) 0.6, Erythrocyte Sedimentation Rate 95H, Sodium Level 138, Potassium Level 3.7, Chloride Level 102, Carbon Dioxide Level 30, Blood Urea Nitrogen 10, Creatinine 1.2, Estimat Glomerular Filtration Rate 53.3, Glucose Level 139H, Calcium Level 8.7, Phosphorus Level 3.1, Magnesium Level 1.8, Total Bilirubin 0.5, Aspartate Amino Transf (AST/SGOT) 17, Alanine Aminotransferase (ALT/SGPT) 34, Alkaline Phosphatase 106, C-Reactive Protein, Quantitative 2.2H, Total Protein 6.0L, Albumin 2.8L, Globulin 3.2, Albumin/Globulin Ratio 0.9L 04/05/20 04:00: White Blood Count 10.2, Red Blood Count 3.30L, Hemoglobin 9.1L, Hematocrit 28.7L , Mean Corpuscular Volume 87, Mean Corpuscular Hemoglobin 27.6, Mean Corpuscular Hemoglobin Concent 31.7L, Red Cell Distribution Width 14.7, Platelet Count 155, Mean Platelet Volume 6.4L, Neutrophils (%) (Auto) 66.7, Lymphocytes (%) (Auto) 22.0, Monocytes (%) (Auto) 8.2, Eosinophils (%) (Auto) 2.4, Basophils (%) (Auto) 0.6 Current Medications Medications (Trade) Dose Ordered Sig/Nick Route PRN Reason Start Time Stop Time Status Last Admin Dose Admin Acetaminophen (Tylenol) 650 mg Q4H PRN ORAL fever (T>100.5) 04/01/20 17:45 05/01/20 17:44 Albuterol/ Ipratropium (Albuterol/ Ipratropium) 3 ml Q4H PRN HHN Shortness of Breath 04/01/20 17:45 04/06/20 17:44 Allopurinol (Zyloprim) 100 mg DAILY ORAL 04/02/20 09:00 05/02/20 08:59 04/04/20 08:57 Carvedilol (Coreg) 12.5 mg EVERY 12 HOURS ORAL 04/01/20 21:00 05/01/20 20:59 04/04/20 20:22 Chlorhexidine Gluconate (Esther-Hex 2%) 1 applic DAILY@1999 TOPIC 04/04/20 20:00 07/03/20 19:59 04/04/20 20:19 Clonidine HCl (Catapres TTS-1) 1 patch QWEEK TDERMAL 04/03/20 12:00 07/02/20 11:59 04/03/20 12:08 Clonidine HCl (Catapres Tab) 0.1 mg Q6H PRN ORAL For High Blood Pressure 04/02/20 11:15 07/01/20 11:14 04/04/20 17:14 Dextrose (Dextrose 50%) 25 ml Q30M PRN IV Hypoglycemia 04/01/20 17:45 06/30/20 17:44 Dextrose (Dextrose 50%) 50 ml Q30M PRN IV Hypoglycemia 04/01/20 17:45 06/30/20 17:44 Ertapenem 1 gm/ Sodium Chloride 55 ml @ 110 mls/hr Q24H IV 04/04/20 15:00 04/09/20 14:59 04/04/20 15:52 Escitalopram Oxalate (Lexapro) 5 mg DAILY ORAL 04/02/20 09:00 05/02/20 08:59 04/04/20 08:57 Gabapentin (Neurontin) 300 mg THREE TIMES A DAY ORAL 04/01/20 18:00 05/01/20 17:59 04/04/20 17:15 Heparin Sodium (Porcine) (Heparin 5000 units/ml) 5,000 units EVERY 12 HOURS SUBQ 04/01/20 21:00 05/16/20 20:59 04/04/20 20:20 Heparin Sodium/ Sodium Chloride (Heparin 1000 units/500ml Premix) 1,000 unit ONCE PRN IV PICC LINE 04/04/20 08:45 04/06/20 08:44 Insulin Aspart (NovoLOG) BEFORE MEALS AND HS SUBQ 04/01/20 21:00 06/30/20 20:59 04/05/20 05:42 Lidocaine HCl (Xylocaine 1% 30ml) 30 ml ONCE PRN INJ PICC LINE 04/04/20 08:45 04/06/20 08:44 Ondansetron HCl (Zofran) 4 mg Q6H PRN IVP Nausea & Vomiting 04/01/20 17:45 05/01/20 17:44 Polyethylene Glycol (Miralax) 17 gm DAILYPRN PRN ORAL Constipation 04/01/20 17:45 05/01/20 17:44 Sodium Chloride 1,000 ml @ 50 mls/hr Q20H IV 04/03/20 12:30 05/03/20 12:29 04/05/20 03:50 Temazepam (Restoril) 15 mg HSPRN PRN ORAL Insomnia 04/01/20 17:45 04/08/20 17:44 Assessment/Plan Problems: (1) Altered level of consciousness (2) UTI (urinary tract infection) (3) 2019 novel coronavirus disease (COVID-19) (4) Diabetes mellitus (5) History of hypertension Assessment/Plan wbc WNOL CT of head was negative hi culture iv abx by ID iv fluids aspiration precaution ID evaluation appreciated Neuro evaluation dvt prophylaxis siding scale Calli Lux MD Apr 05, 2020 09:28
[2020-04-05] MEDS: Carvedilol 12.5mg tab ORAL SCH ×2 (09:43→20:26)
[2020-04-05] MEDS: Allopurinol 100mg Tab ORAL SCH (09:44)
[2020-04-05] MEDS: Heparin 5000 units/ml inj SUBQ SCH ×2 (09:45→20:28)
[2020-04-05 12:00] VITALS: BP 162/65
--- NOTE | 2020-04-05 12:11 | Infectious Diseases Prog Note ---
Assessment/Plan Assessment/Plan: Recent COVID19 Pneumonia(dx'ed 03/15); still PCR positive- at RA -04/01 rapid COVID PCR + CXR: Improved and nearly resolved bilateral interstitial and airspace infiltrates versus edema, over 4 days -03/22 CXR: Cardiomegaly. Decreased and now minimal interstitial congestion -03/21 CXR: Suspect slightly increased interstitial congestion. Cardiomegaly -03/18 rapid COVID PCR + CXR: Possible early infiltrate right midlung. No fever No leukocytosis Acute encephalopathy -04/01 CT head: No acute intracranial abnormality. If there is persistent concern for acute infarct, consider further evaluation with MRI. Prominent chronic small vessel ischemic changes and cerebral volume loss. Probable small remote lacunar infarcts in the thalami. UTI -04/01u/a wbc 60-80, nit +, leuk +3; ucx >100k ESBL E.coli, 20-30k ESBL E.coli hx of Gram positive bacteremia - Likely contaminants -03/21 Bcx neg -03/18 Bcx 1/4 S. warneri, 07/04 S. hominis; 03/20 Bcx 1/4 S.auricularis; 03/21 Bcx NTD CHF obesity HTN Dm2 CVA Plan: - Ertapenem #2 for ESBL UTI - f/u Cultures -04/04 SP IV Vancomycin #4, Cefepime #4 - 03/28/20 SP Decadron #10/ - 03/27/20 SP Meropenem #7/7 for ESBL UTI - 03/25/20 SP IV Vancomcyin #9 - 03/24/20 SP Remdesivir #5/5 -03/22 SP Azithromycin #6 -03/20 SP Cefepime #4 -03/18 SP Ceftriaxone x1 -f/u cx -Monitor CBC/CMP, temperatures -on COVID19 isolation; at this point can dc isolation as more than 10 days and afebrile; symptoms resolved Thank you for this consult. [facility] will continue to follow. Subjective Allergies: Coded Allergies: No Known Allergies (Unverified , 09/17/12) afebrile no leukocytosis cr mildly increased at RA Objective Last 24 Hour Vital Signs Date Time Temp Pulse Resp B/P (MAP) Pulse Ox O2 Delivery O2 Flow Rate FiO2 04/05/20 09:44 173/80 04/05/20 09:43 69 173/80 04/05/20 09:00 Room Air 04/05/20 08:00 97.7 69 18 173/80 (111) 93 04/05/20 04:00 98.2 59 18 147/75 (99) 94 04/05/20 00:00 97.9 61 18 158/57 (90) 95 04/04/20 21:00 Room Air 04/04/20 20:22 54 136/69 04/04/20 20:00 98.2 54 18 136/69 (91) 93 04/04/20 17:14 160/89 04/04/20 17:10 98.2 62 20 160/89 (112) 97 04/04/20 16:00 97.5 67 16 135/77 (96) 96 Height (Feet): 5 Height (Inches): 7.00 Weight (Pounds): 225 GEN: NAD HEENT: NCAT, MMM, EOMI, No scleral icterus NECK Supple No LAD HEART: RRR, S1, S2 LUNGS: CTAB, No W ABD: Soft, NT, ND NEURO: A/o X0 Not following, moving ext Laboratory Tests Test 04/04/20 17:00 04/05/20 04:00 White Blood Count 11.2 K/UL (4.8-10.8) H 10.2 K/UL (4.8-10.8) Red Blood Count 3.45 M/UL (4.20-5.40) L 3.30 M/UL (4.20-5.40) L Hemoglobin 9.8 G/DL (12.0-16.0) L 9.1 G/DL (12.0-16.0) L Hematocrit 30.9 % (37.0-47.0) L 28.7 % (37.0-47.0) L Mean Corpuscular Volume 90 FL (80-99) 87 FL (80-99) Mean Corpuscular Hemoglobin 28.3 PG (27.0-31.0) 27.6 PG (27.0-31.0) Mean Corpuscular Hemoglobin Concent 31.6 G/DL (32.0-36.0) L 31.7 G/DL (32.0-36.0) L Red Cell Distribution Width 15.5 % (11.6-14.8) H 14.7 % (11.6-14.8) Platelet Count 188 K/UL (150-450) 155 K/UL (150-450) Mean Platelet Volume 7.8 FL (6.5-10.1) 6.4 FL (6.5-10.1) L Neutrophils (%) (Auto) 65.6 % (45.0-75.0) 66.7 % (45.0-75.0) Lymphocytes (%) (Auto) 22.7 % (20.0-45.0) 22.0 % (20.0-45.0) Monocytes (%) (Auto) 8.3 % (1.0-10.0) 8.2 % (1.0-10.0) Eosinophils (%) (Auto) 2.8 % (0.0-3.0) 2.4 % (0.0-3.0) Basophils (%) (Auto) 0.6 % (0.0-2.0) 0.6 % (0.0-2.0) Erythrocyte Sedimentation Rate 95 MM/HR (0-30) H Sodium Level 138 MMOL/L (136-145) Potassium Level 3.7 MMOL/L (3.5-5.1) Chloride Level 102 MMOL/L (98-107) Carbon Dioxide Level 30 MMOL/L (21-32) Blood Urea Nitrogen 10 mg/dL (7-18) Creatinine 1.2 MG/DL (0.55-1.30) Estimat Glomerular Filtration Rate 53.3 mL/min (>60) Glucose Level 139 MG/DL (74-106) H Calcium Level 8.7 MG/DL (8.5-10.1) Phosphorus Level 3.1 MG/DL (2.5-4.9) Magnesium Level 1.8 MG/DL (1.8-2.4) Total Bilirubin 0.5 MG/DL (0.2-1.0) Aspartate Amino Transf (AST/SGOT) 17 U/L (15-37) Alanine Aminotransferase (ALT/SGPT) 34 U/L (12-78) Alkaline Phosphatase 106 U/L (46-116) C-Reactive Protein, Quantitative 2.2 mg/dL (0.00-0.90) H Total Protein 6.0 G/DL (6.4-8.2) L Albumin 2.8 G/DL (3.4-5.0) L Globulin 3.2 g/dL Albumin/Globulin Ratio 0.9 (1.0-2.7) L Current Medications Medications (Trade) Dose Ordered Sig/Nick Route PRN Reason Start Time Stop Time Status Last Admin Dose Admin Acetaminophen (Tylenol) 650 mg Q4H PRN ORAL fever (T>100.5) 04/01/20 17:45 05/01/20 17:44 Albuterol/ Ipratropium (Albuterol/ Ipratropium) 3 ml Q4H PRN HHN Shortness of Breath 04/01/20 17:45 04/06/20 17:44 Allopurinol (Zyloprim) 100 mg DAILY ORAL 04/02/20 09:00 05/02/20 08:59 04/05/20 09:44 Carvedilol (Coreg) 12.5 mg EVERY 12 HOURS ORAL 04/01/20 21:00 05/01/20 20:59 04/05/20 09:43 Chlorhexidine Gluconate (Esther-Hex 2%) 1 applic DAILY@2000 TOPIC 04/04/20 20:00 07/03/20 19:59 04/04/20 20:19 Clonidine HCl (Catapres TTS-1) 1 patch QWEEK TDERMAL 04/03/20 12:00 07/02/20 11:59 04/03/20 12:08 Clonidine HCl (Catapres Tab) 0.1 mg Q6H PRN ORAL For High Blood Pressure 04/02/20 11:15 07/01/20 11:14 04/05/20 09:44 Dextrose (Dextrose 50%) 25 ml Q30M PRN IV Hypoglycemia 04/01/20 17:45 06/30/20 17:44 Dextrose (Dextrose 50%) 50 ml Q30M PRN IV Hypoglycemia 04/01/20 17:45 06/30/20 17:44 Ertapenem 1 gm/ Sodium Chloride 55 ml @ 110 mls/hr Q24H IV 04/04/20 15:00 04/09/20 14:59 04/04/20 15:52 Escitalopram Oxalate (Lexapro) 5 mg DAILY ORAL 04/02/20 09:00 05/02/20 08:59 04/05/20 09:43 Gabapentin (Neurontin) 300 mg THREE TIMES A DAY ORAL 04/01/20 18:00 05/01/20 17:59 04/05/20 09:44 Heparin Sodium (Porcine) (Heparin 5000 units/ml) 5,000 units EVERY 12 HOURS SUBQ 04/01/20 21:00 05/16/20 20:59 04/05/20 09:45 Heparin Sodium/ Sodium Chloride (Heparin 1000 units/500ml Premix) 1,000 unit ONCE PRN IV PICC LINE 04/04/20 08:45 04/06/20 08:44 Insulin Aspart (NovoLOG) BEFORE MEALS AND HS SUBQ 04/01/20 21:00 06/30/20 20:59 04/05/20 11:51 Lidocaine HCl (Xylocaine 1% 30ml) 30 ml ONCE PRN INJ PICC LINE 04/04/20 08:45 04/06/20 08:44 Ondansetron HCl (Zofran) 4 mg Q6H PRN IVP Nausea & Vomiting 04/01/20 17:45 05/01/20 17:44 Polyethylene Glycol (Miralax) 17 gm DAILYPRN PRN ORAL Constipation 04/01/20 17:45 05/01/20 17:44 Sodium Chloride 1,000 ml @ 50 mls/hr Q20H IV 04/03/20 12:30 05/03/20 12:29 04/05/20 03:50 Temazepam (Restoril) 15 mg HSPRN PRN ORAL Insomnia 04/01/20 17:45 04/08/20 17:44 Kathryn Hernandez M.D. Apr 05, 2020 12:11
[2020-04-05] MEDS: Ertapenem 1 GM in NS 55 ML IV SCH (15:33)
[2020-04-05 16:00] VITALS: BP 138/60
--- NOTE | 2020-04-05 17:11 | Cardiology Report ---
APPROVED REPORT EKG Measurement Heart [id number] <Conclusion> Normal sinus rhythm Left axis deviation Voltage criteria for left ventricular hypertrophy Nonspecific T wave abnormality Abnormal ECG
--- NOTE | 2020-04-05 17:31 | Internal Med Progress Note ---
Subjective Date of Service: Apr 05, 2020 Physician Name Bk Kellogg Attending Physician Papa French MD Current Medications Medications (Trade) Dose Ordered Sig/Nick Route PRN Reason Start Time Stop Time Status Last Admin Dose Admin Acetaminophen (Tylenol) 650 mg Q4H PRN ORAL fever (T>100.5) 04/01/20 17:45 05/01/20 17:44 Albuterol/ Ipratropium (Albuterol/ Ipratropium) 3 ml Q4H PRN HHN Shortness of Breath 04/01/20 17:45 04/06/20 17:44 Allopurinol (Zyloprim) 100 mg DAILY ORAL 04/02/20 09:00 05/02/20 08:59 04/05/20 09:44 Carvedilol (Coreg) 12.5 mg EVERY 12 HOURS ORAL 04/01/20 21:00 05/01/20 20:59 04/05/20 09:43 Chlorhexidine Gluconate (Esther-Hex 2%) 1 applic DAILY@2000 TOPIC 04/04/20 20:00 07/03/20 19:59 04/04/20 20:19 Clonidine HCl (Catapres TTS-1) 1 patch QWEEK TDERMAL 04/03/20 12:00 07/02/20 11:59 04/03/20 12:08 Clonidine HCl (Catapres Tab) 0.1 mg Q6H PRN ORAL For High Blood Pressure 04/02/20 11:15 07/01/20 11:14 04/05/20 09:44 Dextrose (Dextrose 50%) 25 ml Q30M PRN IV Hypoglycemia 04/01/20 17:45 06/30/20 17:44 Dextrose (Dextrose 50%) 50 ml Q30M PRN IV Hypoglycemia 04/01/20 17:45 06/30/20 17:44 Ertapenem 1 gm/ Sodium Chloride 55 ml @ 110 mls/hr Q24H IV 04/04/20 15:00 04/09/20 14:59 04/05/20 15:33 Escitalopram Oxalate (Lexapro) 5 mg DAILY ORAL 04/02/20 09:00 05/02/20 08:59 04/05/20 09:43 Gabapentin (Neurontin) 300 mg THREE TIMES A DAY ORAL 04/01/20 18:00 05/01/20 17:59 04/05/20 13:40 Heparin Sodium (Porcine) (Heparin 5000 units/ml) 5,000 units EVERY 12 HOURS SUBQ 04/01/20 21:00 05/16/20 20:59 04/05/20 09:45 Heparin Sodium/ Sodium Chloride (Heparin 1000 units/500ml Premix) 1,000 unit ONCE PRN IV PICC LINE 04/04/20 08:45 04/06/20 08:44 Insulin Aspart (NovoLOG) BEFORE MEALS AND HS SUBQ 04/01/20 21:00 06/30/20 20:59 04/05/20 11:51 Lidocaine HCl (Xylocaine 1% 30ml) 30 ml ONCE PRN INJ PICC LINE 04/04/20 08:45 04/06/20 08:44 Ondansetron HCl (Zofran) 4 mg Q6H PRN IVP Nausea & Vomiting 04/01/20 17:45 05/01/20 17:44 Polyethylene Glycol (Miralax) 17 gm DAILYPRN PRN ORAL Constipation 04/01/20 17:45 05/01/20 17:44 Sodium Chloride 1,000 ml @ 50 mls/hr Q20H IV 04/03/20 12:30 05/03/20 12:29 04/05/20 03:50 Temazepam (Restoril) 15 mg HSPRN PRN ORAL Insomnia 04/01/20 17:45 04/08/20 17:44 Allergies: Coded Allergies: No Known Allergies (Unverified , 09/17/12) ROS Limited/Unobtainable: Yes Subjective 74 YO F with history of COVID 19 pneumonia in Mar 2020, admitted with altered mental status. Now UTI and possible sepsis. Cover for Int [facility]-Dr French Objective Last Vital Signs Date Time Temp Pulse Resp B/P (MAP) Pulse Ox O2 Delivery O2 Flow Rate FiO2 04/05/20 16:00 98.4 70 18 138/60 (86) 94 04/05/20 09:00 Room Air Laboratory Tests Test 04/05/20 04:00 White Blood Count 10.2 K/UL (4.8-10.8) Red Blood Count 3.30 M/UL (4.20-5.40) L Hemoglobin 9.1 G/DL (12.0-16.0) L Hematocrit 28.7 % (37.0-47.0) L Mean Corpuscular Volume 87 FL (80-99) Mean Corpuscular Hemoglobin 27.6 PG (27.0-31.0) Mean Corpuscular Hemoglobin Concent 31.7 G/DL (32.0-36.0) L Red Cell Distribution Width 14.7 % (11.6-14.8) Platelet Count 155 K/UL (150-450) Mean Platelet Volume 6.4 FL (6.5-10.1) L Neutrophils (%) (Auto) 66.7 % (45.0-75.0) Lymphocytes (%) (Auto) 22.0 % (20.0-45.0) Monocytes (%) (Auto) 8.2 % (1.0-10.0) Eosinophils (%) (Auto) 2.4 % (0.0-3.0) Basophils (%) (Auto) 0.6 % (0.0-2.0) Intake and Output 04/04/20 04/05/20 19:00 07:00 Intake Total 1405 ml 860 ml Balance 1405 ml 860 ml Intake Oral 720 ml IV Total 685 ml 500 ml Other 360 ml # Voids 2 # Bowel Movements 1 1 Objective PHYSICAL EXAMINATION: GENERAL: The patient is altered, less responsive, however, opens her eyes. HEAD AND NECK: Pupils are equal and reactive to light. Extraocular muscles intact. Neck was supple. No JVD. LUNGS: Good air entry. Decreased air in bases. No wheeze or rhonchi. HEART: S1, S2. Distant heart sounds. No murmurs or gallops. ABDOMEN: Soft, nondistended, and nontender. Mildly obese. EXTREMITIES: No cyanosis, clubbing, or edema. NEUROLOGIC: Limited secondary to the patient's status; however, the patient is moving all the extremities spontaneously. Cranial nerves II through XII grossly intact. RECTAL: Refused and deferred. GENITOURINARY: Refused and deferred. Assessment/Plan Assessment/Plan ASSESSMENT: 1. Altered mental status, most likely secondary to toxic metabolic encephalopathy as a result of infection. 2. Recurrent urinary tract infection. 3. COVID-19 positive. 4. Prior history of acute hypoxemic respiratory failure due to COVID-19 infection. 5. Prior history of E. coli ESBL as well as Klebsiella urinary tract infection. 6. Hypertension. 7. Diabetes type 2. 8. Chronic congestive heart failure. 9. Cardiomyopathy. 10. History of breast cancer. 11. Gout. 12. Prior history of CVA. 13. Morbid obesity. 14. Major depressive disorder. 15. urinary tract infection=ESBL E. Coli PLAN: 1. Admit the patient to medical floor. 2. antibiotic = ertapenem; S/P cefepime and vancomycin. 3. Code status = Full Code. 4. DVT prophylaxis=heparin subcutaneous. 5. Dr. Lux=Pulmonary Critical Care 6. Dr. Oviedo = Infectious Disease. 7. Await MRI brain 8. CT brain=no acute hemorrhage or infarct 9. Await MRI brain Bk Kellogg MD Apr 05, 2020 17:31
--- NOTE | 2020-04-05 19:19 | NUR ---
NURSE HAND-OFF: Important Events on Shift:n/a Patient Status: alert and awake Diet: regular softeasy chew Pending Orders: n/a Pending Results/Labs:n/a Pending MD notification:n/a Latest Vital Signs: Temperature 98.4 , Pulse 70 , B/P 138 /60 , Respiratory Rate 18 , O2 SAT 94 , Room Air, O2 Flow Rate . Vital Sign Comment: Latest Garcia Fall Score: 50 Fall Risk: High Risk Safety Measures: Call light Within Reach, Bed Alarm Zone 1, Side Rails Side Rails x3, Bed position Low and Locked. Fall Precautions: Yellow Socks Yellow Gown Door Sign Patient Fall Education Report given to Niya.
--- NOTE | 2020-04-05 19:32 | NUR ---
NURSE NOTES: Patient awake in bed, on room air. Instructed to use call light for assistance. Bed in lowest, alarm on and lock engaged. Will continue plan of care.
[2020-04-05 20:00] VITALS: BP 156/56
[2020-04-05] MEDS: Dyna-Hex 2% Top Sol 2oz TOPIC SCH (20:26)
[2020-04-06] VITALS: BP 140/68
[2020-04-06 04:00] VITALS: BP 147/91
[2020-04-06] MEDS: NovoLOG Insulin Flexpen SUBQ SCH ×2 (04:57→12:18)
[2020-04-06 06:13] LABS: HEMATOCRIT 29.5 % (37.0-47.0); HEMOGLOBIN 9.6 G/DL (12.0-16.0); MEAN CORPUSCULAR VOLUME 86 FL (80-99); PLATELET COUNT 92 K/UL (150-450); RED BLOOD COUNT 3.42 M/UL (4.20-5.40); RED CELL DISTRIBUTION WIDTH 14.8 % (11.6-14.8); WHITE BLOOD COUNT 10.7 K/UL (4.8-10.8)
[2020-04-06 06:28] LABS: ANION GAP 10 mmol/L (5-15); BLOOD UREA NITROGEN 17 mg/dL (7-18); CALCIUM 8.2 MG/DL (8.5-10.1); CARBON DIOXIDE 25 MMOL/L (21-32); CHLORIDE 104 MMOL/L (98-107); POTASSIUM 3.6 MMOL/L (3.5-5.1); SODIUM 139 MMOL/L (136-145)
--- NOTE | 2020-04-06 06:37 | NUR ---
NURSE NOTES: Blood drawn for AM labs and handed to [facility].
--- NOTE | 2020-04-06 06:51 | NUR ---
NURSE HAND-OFF: Important Events on Shift: More hydration Patient Status: more alert Diet: Regular Pending Orders: AM labs Pending Results/Labs:bmp,cbc Pending MD notification: Latest Vital Signs: Temperature 97.9 , Pulse 78 , B/P 147 /91 , Respiratory Rate 20 , O2 SAT 92 , Room Air, O2 Flow Rate . Vital Sign Comment: Latest Garcia Fall Score: 50 Fall Risk: High Risk Safety Measures: Call light Within Reach, Bed Alarm Zone 1, Side Rails Side Rails x3, Bed position Low and Locked. Fall Precautions: Yellow Socks Yellow Gown Door Sign Patient Fall Education
--- NOTE | 2020-04-06 07:28 | NUR ---
HAND-OFF: Report given to PRITESH Payne
--- NOTE | 2020-04-06 07:56 | NUR ---
NURSE NOTES: pt is awake in bed. set-up breakfast tray for pt. elevated HOB. encouraged pt to eat, pt is compliant. no SOB noted. remains on room air. denies any chest pain and discomfort. no acute distress noted. call light within reach, will follow plan of care.
[2020-04-06 08:00] VITALS: BP 180/73
[2020-04-06] MEDS: Carvedilol 12.5mg tab ORAL SCH (08:30)
[2020-04-06] MEDS: Allopurinol 100mg Tab ORAL SCH (08:31)
[2020-04-06] MEDS: Heparin 5000 units/ml inj SUBQ SCH (09:00)
--- NOTE | 2020-04-06 11:34 | Internal Med Progress Note ---
Subjective Date of Service: Apr 06, 2020 Physician Name Bk Kellogg Attending Physician Papa French MD Current Medications Medications (Trade) Dose Ordered Sig/Nick Route PRN Reason Start Time Stop Time Status Last Admin Dose Admin Acetaminophen (Tylenol) 650 mg Q4H PRN ORAL fever (T>100.5) 04/01/20 17:45 05/01/20 17:44 Albuterol/ Ipratropium (Albuterol/ Ipratropium) 3 ml Q4H PRN HHN Shortness of Breath 04/01/20 17:45 04/06/20 17:44 Allopurinol (Zyloprim) 100 mg DAILY ORAL 04/02/20 09:00 05/02/20 08:59 04/06/20 08:31 Carvedilol (Coreg) 12.5 mg EVERY 12 HOURS ORAL 04/01/20 21:00 05/01/20 20:59 04/06/20 08:30 Chlorhexidine Gluconate (Esther-Hex 2%) 1 applic DAILY@2000 TOPIC 04/04/20 20:00 07/03/20 19:59 04/05/20 20:26 Clonidine HCl (Catapres TTS-1) 1 patch QWEEK TDERMAL 04/03/20 12:00 07/02/20 11:59 04/03/20 12:08 Clonidine HCl (Catapres Tab) 0.1 mg Q6H PRN ORAL For High Blood Pressure 04/02/20 11:15 07/01/20 11:14 04/06/20 08:30 Dextrose (Dextrose 50%) 25 ml Q30M PRN IV Hypoglycemia 04/01/20 17:45 06/30/20 17:44 Dextrose (Dextrose 50%) 50 ml Q30M PRN IV Hypoglycemia 04/01/20 17:45 06/30/20 17:44 Ertapenem 1 gm/ Sodium Chloride 55 ml @ 110 mls/hr Q24H IV 04/04/20 15:00 04/09/20 14:59 04/05/20 15:33 Escitalopram Oxalate (Lexapro) 5 mg DAILY ORAL 04/02/20 09:00 05/02/20 08:59 04/06/20 08:30 Gabapentin (Neurontin) 300 mg THREE TIMES A DAY ORAL 04/01/20 18:00 05/01/20 17:59 04/06/20 08:30 Heparin Sodium (Porcine) (Heparin 5000 units/ml) 5,000 units EVERY 12 HOURS SUBQ 04/01/20 21:00 05/16/20 20:59 04/05/20 20:28 Insulin Aspart (NovoLOG) BEFORE MEALS AND HS SUBQ 04/01/20 21:00 06/30/20 20:59 04/06/20 04:57 Ondansetron HCl (Zofran) 4 mg Q6H PRN IVP Nausea & Vomiting 04/01/20 17:45 05/01/20 17:44 Polyethylene Glycol (Miralax) 17 gm DAILYPRN PRN ORAL Constipation 04/01/20 17:45 05/01/20 17:44 Sodium Chloride 1,000 ml @ 50 mls/hr Q20H IV 04/03/20 12:30 05/03/20 12:29 04/06/20 01:43 Temazepam (Restoril) 15 mg HSPRN PRN ORAL Insomnia 04/01/20 17:45 04/08/20 17:44 Allergies: Coded Allergies: No Known Allergies (Unverified , 09/17/12) Subjective 74 YO F with history of COVID 19 pneumonia in Mar 2020, admitted with altered mental status. Now UTI and possible sepsis. Cover for Int Med-Dr French Objective Last Vital Signs Date Time Temp Pulse Resp B/P (MAP) Pulse Ox O2 Delivery O2 Flow Rate FiO2 04/06/20 09:00 Room Air 04/06/20 08:30 180/73 04/06/20 08:30 65 04/06/20 08:00 97.7 20 99 Laboratory Tests Test 04/05/20 16:22 04/06/20 04:35 POC Whole Blood Glucose 179 MG/DL (74-106) H White Blood Count 10.7 K/UL (4.8-10.8) Red Blood Count 3.42 M/UL (4.20-5.40) L Hemoglobin 9.6 G/DL (12.0-16.0) L Hematocrit 29.5 % (37.0-47.0) L Mean Corpuscular Volume 86 FL (80-99) Mean Corpuscular Hemoglobin 28.1 PG (27.0-31.0) Mean Corpuscular Hemoglobin Concent 32.6 G/DL (32.0-36.0) Red Cell Distribution Width 14.8 % (11.6-14.8) Platelet Count 92 K/UL (150-450) L Mean Platelet Volume 5.9 FL (6.5-10.1) L Neutrophils (%) (Auto) % (45.0-75.0) Lymphocytes (%) (Auto) % (20.0-45.0) Monocytes (%) (Auto) % (1.0-10.0) Eosinophils (%) (Auto) % (0.0-3.0) Basophils (%) (Auto) % (0.0-2.0) Differential Total Cells Counted 100 Neutrophils % (Manual) 75 % (45-75) Lymphocytes % (Manual) 18 % (20-45) L Monocytes % (Manual) 4 % (1-10) Eosinophils % (Manual) 3 % (0-3) Basophils % (Manual) 0 % (0-2) Band Neutrophils 0 % (0-8) Platelet Estimate Decreased L Platelet Morphology Normal Anisocytosis 1+ Sodium Level 139 MMOL/L (136-145) Potassium Level 3.6 MMOL/L (3.5-5.1) Chloride Level 104 MMOL/L (98-107) Carbon Dioxide Level 25 MMOL/L (21-32) Anion Gap 10 mmol/L (5-15) Blood Urea Nitrogen 17 mg/dL (7-18) Creatinine 1.0 MG/DL (0.55-1.30) Estimat Glomerular Filtration Rate > 60 mL/min (>60) Glucose Level 139 MG/DL (74-106) H Calcium Level 8.2 MG/DL (8.5-10.1) L Intake and Output 04/05/20 04/06/20 19:00 07:00 Intake Total 1370 ml 1225 ml Balance 1370 ml 1225 ml Intake Oral 1320 ml 700 ml IV Total 50 ml 525 ml # Voids 3 2 Objective PHYSICAL EXAMINATION: GENERAL: The patient is altered, less responsive, however, opens her eyes. HEAD AND NECK: Pupils are equal and reactive to light. Extraocular muscles intact. Neck was supple. No JVD. LUNGS: Good air entry. Decreased air in bases. No wheeze or rhonchi. HEART: S1, S2. Distant heart sounds. No murmurs or gallops. ABDOMEN: Soft, nondistended, and nontender. Mildly obese. EXTREMITIES: No cyanosis, clubbing, or edema. NEUROLOGIC: Limited secondary to the patient's status; however, the patient is moving all the extremities spontaneously. Cranial nerves II through XII grossly intact. RECTAL: Refused and deferred. GENITOURINARY: Refused and deferred. Assessment/Plan Assessment/Plan ASSESSMENT: 1. Altered mental status, most likely secondary to toxic metabolic encephalopathy as a result of infection. 2. Recurrent urinary tract infection. 3. COVID-19 positive. 4. Prior history of acute hypoxemic respiratory failure due to COVID-19 infection. 5. Prior history of E. coli ESBL as well as Klebsiella urinary tract infection. 6. Hypertension. 7. Diabetes type 2. 8. Chronic congestive heart failure. 9. Cardiomyopathy. 10. History of breast cancer. 11. Gout. 12. Prior history of CVA. 13. Morbid obesity. 14. Major depressive disorder. 15. urinary tract infection=ESBL E. Coli PLAN: 1. Admit the patient to medical floor. 2. antibiotic = ertapenem; S/P cefepime and vancomycin. 3. Code status = Full Code. 4. DVT prophylaxis=heparin subcutaneous. 5. Dr. Lux=Pulmonary Critical Care 6. Dr. O[place]iedo = Infectious Disease. 7. Await MRI brain 8. CT brain=no acute hemorrhage or infarct 9. Await MRI brain Bk Kellogg MD Apr 06, 2020 11:34
--- NOTE | 2020-04-06 11:49 | Infectious Diseases Prog Note ---
Assessment/Plan Assessment/Plan: Recent COVID19 Pneumonia(dx'ed 03/15); still PCR positive- at [facility] -04/01 rapid COVID PCR + CXR: Improved and nearly resolved bilateral interstitial and airspace infiltrates versus edema, over 4 days -03/22 CXR: Cardiomegaly. Decreased and now minimal interstitial congestion -03/21 CXR: Suspect slightly increased interstitial congestion. Cardiomegaly -03/18 rapid COVID PCR + CXR: Possible early infiltrate right midlung. No fever No leukocytosis Acute encephalopathy -04/01 CT head: No acute intracranial abnormality. If there is persistent concern for acute infarct, consider further evaluation with MRI. Prominent chronic small vessel ischemic changes and cerebral volume loss. Probable small remote lacunar infarcts in the thalami. UTI -04/01u/a wbc 60-80, nit +, leuk +3; ucx >100k ESBL E.coli, 20-30k ESBL E.coli hx of Gram positive bacteremia - Likely contaminants -03/21 Bcx neg -03/18 Bcx 1/4 S. warneri, 07/04 S. hominis; 03/20 Bcx 1/4 S.auricularis; 03/21 Bcx NTD CHF obesity HTN Dm2 CVA Plan: - Ertapenem #/-7 for ESBL UTI - f/u Cultures -04/04 SP IV Vancomycin #4, Cefepime #4 - 03/28/20 SP Decadron #10/10 - 03/27/20 SP Meropenem #7/7 for ESBL UTI - 03/25/20 SP IV Vancomcyin #9 - 03/24/20 SP Remdesivir #5/5 -03/22 SP Azithromycin #6 -03/20 SP Cefepime #4 -03/18 SP Ceftriaxone x1 -f/u cx -Monitor CBC/CMP, temperatures -on COVID19 isolation; at this point can dc isolation as more than 10 days and afebrile; symptoms resolved Thank you for this consult. [facility] will continue to follow. Subjective Allergies: Coded Allergies: No Known Allergies (Unverified , 09/17/12) afebrile no leukocytosis Objective Last 24 Hour Vital Signs Date Time Temp Pulse Resp B/P (MAP) Pulse Ox O2 Delivery O2 Flow Rate FiO2 04/06/20 09:00 Room Air 04/06/20 08:30 180/73 04/06/20 08:30 65 180/73 04/06/20 08:00 97.7 65 20 180/73 (108) 99 04/06/20 04:00 97.9 78 20 147/91 (109) 92 04/06/20 00:00 96.8 58 18 140/68 (92) 93 04/05/20 21:00 Room Air 04/05/20 20:26 66 156/56 04/05/20 20:00 99.7 66 18 156/56 (89) 92 04/05/20 16:00 98.4 70 18 138/60 (86) 94 04/05/20 12:00 98.2 70 18 162/65 (97) 95 Height (Feet): 5 Height (Inches): 7.00 Weight (Pounds): 225 GEN: NAD NECK Supple No LAD HEART: RRR, S1, S2 LUNGS: CTAB, No W ABD: Soft, NT, ND NEURO: A/o X0 Not following, moving ext Laboratory Tests Test 04/05/20 16:22 04/06/20 04:35 POC Whole Blood Glucose 179 MG/DL (74-106) H White Blood Count 10.7 K/UL (4.8-10.8) Red Blood Count 3.42 M/UL (4.20-5.40) L Hemoglobin 9.6 G/DL (12.0-16.0) L Hematocrit 29.5 % (37.0-47.0) L Mean Corpuscular Volume 86 FL (80-99) Mean Corpuscular Hemoglobin 28.1 PG (27.0-31.0) Mean Corpuscular Hemoglobin Concent 32.6 G/DL (32.0-36.0) Red Cell Distribution Width 14.8 % (11.6-14.8) Platelet Count 92 K/UL (150-450) L Mean Platelet Volume 5.9 FL (6.5-10.1) L Neutrophils (%) (Auto) % (45.0-75.0) Lymphocytes (%) (Auto) % (20.0-45.0) Monocytes (%) (Auto) % (1.0-10.0) Eosinophils (%) (Auto) % (0.0-3.0) Basophils (%) (Auto) % (0.0-2.0) Differential Total Cells Counted 100 Neutrophils % (Manual) 75 % (45-75) Lymphocytes % (Manual) 18 % (20-45) L Monocytes % (Manual) 4 % (1-10) Eosinophils % (Manual) 3 % (0-3) Basophils % (Manual) 0 % (0-2) Band Neutrophils 0 % (0-8) Platelet Estimate Decreased L Platelet Morphology Normal Anisocytosis 1+ Sodium Level 139 MMOL/L (136-145) Potassium Level 3.6 MMOL/L (3.5-5.1) Chloride Level 104 MMOL/L (98-107) Carbon Dioxide Level 25 MMOL/L (21-32) Anion Gap 10 mmol/L (5-15) Blood Urea Nitrogen 17 mg/dL (7-18) Creatinine 1.0 MG/DL (0.55-1.30) Estimat Glomerular Filtration Rate > 60 mL/min (>60) Glucose Level 139 MG/DL (74-106) H Calcium Level 8.2 MG/DL (8.5-10.1) L Current Medications Medications (Trade) Dose Ordered Sig/Nick Route PRN Reason Start Time Stop Time Status Last Admin Dose Admin Acetaminophen (Tylenol) 650 mg Q4H PRN ORAL fever (T>100.5) 04/01/20 17:45 05/01/20 17:44 Albuterol/ Ipratropium (Albuterol/ Ipratropium) 3 ml Q4H PRN HHN Shortness of Breath 04/01/20 17:45 04/06/20 17:44 Allopurinol (Zyloprim) 100 mg DAILY ORAL 04/02/20 09:00 05/02/20 08:59 04/06/20 08:31 Carvedilol (Coreg) 12.5 mg EVERY 12 HOURS ORAL 04/01/20 21:00 05/01/20 20:59 04/06/20 08:30 Chlorhexidine Gluconate (Esther-Hex 2%) 1 applic DAILY@1999 TOPIC 04/04/20 20:00 07/03/20 19:59 04/05/20 20:26 Clonidine HCl (Catapres TTS-1) 1 patch QWEEK TDERMAL 04/03/20 12:00 07/02/20 11:59 04/03/20 12:08 Clonidine HCl (Catapres Tab) 0.1 mg Q6H PRN ORAL For High Blood Pressure 04/02/20 11:15 07/01/20 11:14 04/06/20 08:30 Dextrose (Dextrose 50%) 25 ml Q30M PRN IV Hypoglycemia 04/01/20 17:45 06/30/20 17:44 Dextrose (Dextrose 50%) 50 ml Q30M PRN IV Hypoglycemia 04/01/20 17:45 06/30/20 17:44 Ertapenem 1 gm/ Sodium Chloride 55 ml @ 110 mls/hr Q24H IV 04/04/20 15:00 04/09/20 14:59 04/05/20 15:33 Escitalopram Oxalate (Lexapro) 5 mg DAILY ORAL 04/02/20 09:00 05/02/20 08:59 04/06/20 08:30 Gabapentin (Neurontin) 300 mg THREE TIMES A DAY ORAL 04/01/20 18:00 05/01/20 17:59 04/06/20 08:30 Heparin Sodium (Porcine) (Heparin 5000 units/ml) 5,000 units EVERY 12 HOURS SUBQ 04/01/20 21:00 05/16/20 20:59 04/05/20 20:28 Insulin Aspart (NovoLOG) BEFORE MEALS AND HS SUBQ 04/01/20 21:00 06/30/20 20:59 04/06/20 04:57 Ondansetron HCl (Zofran) 4 mg Q6H PRN IVP Nausea & Vomiting 04/01/20 17:45 05/01/20 17:44 Polyethylene Glycol (Miralax) 17 gm DAILYPRN PRN ORAL Constipation 04/01/20 17:45 05/01/20 17:44 Sodium Chloride 1,000 ml @ 50 mls/hr Q20H IV 04/03/20 12:30 05/03/20 12:29 04/06/20 01:43 Temazepam (Restoril) 15 mg HSPRN PRN ORAL Insomnia 04/01/20 17:45 04/08/20 17:44 Kathryn Hernandez M.D. Apr 06, 2020 11:49
--- NOTE | 2020-04-06 11:50 | Pulmonology Progress Note ---
Subjective ROS Limited/Unobtainable: Yes Constitutional: Reports: no symptoms HEENT: Repors: no symptoms Allergies: Coded Allergies: No Known Allergies (Unverified , 09/17/12) Objective Last 24 Hour Vital Signs Date Time Temp Pulse Resp B/P (MAP) Pulse Ox O2 Delivery O2 Flow Rate FiO2 04/06/20 09:00 Room Air 04/06/20 08:30 180/73 04/06/20 08:30 65 180/73 04/06/20 08:00 97.7 65 20 180/73 (108) 99 04/06/20 04:00 97.9 78 20 147/91 (109) 92 04/06/20 00:00 96.8 58 18 140/68 (92) 93 04/05/20 21:00 Room Air 04/05/20 20:26 66 156/56 04/05/20 20:00 99.7 66 18 156/56 (89) 92 04/05/20 16:00 98.4 70 18 138/60 (86) 94 04/05/20 12:00 98.2 70 18 162/65 (97) 95 Intake and Output 04/05/20 04/06/20 19:00 07:00 Intake Total 1370 ml 1225 ml Balance 1370 ml 1225 ml Intake Oral 1320 ml 700 ml IV Total 50 ml 525 ml # Voids 3 2 General Appearance: WD/WN HEENT: normocephalic, atraumatic Respiratory: chest wall non-tender, lungs clear Cardiovascular: normal peripheral pulses, normal rate Abdomen: normal bowel sounds, soft, non tender Genitourinary: normal external genitalia Extremities: no cyanosis Skin: no rash 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 normal Laboratory Tests 04/05/20 16:22: POC Whole Blood Glucose 179H 04/06/20 04:35: White Blood Count 10.7, Red Blood Count 3.42L, Hemoglobin 9.6L, Hematocrit 29.5L , Mean Corpuscular Volume 86, Mean Corpuscular Hemoglobin 28.1, Mean Corpuscular Hemoglobin Concent 32.6, Red Cell Distribution Width 14.8, Platelet Count 92L, Mean Platelet Volume 5.9L, Neutrophils (%) (Auto) , Lymphocytes (%) (Auto) , Monocytes (%) (Auto) , Eosinophils (%) (Auto) , Basophils (%) (Auto) , Differential Total Cells Counted 100, Neutrophils % (Manual) 75, Lymphocytes % (Manual) 18L, Monocytes % (Manual) 4, Eosinophils % (Manual) 3, Basophils % (Manual) 0, Band Neutrophils 0, Platelet Estimate DecreasedL, Platelet Morphology Normal, Anisocytosis 1+, Sodium Level 139, Potassium Level 3.6, Chloride Level 104, Carbon Dioxide Level 25, Anion Gap 10, Blood Urea Nitrogen 17, Creatinine 1.0, Estimat Glomerular Filtration Rate > 60, Glucose Level 139H, Calcium Level 8.2L Current Medications Medications (Trade) Dose Ordered Sig/Nick Route PRN Reason Start Time Stop Time Status Last Admin Dose Admin Acetaminophen (Tylenol) 650 mg Q4H PRN ORAL fever (T>100.5) 04/01/20 17:45 05/01/20 17:44 Albuterol/ Ipratropium (Albuterol/ Ipratropium) 3 ml Q4H PRN HHN Shortness of Breath 04/01/20 17:45 04/06/20 17:44 Allopurinol (Zyloprim) 100 mg DAILY ORAL 04/02/20 09:00 05/02/20 08:59 04/06/20 08:31 Carvedilol (Coreg) 12.5 mg EVERY 12 HOURS ORAL 04/01/20 21:00 05/01/20 20:59 04/06/20 08:30 Chlorhexidine Gluconate (Esther-Hex 2%) 1 applic DAILY@2000 TOPIC 04/04/20 20:00 07/03/20 19:59 04/05/20 20:26 Clonidine HCl (Catapres TTS-1) 1 patch QWEEK TDERMAL 04/03/20 12:00 07/02/20 11:59 04/03/20 12:08 Clonidine HCl (Catapres Tab) 0.1 mg Q6H PRN ORAL For High Blood Pressure 04/02/20 11:15 07/01/20 11:14 04/06/20 08:30 Dextrose (Dextrose 50%) 25 ml Q30M PRN IV Hypoglycemia 04/01/20 17:45 06/30/20 17:44 Dextrose (Dextrose 50%) 50 ml Q30M PRN IV Hypoglycemia 04/01/20 17:45 06/30/20 17:44 Ertapenem 1 gm/ Sodium Chloride 55 ml @ 110 mls/hr Q24H IV 04/04/20 15:00 04/09/20 14:59 04/05/20 15:33 Escitalopram Oxalate (Lexapro) 5 mg DAILY ORAL 04/02/20 09:00 05/02/20 08:59 04/06/20 08:30 Gabapentin (Neurontin) 300 mg THREE TIMES A DAY ORAL 04/01/20 18:00 05/01/20 17:59 04/06/20 08:30 Heparin Sodium (Porcine) (Heparin 5000 units/ml) 5,000 units EVERY 12 HOURS SUBQ 04/01/20 21:00 05/16/20 20:59 04/05/20 20:28 Insulin Aspart (NovoLOG) BEFORE MEALS AND HS SUBQ 04/01/20 21:00 06/30/20 20:59 04/06/20 04:57 Ondansetron HCl (Zofran) 4 mg Q6H PRN IVP Nausea & Vomiting 04/01/20 17:45 05/01/20 17:44 Polyethylene Glycol (Miralax) 17 gm DAILYPRN PRN ORAL Constipation 04/01/20 17:45 05/01/20 17:44 Sodium Chloride 1,000 ml @ 50 mls/hr Q20H IV 04/03/20 12:30 05/03/20 12:29 04/06/20 01:43 Temazepam (Restoril) 15 mg HSPRN PRN ORAL Insomnia 04/01/20 17:45 04/08/20 17:44 Assessment/Plan Problems: (1) Altered level of consciousness (2) UTI (urinary tract infection) (3) 2019 novel coronavirus disease (COVID-19) (4) Diabetes mellitus (5) History of hypertension Assessment/Plan wbc Wnl CT of head was negative hi culture iv abx by ID, on Ertapenem iv fluids aspiration precaution ID evaluation appreciated Neuro evaluation dvt prophylaxis siding scale dc to long term with IV Ertapenem Calli Lux MD Apr 06, 2020 11:50
[2020-04-06] MEDS ORDERED: INVANZ1 G1 IM (11:52)
[2020-04-06] MEDS ORDERED: NEURONTIN300 MG ORAL (11:52)
[2020-04-06 12:00] VITALS: BP 156/60
--- NOTE | 2020-04-06 13:18 | NUR ---
*-*DISCHARGE PLANNING*-* PATIENT HAS BEEN REFERRED BACK TO: [facility] P: [phone] S/W YOVANI, WILL CALL BACK
--- NOTE | 2020-04-06 13:46 | NUR ---
*-*DISCHARGE PLANNED*-* PATIENT HAS BEEN ACCEPTED AND WILL BE DISCHARGED BACK TO: [facility] P: [phone] FOR NURSE REPORT ROOM# 15.[facility] SET FOR 3PM S/W IGNACIO [id number]. S/W PATIENTS DAUGHTER , KAITLYNN BA, WHO IS IN AGREEMENT WITH DC PLAN.
[2020-04-06] MEDS: Ertapenem 1 GM in NS 55 ML IV SCH (15:00)
--- NOTE | 2020-04-06 15:50 | NUR ---
NURSE NOTE: Patient is discharged to [facility] without any signs of distress. Patient is awake. A&O x 2-3 with episodes of confusion. Respiration is even and unlabored on room air. Denies any pain and discomfort at this time. skin is intact. pt unable to understand discharge teaching because of episodes of confusion. pt unable to sign inventory form. IV site and wrist band removed. Patient is placed in a gurney, transported via [facility] accompanied by 2 [employer].
--- NOTE | 2020-04-07 20:58 | Discharge Summary ---
Discharge Summary Discharge Summary _ DATE OF ADMISSION: 04/01/2020 DATE OF DISCHARGE: 04/06/2020 ADMITTING MD: Dr. Papa French DISCHARGED BY: Dr. Calli Lux CONSULTANTS: Dr. Calli Hernandez BRIEF HOSPITAL COURSE: Patient is a 74-year-old unfortunate female with past medical history significant for congestive heart failure, morbid obesity, hypertension, diabetes type 2, prior history of stroke, and history of recent COVID-19 infection, who presented initially to [facility] on March. She was noted to have COVID-19 pneumonia and was treated for acute hypoxemic respiratory failure secondary to COVID infection as well as ESBL E. coli Klebsiella UTI. The patient was discharged back to nursing facility on March 13, 2020. However since arrival, patient was not eating, became more altered than usual and less responsive. Patient was then transferred back to the hospital for further evaluation. Shortly after initial evaluation in the emergency department, patient was admitted due to altered mental status, most likely secondary to toxic metabolic encephalopathy, possible as a result of infection. She was admitted to medical floor. She was started empirically on broad- spectrum antibiotic with cefepime and vancomycin. shelter medications were resumed. She was placed on Heparin for DVT prophylaxis. She had WBC of 13 and urinalysis was positive for infection. She was placed on isolation. Patient was still PCR positive. The patient was noted to be less responsive. On April 03, she underwent a head CT. CT did not show any acute intracranial abnormality. No acute hemorrhage or infarct. Urine culture showed growth of ESBL E. coli. Cefepime was changed to ertapenem. Blood culture did not isolate any growth. IV vancomycin was discontinued. A PICC line was inserted to the left arm. [facility]. FINAL DIAGNOSES: Recent COVID-19 pneumonia Acute toxic metabolic encephalopathy ESBL E. coli UTI Chronic CHF Cardiomyopathy History of breast cancer Major depressive disorder Morbid obesity Hypertension Diabetes type 2 Old CVA DISPOSITION: Patient was [facility] back to jail. DISCHARGE MEDICATIONS: Refer to Discharge Medication List. I have been assigned to complete a discharge summary on this account, I was not involved with the patient's management.--FAB Scott Jacqueline Robles NP Apr 07, 2020 20:58
== END 2020-04-06 15:50 | DRG 177 ==
LOC: EDBD 13:49 → EMR 14:32 → EDBEDREQ 14:48 → 4E 15:10 → EDBEDREQ 15:29
PROC: 02HV33Z Insertion of Infusion Device into Superior Vena Cava, Percutaneous Approach (ICD-10-PCS; principal; 2020-04-04)
DX: U07.1 COVID-19 (principal); J96.01 Acute respiratory failure with hypoxia; G92 Toxic encephalopathy; N39.0 Urinary tract infection, site not specified; I42.9 Cardiomyopathy, unspecified; Z16.12 Extended spectrum beta lactamase (ESBL) resistance; I11.0 Hypertensive heart disease with heart failure; I50.9 Heart failure, unspecified; E66.01 Morbid (severe) obesity due to excess calories; Z86.73 Personal history of transient ischemic attack (TIA), and cerebral infarction without residual deficits; F32.9 Major depressive disorder, single episode, unspecified; Z85.3 Personal history of malignant neoplasm of breast; M10.9 Gout, unspecified; Z79.4 Long term (current) use of insulin; E11.9 Type 2 diabetes mellitus without complications; B96.20 Unspecified Escherichia coli [E. coli] as the cause of diseases classified elsewhere
CPT/HCPCS: 36415; 36569; 70450; 71045; 74176; 76937; 80048; 80053; 80202; 81001; 81003; 82550; 82553; 82962; 83605; 83690; 83735; 84100; 84484; 85007; 85025; 85651; 86140; 87040; 87081; 87086; 87181; 93005; 96361; 96365; 99285; J1815; J7030; J8499; U0002